=== PATIENT | female | born 1965 | race Caucasian/White ===

== ENCOUNTER 2019-08-05 12:59 | Outpatient (CLI) | payer MEDICAID, SELFPAY ==
--- NOTE | 2019-08-05 13:09 | USCV_ITS ---
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 Biphasic Triphasic 62.7 SFA Prox 73.6 Triphasic Triphasic 72.9 SFA Mid 106.0 Triphasic Triphasic 80.0 SFA Dist 54.8 Biphasic Biphasic 54.2 POP 52.7 Biphasic Biphasic 58.5 RN POOL 43.7 Biphasic Biphasic 19.6 DPA 27.5 Biphasic 1.1 APRIL 1.0 FINDINGS TBI'S RT .68 LT .71 Normal resting ABIs bilaterally Minimally diminished resting TBI on the right side Normal resting TBI on the left side CONCLUSIONS Features of mild peripheral arterial disease on the right side Possibly no significant arterial obstruction on the left side Consider exercise APRIL, if clinically indicated Dr Meño Neff MD [facility] (Electronically Signed) Final Date: 05 August 2019 15:29 S
== END 2019-08-05 13:00 | disposition home or self-care (01) ==
LOC: RAD 13:02
PROVIDERS: Family Provider Family Medicine; PCP Family Medicine; Visit Provider Family Medicine
DX: I73.9 Peripheral vascular disease, unspecified (principal); R25.2 Cramp and spasm; F17.200 Nicotine dependence, unspecified, uncomplicated
CPT/HCPCS: 93925

== ENCOUNTER 2019-08-15 17:44 | Emergency (ER) | payer MEDICAID, SELFPAY ==
[2019-08-15 17:57] VITALS: BP 131/73; PULSE 85; RESP 16; TEMP 36.6; O2SAT 98; BMI 16.1
--- NOTE | 2019-08-15 21:21 | W.ED.EXTPRO ---
HPI - Extremity Problem General: Chief complaint: Extremity Problem,Nontraumatic Stated complaint: BILAT LOWER EXT PAIN Time Seen by Provider: 08/15/19 21:16 History of Present Illness: HPI Narrative: Patient desiring pain medicine for her lower extremity pain patient has had diagnosis of PAD has had 3 separate test ran she is going for a treadmill here in and on the has no other complaints of pain MD Complaint: extremity pain Onset (ago): year(s) Location: left and right Severity scale (1-10): 5 Quality: burning Relieving factors: nothing Associated symptoms: Deny chest pain, fever(s) or rash Review of Systems Const: Denies: fever, chills or body aches Eyes: Denies: change in vision or blurry vision ENMT: Denies: throat pain or nasal congestion Card: Denies: chest pain or shortness of breath on exertion Resp: Denies: shortness of breath, productive cough or non-productive cough GI: Denies: abdominal pain, nausea or vomiting Musc: Reports: extremity pain Skin/Breast: Denies: rash Neuro: Denies: headache Psych: Denies: anxiety or depression Gigi/Lymph: Denies: easy bruising PFSH ED PFSH: Statuses (acute, chronic, etc) shown below reflect problem list status as previously entered and may not be historically accurate Social History Smoking and tobacco status: former smoker Physical Exam Const: COMMON NORMALS: no apparent distress, average body habitus and oriented x3 HENMT: COMMON NORMALS: normocephalic HEAD & SCALP: normal to inspection and normocephalic FACE & SINUS: normal facial exam Eye: COMMON NORMALS: conjunctivae normal GENERAL EYE: normal appearance of both eyes CONJUNCTIVA: Yes conjunctivae normal Neck/C-Spine: COMMON NORMALS: no JVD Chest: COMMONS NORMALS: inspection of chest normal Resp: COMMON NORMALS: normal respiratory effort and clear to auscultation bilaterally AUSCULTATION: clear to auscultation bilaterally Cardio: COMMON NORMALS: no JVD, regular rate and regular rhythm RATE: regular rate RHYTHM: regular rhythm GI: COMMON NORMALS: normal to inspection, nondistended, normoactive bowel sounds Extremity: COMMON NORMALS: normal to inspection and full ROM OTHER: Both lower extremities have 1+ pulses no swelling they are warm to the touch Neuro: COMMON NORMALS: oriented x3 Course Vital Signs: Vital signs: Vital Signs Temperature 97.8 F 08/15/19 17:57 Pulse Rate 85 08/15/19 17:57 Respiratory Rate 16 08/15/19 17:57 Blood Pressure 131/73 08/15/19 17:57 Pulse Oximetry 98 08/15/19 17:57 Discharge Plan Discharge Condition: Stable Coding Level of Care Code 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
[2019-08-15] MEDS: HYDROcodone-acetaminophen 5-325 mg Tablet 1 TAB PO (21:36)
[2019-08-15 21:47] VITALS: BP 112/69; PULSE 82; RESP 18; O2SAT 96
== END 2019-08-15 21:48 | disposition home or self-care (01) ==
PROVIDERS: Emergency Provider Nurse Practitioner Family; Family Provider Family Medicine; PCP Family Medicine
DX: M79.604 Pain in right leg (principal); M79.605 Pain in left leg; Z87.891 Personal history of nicotine dependence
CPT/HCPCS: 99281

== ENCOUNTER 2019-08-23 07:36 | Outpatient (CLI) | payer MEDICAID, SELFPAY ==
--- NOTE | 2019-08-23 07:42 | USCV_ITS ---
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 There is some increase in the post exercise APRIL Normal resting TBIs bilaterally CONCLUSIONS No significant arterial obstruction based on the above findings Consider nonischemic causes for the exertional leg pain Dr Meño Neff MD [facility] (Electronically Signed) Final Date: 24 August 2019 08:40 S
== END 2019-08-23 07:37 | disposition home or self-care (01) ==
LOC: RAD 07:39
PROVIDERS: Family Provider Family Medicine; PCP Family Medicine; Visit Provider Family Medicine
DX: I73.9 Peripheral vascular disease, unspecified (principal); R25.2 Cramp and spasm
CPT/HCPCS: 93922

== ENCOUNTER 2019-09-06 09:29 | Outpatient (CLI) | payer MEDICAID, SELFPAY ==
--- NOTE | 2019-09-06 09:35 | XR_ITS ---
WS: [id number] LUMBAR SPINE: 3 VIEWS TECHNIQUE: AP, lateral and L5-S1 spot. HISTORY: CHRONIC BILATERAL LEG PAIN COMPARISON: 01/24/2019 Very slight LEFT convex curvature of the lumbar spine. Posterior alignment is normal. No fractures. D iffuse osteopenia and facet arthropathy. Extensive postsurgical clips and sutures are noted over the abdomen. Prior tubal ligation. SI joints are symmetric bilaterally. No soft tissue abnormalities. Mild constipation. Calcification in the RIGHT upper abdomen similar to the prior study. XR/XR lumbar spine 2-3V* [id number] IMPRESSION: 1. Very slight LEFT convex curvature of the lumbar spine. 2. Osteopenia with no fractures.
== END 2019-09-06 09:30 | disposition home or self-care (01) ==
LOC: RADWPI 09:32
PROVIDERS: Family Provider Family Medicine; PCP Family Medicine; Visit Provider Family Medicine
DX: M43.8X6 Other specified deforming dorsopathies, lumbar region (principal); M85.88 Other specified disorders of bone density and structure, other site
CPT/HCPCS: 72100

== ENCOUNTER 2019-09-13 15:32 | Outpatient (CLI) | payer MEDICAID, SELFPAY ==
--- NOTE | 2019-09-13 15:44 | XR_ITS ---
WS: [id number] DEXA (DUAL ENERGY X-RAY ABSORPTIOMETRY) Bone mineral density was performed using a [employer] machine. HISTORY: ASYMPTOMATIC POSTMENOPAUSAL STATUS, OSTEOPENIA COMPARISON: None available. Lumbar spine BMD (L1-L4): 0.779 g/cm2 T score: -3.3 Z score: -1.9 Total hip BMD: Left: 0.553 g/cm2. T score: -3.6 Z score: -2.5 Right: 0.576 g/cm2. T score: -3.4 Z score: -2.3 10 year probability of a major osteoporotic fracture is 11%. XR/XR DEXA axial skeleton* [id number] IMPRESSION: OSTEOPOROSIS based upon the WHO classification for females.
== END 2019-09-13 15:33 | disposition home or self-care (01) ==
LOC: RADWPI 15:43
PROVIDERS: Family Provider Family Medicine; PCP Family Medicine; Visit Provider Family Medicine
DX: Z78.0 Asymptomatic menopausal state (principal); M81.0 Age-related osteoporosis without current pathological fracture
CPT/HCPCS: 77080

== ENCOUNTER → 2019-10-12 10:05 | Day surgery (SDC) | payer MEDICAID, SELFPAY ==
[2019-10-12 10:09] VITALS: BMI 17.5
[2019-10-12 10:37] VITALS: BP 94/59; PULSE 86; RESP 20; TEMP 36.8; O2SAT 97
== END ==
PROVIDERS: Family Provider Family Medicine; PCP Family Medicine; Visit Provider Family Medicine
DX: M85.80 Other specified disorders of bone density and structure, unspecified site (principal)
CPT/HCPCS: 96365; J3489

== ENCOUNTER → 2020-01-12 10:52 | Outpatient (BNVA) | payer MEDICAID, SELFPAY | PROVIDERS: Family Provider Family Medicine; PCP Family Medicine; Visit Provider Specialist | DX: G25.81 Restless legs syndrome (principal) | CPT/HCPCS: 95909 ==

== ENCOUNTER 2020-01-20 20:14 | Emergency (ER) | payer MEDICAID, SELFPAY ==
[2020-01-20] VITALS (8 sets, daily range): BP systolic 116–136; BP diastolic 65–87; PULSE 85–100; RESP 17–22; TEMP 36.4; O2SAT 93–99; BMI 18.8
--- NOTE | 2020-01-20 20:30 | ED_ITS ---
HPI - Fall General: Chief Complaint: Fall Stated Complaint: weakness/ fall Time Seen by Provider: 01/20/20 20:28 History of Present Illness: HPI Narrative: Patient is a 54-year-old female comes to the ED via EMS after having a fall at home. Fall occurred just prior to arrival. Patient says she felt a little dizzy and fell onto her carpet. She denies any loss of consciousness, head injury, or any neurological symptoms. Patient denies being on a blood thinner. Patient currently reports right hip pain and left knee pain. Patient says she has been sick with nasal congestion/drainage, ear pain, dry cough, nausea and a little bit of diarrhea for the past 3 days. She also describes that she has been eating and drinking much over the past couple days as well. Associated symptoms-after fall: Denies abdominal pain, chest pain, headache(s), hematuria or neck pain Review of Systems Const: Denies: fever(s), chills or fatigue Eyes: Denies: change in vision or eye discomfort ENMT: Reports: throat pain and ear or mastoid pain; Denies: odynophagia, nasal discharge or nasal congestion Card: Denies: chest pain, palpitations, edema, swelling of feet/ankles, dyspnea on exertion or orthopnea Resp: Reports: non-productive cough; Denies: dyspnea or productive cough GI: Denies: abdominal pain, nausea, vomiting, diarrhea, constipation or hematochezia : Denies: flank pain, dysuria or hematuria Musc: Reports: extremity pain (right hip and left knee); Denies: neck pain, back pain or extremity swelling Skin/Breast: Denies: rash or new lesions Neuro: Denies: headache(s), numbness in extremities or weakness in extremities PFS ED PFSH: Social History Smoking and tobacco status: former smoker Physical Exam Const: COMMON NORMALS: patient oriented x3 and alert GENERAL APPEARANCE: cooperative and comfortable HENMT: COMMON NORMALS: normocephalic HEAD & SCALP: normocephalic TYMPANIC MEMBRANE: TM abnormal TM laterality: bilateral bulging, erythematous and with fluid behind the TM MOUTH: moist mucous membranes abnormal (mild) THROAT: uvula midline and posterior oropharynx abnormal cobblestoning Eye: COMMON NORMALS: Equal, round and reactive pupils present PUPIL: Yes Equal, round and reactive pupils present Neck/C-Spine: COMMON NORMALS: supple GENERAL: Yes normal visual inspection Resp: COMMON NORMALS: normal respiratory effort, No retractions, No use of accessory muscles and clear to auscultation bilaterally AUSCULTATION: clear to auscultation bilaterally Cardio: COMMON NORMALS: regular rate, regular rhythm, S1 normal heart sound present, S2 normal heart sound present, No gallops present (Cardio), No clicks present (Cardio), No murmurs present (Cardio) and Peripheral pulses 2+ throughout RATE: regular rate RHYTHM: regular rhythm HEART SOUNDS: S1 normal heart sound present and S2 normal heart sound present PERIPHERAL PULSES: Peripheral pulses 2+ throughout GI: COMMON NORMALS: Normal to inspection, nondistended, normoactive bowel sounds present, Soft to palpation, non-tender and no masses PALPATION: Yes Soft to palpation : COMMON NORMALS: Yes no CVA tenderness BLADDER/KIDNEY EXAM: Yes no CVA tenderness Back/Pelvis: COMMON NORMALS: no CVA tenderness Extremity: COMMON NORMALS: no pedal edema RIGHT LOWER EXTREMITY: Yes hip joint Right hip: Yes inspection (No erythema, ecchymosis or swelling. No visible deformity), Yes palpation (Mild tenderness upon palpation ), Yes ROM (intact) and Yes neurovascular exam (intact) LEFT LOWER EXTREMITY: Yes knee joint Left knee: Yes inspection (Mild swelling and a little ecchymosis seen.), Yes palpation (Mild tenderness on the medial side of the knee.), Yes ROM (full) and Yes neurovascular exam (intact) Neuro: COMMON NORMALS: patient oriented x3 and moves all extremities SENSORIUM/ORIENTATION: Yes alert Skin: COMMON NORMALS: no rashes or lesions noted GENERAL SKIN EXAM: no rashes or lesions noted and dry skin Course Vital Signs: Vital signs: Vital Signs Temperature 97.6 F 01/20/20 20:16 Pulse Rate 17 L 01/21/20 00:52 Respiratory Rate 94 H 01/21/20 00:52 Blood Pressure 116/78 01/21/20 00:52 Pulse Oximetry 98 01/21/20 00:52 MDM - Fall MDM Narrative: Medical decision making narrative: Patient is a 54-year-old female comes to the ED after having a near syncope fall with left knee pain and right hip pain. Patient was also having nasal congestion, ear pain sore throat and dry cough. Physical exam was remarkable for bilateral TM erythema and fluid behind the ear. CBC, CMP were unremarkable. Troponins were negative and EKG showed normal sinus rhythm. Chest x-ray showed no acute findings. X-ray of right hip and left knee showed no acute fractures. Patient was diagnosed with otitis media, right hip pain and contusion to the left knee. Patient was given a prescription of azithromycin to treat otitis media. She was told to take Tylenol or ibuprofen to help with pain and fevers. Rest and ice hip and knee. Follow-up with PCP in 7 to 10 days for reevaluation. Patient understood and agreed with plan. Lab Data: Attestation: I reviewed the patient's lab results. Labs: Lab Results 01/20/20 01/20/20 01/20/20 Range/Units 19:22 19:22 19:22 WBC 4.6 (4.0-10.0) 10^3/ uL RBC 4.72 (4.1-5.3) 10^6/u L Hgb 14.3 (11.5-15.3) g/dL Hct 42.4 (37.0-47.0) % MCV 89.8 (81-99) fL MCH 30.3 (28.0-34.0) pg MCHC 33.7 (30.0-36.0) g/dL RDW 11.7 L (12.1-15.1) % Plt Count 196 (130-400) 10^3/c mm MPV 10.5 H (7.4-10.4) fL Neut % (Auto) 41.9 % Lymph % (Auto) 40.9 % [place] % (Auto) 12.0 % Eos % (Auto) 5.0 % Baso % (Auto) 0.2 % Neut # (Auto) 1.9 (1.8-7.7) 10^3/u L Lymph # (Auto) 1.9 (0.8-4.8) 10^3/u L [place] # (Auto) 0.6 (0.2-0.9) 10^3/u L Eos # (Auto) 0.2 (0.0-0.8) 10^3/u L Baso # (Auto) 0.0 (0.0-0.1) 10^3/u L Nucleated RBC % (a uto) 0 % Nucleated RBCs # 0.0 /100WBC Sodium 136 (136-145) mmol/L Potassium 3.9 (3.5-5.1) mmol/L Chloride 99 (98-107) mmol/L Carbon Dioxide 24 (22-29) mmol/L Anion Gap 16.9 (5-19) BUN 16 (6-20) mg/dL Creatinine 0.5 (0.5-0.9) mg/dL GFR Calculation 128.6 (90-130) mL/min Glucose 107 (65-115) mg/dL Calculated Osmolal ity 279 L (285-295) mOsm/k g Calcium 9.3 (8.5-10.5) mg/dL Total Bilirubin 0.3 (0.15-1.2) mg/dL AST 22 (0-32) U/L ALT 11 (0-33) U/L Alkaline Phosphata se 92 (35-105) IU/L Troponin T Baselin e 6 (0-10) ng/L Troponin T 120 Min [place] (0-10) ng/L Delta Troponin T (0-10) ABS# Total Protein 7.1 (6.6-8.7) g/dL Albumin 4.7 (3.5-5.2) g/dL Globulin 2.4 (1.3-4.6) g/dL Influenza Type A A g (Negative) Influenza Type B A g (Negative) 01/20/20 01/20/20 Range/Units 21:30 22:05 WBC (4.0-10.0) 10^3/ uL RBC (4.1-5.3) 10^6/u L Hgb (11.5-15.3) g/dL Hct (37.0-47.0) % MCV (81-99) fL MCH (28.0-34.0) pg MCHC (30.0-36.0) g/dL RDW (12.1-15.1) % Plt Count (130-400) 10^3/c mm MPV (7.4-10.4) fL Neut % (Auto) % Lymph % (Auto) % [place] % (Auto) % Eos % (Auto) % Baso % (Auto) % Neut # (Auto) (1.8-7.7) 10^3/u L Lymph # (Auto) (0.8-4.8) 10^3/u L [place] # (Auto) (0.2-0.9) 10^3/u L Eos # (Auto) (0.0-0.8) 10^3/u L Baso # (Auto) (0.0-0.1) 10^3/u L Nucleated RBC % (a uto) % Nucleated RBCs # /100WBC Sodium (136-145) mmol/L Potassium (3.5-5.1) mmol/L Chloride (98-107) mmol/L Carbon Dioxide (22-29) mmol/L Anion Gap (5-19) BUN (6-20) mg/dL Creatinine (0.5-0.9) mg/dL GFR Calculation (90-130) mL/min Glucose (65-115) mg/dL Calculated Osmolal ity (285-295) mOsm/k g Calcium (8.5-10.5) mg/dL Total Bilirubin (0.15-1.2) mg/dL AST (0-32) U/L ALT (0-33) U/L Alkaline Phosphata se (35-105) IU/L Troponin T Baselin e (0-10) ng/L Troponin T 120 Min [place] 6.03 (0-10) ng/L Delta Troponin T 0.03 (0-10) ABS# Total Protein (6.6-8.7) g/dL Albumin (3.5-5.2) g/dL Globulin (1.3-4.6) g/dL Influenza Type A A g Negative (Negative) Influenza Type B A g Negative (Negative) Imaging Data^: Xray Ortho: Attestation: I personally reviewed and interpreted this imaging study as follows: Radiologist's impression: [address] [address] XRay Report Signed Patient: Radha Maguire Unit #: [id number] : 1965 Age/Sex: 54 / F ADM Date: 01/20/20 Loc: ER Room/Bed: Attending Dr: Ordering Provider/Ordering MD: Chon Bedoya Date of Service: 01/20/20 Procedure(s): XR knee LT 3V* [id number] Accession Number(s): [id number] Report Number: [id number] PROCEDURE INFORMATION: Exam: XR Left Knee Exam date and time: 01/20/2020 8:53 PM Age: 54 years old Clinical indication: Injury or trauma; Fall; Initial encounter; Blunt trauma; Knee; Left; Additional info: Fall with knee pain TECHNIQUE: Imaging protocol: XR Left knee. Views: 3 views. COMPARISON: No relevant prior studies available. FINDINGS: Bones/joints: There is no knee joint effusion. The joint spaces are maintained. No acute fracture or dislocation. No chondrocalcinosis. Soft tissues: There is no foreign body. Other findings: There is no intra-articular body. XR/XR knee LT 3V* [id number] IMPRESSION: No acute bony abnormality. Dictated By: Christal Acuña Signed By: Christal Acuña Signed Date/Time: 01/20/202122 DD/ [address] [address] XRay Report Signed Patient: Radha Maguire Unit #: [id number] : 1965 Age/Sex: 54 / F ADM Date: 01/20/20 Loc: ER Room/Bed: Attending Dr: Ordering Provider/Ordering MD: Chon Bedoya Date of Service: 01/20/20 Procedure(s): XR hip RT 2-3V wo/w pel* [id number] Accession Number(s): [id number] Report Number: [id number] PROCEDURE INFORMATION: Exam: XR Right Hip with Pelvis when Performed Exam date and time: 01/20/2020 8:51 PM Age: 54 years old Clinical indication: Injury or trauma; Fall; Initial encounter; Blunt trauma (contusions or hematomas); Right; Hip; Additional info: Right hip pain after fall TECHNIQUE: Imaging protocol: XR Right hip with pelvis when performed. Views: 1 view. COMPARISON: No relevant prior studies available. FINDINGS: Bones/joints: The bone density is appropriate. No acute fracture or dislocation. No bony destructive changes. Joint spaces are maintained. No sacroiliitis. Soft tissues: No foreign body. No gas in the soft tissues. Intraperitoneal space: There are tubal ligation clips in the pelvis. Other findings: No periosteal reaction. No osteomyelitis. XR/XR hip RT 2-3V wo/w pel* [id number] IMPRESSION: No acute bony abnormality. Dictated By: Christal Acuña Signed By: Christal Acuña Signed Date/Time: 01/20/202123 DD/ 21 CXR: Attestation: I personally reviewed and interpreted this imaging study as follows: Radiologist's impression: [address] [address] XRay Report Signed Patient: Radha Maguire #: [id number] : 1965Acct#:[id number] Age/Sex: 54 / FADM Date: 01/20/20 Loc: ERRoom/Bed: Attending Dr: Ordering Provider/Ordering MD: Chon Bedoya Date of Service: 01/20/20 Procedure(s): XR chest 1V portable [id number] Accession Number(s): [id number] Report Number: [id number] PROCEDURE INFORMATION: Exam: XR Chest, 1 View Exam date and time: 01/20/2020 9:39 PM Age: 54 years old Clinical indication: Cough; Additional info: Cough, near syncope TECHNIQUE: Imaging protocol: XR of the chest Views: 1 view. COMPARISON: No relevant prior studies available. FINDINGS: Lungs: Unremarkable. No consolidation. The lungs are hyperinflated but clear. Pleural space: Unremarkable. No pleural effusion. No pneumothorax. Heart/Mediastinum: Unremarkable. No cardiomegaly. Bones/joints: No acute abnormality. XR/XR chest 1V portable [id number] IMPRESSION: No acute findings. Dictated By:Christal Acuña Signed By:Mehul Acuña Date/Time:01/20/202146 DD/ 44 EKG Data^: EKG 1: Attestation: I personally reviewed and interpreted this EKG as follows: EKG interpretation date: 01/20/20 Interpretation: Normal sinus rhythm, 89 bpm, no ST segment elevation or depression seen. P waves present. Discharge Plan Discharge Patient Disposition: Home, Self-Care Clinical Impression: Hip pain, right Otitis media of both ears Qualifiers: Otitis media type: suppurative Chronicity: acute Recurrence: non-recurrent Spontaneous tympanic membrane rupture: without spontaneous rupture Qualified Code(s): H66.003 - Acute suppurative otitis media without spontaneous rupture of ear drum, bilateral Contusion Qualifiers: Encounter type: initial encounter Contusion area: knee Laterality: left Qualified Code(s): S80.02XA - Contusion of left knee, initial encounter Condition: Stable Prescriptions: New azithromycin 250 mg tablet 250 mg PO DAILY 4 Days Qty: 4 RF: 0 No Action tizanidine 2 mg tablet 2 mg PO TID PRN (Reason: Spasms) RF: 0 Excedrin Extra Strength 250-250-65 mg Tablet 1 tab PO Q6H PRN (Reason: Pain) RF: 0 Discharge Orders: Discharge Order (Routine); Ordered 01/21/20 Ordered By: Chon Bedoya Discharge Diet: Regular Discharge Activity: Increase activity as tolerated Patient Instructions: Otitis Media - Adult, Contusion in Adults (ED) Activity Restrictions/Additional Instructions: Contact your primary care physician and set up an appointment for reevaluation next 7 to 10 days. Take full course of antibiotic as prescribed. Drink plenty of fluids and stay hydrated. Apply ice or cold pack on knee and hip to help with symptoms. Rest and elevate left leg to help with swelling. Take ibuprofen or Tylenol for pain or fevers. 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
--- NOTE | 2020-01-20 21:07 | XRR_ITS ---
PROCEDURE INFORMATION: Exam: XR Chest, 1 View Exam date and time: 01/20/2020 9:39 PM Age: 54 years old Clinical indication: Cough; Additional info: Cough, near syncope TECHNIQUE: Imaging protocol: XR of the chest Views: 1 view. COMPARISON: No relevant prior studies available. FINDINGS: Lungs: Unremarkable. No consolidation. The lungs are hyperinflated but clear. Pleural space: Unremarkable. No pleural effusion. No pneumothorax. Heart/Mediastinum: Unremarkable. No cardiomegaly. Bones/joints: No acute abnormality. XR/XR chest 1V portable [id number] IMPRESSION: No acute findings.
--- NOTE | 2020-01-20 21:08 | ECG_ITS ---
[facility] ED Test Date: 2020-01-20 Pat Name: Radha Maguire Department: Room: Gender: Female Last Scourer: : 1965 Requested By: Chon Bedoya Order Number: [id number] Diaz MD: Shahnaz Stone M.D. Measurements Intervals [place] Rate: 89 P: 59 UT: 104 QRS: 59 QRSD: 93 T: 72 QT: 338 QTc: 413 Interpretive Statements SINUS RHYTHM WITH SHORT UT INTERVAL INCOMPLETE RIGHT BUNDLE BRANCH BLOCK Compared to ECG 12/23/2018 01:18:09 Short UT interval now present Incomplete right bundle-branch block now present Electronically Signed On 01-21-2020 22:49:58 CDT by Shahnaz Stone M.D. [email or web address]
[2020-01-20] MEDS: morphine 4 mg/mL SDV 1 mL 2 MG IVP ×2 (21:36→22:48)
[2020-01-20] MEDS: ondansetron 2 mg/ML SDV 2 mL 4 MG IVP (21:36)
[2020-01-20] MEDS: sodium chloride 0.9% 1,000 ML 999 ML IV (21:37)
[2020-01-20 21:38] LABS: Basophils % 0.2 %; Eosinophils # 0.2 10^3/uL (0.0-0.8); Hematocrit 42.4 % (37.0-47.0); Hemoglobin 14.3 g/dL (11.5-15.3); Lymphocytes # 1.9 10^3/uL (0.8-4.8); Lymphocytes % 40.9 %; Mean Corpuscular HGB Conc 33.7 g/dL (30.0-36.0); Mean Corpuscular Hemoglobin 30.3 pg (28.0-34.0); Mean Corpuscular Volume 89.8 fL (81-99); Mean Platelet Volume 10.5 fL (7.4-10.4); Monocytes # 0.6 10^3/uL (0.2-0.9); Neutrophils # 1.9 10^3/uL (1.8-7.7); Neutrophils % 41.9 %; Nucleated Red Blood Cells % 0 %; Platelet Count 196 10^3/cmm (130-400); Red Blood Count 4.72 10^6/uL (4.1-5.3); Red Cell Distribution Width 11.7 % (12.1-15.1); White Blood Count 4.6 10^3/uL (4.0-10.0)
[2020-01-20 21:48] LABS: Alanine Aminotransferase 11 U/L (0-33); Albumin Level 4.7 g/dL (3.5-5.2); Alkaline Phosphatase 92 IU/L (35-105); Anion Gap 16.9 (5-19); Blood Urea Nitrogen 16 mg/dL (6-20); Calcium 9.3 mg/dL (8.5-10.5); Carbon Dioxide 24 mmol/L (22-29); Chloride 99 mmol/L (98-107); Globulin 2.4 g/dL (1.3-4.6); Glomerular Filtration Rate 128.6 mL/min (90-130); Glucose 107 mg/dL (65-115); Osmolality Calculated 279 mOsm/kg (285-295); Potassium 3.9 mmol/L (3.5-5.1); Sodium 136 mmol/L (136-145); Total Bilirubin 0.3 mg/dL (0.15-1.2); Total Protein 7.1 g/dL (6.6-8.7); Troponin(5th) Baseline 6 ng/L (0-10)
[2020-01-20 22:20] LABS: Aspartate Amino Transferase 22 U/L (0-32)
[2020-01-20 22:36] LABS: Troponin 5 2HR 6.03 ng/L (0-10); Troponin 5 2HR Delta 0.03 ABS# (0-10)
[2020-01-20 22:47] LABS: Influenza A by IFA Negative (Negative); Influenza B by IFA Negative (Negative)
[2020-01-21 00:30] VITALS: BP 111/57; PULSE 93; RESP 17; O2SAT 97
[2020-01-21] MEDS: azithromycin 250 mg Tablet 500 MG PO (00:32)
[2020-01-21 00:52] VITALS: BP 116/78; PULSE 17; RESP 94; O2SAT 98
== END 2020-01-21 00:53 | disposition home or self-care (01) ==
PROVIDERS: Emergency Provider Physician Assistant
DX: H66.003 Acute suppurative otitis media without spontaneous rupture of ear drum, bilateral (principal); S80.02XA Contusion of left knee, initial encounter; M25.551 Pain in right hip; Z87.891 Personal history of nicotine dependence; W19.XXXA Unspecified fall, initial encounter
CPT/HCPCS: 12345; 71045; 73502; 73562; 80053; 84484; 85025; 87040; 87804; 93005; 96361; 96374; 96375; 96376; 99283; 99284; J2270; J2405; J7030; Q0144

== ENCOUNTER → 2020-04-02 08:16 | Outpatient (BNVA) | payer MEDICAID, SELFPAY | PROVIDERS: Referring Provider Family Medicine; Visit Provider Specialist | DX: G62.9 Polyneuropathy, unspecified (principal); R63.4 Abnormal weight loss; Z90.49 Acquired absence of other specified parts of digestive tract; Z87.891 Personal history of nicotine dependence; Z87.19 Personal history of other diseases of the digestive system | CPT/HCPCS: 99205 ==

== ENCOUNTER 2020-04-02 09:42 | Outpatient (CLI) | payer MEDICAID, SELFPAY ==
[2020-04-02 11:11] LABS: Basophils % 0.2 %; Eosinophils # 0.2 10^3/uL (0.0-0.8); Eosinophils % 4.4 %; Hematocrit 42.5 % (37.0-47.0); Lymphocytes # 1.4 10^3/uL (0.8-4.8); Mean Corpuscular HGB Conc 32.9 g/dL (30.0-36.0); Mean Corpuscular Hemoglobin 30.3 pg (28.0-34.0); Mean Platelet Volume 10.6 fL (7.4-10.4); Monocytes # 0.4 10^3/uL (0.2-0.9); Monocytes % 6.6 %; Neutrophils # 3.38 10^3/uL (1.8-7.7); Neutrophils % 62.4 %; Nucleated Red Blood Cells % 0 %; Platelet Count 190 10^3/cmm (130-400); Red Blood Count 4.62 10^6/uL (4.1-5.3); Red Cell Distribution Width 12.5 % (12.1-15.1); White Blood Count 5.4 10^3/uL (4.0-10.0)
[2020-04-02 12:00] LABS: Alanine Aminotransferase 14 U/L (0-33); Albumin Level 4.8 g/dL (3.5-5.2); Alkaline Phosphatase 110 IU/L (35-105); Anion Gap 14.1 (5-19); Aspartate Amino Transferase 20 U/L (0-32); Blood Urea Nitrogen 16 mg/dL (6-20); Calcium 9.6 mg/dL (8.5-10.5); Carbon Dioxide 28 mmol/L (22-29); Chloride 103 mmol/L (98-107); Free T4 Free Thyroxine 1.16 ng/dL (0.82-1.77); Globulin 2.8 g/dL (1.3-4.6); Glomerular Filtration Rate 86.9 mL/min (90-130); Glucose 99 mg/dL (65-115); Osmolality Calculated 288 mOsm/kg (285-295); Potassium 4.1 mmol/L (3.5-5.1); Sodium 141 mmol/L (136-145); Thyroid Stimulating Hormone 3.23 uIU/mL (0.27-4.20); Total Bilirubin 0.2 mg/dL (0.15-1.2); Total Protein 7.6 g/dL (6.6-8.7)
[2020-04-02 12:07] LABS: Estmated Average Glucose 94; Hemoglobin A1C 4.9 % (4.0-6.0)
[2020-04-02 12:12] LABS: Erythrocyte Sedimentation Rate 11 mm/hr (0-15)
[2020-04-02 14:53] LABS: Folate Level 15.2 ng/mL (4.8-37.3); Vitamin B12 359 pg/mL (232-1245)
[2020-04-04 12:12] LABS: CENTROMERE B ANTIBODY <1.0 NEG AI (<1.0 NEG); JO-1 ANTIBODY <1.0 NEG AI (<1.0 NEG); RNP ANTIBODY <1.0 NEG AI (<1.0 NEG); SCL-70 ANTIBODY <1.0 NEG AI (<1.0 NEG); SJOGREN'S ANTIBODY (SS-A) <1.0 NEG AI (<1.0 NEG); SM ANTIBODY <1.0 NEG AI (<1.0 NEG)
[2020-04-04 13:12] LABS: COMPLEMENT COMPONENT C3C 131 mg/dL (83-193); COMPLEMENT COMPONENT C4C 15 mg/dL (15-57)
[2020-04-04 15:38] LABS: COMPLEMENT, TOTAL (CH50) >60 U/mL (31-60)
[2020-04-04 16:02] LABS: THYROID PEROXIDASE ANTIBODIES 5 IU/mL (<9)
[2020-04-05 14:47] LABS: ANA SCREEN, IFA NEGATIVE (NEGATIVE)
[2020-04-05 22:57] LABS: Vitamin B1(Thiamin) Plas/Ser 10 nmol/L (8-30)
[2020-04-06 00:52] LABS: DNA AB (DS) CRITHIDIA,IFA NEGATIVE (NEGATIVE)
[2020-04-06 01:27] LABS: Methylmalonic Acid 460 nmol/L (87-318)
== END 2020-04-02 09:43 | disposition home or self-care (01) ==
LOC: LAB 09:44
PROVIDERS: PCP Nurse Practitioner Family; Visit Provider Specialist
DX: R20.0 Anesthesia of skin (principal); R20.2 Paresthesia of skin; R73.9 Hyperglycemia, unspecified
CPT/HCPCS: 36415; 80053; 82607; 82746; 83036; 83921; 84425; 84439; 84443; 85025; 85651

== ENCOUNTER → 2020-05-02 09:39 | Outpatient (BNVA) | payer MEDICAID, SELFPAY | PROVIDERS: PCP Nurse Practitioner Family; Visit Provider Specialist | DX: G43.711 Chronic migraine without aura, intractable, with status migrainosus (principal); R63.4 Abnormal weight loss; G62.9 Polyneuropathy, unspecified; Z87.891 Personal history of nicotine dependence; Z90.49 Acquired absence of other specified parts of digestive tract | CPT/HCPCS: 99214 ==

== ENCOUNTER 2020-05-31 08:44 | Outpatient (CLI) | payer MEDICAID, SELFPAY ==
--- NOTE | 2020-05-31 09:15 | CT_ITS ---
WS: [id number] Exam: CT chest con [id number] Date/Time of Exam: 05/31/2020 9:00 AM Reason For Exam: Smoker, losing weight DLP: 452.[address] scans at [facility] use at least one of these dose optimization techniques: automat ed exposure control; mA and/or kV adjustment per patient size (includes targeted exams where dose is matched to clinical indication); or iterative reconstruction. Comparison 12/11/2017. The lungs are clear and fully expanded. Mild emphysematous changes and hyperinflation. The airway is patent. The thoracic aorta is normal in caliber. No mediastinal or hilar lymphadenopathy. No pleural or pericardial effusion. No axillary lymphadenopathy. No destructive bone lesions. Mild pectus excava tricia. Thoracic scoliosis. No significant change since previous study. CT/CT chest con [id number] IMPRESSION: 1. Mild emphysematous changes and hyperinflation. 2. No sign of pulmonary nodule or mass. No lymphadenopathy in the chest.
== END 2020-05-31 08:45 | disposition home or self-care (01) ==
LOC: RADWPI 08:47
PROVIDERS: PCP Nurse Practitioner Family; Visit Provider Specialist
DX: R63.4 Abnormal weight loss (principal); F17.200 Nicotine dependence, unspecified, uncomplicated
CPT/HCPCS: 71250

== ENCOUNTER 2020-07-04 11:00 | Outpatient (CLI) | payer MEDICAID, SELFPAY ==
--- NOTE | 2020-07-04 11:45 | MR_ITS ---
WS: [id number] MRI HEAD WITHOUT CONTRAST TECHNIQUE: Sagittal T1, T2 axial, T2 axial FLAIR, axial and coronal T1 images, axial susceptibility w eighted imaging, axial diffusion weighted images, and coronal T2 images were obtained. CLINICAL INFORMATION: G43.909 Migraine, unspecified, not intractable, without s... COMPARISON: MRI 2 17,010 FINDINGS: No evidence of restricted diffusion to suggest acute ischemia. Ventricular system and basal cisterns are patent. Moderate patchy supratentorial white matter changes progressed since 2009. Moderate paren chymal volume loss. White matter changes nonspecific in a patient this age but can be seen with hyper tension, diabetes, small vessel disease, and migraine headaches. Normal posterior fossa. Normal vascular flow voids at the skull base. No extra-axial fluid collection s. No evidence of mass or mass effect. Paranasal sinuses well aerated. Mild mucosal thickening in the mastoid air cells. No hemosiderin on susceptibly weighted images. Normal optic chiasm and pituitary infundibulum. Mild symmetric atrophy involving the temporal lobes and hippocampal formations. MR/MR head wo con* [id number] IMPRESSION: 1. No evidence of restricted diffusion to suggest acute ischemia. 2. Moderate patchy supratentorial white matter changes progressed since 2009. This is nonspecific in a patient this age but can be seen with hypertension, di abetes, small vessel disease, and migraine headaches. 3. Moderate parenchymal volume loss progressed since 2009. 4. Mild mucosal thickening in the right greater than left mastoid air cells. P aranasal sinuses well aerated. 5. Mild symmetric atrophy involving the temporal lobes and hippocampal formati ons.
== END 2020-07-04 11:01 | disposition home or self-care (01) ==
PROVIDERS: PCP Nurse Practitioner Family; Visit Provider Specialist
DX: G43.909 Migraine, unspecified, not intractable, without status migrainosus (principal); G31.9 Degenerative disease of nervous system, unspecified
CPT/HCPCS: 70551

== ENCOUNTER 2020-07-04 11:59 | Emergency (ER) | payer MEDICAID, SELFPAY ==
[2020-07-04 12:09] VITALS: BP 134/87; PULSE 104; RESP 18; TEMP 36.3; O2SAT 96; BMI 17.6
--- NOTE | 2020-07-04 12:24 | XR_ITS ---
WS: [id number] Portable AP upright chest, 07/04/2020 Clinical Data: cough Comparison: Portable chest, 01/20/2020. Findings: No nodules, masses or effusions are seen. The heart is normal. The pulmonary vascularity is not increased. No pneumonia or pneumothorax is seen. There are left upper quadrant surgical clips. XR/XR chest 1V portable [id number] Impression: Negative chest.
[2020-07-04 16:55] VITALS: O2SAT 97
--- NOTE | 2020-07-04 17:08 | W.ED.COVID ---
HPI - COVID General: Chief Complaint: COVID symptoms Stated Complaint: SEVERE HEADACHE X 1 WK, SORE THROAT, NAUSEA Time Seen by Provider: 07/04/20 15:52 Triage information: Has fever, cough or shortness of breath. No known COVID + exposure last 14 days History of Present Illness: HPI Narrative: 55-year-old female patient presents to the emergency department with 7-day history of migraine headache. She reports headache has been on and off, reports nausea with body aches and nonproductive cough. She had MRI brain completed today and states cannot take her headache any longer. MRI results reviewed without concerning findings that are emergent at this time. She denies fever chills, reports nausea with headache,reports headache is typical migraine. She also reports rash to the left chest, outbreak 2 days ago. She reports 2 days prior to appearance of the rash, skin tenderness/pain with itching. She denies history of shingles. COVID 19 common symptoms: positive cough, fatigue (Reports chronic), body aches, nausea and vomiting (X2, none today); negative fever(s), chills, non-productive cough, productive cough, dyspnea, headache(s), loss of sense of smell and/or taste, throat pain, nasal congestion or diarrhea COVID 19 other sytmptoms: negative chest pain, requiring oxygen or respiratory distress Onset (ago): week(s) (7) Pertinent comorbid conditions: other (Migraine headache) Treatment prior to arrival: acetaminophen and ibuprofen COVID Results: No Data to Display Review of Systems General: Reports: 10 or more systems reviewed and unremarkable except in HPI and below Const: Reports: body aches and fatigue (Reports chronic); Denies: fever(s), chills or diaphoresis Eyes: Denies: blurry vision or eye redness ENMT: Denies: throat pain, dental pain, disequilibrium or nasal congestion Card: Denies: chest pain, palpitations, irregular heart rhythm, swelling of feet/ankles, lightheadedness or dyspnea on exertion Resp: Denies: dyspnea, productive cough, non-productive cough, wheezing or chest congestion GI: Reports: nausea and vomiting (X2, none today); Denies: abdominal pain, diarrhea or GI cramping : Denies: difficulty voiding or dysuria Musc: Denies: neck pain, back pain, joint pain or joint stiffness Skin/Breast: Reports: rash (Left chest), skin tenderness (Left chest) and changes in skin color (Left chest); Denies: pruritus Neuro: Denies: headache(s), weakness in extremities or behavioral changes Psych: Denies: anxiety, depression or change in appetite Gigi/Lymph: Denies: easy bruising PFSH ED PFSH: Social History Smoking and tobacco status: former smoker Alcohol intake: former Physical Exam Const: COMMON NORMALS: no acute distress, patient oriented x3, healthy appearing and alert GENERAL APPEARANCE: cooperative, comfortable, well kempt, frail appearing and well hydrated; not combative and not ill appearing NUTRITIONAL APPEARANCE: thin ORIENTATION/CONSCIOUSNESS: Yes awake, Yes oriented to person, Yes oriented to place and Yes oriented to time HENMT: COMMON NORMALS: normocephalic, atraumatic, EAC's normal, Normal external nose present and moist oral mucous membranes HEAD & SCALP: normocephalic, atraumatic and scalp tenderness; no scalp lesion FACE & SINUS: normal facial exam, sinuses nontender and face symmetric NOSE: Normal external nose present EXTERNAL AUDITORY CANAL: EAC's normal MOUTH: Normal oral and palatal mucosa present THROAT: posterior oropharynx normal Eye: COMMON NORMALS: Equal, round and reactive pupils present and EOMs intact bilaterally GENERAL EYE: appearance normal, both eyes and all related structures PUPIL: Yes Equal, round and reactive pupils present Neck/C-Spine: COMMON NORMALS: full ROM and no lymphadenopathy GENERAL: Yes normal visual inspection and Yes trachea midline CERVICAL SPINE: Yes cervical ROM normal Lymph: LYMPHATIC: no lymphadenopathy noted Chest: COMMONS NORMALS: normal inspection of the chest and normal palpation of entire chest wall CHEST: No localized rib tenderness with anteroposterior compression Resp: COMMON NORMALS: normal respiratory effort, No retractions, No use of accessory muscles and clear to auscultation bilaterally EFFORT & INSPECTION: Yes able to speak in complete sentences and No paradoxical thoraco-abdominal movements AUSCULTATION: clear to auscultation bilaterally Cardio: COMMON NORMALS: regular rhythm, S1 normal heart sound present, S2 normal heart sound present and Peripheral pulses 2+ throughout PALPATION: normal PMI RHYTHM: regular rhythm HEART SOUNDS: S1 normal heart sound present and S2 normal heart sound present PERIPHERAL PULSES: Peripheral pulses 2+ throughout GI: COMMON NORMALS: Normal to inspection, nondistended, normoactive bowel sounds present, Soft to palpation, non-tender and No hepatosplenomegaly present INSPECTION: Yes normal to inspection, No Abdominal wall edema and No abdominal distension AUSCULTATION: Yes normoactive bowel sounds PALPATION: Yes Soft to palpation, No Firmness to palpation present (GI) and Yes No hepatosplenomegaly present : COMMON NORMALS: Yes no CVA tenderness BLADDER/KIDNEY EXAM: Yes no CVA tenderness Back/Pelvis: COMMON NORMALS: no CVA tenderness, thoracic and lumbar spine normal to inspection, no thoracic nor lumbar tenderness, thoraco-lumbar ROM normal and straight leg raise negative bilaterally Extremity: COMMON NORMALS: normal to inspection and capillary refill normal Neuro: COMMON NORMALS: patient oriented x3 and no focal motor deficits SENSORIUM/ORIENTATION: Yes alert, Yes oriented to person, Yes oriented to place and Yes oriented to time Psych: COMMON NORMALS: mental status grossly normal, Normal thought process present, cooperative and speech normal APPEARANCE: Yes well kempt ATTITUDE: Yes calm ACTIVITY/MOTOR BEHAVIOR: Yes appropriate eye contact SPEECH: Yes normal speech THOUGHT PROCESS: Normal thought process present Skin: COMMON NORMALS: turgor normal GENERAL SKIN EXAM: turgor normal and Excoriation (left chest x 2, 1 cm x 1.5 cm flat with scab formation) Course ED course: 55-year-old female patient presents to the emergency department with migraine headache. MRI brain results were reviewed, no emergent findings present. Nursing staff attempted several times to attempt IV access for serology and IV fluids/medication. Unsuccessful, patient states would rather have a shot and try to go home with oral medication. I discussed with her my concern with shingles, new outbreak, and need to control migraine. She reports would like oral medication and agrees to come back to the emergency department in the event symptoms worsen or she fails to improve. Vital Signs: Vital signs: Vital Signs Temperature 97.3 F L 07/04/20 12:09 Pulse Rate 104 H 07/04/20 12:09 Respiratory Rate 18 07/04/20 17:14 Blood Pressure 134/87 07/04/20 12:09 Pulse Oximetry 97 07/04/20 17:14 MDM - COVID COVID Results: No Data to Display Discharge Plan Discharge Patient Disposition: Home Clinical Impression: Migraine headache Qualifiers: Migraine type: unspecified Status migrainosus presence: with status migrainosus Intractability: intractable Qualified Code(s): G43.911 - Migraine, unspecified, intractable, with status migrainosus Shingles Qualifiers: Herpes zoster complications: without complications Qualified Code(s): B02.9 - Zoster without complications Condition: Stable Prescriptions: New Valtrex 1 gram tablet 1,000 mg PO Q8H 7 Days Qty: 21 RF: 0 Zofran 4 mg tablet 4 mg PO Q4H PRN (Reason: Nausea And Vomiting) 7 Days Qty: 10 RF: 0 No Action thiamine HCl (vitamin B1) 100 mg tablet 100 mg PO DAILY 1 Days Qty: 1 RF: 0 amitriptyline 25 mg tablet 25 mg PO DAILY Qty: 30 RF: 4 cyanocobalamin (vitamin B-12) 1,000 mcg/mL solution 1,000 mcg SUBCUT .MONTHLY 30 Days Qty: 1 RF: 6 tizanidine 2 mg tablet 2 mg PO TID PRN (Reason: Spasms) RF: 0 Excedrin Extra Strength 250-250-65 mg Tablet 1 tab PO Q6H PRN (Reason: Pain) RF: 0 Discharge Orders: Discharge ED (Routine); Ordered 07/04/20 Ordered By: Sharla Wells Referrals: Braden Owen NP [Primary Care Provider] - Discharge Diet: Advance as tolerated and Clear Liquid Discharge Activity: Limit activity as instructed Patient Instructions: Herpes Zoster (ED), Migraine Headache (ED), Acute Nausea and Vomiting (ED) Activity Restrictions/Additional Instructions: Push fluids, drink lots of water/fluids to help with hydration. Use Zofran every 4 hours as needed for nausea. Rest at home today and tomorrow, follow-up with Dr. Mack for migraine headache Avoid exertional activity today and tomorrow Return to the emergency department if you develop the worst headache of your life, headache that does not follow character of your usual migraine, or other concerning symptoms such as weakness or continued vomiting despite use of Zofran. 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
[2020-07-04 17:14] VITALS: RESP 18; O2SAT 97
[2020-07-04] MEDS: ondansetron 2 mg/ML SDV 2 mL 4 MG IM (17:14)
[2020-07-04] MEDS: morphine 4 mg/mL SDV 1 mL IM (17:14)
== END 2020-07-04 17:43 | disposition home or self-care (01) ==
PROVIDERS: Emergency Provider Nurse Practitioner Family; PCP Nurse Practitioner Family
DX: G43.911 Migraine, unspecified, intractable, with status migrainosus (principal); B02.9 Zoster without complications; Z87.891 Personal history of nicotine dependence
CPT/HCPCS: 12345; 71045; 96372; 96375; 99281; 99283; J2270; J2405

== ENCOUNTER 2020-08-24 15:53 | Emergency (ER) | payer MEDICAID, SELFPAY ==
[2020-08-24 15:56] VITALS: BP 148/99; PULSE 92; RESP 16; TEMP 36.7; O2SAT 99; BMI 20.3
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
--- NOTE | 2020-08-24 16:19 | XR_ITS ---
WS: [id number] LUMBAR SPINE: 3 VIEWS TECHNIQUE: AP, lateral and L5-S1 spot. HISTORY: pain COMPARISON: 09/06/2019 Very slight LEFT curvature the lumbar spine. Diffuse osteopenia. No fractures. No loss of disc space or vertebral body height. SI joints are symmetric bilaterally. No soft tissue abnormalities. Numerous surgical clips at the GE junction, RIGHT upper quadrant and surgical sutures in the LEFT abd omen. Bilateral tubal ligation clips. XR/XR lumbar spine 2-3V* [id number] IMPRESSION: No acute fracture. Minimal LEFT curvature lumbar spine. Osteopenia.
[2020-08-24] MEDS: ondansetron 2 mg/ML SDV 2 mL 4 MG IM (16:34)
[2020-08-24 16:35] VITALS: RESP 20
[2020-08-24] MEDS: morphine 4 mg/mL SDV 1 mL IM (16:35)
[2020-08-24] MEDS: dexamethasone 10 mg/mL INJ 6 MG IM (16:37)
[2020-08-24 17:02] VITALS: BP 153/86; PULSE 92; RESP 17; O2SAT 99
== END 2020-08-24 17:07 | disposition home or self-care (01) ==
PROVIDERS: Emergency Provider Physician Assistant
DX: G89.29 Other chronic pain (principal); M54.5 Low back pain; Z87.891 Personal history of nicotine dependence
CPT/HCPCS: 12345; 72100; 96372; 99281; 99283; J1100; J2270; J2405

== ENCOUNTER 2020-09-21 16:23 | Emergency (ER) | payer MEDICAID, SELFPAY ==
[2020-09-21 16:32] VITALS: BP 122/63; PULSE 94; RESP 18; TEMP 36.7; O2SAT 94; BMI 20.7
--- NOTE | 2020-09-21 17:04 | XRR_ITS ---
PROCEDURE INFORMATION: Exam: XR Soft Tissue Neck Exam date and time: 09/21/2020 5:07 PM Age: 55 years old Clinical indication: Throat pain; Additional info: Pain, swelling TECHNIQUE: Imaging protocol: XR of the soft tissues of the neck. COMPARISON: No relevant prior studies available. FINDINGS: Airway: Normal. No abnormal narrowing. Soft tissues: Normal. Normal epiglottis. Bones/joints: Unremarkable. XR/XR soft tissue neck [id number] IMPRESSION: No acute findings.
--- NOTE | 2020-09-21 17:06 | W.ED.GENADLT ---
HPI - General Adult General: Chief complaint: General Medical Stated complaint: SORE THROAT Time Seen by Provider: 09/21/20 16:32 History of Present Illness: HPI narrative: Patient presents via ambulance with difficulty swallowing. Saw Dr. Wang on the eighth of this month is scheduled for an EGD possible dilatation. Patient relates that for the last 3 weeks difficult to swallow at times and hard time with liquids and solids. Denies reflux denies shortness of breath says it does hurt in her throat at times she said it feels like it swollen on the inside. complaint: Dysphagia Onset (ago): week(s) Location: neck Associated symptoms: Reports no associated symptoms; Deny chest pain, dyspnea, headache(s), nausea, rash or vomiting Review of Systems Const: Denies: fever(s), chills or body aches Eyes: Denies: change in vision or blurry vision ENMT: Denies: throat pain, uvular edema or nasal congestion Card: Denies: chest pain or dyspnea on exertion Resp: Denies: dyspnea, productive cough or non-productive cough GI: Reports: dysphagia and other; Denies: abdominal pain, nausea or vomiting Musc: Denies: extremity pain Skin/Breast: Denies: rash Neuro: Denies: headache(s) Psych: Denies: anxiety or depression Gigi/Lymph: Denies: easy bruising PFSH ED PFSH: Medical History (Updated 09/21/20 @ 18:22 by LIVAN Aleman) Chronic migraine without aura, intractable, with status migrainosus Emphysema of lung Surgical History (Updated 09/10/20 @ 13:51 by Santi Wang MD) H/O colonoscopy History of appendectomy History of cholecystectomy History of colon resection History of hysterectomy History of surgery ULCERS AND PART OF STOMACH REMOVED Social History Smoking and tobacco status: former smoker Alcohol intake: former Physical Exam Const: COMMON NORMALS: no acute distress, average body habitus and patient oriented x3 HENMT: COMMON NORMALS: normocephalic HEAD & SCALP: normal to inspection and normocephalic FACE & SINUS: normal facial exam THROAT: posterior oropharynx normal and tonsils normal; no peritonsillar mass, posterior oropharynx not abnormal, no postnasal drainage, uvula not laterally displaced and no uvular edema Eye: COMMON NORMALS: conjunctivae normal GENERAL EYE: appearance normal, both eyes and all related structures CONJUNCTIVA: Yes conjunctivae normal Neck/C-Spine: COMMON NORMALS: full ROM, no lymphadenopathy, no JVD and Thyroid normal GENERAL: Yes normal visual inspection THYROID: Thyroid normal CERVICAL SPINE: Yes cervical ROM normal Chest: COMMONS NORMALS: normal inspection of the chest Resp: COMMON NORMALS: normal respiratory effort and clear to auscultation bilaterally AUSCULTATION: clear to auscultation bilaterally Cardio: COMMON NORMALS: no JVD, regular rate and regular rhythm RATE: regular rate RHYTHM: regular rhythm GI: COMMON NORMALS: Normal to inspection, nondistended, normoactive bowel sounds present Extremity: COMMON NORMALS: normal to inspection and full ROM Neuro: COMMON NORMALS: patient oriented x3 Course Vital Signs: Vital signs: Vital Signs Temperature 98.0 F 09/21/20 16:32 Pulse Rate 88 09/21/20 18:45 Respiratory Rate 18 09/21/20 18:45 Blood Pressure 103/65 09/21/20 18:45 Pulse Oximetry 96 09/21/20 18:45 MDM - General Adult MDM Narrative: Medical decision making narrative: Patient complains of difficulty swallowing and talking due to throat swelling patient did talk to me low hushed tones but the nurse reported that she converse fully with her with no lessening of the speech. Presentation inconsistent. She did not take much a GI cocktail 1 more pain medicine and nervous and for her legs. Patient does have follow-up with Dr. Wang which I recommend she does stay away from foods that irritate her diet and to take the Prilosec. Differential Diagnosis: Differential Diagnosis: Pharyngitis, erosive esophagitis. Discharge Plan Discharge Patient Disposition: Home Clinical Impression: Dysphagia Qualifiers: Dysphagia type: other dysphagia Qualified Code(s): R13.19 - Other dysphagia Condition: Stable Prescriptions: New Prilosec OTC 20 mg tablet,delayed release (DR/EC) 20 mg PO DAILY Qty: 14 RF: 0 No Action multivitamin Tablet 1 tab PO DAILY RF: 0 sumatriptan succinate 100 mg tablet See Rx Instructions .ROUTE .COMPLEX RF: 0 levothyroxine 25 mcg tablet 25 mcg PO QAM RF: 0 meloxicam 7.5 mg tablet 7.5 mg PO DAILY RF: 0 fluticasone propionate 50 mcg/actuation spray,suspension 2 spray INTRANASAL DAILY RF: 0 ibandronate 150 mg tablet 150 mg PO Q30D RF: 0 amitriptyline 25 mg tablet 25 mg PO BEDTIME RF: 0 cyanocobalamin (vitamin B-12) 1,000 mcg/mL solution 1,000 mcg SUBCUT Q30D RF: 0 tizanidine 2 mg tablet 2 mg PO Q6H PRN (Reason: Spasms) RF: 0 Excedrin Extra Strength 250-250-65 mg Tablet 1 tab PO Q6H PRN (Reason: Pain) RF: 0 Discharge Orders: Discharge ED (Routine); Ordered 09/21/20 Ordered By: Jesse Herrera Referrals: Braden Owen NP [Primary Care Provider] - Discharge Diet: As Directed Discharge Activity: Resume usual activity Patient Instructions: Gastroesophageal Reflux Disease (ED), Opioid Safety Activity Restrictions/Additional Instructions: Follow-up with medical provider as directed. Take medications as prescribed. Return to the ER or your medical provider if condition worsens. Please read and understand discharge instructions. If any questions ask please. Contacted Dr. 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
[2020-09-21] MEDS: lidocaine 2% viscous 15 ML, aluminum-mag hydrox-simethicon 30 ML, sucralfate oral liq 1 GM PO (17:28)
--- NOTE | 2020-09-21 17:34 | CTR_ITS ---
PROCEDURE INFORMATION: Exam: CT Neck Without Contrast Exam date and time: 09/21/2020 5:57 PM Age: 55 years old Clinical indication: Dysphagia / difficulty swallowing; Patient HX: C/O sore throat- difficulty swallowing x 2 weeks. TECHNIQUE: Imaging protocol: Computed tomography images of the neck without contrast. Radiation optimization: All CT scans at this facility use at least one of these dose optimization techniques: automated exposure control; mA and/or kV adjustment per patient size (includes targeted exams where dose is matched to clinical indication); or iterative reconstruction. COMPARISON: CR XR soft tissue neck [id number] 09/21/2020 5:07 PM RADIATION DOSE METRICS: Total DLP (mGy-cm): 490.64 FINDINGS: Brain: Moderately atrophic brain parenchyma. Nasopharynx: Unremarkable. Dental: Patient is edentulous. Oropharynx: Unremarkable. No significant tonsillar enlargement. Hypopharynx: Unremarkable. Larynx: Unremarkable. Normal epiglottis. Retropharyngeal space: Unremarkable. Submandibular/Parotid glands: Normal. Glands are normal in size. Thyroid: Normal. No enlarged or calcified nodules. Lymph nodes: Unremarkable. No lymphadenopathy. Trachea: Visualized trachea is unremarkable. Lungs: Unremarkable as visualized. Bones/joints: No lytic bone lesion. No fractures. Smooth mild severity rightward convex scoliosis of midthoracic spine, incompletely assessed. Soft tissues: Unremarkable. No significant soft tissue swelling. CT/CT neck wo con [id number] IMPRESSION: 1. No soft tissue mass in the neck identified. 2. No soft tissue inflammatory change in the neck identified. Radiation Dose CTDIVOL = (mGy): DLP = 490.64 (mGy-cm)
[2020-09-21 18:45] VITALS: BP 103/65; PULSE 88; RESP 18; O2SAT 96
== END 2020-09-21 18:40 | disposition home or self-care (01) ==
PROVIDERS: Emergency Provider Nurse Practitioner Family; PCP Nurse Practitioner Family
DX: R13.19 Other dysphagia (principal); J43.9 Emphysema, unspecified; Z87.891 Personal history of nicotine dependence
CPT/HCPCS: 70360; 70490; 99283

== ENCOUNTER 2020-11-14 15:45 | Emergency (ER) | payer MEDICAID, SELFPAY ==
[2020-11-14 15:50] VITALS: BP 115/83; PULSE 100; RESP 18; TEMP 36.6; O2SAT 98; BMI 19.1
--- NOTE | 2020-11-14 16:12 | ED_ITS ---
HPI - General Adult General: Chief complaint: General Medical Stated complaint: HEADACHE, R RIB PAIN Time Seen by Provider: 11/14/20 16:09 History of Present Illness: HPI narrative: Patient complains of a rib pain after having a coughing fit this morning. Says it hurts on her right middle rib area from front to back. She says her cough is dry. Not had fever chills. Also has a headache which she said is same as the time she is been here before. Is not taking medication for either one of them. Denies any other injury. MD complaint: Rib pain and headache Onset (ago): hour(s) Location: chest Radiation: non-radiation Severity: mild Severity scale (1-10): 4 Quality: aching Pain Consistency: constant Relieving factors: immobilization Exacerbating factors: other (Cough) Associated symptoms: Reports no associated symptoms and headache(s); Deny chest pain, dyspnea, nausea, rash or vomiting Treatments prior to arrival: none Review of Systems Narrative: Rib pain after coughing Const: Denies: fever(s), chills or body aches Eyes: Denies: change in vision or blurry vision ENMT: Denies: throat pain or nasal congestion Card: Denies: chest pain or dyspnea on exertion Resp: Reports: non-productive cough; Denies: dyspnea or productive cough GI: Denies: abdominal pain, nausea or vomiting Musc: Denies: extremity pain Skin/Breast: Denies: rash Neuro: Reports: headache(s) Psych: Denies: anxiety or depression Gigi/Lymph: Denies: easy bruising PFSH ED PFSH: Medical History (Updated 11/14/20 @ 16:17 by LIVAN Aleman) Chronic migraine without aura, intractable, with status migrainosus Emphysema of lung Surgical History (Updated 09/10/20 @ 13:51 by Santi Wang MD) H/O colonoscopy History of appendectomy History of cholecystectomy History of colon resection History of hysterectomy History of surgery ULCERS AND PART OF STOMACH REMOVED Social History Smoking and tobacco status: former smoker Alcohol intake: former Physical Exam Const: COMMON NORMALS: no acute distress, average body habitus and patient oriented x3 HENMT: COMMON NORMALS: normocephalic HEAD & SCALP: normal to inspection and normocephalic FACE & SINUS: normal facial exam Eye: COMMON NORMALS: conjunctivae normal GENERAL EYE: appearance normal, both eyes and all related structures CONJUNCTIVA: Yes conjunctivae normal Neck/C-Spine: COMMON NORMALS: no JVD Chest: CHEST: Yes localized rib tenderness with anteroposterior compression Location: 6th rib and 7th rib Breast/axilla inspection: Yes no chest defor mity, asymmetry, normal contours, no nodules, masses, tenderness Resp: COMMON NORMALS: normal respiratory effort and clear to auscultation bilaterally AUSCULTATION: clear to auscultation bilaterally Cardio: COMMON NORMALS: no JVD, regular rate and regular rhythm RATE: regular rate RHYTHM: regular rhythm GI: COMMON NORMALS: Normal to inspection, nondistended, normoactive bowel sounds present Extremity: COMMON NORMALS: normal to inspection and full ROM Neuro: COMMON NORMALS: patient oriented x3 and CN's II-XII intact bilaterally Course Vital Signs: Vital signs: Vital Signs Temperature 97.9 F 11/14/20 15:50 Pulse Rate 93 11/14/20 16:43 Respiratory Rate 16 11/14/20 16:43 Blood Pressure 104/74 11/14/20 16:43 Pulse Oximetry 98 11/14/20 16:43 MDM - General Adult MDM Narrative: Medical decision making narrative: Patient requesting morphine for her discomfort.I do not feel morphine would be appropriate considering her level of pain. Ribs were not overly tender. Patient's headache started after her coughing started this morning. She denies any fever chills no productive cough no cough while here in the ER. Breathing normally move around the bed without any obvious discomfort. Will be discharged home with the continue present medication and if cough worsens follow-up with primary care provider. Discharge Plan Discharge Patient Disposition: Home Clinical Impression: Rib pain on right side Headache Qualifiers: Headache type: primary cough headache Qualified Code(s): G44.83 - Primary cough headache Condition: Stable Prescriptions: New Tessalon Perles 100 mg capsule 100 mg PO TID PRN (Reason: cough) Qty: 14 RF: 0 No Action multivitamin Tablet 1 tab PO DAILY RF: 0 sumatriptan succinate 100 mg tablet See Rx Instructions .ROUTE .COMPLEX RF: 0 levothyroxine 25 mcg tablet 25 mcg PO QAM RF: 0 meloxicam 7.5 mg tablet 7.5 mg PO DAILY RF: 0 fluticasone propionate 50 mcg/actuation spray,suspension 2 spray INTRANASAL DAILY RF: 0 ibandronate 150 mg tablet 150 mg PO Q30D RF: 0 amitriptyline 25 mg tablet 25 mg PO BEDTIME RF: 0 cyanocobalamin (vitamin B-12) 1,000 mcg/mL solution 1,000 mcg SUBCUT Q30D RF: 0 Prilosec OTC 20 mg tablet,delayed release (DR/EC) 20 mg PO DAILY Qty: 14 RF: 0 tizanidine 2 mg tablet 2 mg PO Q6H PRN (Reason: Spasms) RF: 0 Excedrin Extra Strength 250-250-65 mg Tablet 1 tab PO Q6H PRN (Reason: Pain) RF: 0 Discharge Orders: Discharge ED (Routine); Ordered 11/14/20 Ordered By: Jesse Herrera Referrals: Braden Owen NP [Primary Care Provider] - Discharge Diet: Usual diet Discharge Activity: Increase activity as tolerated Activity Restrictions/Additional Instructions: Follow-up with medical provider as directed. Take medications as prescribed. Return to the ER or your medical provider if condition worsens. Please read and understand discharge instructions. If any questions ask please. Coding Level of Care Code ED Paper Rewinder Operator for Storm Fwd Exam Comprehensive
--- NOTE | 2020-11-14 16:18 | XR_ITS ---
WS: [id number] Portable AP upright chest, 11/14/2020 Clinical Data: cough Comparison: Portable chest, 07/04/2020. Findings: No nodules, masses or effusions are seen. The heart is normal. The pulmonary vascularity is not increased. No pneumonia or pneumothorax is seen. Bilateral upper abdominal surgical clips are pr esent. XR/XR chest 1V portable [id number] Impression: Negative chest.
[2020-11-14 16:43] VITALS: BP 104/74; PULSE 93; RESP 16; O2SAT 98
[2020-11-14] MEDS: SUMAtriptan 6 mg/0.5 mL SDV SUBCUT (16:48)
[2020-11-14] MEDS: dexamethasone 10 mg/mL INJ IM (16:50)
[2020-11-14] MEDS: benzonatate 100 mg Capsule PO (16:52)
--- NOTE | 2020-11-14 17:32 | PC.NURSE ---
Read and agree with assessment.
== END 2020-11-14 17:20 | disposition home or self-care (01) ==
PROVIDERS: Emergency Provider Nurse Practitioner Family; PCP Nurse Practitioner Family
DX: R07.81 Pleurodynia (principal); G44.83 Primary cough headache; J43.9 Emphysema, unspecified; Z87.891 Personal history of nicotine dependence
CPT/HCPCS: 71045; 96372; 99283; J1100; J3030

== ENCOUNTER 2021-01-29 16:51 | Emergency (ER) | payer MEDICAID, SELFPAY ==
[2021-01-29 18:16] VITALS: BP 155/76; PULSE 97; RESP 19; TEMP 36.9; O2SAT 96; BMI 20.7
--- NOTE | 2021-01-29 19:48 | ED_ITS ---
HPI - Animal Bite General: Chief Complaint: Animal Bite Stated Complaint: cheek pain Time Seen by Provider: 01/29/21 19:48 History of Present Illness: HPI narrative: Patient is a 55-year-old female comes to the ED with left face pain and swelling. Patient says she went camping approximately 2 weeks ago and noticed that she started developing some pain and swelling of left cheek of face. She says it has continued to swell and get more painful and it has not improved. She denies any fever, trouble breathing or any airway obstruction. She has been taking Excedrin to help with pain. She rates her pain an 8 out of 10. Associated symptoms: Deny chills, fever(s) or headache(s) Review of Systems Const: Denies: fever(s), chills or fatigue Eyes: Denies: change in vision or eye discomfort ENMT: Reports: sinus pain (Left buccal pain and swelling.); Denies: throat pain, odynophagia, nasal discharge or nasal congestion Card: Denies: chest pain, palpitations, edema, swelling of feet/ankles, dyspnea on exertion or orthopnea Resp: Denies: dyspnea, productive cough or non-productive cough GI: Denies: abdominal pain, nausea, vomiting, diarrhea, constipation or hematochezia : Denies: flank pain, dysuria or hematuria Musc: Denies: neck pain, back pain or extremity swelling Skin/Breast: Denies: rash or new lesions Neuro: Denies: headache(s), numbness in extremities or weakness in extremities PFS ED PFSH: Medical History Chronic migraine without aura, intractable, with status migrainosus Emphysema of lung Surgical History H/O colonoscopy History of appendectomy History of cholecystectomy History of colon resection History of hysterectomy History of surgery ULCERS AND PART OF STOMACH REMOVED Social History Smoking and tobacco status: former smoker Alcohol intake: former Physical Exam Const: COMMON NORMALS: no acute distress, patient oriented x3 and alert GENERAL APPEARANCE: cooperative and comfortable HENMT: COMMON NORMALS: normocephalic HEAD & SCALP: normocephalic FACE & SINUS: edema on the left maxilla (Buccal), Facial tenderness on exam of face and sinuses on the left maxilla (buccal) and other (Warmth to left buccal region.) MOUTH: Normal oral and palatal mucosa present TEETH & GINGIVA: Yes other (Patient has all teeth pulled.) THROAT: posterior oropharynx normal and uvula midline OTHER: Patient has some tenderness, warmth and swelling to left buccal region. No erythema noted. Inside of cheek showed no acute exam findings. Exam findings suggestive of some developing cellulitis. Neck/C-Spine: COMMON NORMALS: supple GENERAL: Yes normal visual inspection Resp: COMMON NORMALS: normal respiratory effort, No retractions, No use of accessory muscles and clear to auscultation bilaterally AUSCULTATION: clear to auscultation bilaterally Cardio: COMMON NORMALS: regular rate, regular rhythm, S1 normal heart sound present, S2 normal heart sound present, No gallops present (Cardio), No clicks present (Cardio), No murmurs present (Cardio) and Peripheral pulses 2+ throughout RATE: regular rate RHYTHM: regular rhythm HEART SOUNDS: S1 normal heart sound present and S2 normal heart sound present PERIPHERAL PULSES: Peripheral pulses 2+ throughout GI: COMMON NORMALS: Normal to inspection, nondistended, normoactive bowel sounds present, Soft to palpation, non-tender and no masses PALPATION: Yes Soft to palpation : COMMON NORMALS: Yes no CVA tenderness BLADDER/KIDNEY EXAM: Yes no CVA tenderness Back/Pelvis: COMMON NORMALS: no CVA tenderness Extremity: COMMON NORMALS: normal to inspection Neuro: COMMON NORMALS: patient oriented x3 and moves all extremities SENSORIUM/ORIENTATION: Yes alert Skin: GENERAL SKIN EXAM: dry skin Course Vital Signs: Vital signs: Vital Signs Temperature 98.4 F 01/29/21 18:16 Pulse Rate 87 01/29/21 20:15 Respiratory Rate 16 01/29/21 20:15 Blood Pressure 151/60 01/29/21 20:15 Pulse Oximetry 97 01/29/21 20:15 MDM - Animal Bite MDM Narrative: Medical decision making narrative: Patient is a 55-year-old female comes to the ED with left facial pain and swelling. Exam findings are remarkable for left buccal region tenderness swelling and warmth. Findings suggestive of some cellulitis developing. Patient was discharged home with a prescription for Medrol Dosepak and clindamycin. Return to ED precautions gi jennifer. Follow-up with PCP in 7 to 10 days for reevaluation. Patient understood agree with plan. Discharge Plan Discharge Patient Disposition: Home Clinical Impression: Cellulitis of left internal cheek Condition: Stable Prescriptions: New clindamycin HCl 150 mg capsule 300 mg PO QID 7 Days Qty: 56 RF: 0 Medrol (Gera) 4 mg tablets,dose pack See Rx Instructions .ROUTE .COMPLEX Qty: 21 RF: 0 No Action cyanocobalamin (vitamin B-12) 1,000 mcg/mL solution 1,000 mcg SUBCUT Q30D Qty: 1 RF: 3 amitriptyline 25 mg tablet See Rx Instructions .ROUTE .COMPLEX Qty: 30 RF: 0 multivitamin Tablet 1 tab PO DAILY RF: 0 sumatriptan succinate 100 mg tablet See Rx Instructions .ROUTE .COMPLEX RF: 0 levothyroxine 25 mcg tablet 25 mcg PO QAM RF: 0 meloxicam 7.5 mg tablet 7.5 mg PO DAILY RF: 0 fluticasone propionate 50 mcg/actuation spray,suspension 2 spray INTRANASAL DAILY RF: 0 ibandronate 150 mg tablet 150 mg PO Q30D RF: 0 Prilosec OTC 20 mg tablet,delayed release (DR/EC) 20 mg PO DAILY Qty: 14 RF: 0 Tessalon Perles 100 mg capsule 100 mg PO TID PRN (Reason: cough) Qty: 14 RF: 0 tizanidine 2 mg tablet 2 mg PO Q6H PRN (Reason: Spasms) RF: 0 Excedrin Extra Strength 250-250-65 mg Tablet 1 tab PO Q6H PRN (Reason: Pain) RF: 0 Discharge Orders: Discharge ED (Routine); Ordered 01/29/21 Ordered By: Chon Bedoya Referrals: Braden Owen NP [Primary Care Provider] - Discharge Diet: Regular Discharge Activity: Resume usual activity Patient Instructions: Cellulitis (ED) Activity Restrictions/Additional Instructions: Follow-up with medical provider as directed in 7 days for reevaluation. Take medications as prescribed. Take [id number] Tylenol or Excedrin to help with pain. Return to the ER or your medical provider if condition worsens. Please read and understand discharge instructions. Thank you for choosing [facility] for your healthcare needs today. Please realize this is an emergency room and that we are providing you with a medical screening exam and this may not be complete and all inclusive of all the testing and or work up that you may need to determine your ailment or severity of your illness. It is very important that you follow up as instructed or that you return to the Emergency Department should you have concerns or if your condition changes or worsens in any way. Coding Level of Care Code ED Quality Head for Storm Fwd Exam Comprehensive
[2021-01-29] MEDS: clindamycin 150 mg Capsule 300 MG PO (20:14)
[2021-01-29] MEDS: HYDROcodone-acetaminophen 5-325 mg Tablet 1 TAB PO (20:14)
[2021-01-29] MEDS: dexamethasone 10 mg/mL INJ IM (20:14)
[2021-01-29 20:15] VITALS: BP 151/60; PULSE 87; RESP 16; O2SAT 97
== END 2021-01-29 20:16 | disposition home or self-care (01) ==
PROVIDERS: Emergency Provider Physician Assistant; PCP Nurse Practitioner Family
DX: K12.2 Cellulitis and abscess of mouth (principal); J43.9 Emphysema, unspecified; Z87.891 Personal history of nicotine dependence
CPT/HCPCS: 96372; 99283; J1100

== ENCOUNTER 2021-05-03 17:18 | Emergency (ER) | payer MEDICAID, SELFPAY ==
[2021-05-03 18:12] VITALS: BP 143/87; PULSE 100; RESP 18; TEMP 36.8; O2SAT 96; BMI 18.3
--- NOTE | 2021-05-03 18:25 | CTR_ITS ---
PROCEDURE INFORMATION: Exam: CT Head Without Contrast Exam date and time: 05/03/2021 6:25 PM Age: 56 years old Clinical indication: Pain; Headache not specified; Additional info: Weakness/headache/burst 2 days ago, nih 4 TECHNIQUE: Imaging protocol: Computed tomography of the head without contrast. Radiation optimization: All CT scans at this facility use at least one of these dose optimization techniques: automated exposure control; mA and/or kV adjustment per patient size (includes targeted exams where dose is matched to clinical indication); or iterative reconstruction. COMPARISON: MR head wo con* [id number] 07/04/2020 11:26 AM RADIATION DOSE METRICS: Total DLP (mGy-cm): 969.04 FINDINGS: Brain: No hemorrhage. No cerebral edema. Mild diffuse cerebral atrophy and sequela of chronic small vessel ischemic disease. No mass effect. Cerebral ventricles: No ventriculomegaly. Paranasal sinuses: Visualized sinuses are unremarkable. No fluid levels. Mastoid air cells: Visualized mastoid air cells are well aerated. Bones/joints: Unremarkable. No acute fracture. Soft tissues: Unremarkable. CT/CT head wo con* [id number] IMPRESSION: No acute intracranial abnormality. Radiation Dose CTDIVOL = (mGy): DLP = 969.04 (mGy-cm)
[2021-05-03 22:37] VITALS: BP 131/77; PULSE 110; RESP 18; O2SAT 92
[2021-05-03 23:08] VITALS: BP 153/105; PULSE 104; RESP 16; O2SAT 99
--- NOTE | 2021-05-03 23:56 | CTR_ITS ---
PROCEDURE INFORMATION: Exam: CT Angiography Head With Contrast, Arteriography Exam date and time: 05/03/2021 11:56 PM Age: 56 years old Clinical indication: Dizziness and giddiness and visual disturbance; Additional info: Headache, left sided vision change, dizzy TECHNIQUE: Imaging protocol: Computed tomography angiography of the head with contrast. Exam focused on the arteries. 3D rendering (Not supervised by radiologist): MIP and/or 3D reconstructed images were created by the technologist. Radiation optimization: All CT scans at this facility use at least one of these dose optimization techniques: automated exposure control; mA and/or kV adjustment per patient size (includes targeted exams where dose is matched to clinical indication); or iterative reconstruction. Contrast material: OMNI 350; Contrast volume: 75 ml; Contrast route: INTRAVENOUS (IV); COMPARISON: CT head wo con* [id number] 05/03/2021 7:16 PM RADIATION DOSE METRICS: Total DLP (mGy-cm): 1239.22 FINDINGS: ANTERIOR CIRCULATION: Right internal carotid artery: Unremarkable. Intracranial segment is patent with no significant stenosis. No aneurysm. Right middle cerebral artery: Unremarkable. No occlusion or significant stenosis. No aneurysm. Right anterior cerebral artery: Dominant left A1 segment with hypoplastic right A1 segment. Anterior communicating artery: Patent anterior communicating artery. Left internal carotid artery: Unremarkable. Intracranial segment is patent with no significant stenosis. No aneurysm. Left middle cerebral artery: Unremarkable. No occlusion or significant stenosis. No aneurysm. Left anterior cerebral artery: Unremarkable. No occlusion or significant stenosis. No aneurysm. POSTERIOR CIRCULATION: Right vertebral artery: Unremarkable. No occlusion or significant stenosis. No aneurysm. Left vertebral artery: Unremarkable. No occlusion or significant stenosis. No aneurysm. Basilar artery: Unremarkable. No occlusion or significant stenosis. No aneurysm. Right posterior cerebral artery: Unremarkable. No occlusion or significant stenosis. No aneurysm. Left posterior cerebral artery: Unremarkable. No occlusion or significant stenosis. No aneurysm. Other arteries: Small bilateral posterior communicating arteries. Brain: No definite mass, mass effect, or midline shift. Cerebral ventricles: No ventriculomegaly. Bones/joints: Unremarkable. No acute fracture. Soft tissues: Unremarkable. Other findings: No large vessel occlusion. IMPRESSION: No large vessel occlusion. PROCEDURE INFORMATION: Exam: CT Angiography Neck With Contrast Exam date and time: 05/03/2021 11:56 PM Age: 56 years old Clinical indication: Dizziness and giddiness and visual disturbance; Additional info: Headache, left sided vision change, dizzy TECHNIQUE: Imaging protocol: Computed tomography angiography of the neck with contrast. 3D rendering (Not supervised by radiologist): MIP and/or 3D reconstructed images were created by the technologist. Radiation optimization: All CT scans at this facility use at least one of these dose optimization techniques: automated exposure control; mA and/or kV adjustment per patient size (includes targeted exams where dose is matched to clinical indication); or iterative reconstruction. Contrast material: OMNI 350; Contrast volume: 75 ml; Contrast route: INTRAVENOUS (IV); COMPARISON: CT head wo con* [id number] 05/03/2021 7:16 PM RADIATION DOSE METRICS: Total DLP (mGy-cm): 1239.22 FINDINGS: Right common carotid artery: No stenosis. No dissection or occlusion. Right internal carotid artery: S-shaped tortuosity of the right cervical ICA without stenosis. No ICA stenosis by NASCET/SRU criteria. Right external carotid artery: No occlusion or stenosis of the origin. Left common carotid artery: No stenosis. No dissection or occlusion. Left internal carotid artery: No stenosis of the extracranial segment. No dissection or occlusion. Left external carotid artery: No occlusion or stenosis of the origin. Left callosomarginal artery: Mild to moderate multilevel spine degenerative changes including degenerative disc disease, spondylosis and facet degenerative changes. Right vertebral artery: No stenosis. No dissection or occlusion. Left vertebral artery: No stenosis. No dissection or occlusion. Other arteries: Codominant vertebral arteries. Soft tissues: Normal. No significant soft tissue swelling. Bones/joints: No acute fracture. CT/CT angio headneck* [id number] IMPRESSION: 1. Codominant vertebral arteries. 2. No ICA stenosis by NASCET/SRU criteria. REFERENCES: NASCET CRITERIA. The degree of internal carotid artery stenosis is based on NASCET criteria. Normal is no stenosis. Mild is less than 50% stenosis. Moderate is 50-69% stenosis. Severe is 70% to 99% stenosis. Total occlusion is no detectable patent lumen. Radiation Dose CTDIVOL = (mGy): DLP = 1239.22~1239.22 (mGy-cm)
--- NOTE | 2021-05-03 23:57 | ECG_ITS ---
[facility] Test Date: 2021-05-04 Pat Name: Radha Maguire Department: Room: Gender: Female Cinder Pitman: : 1965 Requested By: Stefan Givens Order Number: [id number] Emily MD: DILCIA DE LEON Measurements Intervals [place] Rate: 103 P: 71 [place]: 134 QRS: 76 QRSD: 93 T: 79 QT: 326 QTc: 429 Interpretive Statements SINUS TACHYCARDIA POSSIBLE LEFT ATRIAL ENLARGEMENT [-0.1mV P-WAVE IN V1/V2] INCOMPLETE RIGHT BUNDLE BRANCH BLOCK [90+ ms QRS DURATION, TERMINAL R IN V1/V2, 40+ ms S IN I/aVL/V4/V5/V6] ABNORMAL RHYTHM ECG Compared to ECG 01/20/2020 21:22:52 Sinus rhythm no longer present Short [place] interval no longer present Electronically Signed On 05-04-2021 18:23:39 CDT by DILCIA DE LEON [email or web address]
[2021-05-04 00:20] VITALS: RESP 16; O2SAT 97
[2021-05-04] MEDS: morphine 4 mg/mL SDV 1 mL IVP ×2 (00:20→01:26)
[2021-05-04] MEDS: ondansetron 2 mg/ML SDV 2 mL 4 MG IVP (00:21)
[2021-05-04] MEDS: sodium chloride 0.9% 1,000 ML 999 ML IV (00:26)
[2021-05-04 00:35] VITALS: BP 134/81; PULSE 96; RESP 18; O2SAT 97
[2021-05-04] MEDS: valproic acid inj 500 MG in sodium chloride 0.9% 50 ML 55 MG IV (00:40)
[2021-05-04 00:45] LABS: Basophils % 0.2 %; Eosinophils # 0.2 10^3/uL (0.0-0.8); Eosinophils % 3.4 %; Hematocrit 39.5 % (37.0-47.0); Lymphocytes # 1.8 10^3/uL (0.8-4.8); Lymphocytes % 29.5 %; Mean Corpuscular HGB Conc 32.9 g/dL (30.0-36.0); Mean Corpuscular Hemoglobin 29.5 pg (28.0-34.0); Mean Corpuscular Volume 89.6 fl (81-99); Mean Platelet Volume 10.2 fL (7.4-10.4); Monocytes # 0.6 10^3/uL (0.2-0.9); Monocytes % 9.7 %; Nucleated Red Blood Cells % 0 %; Platelet Count 180 10^3/cmm (130-400); Red Blood Count 4.41 10^6/uL (4.1-5.3); Red Cell Distribution Width 12.5 % (12.1-15.1)
[2021-05-04 01:03] LABS: Lactate (Lactic Acid level) 0.6 mmol/L (0.5-2.2)
[2021-05-04 01:04] LABS: Alanine Aminotransferase 8 U/L (0-33); Albumin Level 4.2 g/dL (3.5-5.2); Alkaline Phosphatase 86 IU/L (35-105); Anion Gap 15.2 (5-19); Aspartate Amino Transferase 13 U/L (0-32); Blood Urea Nitrogen 15 mg/dL (6-20); C Reactive Protein 0.3 mg/L (0.0-4.9); Carbon Dioxide 25 mmol/L (22-29); Chloride 102 mmol/L (98-107); Globulin 2.4 g/dL (1.3-4.6); Glomerular Filtration Rate 127.6 mL/min (90-130); Glucose 87 mg/dL (65-115); Osmolality Calculated 286 mOsm/kg (285-295); Potassium 4.2 mmol/L (3.5-5.1); Sodium 138 mmol/L (136-145); Total Bilirubin 0.3 mg/dL (0.15-1.2); Total Protein 6.6 g/dL (6.6-8.7)
[2021-05-04 01:09] VITALS: BP 123/99; PULSE 107; O2SAT 98
[2021-05-04 01:10] LABS: Procalcitonin 0.05 ng/mL (0-0.5)
[2021-05-04 01:26] VITALS: RESP 16; O2SAT 96
[2021-05-04 01:43] LABS: Add Urine Microscopic? YES; Bilirubin Urine Neg (Negative); Blood Urine 2+ (Negative); Glucose Urine UA Norm (Normal); Ketones Urine Negative (Negative); Leukocyte Esterase Urine Negative (Negative); Nitrate Urine Negative (Negative); Protein Urine Neg (Negative); Specific Gravity, Urine 1.005 (1.005-1.030); Urine Appearance Clear (CLEAR); Urine Color Yellow (Yellow); Urobilinogen Urine Norm (Negative); pH Urine 7 (5-7)
[2021-05-04 01:46] LABS: Add Urine Culture? No; Bacteria Urine TRACE /hpf; Squamous Epithelial Cell Urine 0-4 /hpf (0-5); WBC Urine 0-4 /hpf (0-5)
--- NOTE | 2021-05-04 02:07 | ED_ITS ---
HPI - Headache General: Chief Complaint: Headache Stated Complaint: HEADACHE Time Seen by Provider: 05/03/21 23:24 History of Present Illness: HPI Narrative: 56-year-old female who complains of 2 to 3 days of a headache, mainly to the left upper neck and left side of her head. She notes that she felt a sudden crack with pain to that area. She has a history of migraines, but notes that this is different than her normal migraine. She denies any fever. She does state that she has had some vision changes to her left eye, and she says some language problems. No significant weakness MD elicited complaint: headache Pertinent past history: migraines Onset (ago): day(s) Onset description: suddenly Location: left, frontal, temporal and occipital Severity: severe Quality & Timing: throbbing, sharp, progressively worsening and different than previous headaches Exacerbating factors: movement of head/neck Relieving factors: rest Context: occurred at rest Associated symptoms: Reports neck stiffness; Deny chest pain, confusion, cough, diaphoresis, eye pain, eye redness, fever(s), photophobia, seizures, short of breath, syncope, vomiting or weakness Treatments prior to arrival: migraine medication Review of Systems Const: Denies: fever(s) or diaphoresis Eyes: Reports: change in vision Card: Denies: chest pain, palpitations or syncope Resp: Denies: dyspnea, productive cough or non-productive cough GI: Denies: vomiting Neuro: Denies: confusion PFSH ED PFSH: Medical History Chronic migraine without aura, intractable, with status migrainosus Emphysema of lung Surgical History H/O colonoscopy History of appendectomy History of cholecystectomy History of colon resection History of hysterectomy History of surgery ULCERS AND PART OF STOMACH REMOVED Social History Smoking and tobacco status: former smoker Alcohol intake: former Physical Exam 2 Const: COMMON NORMALS: no acute distress, patient oriented x3 and alert HENMT: COMMON NORMALS: normocephalic HEAD & SCALP: normocephalic Eye: COMMON NORMALS: Equal, round and reactive pupils present and EOMs intact bilaterally PUPIL: Yes Equal, round and reactive pupils present DIRECT OPHTHALMOSCOPY: No photophobia Chest: COMMONS NORMALS: normal inspection of the chest Resp: COMMON NORMALS: normal respiratory effort, No use of accessory muscles and clear to auscultation bilaterally AUSCULTATION: clear to auscultation bilaterally Cardio: COMMON NORMALS: regular rate and regular rhythm RATE: regular rate RHYTHM: regular rhythm GI: COMMON NORMALS: Normal to inspection, nondistended, normoactive bowel sounds present and Soft to palpation PALPATION: Yes Soft to palpation Neuro: COMMON NORMALS: patient oriented x3 SENSORIUM/ORIENTATION: Yes alert Course Vital Signs: Vital signs: Vital Signs Temperature 98.2 F 05/03/21 18:12 Pulse Rate 100 05/04/21 02:26 Respiratory Rate 16 05/04/21 02:26 Blood Pressure 135/81 05/04/21 02:26 Pulse Oximetry 96 05/04/21 02:26 MDM - Headache MDM Narrative: Medical decision making narrative: Labs including inflammatory markers are normal. Head CT is negative. CT of the head is negative as well. No vertebral artery dissection. Headache is improved. She has no meningeal signs. She will be allowed home Lab Data: Labs: Lab Results 05/04/21 05/04/21 05/04/21 00:20 00:20 00:20 WBC 6.0 10^3/uL 10^3/ uL (4.0-10.0) RBC 4.41 10^6/uL 10^6 /uL (4.1-5.3) Hgb 13.0 g/dL g/dL (11.5-15.3) Hct 39.5 % % (37.0-47.0) MCV 89.6 fl fl (81-99) MCH 29.5 pg pg (28.0-34.0) MCHC 32.9 g/dL g/dL (30.0-36.0) RDW 12.5 % % (12.1-15.1) Plt Count 180 10^3/cmm 10^3 /cmm (130-400) MPV 10.2 fL fL (7.4-10.4) Neut % (Auto) 57.0 % % Lymph % (Auto) 29.5 % % Thurston % (Auto) 9.7 % % Eos % (Auto) 3.4 % % Baso % (Auto) 0.2 % % Neut # (Auto) 3.40 10^3/uL 10^3 /uL (1.8-7.7) Lymph # (Auto) 1.8 10^3/uL 10^3/ uL (0.8-4.8) Thurston # (Auto) 0.6 10^3/uL 10^3/ uL (0.2-0.9) Eos # (Auto) 0.2 10^3/uL 10^3/ uL (0.0-0.8) Baso # (Auto) 0.0 10^3/uL 10^3/ uL (0.0-0.1) Nucleated RBC % (a uto) 0 % % Nucleated RBCs # 0.0 /100WBC /100W BC Sodium 138 mmol/L mmol/L (136-145) Potassium 4.2 mmol/L mmol/L (3.5-5.1) Chloride 102 mmol/L mmol/L (98-107) Carbon Dioxide 25 mmol/L mmol/L (22-29) Anion Gap 15.2 (5-19) BUN 15 mg/dL mg/dL (6-20) Creatinine 0.5 mg/dL mg/dL (0.5-0.9) GFR Calculation 127.6 mL/min mL/m in (90-130) Glucose 87 mg/dL mg/dL (65-115) Calculated Osmolal ity 286 mOsm/kg mOsm/ kg (285-295) Lactate 0.6 mmol/L mmol/L (0.5-2.2) Calcium 9.0 mg/dL mg/dL (8.5-10.5) Total Bilirubin 0.3 mg/dL mg/dL (0.15-1.2) AST 13 U/L U/L (0-32) ALT 8 U/L U/L (0-33) Alkaline Phosphata se 86 IU/L IU/L (35-105) C-Reactive Protein 0.3 mg/L mg/L (0.0-4.9) Total Protein 6.6 g/dL g/dL (6.6-8.7) Albumin 4.2 g/dL g/dL (3.5-5.2) Globulin 2.4 g/dL g/dL (1.3-4.6) Procalcitonin 0.05 ng/mL ng/mL (0-0.5) Urine Color Urine Appearance Urine pH Ur Specific Gravit y Urine Protein Urine Glucose (UA) Urine Ketones Urine Blood Urine Nitrate Urine Bilirubin Urine Urobilinogen Ur Leukocyte Carmen ase Urine RBC Urine WBC Ur Squamous Epith Cells Amorphous Sediment Urine Bacteria 3 05/04/21 01:11 WBC RBC Hgb Hct MCV MCH MCHC RDW Plt Count MPV Neut % (Auto) Lymph % (Auto) Thurston % (Auto) Eos % (Auto) Baso % (Auto) Neut # (Auto) Lymph # (Auto) Thurston # (Auto) Eos # (Auto) Baso # (Auto) Nucleated RBC % (a uto) Nucleated RBCs # Sodium Potassium Chloride Carbon Dioxide Anion Gap BUN Creatinine GFR Calculation Glucose Calculated Osmolal ity Lactate Calcium Total Bilirubin AST ALT Alkaline Phosphata se C-Reactive Protein Total Protein Albumin Globulin Procalcitonin Urine Color Yellow (Yellow) Urine Appearance Clear (CLEAR) Urine pH 7 (5-7) Ur Specific Gravit y 1.005 (1.005-1.030) Urine Protein Neg (Negative) Urine Glucose (UA) Norm (Normal) Urine Ketones Negative (Negative) Urine Blood 2+ H (Negative) Urine Nitrate Negative (Negative) Urine Bilirubin Neg (Negative) Urine Urobilinogen Norm mg/dL mg/dL (Negative) Ur Leukocyte Carmen ase Negative (Negative) Urine RBC 5-10 /hpf H /hpf (0-2) Urine WBC 0-4 /hpf H /hpf (0-5) Ur Squamous Epith Cells 0-4 /hpf H /hpf (0-5) Amorphous Sediment Not Reportable Urine Bacteria Trace /hpf /hpf (NONE) Discharge Plan Discharge Patient Disposition: Home Clinical Impression: Headache Qualifiers: Headache type: unspecified Headache chronicity pattern: acute headache Intra ctability: intractable Qualified Code(s): R51.9 - Headache, unspecified Condition: Stable Prescriptions: No Action amitriptyline 25 mg tablet See Rx Instructions .ROUTE .COMPLEX Qty: 30 RF: 0 cyanocobalamin (vitamin B-12) 1,000 mcg/mL solution 1,000 mcg SUBCUT Q30D Qty: 1 RF: 0 multivitamin Tablet 1 tab PO DAILY RF: 0 sumatriptan succinate 100 mg tablet See Rx Instructions .ROUTE .COMPLEX RF: 0 levothyroxine 25 mcg tablet 25 mcg PO QAM RF: 0 meloxicam 7.5 mg tablet 7.5 mg PO DAILY RF: 0 fluticasone propionate 50 mcg/actuation spray,suspension 2 spray INTRANASAL DAILY RF: 0 ibandronate 150 mg tablet 150 mg PO Q30D RF: 0 Prilosec OTC 20 mg tablet,delayed release (DR/EC) 20 mg PO DAILY Qty: 14 RF: 0 Tessalon Perles 100 mg capsule 100 mg PO TID PRN (Reason: cough) Qty: 14 RF: 0 Medrol (Gera) 4 mg tablets,dose pack See Rx Instructions .ROUTE .COMPLEX Qty: 21 RF: 0 tizanidine 2 mg tablet 2 mg PO Q6H PRN (Reason: Spasms) RF: 0 Excedrin Extra Strength 250-250-65 mg Tablet 1 tab PO Q6H PRN (Reason: Pain) RF: 0 Discharge Orders: Discharge ED (Routine); Ordered 05/04/21 Ordered By: Stefan Bond Referrals: Braden Owen NP [Primary Care Provider] - 1-3 days Discharge Diet: Advance as tolerated Discharge Activity: Increase activity as tolerated Patient Instructions: General Headache (ED) Activity Restrictions/Additional Instructions: Return for fever greater than 100, worsening mental status changes, weakness to 1 side of the body, other concerning symptoms. Coding Level of Care Code ED [employer] for Maddyg Fwd Exam Detailed
[2021-05-04 02:25] VITALS: BP 135/81; PULSE 100; O2SAT 96
[2021-05-04 02:26] VITALS: BP 135/81; PULSE 100; RESP 16; O2SAT 96
== END 2021-05-04 02:28 | disposition home or self-care (01) ==
PROVIDERS: Emergency Provider Emergency Medicine; PCP Nurse Practitioner Family
DX: R51.9 Headache, unspecified (principal); J43.9 Emphysema, unspecified; Z87.891 Personal history of nicotine dependence
CPT/HCPCS: 70450; 70496; 70498; 80053; 81001; 83605; 84145; 85025; 86140; 93005; 96365; 96366; 96376; 99284; J2270; J2405; J7030; Q9967

== ENCOUNTER 2021-09-07 15:40 | Emergency (ER) | payer MEDICAID, SELFPAY ==
[2021-09-07 16:39] VITALS: BP 138/92; PULSE 113; RESP 18; TEMP 36.8; O2SAT 98
--- NOTE | 2021-09-07 18:02 | ED_ITS ---
Documented by User: LIVAN Saeed 09/07/21 20:16 HPI - COVID General: Chief Complaint: COVID symptoms Stated Complaint: N/V/D Time Seen by Provider: 09/07/21 18:02 Triage information: Has fever, cough or shortness of breath . No known COVID + exposure last 14 days History of Present Illness: 56-year-old female comes in today with complaints of illness since Thursday. Patient reports cough, nausea vomiting, and loose stools. Patient reports no known COVID-19 exposure. Patient is not vaccinated for Covid. Patient does have a history of COPD. Patient denies any routine medications. Patient had a history of surgery for ulcers, cholecystectomy, appendectomy, hysterectomy. Patient appears mildly unwell but not toxic. Patient is alert and appears in mild pain. Patient reports headache. COVID 19 common symptoms: positive body aches, headache(s), nausea and vomiting COVID Results: SARS-CoV-2 RNA (RT-PCR) Pending 09/07/21 21:59 09/07/21 Review of Systems Const: Reports: body aches and malaise GI: Reports: nausea and vomiting Neuro: Reports: headache(s) PFSH ED PFSH: Medical History Chronic migraine without aura, intractable, with status migrainosus Emphysema of lung Surgical History H/O colonoscopy History of appendectomy History of cholecystectomy History of colon resection History of hysterectomy History of surgery ULCERS AND PART OF STOMACH REMOVED Social History Smoking and tobacco status: former smoker Alcohol intake: former Physical Exam HENMT: COMMON NORMALS: normocephalic and TM's normal bilaterally HEAD & SCALP: normocephalic NOSE: No nasal discharge present TYMPANIC MEMBRANE: T M's normal bilaterally MOUTH: Normal oral and palatal mucosa present Neck/C-Spine: COMMON NORMALS: full ROM and no meningeal signs GENERAL: No lymphadenopathy Resp: COMMON NORMALS: normal respiratory effort AUSCULTATION: wheezes Cardio: COMMON NORMALS: regular rate and regular rhythm RATE: regular rate RHYTHM: regular rhythm GI: COMMON NORMALS: Soft to palpation and non-tender PALPATION: Yes Soft to palpation Extremity: COMMON NORMALS: normal to inspection and no pedal edema Neuro: MENINGEAL SIGNS: Yes no meningeal signs Psych: COMMON NORMALS: cooperative Skin: COMMON NORMALS: no rashes or lesions noted GENERAL SKIN EXAM: no rashes or lesions noted Course Vital Signs: Vital signs: Vital Signs Temperature 98.3 F 09/07/21 16:39 Pulse Rate 97 09/07/21 22:01 Respiratory Rate 16 09/07/21 22:01 Blood Pressure 115/74 09/07/21 22:01 Pulse Oximetry 99 09/07/21 22:01 [facility] - COVID Medical Decision Making 56-year-old female comes in today with complaints of nausea, headache, loose stools, body aches for 5 days. Patient states starting to get ill on Thursday. Exam notes lungs with some wheezes in the right base. Heart rates regular. Skin is warm and dry. No edema. Vital signs are normal. Differential diagnosis includes viral syndrome, COVID-19 infection, pneumonia. Laboratory values noted a mild leukopenia at 2.8, sodium is 138, potassium is 4.6, chest x- ray shows some haziness in the right lower lobe which might suggest a early pneumonitis or atelectasis. Recommend patient drink plenty of fluids, we will put her on some albuterol to make sure that she is aerating well. Patient was given a liter of IV fluids, Zofran and morphine for her headache, dexamethasone to prevent rebound headache. COVID-19 test was sent off to [facility] labs. Reviewed with patient my suspicion for COVID-19 with recommendations to isolate and follow-up as needed for worsening symptoms. Patient reported understanding and agreed to plan. Reviewed patient with Dr. Bond who agreed with plan. Lab Data : 09/07/21 18:53 09/07/21 18:53 Radiology Impressions Chest X-Ray 09/07/21 18:04 IMPRESSION: Negative chest. No acute pulmonary disease. Laboratory Results WBC 2.8 10^3/uL (4.0-10.0) L 09/07/21 18:53 RBC 5.07 10^6/uL (4.1-5.3) 09/07/21 18:53 Hgb 14.3 g/dL (11.5-15.3) 09/07/21 18:53 Hct 43.8 % (37.0-47.0) 09/07/21 18:53 MCV 86.4 fl (81-99) 09/07/21 18:53 MCH 28.2 pg (28.0-34.0) 09/07/21 18:53 MCHC 32.6 g/dL (30.0-36.0) 09/07/21 18:53 RDW 13.7 % (12.1-15.1) 09/07/21 18:53 Plt Count 149 10^3/cmm (130-400) 09/07/21 18:53 MPV 10.1 fL (7.4-10.4) 09/07/21 18:53 Neut % (Auto) 52.5 % 09/07/21 18:53 Lymph % (Auto) 33.2 % 09/07/21 18:53 Island % (Auto) 11.8 % 09/07/21 18:53 Eos % (Auto) 2.1 % 09/07/21 18:53 Baso % (Auto) 0.0 % 09/07/21 18:53 Neut # (Auto) 1.47 10^3/uL (1.8-7.7) L 09/07/21 18:53 Lymph # (Auto) 0.9 10^3/uL (0.8-4.8) 09/07/21 18:53 Island # (Auto) 0.3 10^3/uL (0.2-0.9) 09/07/21 18:53 Eos # (Auto) 0.1 10^3/uL (0.0-0.8) 09/07/21 18:53 Baso # (Auto) 0.0 10^3/uL (0.0-0.1) 09/07/21 18:53 Nucleated RBC % (auto) 0 % 09/07/21 18:53 Nucleated RBCs # 0.0 /100WBC 09/07/21 18:53 Sodium 138 mmol/L (136-145) 09/07/21 18:53 Potassium 4.6 mmol/L (3.5-5.1) 09/07/21 18:53 Chloride 103 mmol/L (98-107) 09/07/21 18:53 Carbon Dioxide 20 mmol/L (22-29) L 09/07/21 18:53 Anion Gap 19.6 (5-19) H 09/07/21 18:53 BUN 13 mg/dL (6-20) 09/07/21 18:53 Creatinine 0.6 mg/dL (0.5-0.9) 09/07/21 18:53 GFR Calculation 103.4 mL/min (90-130) 09/07/21 18:53 Glucose 93 mg/dL (65-115) 09/07/21 18:53 Calculated Osmolality 286 mOsm/kg (285-295) 09/07/21 18:53 Calcium 9.5 mg/dL (8.5-10.5) 09/07/21 18:53 Total Bilirubin 0.2 mg/dL (0.15-1.2) 09/07/21 18:53 AST 35 U/L (0-32) H 09/07/21 18:53 ALT 32 U/L (0-33) 09/07/21 18:53 Alkaline Phosphatase 116 IU/L (35-105) H 09/07/21 18:53 Total Protein 7.0 g/dL (6.6-8.7) 09/07/21 18:53 Albumin 4.5 g/dL (3.5-5.2) 09/07/21 18:53 Globulin 2.5 g/dL (1.3-4.6) 09/07/21 18:53 Lipase 20 U/L (13-60) 09/07/21 18:53 Lipase Cancelled 09/07/21 18:53 SARS-CoV-2 RNA (RT-PCR) Pending 09/07/21 21:59 09/07/21 Discharge Plan Discharge Patient Disposition: Home Clinical Impression: Viral syndrome, Suspected severe acute respiratory syndrome coronavirus 2 (SARS-CoV-2) infection Headache Qualifiers: Headache type: unspecified Headache chronicity pattern: acute headache Intractability: not intractable Qualified Code(s): R51.9 - Headache, unspecified Condition: Stable Prescriptions: New ondansetron 4 mg tablet,disintegrating 4 mg PO Q8H PRN (Reason: nausea and vomiting) Qty: 10 0RF albuterol sulfate 90 mcg/actuation HFA aerosol inhaler 2 inh inhalation Q4H PRN (Reason: shortness of breath or wheezing) Qty: 8.5 0RF No Action amitriptyline 25 mg tablet See Rx Instructions .ROUTE .COMPLEX Qty: 30 0RF Dose Instruction: TAKE 1 TABLET BY MOUTH EVERY DAY Rx Instructions: TAKE 1 TABLET BY MOUTH EVERY DAY cyanocobalamin (vitamin B-12) 1,000 mcg/mL solution 1,000 mcg SUBCUT Q30D Qty: 1 0RF multivitamin Tablet 1 tab PO DAILY 0RF sumatriptan succinate 100 mg tablet See Rx Instructions .ROUTE .COMPLEX 0RF Rx Instructions: DIRECTED PRN levothyroxine 25 mcg tablet 25 mcg PO QAM 0RF meloxicam 7.5 mg tablet 7.5 mg PO DAILY 0RF fluticasone propionate 50 mcg/actuation spray,suspension 2 spray INTRANASAL DAILY 0RF ibandronate 150 mg tablet 150 mg PO Q30D 0RF Prilosec OTC 20 mg tablet,delayed release (DR/EC) 20 mg PO DAILY Qty: 14 0RF Tessalon Perles 100 mg capsule 100 mg PO TID PRN (Reason: cough) Qty: 14 0RF Medrol (Gera) 4 mg tablets,dose pack See Rx Instructions .ROUTE .COMPLEX Qty: 21 0RF Rx Instructions: orally per package directions tizanidine 2 mg tablet 2 mg PO Q6H PRN (Reason: Spasms) 0RF Excedrin Extra Strength 250-250-65 mg Tablet 1 tab PO Q6H PRN (Reason: Pain) 0RF Discharge Orders: Discharge ED (Routine); Ordered 09/07/21 Ordered By: Miguel Hobbs Referrals: Braden Owen NP [Primary Care Provider] - Discharge Diet: Usual diet Discharge Activity: Increase activity as tolerated Patient Instructions: Viral Syndrome (ED), Opioid Safety Activity Restrictions/Additional Instructions: Home and rest. Drink plenty of fluids. Use medications as directed. Use ondansetron 3 times a day for nausea. Use acetaminophen or ibuprofen for pain and fever. It is important to stay well-hydrated and drink plenty of water. Use albuterol inhaler as needed for cough, congestion, or shortness of breath. Return to the ER for worsening shortness of breath, chest pain, or new concerns. Wear your mask and isolate from others to protect your neighbors and public. Coding Level of Care Code ED Divine Healer for g Fwd Exam Comprehensive Medical Decision Making Moderate Complexity Time Spent (min) 45 Documented by User: Stefan Bond, 09/08/21 01:53 HPI - COVID General: Chief Complaint: COVID symptoms Stated Complaint: N/V/D Time Seen by Provider: 09/07/21 18:02 COVID Results: SARS-CoV-2 RNA (RT-PCR) Pending 09/07/21 21:59 09/07/21 [facility] ED PFSH: Medical History Chronic migraine without aura, intractable, with status migrainosus Emphysema of lung Surgical History H/O colonoscopy History of appendectomy History of cholecystectomy History of colon resection History of hysterectomy History of surgery ULCERS AND PART OF STOMACH REMOVED Social History Smoking and tobacco status: former smoker Alcohol intake: former Course Vital Signs: Vital signs: Vital Signs Temperature 98.3 F 09/07/21 16:39 Pulse Rate 97 09/07/21 22:01 Respiratory Rate 16 09/07/21 22:01 Blood Pressure 115/74 09/07/21 22:01 Pulse Oximetry 99 09/07/21 22:01 MDM - COVID Medical Decision Making 56-year-old female comes in today with complaints of nausea, headache, loose stools, body aches for 5 days. Patient states starting to get ill on Thursday. Exam notes lungs with some wheezes in the right base. Heart rates regular. Skin is warm and dry. No edema. Vital signs are normal. Differential diagnosis includes viral syndrome, COVID-19 infection, pneumonia. Laboratory values noted a mild leukopenia at 2.8, sodium is 138, potassium is 4.6, chest x- ray shows some haziness in the right lower lobe which might suggest a early pneumonitis or atelectasis. Recommend patient drink plenty of fluids, we will put her on some albuterol to make sure that she is aerating well. Patient was given a liter of IV fluids, Zofran and morphine for her headache, dexamethasone to prevent rebound headache. COVID-19 test was sent off to [facility] labs. Reviewed with patient my suspicion for COVID-19 with recommendations to isolate and follow-up as needed for worsening symptoms. Patient reported understanding and agreed to plan. Reviewed patient with Dr. Bond who agreed with plan. This patient was originally seen by LIVAN Damico.? I agree with his history, evaluation, and treatment. Lab Data : 09/07/21 18:53 09/07/21 18:53 Radiology Impressions Chest X-Ray 09/07/21 18:04 IMPRESSION: Negative chest. No acute pulmonary disease. Laboratory Results WBC 2.8 10^3/uL (4.0-10.0) L 09/07/21 18:53 RBC 5.07 10^6/uL (4.1-5.3) 09/07/21 18:53 Hgb 14.3 g/dL (11.5-15.3) 09/07/21 18:53 Hct 43.8 % (37.0-47.0) 09/07/21 18:53 MCV 86.4 fl (81-99) 09/07/21 18:53 MCH 28.2 pg (28.0-34.0) 09/07/21 18:53 MCHC 32.6 g/dL (30.0-36.0) 09/07/21 18:53 RDW 13.7 % (12.1-15.1) 09/07/21 18:53 Plt Count 149 10^3/cmm (130-400) 09/07/21 18:53 MPV 10.1 fL (7.4-10.4) 09/07/21 18:53 Neut % (Auto) 52.5 % 09/07/21 18:53 Lymph % (Auto) 33.2 % 09/07/21 18:53 Island % (Auto) 11.8 % 09/07/21 18:53 Eos % (Auto) 2.1 % 09/07/21 18:53 Baso % (Auto) 0.0 % 09/07/21 18:53 Neut # (Auto) 1.47 10^3/uL (1.8-7.7) L 09/07/21 18:53 Lymph # (Auto) 0.9 10^3/uL (0.8-4.8) 09/07/21 18:53 Island # (Auto) 0.3 10^3/uL (0.2-0.9) 09/07/21 18:53 Eos # (Auto) 0.1 10^3/uL (0.0-0.8) 09/07/21 18:53 Baso # (Auto) 0.0 10^3/uL (0.0-0.1) 09/07/21 18:53 Nucleated RBC % (auto) 0 % 09/07/21 18:53 Nucleated RBCs # 0.0 /100WBC 09/07/21 18:53 Sodium 138 mmol/L (136-145) 09/07/21 18:53 Potassium 4.6 mmol/L (3.5-5.1) 09/07/21 18:53 Chloride 103 mmol/L (98-107) 09/07/21 18:53 Carbon Dioxide 20 mmol/L (22-29) L 09/07/21 18:53 Anion Gap 19.6 (5-19) H 09/07/21 18:53 BUN 13 mg/dL (6-20) 09/07/21 18:53 Creatinine 0.6 mg/dL (0.5-0.9) 09/07/21 18:53 GFR Calculation 103.4 mL/min (90-130) 09/07/21 18:53 Glucose 93 mg/dL (65-115) 09/07/21 18:53 Calculated Osmolality 286 mOsm/kg (285-295) 09/07/21 18:53 Calcium 9.5 mg/dL (8.5-10.5) 09/07/21 18:53 Total Bilirubin 0.2 mg/dL (0.15-1.2) 09/07/21 18:53 AST 35 U/L (0-32) H 09/07/21 18:53 ALT 32 U/L (0-33) 09/07/21 18:53 Alkaline Phosphatase 116 IU/L (35-105) H 09/07/21 18:53 Total Protein 7.0 g/dL (6.6-8.7) 09/07/21 18:53 Albumin 4.5 g/dL (3.5-5.2) 09/07/21 18:53 Globulin 2.5 g/dL (1.3-4.6) 09/07/21 18:53 Lipase 20 U/L (13-60) 09/07/21 18:53 Lipase Cancelled 09/07/21 18:53 SARS-CoV-2 RNA (RT-PCR) Pending 09/07/21 21:59 09/07/21 Discharge Plan Discharge Patient Disposition: Home Clinical Impression: Viral syndrome, Suspected severe acute respiratory syndrome coronavirus 2 (SARS-CoV-2) infection Headache Qualifiers: Headache type: unspecified Headache chronicity pattern: acute headache Intractability: not intractable Qualified Code(s): R51.9 - Headache, unspecified Condition: Stable Prescriptions: New ondansetron 4 mg tablet,disintegrating 4 mg PO Q8H PRN (Reason: nausea and vomiting) Qty: 10 0RF albuterol sulfate 90 mcg/actuation HFA aerosol inhaler 2 inh inhalation Q4H PRN (Reason: shortness of breath or wheezing) Qty: 8.5 0RF No Action amitriptyline 25 mg tablet See Rx Instructions .ROUTE .COMPLEX Qty: 30 0RF Dose Instruction: TAKE 1 TABLET BY MOUTH EVERY DAY Rx Instructions: TAKE 1 TABLET BY MOUTH EVERY DAY cyanocobalamin (vitamin B-12) 1,000 mcg/mL solution 1,000 mcg SUBCUT Q30D Qty: 1 0RF multivitamin Tablet 1 tab PO DAILY 0RF sumatriptan succinate 100 mg tablet See Rx Instructions .ROUTE .COMPLEX 0RF Rx Instructions: DIRECTED PRN levothyroxine 25 mcg tablet 25 mcg PO QAM 0RF meloxicam 7.5 mg tablet 7.5 mg PO DAILY 0RF fluticasone propionate 50 mcg/actuation spray,suspension 2 spray INTRANASAL DAILY 0RF ibandronate 150 mg tablet 150 mg PO Q30D 0RF Prilosec OTC 20 mg tablet,delayed release (DR/EC) 20 mg PO DAILY Qty: 14 0RF Tessalon Perles 100 mg capsule 100 mg PO TID PRN (Reason: cough) Qty: 14 0RF Medrol (Gera) 4 mg tablets,dose pack See Rx Instructions .ROUTE .COMPLEX Qty: 21 0RF Rx Instructions: orally per package directions tizanidine 2 mg tablet 2 mg PO Q6H PRN (Reason: Spasms) 0RF Excedrin Extra Strength 250-250-65 mg Tablet 1 tab PO Q6H PRN (Reason: Pain) 0RF Discharge Orders: Discharge ED (Routine); Ordered 09/07/21 Ordered By: Miguel Hobbs Referrals: Braden Owen NP [Primary Care Provider] - Discharge Diet: Usual diet Discharge Activity: Increase activity as tolerated Patient Instructions: Viral Syndrome (ED), Opioid Safety Activity Restrictions/Additional Instructions: Home and rest. Drink plenty of fluids. Use medications as directed. Use ondansetron 3 times a day for nausea. Use acetaminophen or ibuprofen for pain and fever. It is important to stay well-hydrated and drink plenty of water. Use albuterol inhaler as needed for cough, congestion, or shortness of breath. Return to the ER for worsening shortness of breath, chest pain, or new concerns. Wear your mask and isolate from others to protect your neighbors and public. Coding Level of Care Code ED Divine Healer for Maddyg Fwd Exam Comprehensive Medical Decision Making Moderate Complexity Time Spent (min) 45
--- NOTE | 2021-09-07 18:04 | XRR_ITS ---
PROCEDURE INFORMATION: Exam: XR Chest Exam date and time: 09/07/2021 6:04 PM Age: 56 years old Clinical indication: Cough and fever; Additional info: Cough, fever TECHNIQUE: Imaging protocol: XR of the chest. Views: 1 view. COMPARISON: CR XR chest 1V portable [id number] 11/14/2020 4:25 PM FINDINGS: Lungs: Emphysematous changes. Negative for consolidation. Pleural spaces: Unremarkable. No pleural effusion. No pneumothorax. Heart/Mediastinum: Unremarkable. No cardiomegaly. Bones/joints: Unremarkable. XR/XR chest 1V portable [id number] IMPRESSION: Negative chest. No acute pulmonary disease.
[2021-09-07 18:49] VITALS: BP 129/93; PULSE 104; RESP 16; O2SAT 99
[2021-09-07] MEDS: sodium chloride 0.9% 1,000 ML 999 ML IV (18:51)
[2021-09-07] MEDS: ondansetron 2 mg/ML SDV 2 mL 4 MG IVP (18:51)
[2021-09-07 19:06] LABS: Eosinophils # 0.1 10^3/uL (0.0-0.8); Eosinophils % 2.1 %; Hematocrit 43.8 % (37.0-47.0); Hemoglobin 14.3 g/dL (11.5-15.3); Lymphocytes # 0.9 10^3/uL (0.8-4.8); Lymphocytes % 33.2 %; Mean Corpuscular HGB Conc 32.6 g/dL (30.0-36.0); Mean Corpuscular Hemoglobin 28.2 pg (28.0-34.0); Mean Corpuscular Volume 86.4 fl (81-99); Mean Platelet Volume 10.1 fL (7.4-10.4); Monocytes # 0.3 10^3/uL (0.2-0.9); Monocytes % 11.8 %; Neutrophils # 1.47 10^3/uL (1.8-7.7); Neutrophils % 52.5 %; Nucleated Red Blood Cells % 0 %; Platelet Count 149 10^3/cmm (130-400); Red Blood Count 5.07 10^6/uL (4.1-5.3); Red Cell Distribution Width 13.7 % (12.1-15.1); White Blood Count 2.8 10^3/uL (4.0-10.0)
[2021-09-07 19:24] LABS: Alanine Aminotransferase 32 U/L (0-33); Albumin Level 4.5 g/dL (3.5-5.2); Alkaline Phosphatase 116 IU/L (35-105); Aspartate Amino Transferase 35 U/L (0-32); Blood Urea Nitrogen 13 mg/dL (6-20); Calcium 9.5 mg/dL (8.5-10.5); Carbon Dioxide 20 mmol/L (22-29); Chloride 103 mmol/L (98-107); Globulin 2.5 g/dL (1.3-4.6); Glomerular Filtration Rate 103.4 mL/min (90-130); Glucose 93 mg/dL (65-115); Lipase 20 U/L (13-60); Osmolality Calculated 286 mOsm/kg (285-295); Sodium 138 mmol/L (136-145); Total Bilirubin 0.2 mg/dL (0.15-1.2)
[2021-09-07 19:42] LABS: Anion Gap 19.6 (5-19); Potassium 4.6 mmol/L (3.5-5.1)
[2021-09-07 22:01] VITALS: BP 115/74; PULSE 97; RESP 16; O2SAT 99
[2021-09-09 17:03] LABS: Quest SARS-CoV-2 RNA NOT DETECTED (NOT DETECTED)
--- NOTE | 2021-09-11 15:49 | PC.NURSE ---
Notified of Negative COVID test
== END 2021-09-07 22:02 | disposition home or self-care (01) ==
PROVIDERS: Emergency Medicine; Emergency Provider Nurse Practitioner Family; PCP Nurse Practitioner Family
DX: B34.9 Viral infection, unspecified (principal); Z20.822 Contact with and (suspected) exposure to COVID-19; R51.9 Headache, unspecified; J43.9 Emphysema, unspecified; Z87.891 Personal history of nicotine dependence
CPT/HCPCS: 71045; 80053; 83690; 85025; 87635; 96361; 96374; 99284; J2405; J7030

== ENCOUNTER 2021-12-04 15:14 | Emergency (ER) | payer MEDICAID, SELFPAY ==
[2021-12-04 15:19] VITALS: BP 139/94; PULSE 92; RESP 25; O2SAT 100; BMI 18.3
[2021-12-04 15:27] VITALS: O2SAT 96
--- NOTE | 2021-12-04 15:41 | XRR_ITS ---
PROCEDURE INFORMATION: Exam: XR Chest Exam date and time: 12/04/2021 4:14 PM Age: 56 years old Clinical indication: Pain; Angina pectoris; Additional info: Chest pain TECHNIQUE: Imaging protocol: XR of the chest. Views: 1 view. COMPARISON: CR XR chest 1V portable [id number] 09/07/2021 6:56 PM FINDINGS: Lungs: Hyperinflated lungs, likely emphysema. The lungs are clear. No consolidation. Pleural spaces: Unremarkable. No pleural effusion. No pneumothorax. Heart/Mediastinum: Unremarkable. No cardiomegaly. Bones/joints: Unremarkable. Intraperitoneal space: Surgical clips in the upper abdomen. XR/XR chest 1V portable [id number] IMPRESSION: No acute findings.
--- NOTE | 2021-12-04 15:41 | ECG_ITS ---
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 Measurements Intervals [place] Rate: 98 P: 121 NH: 117 QRS: 157 QRSD: 84 T: 151 QT: 327 QTc: 419 Interpretive Statements ECTOPIC ATRIAL RHYTHM WITH SHORT NH INTERVAL POSSIBLE LEFT ATRIAL ENLARGEMENT [-0.1mV P-WAVE IN V1/V2] POSSIBLE RIGHT VENTRICULAR HYPERTROPHY [SOME/ALL OF: PROMINENT R IN V1, LATE TRANSITION, RAD, VANESSA, SSS] Compared to ECG 05/04/2021 01:01:38 Ectopic atrial rhythm now present Short NH interval now present Sinus tachycardia no longer present Incomplete right bundle-branch block no longer present Electronically Signed On 12-04-2021 19:47:55 CDT by Shahnaz Stone M.D. [id number]
--- NOTE | 2021-12-04 16:13 | ED_ITS ---
Documented by User: Narendra Graham DO 12/05/21 07:59 HPI - Chest Pain General: Chief Complaint: Chest Pain Stated Complaint: CHEST PAIN Time Seen by Provider: 12/04/21 15:41 Source: patient Mode of arrival: ambulatory Limitations: no limitations History of Present Illness: 56-year-old female presents emergency room complaining of chest pain. She had nausea vomiting for the last week chest pain worse with movement worse with palpation and deep inspiration center left side of sternum midportion. She has not had any pain rating to her neck or arms or back. She has no known history of coronary artery disease. No dysuria urgency frequency cough shortness of breath no abdominal pain. Patient is not diabetic she was previously had significant liver disease but evidently this has mostly resolved she is a former heavy drinker she has stopped drinking as well. MD complaint: chest discomfort Onset (ago): week(s) (1) Timing of current episode: episodic Prior episodes: Yes Onset: during rest Pain location: left chest Pain radiation: none Severity: moderate Quality: aching and heaviness Relieving factors: nothing Exacerbating factors: nothing Associated symptoms: Reports sense of impending doom; Deny abdominal pain, diaphoresis, dyspnea, fever(s), leg edema, nausea, palpitations, syncope or vomiting Treatment prior to arrival: none Review of Systems Const: Denies: fever(s), chills, body aches, change in appetite, fatigue, malaise or diaphoresis ENMT: Denies: throat pain, ear or mastoid pain, nasal discharge or nasal congestion Card: Denies: chest pain, palpitations, edema, syncope, dyspnea on exertion or orthopnea Resp: Denies: dyspnea, productive cough or non-productive cough GI: Denies: abdominal pain, nausea, vomiting, hematemesis, coffee ground emesis, diarrhea, constipation, bloating, hematochezia or melena : Denies: flank pain, difficulty voiding, dysuria, urinary frequency or urinary urgency Skin/Breast: Denies: rash or pruritus PFSH ED PFSH: Medical History Chronic migraine without aura, intractable, with status migrainosus Emphysema of lung Surgical History H/O colonoscopy History of appendectomy History of cholecystectomy History of colon resection History of hysterectomy History of surgery ULCERS AND PART OF STOMACH REMOVED Social History Smoking and tobacco status: former smoker Alcohol intake: former Physical Exam Const: COMMON NORMALS: no acute distress GENERAL APPEARANCE: cooperative and comfortable ORIENTATION/CONSCIOUSNESS: Yes awake, Yes oriented to person, Yes oriented to place and Yes oriented to time HENMT: COMMON NORMALS: normocephalic, atraumatic and hearing grossly normal bilaterally HEAD & SCALP: normocephalic and atraumatic Neck/C-Spine: COMMON NORMALS: no JVD Resp: COMMON NORMALS: normal respiratory effort, No retractions, No use of accessory muscles and clear to auscultation bilaterally AUSCULTATION: clear to auscultation bilaterally Cardio: COMMON NORMALS: no JVD, regular rate, regular rhythm and No murmurs present (Cardio) RATE: regular rate RHYTHM: regular rhythm GI: COMMON NORMALS: Soft to palpation and No hepatosplenomegaly present AUSCULTATION: Yes normoactive bowel sounds PALPATION: Yes Soft to palpation, No Tenderness to palpation present (GI), No Guarding due to palpation present (GI) and Yes No hepatosplenomegaly present Extremity: COMMON NORMALS: normal to inspection, capillary refill normal, no clubbing, cyanosis or edema, no calf tenderness and no pedal edema Neuro: SENSORIUM/ORIENTATION: Yes oriented to person, Yes oriented to place and Yes oriented to time Skin: COMMON NORMALS: no rashes or lesions noted GENERAL SKIN EXAM: no rashes or lesions noted Course Vital Signs: Vital signs: Vital Signs Pulse Rate 91 12/04/21 19:40 Respiratory Rate 25 H 12/04/21 15:19 Blood Pressure 119/92 12/04/21 19:40 Pulse Oximetry 98 12/04/21 19:40 MDM - Chest Pain Medical Decision Making Care signed out to Dr. Triplett at change of shift. See final notes for diagnosis and disposition. Patient presents here with chest pains atypical in nature initial repeat troponins are negative patient is well-appearing here and is stable for discharge she is to follow-up with PCP and return if worsening she understands agrees to plan. Lab Data : 12/04/21 16:04 12/04/21 16:04 Radiology Impressions Chest X-Ray 12/04/21 15:41 IMPRESSION: No acute findings. Laboratory Results WBC 4.6 10^3/uL (4.0-10.0) 12/04/21 16:04 RBC 5.18 10^6/uL (4.1-5.3) 12/04/21 16:04 Hgb 14.8 g/dL (11.5-15.3) 12/04/21 16:04 Hct 44.6 % (37.0-47.0) 12/04/21 16:04 MCV 86.1 fl (81-99) 12/04/21 16:04 MCH 28.6 pg (28.0-34.0) 12/04/21 16:04 MCHC 33.2 g/dL (30.0-36.0) 12/04/21 16:04 RDW 13.2 % (12.1-15.1) 12/04/21 16:04 Plt Count 206 10^3/cmm (130-400) 12/04/21 16:04 MPV 10.4 fL (7.4-10.4) 12/04/21 16:04 Neut % (Auto) 61.2 % 12/04/21 16:04 Lymph % (Auto) 28.6 % 12/04/21 16:04 Cavalier % (Auto) 6.5 % 12/04/21 16:04 Eos % (Auto) 3.3 % 12/04/21 16:04 Baso % (Auto) 0.2 % 12/04/21 16:04 Neut # (Auto) 2.82 10^3/uL (1.8-7.7) 12/04/21 16:04 Lymph # (Auto) 1.3 10^3/uL (0.8-4.8) 12/04/21 16:04 Cavalier # (Auto) 0.3 10^3/uL (0.2-0.9) 12/04/21 16:04 Eos # (Auto) 0.2 10^3/uL (0.0-0.8) 12/04/21 16:04 Baso # (Auto) 0.0 10^3/uL (0.0-0.1) 12/04/21 16:04 Nucleated RBC % (auto) 0 % 12/04/21 16:04 Nucleated RBCs # 0.0 /100WBC 12/04/21 16:04 Sodium 139 mmol/L (136-145) 12/04/21 16:04 Potassium 4.3 mmol/L (3.5-5.1) 12/04/21 16:04 Chloride 102 mmol/L (98-107) 12/04/21 16:04 Carbon Dioxide 25 mmol/L (22-29) 12/04/21 16:04 Anion Gap 16.3 (5-19) 12/04/21 16:04 BUN 15 mg/dL (6-20) 12/04/21 16:04 Creatinine 0.6 mg/dL (0.5-0.9) 12/04/21 16:04 GFR Calculation 103.4 mL/min (90-130) 12/04/21 16:04 Glucose 93 mg/dL (65-115) 12/04/21 16:04 Calculated Osmolality 289 mOsm/kg (285-295) 12/04/21 16:04 Calcium 10.1 mg/dL (8.5-10.5) 12/04/21 16:04 Total Bilirubin 0.3 mg/dL (0.15-1.2) 12/04/21 16:04 AST 27 U/L (0-32) 12/04/21 16:04 ALT 21 U/L (0-33) 12/04/21 16:04 Alkaline Phosphatase 109 IU/L (35-105) H 12/04/21 16:04 Troponin T Baseline 7 ng/L (0-10) 12/04/21 16:04 Troponin T 120 Minute 6.00 ng/L (0-10) 12/04/21 18:20 Delta Troponin T -1.0 ABS# (0-10) L 12/04/21 18:20 Total Protein 8.1 g/dL (6.6-8.7) 12/04/21 16:04 Albumin 5.5 g/dL (3.5-5.2) H 12/04/21 16:04 Globulin 2.6 g/dL (1.3-4.6) 12/04/21 16:04 Discharge Plan Discharge Patient Disposition: Home Clinical Impression: Chest pain Qualifiers: Chest pain type: unspecified Qualified Code(s): R07.9 - Chest pain, unspecified Condition: Stable Prescriptions: No Action amitriptyline 25 mg tablet See Rx Instructions .ROUTE .COMPLEX Qty: 30 0RF Dose Instruction: TAKE 1 TABLET BY MOUTH EVERY DAY Rx Instructions: TAKE 1 TABLET BY MOUTH EVERY DAY cyanocobalamin (vitamin B-12) 1,000 mcg/mL solution 1,000 mcg SUBCUT Q30D Qty: 1 0RF multivitamin Tablet 1 tab PO DAILY 0RF sumatriptan succinate 100 mg tablet See Rx Instructions .ROUTE .COMPLEX 0RF Rx Instructions: DIRECTED PRN levothyroxine 25 mcg tablet 25 mcg PO QAM 0RF meloxicam 7.5 mg tablet 7.5 mg PO DAILY 0RF fluticasone propionate 50 mcg/actuation spray,suspension 2 spray INTRANASAL DAILY 0RF ibandronate 150 mg tablet 150 mg PO Q30D 0RF Prilosec OTC 20 mg tablet,delayed release (DR/EC) 20 mg PO DAILY Qty: 14 0RF Tessalon Perles 100 mg capsule 100 mg PO TID PRN (Reason: cough) Qty: 14 0RF Medrol (Gera) 4 mg tablets,dose pack See Rx Instructions .ROUTE .COMPLEX Qty: 21 0RF Rx Instructions: orally per package directions ondansetron 4 mg tablet,disintegrating 4 mg PO Q8H PRN (Reason: nausea and vomiting) Qty: 10 0RF albuterol sulfate 90 mcg/actuation HFA aerosol inhaler 2 inh inhalation Q4H PRN (Reason: shortness of breath or wheezing) Qty: 8.5 0RF tizanidine 2 mg tablet 2 mg PO Q6H PRN (Reason: Spasms) 0RF Excedrin Extra Strength 250-250-65 mg Tablet 1 tab PO Q6H PRN (Reason: Pain) 0RF Discharge Orders: Discharge ED (Routine); Ordered 12/04/21 Ordered By: Loc Triplett Referrals: Braden Owen NP [Primary Care Provider] - 1-3 days Discharge Diet: Advance as tolerated Discharge Activity: Resume usual activity Patient Instructions: Chest Pain (ED) Coding Level of Care Code ED Decorative Engraver Apprentice for Chg Fwd Documented by User: Loc Triplett MD 12/04/21 19:45 HPI - Chest Pain General: Chief Complaint: Chest Pain Stated Complaint: CHEST PAIN Time Seen by Provider: 12/04/21 15:41 PFSH ED PFSH: Medical History Chronic migraine without aura, intractable, with status migrainosus Emphysema of lung Surgical History H/O colonoscopy History of appendectomy History of cholecystectomy History of colon resection History of hysterectomy History of surgery ULCERS AND PART OF STOMACH REMOVED Social History Smoking and tobacco status: former smoker Alcohol intake: former Course Vital Signs: Vital signs: Vital Signs Pulse Rate 91 12/04/21 19:40 Respiratory Rate 25 H 12/04/21 15:19 Blood Pressure 119/92 12/04/21 19:40 Pulse Oximetry 98 12/04/21 19:40 MDM - Chest Pain Medical Decision Making Patient presents here with chest pains atypical in nature initial repeat troponins are negative patient is well-appearing here and is stable for discharge she is to follow-up with PCP and return if worsening she understands agrees to plan. Lab Data : 12/04/21 16:04 12/04/21 16:04 Radiology Impressions Chest X-Ray 12/04/21 15:41 IMPRESSION: No acute findings. Laboratory Results WBC 4.6 10^3/uL (4.0-10.0) 12/04/21 16:04 RBC 5.18 10^6/uL (4.1-5.3) 12/04/21 16:04 Hgb 14.8 g/dL (11.5-15.3) 12/04/21 16:04 Hct 44.6 % (37.0-47.0) 12/04/21 16:04 MCV 86.1 fl (81-99) 12/04/21 16:04 MCH 28.6 pg (28.0-34.0) 12/04/21 16:04 MCHC 33.2 g/dL (30.0-36.0) 12/04/21 16:04 RDW 13.2 % (12.1-15.1) 12/04/21 16:04 Plt Count 206 10^3/cmm (130-400) 12/04/21 16:04 MPV 10.4 fL (7.4-10.4) 12/04/21 16:04 Neut % (Auto) 61.2 % 12/04/21 16:04 Lymph % (Auto) 28.6 % 12/04/21 16:04 Cavalier % (Auto) 6.5 % 12/04/21 16:04 Eos % (Auto) 3.3 % 12/04/21 16:04 Baso % (Auto) 0.2 % 12/04/21 16:04 Neut # (Auto) 2.82 10^3/uL (1.8-7.7) 12/04/21 16:04 Lymph # (Auto) 1.3 10^3/uL (0.8-4.8) 12/04/21 16:04 [place]alier # (Auto) 0.3 10^3/uL (0.2-0.9) 12/04/21 16:04 Eos # (Auto) 0.2 10^3/uL (0.0-0.8) 12/04/21 16:04 Baso # (Auto) 0.0 10^3/uL (0.0-0.1) 12/04/21 16:04 Nucleated RBC % (auto) 0 % 12/04/21 16:04 Nucleated RBCs # 0.0 /100WBC 12/04/21 16:04 Sodium 139 mmol/L (136-145) 12/04/21 16:04 Potassium 4.3 mmol/L (3.5-5.1) 12/04/21 16:04 Chloride 102 mmol/L (98-107) 12/04/21 16:04 Carbon Dioxide 25 mmol/L (22-29) 12/04/21 16:04 Anion Gap 16.3 (5-19) 12/04/21 16:04 BUN 15 mg/dL (6-20) 12/04/21 16:04 Creatinine 0.6 mg/dL (0.5-0.9) 12/04/21 16:04 GFR Calculation 103.4 mL/min (90-130) 12/04/21 16:04 Glucose 93 mg/dL (65-115) 12/04/21 16:04 Calculated Osmolality 289 mOsm/kg (285-295) 12/04/21 16:04 Calcium 10.1 mg/dL (8.5-10.5) 12/04/21 16:04 Total Bilirubin 0.3 mg/dL (0.15-1.2) 12/04/21 16:04 AST 27 U/L (0-32) 12/04/21 16:04 ALT 21 U/L (0-33) 12/04/21 16:04 Alkaline Phosphatase 109 IU/L (35-105) H 12/04/21 16:04 Troponin T Baseline 7 ng/L (0-10) 12/04/21 16:04 Troponin T 120 Minute 6.00 ng/L (0-10) 12/04/21 18:20 Delta Troponin T -1.0 ABS# (0-10) L 12/04/21 18:20 Total Protein 8.1 g/dL (6.6-8.7) 12/04/21 16:04 Albumin 5.5 g/dL (3.5-5.2) H 12/04/21 16:04 Globulin 2.6 g/dL (1.3-4.6) 12/04/21 16:04 Discharge Plan Discharge Patient Disposition: Home Clinical Impression: Chest pain Qualifiers: Chest pain type: unspecified Qualified Code(s): R07.9 - Chest pain, unspecified Condition: Stable Prescriptions: No Action amitriptyline 25 mg tablet See Rx Instructions .ROUTE .COMPLEX Qty: 30 0RF Dose Instruction: TAKE 1 TABLET BY MOUTH EVERY DAY Rx Instructions: TAKE 1 TABLET BY MOUTH EVERY DAY cyanocobalamin (vitamin B-12) 1,000 mcg/mL solution 1,000 mcg SUBCUT Q30D Qty: 1 0RF multivitamin Tablet 1 tab PO DAILY 0RF sumatriptan succinate 100 mg tablet See Rx Instructions .ROUTE .COMPLEX 0RF Rx Instructions: DIRECTED PRN levothyroxine 25 mcg tablet 25 mcg PO QAM 0RF meloxicam 7.5 mg tablet 7.5 mg PO DAILY 0RF fluticasone propionate 50 mcg/actuation spray,suspension 2 spray INTRANASAL DAILY 0RF ibandronate 150 mg tablet 150 mg PO Q30D 0RF Prilosec OTC 20 mg tablet,delayed release (DR/EC) 20 mg PO DAILY Qty: 14 0RF Tessalon Perles 100 mg capsule 100 mg PO TID PRN (Reason: cough) Qty: 14 0RF Medrol (Gera) 4 mg tablets,dose pack See Rx Instructions .ROUTE .COMPLEX Qty: 21 0RF Rx Instructions: orally per package directions ondansetron 4 mg tablet,disintegrating 4 mg PO Q8H PRN (Reason: nausea and vomiting) Qty: 10 0RF albuterol sulfate 90 mcg/actuation HFA aerosol inhaler 2 inh inhalation Q4H PRN (Reason: shortness of breath or wheezing) Qty: 8.5 0RF tizanidine 2 mg tablet 2 mg PO Q6H PRN (Reason: Spasms) 0RF Excedrin Extra Strength 250-250-65 mg Tablet 1 tab PO Q6H PRN (Reason: Pain) 0RF Discharge Orders: Discharge ED (Routine); Ordered 12/04/21 Ordered By: Loc Triplett Referrals: Braden Owen NP [Primary Care Provider] - 1-3 days Discharge Diet: Advance as tolerated Discharge Activity: Resume usual activity Patient Instructions: Chest Pain (ED) Coding Level of Care Code ED Decorative Engraver Apprentice for Storm Wolfe
[2021-12-04 16:42] LABS: Basophils % 0.2 %; Eosinophils # 0.2 10^3/uL (0.0-0.8); Eosinophils % 3.3 %; Hematocrit 44.6 % (37.0-47.0); Hemoglobin 14.8 g/dL (11.5-15.3); Lymphocytes # 1.3 10^3/uL (0.8-4.8); Lymphocytes % 28.6 %; Mean Corpuscular HGB Conc 33.2 g/dL (30.0-36.0); Mean Corpuscular Hemoglobin 28.6 pg (28.0-34.0); Mean Corpuscular Volume 86.1 fl (81-99); Mean Platelet Volume 10.4 fL (7.4-10.4); Monocytes # 0.3 10^3/uL (0.2-0.9); Monocytes % 6.5 %; Neutrophils # 2.82 10^3/uL (1.8-7.7); Neutrophils % 61.2 %; Nucleated Red Blood Cells % 0 %; Platelet Count 206 10^3/cmm (130-400); Red Blood Count 5.18 10^6/uL (4.1-5.3); Red Cell Distribution Width 13.2 % (12.1-15.1); White Blood Count 4.6 10^3/uL (4.0-10.0)
[2021-12-04 17:00] LABS: Troponin(5th) Baseline 7 ng/L (0-10)
[2021-12-04 17:05] LABS: Alanine Aminotransferase 21 U/L (0-33); Albumin Level 5.5 g/dL (3.5-5.2); Alkaline Phosphatase 109 IU/L (35-105); Anion Gap 16.3 (5-19); Aspartate Amino Transferase 27 U/L (0-32); Blood Urea Nitrogen 15 mg/dL (6-20); Calcium 10.1 mg/dL (8.5-10.5); Carbon Dioxide 25 mmol/L (22-29); Chloride 102 mmol/L (98-107); Globulin 2.6 g/dL (1.3-4.6); Glomerular Filtration Rate 103.4 mL/min (90-130); Glucose 93 mg/dL (65-115); Osmolality Calculated 289 mOsm/kg (285-295); Potassium 4.3 mmol/L (3.5-5.1); Sodium 139 mmol/L (136-145); Total Bilirubin 0.3 mg/dL (0.15-1.2); Total Protein 8.1 g/dL (6.6-8.7)
--- NOTE | 2021-12-04 17:41 | ECG_ITS ---
[facility] Test Date: 2021-12-04 Pat Name: Radha Maguire Department: Room: Gender: Female Director Of Nurses Registry: : 1965 Requested By: Narendra Ramírez Order Number: [id number] Emily MD: Shahnaz Stone M.D. Measurements Intervals [place] Rate: 95 P: 67 MT: 121 QRS: 57 QRSD: 81 T: 60 QT: 339 QTc: 427 Interpretive Statements SINUS RHYTHM POSSIBLE LEFT ATRIAL ENLARGEMENT [-0.1mV P-WAVE IN V1/V2] POSSIBLE RIGHT VENTRICULAR CONDUCTION DELAY [RSR (QR) IN V1/V2] Compared to ECG 12/04/2021 16:00:18 Ectopic atrial rhythm no longer present Short MT interval no longer present Electronically Signed On 12-04-2021 20:05:07 CDT by Shahnaz Stone M.D. [id number]
[2021-12-04 18:57] VITALS: BP 113/73; O2SAT 97
[2021-12-04] MEDS: HYDROcodone-acetaminophen 7.5-325 mg Tablet 1 TAB PO (19:31)
[2021-12-04 19:40] VITALS: BP 119/92; PULSE 91; O2SAT 98
== END 2021-12-04 19:43 | disposition home or self-care (01) ==
PROVIDERS: Family Medicine; Emergency Provider Emergency Medicine; PCP Nurse Practitioner Family
DX: R07.9 Chest pain, unspecified (principal)
CPT/HCPCS: 36415; 71045; 80053; 84484; 85025; 93005; 99284

== ENCOUNTER 2021-12-05 13:34 | Emergency (ER) | payer MEDICAID, SELFPAY ==
--- NOTE | 2021-12-05 13:58 | XRR_ITS ---
PROCEDURE INFORMATION: Exam: XR Chest Exam date and time: 12/05/2021 2:12 PM Age: 56 years old Clinical indication: Cough and dyspnea; Additional info: Dyspnea/cough TECHNIQUE: Imaging protocol: XR of the chest. Views: 1 view. COMPARISON: CR XR chest 1V portable [id number] 12/04/2021 4:14 PM FINDINGS: Lungs: Bilateral hyperinflation and probable mild emphysematous changes similar to prior exam. No obvious acute consolidation. Pleural spaces: Unremarkable. No pleural effusion. No pneumothorax. Heart/Mediastinum: No cardiomegaly or vascular congestion. Bones/joints: Osteopenia. Mild focal leftward scoliosis of the upper thoracic spine. Intraperitoneal space: Mild bowl surgical clips are noted in the upper abdomen. XR/XR chest 1V portable [id number] IMPRESSION: Pulmonary hyperinflation/probable emphysema. No obvious acute consolidation.
--- NOTE | 2021-12-05 13:58 | ECG_ITS ---
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 Measurements Intervals [place] Rate: 92 P: 70 CA: 125 QRS: 74 QRSD: 82 T: 73 QT: 333 QTc: 413 Interpretive Statements SINUS RHYTHM POSSIBLE LEFT ATRIAL ENLARGEMENT [-0.1mV P-WAVE IN V1/V2] POSSIBLE RIGHT VENTRICULAR CONDUCTION DELAY [RSR (QR) IN V1/V2] Compared to ECG 12/04/2021 17:42:30 No significant changes Electronically Signed On 12-06-2021 20:11:21 CDT by Meño Neff M.D. [id number]
[2021-12-05 14:06] VITALS: BP 124/87; PULSE 112; RESP 45; TEMP 36.8; O2SAT 97; BMI 17.6
--- NOTE | 2021-12-05 14:10 | W.ED.CHESTPA ---
Documented by User: Narendra Graham DO 12/06/21 06:09 HPI - Chest Pain General: Chief Complaint: Headache Stated Complaint: CHEST PAIN Time Seen by Provider: 12/05/21 13:43 Source: patient Mode of arrival: EMS Limitations: no limitations History of Present Illness: 56-year-old female was in the emergency room yesterday with complaint of chest pain serial cardiac enzymes were negative her chest pain did not sound cardiac in nature and she was discharged home she returns again today continued complaint of chest pain on arrival here she is tachypneic there is no wheezing and she is not demonstrates no hypoxia. Chest pain is worse with deep inspiration. No radiation of the pain no fever sweats chills. Patient has mild cough that is nonproductive. MD complaint: chest pain Pertinent past history: other (COPD) Onset (ago): day(s) Timing of current episode: episodic PFSH ED PFSH: Medical History Chronic migraine without aura, intractable, with status migrainosus Emphysema of lung Surgical History H/O colonoscopy History of appendectomy History of cholecystectomy History of colon resection History of hysterectomy History of surgery ULCERS AND PART OF STOMACH REMOVED Social History Smoking and tobacco status: former smoker Alcohol intake: former Course Vital Signs: Vital signs: Vital Signs Temperature 98.3 F 12/05/21 14:06 Pulse Rate 85 12/05/21 18:48 Respiratory Rate 20 H 12/05/21 18:48 Blood Pressure 100/73 12/05/21 18:48 Pulse Oximetry 95 12/05/21 18:48 MDM - Chest Pain Medical Decision Making Care signed out to Dr. Triplett at change of shift. See final notes for diagnosis and disposition. Patient presents with chest pain patient's troponin blood work here is all normal we will get her follow-up with cardiology she has no signs of acute symptoms. Return if worsening. Medical Records I reviewed the patient's medical records. Lab Data I reviewed the patient's lab results. : 12/05/21 16:52 12/05/21 15:47 Radiology Impressions Chest X-Ray 12/05/21 13:58 IMPRESSION: Pulmonary hyperinflation/probable emphysema. No obvious acute consolidation. Laboratory Results WBC 5.2 10^3/uL (4.0-10.0) 12/05/21 16:52 Corrected WBC Cancelled 12/05/21 15:47 RBC 4.95 10^6/uL (4.1-5.3) 12/05/21 16:52 Hgb 14.3 g/dL (11.5-15.3) 12/05/21 16:52 Hct 42.6 % (37.0-47.0) 12/05/21 16:52 MCV 86.1 fl (81-99) 12/05/21 16:52 MCH 28.9 pg (28.0-34.0) 12/05/21 16:52 MCHC 33.6 g/dL (30.0-36.0) 12/05/21 16:52 RDW 13.3 % (12.1-15.1) 12/05/21 16:52 Plt Count 230 10^3/cmm (130-400) 12/05/21 16:52 MPV 10.4 fL (7.4-10.4) 12/05/21 16:52 Gran % Cancelled 12/05/21 15:47 Neut % (Auto) 64.4 % 12/05/21 16:52 Lymph % (Auto) 26.9 % 12/05/21 16:52 [place] % (Auto) 6.2 % 12/05/21 16:52 Eos % (Auto) 2.1 % 12/05/21 16:52 Baso % (Auto) 0.2 % 12/05/21 16:52 Neut # (Auto) 3.32 10^3/uL (1.8-7.7) 12/05/21 16:52 Lymph # (Auto) 1.4 10^3/uL (0.8-4.8) 12/05/21 16:52 [place] # (Auto) 0.3 10^3/uL (0.2-0.9) 12/05/21 16:52 Eos # (Auto) 0.1 10^3/uL (0.0-0.8) 12/05/21 16:52 Baso # (Auto) 0.0 10^3/uL (0.0-0.1) 12/05/21 16:52 Absolute Gran (auto) Cancelled 12/05/21 15:47 Nucleated RBC % (auto) 0 % 12/05/21 16:52 Nucleated RBCs # 0.0 /100WBC 12/05/21 16:52 Specimen Type Arterial 12/05/21 14:00 Sample Site Brachial, right 12/05/21 14:00 ABG pH 7.44 (7.35-7.45) 12/05/21 14:00 ABG pCO2 36.1 mmHg (35-45) 12/05/21 14:00 ABG pO2 84.7 mmHg (80.0-100.0) 12/05/21 14:00 ABG HCO3 24.6 mmol/L (22-26) 12/05/21 14:00 ABG O2 Saturation 96.9 12/05/21 14:00 ABG Base Excess 0.8 mmol/L (-2.0-2.0) 12/05/21 14:00 Lauro Test N/a 12/05/21 14:00 A-a O2 Gradient 2.4 mmHg (5-10) L 12/05/21 14:00 Hematocrit 40.8 % (37-47) 12/05/21 14:00 Hgb O2 Saturation 95.5 % (95-100) 12/05/21 14:00 Carboxyhemoglobin 0.5 %THgb (0.4-20.1) 12/05/21 14:00 Methemoglobin 1.0 % (0.4-1.5) 12/05/21 14:00 Total Hemoglobin 13.3 g/dL (12-16) 12/05/21 14:00 Sodium 140.0 mmol/L (131-143) 12/05/21 14:00 Potassium 3.9 mmol/L (3.5-5.0) 12/05/21 14:00 Glucose 108.0 mg/dL (70-115) 12/05/21 14:00 Ionized Calcium 1.2 mmol/L (1.1-1.4) 12/05/21 14:00 O2 Delivery Device Room air 12/05/21 14:00 Dynamite Packing Machine Feeder ID [id number] 12/05/21 14:00 Sodium 137 mmol/L (136-145) 12/05/21 15:47 Potassium 4.3 mmol/L (3.5-5.1) 12/05/21 15:47 Chloride 102 mmol/L (98-107) 12/05/21 15:47 Carbon Dioxide 24 mmol/L (22-29) 12/05/21 15:47 Anion Gap 15.3 (5-19) 12/05/21 15:47 BUN 17 mg/dL (6-20) 12/05/21 15:47 Creatinine 0.5 mg/dL (0.5-0.9) 12/05/21 15:47 GFR Calculation 127.6 mL/min (90-130) 12/05/21 15:47 Glucose 100 mg/dL (65-115) 12/05/21 15:47 Calculated Osmolality 286 mOsm/kg (285-295) 12/05/21 15:47 Calcium 9.3 mg/dL (8.5-10.5) 12/05/21 15:47 Total Bilirubin 0.3 mg/dL (0.15-1.2) 12/05/21 15:47 AST 22 U/L (0-32) 12/05/21 15:47 ALT 19 U/L (0-33) 12/05/21 15:47 Alkaline Phosphatase 95 IU/L (35-105) 12/05/21 15:47 Creatine Kinase 25 U/L (26-192) L 12/05/21 15:47 Troponin T Gen 5 ng/L 6 ng/L (0-10) 12/05/21 15:47 Total Protein 6.8 g/dL (6.6-8.7) 12/05/21 15:47 Albumin 4.5 g/dL (3.5-5.2) 12/05/21 15:47 Globulin 2.3 g/dL (1.3-4.6) 12/05/21 15:47 Discharge Plan Discharge Patient Disposition: Home Clinical Impression: Headache, Chest pain Condition: Stable Prescriptions: No Action amitriptyline 25 mg tablet See Rx Instructions .ROUTE .COMPLEX Qty: 30 0RF Dose Instruction: TAKE 1 TABLET BY MOUTH EVERY DAY Rx Instructions: TAKE 1 TABLET BY MOUTH EVERY DAY cyanocobalamin (vitamin B-12) 1,000 mcg/mL solution 1,000 mcg SUBCUT Q30D Qty: 1 0RF multivitamin Tablet 1 tab PO DAILY 0RF sumatriptan succinate 100 mg tablet See Rx Instructions .ROUTE .COMPLEX 0RF Rx Instructions: DIRECTED PRN levothyroxine 25 mcg tablet 25 mcg PO QAM 0RF meloxicam 7.5 mg tablet 7.5 mg PO DAILY 0RF fluticasone propionate 50 mcg/actuation spray,suspension 2 spray INTRANASAL DAILY 0RF ibandronate 150 mg tablet 150 mg PO Q30D 0RF Prilosec OTC 20 mg tablet,delayed release (DR/EC) 20 mg PO DAILY Qty: 14 0RF Tessalon Perles 100 mg capsule 100 mg PO TID PRN (Reason: cough) Qty: 14 0RF Medrol (Gera) 4 mg tablets,dose pack See Rx Instructions .ROUTE .COMPLEX Qty: 21 0RF Rx Instructions: orally per package directions ondansetron 4 mg tablet,disintegrating 4 mg PO Q8H PRN (Reason: nausea and vomiting) Qty: 10 0RF albuterol sulfate 90 mcg/actuation HFA aerosol inhaler 2 inh inhalation Q4H PRN (Reason: shortness of breath or wheezing) Qty: 8.5 0RF tizanidine 2 mg tablet 2 mg PO Q6H PRN (Reason: Spasms) 0RF Excedrin Extra Strength 250-250-65 mg Tablet 1 tab PO Q6H PRN (Reason: Pain) 0RF Discharge Orders: Discharge ED (Routine); Ordered 12/05/21 Ordered By: Loc Triplett Referrals: Braden Owen NP [Referring] - Discharge Diet: Advance as tolerated Discharge Activity: Resume usual activity Patient Instructions: Chest Pain (ED), Acute Headache (ED) Coding Level of Care Code ED Director Of Undergraduate Admissions for Chg Fwd Documented by User: Loc Triplett MD 12/05/21 18:06 HPI - Chest Pain General: Chief Complaint: Headache Stated Complaint: CHEST PAIN Time Seen by Provider: 12/05/21 13:43 PFS ED PFSH: Medical History Chronic migraine without aura, intractable, with status migrainosus Emphysema of lung Surgical History H/O colonoscopy History of appendectomy History of cholecystectomy History of colon resection History of hysterectomy History of surgery ULCERS AND PART OF STOMACH REMOVED Social History Smoking and tobacco status: former smoker Alcohol intake: former Course Vital Signs: Vital signs: Vital Signs Temperature 98.3 F 12/05/21 14:06 Pulse Rate 85 12/05/21 18:48 Respiratory Rate 20 H 12/05/21 18:48 Blood Pressure 100/73 12/05/21 18:48 Pulse Oximetry 95 12/05/21 18:48 MDM - Chest Pain Medical Decision Making Care signed out to Dr. Triplett at change of shift. See final notes for diagnosis and disposition. Patient presents with chest pain patient's troponin blood work here is all normal we will get her follow-up with cardiology she has no signs of acute symptoms. Return if worsening. Lab Data : 12/05/21 16:52 12/05/21 15:47 Radiology Impressions Chest X-Ray 12/05/21 13:58 IMPRESSION: Pulmonary hyperinflation/probable emphysema. No obvious acute consolidation. Laboratory Results WBC 5.2 10^3/uL (4.0-10.0) 12/05/21 16:52 Corrected WBC Cancelled 12/05/21 15:47 RBC 4.95 10^6/uL (4.1-5.3) 12/05/21 16:52 Hgb 14.3 g/dL (11.5-15.3) 12/05/21 16:52 Hct 42.6 % (37.0-47.0) 12/05/21 16:52 MCV 86.1 fl (81-99) 12/05/21 16:52 MCH 28.9 pg (28.0-34.0) 12/05/21 16:52 MCHC 33.6 g/dL (30.0-36.0) 12/05/21 16:52 RDW 13.3 % (12.1-15.1) 12/05/21 16:52 Plt Count 230 10^3/cmm (130-400) 12/05/21 16:52 MPV 10.4 fL (7.4-10.4) 12/05/21 16:52 Gran % Cancelled 12/05/21 15:47 Neut % (Auto) 64.4 % 12/05/21 16:52 Lymph % (Auto) 26.9 % 12/05/21 16:52 [place] % (Auto) 6.2 % 12/05/21 16:52 Eos % (Auto) 2.1 % 12/05/21 16:52 Baso % (Auto) 0.2 % 12/05/21 16:52 Neut # (Auto) 3.32 10^3/uL (1.8-7.7) 12/05/21 16:52 Lymph # (Auto) 1.4 10^3/uL (0.8-4.8) 12/05/21 16:52 [place] # (Auto) 0.3 10^3/uL (0.2-0.9) 12/05/21 16:52 Eos # (Auto) 0.1 10^3/uL (0.0-0.8) 12/05/21 16:52 Baso # (Auto) 0.0 10^3/uL (0.0-0.1) 12/05/21 16:52 Absolute Gran (auto) Cancelled 12/05/21 15:47 Nucleated RBC % (auto) 0 % 12/05/21 16:52 Nucleated RBCs # 0.0 /100WBC 12/05/21 16:52 Specimen Type Arterial 12/05/21 14:00 Sample Site Brachial, right 12/05/21 14:00 ABG pH 7.44 (7.35-7.45) 12/05/21 14:00 ABG pCO2 36.1 mmHg (35-45) 12/05/21 14:00 ABG pO2 84.7 mmHg (80.0-100.0) 12/05/21 14:00 ABG HCO3 24.6 mmol/L (22-26) 12/05/21 14:00 ABG O2 Saturation 96.9 12/05/21 14:00 ABG Base Excess 0.8 mmol/L (-2.0-2.0) 12/05/21 14:00 Lauro Test N/a 12/05/21 14:00 A-a O2 Gradient 2.4 mmHg (5-10) L 12/05/21 14:00 Hematocrit 40.8 % (37-47) 12/05/21 14:00 Hgb O2 Saturation 95.5 % (95-100) 12/05/21 14:00 Carboxyhemoglobin 0.5 %THgb (0.4-20.1) 12/05/21 14:00 Methemoglobin 1.0 % (0.4-1.5) 12/05/21 14:00 Total Hemoglobin 13.3 g/dL (12-16) 12/05/21 14:00 Sodium 140.0 mmol/L (131-143) 12/05/21 14:00 Potassium 3.9 mmol/L (3.5-5.0) 12/05/21 14:00 Glucose 108.0 mg/dL (70-115) 12/05/21 14:00 Ionized Calcium 1.2 mmol/L (1.1-1.4) 12/05/21 14:00 O2 Delivery Device Room air 12/05/21 14:00 Dynamite Packing Machine Feeder ID [id number] 12/05/21 14:00 Sodium 137 mmol/L (136-145) 12/05/21 15:47 Potassium 4.3 mmol/L (3.5-5.1) 12/05/21 15:47 Chloride 102 mmol/L (98-107) 12/05/21 15:47 Carbon Dioxide 24 mmol/L (22-29) 12/05/21 15:47 Anion Gap 15.3 (5-19) 12/05/21 15:47 BUN 17 mg/dL (6-20) 12/05/21 15:47 Creatinine 0.5 mg/dL (0.5-0.9) 12/05/21 15:47 GFR Calculation 127.6 mL/min (90-130) 12/05/21 15:47 Glucose 100 mg/dL (65-115) 12/05/21 15:47 Calculated Osmolality 286 mOsm/kg (285-295) 12/05/21 15:47 Calcium 9.3 mg/dL (8.5-10.5) 12/05/21 15:47 Total Bilirubin 0.3 mg/dL (0.15-1.2) 12/05/21 15:47 AST 22 U/L (0-32) 12/05/21 15:47 ALT 19 U/L (0-33) 12/05/21 15:47 Alkaline Phosphatase 95 IU/L (35-105) 12/05/21 15:47 Creatine Kinase 25 U/L (26-192) L 12/05/21 15:47 Troponin T Gen 5 ng/L 6 ng/L (0-10) 12/05/21 15:47 Total Protein 6.8 g/dL (6.6-8.7) 12/05/21 15:47 Albumin 4.5 g/dL (3.5-5.2) 12/05/21 15:47 Globulin 2.3 g/dL (1.3-4.6) 12/05/21 15:47 Discharge Plan Discharge Patient Disposition: Home Clinical Impression: Headache, Chest pain Condition: Stable Prescriptions: No Action amitriptyline 25 mg tablet See Rx Instructions .ROUTE .COMPLEX Qty: 30 0RF Dose Instruction: TAKE 1 TABLET BY MOUTH EVERY DAY Rx Instructions: TAKE 1 TABLET BY MOUTH EVERY DAY cyanocobalamin (vitamin B-12) 1,000 mcg/mL solution 1,000 mcg SUBCUT Q30D Qty: 1 0RF multivitamin Tablet 1 tab PO DAILY 0RF sumatriptan succinate 100 mg tablet See Rx Instructions .ROUTE .COMPLEX 0RF Rx Instructions: DIRECTED PRN levothyroxine 25 mcg tablet 25 mcg PO QAM 0RF meloxicam 7.5 mg tablet 7.5 mg PO DAILY 0RF fluticasone propionate 50 mcg/actuation spray,suspension 2 spray INTRANASAL DAILY 0RF ibandronate 150 mg tablet 150 mg PO Q30D 0RF Prilosec OTC 20 mg tablet,delayed release (DR/EC) 20 mg PO DAILY Qty: 14 0RF Tessalon Perles 100 mg capsule 100 mg PO TID PRN (Reason: cough) Qty: 14 0RF Medrol (Gera) 4 mg tablets,dose pack See Rx Instructions .ROUTE .COMPLEX Qty: 21 0RF Rx Instructions: orally per package directions ondansetron 4 mg tablet,disintegrating 4 mg PO Q8H PRN (Reason: nausea and vomiting) Qty: 10 0RF albuterol sulfate 90 mcg/actuation HFA aerosol inhaler 2 inh inhalation Q4H PRN (Reason: shortness of breath or wheezing) Qty: 8.5 0RF tizanidine 2 mg tablet 2 mg PO Q6H PRN (Reason: Spasms) 0RF Excedrin Extra Strength 250-250-65 mg Tablet 1 tab PO Q6H PRN (Reason: Pain) 0RF Discharge Orders: Discharge ED (Routine); Ordered 12/05/21 Ordered By: Loc Triplett Referrals: Braden Owen NP [Referring] - Discharge Diet: Advance as tolerated Discharge Activity: Resume usual activity Patient Instructions: Chest Pain (ED), Acute Headache (ED) Coding Level of Care Code ED Director Of Undergraduate Admissions for Storm Wolfe
[2021-12-05 14:16] LABS: ABG PCO2 36.1 mmHg (35-45); ABG PH Result 7.44 (7.35-7.45); Alveolar-Arterial Oxygen Gradi 2.4 mmHg (5-10); Arterial Blood Gas Hematocrit 40.8 % (37-47); Base Excess ABG 0.8 mmol/L (-2.0-2.0); Blood Gas Operator Identificat GD; Blood Gas Sample Site Brachial, right; Blood Gas Sample Type Arterial; Carboxyhemoglobin 0.5 %THgb (0.4-20.1); HCO3 ABG 24.6 mmol/L (22-26); HGB O2 Sat 95.5 % (95-100); Ionized Calcium Level - ABG 1.2 mmol/L (1.1-1.4); Oxygen Device ROOM AIR; Oxygen Saturation ABG 96.9; PO2 ABG 84.7 mmHg (80.0-100.0); Potassium Level - ABG 3.9 mmol/L (3.5-5.0); Total Hemoglobin 13.3 g/dL (12-16)
[2021-12-05 16:14] LABS: Troponin T (5th) Once 6 ng/L (0-10)
[2021-12-05 16:16] LABS: Alanine Aminotransferase 19 U/L (0-33); Albumin Level 4.5 g/dL (3.5-5.2); Alkaline Phosphatase 95 IU/L (35-105); Anion Gap 15.3 (5-19); Aspartate Amino Transferase 22 U/L (0-32); Blood Urea Nitrogen 17 mg/dL (6-20); Calcium 9.3 mg/dL (8.5-10.5); Carbon Dioxide 24 mmol/L (22-29); Chloride 102 mmol/L (98-107); Creatine Phosphokinase 25 U/L (26-192); Globulin 2.3 g/dL (1.3-4.6); Glomerular Filtration Rate 127.6 mL/min (90-130); Glucose 100 mg/dL (65-115); Osmolality Calculated 286 mOsm/kg (285-295); Potassium 4.3 mmol/L (3.5-5.1); Sodium 137 mmol/L (136-145); Total Bilirubin 0.3 mg/dL (0.15-1.2); Total Protein 6.8 g/dL (6.6-8.7)
[2021-12-05 16:59] LABS: Basophils % 0.2 %; Eosinophils # 0.1 10^3/uL (0.0-0.8); Eosinophils % 2.1 %; Hematocrit 42.6 % (37.0-47.0); Hemoglobin 14.3 g/dL (11.5-15.3); Lymphocytes # 1.4 10^3/uL (0.8-4.8); Lymphocytes % 26.9 %; Mean Corpuscular HGB Conc 33.6 g/dL (30.0-36.0); Mean Corpuscular Hemoglobin 28.9 pg (28.0-34.0); Mean Corpuscular Volume 86.1 fl (81-99); Mean Platelet Volume 10.4 fL (7.4-10.4); Monocytes # 0.3 10^3/uL (0.2-0.9); Monocytes % 6.2 %; Neutrophils # 3.32 10^3/uL (1.8-7.7); Neutrophils % 64.4 %; Nucleated Red Blood Cells % 0 %; Platelet Count 230 10^3/cmm (130-400); Red Blood Count 4.95 10^6/uL (4.1-5.3); Red Cell Distribution Width 13.3 % (12.1-15.1); White Blood Count 5.2 10^3/uL (4.0-10.0)
[2021-12-05] MEDS: ketorolac 30 mg/mL INJ IVP (17:05)
[2021-12-05 17:07] VITALS: BP 129/85; PULSE 94; RESP 24; O2SAT 95
[2021-12-05 18:48] VITALS: BP 100/73; PULSE 85; RESP 20; O2SAT 95
--- NOTE | 2021-12-09 09:57 | DCPLANNER ---
Addendum entered by Maye Hendrickson 12/20/21 08:37: Patient had a follow up appointment scheduled with [facility] - patient did attend appointment. Addendum entered by Maye Hendrickson 12/11/21 21:34: Patient has a follow up appointment scheduled for Thursday, December 18, 2021 at 2:45 with Bonita Julio at [facility]. Clinic will call patient with appointment information. Original Note: sponsorship manager had message to schedule a follow up appointment for patient with [facility]. sponsorship manager sent patients information to the front office staff at [facility]. Patients information will be printed and reviewed. Clinic will call patient with appointment information.
== END 2021-12-05 18:43 | disposition home or self-care (01) ==
PROVIDERS: Family Medicine; Emergency Provider Emergency Medicine
DX: R07.9 Chest pain, unspecified (principal); R51.9 Headache, unspecified; J43.9 Emphysema, unspecified; Z87.891 Personal history of nicotine dependence; Z79.899 Other long term (current) drug therapy
CPT/HCPCS: 36600; 71045; 80051; 80053; 82330; 82550; 82805; 84484; 85025; 93005; 96374; 99284; J1885

== ENCOUNTER 2021-12-12 15:47 | Emergency (ER) | payer MEDICAID, SELFPAY ==
--- NOTE | 2021-12-12 16:15 | XRR_ITS ---
PROCEDURE INFORMATION: Exam: XR Right Foot Exam date and time: 12/12/2021 4:57 PM Age: 56 years old Clinical indication: Pain; Foot; Right; Additional info: Injury/pain TECHNIQUE: Imaging protocol: XR Right foot. Views: 3 or more views. COMPARISON: No relevant prior studies available. FINDINGS: Bones/joints: There is oblique fracture through the distal shaft of the right 4th metatarsal with minimal lateral angulation. There is comminuted nondisplaced fracture of the midshaft of the right 5th metatarsal. Soft tissues: Soft tissue swelling XR/XR foot RT min 3V* [id number] IMPRESSION: Fractures of the right 4th and 5th metatarsals
[2021-12-12 17:06] VITALS: BP 122/70; PULSE 89; RESP 20; TEMP 36.6; O2SAT 98; BMI 17.6
--- NOTE | 2021-12-12 17:19 | ED_ITS ---
HPI - Extremity Problem General: Chief complaint: Extremity Injury, Lower Stated complaint: POSSIBLE BROKE R FOOT Time Seen by Provider: 12/12/21 17:19 History of Present Illness: 56-year-old female comes in today for injury to the right foot. Patient reported that she was turning around and her foot was caught causing her to become twisted and injured. Patient reports pain to the lateral foot with swelling. Patient denies any other injury. Patient reports no head injury. Patient appears well. Patient responds appropriate to questions. Patient has a history of chronic migraines and peripheral neuropathy. Associated symptoms: Deny chest pain or rash Review of Systems General: Reports: 10 or more systems reviewed and unremarkable except in HPI and below Card: Denies: chest pain Resp: Denies: dyspnea Musc: Reports: extremity pain Skin/Breast: Denies: rash PFSH ED PFSH: Medical History Chronic migraine without aura, intractable, with status migrainosus Emphysema of lung Surgical History H/O colonoscopy History of appendectomy History of cholecystectomy History of colon resection History of hysterectomy History of surgery ULCERS AND PART OF STOMACH REMOVED Social History Smoking and tobacco status: former smoker Alcohol intake: former Physical Exam Const: COMMON NORMALS: no acute distress HENMT: COMMON NORMALS: atraumatic HEAD & SCALP: atraumatic Neck/C-Spine: COMMON NORMALS: full ROM Resp: COMMON NORMALS: normal respiratory effort Cardio: COMMON NORMALS: regular rate RATE: regular rate Back/Pelvis: COMMON NORMALS: thoracic and lumbar spine normal to inspection Extremity: RIGHT LOWER EXTREMITY: Yes foot & digits (Swelling and tenderness to the lateral foot) Right foot and digits: Yes inspection, Yes palpation, Yes ROM and Yes neurovascular exam Skin: COMMON NORMALS: no wounds Course Vital Signs: Vital signs: Vital Signs Temperature 97.9 F 12/12/21 17:06 Pulse Rate 89 12/12/21 17:06 Respiratory Rate 20 H 12/12/21 17:06 Blood Pressure 122/70 12/12/21 17:06 Pulse Oximetry 98 12/12/21 17:06 MDM - Extremity (Nontraumatic) Medical Decision Making 56-year-old female comes in today for injury to the right foot. On exam we note a hematoma to the dorsal foot with some tenderness, distal pulses and sensation are intact. Differential diagnosis includes but not limited to fracture, sprain, contusion. X-ray noted a fracture of the fourth and fifth metatarsal. Patient was put in a splint with recommendations for nonweightbearing and follow -up with orthopedic surgeon for further treatment. Case management will assist patient with follow-up with podiatry or orthopedist. Patient reported understanding and agreed to plan. Lab Data Radiology Impressions Foot X-Ray 12/12/21 16:15 IMPRESSION: Fractures of the right 4th and 5th metatarsals Discharge Plan Discharge Patient Disposition: Home Clinical Impression: Metatarsal bone fracture Qualifiers: Encounter type: initial encounter Metatarsal bone: unspecified metatarsal Fracture type: closed Fracture alignment: nondisplaced Laterality: right Qualified Code(s): S92.301A - Fracture of unspecified metatarsal bone(s), right foot, initial encounter for closed fracture Condition: Stable Prescriptions: New hydrocodone-acetaminophen 5-325 mg tablet 1 tab PO Q6H PRN (Reason: pain) Qty: 10 0RF No Action amitriptyline 25 mg tablet See Rx Instructions .ROUTE .COMPLEX Qty: 30 0RF Dose Instruction: TAKE 1 TABLET BY MOUTH EVERY DAY Rx Instructions: TAKE 1 TABLET BY MOUTH EVERY DAY cyanocobalamin (vitamin B-12) 1,000 mcg/mL solution 1,000 mcg SUBCUT Q30D Qty: 1 0RF multivitamin Tablet 1 tab PO DAILY 0RF sumatriptan succinate 100 mg tablet See Rx Instructions .ROUTE .COMPLEX 0RF Rx Instructions: DIRECTED PRN levothyroxine 25 mcg tablet 25 mcg PO QAM 0RF meloxicam 7.5 mg tablet 7.5 mg PO DAILY 0RF fluticasone propionate 50 mcg/actuation spray,suspension 2 spray INTRANASAL DAILY 0RF ibandronate 150 mg tablet 150 mg PO Q30D 0RF Prilosec OTC 20 mg tablet,delayed release (DR/EC) 20 mg PO DAILY Qty: 14 0RF Tessalon Perles 100 mg capsule 100 mg PO TID PRN (Reason: cough) Qty: 14 0RF Medrol (Gera) 4 mg tablets,dose pack See Rx Instructions .ROUTE .COMPLEX Qty: 21 0RF Rx Instructions: orally per package directions ondansetron 4 mg tablet,disintegrating 4 mg PO Q8H PRN (Reason: nausea and vomiting) Qty: 10 0RF albuterol sulfate 90 mcg/actuation HFA aerosol inhaler 2 inh inhalation Q4H PRN (Reason: shortness of breath or wheezing) Qty: 8.5 0RF tizanidine 2 mg tablet 2 mg PO Q6H PRN (Reason: Spasms) 0RF Excedrin Extra Strength 250-250-65 mg Tablet 1 tab PO Q6H PRN (Reason: Pain) 0RF Discharge Orders: Discharge ED (Routine); Ordered 12/12/21 Ordered By: Miguel Hobbs Discharge Diet: Usual diet Discharge Activity: Increase activity as tolerated Patient Instructions: Splint Care (ED), Opioid Safety Activity Restrictions/Additional Instructions: Keep wound clean and dry. Keep splint clean and dry. Use crutches for ambulation. Follow-up with primary care as needed. Case management will co ntact you regarding follow-up appointment with orthopedist/foot and ankle surgeon for further treatment. Return to ER for new concerns. Coding Level of Care Code ED [employer]ician for Storm Wolfe
[2021-12-12] MEDS: HYDROcodone-acetaminophen 5-325 mg Tablet 1 TAB PO (17:46)
--- NOTE | 2021-12-13 10:01 | DCPLANNER ---
Addendum entered by Maye Hendrickson 12/19/21 14:04: Patient had a follow up appointment scheduled for 12.17.21 with ortho - patient did not attend appointment. Original Note: provider network manager had message to schedule a follow up appointment for patient with ortho. provider network manager sent patients information to the front office staff at ortho. Patients information will be printed and reviewed. Clinic will call patient with appointment information.
== END 2021-12-12 18:01 | disposition home or self-care (01) ==
PROVIDERS: Emergency Provider Nurse Practitioner Family
DX: S92.344A Nondisplaced fracture of fourth metatarsal bone, right foot, initial encounter for closed fracture (principal); S92.354A Nondisplaced fracture of fifth metatarsal bone, right foot, initial encounter for closed fracture; S90.31XA Contusion of right foot, initial encounter; X50.1XXA Overexertion from prolonged static or awkward postures, initial encounter
CPT/HCPCS: 29515; 73630; 99283; E0114

== ENCOUNTER → 2021-12-18 14:44 | Outpatient (BNVA) | payer MEDICAID, SELFPAY | PROVIDERS: Visit Provider Nurse Practitioner Family | DX: R07.9 Chest pain, unspecified (principal); R94.31 Abnormal electrocardiogram [ECG] [EKG]; R00.2 Palpitations; R06.02 Shortness of breath | CPT/HCPCS: 99204 ==

== ENCOUNTER 2021-12-20 18:39 | Emergency (ER) | payer MEDICAID, SELFPAY ==
[2021-12-20 19:42] VITALS: BP 120/85; PULSE 91; RESP 16; TEMP 36.4; O2SAT 98
[2021-12-20 19:47] VITALS: BP 127/80; PULSE 91; RESP 20; O2SAT 99
--- NOTE | 2021-12-20 20:09 | XRR_ITS ---
PROCEDURE INFORMATION: Exam: XR Right Foot Exam date and time: 12/20/2021 8:35 PM Age: 56 years old Clinical indication: Pain; Foot; Right; Additional info: Injury TECHNIQUE: Imaging protocol: XR Right foot. Views: 3 or more views. COMPARISON: CR (LOW EXM, ) 12/12/2021 4:57 PM FINDINGS: Bones/joints: 4th metatarsal distal metaphyseal mildly comminuted mildly displaced fracture with minimal angulation, similar to prior exam. Fifth metatarsal mid diaphyseal comminuted mildly displaced fracture, similar to prior exam. Soft tissues: Normal. XR/XR foot RT min 3V* [id number] IMPRESSION: 1. 4th metatarsal distal metaphyseal mildly comminuted mildly displaced fracture with minimal angulation, similar to prior exam. 2. Fifth metatarsal mid diaphyseal comminuted mildly displaced fracture, similar to prior exam.
--- NOTE | 2021-12-20 20:15 | ED_ITS ---
HPI - Extremity Problem General: Chief complaint: Extremity Injury, Lower Stated complaint: FOOT FRACTURE Time Seen by Provider: 12/20/21 19:56 Source: patient and EMS Mode of arrival: EMS Limitations: no limitations History of Present Illness: 56-year-old female had a fall on the 12th with a right foot fracture she is post to follow-up with podiatry but never followed up. She states that her splint had fallen off at home as well as just been Antonio wrap and she has had pain and bruising she rates a 5 out of 10 denies any new injuries states pain is worse with movement improved with rest. Associated symptoms: Deny chest pain, fever(s) or rash Review of Systems Const: Denies: fever(s), chills, body aches or change in appetite Eyes: Denies: blurry vision or eye discomfort ENMT: Denies: throat pain or dental pain Card: Denies: chest pain Resp: Denies: dyspnea GI: Denies: abdominal pain, nausea, vomiting or diarrhea : Denies: dysuria Musc: Reports: extremity pain Skin/Breast: Denies: rash Neuro: Denies: headache(s) Psych: Denies: depression Gigi/Lymph: Denies: easy bruising All/Imm: Denies: urticaria PFSH ED PFSH: Medical History Chronic migraine without aura, intractable, with status migrainosus Emphysema of lung Surgical History H/O colonoscopy History of appendectomy History of cholecystectomy History of colon resection History of hysterectomy History of surgery ULCERS AND PART OF STOMACH REMOVED Social History Smoking and tobacco status: former smoker Alcohol intake: former Physical Exam Const: COMMON NORMALS: no acute distress, patient oriented x3 and healthy appearing HENMT: COMMON NORMALS: normocephalic and atraumatic HEAD & SCALP: normocephalic and atraumatic Eye: COMMON NORMALS: Equal, round and reactive pupils present and EOMs intact bilaterally PUPIL: Yes Equal, round and reactive pupils present Neck/C-Spine: COMMON NORMALS: full ROM and supple Chest: COMMONS NORMALS: normal inspection of the chest and normal palpation of entire chest wall Resp: COMMON NORMALS: normal respiratory effort, No retractions, No use of accessory muscles and clear to auscultation bilaterally AUSCULTATION: clear to auscultation bilaterally Cardio: COMMON NORMALS: regular rate, regular rhythm and No murmurs present (Cardio) RATE: regular rate RHYTHM: regular rhythm GI: COMMON NORMALS: Normal to inspection, nondistended, normoactive bowel sounds present, Soft to palpation, non-tender and no masses PALPATION: Yes Soft to palpation Extremity: NARRATIVE EXTREMITY EXAM: Bruising and tenderness to right foot Neuro: COMMON NORMALS: patient oriented x3, moves all extremities and no focal motor deficits Psych: COMMON NORMALS: mental status grossly normal, Normal thought process present and cooperative THOUGHT PROCESS: Normal thought process present Skin: COMMON NORMALS: no rashes or lesions noted and no wounds GENERAL SKIN EXAM: no rashes or lesions noted Course Vital Signs: Vital signs: Vital Signs Temperature 97.5 F L 12/20/21 19:42 Pulse Rate 91 12/20/21 19:47 Respiratory Rate 20 H 12/20/21 19:47 Blood Pressure 127/80 12/20/21 19:47 Pulse Oximetry 99 12/20/21 19:47 MDM - Extremity (Nontraumatic) Medical Decision Making Patient presents with a foot fracture she had missed her appointment with podiatry we will replace her splint and she is to follow-up with podiatry she is stable for discharge x-ray shows no changes. Discharge Plan Discharge Patient Disposition: Home Clinical Impression: Foot fracture, right Qualifiers: Encounter type: subsequent encounter Fracture type: closed Condition: Stable Prescriptions: No Action nitroglycerin 0.4 mg tablet, sublingual 0.4 mg sublingual Q5M PRN (Reason: chest pain) 30 Days Qty: 30 3RF Rx Instructions: until response; do not exceed 3 doses per episode amitriptyline 25 mg tablet See Rx Instructions .ROUTE .COMPLEX Qty: 30 0RF Dose Instruction: TAKE 1 TABLET BY MOUTH EVERY DAY Rx Instructions: TAKE 1 TABLET BY MOUTH EVERY DAY cyanocobalamin (vitamin B-12) 1,000 mcg/mL solution 1,000 mcg SUBCUT Q30D Qty: 1 0RF multivitamin Tablet 1 tab PO DAILY 0RF levothyroxine 25 mcg tablet 25 mcg PO QAM 0RF meloxicam 7.5 mg tablet 7.5 mg PO DAILY 0RF fluticasone propionate 50 mcg/actuation spray,suspension 2 spray INTRANASAL DAILY 0RF ibandronate 150 mg tablet 150 mg PO Q30D 0RF Prilosec OTC 20 mg tablet,delayed release (DR/EC) 20 mg PO DAILY Qty: 14 0RF Tessalon Perles 100 mg capsule 100 mg PO TID PRN (Reason: cough) Qty: 14 0RF albuterol sulfate 90 mcg/actuation HFA aerosol inhaler 2 inh inhalation Q4H PRN (Reason: shortness of breath or wheezing) Qty: 8.5 0RF tizanidine 2 mg tablet 2 mg PO Q6H PRN (Reason: Spasms) 0RF Excedrin Extra Strength 250-250-65 mg Tablet 1 tab PO Q6H PRN (Reason: Pain) 0RF hydrocodone-acetaminophen 5-325 mg tablet 1 tab PO Q6H PRN (Reason: pain) Qty: 10 0RF Discharge Orders: Discharge ED (Routine); Ordered 12/20/21 Ordered By: Loc Triplett Referrals: Jonel Yeh DPM [Physician] - 1-3 days Discharge Diet: Advance as tolerated Discharge Activity: Resume usual activity Patient Instructions: Foot Fracture in Adults (ED) Coding Level of Care Code ED Collar Setter Overlock for Storm Fwd Exam Comprehensive
[2021-12-20] MEDS: HYDROcodone-acetaminophen 5-325 mg Tablet 1 TAB PO (20:28)
--- NOTE | 2021-12-20 20:57 | PC.NURSE ---
Patient prefers to stay in wheelchair.
[2021-12-20 21:29] VITALS: BP 130/70; PULSE 81; RESP 18; O2SAT 97
== END 2021-12-20 21:20 | disposition home or self-care (01) ==
PROVIDERS: Emergency Provider Emergency Medicine
DX: S92.341D Displaced fracture of fourth metatarsal bone, right foot, subsequent encounter for fracture with routine healing (principal); S92.351D Displaced fracture of fifth metatarsal bone, right foot, subsequent encounter for fracture with routine healing; X58.XXXD Exposure to other specified factors, subsequent encounter
CPT/HCPCS: 29515; 73630; 99283

== ENCOUNTER → 2021-12-25 12:33 | Outpatient (BNVA) | payer MEDICAID, SELFPAY | PROVIDERS: PCP Nurse Practitioner Family; Referring Provider Emergency Medicine; Visit Provider Podiatrist Foot & Ankle Surgery | DX: S92.341A Displaced fracture of fourth metatarsal bone, right foot, initial encounter for closed fracture (principal); S92.354A Nondisplaced fracture of fifth metatarsal bone, right foot, initial encounter for closed fracture; W18.09XA Striking against other object with subsequent fall, initial encounter | CPT/HCPCS: 28475; 73620; 99204 ==

== ENCOUNTER 2021-12-25 15:35 | Outpatient (CLI) | payer MEDICAID, SELFPAY | END 2021-12-25 15:36 | disposition home or self-care (01) | LOC: SPT 15:36 | PROVIDERS: PCP Nurse Practitioner Family; Visit Provider Podiatrist Foot & Ankle Surgery | DX: Z46.89 Encounter for fitting and adjustment of other specified devices (principal); S92.342D Displaced fracture of fourth metatarsal bone, left foot, subsequent encounter for fracture with routine healing; X58.XXXD Exposure to other specified factors, subsequent encounter | CPT/HCPCS: 97760; 99204; L4361 ==

== ENCOUNTER 2022-01-14 12:41 | Outpatient (CLI) | payer MEDICAID, SELFPAY ==
--- NOTE | 2022-01-14 12:45 | USCV_ITS ---
Radha Maguire Age: 56 Gender: F : 1965 Exam Date: 01/14/2022 12:59 Ordering Phys: Meño Neff MD ([email or web address]) Technologist: RAMON Exam [place] [facility] [place] Indication: Chest pain, shortness of breath, abnormal ekg BP: 112 / 64 HR: 73 Rhythm: Sinus Technical Quality: Suboptimal MEASUREMENTS (Male / Female) Normal Values 2D ECHO LV Diastolic Diameter PLAX 3.2 cm 4.2 - 5.9 / 3.9 - 5.3 cm LV Systolic Diameter PLAX 2.3 cm IVS Diastolic Thickness 0.6 cm 0.6 - 1.0 / 0.6 - 0.9 cm IVS Systolic Thickness 0.9 cm LVPW Diastolic Thickness 0.9 cm 0.6 - 1.0 / 0.6 - 0.9 cm LVPW Systolic Thickness 1.0 cm LVOT Diameter 2.0 cm LV Ejection Fraction 2D Teich 55.8 % LV Ejection Fraction MOD 2C 46.0 % LV Ejection Fraction 2C AL 45.4 % LA Diameter 2.1 cm IVC Diameter 0.9 cm M-MODE Aortic Annulus Diameter 2.5 cm LA Ao Ratio MM 0.7 DOPPLER AV Peak Velocity 91.0 cm/s LVOT Peak Velocity 71.0 cm/s AV Area Cont Eq vti 2.5 cm squared AV Area Cont Eq pk 2.5 cm squared MV Area PHT 5.0 cm squared Mitral E to A Ratio 1.2 MV E' Velocity 40.5 cm/s Mitral E to MV E' Ratio 7.1 Mitral E to LV E' Lateral Ratio 6.8 Mitral E to LV E' Septal Ratio 7.4 Right Atrial Pressure 3.0 mmHg PV Peak Velocity 98.0 cm/s RV Acceleration Time 0.1 s RV Ejection Time 0.3 s RV AcT/ET 0.5 FINDINGS Left Ventricle Normal left ventricular size and systolic function, EF 55 %. No regional wall motion abnormalities. Segmental wall motion analysis is difficult because of the poor ultrasonic window Right Ventricle Normal right ventricular size and systolic function. Right Atrium Possibly of normal size Left Atrium Possibly of normal size Mitral Valve Minimally thickened mitral valve. trace to mild mitral valve regurgitation. Aortic Valve Valve morphology could not be delineated well Tricuspid Valve No gross abnormalities noted Pulmonic Valve Pulmonic valve not well visualized. Pericardium Normal pericardium without effusion. Aorta Normal ascending aorta dimension. IVC Appears to be of normal size. Not well-visualized. CONCLUSIONS Normal left ventricular size and systolic function, EF 55 %. No regional wall motion abnormalities. Segmental wall motion analysis is difficult because of the poor ultrasonic window. Minimally thickened mitral valve. trace to mild mitral valve regurgitation. Normal cardiac chamber sizes. there is no pericardial effusion. There are no intracardiac masses. No similar previous studies are available for comparison Dr Meño Neff MD FACC (Electronically Signed) Final Date: 15 January 2022 08:12 S
== END 2022-01-14 12:42 | disposition home or self-care (01) ==
PROVIDERS: PCP Nurse Practitioner Family; Visit Provider Internal Medicine Cardiovascular Disease
DX: R06.00 Dyspnea, unspecified (principal); R94.31 Abnormal electrocardiogram [ECG] [EKG]
CPT/HCPCS: 93306

== ENCOUNTER → 2022-01-15 08:24 | Outpatient (BNVA) | payer MEDICAID, SELFPAY | PROVIDERS: PCP Nurse Practitioner Family; Visit Provider Podiatrist Foot & Ankle Surgery | DX: S92.354D Nondisplaced fracture of fifth metatarsal bone, right foot, subsequent encounter for fracture with routine healing (principal); S92.344D Nondisplaced fracture of fourth metatarsal bone, right foot, subsequent encounter for fracture with routine healing; W01.0XXD Fall on same level from slipping, tripping and stumbling without subsequent striking against object, subsequent encounter | CPT/HCPCS: 73630; 99213; 99214 ==

== ENCOUNTER → 2022-01-29 13:39 | Outpatient (BNVA) | payer MEDICAID, SELFPAY | PROVIDERS: PCP Nurse Practitioner Family; Visit Provider Podiatrist Foot & Ankle Surgery | DX: S92.354D Nondisplaced fracture of fifth metatarsal bone, right foot, subsequent encounter for fracture with routine healing (principal); S92.344D Nondisplaced fracture of fourth metatarsal bone, right foot, subsequent encounter for fracture with routine healing; W18.09XA Striking against other object with subsequent fall, initial encounter | CPT/HCPCS: 73630; 99214 ==

== ENCOUNTER 2022-02-18 07:56 | Outpatient (CLI) | payer MEDICAID, SELFPAY ==
[2022-02-18 08:32] VITALS: BMI 20.7
--- NOTE | 2022-02-18 08:36 | ECG_ITS ---
[facility] Test Date: 2022-02-18 Pat Name: Radha Maguire Department: Room: Gender: Female Graduate Advisor: Barbra Marcoashely : 1965 Requested By: Meño Neff Order Number: [id number] Emily MD: Meño Neff M.D. Interpretive Statements NAME OF STUDY: LEXISCAN SESTAMIBI STRESS TEST INDICATION: Chest Pain, PROCEDURE: At the baseline, the EKG revealed normal sinus rhythm with a normal ST Ts.. The baseline blood pressure was mm Hg with a heart rate of beats/min. Lexiscan was infused over a period of 20 seconds. A total of 0.4 milligrams of Lexiscan was infused. The stress phase was continued for a total of 5 minutes. Heart rate at the end of the stress phase was 95 with a blood pressure 112/70. The EKG at the peak infusion revealed no significant changes. Sestamibi was injected 20 seconds after the Lexiscan infusion. Blood pressure at the end of the recovery phase was 114/70 with a heart rate of 93 per minute. CONCLUSION: 1. No significant EKG changes with the LexiScan infusion 2. No LexiScan induced chest pain or cardiac arrhythmia 3. Normal blood pressure and heart rate response 4. Sestamibi/sestamibi perfusion scan pending; see separate report. Electronically Signed On 02-21-2022 11:26:16 CDT by Meño Neff M.D. [id number]
--- NOTE | 2022-02-18 08:37 | NMCV_ITS ---
NM jewels perf SPECT r/s* [id number] Radha Maguire Age: 56 Gender: F : 1965 Exam Date: 02/18/2022 08:37 Ordering Phys: Meño Neff MD ([email or web address]) Technologist: CALEB Kumar Exam Location: [facility] Indications: CHEST PAIN STRESS TEST Please see separate stress test report in [facility] for full findings IMAGE PROTOCOL Rest/Stress 1 Lexiscan Day Radiopharmaceutical Dose (mCi) Administration Site Administered by Rest: Tc-99m 10.6 IV CAELB Washburn Sestamibi Stress:Tc-99m 32.1 IV CALEB Washburn Sestamibi Rest: 18-Feb-2022 60 Discovery 630 Stress: 18-Feb-2022 30 Discovery 630 0.4mg Lexiscan. Images obtained in supine and prone position. SPECT RESULTS Technical Quality: Good Raw Data Analysis: Subdiaphragmatic activity Image Corrections: No attenuation or motion correction applied Summed Stress Score: 0 Summed Rest Score: 0 Summed Difference Score: 0 PERFUSION FINDINGS Fairly uniform myocardial tracer uptake with no significant perfusion abnormalities. FUNCTIONAL RESULTS (calculated via Gated SPECT) Stress Image LV EF (%): 78 Stress EDV (mL):41 TID: 1.32 Stress ESV (mL):9 FUNCTIONAL FINDINGS: Segmental wall motion analysis revealing no gross wall motion abnormalities. Elevated transient ischemic dilatation ratio IMPRESSIONS 1. Myocardial perfusion imaging revealing uniform myocardial tracer uptake with no significant perfusion normalities. 2. Normal LV ejection fraction 70%. 3. Segmental wall motion analysis revealing no gross wall motion abnormalities. 4. Normal LV volume. 5. Elevated transient ischemic dilatation ratio (1.32 )may suggest endocardial ischemia. The positive predictive value of this finding is limited. Clinical correlation is recommended. Dr Meño Neff MD FACC (Electronically Signed) Final Date: 18 February 2022 13:03 S
[2022-02-18] MEDS: aminophylline 25 mg/mL SDV 10 mL IVP (09:48)
[2022-02-18 09:59] VITALS: BP 114/70; PULSE 99
== END 2022-02-18 07:57 | disposition home or self-care (01) ==
LOC: CDL 07:57
PROVIDERS: PCP Nurse Practitioner Family; Visit Provider Internal Medicine Cardiovascular Disease
DX: R07.9 Chest pain, unspecified (principal)
CPT/HCPCS: 78452; 93017; A9500; J0280

== ENCOUNTER → 2022-03-19 15:45 | Outpatient (BNVA) | payer MEDICAID, SELFPAY | PROVIDERS: PCP Nurse Practitioner Family; Visit Provider Internal Medicine Cardiovascular Disease | DX: R07.9 Chest pain, unspecified (principal); I10 Essential (primary) hypertension; R94.39 Abnormal result of other cardiovascular function study; Z87.891 Personal history of nicotine dependence | CPT/HCPCS: 80048; 85025; 85610; 86850; 86900; 99214 ==

== ENCOUNTER 2022-03-20 15:45 | Inpatient (IN) | payer MEDICAID, SELFPAY ==
[2022-03-20] VITALS (13 sets, daily range): BP systolic 133–166; BP diastolic 82–112; PULSE 88–108; RESP 16–24; TEMP 37.1; O2SAT 94–100; BMI 19.3
--- NOTE | 2022-03-20 16:38 | XRR_ITS ---
PROCEDURE INFORMATION: Exam: XR Chest Exam date and time: 03/20/2022 4:47 PM Age: 57 years old Clinical indication: Pain; Angina pectoris; Additional info: Chest pain TECHNIQUE: Imaging protocol: Radiologic exam of the chest. Views: 1 view. COMPARISON: CR XR chest 1V portable [id number] 12/05/2021 2:12 PM FINDINGS: Lungs: Unremarkable. No consolidation. Pleural spaces: Unremarkable. No pleural effusion. No pneumothorax. Heart/Mediastinum: Unremarkable. No cardiomegaly. Bones/joints: Unremarkable. XR/XR chest 1V portable [id number] IMPRESSION: No acute findings.
--- NOTE | 2022-03-20 16:46 | W.ED.GENADLT ---
HPI - General Adult General: Chief complaint: Chest Pain Stated complaint: SOB/CP Time Seen by Provider: 03/20/22 16:38 History of Present Illness: Patient is a 57-year-old female history of COPD, hyperlipidemia who presents emergency room for concerns of chest pressure. Patient tells me for the last month she has had worsening chest pressure. Patient had a recent stress test that was normal. Patient follows with Dr. Neff. Patient was told to come to the emergency room if her chest pain gets worse as she is due for a cath on 03/22/2022. Patient reports sudden onset of chest pressure since 11:00 this morning. Patient also reports exertional dyspnea since this morning. Patient denies any diaphoresis but reports vomiting and retching. Patient reports taking 1 dose of nitro with mild improvement in symptoms headache and nausea afterwards. Patient denies any diarrhea melena hematochezia. Patient denies runny nose, sore throat fever or chills. Onset: 11am Duration:ongoing Location:home Severity:moderate Associated symptoms: Reports chest pain; Deny dyspnea, nausea, rash, palpitations or vomiting Review of Systems Const: Denies: fever(s) or chills Eyes: Denies: change in vision ENMT: Denies: mouth pain Card: Reports: chest pain and dyspnea on exertion; Denies: palpitations Resp: Denies: dyspnea or non-productive cough GI: Denies: abdominal pain, nausea, vomiting or diarrhea : Denies: dysuria Musc: Denies: extremity pain Skin/Breast: Denies: rash or new lesions Neuro: Denies: weakness in extremities Psych: Reports: other (Normal mood) Gigi/Lymph: Denies: easy bruising [facility] ED PFSH: Medical History Atherosclerotic heart disease of [place] coronary artery with other forms of angina pectoris AV block, 2nd degree Chest pain Chronic migraine without aura, intractable, with status migrainosus Dyslipidemia Elevated blood pressure reading Emphysema of lung Quit in 2019 HTN (hypertension) Nausea and vomiting Recurrent vomiting Unstable angina Surgical History H/O colonoscopy History of appendectomy History of cholecystectomy History of colon resection History of hysterectomy History of surgery ULCERS AND PART OF STOMACH REMOVED Family History Mother CAD (coronary artery disease), Onset Age: 50 Cancer Lung disease Stroke Denies family history of Diabetes Clotting disorder Dementia Chronic kidney disease (CKD) Suicide Anesthesia complication Bleeding disorder Social History Smoking and tobacco status: former smoker (3-4years ago) Alcohol intake: former Physical Exam Const: COMMON NORMALS: alert HENMT: COMMON NORMALS: atraumatic HEAD & SCALP: atraumatic MOUTH: moist mucous membranes not abnormal Eye: COMMON NORMALS: EOMs intact bilaterally and conjunctivae normal CONJUNCTIVA: Yes conjunctivae normal Neck/C-Spine: COMMON NORMALS: full ROM and supple Resp: COMMON NORMALS: normal respiratory effort and clear to auscultation bilaterally AUSCULTATION: clear to auscultation bilaterally Cardio: COMMON NORMALS: regular rate RATE: regular rate GI: COMMON NORMALS: Soft to palpation and non-tender PALPATION: Yes Soft to palpation OTHER: No focal TTP. NO guarding rebound, guarding, rigidity. No CVA tenderness to percussion. Neg Alonzo/Neg McBurney's point tenderness, no suprabupic tenderness to palpation. Extremity: COMMON NORMALS: full ROM Neuro: SENSORIUM/ORIENTATION: Yes alert MOTOR EXAM: No Abnormal motor strength present and Other motor observations present (no focal motor deficits) Psych: COMMON NORMALS: speech normal SPEECH: Yes normal speech MOOD & AFFECT: Yes euthymic mood Course Vital Signs: Vital signs: Vital Signs Temperature 98.2 F 03/24/22 13:40 Pulse Rate 107 H 03/24/22 13:40 Respiratory Rate 18 03/24/22 13:40 Blood Pressure 106/66 03/24/22 12:00 Pulse Oximetry 98 03/24/22 13:40 Oxygen Delivery Me thod 03/24/22 08:00 MDM - General Adult Medical Decision Making 57-year-old female with a history of COPD and hypertension presenting to the emergency room with concerns of chest pressure and exertional dyspnea worsening since 11 AM. Patient took nitro without relief of symptoms. Will be admitted for chest pain work-up per request of Dr. Neff. Disposition: admission Lab Data : 03/23/22 03:40 03/23/22 03:40 Radiology Impressions Chest CTA 03/20/22 17:49 IMPRESSION: No evidence of pulmonary embolism. No acute infiltrate. KUB X-Ray 03/21/22 09:40 Impression: 1. Postsurgical changes in upper abdomen. 2. Large amount of fecal material in the colon. Chest X-Ray 03/21/22 11:54 IMPRESSION: No acute findings. Laboratory Results WBC 5.7 10^3/uL (4.0-10.0) 03/20/22 17:51 RBC 4.45 10^6/uL (4.1-5.3) 03/20/22 17:51 Hgb 12.4 g/dL (11.5-15.3) 03/20/22 17:51 Hct 37.1 % (37.0-47.0) 03/20/22 17:51 MCV 83.4 fl (81-99) 03/20/22 17:51 MCH 27.9 pg (28.0-34.0) L 03/20/22 17:51 MCHC 33.4 g/dL (30.0-36.0) 03/20/22 17:51 RDW 13.4 % (12.1-15.1) 03/20/22 17:51 Plt Count 220 10^3/cmm (130-400) 03/20/22 17:51 MPV 10.3 fL (7.4-10.4) 03/20/22 17:51 Neut % (Auto) 50.2 % 03/20/22 17:51 Lymph % (Auto) 33.6 % 03/20/22 17:51 Cla[place]orne % (Auto) 11.4 % 03/20/22 17:51 Eos % (Auto) 4.4 % 03/20/22 17:51 Baso % (Auto) 0.2 % 03/20/22 17:51 Neut # (Auto) 2.86 10^3/uL (1.8-7.7) 03/20/22 17:51 Lymph # (Auto) 1.9 10^3/uL (0.8-4.8) 03/20/22 17:51 Cla[place]orne # (Auto) 0.7 10^3/uL (0.2-0.9) 03/20/22 17:51 Eos # (Auto) 0.3 10^3/uL (0.0-0.8) 03/20/22 17:51 Baso # (Auto) 0.0 10^3/uL (0.0-0.1) 03/20/22 17:51 Nucleated RBC % (auto) 0 % 03/20/22 17:51 Nucleated RBCs # 0.0 /100WBC 03/20/22 17:51 D-Dimer 2.52 ug/mIFEU (0-0.59) H 03/20/22 17:03 Sodium 139 mmol/L (136-145) 03/20/22 17:51 Potassium 4.0 mmol/L (3.5-5.1) 03/20/22 17:51 Chloride 101 mmol/L (98-107) 03/20/22 17:51 Carbon Dioxide 26 mmol/L (22-29) 03/20/22 17:51 Anion Gap 16.0 (5-19) 03/20/22 17:51 BUN 16 mg/dL (6-20) 03/20/22 17:51 Creatinine 0.6 mg/dL (0.5-0.9) 03/20/22 17:51 GFR Calculation 103.0 mL/min (90-130) 03/20/22 17:51 Glucose 111 mg/dL (65-115) 03/20/22 17:51 Calculated Osmolality 290 mOsm/kg (285-295) 03/20/22 17:51 Calcium 9.6 mg/dL (8.5-10.5) 03/20/22 17:51 Troponin T Baseline 6 ng/L (0-10) 03/20/22 17:51 Troponin T Hi Sens 6Hr 6.26 ng/L (0-10) 03/20/22 02:10 Troponin T Hi Sens 6Hr Delta 0.26 ng/L (0-12) 03/20/22 02:10 Discharge Plan Discharge Patient Disposition: Admitted As Inpatient Admit Provider: David Sotelo Clinical Impression: Chest pain Condition: Stable Discharge Diet: Cardiac Discharge Activity: Increase activity as tolerated Coding Level of Care Code ED Central Communications Specialist for Chg Fwd Exam Comprehensive
--- NOTE | 2022-03-20 16:47 | ECG_ITS ---
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 Measurements Intervals [place] Rate: 98 P: 70 MT: 124 QRS: 73 QRSD: 83 T: 71 QT: 315 QTc: 403 Interpretive Statements SINUS RHYTHM POSSIBLE LEFT ATRIAL ENLARGEMENT [-0.1mV P WAVE IN V1/V2] POSSIBLE RIGHT VENTRICULAR CONDUCTION DELAY [RSR (QR) IN V1/V2] Compared to ECG 12/05/2021 14:02:43 No significant changes Electronically Signed On 03-20-2022 22:56:56 CDT by Meño Neff M.D. [id number]
[2022-03-20 17:45] LABS: D Dimer 2.52 ug/mIFEU (0-0.59)
--- NOTE | 2022-03-20 17:49 | CTR_ITS ---
PROCEDURE INFORMATION: Exam: CTA Chest With Contrast Exam date and time: 03/20/2022 7:44 PM Age: 57 years old Clinical indication: Pain and abnormal findings; Abnormal diagnostic tests; Elevated d-dimer; Chest wall pain; Prior surgery; Surgery date: 6+ months; Surgery type: Gb, gastric, partial colon; Additional info: Elevated dimer TECHNIQUE: Imaging protocol: Computed tomographic angiography of the chest with contrast. 3D rendering (Not supervised by radiologist): MIP and/or 3D reconstructed images were created by the technologist. Radiation optimization: All CT scans at this facility use at least one of these dose optimization techniques: automated exposure control; mA and/or kV adjustment per patient size (includes targeted exams where dose is matched to clinical indication); or iterative reconstruction. Contrast material: OMNIPAQUE 350; Contrast volume: 95 ml; Contrast route: INTRAVENOUS (IV); COMPARISON: CT chest [facility] [id number] 05/31/2020 9:06 AM RADIATION DOSE METRICS: Total DLP (mGy-cm): 128.16 FINDINGS: Pulmonary arteries: There is no evidence of filling defects within the pulmonary arterial circulation to suggest pulmonary embolism. Aorta: There is no thoracic aortic aneurysm or dissection. Lungs: Lungs are clear. Pleural spaces: Unremarkable. No pneumothorax. No pleural effusion. Heart: Unremarkable. No cardiomegaly. No pericardial effusion. Lymph nodes: There is no evidence of lymphadenopathy. Bones/joints: There is mild S shaped scoliosis of the thoracic spine. Soft tissues: Unremarkable. CT/CT angio chest PE protcl [id number] IMPRESSION: No evidence of pulmonary embolism. No acute infiltrate.
--- NOTE | 2022-03-20 17:50 | PC.PHAR ---
pt states she has [facility] they are closed cant get med list-pt states she knows the names of her medications-medications entered are meds the pt states she takes-pt states she takes headache relief ([id number]) 2 tabs bid-on 03/19/22 wrote for 81mg aspirin daily-pt states the Dr told her it was okay just to take the headache relief [address] of the 81mg aspirin-pt states she has not started taking the metoprolol tartrate 25mg bid or the lipitor 40mg daily written on 03/19/22-pt states she is taking a cyanocobalamin (vit b-12) injection 1ml everyday rx last filled 03/04/2021 for a 1ml bottle for 1ml [id number] are made in the pharmacy comments
[2022-03-20] MEDS: morphine 4 mg/mL SDV 1 mL IVP ×2 (17:54→21:17)
[2022-03-20 17:58] LABS: Basophils % 0.2 %; Eosinophils # 0.3 10^3/uL (0.0-0.8); Eosinophils % 4.4 %; Hematocrit 37.1 % (37.0-47.0); Hemoglobin 12.4 g/dL (11.5-15.3); Lymphocytes # 1.9 10^3/uL (0.8-4.8); Lymphocytes % 33.6 %; Mean Corpuscular HGB Conc 33.4 g/dL (30.0-36.0); Mean Corpuscular Hemoglobin 27.9 pg (28.0-34.0); Mean Corpuscular Volume 83.4 fl (81-99); Mean Platelet Volume 10.3 fL (7.4-10.4); Monocytes # 0.7 10^3/uL (0.2-0.9); Monocytes % 11.4 %; Neutrophils # 2.86 10^3/uL (1.8-7.7); Neutrophils % 50.2 %; Nucleated Red Blood Cells % 0 %; Platelet Count 220 10^3/cmm (130-400); Red Blood Count 4.45 10^6/uL (4.1-5.3); Red Cell Distribution Width 13.4 % (12.1-15.1); White Blood Count 5.7 10^3/uL (4.0-10.0)
--- NOTE | 2022-03-20 18:11 | P.HP_ITS ---
Providers/Chief Complaint Admitting Physician: David Sotelo MD Primary Care Provider: Braden Owen NP Chief Complaint: SOB/CP History of Present Illness Radha Maguire is a 57 year old female who was sent by Dr. Neff for her persistent chest pain. There is plan for angiogram tomorrow hospital service has been requested to admit the patient. Her D-dimer is 2.5, patient is hy pertensive at the time of my evaluation stating that morphine has helped to ease her pain. Patient is stating that she has been having chest pain for last 1 month it started spontaneously which she describing as pressure-like sensation substernally radiating towards her back and would last for at least 30 minutes to 1 hour. It is associate with nausea and shortness of breath. She is endorsing family history of AR, her mother suffered from a heart attack around this age. This is making her very anxious she is hypertensive in the ER complaining of dull substernal chest pain. Recent echo showed EF 55% without regional wall motion abnormality, current EKG showing sinus rhythm at the time of my evaluation troponins are pending Review of Systems Const: Denies: chills Eyes: Denies: change in vision ENMT: Denies: throat pain Card: Reports: chest pain Resp: Reports: dyspnea GI: Reports: nausea : Denies: flank pain Musc: Denies: neck pain Skin/Breast: Denies: rash Neuro: Denies: headache(s) Psych: Reports: anxiety Endo: Denies: polyuria Gigi/Lymph: Denies: easy bruising All/Imm: Denies: urticaria Medications/Allergies Home Medications Medication Instructions Recorded Confirmed Last Taken Type tizanidine 2 mg tablet 2 mg PO Q6H PRN Spasms 10/12/19 03/20/22 Unknown History fluticasone propionate 50 2 spray intranasal DAILY 09/21/20 03/20/22 03/19/22 History mcg/actuation nasal spray,suspension (Flonase Allergy Relief) ibandronate 150 mg tablet 150 mg PO Q30D 09/21/20 03/20/22 Unknown History levothyroxine 25 mcg tablet 25 mcg PO QAM 09/21/20 03/20/22 03/20/22 History meloxicam 7.5 mg tablet 7.5 mg PO DAILY 09/21/20 03/20/22 03/20/22 History multivitamin 1 tab PO QAM 09/21/20 03/20/22 03/20/22 History nitroglycerin 0.4 mg sublingual 0.4 mg sublingual Q5M PRN chest 12/18/21 03/20/22 03/20/22 13:30 Rx tablet pain 30 days #30 tabs Cam Boot to the left #1 ea 12/25/21 03/20/22 Unknown Rx atorvastatin 40 mg tablet (Lipitor) 40 mg PO DAILY #30 tabs 03/19/22 03/20/22 Unknown Rx metoprolol tartrate 25 mg tablet 25 mg PO BID 30 days #60 tabs 03/19/22 03/20/22 Unknown Rx albuterol sulfate 90 mcg/actuation 2 puff inhalation Q4H PRN 03/20/22 03/20/22 Unknown History aerosol inhaler shortness of breath or wheezing djllnlw-isosdskqnbhwz-kxvvmtmw 250 2 tab PO BID 03/20/22 03/20/22 03/20/22 08:30 History mg-250 mg-65 mg tablet (Headache Relief (OIR-rgadvzgzxzrg-bbymwezi)) cyanocobalamin (vitamin B-12) 1,000 mcg SUBCUT DAILY 03/20/22 03/20/22 03/19/22 History 1,000 mcg/mL injection solution see pharmacy comment omeprazole magnesium 20 mg 20 mg PO QAM 03/20/22 03/20/22 03/20/22 History tablet,delayed release (Prilosec OTC) rizatriptan 10 mg tablet 10 mg PO Q2H PRN Migraine Headache 03/20/22 03/20/22 Unknown History Allergies Allergy/AdvReac Type Severity Reaction Status Date / Time diphenhydramine Allergy Unknown Verified 03/20/22 17:33 [From Benadryl] ibuprofen [From Motrin] Allergy ALGY-Anaphy Verified 03/20/22 17:33 laxis Penicillins Allergy ALGY-Anaphy Verified 03/20/22 17:33 laxis tramadol Allergy Unknown Verified 03/20/22 17:33 PFSH Acute PFSH: Medical History Chronic migraine without aura, intractable, with status migrainosus Emphysema of lung Quit in 2019 Surgical History H/O colonoscopy History of appendectomy History of cholecystectomy History of colon resection History of hysterectomy History of surgery ULCERS AND PART OF STOMACH REMOVED Family History Mother CAD (coronary artery disease), Onset Age: 50 Cancer Lung disease Stroke Denies family history of Diabetes Clotting disorder Dementia Chronic kidney disease (CKD) Suicide Anesthesia complication Bleeding disorder Social History Smoking and tobacco status: former smoker Alcohol intake: former Vitals/I&O/Wt Last Vital Signs Temp 98.7 F 03/20/22 16:22 Pulse 102 H 03/20/22 16:22 Resp 20 H 03/20/22 17:54 BP 133/82 03/20/22 16:22 Pulse Ox 95 03/20/22 17:54 O2 Del Method 03/20/22 16:22 Weight last 48 hrs Weight 49.442 kg Physical Exam Narrative: Very pleasant cooperative female Hypertensive In pain as IV access was being obtained Patient is sitting her chest pain has eased up Does not look fluid overloaded Thin and lean very pleasant female No audible stridor or wheeze Abdomen is soft Nonfocal neuro exam Currently saturating well on room air Data : 03/21/22 02:10 03/21/22 02:10 A&P Assessment and plan (1) Unstable angina: Status: Acute Plan Unstable angina Substernal chest pain, radiating towards her back more than 30 minutes, associated with nausea and shortness of breath Plan for angiogram tomorrow N.p.o. after midnight Dr. Neff will be consulted Please note at the time of my admission troponins are pending Patient is stating that she is DNR/DNI but okay for intubation for sacral procedure She is very anxious and in pain I will put Nitropaste on I have counseled her regarding headache Continue aspirin, statins, therapeutic Lovenox, lisinopril and metoprolol succinate I would continue her levothyroxine Hold her NSAIDs DNR/DNI N.p.o. after midnight She can eat before midnight In case of any worsening of chest pain kindly let cardiology know She also has history of migraines I would avoid sumatriptan for now Attestations 2 Medical Necessity Statement*: Anticipating more than 2 midnights for management of unstable angina Time Spent in Patient Care: 40 Coding Level of Care Code Acute Marketing Communications Associate for Storm Wolfe Diagnoses Unstable angina I20.0
[2022-03-20 18:55] LABS: Troponin(5th) Baseline 6 ng/L (0-10)
[2022-03-20 18:56] LABS: Blood Urea Nitrogen 16 mg/dL (6-20); Calcium 9.6 mg/dL (8.5-10.5); Carbon Dioxide 26 mmol/L (22-29); Chloride 101 mmol/L (98-107); Glucose 111 mg/dL (65-115); Osmolality Calculated 290 mOsm/kg (285-295); Sodium 139 mmol/L (136-145)
[2022-03-20] MEDS: HYDROmorphone 1 mg/mL INJ 1 mL 0.5 MG IVP (19:30)
--- NOTE | 2022-03-20 19:42 | P.CONIM_ITS ---
Providers/Reason For Consult Consulting Physician/Specialty*: My name/cardiology Reason for Consult*: Patient with unstable angina Attending Physician: David Sotelo MD Primary Care Provider: Braden Owen NP History of Present Illness History of Present Illness Radha Maguire is a 57 year old female, is admitted to hospital through the emergency room where she presented with the complaints of chest pain since this morning. This patient has been complaining of chest pain off and on for the last couple of months. She had an echocardiogram and Myocardial perfusion imaging recently. The Myocardial perfusion imaging revealed an elevated transient ischemic dilatation ratio of 1.32. She apparently is scheduled for a cardiac catheterization next week for the worsening of her symptoms. This morning around 830, patient woke up with pain in the chest. The pain was in the mid substernal area, radiated to the back between the shoulder blades. She had associated shortness of breath, nausea and sweating. Intensity of the pain was 8-9 over 10. The pain was waxing and waning throughout the morning. She took 1 sublingual nitro around 1:00 this afternoon. She got some relief of the symptoms. However because of the persistence of the symptoms, she was brought to the emergency room by her friend. She had some headache and dizziness after the nitroglycerin. Currently at the time of my examination, patient is pain-free. However she is found to be very nervous and jittery. She has no fever, chills or cough. Denies any other specific complaints. Patient has a history of smoking abuse, used to smoke a pack a day for 30 years or so which she quit at the age of 50.? She has no history of coronary alcohol abuse or any substance abuse.? Her mother had a myocardial infarction in her 50s.? She had open heart surgery.? Father had a?? Broken heart syndrome and CVA.? He of CVA?.? Details are not available. Patient has occasional elevated blood pressure but noted being treated for hypertension.? The cholesterol status is not known.? Recently she was started on omega-3. Review of Systems Narrative: CONSTITUTIONAL: No fever or chills. EYES: No blurring of vision or other visual disturbances lately. ENT: No hoarseness of voice, auditory disturbances or sore throat. CARDIOVASCULAR: As mentioned above. RESPIRATORY: History of COPD GASTROINTESTINAL: No hematemesis or melena. GENITOURINARY: No dysuria or hematuria. INTEGUMENTARY: No skin rashes or history of skin cancer. NEURO: No transient ischemic attacks or amaurosis. PSYCHIATRIC: No history of psychosis or major depression. HEMATOLOGIC: No bleeding disorders or significant anemia. ENDOCRINE: No history of polyuria or polydipsia. MUSCULOSKELETAL: History of recent fracture of the metatarsal bone ALLERGY/IMMUNOLOGY: As mentioned above. Medications/Allergies Home Medications Medication Instructions Recorded Confirmed Last Taken Type tizanidine 2 mg tablet 2 mg PO Q6H PRN Spasms 10/12/19 03/20/22 Unknown History fluticasone propionate 50 2 spray intranasal DAILY 09/21/20 03/20/22 03/19/22 History mcg/actuation nasal spray,suspension (Flonase Allergy Relief) ibandronate 150 mg tablet 150 mg PO Q30D 09/21/20 03/20/22 Unknown History levothyroxine 25 mcg tablet 25 mcg PO QAM 09/21/20 03/20/22 03/20/22 History meloxicam 7.5 mg tablet 7.5 mg PO DAILY 09/21/20 03/20/22 03/20/22 History multivitamin 1 tab PO QAM 09/21/20 03/20/22 03/20/22 History nitroglycerin 0.4 mg sublingual 0.4 mg sublingual Q5M PRN chest 12/18/21 03/20/22 03/20/22 13:30 Rx tablet pain 30 days #30 tabs Cam [place] to the left #1 ea 12/25/21 03/20/22 Unknown Rx atorvastatin 40 mg tablet (Lipitor) 40 mg PO DAILY #30 tabs 03/19/22 03/20/22 Unknown Rx metoprolol tartrate 25 mg tablet 25 mg PO BID 30 days #60 tabs 03/19/22 03/20/22 Unknown Rx albuterol sulfate 90 mcg/actuation 2 puff inhalation Q4H PRN 03/20/22 03/20/22 Unknown History aerosol inhaler shortness of breath or wheezing jujjipf-hwniblmwrrsbt-wlorlfju 250 2 tab PO BID 03/20/22 03/20/22 03/20/22 08:30 History mg-250 mg-65 mg tablet (Headache Relief (NOR-aubltdvhjkhe-jqdxkjos)) cyanocobalamin (vitamin B-12) 1,000 mcg SUBCUT DAILY 03/20/22 03/20/22 03/19/22 History 1,000 mcg/mL injection solution see pharmacy comment omeprazole magnesium 20 mg 20 mg PO QAM 03/20/22 03/20/22 03/20/22 History tablet,delayed release (Prilosec OTC) rizatriptan 10 mg tablet 10 mg PO Q2H PRN Migraine Headache 03/20/22 03/20/22 Unknown History Allergies Allergy/AdvReac Type Severity Reaction Status Date / Time diphenhydramine Allergy Unknown Verified 03/20/22 17:33 [From Benadryl] ibuprofen [From Motrin] Allergy ALGY-Anaphy Verified 03/20/22 17:33 laxis Penicillins Allergy ALGY-Anaphy Verified 03/20/22 17:33 laxis tramadol Allergy Unknown Verified 03/20/22 17:33 PFSH Acute PFSH: Medical History Chronic migraine without aura, intractable, with status migrainosus Emphysema of lung Quit in 2019 Surgical History H/O colonoscopy History of appendectomy History of cholecystectomy History of colon resection History of hysterectomy History of surgery ULCERS AND PART OF STOMACH REMOVED Family History Mother CAD (coronary artery disease), Onset Age: 50 Cancer Lung disease Stroke Denies family history of Diabetes Clotting disorder Dementia Chronic kidney disease (CKD) Suicide Anesthesia complication Bleeding disorder Social History Smoking and tobacco status: former smoker Alcohol intake: former Vitals/I&O/Wt Last Vital Signs Temp 98.7 F 03/20/22 16:22 Pulse 96 03/20/22 19:24 Resp 24 H 03/20/22 19:30 BP 157/94 03/20/22 19:24 Pulse Ox 97 03/20/22 19:24 O2 Del Method 03/20/22 18:26 Weight last 48 hrs Weight 109 lb Physical Exam Narrative: GENERAL: The patient is alert and oriented times three. Not in any acute distress. HEENT: No significant pallor, icterus or lymphadenopathy.Oral cavity: There are no mucous membrane lesions. NECK: Trachea appears to be central. No masses noted. No JVD or thyromegaly appreciated. RESPIRATORY: Chest is symmetrical. No intercostals muscle retraction or any accessory muscle activation. There is no chest wall tenderness. Breath sounds are heard bilaterally. No rales or rhonchi heard. No evidence of any consolidation. BREASTS: Deferred. HEART: The heart sounds are normal. No S3 or S4. No significant murmurs. No pericardial rub ABDOMEN: No vessel pulsations or distention. No tenderness. No organomegaly appreciated. Bowel sounds are normally heard. : Deferred. RECTAL: Deferred. LYMPHATIC: No lymphadenopathy noted in the neck. EXTREMITIES: No edema or cyanosis. No clubbing. MUSCULOSKELETAL: No acute joint deformities or swelling SKIN: There are no significant rashes or ecchymosis NEUROPSYCHIATRIC: The patient is alert and oriented x3. Appears to be in a good mood. No tremors or rigidity noted. Data : 03/20/22 17:51 03/20/22 17:51 Other Labs: Laboratory Last Values WBC 5.7 10^3/uL (4.0-10.0) 03/20/22 17:51 RBC 4.45 10^6/uL (4.1-5.3) 03/20/22 17:51 Hgb 12.4 g/dL (11.5-15.3) 03/20/22 17:51 Hct 37.1 % (37.0-47.0) 03/20/22 17:51 MCV 83.4 fl (81-99) 03/20/22 17:51 MCH 27.9 pg (28.0-34.0) L 03/20/22 17:51 MCHC 33.4 g/dL (30.0-36.0) 03/20/22 17:51 RDW 13.4 % (12.1-15.1) 03/20/22 17:51 Plt Count 220 10^3/cmm (130-400) 03/20/22 17:51 MPV 10.3 fL (7.4-10.4) 03/20/22 17:51 Neut % (Auto) 50.2 % 03/20/22 17:51 Lymph % (Auto) 33.6 % 03/20/22 17:51 [place] % (Auto) 11.4 % 03/20/22 17:51 Eos % (Auto) 4.4 % 03/20/22 17:51 Baso % (Auto) 0.2 % 03/20/22 17:51 Neut # (Auto) 2.86 10^3/uL (1.8-7.7) 03/20/22 17:51 Lymph # (Auto) 1.9 10^3/uL (0.8-4.8) 03/20/22 17:51 [place] # (Auto) 0.7 10^3/uL (0.2-0.9) 03/20/22 17:51 Eos # (Auto) 0.3 10^3/uL (0.0-0.8) 03/20/22 17:51 Baso # (Auto) 0.0 10^3/uL (0.0-0.1) 03/20/22 17:51 Nucleated RBC % (auto) 0 % 03/20/22 17:51 Nucleated RBCs # 0.0 /100WBC 03/20/22 17:51 D-Dimer 2.52 ug/mIFEU (0-0.59) H 03/20/22 17:03 Sodium 139 mmol/L (136-145) 03/20/22 17:51 Potassium 4.0 mmol/L (3.5-5.1) 03/20/22 17:51 Chloride 101 mmol/L (98-107) 03/20/22 17:51 Carbon Dioxide 26 mmol/L (22-29) 03/20/22 17:51 Anion Gap 16.0 (5-19) 03/20/22 17:51 BUN 16 mg/dL (6-20) 03/20/22 17:51 Creatinine 0.6 mg/dL (0.5-0.9) 03/20/22 17:51 GFR Calculation 103.0 mL/min (90-130) 03/20/22 17:51 Glucose 111 mg/dL (65-115) 03/20/22 17:51 Calculated Osmolality 290 mOsm/kg (285-295) 03/20/22 17:51 Calcium 9.6 mg/dL (8.5-10.5) 03/20/22 17:51 Troponin T Baseline 6 ng/L (0-10) 03/20/22 17:51 Echo: My impression: Echocardiogram on 01/14/2022 ?Normal left ventricular size and systolic function, EF 55 %. No ?regional wall motion abnormalities. ? Segmental wall motion analysis is difficult because of the poor ?ultrasonic window. ?Minimally thickened mitral valve. trace to mild mitral valve ?regurgitation. ?Normal cardiac chamber sizes. ?there is no pericardial effusion. ?There are no intracardiac masses. ?No similar previous studies are available for comparison Myocardial perfusion imaging: My impression: Done on 02/18/2022 1. No significant EKG changes with the LexiScan infusion 2. No LexiScan induced chest pain or cardiac arrhythmia 3. Normal blood pressure and heart rate response 4. Sestamibi/sestamibi perfusion scan pending; see separate report. MPI--- 1.? Myocardial perfusion imaging revealing uniform myocardial tracer uptake ?with no significant perfusion normalities. ?2.? Normal LV ejection fraction 70%. ?3.? Segmental wall motion analysis revealing no gross wall motion ?abnormalities. ?4.? Normal LV volume. ?5.? Elevated transient ischemic dilatation ratio (1.32 )may suggest endocardial ?ischemia.? The positive predictive value of this finding is limited.? Clinical ?correlation is recommended. EKG 1: My Interpretation: The EKG revealed sinus rhythm with a heart rate of 98 bpm. I do ventricular conduction delay. Possible left atrial enlargement. EKG computer-generated impression: Chest X-Ray 03/20/22 16:38 IMPRESSION: No acute findings. A&P Assessment and plan (1) Unstable angina: I will start the patient on subcu Lovenox and aspirin. Also we will start her on a low-dose of beta-frank namely metoprolol 12.5 mg p.o. twice daily. Serial cardiac enzymes and EKGs to rule out myocardial infarction. Status: Acute (2) Elevated blood pressure reading: Metoprolol 12.5 mg p.o. twice daily. We will be closely monitoring. Status: Acute (3) Emphysema of lung: Continue on the current measures. Status: Acute (4) Dyslipidemia: ProfileStarted on Lipitor 40 mg p.o. now and daily. The blood in the lab. Status: Acute Plan In view of the patient's ongoing worsening of the symptoms, she requires a cardiac catheterization, to further evaluate her coronary status and decide on further management. This was discussed with the patient in detail. The risk of bleeding, hematoma, vascular injury, myocardial infarction, CVA, renal failure and other concomitant complications were explained in detail. Patient understood this well and consented to proceed. We will keep her n.p.o. after midnight. Plan to do the cardiac catheterization sometime tomorrow. Coding Level of Care Code Acute Suture Winder Hand for Maddyg Fwd History Expanded Problem Focused Exam Detailed Medical Decision Making Moderate Complexity Diagnoses Unstable angina I20.0 Elevated blood pressure reading R03.0 Emphysema of lung J43.9 Dyslipidemia E78.5
[2022-03-20] MEDS: enoxaparin 60 mg/0.6 mL Syringe 50 MG SUBCUT (20:20)
[2022-03-20] MEDS: nitroglycerin 1 gm/inch oint Pkt 0.5 INCH TOPICAL (20:21)
[2022-03-20] MEDS: sodium chloride 0.9% 1,000 ML 75 ML IV (20:21)
[2022-03-20] MEDS: ondansetron 2 mg/ML SDV 2 mL 4 MG IVP (21:18)
[2022-03-20 21:25] LABS: Chol HDL Ratio 2.88 mg/dL (0.0-4.40); Cholesterol 239 mg/dL (0-200); HDL Cholesterol 83 mg/dL (60-100); LDL Cholesterol Calculated 142 mg/dL (50-129); LDL HDL Ratio 1.71 RATIO (0.00-3.22); Triglycerides 71 mg/dL (0-150)
--- NOTE | 2022-03-20 22:00 | ECG_ITS ---
[facility] Test Date: 2022-03-20 Pat Name: Radha Maguire Department: Room: 276 Gender: Female Records Management Technician: : 1965 Requested By: Massimo Langford Order Number: [id number] Emily MD: Meño Neff M.D. Measurements Intervals [place] Rate: 100 P: 67 ID: [id number] QRS: 62 QRSD: 82 T: 65 QT: 338 QTc: 437 Interpretive Statements SINUS TACHYCARDIA POSSIBLE LEFT ATRIAL ENLARGEMENT [-0.1mV P-WAVE IN V1/V2] POSSIBLE RIGHT VENTRICULAR CONDUCTION DELAY [RSR (QR) IN V1/V2] ABNORMAL RHYTHM ECG Compared to ECG 03/20/2022 16:47:15 Sinus rhythm no longer present Electronically Signed On 03-20-2022 22:58:18 CDT by Meño Neff M.D. [email or web address]
[2022-03-21] VITALS (59 sets, daily range): BP systolic 110–127; BP diastolic 61–76; PULSE 78–119; RESP 17–29; TEMP 37.3–37.5; O2SAT 94–98
[2022-03-21 00:46] LABS: Troponin 5 2HR Delta 0 ABS# (0-10)
[2022-03-21] MEDS: morphine 4 mg/mL SDV 1 mL IVP ×2 (01:01→05:24)
[2022-03-21] MEDS: ALPRAZolam 0.5 mg Tablet PO (01:03)
[2022-03-21] MEDS: nitroglycerin 1 gm/inch oint Pkt 0.5 INCH TOPICAL ×2 (01:03→08:47)
[2022-03-21 02:38] LABS: Basophils % 0.1 %; Eosinophils % 0.3 %; Hematocrit 34.8 % (37.0-47.0); Lymphocytes % 13.3 %; Mean Corpuscular HGB Conc 31.6 g/dL (30.0-36.0); Mean Corpuscular Volume 85.5 fl (81-99); Mean Platelet Volume 10.8 fL (7.4-10.4); Monocytes # 0.5 10^3/uL (0.2-0.9); Monocytes % 6.1 %; Neutrophils # 5.86 10^3/uL (1.8-7.7); Neutrophils % 80.1 %; Nucleated Red Blood Cells % 0 %; Platelet Count 201 10^3/cmm (130-400); Red Blood Count 4.07 10^6/uL (4.1-5.3); Red Cell Distribution Width 13.5 % (12.1-15.1); White Blood Count 7.3 10^3/uL (4.0-10.0)
[2022-03-21 03:02] LABS: Troponin 5 6HR 6.26 ng/L (0-10)
[2022-03-21 03:10] LABS: Anion Gap 14.3 (5-19); Blood Urea Nitrogen 15 mg/dL (6-20); Calcium 9.2 mg/dL (8.5-10.5); Carbon Dioxide 25 mmol/L (22-29); Chloride 104 mmol/L (98-107); Glomerular Filtration Rate 86.2 mL/min (90-130); Glucose 125 mg/dL (65-115); Magnesium 1.8 mg/dL (1.7-2.3); Osmolality Calculated 290 mOsm/kg (285-295); Potassium 4.3 mmol/L (3.5-5.1); Sodium 139 mmol/L (136-145)
[2022-03-21 03:20] LABS: Troponin 5 6HR Delta 0.26 ng/L (0-12)
[2022-03-21] MEDS: ondansetron 2 mg/ML SDV 2 mL 4 MG IVP (05:23)
[2022-03-21] MEDS: pantoprazole DR 40 mg Tablet PO (05:23)
--- NOTE | 2022-03-21 06:10 | PM.PN ---
Subjective Subjective: Patient is scheduled to go for an angiogram Rep response was called when patient had vasovagal syncope while taking her pills this morning Sinus pause was detected on telemetry Her heart rate and blood pressure improved as soon as she was repositioned She did not lose pulse, no CPR was initiated Patient was back to her baseline She has been having emesis since last night She is still complaining of dull chest pain After rep response I did remove her Nitropaste from her chest I gave her extra dose of Zofran 8 mg, Dr. Neff also evaluated her at the bedside, KUB did not show any signs obstruction, excessive stool burden, she had 1 bowel movement yesterday Patient did agree with proceeding with angiogram today Added scopolamine patch Vitals/I&O/Wt Last Vital Signs Temp 98.7 F 03/20/22 16:22 Pulse 94 03/20/22 22:17 Resp 18 03/21/22 05:24 BP 157/94 03/20/22 19:24 Pulse Ox 95 03/21/22 01:01 O2 Del Method 03/20/22 22:17 03/20/22 03/20/22 03/21/22 14:59 22:59 06:59 Intake Total 100 / 100 0 / 100 Output Total 300 / 300 Balance 100 / 100 -300 / -200 Weight last 48 hrs Weight 49.442 kg Physical Exam Narrative: Very pleasant cooperative female Thin, lean person in distress because of active emesis Complaining of dull chest pain 7-8 intensity Euvolemic S1, S2 Saturating well on room air Nonfocal neuro exam Abdomen soft Awake and alert lethargic Data : 03/21/22 02:10 03/21/22 02:10 A&P Assessment and plan (1) Dyslipidemia: Status: Acute (2) Elevated blood pressure reading: Status: Acute (3) Unstable angina: Status: Acute (4) Emphysema of lung: Status: Acute Plan Unstable angina Angiogram today Abnormal cardiac stress test Echo showed preserved ejection fraction D-dimer was high CTA ruled out PE N.p.o. Hypertensive urgency : Added metoprolol succinate and lisinopril, will add chlorthalidone as well Dyslipidemia Currently on atorvastatin high-dose DNR/DNI DVT prophylaxis covered with therapeutic Lovenox After rapid response I have added scopolamine patch, gave her 8 mg of Zofran For recurrent nausea vomiting requested KUB which did not show classic stool burden, avoid enema for now she could only take half of mag citrate Dr. Neff evaluated at the bedside, N.p.o. for now Attestations Medical Necessity Statement*: Continue medical management Time Spent in Patient Care: 30 Coding Level of Care Code Acute Premium Note Interest Calculator Clerk for Chg Fwd Diagnoses Dyslipidemia E78.5 Elevated blood pressure reading R03.0 Unstable angina I20.0 Emphysema of lung J43.9
--- NOTE | 2022-03-21 09:40 | XR_ITS ---
WS: [id number] KUB, AP view, 03/21/2022 Clinical Data: recurrent vomiting Comparison: KUB, 01/16/2018. Findings: No abnormal intraabdominal masses are seen. There is a 1.0 cm calcification in the right upper quadra nt unchanged. There is no dilatated small bowel or evidence of obstruction. There are surgical clips in the upper abdomen and tubal ligation clips in the pelvis. There is contra st material in the bladder. There is a large amount of fecal material throughout the colon. XR/XR KUB [id number] Impression: 1. Postsurgical changes in upper abdomen. 2. Large amount of fecal material in the colon.
--- NOTE | 2022-03-21 10:04 | XACV_ITS ---
Exam Room: [facility] Ht: 160 cm Wt: 49 kg BSA: 1.48 m2 Gender: Female : 1965 Any Known Allergies: Other Exam Priority: Routine Procedure(s): Procedure Description: Diagnostic procedure Procedure Description: Left Heart Catheterization Procedure Description: Coronary Angiography Tawanda ESCAMILLA; Diagnostic Cath Status: Elective Diagnostic Findings * The left main is a medium caliber vessel with no significant stenotic lesions. * The left anterior descending artery is a medium caliber vessel which appears to wrap around the LV apex minimally. The mid LAD was found to have around 30 to 40% diffuse irregular narrowing. The distal artery also was found to have some intimal narrowing. No significant stenotic lesions were noted. The first 2 diagonal branches found to have around 40 to 50% tubular narrowing, involving the ostium.. * The left circumflex artery is a medium caliber vessel which appears to have around 20 to 30% narrowing proximally. Then the artery appears to bifurcate. No other significant lesions were noted. * The right coronary artery is a medium caliber dominant vessel which was found to have 20 to 30% irregular narrowing in the proximal segment. Intimal irregularities are noted in the PDA and the PLV branches. No significant stenotic lesions were noted. Conclusions 1. 57-year-old white female with multiple factors for coronary artery disease, presenting with increasing episodes of chest pains. She had a Myocardial perfusion imaging which revealed elevated transient ischemic dilatation ratio. In view of the worsening of her symptoms, a cardiac catheterization was recommended. She underwent left heart catheterization with left and right coronary angiogram today. The findings are as follows. 2. Mild diffuse coronary artery disease. LVEDP of 17 mmHg. Diagnostic RX Recommendation: medical therapy and/or counseling LV EDP: 17 mmHg Left Ventriculography Findings: * LV gram was not performed because of the limitations on the dye usage. The LVEDP was 17 mmHg. Pressures Phase:Rest AO : 122 / 70 ( 91 ) @ 3:34:00 PM 122 / 70 ( 92 ) @ 3:34:00 PM LV : 140 / 9 / 17 @ 3:34:00 PM 140 / 9 / 16 @ 3:34:00 PM Valves Phase:DefaultPhase AV : 18.0 @ 2:42:16 PM AV Mean Gradient: 13.0 @ 2:42:16 PM Clinical Evaluation EBL: 5mL-10mL Procedural Details Admit Source: In Patient. Pre-Procedure Time Out. Identified patient by full name and date of as verbalized by the patient/guarantor. Does the consent match the physician's order: Yes. Accurate & Complete Informed Consent: Yes. Inpatient/Outpatient History & Physical on Chart: Yes. If H&P is completed, is and addenduem needed: No; If yes, is the addendum complete: N/A. Visualize and Verify Site with Patient/Guarantor: N/A. Relevant Radiology Images available: N/A. Pre-op teaching completed and patient verbalized understanding. The risks, benefits, and alternatives of sedation and/or procedure were discussed by physician. The patient agrees to continue. Procedure started. IV Site on Arrival: 20 gauge in the right anticubital. IV Site on Arrival: 20 gauge in the left EJ. IV Fluids: 0.9% NaCl at KVO. 500 mL infused prior to supervisor dental laboratory. Pre Procedural Pulses: bilateral radial was 3+. Oxygen started at 2liters/min via nasal canula. right radial was prepped with chloroprep then draped in the usual sterile fashion. right groin was prepped with chloroprep then draped in the usual sterile fashion. Physician notified. Baseline sample Acquired. HR: 112 BPM. Physician arrived. [facility] Clinical Fraility Score: 3: Managing Well. 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 Chest Pain Symptom Assessment: Atypical Angina. Current diagnosis: Chest Pain, Abnormal stress test. Physician scrubbed in. Immediate Pre-Procedure Time Out. Correct Patient: Yes; Correct Procedure: Yes; Correct Site: Yes; Correct Patient Position: Yes; Correct Supplies: Yes; Dried Flammable Prep: Yes; Blood Products Available: No;. Lidocaine 1% infiltrated to the right radial. Arterial access obtained. A 5 yi Juan catheter in over wire. Wire out. Ron Masters RN, LEADER WRITER was relieved by Susy Cordova RN as monitoring person. Multiple views taken of left coronary artery. Catheter redirected to the RCA. Catheter removed over the standard wire. A 5 yi JR4 catheter in over wire. Wire out. Multiple views taken of right coronary artery. EDP Sample taken: LV 140/9,17; HR: 109 BPM; SpO2: 98%. Pullback taken: LV 140/9,16; AO 122/70(91); Mean: 13mmHg, Peak to Peak: 18mmHg, SEP: 28sec/min; HR: 111 BPM; SpO2: 98%. Catheter out. Total IV fluids: 200 mL. Medication's Wasted: Nitro = 49.6 mg. Medication's Wasted: Heparin = 2000 unit. Post-op diagnosis: Moderate CAD. Complications: None. Estimated blood loss: 5mL-10mL. Responsiveness - Normal response to verbal stimuli; alert and oriented, PERRLA. Airway - Unaffected, no intervention required; spontaneous ventilation. Circulation: W/N/L, pulses unchanged. Nausea/Vomiting: N/A. Procedure completed. PERRLA. Strong, equal hand chemists bilaterally. No VTE prophylaxis required. Post Procedure: Pulses reassessed and unchanged. A TR Band was successful obtaining hemostatsis at the Radial artery insertion site. Patient transferred by bed [facility]. Vital chart was stopped. Access Site Site: Radial artery Sheath Size: 6 Fr Hemostasis Method: TR Band Hemostasis Success: Successful Procedure Medications Start: 2:17 PM Stop: 2:17 PM Medication: Versed Amount: 1 mg Route: I.V. Start: 2:20 PM Stop: 2:20 PM Medication: 0.9% Saline Amount: 200 ml Route: I.V. bolus Start: 2:22 PM Stop: 2:22 PM Medication: Nitrogylcerin Amount: 200 mcg Route: I.A. Start: 2:24 PM Stop: 2:24 PM Medication: Heparin Amount: 4000 units Route: I.V. Start: 2:25 PM Stop: 2:25 PM Medication: Versed Amount: 1 mg Route: I.V. Start: 2:29 PM Stop: 2:29 PM Medication: Nitrogylcerin Amount: 200 mcg Route: I.A. I, the attending physician, have reviewed and verified all procedure medications. Yes, all medications given per verbal order History/Risk Factors Hypertension: Yes Dyslipidemia: Yes Peripheral Arterial Disease (PAD): No Myocardial Infarction (MS): No Obesity: No Renal Disease: No Tobacco Use: Former Prior Interventions PCI: No CABG: No Valve Surgery: No Report Signatures Finalized by Dr Meño Neff MD [facility] on 03/21/2022 04:10 PM
[2022-03-21] MEDS: metoclopramide 5 mg/mL SDV 2 mL 10 MG IVP (10:27)
[2022-03-21] MEDS: sodium chloride 0.9% 1,000 ML 75 ML IV (10:27)
[2022-03-21 10:58] LABS: Estmated Average Glucose 100; Hemoglobin A1C 5.1 % (4.0-6.0)
[2022-03-21] MEDS: sennosides-docusate Tablet 1 TAB PO (11:23)
[2022-03-21] MEDS: magnesium hydroxide 30 mL UDC 15 ML PO (11:23)
[2022-03-21] MEDS: enoxaparin 60 mg/0.6 mL Syringe 50 MG SUBCUT ×2 (11:40→23:31)
--- NOTE | 2022-03-21 11:49 | PC.NURSE ---
Alerted Rapid response Team Pt started to get nauseous and vomit. Noted pt HR is in the 30s and has 8 sec pause. Pt stated she is dizzy and does not feel good. Pt is repositioned to her side. MEAT AND SEAFOOD CLERK called. Airway mgt provided, EKG taken, BG-156, Zofran 8 mg given. nitro paste removed. BP-137/77, Pt is alert, awake, HR increased to 110s to 120s, rr-27. CXR ordered. Will keep monitoring.
--- NOTE | 2022-03-21 11:54 | XRR_ITS ---
PROCEDURE INFORMATION: Exam: XR Chest Exam date and time: 03/21/2022 12:07 PM Age: 57 years old Clinical indication: Other: Rapid response TECHNIQUE: Imaging protocol: Radiologic exam of the chest. Views: 1 view. COMPARISON: CR XR chest 1V portable [id number] 03/20/2022 4:47 PM FINDINGS: Lungs: Unremarkable. No consolidation. Pleural spaces: Unremarkable. No pleural effusion. No pneumothorax. Heart/Mediastinum: Unremarkable. No cardiomegaly. Bones/joints: Unremarkable. XR/XR chest 1V portable [id number] IMPRESSION: No acute findings.
[2022-03-21 11:55] LABS: Glucose Point of Care 156 mg/dL (70-110)
--- NOTE | 2022-03-21 12:00 | PC.NURSE ---
Hold Enema Administration Verbal order from Dr Sotelo to hold the Enema due to vasovagal response and possible cardiac cath this afternoon.
[2022-03-21] MEDS: ondansetron 2 mg/ML SDV 2 mL 8 MG IVP (12:38)
--- NOTE | 2022-03-21 12:41 | PC.NURSE ---
pt had another episode nausea and vomiting then sinus pause/sinus bradycardia HR-28, Sinus pause ranges from 5 sec to 9 sec. for a short while then HR burr picker to 120s. Pt is alert, oriented but look weak and tired. Dr katz and dr reaves are both notified again. will keep monitoring.
--- NOTE | 2022-03-21 13:05 | PM.PN ---
Subjective Subjective: The patient has been having nausea and vomiting through the night. She also was having chest pain intermittently, 6-7 over 10 intensity. The EKG did not reveal any new changes. Cardiac enzymes are negative. Vitals/I&O/Wt Last Vital Signs Temp 98.7 F 03/20/22 16:22 Pulse 96 03/21/22 09:43 Resp 22 H 03/21/22 09:43 BP 123/69 03/21/22 08:48 Pulse Ox 94 03/21/22 09:43 O2 Del Method 03/21/22 09:43 03/20/22 03/21/22 03/21/22 22:59 06:59 14:59 Intake Total 100 / 100 0 / 100 1000 / 1000 Output Total 300 / 300 Balance 100 / 100 -300 / -200 1000 / 1000 Weight last 48 hrs Weight 109 lb Physical Exam Narrative: GENERAL: The patient is alert and oriented times three. Not in any acute distress. HEENT: No significant pallor, icterus or lymphadenopathy.Oral cavity: There are no mucous membrane lesions. NECK: Trachea appears to be central. No masses noted. No JVD or thyromegaly appreciated. RESPIRATORY: Chest is symmetrical. No intercostals muscle retraction or any accessory muscle activation. There is no chest wall tenderness. Breath sounds are heard bilaterally. No rales or rhonchi heard. No evidence of any consolidation. BREASTS: Deferred. HEART: The heart sounds are normal. No S3 or S4. No significant murmurs. No pericardial rub ABDOMEN: No vessel pulsations or distention. No tenderness. No organomegaly appreciated. Bowel sounds are normally heard. : Deferred. RECTAL: Deferred. LYMPHATIC: No lymphadenopathy noted in the neck. EXTREMITIES: No edema or cyanosis. No clubbing. MUSCULOSKELETAL: No acute joint deformities or swelling SKIN: There are no significant rashes or ecchymosis NEUROPSYCHIATRIC: The patient is alert and oriented x3. Appears to be in a good mood. No tremors or rigidity noted. Data : 03/21/22 02:10 03/21/22 02:10 Other Labs: Laboratory Last Values WBC 7.3 10^3/uL (4.0-10.0) 03/21/22 02:10 RBC 4.07 10^6/uL (4.1-5.3) L 03/21/22 02:10 Hgb 11.0 g/dL (11.5-15.3) L 03/21/22 02:10 Hct 34.8 % (37.0-47.0) L 03/21/22 02:10 MCV 85.5 fl (81-99) 03/21/22 02:10 MCH 27.0 pg (28.0-34.0) L 03/21/22 02:10 MCHC 31.6 g/dL (30.0-36.0) D 03/21/22 02:10 RDW 13.5 % (12.1-15.1) 03/21/22 02:10 Plt Count 201 10^3/cmm (130-400) 03/21/22 02:10 MPV 10.8 fL (7.4-10.4) H 03/21/22 02:10 Neut % (Auto) 80.1 % 03/21/22 02:10 Lymph % (Auto) 13.3 % 03/21/22 02:10 [place] % (Auto) 6.1 % 03/21/22 02:10 Eos % (Auto) 0.3 % 03/21/22 02:10 Baso % (Auto) 0.1 % 03/21/22 02:10 Neut # (Auto) 5.86 10^3/uL (1.8-7.7) 03/21/22 02:10 Lymph # (Auto) 1.0 10^3/uL (0.8-4.8) 03/21/22 02:10 [place] # (Auto) 0.5 10^3/uL (0.2-0.9) 03/21/22 02:10 Eos # (Auto) 0.0 10^3/uL (0.0-0.8) 03/21/22 02:10 Baso # (Auto) 0.0 10^3/uL (0.0-0.1) 03/21/22 02:10 Nucleated RBC % (auto) 0 % 03/21/22 02:10 Nucleated RBCs # 0.0 /100WBC 03/21/22 02:10 D-Dimer 2.52 ug/mIFEU (0-0.59) H 03/20/22 17:03 Sodium 139 mmol/L (136-145) 03/21/22 02:10 Potassium 4.3 mmol/L (3.5-5.1) 03/21/22 02:10 Chloride 104 mmol/L (98-107) 03/21/22 02:10 Carbon Dioxide 25 mmol/L (22-29) 03/21/22 02:10 Anion Gap 14.3 (5-19) 03/21/22 02:10 BUN 15 mg/dL (6-20) 03/21/22 02:10 Creatinine 0.7 mg/dL (0.5-0.9) 03/21/22 02:10 GFR Calculation 86.2 mL/min (90-130) L 03/21/22 02:10 Glucose 125 mg/dL (65-115) H 03/21/22 02:10 POC Glucose 156 mg/dL (70-110) H 03/21/22 11:51 Estimat Average Glucose 100 03/21/22 02:10 Hemoglobin A1c 5.1 % (4.0-6.0) 03/21/22 02:10 Calculated Osmolality 290 mOsm/kg (285-295) 03/21/22 02:10 Calcium 9.2 mg/dL (8.5-10.5) 03/21/22 02:10 Magnesium 1.8 mg/dL (1.7-2.3) 03/21/22 02:10 Troponin T Baseline 6 ng/L (0-10) 03/20/22 17:51 Troponin T 120 Minute 6.00 ng/L (0-10) 03/20/22 20:47 Delta Troponin T 0 ABS# (0-10) 03/20/22 20:47 Troponin T Hi Sens 6Hr 6.26 ng/L (0-10) 03/20/22 02:10 Troponin T Hi Sens 6Hr Delta 0.26 ng/L (0-12) 03/20/22 02:10 Triglycerides 71 mg/dL (0-150) 03/20/22 20:47 Cholesterol 239 mg/dL (0-200) H 03/20/22 20:47 LDL Cholesterol, Calc 142 mg/dL (50-129) H 03/20/22 20:47 HDL Cholesterol 83 mg/dL (60-100) 03/20/22 20:47 LDL/HDL Ratio 1.71 RATIO (0.00-3.22) 03/20/22 20:47 Cholesterol/HDL Ratio 2.88 mg/dL (0.0-4.40) 03/20/22 20:47 A&P Assessment and plan (1) Nausea and vomiting: Patient has associated chest pain. She also was found to have features of stool impaction/constipation. In view of the ongoing chest pain, she requires a cardiac arrest vision is still as possible. Event nausea improved with medications, we may consider doing the cardiac catheterization today. Patient is wanting to go ahead with the angiogram because of the ongoing chest pains. Status: Acute (2) Unstable angina: May continue on the current medications. Status: Acute (3) Elevated blood pressure reading: Blood pressure seems to be in the normal range. We will continue on the current medications. Status: Acute (4) Emphysema of lung: Continue on the current measures. Status: Acute (5) Dyslipidemia: May continue on the Lipitor. Status: Acute Plan Possible cardiac catheterization today. Based on the results, further recommendations will be made. Attestations Medical Necessity Statement*: Patient requires continued hospital stay for close monitoring and further management Coding Level of Care Code Acute Certified Welding Inspector for Chg Fwd History Expanded Problem Focused Exam Detailed Medical Decision Making Moderate Complexity Diagnoses Nausea and vomiting R11.2 Unstable angina I20.0 Elevated blood pressure reading R03.0 Emphysema of lung J43.9 Dyslipidemia E78.5
--- NOTE | 2022-03-21 13:19 | ECG_ITS ---
[facility] Test Date: 2022-03-21 Pat Name: Radha Maguire Department: Room: 276 Gender: Female Director Building: : 1965 Requested By: David Sotelo Order Number: [id number] Emily MD: Shar Lou M.D. Measurements Intervals [place] Rate: 110 P: 65 RI: 147 QRS: 58 QRSD: 89 T: 44 QT: 310 QTc: 420 Interpretive Statements SINUS TACHYCARDIA POSSIBLE LEFT ATRIAL ENLARGEMENT [-0.1mV P-WAVE IN V1/V2] POSSIBLE RIGHT VENTRICULAR CONDUCTION DELAY [RSR (QR) IN V1/V2] ABNORMAL RHYTHM ECG Compared to ECG 03/20/2022 22:00:58 No significant changes Electronically Signed On 03-21-2022 17:50:08 CDT by Shar Lou M.D. [email or web address]
[2022-03-21] MEDS: scopolamine 1.5 Patch 1 PATCH TRANSDERMA (13:41)
[2022-03-21] MEDS: sodium chloride 0.9% 250 ML IV (13:43)
--- NOTE | 2022-03-21 13:43 | USCV_ITS ---
Radha Maguire Age: 57 Gender: F : 1965 Exam Date: 03/21/2022 15:30 Ordering Phys: David Sotelo MD Technologist: RAVINDRA Exam Location: [facility] [place] Indication: CHEST PAIN, LEG CRAMPS HISTORY: Lower extremity pain. PROCEDURES: Venous duplex imaging was performed in bilateral lower extremities. The following venous structures were evaluated: common femoral vein, profunda vein, proximal portion of the greater saphenous vein, superficial femoral vein, and the popliteal vein. In addition, the posterior tibial and peroneal trunk were evaluated. Serial compression, augmentation maneuvers, and spectral Doppler flow evaluation were performed. FINDINGS: No evidence of DVT seen in any vessel visualized at this time. CONCLUSIONS No evidence of right lower extremity DVT. No evidence of left lower extremity DVT. Kennedy Christy MD (Electronically Signed) Final Date: 21 March 2022 16:57 S
--- NOTE | 2022-03-21 14:00 | PC.NURSE ---
Received orders from Dr Neff verbally to give pt 250 bolus of NS and increase fluids to 100 ml/hr.
--- NOTE | 2022-03-21 14:10 | W.PM.OPSUD ---
Surgery/Procedure H&P Update DATE OF PROCEDURE: March 21, 2022 DATE H&P PERFORMED: 03/20/22 H&P UPDATE INFORMATION: I have reviewed H&P completed within last 30 days, I have examined patient prior to procedure and No changes to prior documentation PREOP DIAGNOSIS: possible ASHD/ unstable angina PRIMARY INDICATION FOR PROCEDURE: Chest pain/ abnormal MPI PLANNED PROCEDURE: Operation Date: 03/21/22 12:00 Proposed Procedures p Cardiac Catheterization(Left) - Meño Neff MD PATIENT REASSESSED PRIOR TO SEDATION, WITH NO CHANGE NOTED: Yes PHYSICAL EXAM: alert, oriented x 3, clear to auscultation bilaterally and regular rate & rhythm AIRWAY EVAL/ANESTHESIA PLAN: normal airway, see other exam findings, ASA II, Monitored Anesthesia, Local Anesthesia, Risks, benefits & alternatives of sedation and/or procedure discussed and Patient agrees to continue as planned
--- NOTE | 2022-03-21 17:35 | PC.NURSE ---
Pt had another episode of Sinus pause and Sinus bradycardia Pt started to get nauseate again while giving reglan. Sinus pause around 10 sec then HR goes back up to 130s then ranges from 90s to 110s, Sinus Tach. Dr Neff and Dr Sotelo are both notified via phone again and Dr Sotelo order to transfer pt to ICU to closely monitor pt. Pt and DPOA notified and they both verbalizes understanding.
[2022-03-21] MEDS: metoclopramide 5 mg/mL SDV 2 mL IVP (18:38)
--- NOTE | 2022-03-21 21:02 | PC.NURSE ---
Patient transferred to ICU. Report given to REMINGTON Amor. TR band to right wrist remains in place at this time. No s/s of bleeding or hematoma formation observed. Patient denies pain to site.
--- NOTE | 2022-03-21 23:29 | PC.NURSE ---
TR band removed. No hematoma noted, pressure dressing applied, pt tolerated well.
[2022-03-22] VITALS (152 sets, daily range): BP systolic 113–158; BP diastolic 64–108; PULSE 63–110; RESP 13–30; O2SAT 93–100
[2022-03-22 04:14] LABS: Basophils % 0.2 %; Eosinophils % 0.2 %; Hematocrit 34.4 % (37.0-47.0); Hemoglobin 10.8 g/dL (11.5-15.3); Lymphocytes # 1.1 10^3/uL (0.8-4.8); Lymphocytes % 17.3 %; Mean Corpuscular HGB Conc 31.4 g/dL (30.0-36.0); Mean Corpuscular Hemoglobin 27.7 pg (28.0-34.0); Mean Corpuscular Volume 88.2 fl (81-99); Mean Platelet Volume 10.9 fL (7.4-10.4); Monocytes # 0.6 10^3/uL (0.2-0.9); Neutrophils # 4.64 10^3/uL (1.8-7.7); Nucleated Red Blood Cells % 0 %; Platelet Count 173 10^3/cmm (130-400); Red Cell Distribution Width 13.8 % (12.1-15.1); White Blood Count 6.4 10^3/uL (4.0-10.0)
[2022-03-22 04:38] LABS: Anion Gap 12.9 (5-19); Blood Urea Nitrogen 6 mg/dL (6-20); Calcium 8.6 mg/dL (8.5-10.5); Carbon Dioxide 25 mmol/L (22-29); Chloride 107 mmol/L (98-107); Glomerular Filtration Rate 127.2 mL/min (90-130); Glucose 110 mg/dL (65-115); Magnesium 2.1 mg/dL (1.7-2.3); Osmolality Calculated 290 mOsm/kg (285-295); Potassium 3.9 mmol/L (3.5-5.1); Sodium 141 mmol/L (136-145)
[2022-03-22] MEDS: levothyroxine 25 mcg Tablet PO (05:53)
[2022-03-22] MEDS: pantoprazole DR 40 mg Tablet PO (05:53)
[2022-03-22] MEDS: nitroglycerin 1 gm/inch oint Pkt 0.5 INCH TOPICAL ×2 (09:10→15:12)
--- NOTE | 2022-03-22 12:00 | PM.PN ---
Subjective Subjective: Patient underwent LHC yesterday and was found to have mild diffuse CAD. She was transfererd to ICU episodes of bradycardia and pauses noted in setting of nausea and retching last night. Patient otherwise in in sinus rhythm/ST Medications: Reviewed: Yes Vitals/I&O/Wt Last Vital Signs Temp 99.1 F 03/21/22 20:55 Pulse 80 03/22/22 08:00 Resp 16 03/22/22 08:00 BP 119/73 03/22/22 04:10 Pulse Ox 98 03/22/22 08:00 O2 Del Method 03/22/22 08:00 03/21/22 03/22/22 03/22/22 22:59 06:59 14:59 Intake Total 876.25 / 2280.00 Output Total 400 / 400 200 / 600 225 / 225 Balance -400 / 1003.75 676.25 / 1680.00 -225 / -225 Weight last 48 hrs Weight 109 lb Physical Exam Narrative: Gen: ABAN, laying in bed NAD Neck: No JVD RS: CTAB/L, No wheezes or rales CVS: S1, S2, regular. No murnur, rub or gallop Ext: No edema, cyanosis, Right wrist with 2+ radial. No bruising or hematoma LINEN WORKER: AAOx3, No FND Data : 03/22/22 03:52 03/22/22 03:52 A&P Assessment and plan (1) Chest pain: Mild diffuse CAD on LHC -resolved Status: Acute (2) Nausea and vomiting: Management as per primary team Status: Acute (3) HTN (hypertension): Status: Acute (4) Emphysema of lung: Continue on the current measures. Status: Acute (5) Dyslipidemia: May continue on the Lipitor. Status: Acute Plan High grade AV block in setting of N/V: continue to monitor closely on telemetry GERD Hypothyroidism Attestations Medical Necessity Statement*: As per primary team Coding Level of Care Code Acute Fender Mechanic Apprentice for Chg Fwd Diagnoses Chest pain R07.9 Nausea and vomiting R11.2 HTN (hypertension) I10 Emphysema of lung J43.9 Dyslipidemia E78.5
[2022-03-22] MEDS: enoxaparin 60 mg/0.6 mL Syringe 50 MG SUBCUT (12:53)
--- NOTE | 2022-03-22 14:00 | PM.PN ---
Subjective Subjective: Patient might need a pacemaker, high degree AV block, multiple significant pauses noted overnight on telemetry However she has been clinically hemodynamically stable This morning she was not experiencing emesis Vitals/I&O/Wt Last Vital Signs Temp 99.1 F 03/21/22 20:55 Pulse 80 03/22/22 08:00 Resp 16 03/22/22 08:00 BP 119/73 03/22/22 04:10 Pulse Ox 98 03/22/22 08:00 O2 Del Method 03/22/22 08:00 03/21/22 03/22/22 03/22/22 22:59 06:59 14:59 Intake Total 876.25 / 2280.00 Output Total 400 / 400 200 / 600 225 / 225 Balance -400 / 1003.75 676.25 / 1680.00 -225 / -225 Weight last 48 hrs Weight 49.442 kg Physical Exam Narrative: Awake and alert Dehydrated S1, S2 Currently on room air Abdomen soft No signs of edema Awake and alert Nonfocal neuro exam Hemodynamically stable Data : 03/22/22 03:52 03/22/22 03:52 A&P Assessment and plan (1) HTN (hypertension): Status: Acute (2) Nausea and vomiting: Status: Acute (3) Dyslipidemia: Status: Acute (4) Elevated blood pressure reading: Status: Acute (5) Unstable angina: Status: Acute (6) Recurrent vomiting: Status: Acute (7) AV block, 2nd degree: Status: Acute Plan High degree AV block Might need a pacemaker Hemodynamically stable for now Not on beta-frank anymore Mild coronary disease No stents were placed No active chest pain or shortness of breath Retching slightly improved today however not completely gone Monitor QTC intervals I will keep her n.p.o. after midnight tomorrow in case she would require any pacemaker intervention Monitor in ICU for now Magnesium 2.1, potassium 3.9 Appreciate cardiology recommendations Patient is DNR/DNI Attestations Medical Necessity Statement*: Continue ICU management Time Spent in Patient Care: 30 Coding Level of Care Code Acute Heating And Cooling Systems Engineer for Chg Fwd Diagnoses HTN (hypertension) I10 Nausea and vomiting R11.2 Dyslipidemia E78.5 Elevated blood pressure reading R03.0 Unstable angina I20.0 Recurrent vomiting R11.10 AV block, 2nd degree I44.1
--- NOTE | 2022-03-22 15:04 | ECG_ITS ---
[facility] Test Date: 2022-03-22 Pat Name: Radha Maguire Department: Room: ICU12 Gender: Female Rn Allergy: : 1965 Requested By: David Sotelo Order Number: [id number] Emily MD: Shahnaz Stone M.D. Measurements Intervals [place] Rate: 90 P: 64 NH: 123 QRS: 76 QRSD: 94 T: 71 QT: 347 QTc: 427 Interpretive Statements SINUS RHYTHM INCOMPLETE RIGHT BUNDLE BRANCH BLOCK SEPTAL MYOCARDIAL INFARCTION , OF INDETERMINATE AGE Compared to ECG 03/21/2022 11:49:54 Incomplete right bundle-branch block now present Myocardial infarct finding now present Sinus tachycardia no longer present Electronically Signed On 03-24-2022 8:12:07 CDT by Shahanz Stone M.D. [id number]
[2022-03-22] MEDS: ondansetron 2 mg/ML SDV 2 mL 4 MG IVP (15:12)
[2022-03-22] MEDS: dextrose 5%-sod chloride 0.45% 1,000 ML 30 ML IV (15:12)
[2022-03-23] VITALS (151 sets, daily range): BP systolic 105–152; BP diastolic 65–86; PULSE 61–107; RESP 12–34; O2SAT 90–100
[2022-03-23 04:03] LABS: Basophils % 0.4 %; Eosinophils % 0.7 %; Hemoglobin 11.4 g/dL (11.5-15.3); Lymphocytes # 1.5 10^3/uL (0.8-4.8); Lymphocytes % 26.7 %; Mean Corpuscular HGB Conc 31.7 g/dL (30.0-36.0); Mean Corpuscular Hemoglobin 27.4 pg (28.0-34.0); Mean Corpuscular Volume 86.5 fl (81-99); Monocytes # 0.7 10^3/uL (0.2-0.9); Monocytes % 12.4 %; Neutrophils # 3.32 10^3/uL (1.8-7.7); Neutrophils % 59.4 %; Nucleated Red Blood Cells % 0 %; Platelet Count 178 10^3/cmm (130-400); Red Blood Count 4.16 10^6/uL (4.1-5.3); Red Cell Distribution Width 13.4 % (12.1-15.1); White Blood Count 5.6 10^3/uL (4.0-10.0)
[2022-03-23 04:27] LABS: Blood Urea Nitrogen 7 mg/dL (6-20); Calcium 8.8 mg/dL (8.5-10.5); Carbon Dioxide 27 mmol/L (22-29); Chloride 100 mmol/L (98-107); Glomerular Filtration Rate 127.2 mL/min (90-130); Glucose 115 mg/dL (65-115); Osmolality Calculated 285 mOsm/kg (285-295); Sodium 138 mmol/L (136-145)
[2022-03-23 04:46] LABS: Anion Gap 14.8 (5-19); Potassium 3.8 mmol/L (3.5-5.1)
[2022-03-23] MEDS: pantoprazole DR 40 mg Tablet PO (07:30)
[2022-03-23 09:54] LABS: Thyroid Stimulating Hormone 2.51 uIU/mL (0.27-4.20)
--- NOTE | 2022-03-23 11:39 | PM.PN ---
Subjective Subjective: Patient underwent LHC yesterday and was found to have mild diffuse CAD. She was transfererd to ICU day before yesterday for episodes of bradycardia and pauses noted in setting of nausea and retching last night. Patient otherwise in in sinus rhythm/ST One episode of bradycardia yesterday evening when patient was nauseous and one run of NSVT this morning Patient feels better this morning and has started eating Medications: Reviewed: Yes Vitals/I&O/Wt Last Vital Signs Temp 99.1 F 03/21/22 20:55 Pulse 70 03/23/22 08:00 Resp 16 03/23/22 08:00 BP 131/76 03/23/22 03:55 Pulse Ox 98 03/23/22 08:00 O2 Del Method 03/23/22 08:00 03/22/22 03/23/22 03/23/22 22:59 06:59 14:59 Intake Total 801 / 801 Output Total 450 / 875 100 / 975 Balance -450 / -875 -100 / -975 801 / 801 Physical Exam Narrative: Gen: ABAN, laying in bed NAD Neck: No JVD RS: CTAB/L, No wheezes or rales CVS: S1, S2, regular. No murnur, rub or gallop Ext: No edema, cyanosis, Right wrist with 2+ radial. No bruising or hematoma TRAILER TECHNICIAN: AAOx3, No FND Data : 03/23/22 03:40 03/23/22 03:40 A&P Assessment and plan (1) Chest pain: Mild diffuse CAD on LHC -resolved Status: Acute (2) Nausea and vomiting: Management as per primary team Status: Acute (3) HTN (hypertension): Status: Acute (4) Emphysema of lung: Continue on the current measures. Status: Acute (5) Dyslipidemia: May continue on the Lipitor. Status: Acute Plan High grade AV block in setting of N/V: continue to monitor closely on telemetry; no recurrence NSVT : check on magnesium level, will replace if needed; continue to monitor GERD Hypothyroidism Attestations Medical Necessity Statement*: As per primary team Coding Level of Care Code Acute Sustainable Communities Designer for [facility] Fwd Diagnoses Chest pain R07.9 Nausea and vomiting R11.2 HTN (hypertension) I10 Emphysema of lung J43.9 Dyslipidemia E78.5
[2022-03-23 12:18] LABS: Magnesium 2.2 mg/dL (1.7-2.3)
[2022-03-23] MEDS: morphine 4 mg/mL SDV 1 mL IVP ×3 (14:24→23:20)
--- NOTE | 2022-03-23 15:35 | PM.PN ---
Subjective Subjective: Patient is endorsing feeling better No pauses significant pauses noted on telemetry overnight Patient endorsing that she is much better and willing to go home however her sister wont be able to accompany her today Will touch base with cardiology if there is any plan for intervention She might be able to go home by tomorrow Emesis improved She still has scopolamine patch on Vitals/I&O/Wt Last Vital Signs Temp 99.1 F 03/21/22 20:55 Pulse 72 03/23/22 15:01 Resp 20 H 03/23/22 14:24 BP 131/76 03/23/22 03:55 Pulse Ox 99 03/23/22 14:24 O2 Del Method 03/23/22 08:00 03/23/22 03/23/22 03/23/22 06:59 14:59 22:59 Intake Total 1023 / 1023 Output Total 100 / 975 Balance -100 / -975 1023 / 1023 Physical Exam Narrative: Patient is endorsing feeling better Much more awake and alert, good energy today Hemodynamically stable Telemetry did not show significant pauses Patient is clinically and hemodynamically stable Awake and alert Pleasant with her progress Abdomen soft No active emesis Currently on room air Nonfocal neuro exam Data : 03/23/22 03:40 03/23/22 03:40 A&P Assessment and plan (1) AV block, 2nd degree: Status: Acute (2) Recurrent vomiting: Status: Acute (3) HTN (hypertension): Status: Acute (4) Nausea and vomiting: Status: Acute (5) Unstable angina: Status: Acute Plan high Degree AV block:-Intermittent Patient not on AV zenobia blocking agent anymore Normal TSH Hemodynamically stable No active chest pain Mild coronary disease We will discharge her tomorrow with event monitor Currently patient is not experience any emesis Tolerating her diet DNR/DNI Outpatient follow-up with Dr. Tawanda Haile Medical Necessity Statement*: Discharge tomorrow Time Spent in Patient Care: 30 Coding Level of Care Code Acute Canvas Baster Jumpbasting for Chg Fwd Diagnoses AV block, 2nd degree I44.1 Recurrent vomiting R11.10 HTN (hypertension) I10 Nausea and vomiting R11.2 Unstable angina I20.0
[2022-03-23] MEDS: potassium chloride ER 20 mEq Tablet PO (16:09)
[2022-03-23] MEDS: enoxaparin 40 mg/0.4 mL Syringe SUBCUT (16:10)
[2022-03-24] VITALS (58 sets, daily range): BP systolic 103–129; BP diastolic 62–76; PULSE 63–107; RESP 3–29; TEMP 36.6–36.9; O2SAT 92–98
[2022-03-24] MEDS: morphine 4 mg/mL SDV 1 mL IVP ×3 (03:21→11:39)
[2022-03-24] MEDS: atorvastatin 40 mg Tablet PO (08:53)
[2022-03-24] MEDS: pantoprazole DR 40 mg Tablet PO (08:57)
--- NOTE | 2022-03-24 10:10 | PM.PN ---
Subjective Subjective: The events of the weekend are noted. Patient apparently had episodes of nausea, vomiting and bradycardia. Once the nausea and vomiting resolved, she has not had any recurrence of bradycardia or heart blocks. Currently she seems to be doing okay with no specific symptoms. Medications: Medication Review Details: Current Medications Acetaminophen (Acetaminophen 500 Mg Tablet) 500 mg PO Q4H PRN PRN Reason: fever Al Hydrox/Mg Hydrox/Simethicone (Abwt-Xio-Asviobnzj-Heidi 30 Ml Udc) 30 ml PO Q15M PRN PRN Reason: INDIGESTION Albuterol/Ipratropium (Ipratropium-Albuterol 3 Ml Neb) 3 ml INHALATION Q6H PRN PRN Reason: SHORTNESS OF BREATH Alprazolam (Alprazolam 0.5 Mg Tablet) 0.5 mg PO BEDTIME PRN PRN Reason: AGITATION Last Admin: 03/21/22 01:03 Dose: 0.5 mg Aspirin (Aspirin 81 Mg Ec Tablet) 81 mg PO DAILY [facility] Last Admin: 03/24/22 08:52 Dose: Not Given Atorvastatin Calcium (Atorvastatin 40 Mg Tablet) 40 mg PO DAILY [facility] Last Admin: 03/24/22 08:53 Dose: 40 mg Atropine Sulfate (Atropine 1 Mg/Ml Sdv 1 Ml) 0.5 mg IVP PRN PRN PRN Reason: Symptomatic bradycardia Enoxaparin Sodium (Enoxaparin 40 Mg/0.4 Ml Syringe) 40 mg SUBCUT Q24H [facility] Last Admin: 03/23/22 16:10 Dose: 40 mg Dextrose/Sodium Chloride (Dextrose 5%-Sod Chloride 0.45%) 1,000 mls @ 30 mls/hr IV .Q24H [facility] Last Infusion: 03/24/22 07:51 Dose: Infused Levothyroxine Sodium (Levothyroxine 25 Mcg Tablet) 25 mcg PO QAM [facility] Last Admin: 03/24/22 08:52 Dose: Not Given Lisinopril (Lisinopril 5 Mg Tablet) 5 mg PO DAILY [facility] Last Admin: 03/24/22 08:53 Dose: Not Given Magnesium Hydroxide (Magnesium Hydroxide 30 Ml Udc) 30 ml PO DAILY PRN PRN Reason: CONSTIPATION Metoclopramide HCl (Metoclopramide 5 Mg/Ml Sdv 2 Ml) 5 mg IVP Q6H PRN PRN Reason: NAUSEA AND VOMITING Last Admin: 03/21/22 18:38 Dose: 5 mg Morphine Sulfate (Morphine 4 Mg/Ml Sdv 1 Ml) 4 mg IVP Q4H PRN PRN Reason: SEVERE PAIN Last Admin: 03/24/22 07:41 Dose: 4 mg Naloxone HCl (Naloxone 0.4 Mg/Ml Sdv) 0.1 mg IVP Q2M PRN PRN Reason: RESPIRATORY RATE < 8/MIN Nitroglycerin (Nitroglycerin 1 Gm/Inch Oint Pkt) 0.5 inch TOPICAL Q6H [facility] Last Admin: 03/23/22 18:26 Dose: Not Given Nitroglycerin (Nitroglycerin 0.4 Mg Sublingual Tablet) 0.4 mg SUBLINGUAL Q5M PRN PRN Reason: CHEST PAIN Ondansetron HCl (Ondansetron 2 Mg/Ml Sdv 2 Ml) 4 mg IVP Q6H PRN PRN Reason: NAUSEA AND VOMITING Last Admin: 03/22/22 15:12 Dose: 4 mg Pantoprazole Sodium (Pantoprazole Dr 40 Mg Tablet) 40 mg PO QAM [facility] Last Admin: 03/24/22 08:57 Dose: 40 mg Senna/Docusate Sodium (Sennosides-Docusate Tablet) 1 tab PO DAILY [facility] Last Admin: 03/23/22 10:12 Dose: Not Given Vitals/I&O/Wt Last Vital Signs Temp 98 F 03/24/22 04:05 Pulse 80 03/24/22 08:00 Resp 16 03/24/22 08:00 BP 108/62 03/24/22 04:05 Pulse Ox 97 03/24/22 08:00 O2 Del Method 03/24/22 08:00 03/23/22 03/24/22 03/24/22 22:59 06:59 14:59 Intake Total 222 / 1245 1000 / 1000 Output Total 550 / 550 400 / 950 200 / 200 Balance -328 / 695 -400 / 295 800 / 800 Physical Exam Narrative: GENERAL: The patient is alert and oriented times three. Not in any acute distress. HEENT: No significant pallor, icterus or lymphadenopathy.Oral cavity: There are no mucous membrane lesions. NECK: Trachea appears to be central. No masses noted. No JVD or thyromegaly appreciated. RESPIRATORY: Chest is symmetrical. No intercostals muscle retraction or any accessory muscle activation. There is no chest wall tenderness. Breath sounds are heard bilaterally. No rales or rhonchi heard. No evidence of any consolidation. BREASTS: Deferred. HEART: The heart sounds are normal. No S3 or S4. No significant murmurs. No pericardial rub ABDOMEN: No vessel pulsations or distention. No tenderness. No organomegaly appreciated. Bowel sounds are normally heard. : Deferred. RECTAL: Deferred. LYMPHATIC: No lymphadenopathy noted in the neck. EXTREMITIES: No edema or cyanosis. No clubbing. MUSCULOSKELETAL: No acute joint deformities or swelling SKIN: There are no significant rashes or ecchymosis NEUROPSYCHIATRIC: The patient is alert and oriented x3. Appears to be in a good mood. No tremors or rigidity noted. Data : 03/23/22 03:40 03/23/22 03:40 Other data: cath on 03/21/2022 ? * The left main is a medium caliber vessel with no significant stenotic lesions. ? * The left anterior descending artery is a medium caliber vessel which appears to wrap around the LV apex minimally.? The mid LAD was found to have around 30 to 40% diffuse irregular narrowing.? The distal artery also was found to have some intimal narrowing.? No significant stenotic lesions were noted. The first 2 diagonal branches found to have around 40 to 50% tubular narrowing, involving the ostium.. ? * The left circumflex artery is a medium caliber vessel which appears to have around 20 to 30% narrowing proximally.? Then the artery appears to bifurcate.? No other significant lesions were noted. ? * The right coronary artery is a medium caliber dominant vessel which was found to have 20 to 30% irregular narrowing in the proximal segment.? Intimal irregularities are noted in the PDA and the PLV branches.? No significant stenotic lesions were noted. A&P Assessment and plan (1) Nausea and vomiting: Currently resolved Status: Acute (2) Atherosclerotic heart disease of [place] coronary artery with other forms of angina pectoris: Status: Acute (3) AV block, 2nd degree: Intermittent, currently resolved never required any intervention at this point. Status: Acute (4) Elevated blood pressure reading: Blood pressure seems to be in the normal range. We will continue on the current medications. Status: Acute (5) Emphysema of lung: Continue on the current measures. Status: Acute (6) Dyslipidemia: May continue on the Lipitor. Status: Acute Plan Is a is overall cardiovascular status seems to be stable, may be discharged home from a cardiac standpoint. An event monitor as an outpatient would be appropriate to evaluate for any spontaneous no similar previous studies are available for comparison/heart blocks. Need to be seen at the [facility] 1 week, to see the nurse practitioner Appointment with me in the office as scheduled Attestations Medical Necessity Statement*: Possible discharge home today Coding Level of Care Code Acute Kiln Firer Helper for Maddyg Fwd History Expanded Problem Focused Exam Expanded Problem Focused Medical Decision Making Moderate Complexity Diagnoses Nausea and vomiting R11.2 Atherosclerotic heart disease of [place] coronary artery with other forms of angina pectoris I25.118 AV block, 2nd degree I44.1 Elevated blood pressure reading R03.0 Emphysema of lung J43.9 Dyslipidemia E78.5
--- NOTE | 2022-03-24 12:08 | P.DS_ITS ---
Discharge Providers Date of Admission: 03/20/22 19:53 Date of Discharge: March 24, 2022 Attending Provider at Admission: David Sotelo MD Attending Provider at Discharge: David Sotelo MD Primary Care Provider: Braden Owen NP Diagnoses at Discharge Discharge Diagnosis (1) Nausea and vomiting: Status: Acute (2) Atherosclerotic heart disease of [place] coronary artery with other forms of angina pectoris: Status: Acute (3) AV block, 2nd degree: Status: Acute (4) Elevated blood pressure reading: Status: Acute (5) Emphysema of lung: Status: Acute Permanent problem details: Quit in 2019 (6) Dyslipidemia: Status: Acute Reason for Visit Reason for Visit: SOB/CP Hospital Course Hospital Course 57-year female who was admitted to the hospital for management of unstable angina on request of Dr. Neff. There was plan for angiogram next day she started experiencing emesis. Patient stated that after getting Dilaudid she had cyclical vomiting last time as well. Rapid response was called when she had 1 vasovagal response after vomiting. She quickly perked up, he remained hemodynamically stable, became hypotensive. She was transferred to ICU because of her frequent bradycardic episodes, she was diagnosed with high degree AV block please note as soon as her emesis improved her bradycardic episodes improved. On telemetry there were intermittent sinus pauses, longest was 6 seconds with her vomiting. Her vomiting subsided with use of scopolamine patch. Opiates were discontinued. No need of EGD, there is no odynophagia or dysphagia. Hemoglobin A1c is 5.1. Patient will be discharged home on event monitor, she has remained hemodynamically stable. She went for coronary angiogram 03/21 found to have mild diffuse coronary disease, no intervention was done. Patient is currently in sinus rhythm with normal hemodynamics. Low-dose lisinopril added for as needed use her systolic blood pressures remain below 130. I have discontinued AV zenobia blocking agent During hospitalization she was started on ACS protocol however troponins were not remarkably high. Her beta-frank was discontinued 24 hours after her admission when she experienced vasovagal bradycardic episode. Physical Exam Narrative: Patient is endorsing feeling better In good spirits Hemodynamically stable Telemetry did not show significant pauses Patient is clinically and hemodynamically stable Awake and alert Abdomen soft No active emesis Currently on room air Nonfocal neuro exam Discharge Data Studies Completed and Pending Completed Studies During Hospitalization Category Date Time Status CTA chest [CT angio chest PE protcl [id number]] Routine Cat Scan 03/20/22 17:49 Completed [employer] request for service Routine Exams 03/21/22 10:04 Completed XR KUB [id number] Stat Exams 03/21/22 09:40 Completed XR chest 1V portable [id number] Stat Exams 03/20/22 16:38 Completed XR chest 1V portable [id number] Stat Exams 03/21/22 11:54 Completed US venous duplex lower extremity bilat [CV venous Ultrasound 03/21/22 13:43 [place] [id number]] Routine Radiology Impressions Chest CTA 03/20/22 17:49 IMPRESSION: No evidence of pulmonary embolism. No acute infiltrate. KUB X-Ray 03/21/22 09:40 Impression: 1. Postsurgical changes in upper abdomen. 2. Large amount of fecal material in the colon. Chest X-Ray 03/21/22 11:54 IMPRESSION: No acute findings. Laboratory Results WBC 5.6 10^3/uL (4.0-10.0) 03/23/22 03:40 RBC 4.16 10^6/uL (4.1-5.3) 03/23/22 03:40 Hgb 11.4 g/dL (11.5-15.3) L 03/23/22 03:40 Hct 36.0 % (37.0-47.0) L 03/23/22 03:40 MCV 86.5 fl (81-99) 03/23/22 03:40 MCH 27.4 pg (28.0-34.0) L 03/23/22 03:40 MCHC 31.7 g/dL (30.0-36.0) 03/23/22 03:40 RDW 13.4 % (12.1-15.1) 03/23/22 03:40 Plt Count 178 10^3/cmm (130-400) 03/23/22 03:40 MPV 11.0 fL (7.4-10.4) H 03/23/22 03:40 Neut % (Auto) 59.4 % 03/23/22 03:40 Lymph % (Auto) 26.7 % 03/23/22 03:40 [place] % (Auto) 12.4 % 03/23/22 03:40 Eos % (Auto) 0.7 % 03/23/22 03:40 Baso % (Auto) 0.4 % 03/23/22 03:40 Neut # (Auto) 3.32 10^3/uL (1.8-7.7) 03/23/22 03:40 Lymph # (Auto) 1.5 10^3/uL (0.8-4.8) 03/23/22 03:40 [place] # (Auto) 0.7 10^3/uL (0.2-0.9) 03/23/22 03:40 Eos # (Auto) 0.0 10^3/uL (0.0-0.8) 03/23/22 03:40 Baso # (Auto) 0.0 10^3/uL (0.0-0.1) 03/23/22 03:40 Nucleated RBC % (auto) 0 % 03/23/22 03:40 Nucleated RBCs # 0.0 /100WBC 03/23/22 03:40 APTT 88.0 SECONDS (23.9-36.7) H 03/21/22 17:00 D-Dimer 2.52 ug/mIFEU (0-0.59) H 03/20/22 17:03 Sodium 138 mmol/L (136-145) 03/23/22 03:40 Potassium 3.8 mmol/L (3.5-5.1) 03/23/22 03:40 Chloride 100 mmol/L (98-107) 03/23/22 03:40 Carbon Dioxide 27 mmol/L (22-29) 03/23/22 03:40 Anion Gap 14.8 (5-19) 03/23/22 03:40 BUN 7 mg/dL (6-20) 03/23/22 03:40 Creatinine 0.5 mg/dL (0.5-0.9) 03/23/22 03:40 GFR Calculation 127.2 mL/min (90-130) 03/23/22 03:40 Glucose 115 mg/dL (65-115) 03/23/22 03:40 POC Glucose 156 mg/dL (70-110) H 03/21/22 11:51 Estimat Average Glucose 100 03/21/22 02:10 Hemoglobin A1c 5.1 % (4.0-6.0) 03/21/22 02:10 Calculated Osmolality 285 mOsm/kg (285-295) 03/23/22 03:40 Calcium 8.8 mg/dL (8.5-10.5) 03/23/22 03:40 Magnesium 2.2 mg/dL (1.7-2.3) 03/23/22 03:40 Troponin T Baseline 6 ng/L (0-10) 03/20/22 17:51 Troponin T 120 Minute 6.00 ng/L (0-10) 03/20/22 20:47 Delta Troponin T 0 ABS# (0-10) 03/20/22 20:47 Troponin T Hi Sens 6Hr 6.26 ng/L (0-10) 03/20/22 02:10 Troponin T Hi Sens 6Hr Delta 0.26 ng/L (0-12) 03/20/22 02:10 Triglycerides 71 mg/dL (0-150) 03/20/22 20:47 Cholesterol 239 mg/dL (0-200) H 03/20/22 20:47 LDL Cholesterol, Calc 142 mg/dL (50-129) H 03/20/22 20:47 HDL Cholesterol 83 mg/dL (60-100) 03/20/22 20:47 LDL/HDL Ratio 1.71 RATIO (0.00-3.22) 03/20/22 20:47 Cholesterol/HDL Ratio 2.88 mg/dL (0.0-4.40) 03/20/22 20:47 TSH 2.51 uIU/mL (0.27-4.20) 03/23/22 03:40 Vitals Last Vital Signs Temp 98 F 03/24/22 04:05 Pulse 80 03/24/22 08:00 Resp 29 H 03/24/22 11:39 BP 108/62 03/24/22 04:05 Pulse Ox 97 03/24/22 11:39 O2 Del Method 03/24/22 08:00 Discharge Plan Discharge Patient Disposition: Home Condition: Stable Prescriptions: New lisinopril 5 mg Tablet 5 mg PO DAILY PRN (Reason: Systolic blood pressure above 140 diastolic above 90) Qty: 20 0RF Continued nitroglycerin 0.4 mg tablet, sublingual 0.4 mg sublingual Q5M PRN (Reason: chest pain) 30 Days Qty: 30 3RF Rx Instructions: until response; do not exceed 3 doses per episode atorvastatin [Lipitor] 40 mg tablet 40 mg PO DAILY Qty: 30 5RF (DME) Cam Boot to the left See Rx Instructions .Route .MEDSUPPLY Qty: 1 0RF Rx Instructions: As directed multivitamin Tablet 1 tab PO QAM levothyroxine 25 mcg tablet 25 mcg PO QAM fluticasone propionate [Flonase Allergy Relief] 50 mcg/actuation spray,suspension 2 spray INTRANASAL DAILY ibandronate 150 mg tablet 150 mg PO Q30D tizanidine 2 mg tablet 2 mg PO Q6H PRN (Reason: Spasms) albuterol sulfate 90 mcg/actuation HFA aerosol inhaler 2 puff inhalation Q4H PRN (Reason: shortness of breath or wheezing) rizatriptan 10 mg Tablet 10 mg PO Q2H MDD 2 tabs PRN (Reason: Migraine Headache) Headache Relief (JDU-kipy-icu) 250-250-65 mg Tablet 2 tab PO BID Prilosec OTC 20 mg tablet,delayed release (DR/EC) 20 mg PO QAM cyanocobalamin (vitamin B-12) 1,000 mcg/mL solution 1,000 mcg SUBCUT DAILY Discontinued metoprolol tartrate 25 mg tablet 25 mg PO BID 30 Days Qty: 60 5RF meloxicam 7.5 mg tablet 7.5 mg PO DAILY Discharge Orders: Discharge Order (Routine); Ordered 03/24/22 Ordered By: David Sotelo Other Ambulatory Orders: MCT/Event Monitor 21 Days (Routine) Timeframe: 3 Weeks Facility: [facility] - Location: Radiology Ordered By: David Sotelo Referrals: Meño Neff MD [Physician] - 1 month Braden Owen NP [Primary Care Provider] - Bonita Juilo FNP [Nurse Practitioner] - 4-7 days Discharge Diet: Cardiac Discharge Activity: Increase activity as tolerated Patient Instructions: Opioid Safety Discharge Attestations Time Spent in Discharge Care*: less than 30 min Quality Metrics Clinical Quality Measures [ No reported AMI, CVA or VTE this stay] Coding Level of Care Code Acute Chg FW DC note Diagnoses Nausea and vomiting R11.2 Atherosclerotic heart disease of [place] coronary artery with other forms of angina pectoris I25.118 AV block, 2nd degree I44.1 Elevated blood pressure reading R03.0 Emphysema of lung J43.9 Dyslipidemia E78.5
== END 2022-03-24 13:45 | disposition home or self-care (01) | DRG 287 ==
LOC: ER 16:57 → MEDSURG 18:41 → ICU 03-21 20:52
PROVIDERS: Internal Medicine Cardiovascular Disease; Admitting Provider Internal Medicine; Emergency Provider Emergency Medicine; PCP Nurse Practitioner Family; Visit Provider Internal Medicine
PROC: 4A023N7 Measurement of Cardiac Sampling and Pressure, Left Heart, Percutaneous Approach (ICD-10-PCS; principal; 2022-03-21 12:00)
DX: I25.110 Atherosclerotic heart disease of native coronary artery with unstable angina pectoris (principal); I10 Essential (primary) hypertension; Z82.49 Family history of ischemic heart disease and other diseases of the circulatory system; G43.711 Chronic migraine without aura, intractable, with status migrainosus; J43.9 Emphysema, unspecified; Z87.891 Personal history of nicotine dependence; E78.5 Hyperlipidemia, unspecified; R55 Syncope and collapse; R25.2 Cramp and spasm; I44.1 Atrioventricular block, second degree; Z79.51 Long term (current) use of inhaled steroids; I95.9 Hypotension, unspecified; R11.2 Nausea with vomiting, unspecified; T40.2X5A Adverse effect of other opioids, initial encounter; Z66 Do not resuscitate; E03.9 Hypothyroidism, unspecified; K21.9 Gastro-esophageal reflux disease without esophagitis
CPT/HCPCS: 36415; 36416; 71045; 71275; 74018; 80048; 80061; 82962; 83036; 83735; 84443; 84484; 85025; 85378; 85730; 93005; 93452; 93458; 93970; 96360; 96372; 99152; 99153; C1769; C1887; C1894; J1170; J1644; J1650; J2250; J2270; J2405; J2765; J3010; J3490; J7030; J7050; J7799; Q9967

== ENCOUNTER → 2022-04-01 10:14 | Outpatient (BNVA) | payer MEDICAID, SELFPAY | PROVIDERS: PCP Nurse Practitioner Family; Visit Provider Nurse Practitioner Family | DX: R07.9 Chest pain, unspecified (principal); I44.1 Atrioventricular block, second degree | CPT/HCPCS: 93270; 99214 ==

== ENCOUNTER 2022-04-21 19:45 | Emergency (ER) | payer MEDICAID, SELFPAY ==
--- NOTE | 2022-04-21 20:13 | ECG_ITS ---
[facility] Test Date: 2022-04-21 Pat Name: Radha Maguire Department: Room: Gender: Female Social Service Liaison: : 1965 Requested By: Diego Hinds Order Number: [id number] Emily MD: Meño Neff M.D. Measurements Intervals [place] Rate: 91 P: 60 HI: 124 QRS: 62 QRSD: 84 T: 74 QT: 327 QTc: 404 Interpretive Statements SINUS RHYTHM POSSIBLE LEFT ATRIAL ENLARGEMENT [-0.1mV P-WAVE IN V1/V2] POSSIBLE RIGHT VENTRICULAR CONDUCTION DELAY [RSR (QR) IN V1/V2] Compared to ECG 03/22/2022 15:04:15 Incomplete right bundle-branch block no longer present Myocardial infarct finding no longer present Electronically Signed On 04-22-2022 20:38:43 CDT by Meño Neff M.D. [email or web address]
[2022-04-21 20:20] VITALS: BP 114/79; PULSE 93; RESP 16; TEMP 36.8; O2SAT 99; BMI 21.0
--- NOTE | 2022-04-21 20:26 | XRR_ITS ---
PROCEDURE INFORMATION: Exam: XR Chest Exam date and time: 04/21/2022 9:10 PM Age: 57 years old Clinical indication: Sternal or substernal pain; Additional info: Cp TECHNIQUE: Imaging protocol: Radiologic exam of the chest. Views: 1 view. COMPARISON: CR XR chest 1V portable [id number] 03/21/2022 12:07 PM FINDINGS: Lungs: Unremarkable. No consolidation. Pleural spaces: Unremarkable. No pleural effusion. No pneumothorax. Heart/Mediastinum: Unremarkable. No cardiomegaly. Bones/joints: Unremarkable. XR/XR chest 1V portable [id number] IMPRESSION: No acute findings.
[2022-04-21 20:40] LABS: Basophils % 0.2 %; Eosinophils # 0.2 10^3/uL (0.0-0.8); Eosinophils % 3.4 %; Hematocrit 39.6 % (37.0-47.0); Hemoglobin 12.9 g/dL (11.5-15.3); Lymphocytes # 1.7 10^3/uL (0.8-4.8); Mean Corpuscular HGB Conc 32.6 g/dL (30.0-36.0); Mean Corpuscular Hemoglobin 27.8 pg (28.0-34.0); Mean Corpuscular Volume 85.3 fl (81-99); Mean Platelet Volume 11.4 fL (7.4-10.4); Monocytes # 0.5 10^3/uL (0.2-0.9); Monocytes % 9.1 %; Neutrophils # 3.45 10^3/uL (1.8-7.7); Neutrophils % 58.1 %; Nucleated Red Blood Cells % 0 %; Platelet Count 200 10^3/cmm (130-400); Red Blood Count 4.64 10^6/uL (4.1-5.3); Red Cell Distribution Width 14.5 % (12.1-15.1); White Blood Count 5.9 10^3/uL (4.0-10.0)
[2022-04-21 21:06] LABS: Troponin(5th) Baseline 6 ng/L (0-10)
[2022-04-21 21:11] LABS: Alanine Aminotransferase 9 U/L (0-33); Albumin Level 4.4 g/dL (3.5-5.2); Alkaline Phosphatase 96 U/L (35-105); Aspartate Amino Transferase 19 U/L (0-32); Blood Urea Nitrogen 20 mg/dL (6-20); Calcium 9.3 mg/dL (8.5-10.5); Carbon Dioxide 24 mmol/L (22-29); Chloride 101 mmol/L (98-107); Globulin 2.9 g/dL (1.3-4.6); Glomerular Filtration Rate 86.2 mL/min (90-130); Glucose 97 mg/dL (65-115); NT Pro B Type Natriuretic Pept 59 pg/mL (0-125); Osmolality Calculated 289 mOsm/kg (285-295); Sodium 138 mmol/L (136-145); Total Bilirubin 0.2 mg/dL (0.15-1.2); Total Protein 7.3 g/dL (6.6-8.7)
--- NOTE | 2022-04-21 21:21 | ED_ITS ---
HPI - Chest Pain General: Chief Complaint: Chest Pain Stated Complaint: CP Time Seen by Provider: 04/21/22 20:18 History of Present Illness: 57-year-old female presents with chest pain. Patient reports that it started after she got some bad news regarding her son. Patient reports that she is also got a headache associated with it. Patient has a Holter monitor on because she is being evaluated because she has had some slow beats her heart stopping and her determine if she needs a pacemaker. Patient denies any shortness of breath. Fever, chills, nausea, vomiting. Patient is very stressed but does not want of elaborate on what is causing her stress. Associated symptoms: Deny abdominal pain, dyspnea, fever(s), nausea, palpitations or vomiting Review of Systems Const: Denies: fever(s), chills or body aches Eyes: Denies: change in vision or blurry vision Card: Reports: chest pain and irregular heart rhythm; Denies: palpitations or lightheadedness Resp: Denies: dyspnea, productive cough or wheezing GI: Denies: abdominal pain, nausea or vomiting Musc: Denies: neck pain or back pain Skin/Breast: Denies: rash or pruritus Neuro: Reports: headache(s); Denies: dizziness Psych: Reports: other (Please see HPI) PFSH ED PFSH: Medical History Atherosclerotic heart disease of [place] coronary artery with other forms of angina pectoris AV block, 2nd degree Chest pain Chronic migraine without aura, intractable, with status migrainosus Dyslipidemia Elevated blood pressure reading Emphysema of lung Quit in 2019 HTN (hypertension) Nausea and vomiting Recurrent vomiting Unstable angina Surgical History H/O colonoscopy History of appendectomy History of cholecystectomy History of colon resection History of hysterectomy History of surgery ULCERS AND PART OF STOMACH REMOVED Family History Mother CAD (coronary artery disease), Onset Age: 50 Cancer Lung disease Stroke Denies family history of Diabetes Clotting disorder Dementia Chronic kidney disease (CKD) Suicide Anesthesia complication Bleeding disorder Social History Smoking and tobacco status: former smoker (3-4years ago) Alcohol intake: former Physical Exam Const: COMMON NORMALS: no acute distress, patient oriented x3 and alert NUTRITIONAL APPEARANCE: overweight HENMT: COMMON NORMALS: normocephalic and hearing grossly normal bilaterally HEAD & SCALP: normocephalic Resp: COMMON NORMALS: normal respiratory effort, No use of accessory muscles and clear to auscultation bilaterally AUSCULTATION: clear to auscultation bilaterally Cardio: COMMON NORMALS: regular rate and regular rhythm RATE: regular rate RHYTHM: regular rhythm GI: COMMON NORMALS: Soft to palpation and non-tender PALPATION: Yes Soft to palpation Extremity: COMMON NORMALS: full ROM and capillary refill normal Neuro: COMMON NORMALS: patient oriented x3, no focal motor deficits and no sensory deficits noted SENSORIUM/ORIENTATION: Yes alert Psych: COMMON NORMALS: cooperative MOOD & AFFECT: Yes depressed mood Skin: COMMON NORMALS: no rashes or lesions noted GENERAL SKIN EXAM: no rashes or lesions noted Course Vital Signs: Vital signs: Vital Signs Temperature 98.2 F 04/21/22 20:20 Pulse Rate 82 04/21/22 21:37 Respiratory Rate 18 04/21/22 21:37 Blood Pressure 107/72 04/21/22 21:37 Pulse Oximetry 97 04/21/22 21:37 Oxygen Delivery Me thod 04/21/22 21:37 MDM - Chest Pain Medical Decision Making Patient is requesting to be discharged home. Patient symptoms likely related to acute stress reaction. Patient has a Holter monitor that has not gotten any calls from any abnormalities that she need to be seen or come in. Patient with negative troponin negative EKG negative x-ray in the ER. Patient was stable upon discharge Lab Data : 04/21/22 19:58 04/21/22 19:58 Laboratory Results WBC 5.9 10^3/uL (4.0-10.0) 04/21/22 19:58 RBC 4.64 10^6/uL (4.1-5.3) 04/21/22 19:58 Hgb 12.9 g/dL (11.5-15.3) 04/21/22 19:58 Hct 39.6 % (37.0-47.0) 04/21/22 19:58 MCV 85.3 fl (81-99) 04/21/22 19:58 MCH 27.8 pg (28.0-34.0) L 04/21/22 19:58 MCHC 32.6 g/dL (30.0-36.0) 04/21/22 19:58 RDW 14.5 % (12.1-15.1) 04/21/22 19:58 Plt Count 200 10^3/cmm (130-400) 04/21/22 19:58 MPV 11.4 fL (7.4-10.4) H 04/21/22 19:58 Neut % (Auto) 58.1 % 04/21/22 19:58 Lymph % (Auto) 29.0 % 04/21/22 19:58 [place] % (Auto) 9.1 % 04/21/22 19:58 Eos % (Auto) 3.4 % 04/21/22 19:58 Baso % (Auto) 0.2 % 04/21/22 19:58 Neut # (Auto) 3.45 10^3/uL (1.8-7.7) 04/21/22 19:58 Lymph # (Auto) 1.7 10^3/uL (0.8-4.8) 04/21/22 19:58 [place] # (Auto) 0.5 10^3/uL (0.2-0.9) 04/21/22 19:58 Eos # (Auto) 0.2 10^3/uL (0.0-0.8) 04/21/22 19:58 Baso # (Auto) 0.0 10^3/uL (0.0-0.1) 04/21/22 19:58 Nucleated RBC % (auto) 0 % 04/21/22 19:58 Nucleated RBCs # 0.0 /100WBC 04/21/22 19:58 Sodium 138 mmol/L (136-145) 04/21/22 19:58 Potassium 4.3 mmol/L (3.5-5.1) 04/21/22 19:58 Chloride 101 mmol/L (98-107) 04/21/22 19:58 Carbon Dioxide 24 mmol/L (22-29) 04/21/22 19:58 Anion Gap 17.3 (5-19) 04/21/22 19:58 BUN 20 mg/dL (6-20) 04/21/22 19:58 Creatinine 0.7 mg/dL (0.5-0.9) 04/21/22 19:58 GFR Calculation 86.2 mL/min (90-130) L 04/21/22 19:58 Glucose 97 mg/dL (65-115) 04/21/22 19:58 Calculated Osmolality 289 mOsm/kg (285-295) 04/21/22 19:58 Calcium 9.3 mg/dL (8.5-10.5) 04/21/22 19:58 Total Bilirubin 0.2 mg/dL (0.15-1.2) 04/21/22 19:58 AST 19 U/L (0-32) 04/21/22 19:58 ALT 9 U/L (0-33) 04/21/22 19:58 Alkaline Phosphatase 96 U/L (35-105) 04/21/22 19:58 Troponin T Baseline 6 ng/L (0-10) 04/21/22 19:58 NT-Pro-B Natriuret Pep 59 pg/mL (0-125) 04/21/22 19:58 Total Protein 7.3 g/dL (6.6-8.7) 04/21/22 19:58 Albumin 4.4 g/dL (3.5-5.2) 04/21/22 19:58 Globulin 2.9 g/dL (1.3-4.6) 04/21/22 19:58 EKG Data EKG 1: I personally reviewed and interpreted this EKG as follows: EKG interpretation date: 04/21/22 EKG interpretation time: 20:13 Interpretation: Heart rate 91 PA interval 124 QRS 84 QT 376, sinus rhythm, no acute changes Discharge Plan Discharge Patient Disposition: Home Clinical Impression: Acute reaction to situational stress Chest pain Qualifiers: Chest pain type: other chest pain Qualified Code(s): R07.89 - Other chest pain Condition: Stable Prescriptions: No Action atorvastatin [Lipitor] 40 mg tablet 40 mg PO DAILY Qty: 30 5RF (DME) [place] to the left See Rx Instructions .Route .MEDSUPPLY Qty: 1 0RF Rx Instructions: As directed nitroglycerin 0.4 mg tablet, sublingual 0.4 mg sublingual Q5M PRN (Reason: chest pain) 30 Days Qty: 25 6RF Rx Instructions: until response; do not exceed 3 doses per episode multivitamin Tablet 1 tab PO QAM levothyroxine 25 mcg tablet 25 mcg PO QAM ibandronate 150 mg tablet 150 mg PO Q30D tizanidine 2 mg tablet 2 mg PO Q6H PRN (Reason: Spasms) albuterol sulfate 90 mcg/actuation HFA aerosol inhaler 2 puff inhalation Q4H PRN (Reason: shortness of breath or wheezing) omeprazole magnesium [Prilosec OTC] 20 mg tablet,delayed release (DR/EC) 20 mg PO QAM lisinopril 5 mg Tablet 5 mg PO DAILY PRN (Reason: Systolic blood pressure above 140 diastolic above 90) Qty: 20 0RF aspirin 81 mg tablet,delayed release (DR/EC) 81 mg PO DAILY meloxicam 7.5 mg Tablet 7.5 mg PO DAILY Excedrin Migraine 250-250-65 mg Tablet 1 tab PO Q6H PRN (Reason: Pain) Discharge Orders: Discharge ED (Routine); Ordered 04/21/22 Ordered By: Diego Hinds Referrals: Braden Owen NP [Primary Care Provider] - Discharge Diet: Advance as tolerated Discharge Activity: Resume usual activity Patient Instructions: Chest Pain (DC), Opioid Safety, Pain Management, Stress Activity Restrictions/Additional Instructions: These call Dr. Neff in the morning to see if he wants to do follow-up for further evaluation Coding Level of Care Code ED [employer] Fire Control Man for Storm Fwd Exam Comprehensive
[2022-04-21 21:26] LABS: Anion Gap 17.3 (5-19); Potassium 4.3 mmol/L (3.5-5.1)
--- NOTE | 2022-04-21 21:30 | PC.NURSE ---
Pt states she is feeling better and is ready to go home. MD notified.
[2022-04-21] MEDS: acetaminophen 500 mg Tablet 1000 MG PO (21:31)
[2022-04-21] MEDS: metoclopramide 5 mg/mL SDV 2 mL IVP (21:31)
[2022-04-21 21:37] VITALS: BP 107/72; PULSE 82; RESP 18; O2SAT 97
== END 2022-04-21 22:16 | disposition home or self-care (01) ==
PROVIDERS: Emergency Provider Student in an Organized Health Care Education/Training Program; PCP Nurse Practitioner Family
DX: R07.89 Other chest pain (principal); F43.0 Acute stress reaction; Z79.82 Long term (current) use of aspirin; Z87.891 Personal history of nicotine dependence; E78.5 Hyperlipidemia, unspecified; J43.9 Emphysema, unspecified; I10 Essential (primary) hypertension
CPT/HCPCS: 71045; 80053; 83880; 84484; 85025; 93005; 96374; 99285; J2765

== ENCOUNTER → 2022-06-12 12:34 | Outpatient (BNVA) | payer MEDICAID, SELFPAY | PROVIDERS: PCP Nurse Practitioner Family; Visit Provider Internal Medicine Cardiovascular Disease | DX: R07.89 Other chest pain (principal); R06.02 Shortness of breath; E78.5 Hyperlipidemia, unspecified; R03.0 Elevated blood-pressure reading, without diagnosis of hypertension; I44.1 Atrioventricular block, second degree | CPT/HCPCS: 99213 ==

== ENCOUNTER 2022-11-27 10:23 | Outpatient (CLI) | payer MEDICAID, SELFPAY ==
--- NOTE | 2022-11-27 10:52 | MM_ITS ---
WS: [id number] VIEWS: MLO and CC views both breasts. 3D digital tomosynthesis is also included in this exam. Comparison made with prior exam of 06/10/2010, 10/27/2011, 09/25/2015, 01/07/2018.. Findings: There was no sign of mass, architectural distortion or suspicious calcification in either breast. Sc attered fibroglandular densities MM/[place] [id number] Impression: BI-RADS: 2-Benign FOLLOW-UP: 1 Year Follow-up This mammogram was also analyzed by the Computer Aided Detection System R2 Imag e Orthodontic Assistant.
--- NOTE | 2022-11-27 10:52 | XR_ITS ---
WS: [email or web address] SCREENING DEXA SCAN [employer]! CLINICAL INFORMATION: OSTEOPOROSIS SCREENING COMPARISON: September 13, 2019 FINDINGS: The L1-L4 bone mineral density measures 0.794 g/cm2. This corresponds to a T score score of -3.2 and Z score of -1.7. Left femoral neck bone mineral density measures 0.543 g/cm2. This corresponds to a T score of -3.7 an d Z score of -2.5. Right femoral neck bone mineral density measures 0.580 g/cm2. This corresponds to a T score -3.4of an d Z score of -2.2. Mean femoral neck bone mineral density measures 0.561 g/cm2. This corresponds to a T score of -3.5 an d Z score of -2.4. XR/XR DEXA axial skeleton* [id number] IMPRESSION: Osteoporosis lumbar spine. Osteoporosis femoral necks. Patient's FRAX calculated 10 year probability for major osteoporotic fracture i s 24.1 % and osteoporotic hip fracture is 9.6%. Bone mineral density lumbar spine has increased 1.9% since 2019. Bone mineral density femoral necks decreased -0.5% since 2020.
--- NOTE | 2022-11-27 11:08 | CT_ITS ---
WS: [email or web address] LDCT LUNG CANCER SCREENING TECHNIQUE: Noncontrast CT of the chest with coronal and sagittal reformatted images. CLINICAL INFORMATION: FORMER SMOKER COMPARISON: CT 2021 DLP: 40.40 mGy.cm DIvol: Mean CTDIvol: 0.50 (mGy) All CT scans at [facility] use at least one of these dose optimization techniques: automat ed exposure control; mA and/or kV adjustment per patient size (includes targeted exams where dose is matched to clinical indication); or iterative reconstruction. FINDINGS: Normal caliber thoracic aorta. Mild aortic calcification. No axillary lymphadenopathy. No mediastinal or hilar lymphadenopathy. Mild chronic emphysematous changes. A few small nodules along the RIGHT fi ssures measuring 3 to 4 mm. LEFT adrenal adenoma. Normal RIGHT adrenal gland. Cholecystectomy clips. Postoperative changes [employer] north ction. CT/CT lung screening [id number] IMPRESSION: LUNG-RADS: 2-Benign Appearance or Behavior FOLLOW UP: 12 Month: Continue annual screening with LDCT
[2022-11-27 11:58] LABS: Hepatitis C Virus Antibody Non-Reactive (Nonreactive)
[2022-11-27 12:01] LABS: HIV 1 & 2 Antibody Non-Reactive (Non-Reactiv); HIV 1 & 2 Antigen Non-Reactive (Non-Reactiv)
== END 2022-11-27 10:24 | disposition home or self-care (01) ==
PROVIDERS: PCP Nurse Practitioner Family; Visit Provider Family Medicine
DX: Z12.2 Encounter for screening for malignant neoplasm of respiratory organs (principal); Z87.891 Personal history of nicotine dependence; Z13.820 Encounter for screening for osteoporosis; M81.0 Age-related osteoporosis without current pathological fracture
CPT/HCPCS: 36415; 71271; 77063; 77067; 77080; 86803; 87806

== ENCOUNTER 2022-12-12 15:56 | Emergency (ER) | payer MEDICAID, SELFPAY ==
--- NOTE | 2022-12-12 16:03 | W.ED.ABDPA2 ---
HPI - Abdominal Pain General: Chief Complaint: Urogenital-Female Stated Complaint: LIVER /aBD PAIN URINE SMELLS LIKE EGGS Time Seen by Provider: 12/12/22 16:00 History of Present Illness: 57-year-old female comes in today with complaints of right upper quadrant pain and abnormal urine. Patient reports symptoms started about 3 days ago. Patient reports some nausea without vomiting. Patient denies any fever. Patient reports no changes in stools. Patient has had her gallbladder and appendix removed. Patient takes albuterol for chronic lung disease, atorvastatin for cholesterol, metoprolol for tachycardia, omeprazole for gastritis, meloxicam for his arthritis, and medication for osteoporosis. Associated Symptoms: Reports nausea Review of Systems General: Reports: 10 or more systems reviewed and unremarkable except in HPI and below Card: Denies: chest pain Resp: Denies: dyspnea GI: Reports: abdominal pain and nausea : Reports: other (Odorous urine) [facility] ED PFSH: Medical History Atherosclerotic heart disease of [place] coronary artery with other forms of angina pectoris AV block, 2nd degree Chest pain Chronic migraine without aura, intractable, with status migrainosus Dyslipidemia Elevated blood pressure reading Emphysema of lung Quit in 2020 HTN (hypertension) Nausea and vomiting Recurrent vomiting Unstable angina Surgical History H/O colonoscopy History of appendectomy History of cholecystectomy History of colon resection History of hysterectomy History of surgery ULCERS AND PART OF STOMACH REMOVED Family History Mother CAD (coronary artery disease), Onset Age: 50 Cancer Lung disease Stroke Denies family history of Diabetes Clotting disorder Dementia Chronic kidney disease (CKD) Suicide Anesthesia complication Bleeding disorder Social History Smoking and tobacco status: former smoker (3-4years ago) Alcohol intake: former Substance/Drug Use: never Physical Exam Const: COMMON NORMALS: alert HENMT: COMMON NORMALS: normocephalic HEAD & SCALP: normocephalic Neck/C-Spine: COMMON NORMALS: full ROM Resp: COMMON NORMALS: normal respiratory effort and clear to auscultation bilaterally AUSCULTATION: clear to auscultation bilaterally Cardio: COMMON NORMALS: regular rate RATE: regular rate GI: COMMON NORMALS: Soft to palpation AUSCULTATION: Yes normoactive bowel sounds PALPATION: Yes Soft to palpation and Yes Tenderness to palpation present (GI) Details: RUQ : COMMON NORMALS: Yes no CVA tenderness BLADDER/KIDNEY EXAM: Yes no CVA tenderness Back/Pelvis: COMMON NORMALS: no CVA tenderness Extremity: COMMON NORMALS: normal to inspection Neuro: SENSORIUM/ORIENTATION: Yes alert Skin: COMMON NORMALS: turgor normal GENERAL SKIN EXAM: turgor normal Course Vital Signs: Vital signs: Vital Signs Temperature 98.5 F 12/12/22 16:07 Pulse Rate 100 12/12/22 16:51 Respiratory Rate 16 12/12/22 19:07 Blood Pressure 128/92 12/12/22 16:51 Pulse Oximetry 97 12/12/22 16:51 Oxygen Delivery Me thod Room Air 12/12/22 16:51 MDM - Abdominal Pain Medical Decision Making 57-year-old female comes in today with right upper quadrant abdominal pain radiating to the back and abnormal urine. On exam abdomen soft with some tenderness in the right upper quadrant. Bowel sounds are active. Skin is warm and dry. Vital signs are normal. Differential diagnosis includes but not limited to renal colic, UTI, constipation. CBC and CMP was unremarkable. Urinalysis had blood in the urine. CT was performed to rule out renal stone. No sign of stone was noted in the CT scan however constipation was noted. Patient was started on some cephalexin 500 mg twice a day to cover for urinary tract infection and to help peristalsis of the bowel. Patient was encouraged to drink plenty of fluids use Zofran as needed for nausea. Recommend follow-up with primary care in 1 week for recheck. Return to ED for new concerns. Patient reported understanding. Lab Data 12/12/22 16:18 12/12/22 16:18 Labs/Radiology: Radiology Impressions Abdomen/Pelvis CT 12/12/22 17:57 IMPRESSION: 1. No acute abnormality. No hydronephrosis or nephrolithiasis. 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 2. There is a large amount of stool in the right colon. No evidence of colitis or bowel obstruction. Laboratory Results WBC 5.3 10^3/uL (4.0-10.0) 12/12/22 16:18 RBC 4.42 10^6/uL (4.1-5.3) 12/12/22 16:18 Hgb 11.7 g/dL (11.5-15.3) 12/12/22 16:18 Hct 37.5 % (37.0-47.0) 12/12/22 16:18 MCV 84.8 fl (81-99) 12/12/22 16:18 MCH 26.5 pg (28.0-34.0) L 12/12/22 16:18 MCHC 31.2 g/dL (30.0-36.0) 12/12/22 16:18 RDW 14.5 % (12.1-15.1) 12/12/22 16:18 Plt Count 210 10^3/cmm (130-400) 12/12/22 16:18 MPV 9.9 fL (7.4-10.4) 12/12/22 16:18 Neut % (Auto) 61.4 % 12/12/22 16:18 Lymph % (Auto) 25.8 % 12/12/22 16:18 [place] % (Auto) 8.5 % 12/12/22 16:18 Eos % (Auto) 3.9 % 12/12/22 16:18 Baso % (Auto) 0.2 % 12/12/22 16:18 Neut # (Auto) 3.27 10^3/uL (1.8-7.7) 12/12/22 16:18 Lymph # (Auto) 1.4 10^3/uL (0.8-4.8) 12/12/22 16:18 [place] # (Auto) 0.5 10^3/uL (0.2-0.9) 12/12/22 16:18 Eos # (Auto) 0.2 10^3/uL (0.0-0.8) 12/12/22 16:18 Baso # (Auto) 0.0 10^3/uL (0.0-0.1) 12/12/22 16:18 Nucleated RBC % (auto) 0 % 12/12/22 16:18 Nucleated RBCs # 0.0 /100WBC 12/12/22 16:18 Sodium 140 mmol/L (136-145) 12/12/22 16:18 Potassium 4.6 mmol/L (3.5-5.1) 12/12/22 16:18 Chloride 104 mmol/L (98-107) 12/12/22 16:18 Carbon Dioxide 24 mmol/L (22-29) 12/12/22 16:18 Anion Gap 16.6 (5-19) 12/12/22 16:18 BUN 15 mg/dL (6-20) 12/12/22 16:18 Creatinine 0.7 mg/dL (0.5-0.9) 12/12/22 16:18 GFR Calculation 86.2 mL/min (90-130) L 12/12/22 16:18 Glucose 98 mg/dL (65-115) 12/12/22 16:18 Calculated Osmolality 291 mOsm/kg (285-295) 12/12/22 16:18 Calcium 8.8 mg/dL (8.5-10.5) 12/12/22 16:18 Total Bilirubin 0.3 mg/dL (0.15-1.2) 12/12/22 16:18 AST 19 U/L (0-32) 12/12/22 16:18 ALT 16 U/L (0-33) 12/12/22 16:18 Alkaline Phosphatase 97 U/L (35-105) 12/12/22 16:18 C-Reactive Protein 3.0 mg/L (0.0-4.9) 12/12/22 16:18 Total Protein 7.0 g/dL (6.6-8.7) 12/12/22 16:18 Albumin 4.4 g/dL (3.5-5.2) 12/12/22 16:18 Globulin 2.6 g/dL (1.3-4.6) 12/12/22 16:18 Lipase 17 U/L (13-60) 12/12/22 16:18 Urine Color Yellow (Yellow) 12/12/22 17:20 Urine Appearance Clear (CLEAR) 12/12/22 17:20 Urine pH 5 (5-7) 12/12/22 17:20 Ur Specific [place] 1.015 (1.005-1.030) 12/12/22 17:20 Urine Protein Neg (Negative) 12/12/22 17:20 Urine Glucose (UA) Norm (Normal) 12/12/22 17:20 Urine Ketones Negative (Negative) 12/12/22 17:20 Urine Blood 2+ (Negative) H 12/12/22 17:20 Urine Nitrate Negative (Negative) 12/12/22 17:20 Urine Bilirubin Neg (Negative) 12/12/22 17:20 Urine Urobilinogen Norm mg/dL (Negative) 12/12/22 17:20 Ur Leukocyte Esterase Negative (Negative) 12/12/22 17:20 Urine RBC 5-10 /hpf (0-2) H 12/12/22 17:20 Urine WBC 0-4 /hpf (0-5) H 12/12/22 17:20 Ur Squamous Epith Cells 0-4 /hpf (0-5) H 12/12/22 17:20 Amorphous Sediment Not Reportable 12/12/22 17:20 Urine Bacteria Not Reportable 12/12/22 17:20 Hyaline Casts Rare /lpf 12/12/22 17:20 Urine Mucus 4+ /hpf 12/12/22 17:20 Discharge Plan Discharge Patient Disposition: Home Clinical Impression: UTI (urinary tract infection) due to Enterococcus Constipation Qualifiers: Constipation type: unspecified constipation type Qualified Code(s): K59.00 - Constipation, unspecified Condition: Stable Prescriptions: New cephalexin 500 mg capsule 500 mg PO BID 7 Days Qty: 14 0RF No Action atorvastatin [Lipitor] 40 mg tablet 40 mg PO DAILY Qty: 30 5RF (DME) [place] to the left See Rx Instructions .Route .MEDSUPPLY Qty: 1 0RF Rx Instructions: As directed metoprolol tartrate 25 mg tablet 25 mg PO DAILY nitroglycerin 0.4 mg tablet, sublingual 0.4 mg sublingual Q5M PRN (Reason: chest pain) 30 Days Qty: 25 6RF Rx Instructions: until response; do not exceed 3 doses per episode multivitamin Tablet 1 tab PO QAM levothyroxine 25 mcg tablet 25 mcg PO QAM ibandronate 150 mg tablet 150 mg PO Q30D tizanidine 2 mg tablet 2 mg PO Q6H PRN (Reason: Spasms) albuterol sulfate 90 mcg/actuation HFA aerosol inhaler 2 puff inhalation Q4H PRN (Reason: shortness of breath or wheezing) omeprazole magnesium [Prilosec OTC] 20 mg tablet,delayed release (DR/EC) 20 mg PO QAM lisinopril 5 mg Tablet 5 mg PO DAILY PRN (Reason: Systolic blood pressure above 140 diastolic above 90) Qty: 20 0RF aspirin 81 mg tablet,delayed release (DR/EC) 81 mg PO DAILY meloxicam 7.5 mg Tablet 7.5 mg PO DAILY Excedrin Migraine 250-250-65 mg Tablet 1 tab PO Q6H PRN (Reason: Pain) Discharge Orders: Discharge ED (Routine); Ordered 12/12/22 Ordered By: Miguel Hobbs Referrals: Braden Owen NP [Primary Care Provider] - Discharge Diet: Usual diet Discharge Activity: Increase activity as tolerated Patient Instructions: Constipation (ED), Urinary Tract Infection in Women (ED) Activity Restrictions/Additional Instructions: Drink plenty of water and fluids. Healthy diet and exercise. Follow-up with primary care in 1 week for recheck. Take antibiotic cephalexin 500 mg twice a day for the next 7 days. Use [id number] stool softener to help with constipation. Return to ED for new concerns or worsening symptoms. Coding Level of Care Code ED Barrel Painter for Storm Wolfe
[2022-12-12 16:07] VITALS: BP 95/76; PULSE 100; RESP 16; TEMP 36.9; O2SAT 96; BMI 19.1
[2022-12-12 16:28] LABS: Basophils % 0.2 %; Eosinophils # 0.2 10^3/uL (0.0-0.8); Eosinophils % 3.9 %; Hematocrit 37.5 % (37.0-47.0); Hemoglobin 11.7 g/dL (11.5-15.3); Lymphocytes # 1.4 10^3/uL (0.8-4.8); Lymphocytes % 25.8 %; Mean Corpuscular HGB Conc 31.2 g/dL (30.0-36.0); Mean Corpuscular Hemoglobin 26.5 pg (28.0-34.0); Mean Corpuscular Volume 84.8 fl (81-99); Mean Platelet Volume 9.9 fL (7.4-10.4); Monocytes # 0.5 10^3/uL (0.2-0.9); Monocytes % 8.5 %; Neutrophils # 3.27 10^3/uL (1.8-7.7); Neutrophils % 61.4 %; Nucleated Red Blood Cells % 0 %; Platelet Count 210 10^3/cmm (130-400); Red Blood Count 4.42 10^6/uL (4.1-5.3); Red Cell Distribution Width 14.5 % (12.1-15.1); White Blood Count 5.3 10^3/uL (4.0-10.0)
[2022-12-12 16:35] VITALS: BP 128/92; PULSE 91; RESP 16; O2SAT 97
[2022-12-12] MEDS: ondansetron 2 mg/ML SDV 2 mL 4 MG IVP (16:47)
[2022-12-12] MEDS: morphine 4 mg/mL SDV 1 mL 2 MG IVP (16:47)
[2022-12-12] MEDS: sodium chloride 0.9% 250 ML IV (16:49)
[2022-12-12 16:51] VITALS: BP 128/92; PULSE 100; RESP 16; O2SAT 97
[2022-12-12 16:56] LABS: Alanine Aminotransferase 16 U/L (0-33); Albumin Level 4.4 g/dL (3.5-5.2); Alkaline Phosphatase 97 U/L (35-105); Anion Gap 16.6 (5-19); Aspartate Amino Transferase 19 U/L (0-32); Blood Urea Nitrogen 15 mg/dL (6-20); Calcium 8.8 mg/dL (8.5-10.5); Carbon Dioxide 24 mmol/L (22-29); Chloride 104 mmol/L (98-107); Globulin 2.6 g/dL (1.3-4.6); Glomerular Filtration Rate 86.2 mL/min (90-130); Glucose 98 mg/dL (65-115); Lipase 17 U/L (13-60); Osmolality Calculated 291 mOsm/kg (285-295); Potassium 4.6 mmol/L (3.5-5.1); Sodium 140 mmol/L (136-145); Total Bilirubin 0.3 mg/dL (0.15-1.2)
[2022-12-12 17:48] LABS: Glucose Urine UA Norm (Normal); Ketones Urine Negative (Negative); Protein Urine Neg (Negative); Specific Gravity, Urine 1.015 (1.005-1.030); Urine Appearance Clear (CLEAR); Urine Color Yellow (Yellow); pH Urine 5 (5-7)
[2022-12-12 17:49] LABS: Add Urine Culture? No; Add Urine Microscopic? YES; Bilirubin Urine Neg (Negative); Blood Urine 2+ (Negative); Hyaline Casts Urine RARE /lpf; Leukocyte Esterase Urine Negative (Negative); Mucus Urine 4+ /hpf; Nitrate Urine Negative (Negative); Squamous Epithelial Cell Urine 0-4 /hpf (0-5); Urobilinogen Urine Norm (Negative); WBC Urine 0-4 /hpf (0-5)
--- NOTE | 2022-12-12 17:57 | CTR_ITS ---
PROCEDURE INFORMATION: Exam: CT Abdomen And Pelvis Without Contrast Exam date and time: 12/12/2022 6:32 PM Age: 57 years old Clinical indication: Pain; Other: Flank; Prior surgery; Surgery date: 6+ months; Surgery type: Gb, appy, hysterectomy, gastrectomy; Additional info: Right flank pain TECHNIQUE: Imaging protocol: Computed tomography of the abdomen and pelvis without contrast. Radiation optimization: All CT scans at this facility use at least one of these dose optimization techniques: automated exposure control; mA and/or kV adjustment per patient size (includes targeted exams where dose is matched to clinical indication); or iterative reconstruction. REPORTING DATA: Count of CT and Cardiac NM exams in prior 12 months: This patient has received 3 known CTs and 0 known cardiac nuclear medicine studies in the 12 months prior to the current study. COMPARISON: CT abdomen pelvis w con* [id number] 03/16/2019 2:07 PM RADIATION DOSE METRICS: Total DLP (mGy-cm): 287.05 FINDINGS: Liver: Unremarkable.No mass. Gallbladder and bile ducts: There has been a cholecystectomy. There is no common bile duct dilation. Pancreas: Normal. No ductal dilation. Spleen: The spleen is normal. Adrenal glands: Unremarkable right adrenal gland. Unchanged 1.9 cm hypodense left adrenal nodule/adenoma. Kidneys and ureters: There is no evidence of hydronephrosis. There is no evidence of renal calcifications. Unchanged congenital malrotation of both kidneys. Stomach and bowel: Postoperative changes of partial gastrectomy. There is no evidence of intestinal perforation or obstruction. There is no evidence of colitis/diverticulitis. There is moderately excessive colonic stool content. There is abundant stool specially in the cecum and ascending colon. Appendix: There has been an appendectomy. Intraperitoneal space: Unremarkable. No free air. No significant fluid collection. Vasculature: The aorta is normal. Lymph nodes: Unremarkable.No enlarged lymph nodes. Urinary bladder: The bladder is normal. Reproductive: There has been a hysterectomy. There has been a tubal ligation. Bones/joints: Unremarkable. No acute fracture. Soft tissues: Unremarkable. CT/CT kidney stone [id number] IMPRESSION: 1. No acute abnormality. No hydronephrosis or nephrolithiasis. 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 2. There is a large amount of stool in the right colon. No evidence of colitis or bowel obstruction.
[2022-12-12 19:07] VITALS: RESP 16
[2022-12-12] MEDS: morphine 4 mg/mL SDV 1 mL IVP (19:07)
[2022-12-12] MEDS: ketorolac 30 mg/mL INJ 15 MG IVP (19:07)
== END 2022-12-12 19:20 | disposition home or self-care (01) ==
PROVIDERS: Emergency Provider Nurse Practitioner Family; PCP Nurse Practitioner Family
DX: N39.0 Urinary tract infection, site not specified (principal); B95.2 Enterococcus as the cause of diseases classified elsewhere; K59.00 Constipation, unspecified; Z79.82 Long term (current) use of aspirin; Z87.891 Personal history of nicotine dependence; I25.10 Atherosclerotic heart disease of native coronary artery without angina pectoris; E78.5 Hyperlipidemia, unspecified; J43.9 Emphysema, unspecified; I10 Essential (primary) hypertension
CPT/HCPCS: 36415; 74176; 80053; 81001; 83690; 85025; 86140; 96361; 96374; 96375; 96376; 99285; J1885; J2270; J2405; J7050

== ENCOUNTER 2022-12-28 19:01 | Emergency (ER) | payer MEDICAID, SELFPAY ==
[2022-12-28 19:02] VITALS: BMI 19.1
--- NOTE | 2022-12-28 19:02 | ED_ITS ---
HPI - Abdominal Pain General: Chief Complaint: Urogenital-Female Stated Complaint: right sided flank pain, previous UTI Time Seen by Provider: 12/28/22 19:01 History of Present Illness: Ms. Maguire is a 57-year-old lady presented to the emergency department for evaluation of worsening abdominal pain. She reports noticing urinary symptoms shortly before the 15th of the month. She was seen in the emergency department and diagnosed with urinary tract infection. She completed a course of antibiotics however is continued to worsen. She notes severe right flank pain with radiation to the groin. Worse with palpation and movement. Nausea and vomiting as well as urinary frequency and generalized malaise with subjective fevers chills. No other specific changes in health, exacerbating, or alleviating factors identified. Onset (ago): week(s) Pain Consistency: constant Location: R flank Severity: severe Quality: stabbing and aching Radiation: suprapubic Exacerbating factors: movement Associated Symptoms: Reports dysuria, fever(s), hematuria and nausea Review of Systems General: Reports: 10 or more systems reviewed and unremarkable except in HPI and below Const: Reports: fever(s) GI: Reports: nausea : Reports: dysuria and hematuria PFS ED PFSH: Medical History Atherosclerotic heart disease of [place] coronary artery with other forms of angina pectoris AV block, 2nd degree Chest pain Chronic migraine without aura, intractable, with status migrainosus Dyslipidemia Elevated blood pressure reading Emphysema of lung Quit in 2019 HTN (hypertension) Nausea and vomiting Recurrent vomiting Unstable angina Surgical History H/O colonoscopy History of appendectomy History of cholecystectomy History of colon resection History of hysterectomy History of surgery ULCERS AND PART OF STOMACH REMOVED Family History Mother CAD (coronary artery disease), Onset Age: 50 Cancer Lung disease Stroke Denies family history of Diabetes Clotting disorder Dementia Chronic kidney disease (CKD) Suicide Anesthesia complication Bleeding disorder Social History Smoking and tobacco status: former smoker (3-4years ago) Alcohol intake: former Substance/Drug Use: never Physical Exam Const: COMMON NORMALS: alert GENERAL APPEARANCE: cooperative and well developed HENMT: COMMON NORMALS: normocephalic and atraumatic HEAD & SCALP: normocephalic and atraumatic Eye: COMMON NORMALS: conjunctivae normal CONJUNCTIVA: Yes conjunctivae normal SCLERA: sclerae normal Neck/C-Spine: COMMON NORMALS: supple GENERAL: Yes trachea midline Resp: COMMON NORMALS: clear to auscultation bilaterally EFFORT & INSPECTION: Yes able to speak in complete sentences AUSCULTATION: clear to auscultation bilaterally Cardio: COMMON NORMALS: regular rate and regular rhythm RATE: regular rate RHYTHM: regular rhythm GI: COMMON NORMALS: Soft to palpation PALPATION: Yes Soft to palpation, Yes Tenderness to palpation present (GI), No Guarding due to palpation present (GI) and No Rigid due to palpation Extremity: GENERAL: Yes normal exam except as noted and No edema Neuro: COMMON NORMALS: moves all extremities SENSORIUM/ORIENTATION: Yes alert and No Orientation impaired Psych: COMMON NORMALS: mental status grossly normal and Normal thought process present THOUGHT PROCESS: Normal thought process present Course Vital Signs: Vital signs: Vital Signs Temperature 98.9 F 12/28/22 19:04 Pulse Rate 83 12/28/22 23:30 Respiratory Rate 18 12/28/22 19:04 Blood Pressure 109/73 12/28/22 23:30 Pulse Oximetry 96 12/28/22 23:30 Oxygen Delivery Me thod Room Air 12/28/22 23:30 MDM - Abdominal Pain Medical Decision Making 57-year-old lady presenting to the ER for flank and abdominal pain with recent diagnosis of urinary tract infection. Exam as above, patient is mildly tachycardic and mildly ill-appearing. Abdominal tenderness without evidence of acute surgical abdomen. Labs with no leukocytosis, normal hemoglobin and platelet count. Metabolic panel without significant derangement, renal function is preserved. Urinalysis with hematuria without other evidence of infection. Given urinalysis findings, physical exam findings, and clinical history provided CT imaging is appropriate. No evidence of pyelonephritis or nephrolithiasis on CT imaging. Overall no clear etiology of patient's symptoms identified. Patient does have constipation. Patient improved on reassessment after analgesia. She had small bowel movement with treatment of constipation in the emergency department. Most likely etiology of patient's symptoms is unclear that may be related to constipation. Appropriate for outpatient management and will be prescribed laxatives. She does require further outpatient evaluation of hematuria which can be arranged by primary care provider. The results of ED evaluation were discussed with the patient including prescriptions and/or symptomatic cares (if applicable) including appropriate and responsible use, followup plan, and return precautions. The patient verbalized understanding and felt safe for discharge. Medical Records I reviewed the patient's medical records. Lab Data I reviewed the patient's lab results. 12/28/22 20:20 12/28/22 20:20 Labs/Radiology: Radiology Impressions Abdomen/Pelvis CT 12/28/22 21:01 IMPRESSION: 1. Negative for acute inflammatory process in the abdomen or pelvis 2. Cholecystectomy. 3. Left adrenal 21 mm low-density nodule likely reflecting a benign adenoma. 4. Cholecystectomy. 5. Constipation. COMMENTS: Consistent with the [employer]'s Incidental Findings Committee white paper (J Am Rossana Radiol 2017): For any incidental adrenal lesion greater than or equal to 1 cm but less than or equal to 4 cm classified in this report as benign, likely benign, or containing fat (including classification as an adenoma or myelolipoma), no follow-up imaging is recommended per consensus recommendations based on imaging criteria. Further lab evaluation could be pursued if warranted based on clinical findings. Laboratory Results WBC 7.1 10^3/uL (4.0-10.0) 12/28/22 20:20 RBC 4.96 10^6/uL (4.1-5.3) 12/28/22 20:20 Hgb 13.2 g/dL (11.5-15.3) 12/28/22 20:20 Hct 42.0 % (37.0-47.0) 12/28/22 20:20 MCV 84.7 fl (81-99) 12/28/22 20:20 MCH 26.6 pg (28.0-34.0) L 12/28/22 20:20 MCHC 31.4 g/dL (30.0-36.0) 12/28/22 20:20 RDW 14.6 % (12.1-15.1) 12/28/22 20:20 Plt Count 250 10^3/cmm (130-400) 12/28/22 20:20 MPV 10.6 fL (7.4-10.4) H 12/28/22 20:20 Neut % (Auto) 65.7 % 12/28/22 20:20 Lymph % (Auto) 22.3 % 12/28/22 20:20 [place] % (Auto) 7.1 % 12/28/22 20:20 Eos % (Auto) 4.7 % 12/28/22 20:20 Baso % (Auto) 0.1 % 12/28/22 20:20 Neut # (Auto) 4.63 10^3/uL (1.8-7.7) 12/28/22 20:20 Lymph # (Auto) 1.6 10^3/uL (0.8-4.8) 12/28/22 20:20 [place] # (Auto) 0.5 10^3/uL (0.2-0.9) 12/28/22 20:20 Eos # (Auto) 0.3 10^3/uL (0.0-0.8) 12/28/22 20:20 Baso # (Auto) 0.0 10^3/uL (0.0-0.1) 12/28/22 20:20 Nucleated RBC % (auto) 0 % 12/28/22 20:20 Nucleated RBCs # 0.0 /100WBC 12/28/22 20:20 Sodium 138 mmol/L (136-145) 12/28/22 20:20 Potassium 4.6 mmol/L (3.5-5.1) 12/28/22 20:20 Chloride 103 mmol/L (98-107) 12/28/22 20:20 Carbon Dioxide 24 mmol/L (22-29) 12/28/22 20:20 Anion Gap 15.6 (5-19) 12/28/22 20:20 BUN 22 mg/dL (6-20) H 12/28/22 20:20 Creatinine 0.7 mg/dL (0.5-0.9) 12/28/22 20:20 GFR Calculation 86.2 mL/min (90-130) L 12/28/22 20:20 Glucose 101 mg/dL (65-115) 12/28/22 20:20 Calculated Osmolality 289 mOsm/kg (285-295) 12/28/22 20:20 Lactic Acid 1.4 mmol/L (0.5-2.2) 12/28/22 20:20 Calcium 9.1 mg/dL (8.5-10.5) 12/28/22 20:20 Total Bilirubin 0.2 mg/dL (0.15-1.2) 12/28/22 20:20 AST 18 U/L (0-32) 12/28/22 20:20 ALT 14 U/L (0-33) 12/28/22 20:20 Alkaline Phosphatase 119 U/L (35-105) H 12/28/22 20:20 Total Protein 7.8 g/dL (6.6-8.7) 12/28/22 20:20 Albumin 4.9 g/dL (3.5-5.2) 12/28/22 20:20 Globulin 2.9 g/dL (1.3-4.6) 12/28/22 20:20 Lipase 39 U/L (13-60) 12/28/22 20:20 Urine Color Colorless (Yellow) 12/28/22 20:35 Urine Appearance Clear (CLEAR) 12/28/22 20:35 Urine pH 5 (5-7) 12/28/22 20:35 Ur Specific [place] 1.015 (1.005-1.030) 12/28/22 20:35 Urine Protein Neg (Negative) 12/28/22 20:35 Urine Glucose (UA) Norm (Normal) 12/28/22 20:35 Urine Ketones Negative (Negative) 12/28/22 20:35 Urine Blood 2+ (Negative) H 12/28/22 20:35 Urine Nitrate Negative (Negative) 12/28/22 20:35 Urine Bilirubin Neg (Negative) 12/28/22 20:35 Urine Urobilinogen Norm mg/dL (Negative) 12/28/22 20:35 Ur Leukocyte Esterase Negative (Negative) 12/28/22 20:35 Urine RBC None /hpf (0-2) 12/28/22 20:35 Urine WBC None /hpf (0-5) 12/28/22 20:35 Ur Squamous Epith Cells 0-4 /hpf (0-5) H 12/28/22 20:35 Amorphous Sediment Not Reportable 12/28/22 20:35 Urine Bacteria Trace /hpf (NONE) 12/28/22 20:35 Discharge Plan Discharge Patient Disposition: Home Clinical Impression: Acute flank pain, Hematuria, Constipation Condition: Stable Prescriptions: New ondansetron 4 mg tablet,disintegrating 4 mg PO Q8H PRN (Reason: nausea and vomiting) Qty: 15 0RF Miralax 17 gram powder in packet 17 g PO TID PRN (Reason: constipation) Qty: 30 0RF No Action atorvastatin [Lipitor] 40 mg tablet 40 mg PO DAILY Qty: 30 5RF (DME) [place] to the left See Rx Instructions .Route .MEDSUPPLY Qty: 1 0RF Rx Instructions: As directed metoprolol tartrate 25 mg tablet 25 mg PO DAILY nitroglycerin 0.4 mg tablet, sublingual 0.4 mg sublingual Q5M PRN (Reason: chest pain) 30 Days Qty: 25 6RF Rx Instructions: until response; do not exceed 3 doses per episode multivitamin Tablet 1 tab PO QAM levothyroxine 25 mcg tablet 25 mcg PO QAM ibandronate 150 mg tablet 150 mg PO Q30D tizanidine 2 mg tablet 2 mg PO Q6H PRN (Reason: Spasms) albuterol sulfate 90 mcg/actuation HFA aerosol inhaler 2 puff inhalation Q4H PRN (Reason: shortness of breath or wheezing) omeprazole magnesium [Prilosec OTC] 20 mg tablet,delayed release (DR/EC) 20 mg PO QAM lisinopril 5 mg Tablet 5 mg PO DAILY PRN (Reason: Systolic blood pressure above 140 diastolic above 90) Qty: 20 0RF aspirin 81 mg tablet,delayed release (DR/EC) 81 mg PO DAILY meloxicam 7.5 mg Tablet 7.5 mg PO DAILY Excedrin Migraine 250-250-65 mg Tablet 1 tab PO Q6H PRN (Reason: Pain) Discharge Orders: Discharge ED (Routine); Ordered 12/28/22 Ordered By: Ryan Ram Referrals: Braden Owen NP [Primary Care Provider] - Discharge Diet: Clear Liquid Discharge Activity: Increase activity as tolerated Patient Instructions: Constipation (ED), Hematuria (ED), Abdominal Pain (ED), Flank Pain (ED), Opioid Safety Activity Restrictions/Additional Instructions: Thank you for visiting the emergency department. You were seen and evaluated for abdominal and flank pain. The exact cause of your symptoms is unclear though does not appear to need hospitalization at this time. As discussed you do have blood in your urine, this may be still residual from your urinary tract infection however I recommend follow-up with your primary care provider. CT demonstrates constipation which may explain your symptoms. Incidental findings include left adrenal low-density nodule likely reflecting a benign adenoma. Please start with a clear liquid diet. I recommend MiraLAX 3 times daily for th e next 3 days and then adjust between 1 and 3 times daily for multiple applesauce consistency stools per day. Return for worsening or uncontrolled symptoms or anything else that you are concerned about and feel needs emergency room evaluation. Coding Level of Care Code ED Beam Saw Operator for Storm Wolfe
[2022-12-28 19:04] VITALS: BP 143/95; PULSE 122; PULSE 123; RESP 16; RESP 18; TEMP 37.2; O2SAT 98
[2022-12-28 19:30] VITALS: BP 125/83; PULSE 103; O2SAT 96
[2022-12-28] MEDS: lactated ringers 1,000 ML 999 ML IV (20:23)
[2022-12-28] MEDS: ondansetron 2 mg/ML SDV 2 mL 4 MG IVP (20:24)
[2022-12-28] MEDS: morphine 4 mg/mL SDV 1 mL IVP (20:26)
[2022-12-28 20:34] LABS: Basophils % 0.1 %; Eosinophils # 0.3 10^3/uL (0.0-0.8); Eosinophils % 4.7 %; Hemoglobin 13.2 g/dL (11.5-15.3); Lymphocytes # 1.6 10^3/uL (0.8-4.8); Lymphocytes % 22.3 %; Mean Corpuscular HGB Conc 31.4 g/dL (30.0-36.0); Mean Corpuscular Hemoglobin 26.6 pg (28.0-34.0); Mean Corpuscular Volume 84.7 fl (81-99); Mean Platelet Volume 10.6 fL (7.4-10.4); Monocytes # 0.5 10^3/uL (0.2-0.9); Monocytes % 7.1 %; Neutrophils # 4.63 10^3/uL (1.8-7.7); Neutrophils % 65.7 %; Nucleated Red Blood Cells % 0 %; Platelet Count 250 10^3/cmm (130-400); Red Blood Count 4.96 10^6/uL (4.1-5.3); Red Cell Distribution Width 14.6 % (12.1-15.1); White Blood Count 7.1 10^3/uL (4.0-10.0)
[2022-12-28 20:45] VITALS: BP 126/74; PULSE 94; O2SAT 92
[2022-12-28 20:54] LABS: Specific Gravity, Urine 1.015 (1.005-1.030); Urine Appearance Clear (CLEAR); Urine Color Colorless (Yellow); pH Urine 5 (5-7)
[2022-12-28 20:55] LABS: Add Urine Microscopic? YES; Bilirubin Urine Neg (Negative); Blood Urine 2+ (Negative); Glucose Urine UA Norm (Normal); Ketones Urine Negative (Negative); Leukocyte Esterase Urine Negative (Negative); Nitrate Urine Negative (Negative); Protein Urine Neg (Negative); Urobilinogen Urine Norm (Negative)
[2022-12-28 20:56] LABS: Bacteria Urine TRACE /hpf; Squamous Epithelial Cell Urine 0-4 /hpf (0-5)
[2022-12-28 21:01] LABS: Alanine Aminotransferase 14 U/L (0-33); Albumin Level 4.9 g/dL (3.5-5.2); Alkaline Phosphatase 119 U/L (35-105); Anion Gap 15.6 (5-19); Aspartate Amino Transferase 18 U/L (0-32); Blood Urea Nitrogen 22 mg/dL (6-20); Calcium 9.1 mg/dL (8.5-10.5); Carbon Dioxide 24 mmol/L (22-29); Chloride 103 mmol/L (98-107); Globulin 2.9 g/dL (1.3-4.6); Glomerular Filtration Rate 86.2 mL/min (90-130); Glucose 101 mg/dL (65-115); Lipase 39 U/L (13-60); Osmolality Calculated 289 mOsm/kg (285-295); Potassium 4.6 mmol/L (3.5-5.1); Sodium 138 mmol/L (136-145); Total Bilirubin 0.2 mg/dL (0.15-1.2); Total Protein 7.8 g/dL (6.6-8.7)
--- NOTE | 2022-12-28 21:01 | CTR_ITS ---
PROCEDURE INFORMATION: Exam: CT Abdomen And Pelvis Without Contrast Exam date and time: 12/28/2022 9:24 PM Age: 57 years old Clinical indication: Abdominal pain; Flank; Right; Prior surgery; Surgery date: 6+ months; Surgery type: Hysterectomy, julian, partial colectomy, partial gastrectomy per PT; Additional info: R flank pain, hematuria TECHNIQUE: Imaging protocol: Computed tomography of the abdomen and pelvis without contrast. Radiation optimization: All CT scans at this facility use at least one of these dose optimization techniques: automated exposure control; mA and/or kV adjustment per patient size (includes targeted exams where dose is matched to clinical indication); or iterative reconstruction. REPORTING DATA: Count of CT and Cardiac NM exams in prior 12 months: This patient has received 4 known CTs and 0 known cardiac nuclear medicine studies in the 12 months prior to the current study. COMPARISON: CT kidney stone [id number] 12/12/2022 6:32 PM RADIATION DOSE METRICS: Total DLP (mGy-cm): 302.63 FINDINGS: Liver: Normal. No mass. Gallbladder and bile ducts: Cholecystectomy. Cholecystectomy. Pancreas: Normal. No ductal dilation. Spleen: Normal. No splenomegaly. Adrenal glands: Left adrenal 21 mm low-density nodule likely reflecting a benign adenoma. Kidneys and ureters: Normal. No hydronephrosis. Stomach and bowel: Constipation. Appendix: No evidence of appendicitis. Intraperitoneal space: Unremarkable. No free air. No significant fluid collection. Vasculature: Unremarkable. No abdominal aortic aneurysm. Lymph nodes: Unremarkable. No enlarged lymph nodes. Urinary bladder: Unremarkable as visualized. Reproductive: Unremarkable as visualized. Bones/joints: Unremarkable. No acute fracture. Soft tissues: Unremarkable. CT/CT kidney stone [id number] IMPRESSION: 1. Negative for acute inflammatory process in the abdomen or pelvis 2. Cholecystectomy. 3. Left adrenal 21 mm low-density nodule likely reflecting a benign adenoma. 4. Cholecystectomy. 5. Constipation. COMMENTS: Consistent with the [place] [employer]'s Incidental Findings Committee white paper (J Am Rossana Radiol 2017): For any incidental adrenal lesion greater than or equal to 1 cm but less than or equal to 4 cm classified in this report as benign, likely benign, or containing fat (including classification as an adenoma or myelolipoma), no follow-up imaging is recommended per consensus recommendations based on imaging criteria. Further lab evaluation could be pursued if warranted based on clinical findings.
[2022-12-28 21:03] LABS: Lactic Sepsis W/Reflex 1.4 mmol/L (0.5-2.2)
[2022-12-28] MEDS: dicyclomine 10 mg Capsule PO (22:26)
[2022-12-28] MEDS: lactulose oral liq 20 gm/30 mL UDC 30 GM PO (22:27)
[2022-12-28] MEDS: Fleet Enema 133 mL Enema PR (22:29)
[2022-12-28 23:30] VITALS: BP 109/73; PULSE 83; O2SAT 96
== END 2022-12-28 23:53 | disposition home or self-care (01) ==
PROVIDERS: Emergency Provider Emergency Medicine; PCP Nurse Practitioner Family
DX: R10.9 Unspecified abdominal pain (principal); R31.9 Hematuria, unspecified; K59.00 Constipation, unspecified
CPT/HCPCS: 74176; 80053; 81001; 83605; 83690; 85025; 87040; 96361; 96374; 96375; 99285; J2270; J2405; J7120

== ENCOUNTER 2023-02-01 03:44 | Emergency (ER) | payer MEDICAID, SELFPAY ==
[2023-02-01 03:47] VITALS: BP 134/94; PULSE 98; RESP 16; TEMP 36.8; O2SAT 98; BMI 17.6
[2023-02-01 03:52] VITALS: BP 134/94; PULSE 98; RESP 16; O2SAT 99
[2023-02-01 04:04] LABS: Basophils % 0.2 %; Eosinophils # 0.1 10^3/uL (0.0-0.8); Eosinophils % 0.9 %; Hematocrit 38.5 % (37.0-47.0); Hemoglobin 12.1 g/dL (11.5-15.3); Lymphocytes # 1.1 10^3/uL (0.8-4.8); Lymphocytes % 10.4 %; Mean Corpuscular HGB Conc 31.4 g/dL (30.0-36.0); Mean Corpuscular Hemoglobin 26.4 pg (28.0-34.0); Mean Corpuscular Volume 83.9 fl (81-99); Mean Platelet Volume 10.1 fL (7.4-10.4); Monocytes # 0.6 10^3/uL (0.2-0.9); Monocytes % 5.2 %; Neutrophils # 8.86 10^3/uL (1.8-7.7); Neutrophils % 82.9 %; Nucleated Red Blood Cells % 0 %; Platelet Count 242 10^3/cmm (130-400); Red Blood Count 4.59 10^6/uL (4.1-5.3); Red Cell Distribution Width 14.3 % (12.1-15.1); White Blood Count 10.7 10^3/uL (4.0-10.0)
[2023-02-01 04:13] LABS: Add Urine Microscopic? YES; Bilirubin Urine 1+ (Negative); Blood Urine 3+ (Negative); Glucose Urine UA Norm (Normal); Ketones Urine 2+ (Negative); Leukocyte Esterase Urine Negative (Negative); Nitrate Urine Negative (Negative); Protein Urine Neg (Negative); Specific Gravity, Urine 1.025 (1.005-1.030); Urine Appearance Clear (CLEAR); Urine Color Yellow (Yellow); Urobilinogen Urine Norm (Negative); pH Urine 5 (5-7)
[2023-02-01 04:19] LABS: Bacteria Urine TRACE /hpf; Mucus Urine 1+ /hpf; RBC Urine 0-4 /hpf (0-2); Squamous Epithelial Cell Urine 0-4 /hpf (0-5)
[2023-02-01 04:22] LABS: Alanine Aminotransferase 11 U/L (0-33); Albumin Level 4.5 g/dL (3.5-5.2); Alkaline Phosphatase 98 U/L (35-105); Aspartate Amino Transferase 21 U/L (0-32); Blood Urea Nitrogen 17 mg/dL (6-20); Calcium 9.6 mg/dL (8.5-10.5); Carbon Dioxide 24 mmol/L (22-29); Chloride 100 mmol/L (98-107); Globulin 2.7 g/dL (1.3-4.6); Glomerular Filtration Rate 86.2 mL/min (90-130); Glucose 131 mg/dL (65-115); Lipase 14 U/L (13-60); Osmolality Calculated 289 mOsm/kg (285-295); Sodium 138 mmol/L (136-145); Total Bilirubin 0.2 mg/dL (0.15-1.2); Total Protein 7.2 g/dL (6.6-8.7)
[2023-02-01 04:23] LABS: Lactic Sepsis W/Reflex 1.1 mmol/L (0.5-2.2)
[2023-02-01 04:29] LABS: Anion Gap 18.4 (5-19); Potassium 4.4 mmol/L (3.5-5.1)
--- NOTE | 2023-02-01 04:30 | W.ED.ABDPA2 ---
HPI - Abdominal Pain General: Chief Complaint: Abdominal Pain Stated Complaint: abd pain Time Seen by Provider: 02/01/23 03:50 Source: patient History of Present Illness: 57-year-old female presenting with generalized abdominal and right flank pain. She says this started around 11 PM last night. She has been nauseated but has not vomited. No fever. Last bowel movement was yesterday. No blood in the stool. She has a history of multiple belly surgeries including cholecystectomy, colectomy, and gastrectomy for bleeding ulcers . She is tearful on my interview and examination This is her third visit in the last 5 weeks or so for similar complaints. She has had 2 CT scans during that time. MD elicited complaint: abdominal pain and flank pain Pertinent past history: constipation Location: Diffuse and R flank Quality: cramping and stabbing Radiation: none Migration to: no migration Exacerbating factors: movement Relieving factors: nothing Associated Symptoms: Reports constipation; Denies belching, chills, coffee ground emesis, diarrhea, fever(s), hematochezia and vomiting Review of Systems Const: Denies: fever(s) or chills ENMT: Denies: throat pain Card: Denies: chest pain Resp: Denies: dyspnea GI: Reports: constipation; Denies: vomiting, coffee ground emesis, diarrhea, belching or hematochezia Skin/Breast: Denies: rash Psych: Reports: anxiety PFSH ED PFSH: Medical History Atherosclerotic heart disease of [place] coronary artery with other forms of angina pectoris AV block, 2nd degree Chest pain Chronic migraine without aura, intractable, with status migrainosus Dyslipidemia Elevated blood pressure reading Emphysema of lung Quit in 2020 HTN (hypertension) Nausea and vomiting Recurrent vomiting Unstable angina Surgical History H/O colonoscopy History of appendectomy History of cholecystectomy History of colon resection History of hysterectomy History of surgery ULCERS AND PART OF STOMACH REMOVED Family History Mother CAD (coronary artery disease), Onset Age: 50 Cancer Lung disease Stroke Denies family history of Diabetes Clotting disorder Dementia Chronic kidney disease (CKD) Suicide Anesthesia complication Bleeding disorder Social History Smoking and tobacco status: former smoker (3-4years ago) Alcohol intake: former Substance/Drug Use: never Physical Exam Const: GENERAL APPEARANCE: cooperative, anxious and frail appearing (Mildly); not ill appearing HENMT: COMMON NORMALS: normocephalic, atraumatic and Normal external nose present HEAD & SCALP: normocephalic and atraumatic FACE & SINUS: normal facial exam and face symmetric NOSE: Normal external nose present Eye: COMMON NORMALS: Equal, round and reactive pupils present and EOMs intact bilaterally PUPIL: Yes Equal, round and reactive pupils present Neck/C-Spine: GENERAL: Yes trachea midline Chest: CHEST: Yes Symmetrical chest wall rise Resp: COMMON NORMALS: normal respiratory effort, No retractions, No use of accessory muscles and clear to auscultation bilaterally AUSCULTATION: clear to auscultation bilaterally Cardio: COMMON NORMALS: regular rate and regular rhythm RATE: regular rate RHYTHM: regular rhythm GI: COMMON NORMALS: Normal to inspection, nondistended, normoactive bowel sounds present and Soft to palpation PALPATION: Yes Soft to palpation and Yes Tenderness to palpation present (GI) (Diffuse, mid right greater than left) : BLADDER/KIDNEY EXAM: Yes CVA tenderness on the right Back/Pelvis: GENERAL BACK: Yes CVA tenderness Extremity: COMMON NORMALS: no pedal edema Neuro: [place] COMA SCALE: document GCS findings [place] coma scale eye opening: Spontaneous [place] coma scale verbal response: Orientated [place] coma scale motor response: Obey commands [place] coma scale total score: 15 SENSORY EXAM: Yes extremities (intact) Psych: COMMON NORMALS: speech normal SPEECH: Yes normal speech Skin: COMMON NORMALS: no rashes or lesions noted GENERAL SKIN EXAM: no rashes or lesions noted Course Vital Signs: Vital signs: Vital Signs Temperature 98.3 F 02/01/23 03:47 Pulse Rate 112 H 02/01/23 04:36 Respiratory Rate 16 02/01/23 04:36 Blood Pressure 143/88 02/01/23 04:36 Pulse Oximetry 97 02/01/23 04:36 MDM - Abdominal Pain Medical Decision Making 57-year-old female with generalized belly and right flank pain. White blood cell count is 10. 83% neutrophils. BMP is not remarkable. Lactic acid is 1.1. Creatinine is 0.7. CRP is only 3. Liver enzymes are normal. Urinalysis shows 0-4 reds. This patient has had 2 CT scans for the same complaint in the last 5 weeks. She received IV morphine and Zofran, and is feeling much better. With no significant change in her laboratory, she will be allowed home. Lab Data 02/01/23 04:00 02/01/23 04:00 Labs/Radiology: Laboratory Results WBC 10.7 10^3/uL (4.0-10.0) H 02/01/23 04:00 RBC 4.59 10^6/uL (4.1-5.3) 02/01/23 04:00 Hgb 12.1 g/dL (11.5-15.3) 02/01/23 04:00 Hct 38.5 % (37.0-47.0) 02/01/23 04:00 MCV 83.9 fl (81-99) 02/01/23 04:00 MCH 26.4 pg (28.0-34.0) L 02/01/23 04:00 MCHC 31.4 g/dL (30.0-36.0) 02/01/23 04:00 RDW 14.3 % (12.1-15.1) 02/01/23 04:00 Plt Count 242 10^3/cmm (130-400) 02/01/23 04:00 MPV 10.1 fL (7.4-10.4) 02/01/23 04:00 Neut % (Auto) 82.9 % 02/01/23 04:00 Lymph % (Auto) 10.4 % 02/01/23 04:00 [place] % (Auto) 5.2 % 02/01/23 04:00 Eos % (Auto) 0.9 % 02/01/23 04:00 Baso % (Auto) 0.2 % 02/01/23 04:00 Neut # (Auto) 8.86 10^3/uL (1.8-7.7) H 02/01/23 04:00 Lymph # (Auto) 1.1 10^3/uL (0.8-4.8) 02/01/23 04:00 [place] # (Auto) 0.6 10^3/uL (0.2-0.9) 02/01/23 04:00 Eos # (Auto) 0.1 10^3/uL (0.0-0.8) 02/01/23 04:00 Baso # (Auto) 0.0 10^3/uL (0.0-0.1) 02/01/23 04:00 Nucleated RBC % (auto) 0 % 02/01/23 04:00 Nucleated RBCs # 0.0 /100WBC 02/01/23 04:00 Sodium 138 mmol/L (136-145) 02/01/23 04:00 Potassium 4.4 mmol/L (3.5-5.1) 02/01/23 04:00 Chloride 100 mmol/L (98-107) 02/01/23 04:00 Carbon Dioxide 24 mmol/L (22-29) 02/01/23 04:00 Anion Gap 18.4 (5-19) 02/01/23 04:00 BUN 17 mg/dL (6-20) 02/01/23 04:00 Creatinine 0.7 mg/dL (0.5-0.9) 02/01/23 04:00 GFR Calculation 86.2 mL/min (90-130) L 02/01/23 04:00 Glucose 131 mg/dL (65-115) H 02/01/23 04:00 Calculated Osmolality 289 mOsm/kg (285-295) 02/01/23 04:00 Lactic Acid 1.1 mmol/L (0.5-2.2) 02/01/23 04:00 Calcium 9.6 mg/dL (8.5-10.5) 02/01/23 04:00 Total Bilirubin 0.2 mg/dL (0.15-1.2) 02/01/23 04:00 AST 21 U/L (0-32) 02/01/23 04:00 ALT 11 U/L (0-33) 02/01/23 04:00 Alkaline Phosphatase 98 U/L (35-105) 02/01/23 04:00 C-Reactive Protein 3.0 mg/L (0.0-4.9) 02/01/23 04:00 Total Protein 7.2 g/dL (6.6-8.7) 02/01/23 04:00 Albumin 4.5 g/dL (3.5-5.2) 02/01/23 04:00 Globulin 2.7 g/dL (1.3-4.6) 02/01/23 04:00 Lipase 14 U/L (13-60) 02/01/23 04:00 Urine Color Yellow (Yellow) 02/01/23 04:03 Urine Appearance Clear (CLEAR) 02/01/23 04:03 Urine pH 5 (5-7) 02/01/23 04:03 Ur Specific [place] 1.025 (1.005-1.030) 02/01/23 04:03 Urine Protein Neg (Negative) 02/01/23 04:03 Urine Glucose (UA) Norm (Normal) 02/01/23 04:03 Urine Ketones 2+ (Negative) H 02/01/23 04:03 Urine Blood 3+ (Negative) H 02/01/23 04:03 Urine Nitrate Negative (Negative) 02/01/23 04:03 Urine Bilirubin 1+ (Negative) H 02/01/23 04:03 Urine Urobilinogen Norm mg/dL (Negative) 02/01/23 04:03 Ur Leukocyte Esterase Negative (Negative) 02/01/23 04:03 Urine RBC 0-4 /hpf (0-2) H 02/01/23 04:03 Urine WBC None /hpf (0-5) 02/01/23 04:03 Ur Squamous Epith Cells 0-4 /hpf (0-5) H 02/01/23 04:03 Amorphous Sediment Not Reportable 02/01/23 04:03 Urine Bacteria Trace /hpf (NONE) 02/01/23 04:03 Urine Mucus 1+ /hpf 02/01/23 04:03 Discharge Plan Discharge Patient Disposition: Home Clinical Impression: Constipation, Abdominal pain Condition: Stable Prescriptions: No Action atorvastatin [Lipitor] 40 mg tablet 40 mg PO DAILY Qty: 30 5RF (DME) [place] to the left See Rx Instructions .Route .MEDSUPPLY Qty: 1 0RF Rx Instructions: As directed metoprolol tartrate 25 mg tablet 25 mg PO DAILY nitroglycerin 0.4 mg tablet, sublingual 0.4 mg sublingual Q5M PRN (Reason: chest pain) 30 Days Qty: 25 6RF Rx Instructions: until response; do not exceed 3 doses per episode multivitamin Tablet 1 tab PO QAM levothyroxine 25 mcg tablet 25 mcg PO QAM ibandronate 150 mg tablet 150 mg PO Q30D tizanidine 2 mg tablet 2 mg PO Q6H PRN (Reason: Spasms) albuterol sulfate 90 mcg/actuation HFA aerosol inhaler 2 puff inhalation Q4H PRN (Reason: shortness of breath or wheezing) omeprazole magnesium [Prilosec OTC] 20 mg tablet,delayed release (DR/EC) 20 mg PO QAM lisinopril 5 mg Tablet 5 mg PO DAILY PRN (Reason: Systolic blood pressure above 140 diastolic above 90) Qty: 20 0RF aspirin 81 mg tablet,delayed release (DR/EC) 81 mg PO DAILY meloxicam 7.5 mg Tablet 7.5 mg PO DAILY Excedrin Migraine 250-250-65 mg Tablet 1 tab PO Q6H PRN (Reason: Pain) ondansetron 4 mg tablet,disintegrating 4 mg PO Q8H PRN (Reason: nausea and vomiting) Qty: 15 0RF Miralax 17 gram powder in packet 17 g PO TID PRN (Reason: constipation) Qty: 30 0RF Discharge Orders: Discharge ED (Routine); Ordered 02/01/23 Ordered By: Stefan Bond Referrals: Braden Owen WIRE PHOTO OPERATOR [Primary Care Provider] - 1-3 days Patient Instructions: Abdominal Pain (ED), Opioid Safety, Pain Management Activity Restrictions/Additional Instructions: Return for fever greater than 100, worsening pain despite treatment, vomiting liquids or medications, other concerning symptoms. See your doctor this coming week. Take the medications you were dispensed from the ER when you get home, and stay close to the toilet, as they will cause you to have bowel movements. Coding Level of Care Code ED Mixer Diamond Powder for Storm Wolfe
[2023-02-01 04:31] VITALS: RESP 16; O2SAT 98
[2023-02-01] MEDS: morphine 4 mg/mL SDV 1 mL IVP (04:31)
[2023-02-01] MEDS: ondansetron 2 mg/ML SDV 2 mL 4 MG IVP (04:31)
[2023-02-01 04:36] VITALS: BP 143/88; PULSE 112; RESP 16; O2SAT 97
[2023-02-01] MEDS: lactulose oral liq 20 gm/30 mL UDC 30 GM PO (05:31)
[2023-02-01] MEDS: magnesium hydroxide 30 mL UDC PO (05:32)
[2023-02-01] MEDS: mineral oil 30 mL UDC PO (05:32)
[2023-02-01 05:41] VITALS: BP 143/88; PULSE 112; RESP 16; TEMP 36.8; O2SAT 97
== END 2023-02-01 05:42 | disposition home or self-care (01) ==
PROVIDERS: Emergency Provider Emergency Medicine; PCP Nurse Practitioner Family
DX: K59.00 Constipation, unspecified (principal); Z79.82 Long term (current) use of aspirin; Z87.891 Personal history of nicotine dependence; I25.10 Atherosclerotic heart disease of native coronary artery without angina pectoris; E78.5 Hyperlipidemia, unspecified; J43.9 Emphysema, unspecified; I10 Essential (primary) hypertension
CPT/HCPCS: 80053; 81001; 83605; 83690; 85025; 86140; 96374; 96375; 99284; J2270; J2405

== ENCOUNTER 2023-03-01 15:13 | Emergency (ER) | payer MEDICAID, SELFPAY ==
[2023-03-01 15:17] VITALS: BP 137/88; PULSE 104; RESP 18; O2SAT 98
--- NOTE | 2023-03-01 15:30 | XRR_ITS ---
PROCEDURE INFORMATION: Exam: XR Lumbosacral Spine Exam date and time: 03/01/2023 3:47 PM Age: 58 years old Clinical indication: Injury or trauma; Fall; Blunt trauma (contusions or hematomas); Additional info: Fall with back pain TECHNIQUE: Imaging protocol: Radiologic exam of the lumbosacral spine. Views: 2 or 3 views. COMPARISON: CT kidney stone [id number] 12/28/2022 9:24 PM FINDINGS: Bones/joints: Normal. No acute fracture. Normal alignment. Soft tissues: Metallic surgical clips are present in the right upper quadrant and epigastric region. Surgical sutures are present in the left upper quadrant Metallic surgical clips also present in the pelvis these findings are stable since prior examination XR/XR lumbar spine 2-3V* [id number] IMPRESSION: 1. No acute findings. 2. Metallic surgical clips and sutures in the upper abdomen and pelvis
--- NOTE | 2023-03-01 15:41 | ED_ITS ---
Documented by User: Maite Lucas PA-C 03/01/23 16:25 HPI - Fall General: Chief Complaint: Fall Stated Complaint: fall Time Seen by Provider: 03/01/23 15:30 Source: patient Mode of arrival: EMS Limitations: no limitations History of Present Illness: 58-year-old female presents to the ER today for worsening low back pain. Patient reports this began on Thursday after she fell while rollerskating. Patient reports she fell flat onto her bottom/tailbone. Patient reports the pain was severe so she has been at home taking it easy the last couple of days. Patient reports today she was trying to walk when a sharp pain radiated from her low back into her right foot. Patient reports this was a severe sharp pain that took her to the ground and she fell again, landing on her back/tailbone. Patient denies any loss of bowel or bladder control. Patient reports she is not getting any relief of with tizanidine at home. She was given morphine on the way here which took the edge off but pain is still present. Patient reports a history of bulging disks but denies any history of herniations. Review of Systems General: Reports: 10 or more systems reviewed and unremarkable except in HPI and below PFSH ED PFSH: Medical History Atherosclerotic heart disease of [place] coronary artery with other forms of angina pectoris AV block, 2nd degree Chest pain Chronic migraine without aura, intractable, with status migrainosus Dyslipidemia Elevated blood pressure reading Emphysema of lung Quit in 2019 HTN (hypertension) Nausea and vomiting Recurrent vomiting Unstable angina Surgical History H/O colonoscopy History of appendectomy History of cholecystectomy History of colon resection History of hysterectomy History of surgery ULCERS AND PART OF STOMACH REMOVED Family History Mother CAD (coronary artery disease), Onset Age: 50 Cancer Lung disease Stroke Denies family history of Diabetes Clotting disorder Dementia Chronic kidney disease (CKD) Suicide Anesthesia complication Bleeding disorder Social History Smoking and tobacco status: former smoker (3-4years ago) Alcohol intake: former Substance/Drug Use: never Physical Exam Const: COMMON NORMALS: average body habitus, patient oriented x3, no limitations, alert and well nourished; apparent distress (Appears uncomfortable) Neck/C-Spine: CERVICAL SPINE: Yes cervical ROM normal Resp: COMMON NORMALS: normal respiratory effort, No retractions and clear to auscultation bilaterally AUSCULTATION: clear to auscultation bilaterally Cardio: COMMON NORMALS: regular rate and regular rhythm RATE: regular rate RHYTHM: regular rhythm Back/Pelvis: OTHER: Patient has tenderness over the vertebral processes of the L-spine into the [place]/coccyx. No bruising noted. No swelling. Tenderness over the right SI joint is also noted with paraspinal muscle spasms. Extremity: COMMON NORMALS: normal to inspection, full ROM and no pedal edema Neuro: COMMON NORMALS: patient oriented x3 SENSORIUM/ORIENTATION: Yes alert Psych: COMMON NORMALS: mental status grossly normal, Normal thought process present and cooperative THOUGHT PROCESS: Normal thought process present Skin: COMMON NORMALS: no rashes or lesions noted and no wounds GENERAL SKIN EXAM: no rashes or lesions noted Course ED course: Patient presents the ER today for worsening low back pain since Thursday. Patient fell and landed flat on her bottom while skating Thursday night. Patient has a history of bulging disks. Patient reports the pain is not improving with tizanidine which is what she had at home. Patient had such a severe pain today into her right foot that she again fell, landing on her bottom. Patient denies any loss of bowel or bladder control. Denies any numbness or tingling. Patient is noted to have discomfort when sitting and with movement. Strength is normal bilaterally. We will get an x-ray of the L-spine at this time. Patient given morphine in route and that did take the edge off. Patient reports she is allergic to a lot of medications and morphine is usually all that works. Vital Signs: Vital signs: Vital Signs Pulse Rate 86 03/01/23 16:43 Respiratory Rate 18 03/01/23 15:17 Blood Pressure 137/88 03/01/23 15:17 Pulse Oximetry 99 03/01/23 16:43 Oxygen Delivery Me thod Room Air 03/01/23 15:17 MDM - Fall Medical Decision Making Imaging does not indicate any acute findings. Patient does have history of bulging disks and may have worsened to that. We will go ahead and treat with a Medrol Dosepak and try Robaxin instead of the tizanidine. Patient requesting morphine however I think that is more than patient needs at home. She is okay to continue any home pain medication she has been taking. Patient was given the morphine in route to the ER. Recommend warm, moist heat. Topical muscle rub recommended. If pain persist beyond 5 to 7 days, follow-up with PCP. Return precautions discussed. Patient verbalized understanding and was in agreement with the treatment plan. Lab Data Radiology Impressions Lumbar Spine X-Ray 03/01/23 15:30 IMPRESSION: 1. No acute findings. 2. Metallic surgical clips and sutures in the upper abdomen and pelvis Critical Care Time Critical Care Time: Critical Care Time: No Discharge Plan Discharge Patient Disposition: Home Clinical Impression: Acute low back pain Qualifiers: Back pain laterality: right Sciatica presence: with sciatica Sciatica laterality: sciatica of right side Qualified Code(s): M54.41 - Lumbago with sciatica, right side Condition: Stable Prescriptions: New methocarbamol 750 mg tablet 750 mg PO Q8H Qty: 21 0RF Medrol (Gera) 4 mg tablets,dose pack See Rx Instructions .ROUTE .COMPLEX Qty: 21 0RF Rx Instructions: orally per package directions No Action atorvastatin [Lipitor] 40 mg tablet 40 mg PO DAILY Qty: 30 5RF (DME) Cam Boot to the left See Rx Instructions .Route .MEDSUPPLY Qty: 1 0RF Rx Instructions: As directed metoprolol tartrate 25 mg tablet 25 mg PO DAILY multivitamin Tablet 1 tab PO QAM levothyroxine 25 mcg tablet 25 mcg PO QAM ibandronate 150 mg tablet 150 mg PO Q30D tizanidine 2 mg tablet 2 mg PO Q6H PRN (Reason: Spasms) albuterol sulfate 90 mcg/actuation HFA aerosol inhaler 2 puff inhalation Q4H PRN (Reason: shortness of breath or wheezing) omeprazole magnesium [Prilosec OTC] 20 mg tablet,delayed release (DR/EC) 20 mg PO QAM lisinopril 5 mg Tablet 5 mg PO DAILY PRN (Reason: Systolic blood pressure above 140 diastolic above 90) Qty: 20 0RF Excedrin Migraine 250-250-65 mg Tablet 1 tab PO Q6H PRN (Reason: Pain) ondansetron 4 mg tablet,disintegrating 4 mg PO Q8H PRN (Reason: nausea and vomiting) Qty: 15 0RF Discharge Orders: Discharge ED (Routine); Ordered 03/01/23 Ordered By: Maite Lucas Referrals: Braden Owen AUTO SEAT COVER INSTALLER [Primary Care Provider] - Discharge Diet: Usual diet Discharge Activity: Increase activity as tolerated Patient Instructions: Opioid Safety, Pain Management Activity Restrictions/Additional Instructions: Take Medrol Dosepak and Robaxin as prescribed. Hold the tizanidine while taking the Robaxin. Warm, moist heat recommended. Topical muscle rub such as Bengay or IcyHot also recommended. Also try Voltaren gel which is a topical NSAID. Follow-up with PCP in 1 week if no improvement. Return to the ER with new or worsening symptoms. Coding Level of Care Code ED Commercial Floor Covering Installer for Chg Fwd Documented by User: Narendra Graham DO 03/02/23 06:45 HPI - Fall General: Chief Complaint: Fall Stated Complaint: fall Time Seen by Provider: 03/01/23 15:30 PFSH ED PFSH: Medical History Atherosclerotic heart disease of [place] coronary artery with other forms of angina pectoris AV block, 2nd degree Chest pain Chronic migraine without aura, intractable, with status migrainosus Dyslipidemia Elevated blood pressure reading Emphysema of lung Quit in 2019 HTN (hypertension) Nausea and vomiting Recurrent vomiting Unstable angina Surgical History H/O colonoscopy History of appendectomy History of cholecystectomy History of colon resection History of hysterectomy History of surgery ULCERS AND PART OF STOMACH REMOVED Family History Mother CAD (coronary artery disease), Onset Age: 50 Cancer Lung disease Stroke Denies family history of Diabetes Clotting disorder Dementia Chronic kidney disease (CKD) Suicide Anesthesia complication Bleeding disorder Social History Smoking and tobacco status: former smoker (3-4years ago) Alcohol intake: former Substance/Drug Use: never Course Vital Signs: Vital signs: Vital Signs Pulse Rate 86 03/01/23 16:43 Respiratory Rate 18 03/01/23 15:17 Blood Pressure 137/88 03/01/23 15:17 Pulse Oximetry 99 03/01/23 16:43 Oxygen Delivery Me thod Room Air 03/01/23 15:17 MDM - Fall Medical Decision Making Imaging does not indicate any acute findings. Patient does have history of bulging disks and may have worsened to that. We will go ahead and treat with a Medrol Dosepak and try Robaxin instead of the tizanidine. Patient requesting morphine however I think that is more than patient needs at home. She is okay to continue any home pain medication she has been taking. Patient was given the morphine in route to the ER. Recommend warm, moist heat. Topical muscle rub recommended. If pain persist beyond 5 to 7 days, follow-up with PCP. Return precautions discussed. Patient verbalized understanding and was in agreement with the treatment plan. Chart reviewed and patient discussed with midlevel. Agree with assessment and plan. Lab Data Radiology Impressions Lumbar Spine X-Ray 03/01/23 15:30 IMPRESSION: 1. No acute findings. 2. Metallic surgical clips and sutures in the upper abdomen and pelvis Discharge Plan Discharge Patient Disposition: Home Clinical Impression: Acute low back pain Qualifiers: Back pain laterality: right Sciatica presence: with sciatica Sciatica laterality: sciatica of right side Qualified Code(s): M54.41 - Lumbago with sciatica, right side Condition: Stable Prescriptions: New methocarbamol 750 mg tablet 750 mg PO Q8H Qty: 21 0RF Medrol (Gera) 4 mg tablets,dose pack See Rx Instructions .ROUTE .COMPLEX Qty: 21 0RF Rx Instructions: orally per package directions No Action atorvastatin [Lipitor] 40 mg tablet 40 mg PO DAILY Qty: 30 5RF (DME) [place] to the left See Rx Instructions .Route .MEDSUPPLY Qty: 1 0RF Rx Instructions: As directed metoprolol tartrate 25 mg tablet 25 mg PO DAILY multivitamin Tablet 1 tab PO QAM levothyroxine 25 mcg tablet 25 mcg PO QAM ibandronate 150 mg tablet 150 mg PO Q30D tizanidine 2 mg tablet 2 mg PO Q6H PRN (Reason: Spasms) albuterol sulfate 90 mcg/actuation HFA aerosol inhaler 2 puff inhalation Q4H PRN (Reason: shortness of breath or wheezing) omeprazole magnesium [Prilosec OTC] 20 mg tablet,delayed release (DR/EC) 20 mg PO QAM lisinopril 5 mg Tablet 5 mg PO DAILY PRN (Reason: Systolic blood pressure above 140 diastolic above 90) Qty: 20 0RF Excedrin Migraine 250-250-65 mg Tablet 1 tab PO Q6H PRN (Reason: Pain) ondansetron 4 mg tablet,disintegrating 4 mg PO Q8H PRN (Reason: nausea and vomiting) Qty: 15 0RF Discharge Orders: Discharge ED (Routine); Ordered 03/01/23 Ordered By: Maite Lucas Referrals: Braden Owen, AUTO SEAT COVER INSTALLER [Primary Care Provider] - Discharge Diet: Usual diet Discharge Activity: Increase activity as tolerated Patient Instructions: Opioid Safety, Pain Management Activity Restrictions/Additional Instructions: Take Medrol Dosepak and Robaxin as prescribed. Hold the tizanidine while taking the Robaxin. Warm, moist heat recommended. Topical muscle rub such as Bengay or IcyHot also recommended. Also try Voltaren gel which is a topical NSAID. Follow-up with PCP in 1 week if no improvement. Return to the ER with new or worsening symptoms. Coding Level of Care Code ED Commercial Floor Covering Installer for Storm Wolfe
[2023-03-01 16:43] VITALS: PULSE 86; O2SAT 99
== END 2023-03-01 16:44 | disposition home or self-care (01) ==
PROVIDERS: Emergency Provider Physician Assistant; PCP Nurse Practitioner Family
DX: M54.41 Lumbago with sciatica, right side (principal); Z87.891 Personal history of nicotine dependence; E78.5 Hyperlipidemia, unspecified; J43.9 Emphysema, unspecified; I10 Essential (primary) hypertension
CPT/HCPCS: 72100; 99283

== ENCOUNTER 2023-05-16 16:08 | Observation (INO) | payer MEDICAID, SELFPAY ==
--- NOTE | 2023-05-16 16:13 | XRR_ITS ---
PROCEDURE INFORMATION: Exam: XR Chest Exam date and time: 05/16/2023 4:22 PM Age: 58 years old Clinical indication: Pain; Chest pressure TECHNIQUE: Imaging protocol: Radiologic exam of the chest. Views: 1 view. COMPARISON: 1. CT lung screening [id number] 11/27/2022 11:31 AM 2. CR XR chest 1V portable [id number] 04/21/2022 9:10 PM FINDINGS: Lungs: Unremarkable. No consolidation. Pleural spaces: Unremarkable. No pleural effusion. No pneumothorax. Heart/Mediastinum: Unremarkable. No cardiomegaly. Bones/joints: Unremarkable. XR/XR chest 1V portable [id number] IMPRESSION: No acute findings.
[2023-05-16 16:15] VITALS: BP 149/90; PULSE 98; RESP 18; TEMP 36.7; O2SAT 98; BMI 17.6
--- NOTE | 2023-05-16 16:15 | W.ED.CHESTPA ---
HPI - Chest Pain General: Chief Complaint: Chest Pain Stated Complaint: CP Time Seen by Provider: 05/16/23 16:13 Source: patient Mode of arrival: ambulatory History of Present Illness: 50-year-old female who presents emergency room with complaints of chest pain. Stated began around 1530 this afternoon, 3 hours before arrival. She had nitro and aspirin in route. She was at rest when it began radiates into her back and shoulders. She still having some chest discomfort now. Symptoms accompanied by shortness of breath and impending sense of doom MD complaint: chest pain Pertinent past history: coronary artery disease Onset (ago): hour(s) Timing of current episode: episodic Prior episodes: Yes Onset: during rest Pain location: substernal Pain radiation: neck, left shoulder and right shoulder Severity: moderate Quality: aching and heaviness Relieving factors: nothing Exacerbating factors: nothing Associated symptoms: Reports dyspnea, nausea, palpitations and sense of impending doom; Deny abdominal pain, diaphoresis, fever(s), leg edema, syncope or vomiting Treatment prior to arrival: aspirin and nitroglycerin Review of Systems Const: Denies: fever(s), chills or diaphoresis Card: Reports: palpitations; Denies: chest pain or syncope Resp: Reports: dyspnea GI: Reports: nausea; Denies: abdominal pain or vomiting : Denies: dysuria, urinary frequency or urinary urgency Musc: Denies: neck pain or back pain Skin/Breast: Denies: rash PFSH ED PFSH: Medical History Atherosclerotic heart disease of [place] coronary artery with other forms of angina pectoris AV block, 2nd degree Chest pain Chronic migraine without aura, intractable, with status migrainosus Dyslipidemia Elevated blood pressure reading Emphysema of lung Quit in 2019 HTN (hypertension) Nausea and vomiting Recurrent vomiting Unstable angina Surgical History H/O colonoscopy History of appendectomy History of cholecystectomy History of colon resection History of hysterectomy History of surgery ULCERS AND PART OF STOMACH REMOVED Family History Mother CAD (coronary artery disease), Onset Age: 50 Cancer Lung disease Stroke Denies family history of Diabetes Clotting disorder Dementia Chronic kidney disease (CKD) Suicide Anesthesia complication Bleeding disorder Social History Smoking and tobacco/nicotine status: former use of tobacco/nicotine (3-4years ago) Alcohol intake: former Substance/Drug Use: never Physical Exam Const: COMMON NORMALS: no acute distress GENERAL APPEARANCE: cooperative and comfortable ORIENTATION/CONSCIOUSNESS: Yes awake, Yes oriented to person, Yes oriented to place and Yes oriented to time HENMT: COMMON NORMALS: normocephalic, atraumatic and hearing grossly normal bilaterally HEAD & SCALP: normocephalic and atraumatic Resp: COMMON NORMALS: normal respiratory effort, No retractions, No use of accessory muscles and clear to auscultation bilaterally AUSCULTATION: clear to auscultation bilaterally Cardio: COMMON NORMALS: regular rate, regular rhythm and No murmurs present (Cardio) RATE: regular rate RHYTHM: regular rhythm GI: COMMON NORMALS: Soft to palpation and No hepatosplenomegaly present AUSCULTATION: Yes normoactive bowel sounds PALPATION: Yes Soft to palpation, No Tenderness to palpation present (GI), No Guarding due to palpation present (GI) and Yes No hepatosplenomegaly present Extremity: COMMON NORMALS: normal to inspection, capillary refill normal, no clubbing, cyanosis or edema, no calf tenderness and no pedal edema Neuro: SENSORIUM/ORIENTATION: Yes oriented to person, Yes oriented to place and Yes oriented to time Skin: COMMON NORMALS: no rashes or lesions noted GENERAL SKIN EXAM: no rashes or lesions noted Course Vital Signs: Vital signs: Vital Signs Temperature 98.2 F 05/18/23 11:43 Pulse Rate 96 05/18/23 15:08 Respiratory Rate 20 H 05/18/23 15:08 Blood Pressure 147/84 05/18/23 15:08 Pulse Oximetry 99 05/18/23 15:08 Oxygen Delivery Me thod Room Air 05/18/23 11:43 MDM - Chest Pain Medical Decision Making Troponins normal however patient has clear ST depression laterally that resolves with nitroglycerin. Symptoms resolved with nitro patient did have a stress test in February 2000 20 to 1 months later had a Fuel System Maintenance Supervisor procedure. Mild diffuse coronary artery disease at that time no intervention was taken recommend medical management. Given EKG changes will admit to do serial enzymes and consult cardiology. I have discussed Dr. Sotelo and have also discussed Dr. Neff orders written. Medical Records I reviewed the patient's medical records. Lab Data I reviewed the patient's lab results. 05/17/23 05:15 05/17/23 05:15 Radiology Impressions Chest X-Ray 05/16/23 16:13 IMPRESSION: No acute findings. Laboratory Results WBC 4.76 10^3/uL (3.29-11.43) 05/16/23 16:31 RBC 4.42 10^6/uL (3.85-5.65) 05/16/23 16:31 Hgb 11.30 g/dL (11.27-16.99) 05/16/23 16: Hct 36.6 % (36-47) 05/16/23 16: MCV 82.8 fl (85-98) L 05/16/23 16: MCH 25.6 pg (27-33) L 05/16/23 16: MCHC 30.9 g/dL (30-55) 05/16/23 16:31 RDW 14.3 % (12.1-15.1) 05/16/23 16:31 Plt Count 213 10^3/cmm (157-399) 05/16/23 16: MPV 10.4 fL (7.4-10.4) 05/16/23 16:31 Neut % (Auto) 55.3 % 05/16/23 16:31 Lymph % (Auto) 31.3 % 05/16/23 16:31 [place] % (Auto) 8.0 % 05/16/23 16: Eos % (Auto) 5.0 % 05/16/23 16:31 Baso % (Auto) 0.2 % 05/16/23 16: Neut # (Auto) 2.63 10^3/uL (1.8-7.7) 05/16/23 16: Lymph # (Auto) 1.5 10^3/uL (0.8-4.8) 05/16/23 16:31 [place] # (Auto) 0.4 10^3/uL (0.2-0.9) 05/16/23 16:31 Eos # (Auto) 0.2 10^3/uL (0.0-0.8) 05/16/23 16:31 Baso # (Auto) 0.0 10^3/uL (0.0-0.1) 05/16/23 16:31 Nucleated RBC % (auto) 0 % 05/16/23 16:31 Nucleated RBCs # 0.0 /100WBC 05/16/23 16:31 D-Dimer 0.81 ug/mLFEU (0-0.59) H 05/16/23 16:31 Sodium 138 mmol/L (136-145) 05/16/23 16:31 Potassium 4.2 mmol/L (3.5-5.1) 05/16/23 16:31 Chloride 104 mmol/L (98-107) 05/16/23 16:31 Carbon Dioxide 22 mmol/L (22-29) 05/16/23 16:31 Anion Gap 16.2 (5-19) 05/16/23 16:31 BUN 19 mg/dL (6-20) 05/16/23 16:31 Creatinine 0.7 mg/dL (0.5-0.9) 05/16/23 16:31 GFR Calculation 85.9 mL/min (90-130) L 05/16/23 16:31 Glucose 100 mg/dL (65-115) 05/16/23 16:31 Calculated Osmolality 288 mOsm/kg (285-295) 05/16/23 16:31 Calcium 9.3 mg/dL (8.5-10.5) 05/16/23 16:31 Total Bilirubin 0.2 mg/dL (0.15-1.2) 05/16/23 16:31 AST 17 U/L (0-32) 05/16/23 16:31 ALT 8 U/L (0-33) 05/16/23 16:31 Alkaline Phosphatase 87 U/L (35-105) 05/16/23 16:31 Troponin T Baseline < 6 ng/L (0-10) 05/16/23 16:31 Total Protein 6.8 g/dL (6.6-8.7) 05/16/23 16:31 Albumin 4.2 g/dL (3.5-5.2) 05/16/23 16:31 Globulin 2.6 g/dL (1.3-4.6) 05/16/23 16:31 All radiology interpretation(s) finalized by discharge Discharge Plan Discharge Patient Disposition: Admitted As Inpatient Admit Provider: David Sotelo Clinical Impression: Chest pain, Abnormal EKG Condition: Stable Coding Level of Care Code ED Quantitative Analyst Developer for Chg Aiden
[2023-05-16 16:42] LABS: Basophils % 0.2 %; Eosinophils # 0.2 10^3/uL (0.0-0.8); Hematocrit 36.6 % (36-47); Lymphocytes # 1.5 10^3/uL (0.8-4.8); Lymphocytes % 31.3 %; Mean Corpuscular HGB Conc 30.9 g/dL (30-55); Mean Corpuscular Hemoglobin 25.6 pg (27-33); Mean Corpuscular Volume 82.8 fl (85-98); Mean Platelet Volume 10.4 fL (7.4-10.4); Monocytes # 0.4 10^3/uL (0.2-0.9); Neutrophils # 2.63 10^3/uL (1.8-7.7); Neutrophils % 55.3 %; Nucleated Red Blood Cells % 0 %; Platelet Count 213 10^3/cmm (157-399); Red Blood Count 4.42 10^6/uL (3.85-5.65); Red Cell Distribution Width 14.3 % (12.1-15.1); White Blood Count 4.76 10^3/uL (3.29-11.43)
--- NOTE | 2023-05-16 16:45 | ECG_ITS ---
[facility] Test Date: 2023-05-16 Pat Name: Radha Maguire Department: Room: Gender: Female Fishing Captain: : 1965 Requested By: Narendra Ramírez Order Number: [id number] Emily MD: Meño Neff M.D. Measurements Intervals [place] Rate: 96 P: 76 [place]: 118 QRS: 62 QRSD: 80 T: 59 QT: 325 QTc: 411 Interpretive Statements SINUS RHYTHM WITH SHORT [place] INTERVAL POSSIBLE RIGHT VENTRICULAR CONDUCTION DELAY [RSR (QR) IN V1/V2] Compared to ECG 04/21/2022 20:13:23 Short [place] interval now present Electronically Signed On 05-16-2023 21:27:37 CDT by Meño Neff M.D. [email or web address]
[2023-05-16] MEDS: clopidogrel 300 mg Tablet PO (17:14)
[2023-05-16 17:16] LABS: Troponin(5th) Baseline < 6 ng/L (0-10)
[2023-05-16 17:22] LABS: Alanine Aminotransferase 8 U/L (0-33); Albumin Level 4.2 g/dL (3.5-5.2); Alkaline Phosphatase 87 U/L (35-105); Aspartate Amino Transferase 17 U/L (0-32); Blood Urea Nitrogen 19 mg/dL (6-20); Calcium 9.3 mg/dL (8.5-10.5); Carbon Dioxide 22 mmol/L (22-29); Chloride 104 mmol/L (98-107); Globulin 2.6 g/dL (1.3-4.6); Glomerular Filtration Rate 85.9 mL/min (90-130); Glucose 100 mg/dL (65-115); Osmolality Calculated 288 mOsm/kg (285-295); Sodium 138 mmol/L (136-145); Total Bilirubin 0.2 mg/dL (0.15-1.2); Total Protein 6.8 g/dL (6.6-8.7)
[2023-05-16 17:23] LABS: Anion Gap 16.2 (5-19); Potassium 4.2 mmol/L (3.5-5.1)
[2023-05-16] MEDS: nitroglycerin drip 50 MG/250 ML PREMIX IV (17:26)
[2023-05-16] MEDS: ondansetron 2 mg/ML SDV 2 mL 4 MG IVP (17:32)
[2023-05-16] MEDS: morphine 4 mg/mL SDV 1 mL IVP (17:32)
--- NOTE | 2023-05-16 17:32 | P.HP_ITS ---
Providers/Chief Complaint Primary Care Provider: Braden Owen NP Chief Complaint: CP History of Present Illness Radha Maguire is a 58 year old female with history of cyclical vomiting, mild diffuse coronary artery disease previous coronary angiogram was in 2021 presenting today with chief complaint of chest pain. Please note on last admission in March last year patient had some high degree AV block changes on EKG which improved after emesis improved. In the ER she was started on nitroglycerin drip however her troponins are not high there is ST depression noted on the EKG, cardiology consulted, Dr. Neff is well aware of her who did coronary angiogram last year Patient is stating that for last couple of days she has been experiencing loose stools, she has not used any recent antibiotics, no one else is sick at home, she has not noticed any fever or blood in stool, she started experiencing palpitations and then it got worse and she started experiencing chest pain which she describing as pressure-like sensation radiating towards her neck Review of Systems Const: Denies: fever(s) Eyes: Denies: change in vision ENMT: Denies: throat pain Card: Reports: chest pain Resp: Reports: dyspnea GI: Denies: abdominal pain : Denies: flank pain Musc: Denies: neck pain Skin/Breast: Denies: skin tenderness Neuro: Reports: headache(s) Psych: Reports: anxiety Medications/Allergies Home Medications Medication Instructions Recorded Confirmed Last Taken Type tizanidine 2 mg tablet 2 mg PO Q6H PRN Spasms 10/12/19 05/17/23 Unknown History ibandronate 150 mg tablet 150 mg PO Q30D 09/21/20 05/17/23 05/16/23 History levothyroxine 25 mcg tablet 25 mcg PO QAM 09/21/20 05/17/23 03/01/23 History multivitamin 1 tab PO QAM 09/21/20 05/17/23 04/21/22 History Cam Boot to the left #1 ea 12/25/21 05/17/23 Unknown Rx albuterol sulfate 90 mcg/actuation 2 puff inhalation Q4H PRN 03/20/22 05/17/23 Unknown History aerosol inhaler shortness of breath or wheezing omeprazole magnesium 20 mg 20 mg PO QAM 03/20/22 05/17/23 03/01/23 History tablet,delayed release (Prilosec OTC) [id number]-[id number] 250 1 tab PO Q6H PRN Pain 04/21/22 05/17/23 Unknown History mg-250 mg-65 mg tablet (Excedrin Migraine) ondansetron 4 mg disintegrating 4 mg PO Q8H PRN nausea and 12/28/22 05/17/23 Unknown Rx tablet vomiting #15 tabs methocarbamol 750 mg tablet 750 mg PO Q8H #21 tabs 03/01/23 05/17/23 Unknown Rx meloxicam 7.5 mg tablet 7.5 mg PO DAILY 05/17/23 05/17/23 Unknown History Allergies Allergy/AdvReac Type Severity Reaction Status Date / Time diphenhydramine Allergy Unknown Verified 05/16/23 16:20 [From Benadryl] hydromorphone [From Dilaudid] Allergy ADR-Vomitin Verified 05/16/23 16:20 g ibuprofen [From Motrin] Allergy ALGY-Anaphy Verified 05/16/23 16:20 laxis Penicillins Allergy ALGY-Anaphy Verified 05/16/23 16:20 laxis tramadol Allergy Unknown Verified 05/16/23 16:20 PFSH Acute PFSH: Medical History Atherosclerotic heart disease of [place] coronary artery with other forms of angina pectoris AV block, 2nd degree Chest pain Chronic migraine without aura, intractable, with status migrainosus Dyslipidemia Elevated blood pressure reading Emphysema of lung Quit in 2019 HTN (hypertension) Nausea and vomiting Recurrent vomiting Unstable angina Surgical History H/O colonoscopy History of appendectomy History of cholecystectomy History of colon resection History of hysterectomy History of surgery ULCERS AND PART OF STOMACH REMOVED Family History Mother CAD (coronary artery disease), Onset Age: 50 Cancer Lung disease Stroke Denies family history of Diabetes Clotting disorder Dementia Chronic kidney disease (CKD) Suicide Anesthesia complication Bleeding disorder Social History Smoking and tobacco/nicotine status: former use of tobacco/nicotine (3-4years ago) Alcohol intake: former Substance/Drug Use: never Vitals/I&O/Wt Last Vital Signs Temp 98.1 F 05/16/23 16:15 Pulse 98 05/16/23 16:15 Resp 18 05/16/23 16:15 BP 149/90 05/16/23 16:15 Pulse Ox 98 05/16/23 16:15 O2 Del Method Room Air 05/16/23 16:15 Weight last 48 hrs Weight 45.359 kg Physical Exam Narrative: Pleasant and cooperative Currently chest pain-free GCS 15 Hemodynamically stable Currently on room air No acute distress In good spirits S1, S2 Data 05/17/23 05:15 05/17/23 05:15 A&P Assessment and plan (1) Palpitations: (2) Chest pain: Qualifiers: Chest pain type: other chest pain Qualified Code(s): R07.89 - Other chest pain Plan Unstable angina I will keep her on therapeutic Lovenox We will discontinue nitroglycerin drip I do believe there is GI component as well Rule out C. difficile Her symptoms started after her diarrhea Clinically she looks dehydrated Continue IV fluids overnight Patient is complaining of headache due to nitroglycerin drip He consulted cardiology Cardiac diet Patient is stating that she is DNR/DNI Attestations Medical Necessity Statement*: anticipating discharge within 48 hours anticipating discharge within 48 hours Diagnoses Palpitations R00.2 Chest pain R07.89 Chest pain type: other chest pain
[2023-05-16 17:51] LABS: D Dimer 0.81 ug/mLFEU (0-0.59)
[2023-05-16 18:00] VITALS: BP 114/62; PULSE 75; RESP 16; O2SAT 98
--- NOTE | 2023-05-16 18:13 | ECG_ITS ---
[facility] Test Date: 2023-05-16 Pat Name: Radha Maguire Department: Room: Gender: Female [employer] Maker: : 1965 Requested By: Narendra Ramírez Order Number: [id number] Emily MD: Meño Neff M.D. Measurements Intervals [place] Rate: 99 P: 68 MO: 122 QRS: 59 QRSD: 84 T: 64 QT: 315 QTc: 406 Interpretive Statements SINUS RHYTHM POSSIBLE RIGHT VENTRICULAR CONDUCTION DELAY [RSR (QR) IN V1/V2] Compared to ECG 04/21/2022 20:13:23 No significant changes Electronically Signed On 05-16-2023 21:29:35 CDT by Meño Neff M.D. [id number]
[2023-05-16 19:10] VITALS: BP 96/62; PULSE 96; RESP 18; O2SAT 96
[2023-05-16 19:10] LABS: Troponin 5 2HR Delta 0.00001 ABS# (0-10)
[2023-05-16 19:16] VITALS: BP 108/58; PULSE 88; O2SAT 97
--- NOTE | 2023-05-16 19:30 | P.CONIM_ITS ---
Providers/Reason For Consult Consulting Physician/Specialty*: LUDMILA Neff MD/cardiology Reason for Consult*: Patient with history of atherosclerotic heart disease/presenting with chest pain Requesting Physician: Dr. Sotelo Attending Physician: David Sotelo MD Primary Care Provider: Braden Owen NP History of Present Illness History of Present Illness Radha Maguire is a 58 year old female with a history of high blood pressure, dyslipidemia, coronary artery disease, presented to the emergency room today with complaints of palpitations and chest pain. She had some nonspecific EKG changes. She is admitted to the hospital for further evaluation management. This patient apparently has been in her baseline state of health up until Thursday when she started having diarrhea. She had very frequent diarrhea for 2 days. She also had some palpitations. She started having more palpitations yesterday and today. She also started having more chest pain which is more or less constant with some waxing and waning. The pain was pressure-like in nature and does not radiate to the back. It went up to 7/10 in intensity. She had some associated dizziness no syncopal episodes. Denies any fever or chills. No cough. Because of the worsening symptoms, she was brought to the hospital. She had the cardiac realizations in March of last year. She was found to have mild diffuse coronary artery disease. According the patient, her chest symptoms are similar to what she had prior to the angiogram. Patient had some prolonged pauses during her last hospital admission. At that time she also had nausea and vomiting. Apparently these bradycardic episodes subsided with the resolution of nausea and vomiting. Subsequent event monitor as an outpatient did not reveal any significant bradycardia arrhythmia or pauses atient has a history of smoking abuse, used to smoke a pack a day for 30 years or so which she quit at the age of 50.? She has no history of coronary alcohol abuse or any substance abuse.? Her mother had a myocardial infarction in her 50s.? She had open heart surgery.? Father had a?? Broken heart syndrome and CVA.? He of CVA?.? Details are not available. Patient has occasional elevated blood pressure but noted being treated for hypertension.? The cholesterol status is not known.? Recently she was started on omega-3. Review of Systems 2 Narrative: CONSTITUTIONAL: No fever or chills. EYES: No blurring of vision or other visual disturbances lately. ENT: No hoarseness of voice, auditory disturbances or sore throat. CARDIOVASCULAR: As mentioned above. RESPIRATORY: No significant cough. GASTROINTESTINAL: No hematemesis or melena. GENITOURINARY: No dysuria or hematuria. INTEGUMENTARY: No skin rashes or history of skin cancer. NEURO: No transient ischemic attacks or amaurosis. PSYCHIATRIC: No history of psychosis or major depression. HEMATOLOGIC: No bleeding disorders or significant anemia. ENDOCRINE: No history of polyuria or polydipsia. MUSCULOSKELETAL: No recent joint pain or swelling. ALLERGY/IMMUNOLOGY: As mentioned above. Medications/Allergies Home Medications Medication Instructions Recorded Confirmed Last Taken Type tizanidine 2 mg tablet 2 mg PO Q6H PRN Spasms 10/12/19 05/17/23 Unknown History ibandronate 150 mg tablet 150 mg PO Q30D 09/21/20 05/17/23 05/16/23 History levothyroxine 25 mcg tablet 25 mcg PO QAM 09/21/20 05/17/23 03/01/23 History multivitamin 1 tab PO QAM 09/21/20 05/17/23 04/21/22 History Cam Boot to the left #1 ea 12/25/21 05/17/23 Unknown Rx albuterol sulfate 90 mcg/actuation 2 puff inhalation Q4H PRN 03/20/22 05/17/23 Unknown History aerosol inhaler shortness of breath or wheezing omeprazole magnesium 20 mg 20 mg PO QAM 03/20/22 05/17/23 03/01/23 History tablet,delayed release (Prilosec OTC) [id number]-iyonprwbvpjrg-pajzyclv 250 1 tab PO Q6H PRN Pain 04/21/22 05/17/23 Unknown History mg-250 mg-65 mg tablet (Excedrin Migraine) ondansetron 4 mg disintegrating 4 mg PO Q8H PRN nausea and 12/28/22 05/17/23 Unknown Rx tablet vomiting #15 tabs methocarbamol 750 mg tablet 750 mg PO Q8H #21 tabs 03/01/23 05/17/23 Unknown Rx meloxicam 7.5 mg tablet 7.5 mg PO DAILY 05/17/23 05/17/23 Unknown History Allergies Allergy/AdvReac Type Severity Reaction Status Date / Time diphenhydramine Allergy Unknown Verified 05/16/23 16:20 [From Benadryl] hydromorphone [From Dilaudid] Allergy ADR-Vomitin Verified 05/16/23 16:20 g ibuprofen [From Motrin] Allergy ALGY-Anaphy Verified 05/16/23 16:20 laxis Penicillins Allergy ALGY-Anaphy Verified 05/16/23 16:20 laxis tramadol Allergy Unknown Verified 05/16/23 16:20 Current Medications Generic Name Dose Route Start Last Admin Trade Name Freq PRN Reason Stop Dose Admin Nitroglycerin/Dextrose 50 mg in 250 mls @ 0 mls/hr 05/16/23 16:30 05/16/23 18:59 Nitroglycerin Drip IV 0 mcg/min .Q0M ELISABETH 0 mls/hr Titration Protocol Per Protocol PFSH Acute PFSH: Medical History Atherosclerotic heart disease of [place] coronary artery with other forms of angina pectoris AV block, 2nd degree Chest pain Chronic migraine without aura, intractable, with status migrainosus Dyslipidemia Elevated blood pressure reading Emphysema of lung Quit in 2019 HTN (hypertension) Nausea and vomiting Recurrent vomiting Unstable angina Surgical History H/O colonoscopy History of appendectomy History of cholecystectomy History of colon resection History of hysterectomy History of surgery ULCERS AND PART OF STOMACH REMOVED Family History Mother CAD (coronary artery disease), Onset Age: 50 Cancer Lung disease Stroke Denies family history of Diabetes Clotting disorder Dementia Chronic kidney disease (CKD) Suicide Anesthesia complication Bleeding disorder Social History Smoking and tobacco/nicotine status: former use of tobacco/nicotine (3-4years ago) Alcohol intake: former Substance/Drug Use: never Vitals/I&O/Wt Last Vital Signs Temp 98.1 F 05/16/23 16:15 Pulse 88 05/16/23 19:16 Resp 18 05/16/23 19:10 BP 108/58 05/16/23 19:16 Pulse Ox 97 05/16/23 19:16 O2 Del Method Room Air 05/16/23 19:16 05/16/23 05/16/23 05/16/23 06:59 14:59 22:59 Intake Total 4.65 / 4.65 Balance 4.65 / 4.65 Weight last 48 hrs Weight 100 lb Physical Exam Narrative: GENERAL: The patient is alert and oriented times three. Not in any acute distress. Appears to be somewhat nervous HEENT: No significant pallor, icterus or lymphadenopathy.Oral cavity: There are no mucous membrane lesions. NECK: Trachea appears to be central. No masses noted. No JVD or thyromegaly appreciated. RESPIRATORY: Chest is symmetrical. No intercostals muscle retraction or any accessory muscle activation. There is no chest wall tenderness. Breath sounds are heard bilaterally. No rales or rhonchi heard. No evidence of any consolidation. BREASTS: Deferred. HEART: The heart sounds are normal. No S3 or S4. No significant murmurs. No pericardial rub ABDOMEN: No vessel pulsations or distention. No tenderness. No organomegaly appreciated. Bowel sounds are normally heard. : Deferred. RECTAL: Deferred. LYMPHATIC: No lymphadenopathy noted in the neck. EXTREMITIES: No edema or cyanosis. No clubbing. MUSCULOSKELETAL: No acute joint deformities or swelling SKIN: There are no significant rashes or ecchymosis NEUROPSYCHIATRIC: The patient is alert and oriented x3. Appears to be in a good mood. No tremors or rigidity noted. Data 05/17/23 05:15 05/17/23 05:15 Other Labs: Laboratory Last Values WBC 4.76 10^3/uL (3.29-11.43) 05/16/23 16:31 RBC 4.42 10^6/uL (3.85-5.65) 05/16/23 16:31 Hgb 11.30 g/dL (11.27-16.99) 05/16/23 16:31 Hct 36.6 % (36-47) 05/16/23 16:31 MCV 82.8 fl (85-98) L 05/16/23 16:31 MCH 25.6 pg (27-33) L 05/16/23 16:31 MCHC 30.9 g/dL (30-55) 05/16/23 16:31 RDW 14.3 % (12.1-15.1) 05/16/23 16:31 Plt Count 213 10^3/cmm (157-399) 05/16/23 16:31 MPV 10.4 fL (7.4-10.4) 05/16/23 16:31 Neut % (Auto) 55.3 % 05/16/23 16:31 Lymph % (Auto) 31.3 % 05/16/23 16:31 [place] % (Auto) 8.0 % 05/16/23 16: Eos % (Auto) 5.0 % 05/16/23 16:31 Baso % (Auto) 0.2 % 05/16/23 16: Neut # (Auto) 2.63 10^3/uL (1.8-7.7) 05/16/23 16: Lymph # (Auto) 1.5 10^3/uL (0.8-4.8) 05/16/23 16:31 [place] # (Auto) 0.4 10^3/uL (0.2-0.9) 05/16/23 16: Eos # (Auto) 0.2 10^3/uL (0.0-0.8) 05/16/23 16:31 Baso # (Auto) 0.0 10^3/uL (0.0-0.1) 05/16/23 16: Nucleated RBC % (auto) 0 % 05/16/23 16: Nucleated RBCs # 0.0 /100WBC 05/16/23 16:31 D-Dimer 0.81 ug/mLFEU (0-0.59) H 05/16/23 16:31 Sodium 138 mmol/L (136-145) 05/16/23 16:31 Potassium 4.2 mmol/L (3.5-5.1) 05/16/23 16:31 Chloride 104 mmol/L (98-107) 05/16/23 16:31 Carbon Dioxide 22 mmol/L (22-29) 05/16/23 16:31 Anion Gap 16.2 (5-19) 05/16/23 16:31 BUN 19 mg/dL (6-20) 05/16/23 16:31 Creatinine 0.7 mg/dL (0.5-0.9) 05/16/23 16:31 GFR Calculation 85.9 mL/min (90-130) L 05/16/23 16:31 Glucose 100 mg/dL (65-115) 05/16/23 16:31 Calculated Osmolality 288 mOsm/kg (285-295) 05/16/23 16:31 Calcium 9.3 mg/dL (8.5-10.5) 05/16/23 16:31 Total Bilirubin 0.2 mg/dL (0.15-1.2) 05/16/23 16:31 AST 17 U/L (0-32) 05/16/23 16:31 ALT 8 U/L (0-33) 05/16/23 16:31 Alkaline Phosphatase 87 U/L (35-105) 05/16/23 16:31 Troponin T Baseline < 6 ng/L (0-10) 05/16/23 16:31 Troponin T 120 Minute 6.0 ng/L (0-10) 05/16/23 18:35 Delta Troponin T 0.27117 ABS# (0-10) 05/16/23 18:35 Total Protein 6.8 g/dL (6.6-8.7) 05/16/23 16:31 Albumin 4.2 g/dL (3.5-5.2) 05/16/23 16:31 Globulin 2.6 g/dL (1.3-4.6) 05/16/23 16:31 Other data: Event monitor report from 05/03/2020 1.? The baseline rhythm was found to be normal sinus with an overall average heart rate of 91 bpm.? Rare ventricular and supraventricular ectopics. 2.? No significant tachy or marvin arrhythmias.? No significant pauses.? No symptoms are mentioned with any of the recordings 3.? No similar previous similar studies are available for comparison Cardiac catheterization on 03/21/2022 Diagnostic Findings ? * The left main is a medium caliber vessel with no significant stenotic lesions. ? * The left anterior descending artery is a medium caliber vessel which appears to wrap around the LV apex minimally.? The mid LAD was found to have around 30 to 40% diffuse irregular narrowing.? The distal artery also was found to have some intimal narrowing.? No significant stenotic lesions were noted. The first 2 diagonal branches found to have around 40 to 50% tubular narrowing, involving the ostium.. ? * The left circumflex artery is a medium caliber vessel which appears to have around 20 to 30% narrowing proximally.? Then the artery appears to bifurcate.? No other significant lesions were noted. ? * The right coronary artery is a medium caliber dominant vessel which was found to have 20 to 30% irregular narrowing in the proximal segment.? Intimal irregularities are noted in the PDA and the PLV branches.? No significant stenotic lesions were noted. Echocardiogram on 01/14/2022 ?Normal left ventricular size and systolic function, EF 55 %. No ?regional wall motion abnormalities. ? Segmental wall motion analysis is difficult because of the poor ?ultrasonic window. ?Minimally thickened mitral valve. trace to mild mitral valve ?regurgitation. ?Normal cardiac chamber sizes. ?there is no pericardial effusion. ?There are no intracardiac masses. ?No similar previous studies are available for comparison A&P Assessment and plan (1) Atherosclerotic heart disease of [place] coronary artery with other forms of angina pectoris: Patient apparently had only mild coronary artery disease by angiogram in March of last year. Possibility of the coronary lesions getting worse cannot be completely excluded but my clinical suspicion may be low. Her EKG changes are nonspecific. No evidence of any myocardial injury so far. Possibility of some form of cardiac arrhythmia causing the symptom is a consideration. She need to be closely monitored on the telemetry. (2) Dyslipidemia: May continue on the current medications. (3) Bradycardia: Patient has not had any recurrence of bradycardia since her last hospital admission. Most likely it was vasovagal in nature. She need to be closely monitored on telemetry. (4) Benign essential hypertension with target blood pressure below 140/90: Currently normotensive. May continue on the current medications. Plan Depending on the patient clinical progress, further recommendations will be made. She may be kept on the current medications for the time being. Thank you for the opportunity to evaluate this patient and make these recommendations Coding Level of Care Code 35745 Diagnoses Atherosclerotic heart disease of [place] coronary artery with other forms of angina pectoris I25.118 Dyslipidemia E78.5 Bradycardia R00.1 Benign essential hypertension with target blood pressure below 140/90 I10
[2023-05-16] MEDS: enoxaparin 40 mg/0.4 mL Syringe SUBCUT (20:36)
[2023-05-16] MEDS: lidocaine 2% viscous 15 ML, aluminum-mag hydrox-simethicon 30 ML, sucralfate oral liq 1 GM PO (20:37)
[2023-05-16] MEDS: pantoprazole 40 mg SDV IVP (20:37)
[2023-05-16] MEDS: sodium chloride 0.9% 1,000 ML 75 ML IV (20:51)
[2023-05-16] MEDS: morphine 4 mg/mL SDV 1 mL 2 MG IVP (21:11)
[2023-05-16 21:53] VITALS: BP 115/78; PULSE 108; RESP 24; TEMP 36.7; O2SAT 93
[2023-05-16 22:00] VITALS: PULSE 101
[2023-05-16 23:00] LABS: Troponin 5 6HR Delta 0.00001 ng/L (0-12)
[2023-05-17] VITALS (72 sets, daily range): BP systolic 96–150; BP diastolic 57–89; PULSE 62–104; RESP 15–30; TEMP 36.6–37.2; O2SAT 91–98
[2023-05-17] MEDS: acetaminophen 500 mg Tablet PO ×2 (00:44→04:55)
[2023-05-17] MEDS: morphine 4 mg/mL SDV 1 mL 2 MG IVP ×4 (01:13→14:52)
[2023-05-17 01:17] LABS: Estmated Average Glucose 100; Hemoglobin A1C 5.1 % (4.0-6.0)
[2023-05-17 02:34] LABS: Vitamin B12 228 pg/mL (232-1245)
[2023-05-17] MEDS: levothyroxine 25 mcg Tablet PO (05:41)
[2023-05-17] MEDS: pantoprazole DR 40 mg Tablet PO (05:41)
[2023-05-17 05:42] LABS: Basophils % 0.2 %; Eosinophils # 0.3 10^3/uL (0.0-0.8); Eosinophils % 6.2 %; Hematocrit 33.7 % (36-47); Lymphocytes % 43.5 %; Mean Corpuscular HGB Conc 30.6 g/dL (30-55); Mean Corpuscular Hemoglobin 25.1 pg (27-33); Mean Corpuscular Volume 82.2 fl (85-98); Mean Platelet Volume 10.2 fL (7.4-10.4); Monocytes # 0.4 10^3/uL (0.2-0.9); Monocytes % 9.5 %; Neutrophils # 1.82 10^3/uL (1.8-7.7); Neutrophils % 40.4 %; Nucleated Red Blood Cells % 0 %; Platelet Count 230 10^3/cmm (157-399); Red Cell Distribution Width 14.4 % (12.1-15.1); White Blood Count 4.51 10^3/uL (3.29-11.43)
--- NOTE | 2023-05-17 06:00 | USCV_ITS ---
Radha Maguire Age: 58 Gender: F : 1965 Exam Date: 05/17/2023 06:56 Ordering Phys: David Sotelo MD Technologist: Henrik Chang [place] [facility] [place] Indication: UA BP: 101 / 57 HR: 79 Rhythm: Sinus Technical Quality: Adequate MEASUREMENTS (Male / Female) Normal Values 2D ECHO LVOT Diameter 2.0 cm LV Ejection Fraction MOD 2C 58.8 % LV Ejection Fraction 2C AL 58.3 % LA Diameter 3.0 cm LA Width 2.6 cm LA Height 3.1 cm RA Width 2.2 cm RA Height 3.6 cm Aorta at Sinotubular Diameter 2.2 cm IVC Diameter 1.2 cm M-MODE Aortic Annulus Diameter 2.0 cm LA Ao Ratio MM 1.5 MV E Point Septal Separation 0.4 cm DOPPLER AV Peak Velocity 122.0 cm/s LVOT Peak Velocity 115.0 cm/s AV Area Cont Eq vti 3.3 cm squared AV Area Cont Eq pk 3.0 cm squared MV Peak Velocity 123.0 cm/s MV Area PHT 13.8 cm squared Mitral E to A Ratio 1.2 MV E' Velocity 44.0 cm/s Mitral E to MV E' Ratio 6.2 Mitral E to LV E' Lateral Ratio 5.9 Mitral E to LV E' Septal Ratio 6.5 TR Peak Velocity 251.4 cm/s TR Peak Gradient 25.3 mmHg TR Mean Velocity 184.5 cm/s TR Mean Gradient 14.9 mmHg TR Velocity Time Integral 66.9 cm Right Atrial Pressure 3.0 mmHg Pulmonary Artery Systolic Pressu 28.3 mmHg PV Peak Velocity 82.0 cm/s RV Acceleration Time 0.1 s RV Ejection Time 0.3 s RV AcT/ET 0.6 FINDINGS Left Ventricle Normal left ventricular size and systolic function, EF 62 %. No regional wall motion abnormalities. Right Ventricle The right ventricle is normal in size and function. Right Atrium The right atrium is normal in size. Left Atrium The left atrium is normal in size. Mitral Valve No gross abnormalities noted Aortic Valve No gross abnormalities noted Tricuspid Valve Mild tricuspid valve regurgitation. Estimated pulmonary artery peak systolic pressure 28 mm of Hg. Pulmonic Valve Pulmonic valve not well visualized. Pericardium Normal pericardium without effusion. Aorta Normal ascending aorta dimension. IVC Inferior vena cava not visualized. CONCLUSIONS Normal left ventricular size and systolic function, EF 62 %. No regional wall motion abnormalities. Mild tricuspid valve regurgitation. Estimated pulmonary artery peak systolic pressure 28 mm of Hg. Normal cardiac chamber sizes There is no significant pericardial effusion. Compared to the study from 01/14/2022, there may not be a significant change Dr Meño Neff MD FAC (Electronically Signed) Final Date: 17 May 2023 18:45 S
[2023-05-17 06:01] LABS: Anion Gap 9.8 (5-19); Blood Urea Nitrogen 11 mg/dL (6-20); Calcium 8.4 mg/dL (8.5-10.5); Carbon Dioxide 26 mmol/L (22-29); Chloride 101 mmol/L (98-107); Glomerular Filtration Rate 102.7 mL/min (90-130); Glucose 96 mg/dL (65-115); Magnesium 2.2 mg/dL (1.7-2.3); Osmolality Calculated 275 mOsm/kg (285-295); Potassium 3.8 mmol/L (3.5-5.1); Sodium 133 mmol/L (136-145)
[2023-05-17] MEDS: cyanocobalamin 1,000 mcg/mL SDV 1000 MCG IM (08:02)
[2023-05-17] MEDS: enoxaparin 40 mg/0.4 mL Syringe SUBCUT ×2 (08:02→20:29)
[2023-05-17] MEDS: ondansetron 2 mg/ML SDV 2 mL 4 MG IVP ×2 (08:02→14:59)
[2023-05-17] MEDS: metoprolol tartrate 25 mg Tablet PO (08:54)
[2023-05-17] MEDS: pantoprazole 40 mg SDV IVP (08:54)
[2023-05-17] MEDS: atorvastatin 40 mg Tablet PO (08:54)
--- NOTE | 2023-05-17 14:49 | P.PN_ITS ---
Subjective Subjective: Patient is complaining of migraine headache. She still may have some vague chest pains. The overall status seems to be improving. No unusual shortness of breath. No orthopnea PND Medications: Medication Review Details: Current Medications Acetaminophen (Acetaminophen 500 Mg Tablet) 500 mg PO Q4H PRN PRN Reason: fever Last Admin: 05/17/23 04:55 Dose: 500 mg Albuterol/Ipratropium (Ipratropium-Albuterol 3 Ml Neb) 3 ml INHALATION Q6H PRN PRN Reason: SHORTNESS OF BREATH Atorvastatin Calcium (Atorvastatin 40 Mg Tablet) 40 mg PO DAILY [facility] Last Admin: 05/17/23 08:54 Dose: 40 mg Enoxaparin Sodium (Enoxaparin 40 Mg/0.4 Ml Syringe) 40 mg SUBCUT Q12H [facility] Last Admin: 05/17/23 08:02 Dose: 40 mg Nitroglycerin/Dextrose (Nitroglycerin Drip) 50 mg in 250 mls @ 0 mls/hr IV .Q0M [facility]; Protocol Last Titration: 05/16/23 18:59 Dose: 0 mcg/min, 0 mls/hr Sodium Chloride (Sodium Chloride 0.9%) 1,000 mls @ 75 mls/hr IV .[id number] [facility] Last Admin: 05/16/23 20:51 Dose: 75 mls/hr Levothyroxine Sodium (Levothyroxine 25 Mcg Tablet) 25 mcg PO QAM [facility] Last Admin: 05/17/23 05:41 Dose: 25 mcg Lisinopril (Lisinopril 5 Mg Tablet) 5 mg PO DAILY PRN PRN Reason: Systolic blood pressure above 140 diastolic above 90 Metoprolol Tartrate (Metoprolol Tartrate 25 Mg Tablet) 25 mg PO DAILY [facility] Last Admin: 05/17/23 08:54 Dose: 25 mg Morphine Sulfate (Morphine 4 Mg/Ml Sdv 1 Ml) 2 mg IVP Q4H PRN PRN Reason: SEVERE PAIN Last Admin: 05/17/23 10:10 Dose: 2 mg Morphine Sulfate (Morphine Ir 15 Mg Tablet) 15 mg PO Q6H PRN PRN Reason: MODERATE PAIN Ondansetron HCl (Ondansetron 2 Mg/Ml Sdv 2 Ml) 4 mg IVP Q6H PRN PRN Reason: NAUSEA AND VOMITING Last Admin: 05/17/23 08:02 Dose: 4 mg Ondansetron HCl (Ondansetron 2 Mg/Ml Sdv 2 Ml) 4 mg IVP Q6H PRN PRN Reason: NAUSEA AND VOMITING Pantoprazole Sodium (Pantoprazole Dr 40 Mg Tablet) 40 mg PO QAM [facility] Last Admin: 05/17/23 05:41 Dose: 40 mg Pantoprazole Sodium (Pantoprazole 40 Mg Sdv) 40 mg IVP BID [facility] Last Admin: 05/17/23 08:54 Dose: 40 mg Vitals/I&O/Wt Last Vital Signs Temp 98.9 F 05/17/23 13:20 Pulse 64 05/17/23 13:20 Resp 19 H 05/17/23 13:20 BP 96/61 05/17/23 13:20 Pulse Ox 94 05/17/23 13:20 O2 Del Method Room Air 05/17/23 04:00 05/16/23 05/17/23 05/17/23 22:59 06:59 14:59 Intake Total 4.65 / 4.65 222 / 226.65 Balance 4.65 / 4.65 222 / 226.65 Weight last 48 hrs Weight 100 lb Physical Exam Narrative: GENERAL: The patient is alert and oriented times three. Not in any acute distress. Appears to be somewhat nervous HEENT: No significant pallor, icterus or lymphadenopathy.Oral cavity: There are no mucous membrane lesions. NECK: Trachea appears to be central. No masses noted. No JVD or thyromegaly appreciated. RESPIRATORY: Chest is symmetrical. No intercostals muscle retraction or any acc essory muscle activation. There is no chest wall tenderness. Breath sounds are heard bilaterally. No rales or rhonchi heard. No evidence of any consolidation. BREASTS: Deferred. HEART: The heart sounds are normal. No S3 or S4. No significant murmurs. No pericardial rub ABDOMEN: No vessel pulsations or distention. No tenderness. No organomegaly appreciated. Bowel sounds are normally heard. : Deferred. RECTAL: Deferred. LYMPHATIC: No lymphadenopathy noted in the neck. EXTREMITIES: No edema or cyanosis. No clubbing. MUSCULOSKELETAL: No acute joint deformities or swelling SKIN: There are no significant rashes or ecchymosis NEUROPSYCHIATRIC: The patient is alert and oriented x3. Appears to be in a good mood. No tremors or rigidity noted. Data 05/17/23 05:15 05/17/23 05:15 Other Labs: Laboratory Last Values WBC 4.51 10^3/uL (3.29-11.43) 05/17/23 05:15 RBC 4.10 10^6/uL (3.85-5.65) 05/17/23 05:15 Hgb 10.30 g/dL (11.27-16.99) L 05/17/23 05:15 Hct 33.7 % (36-47) L 05/17/23 05:15 MCV 82.2 fl (85-98) L 05/17/23 05:15 MCH 25.1 pg (27-33) L 05/17/23 05:15 MCHC 30.6 g/dL (30-55) 05/17/23 05:15 RDW 14.4 % (12.1-15.1) 05/17/23 05:15 Plt Count 230 10^3/cmm (157-399) 05/17/23 05:15 MPV 10.2 fL (7.4-10.4) 05/17/23 05:15 Neut % (Auto) 40.4 % 05/17/23 05:15 Lymph % (Auto) 43.5 % 05/17/23 05:15 [place] % (Auto) 9.5 % 05/17/23 05:15 Eos % (Auto) 6.2 % 05/17/23 05:15 Baso % (Auto) 0.2 % 05/17/23 05:15 Neut # (Auto) 1.82 10^3/uL (1.8-7.7) 05/17/23 05:15 Lymph # (Auto) 2.0 10^3/uL (0.8-4.8) 05/17/23 05:15 [place] # (Auto) 0.4 10^3/uL (0.2-0.9) 05/17/23 05:15 Eos # (Auto) 0.3 10^3/uL (0.0-0.8) 05/17/23 05:15 Baso # (Auto) 0.0 10^3/uL (0.0-0.1) 05/17/23 05:15 Nucleated RBC % (auto) 0 % 05/17/23 05:15 Nucleated RBCs # 0.0 /100WBC 05/17/23 05:15 D-Dimer 0.81 ug/mLFEU (0-0.59) H 05/16/23 16:31 Sodium 133 mmol/L (136-145) L 05/17/23 05:15 Potassium 3.8 mmol/L (3.5-5.1) 05/17/23 05:15 Chloride 101 mmol/L (98-107) 05/17/23 05:15 Carbon Dioxide 26 mmol/L (22-29) 05/17/23 05:15 Anion Gap 9.8 (5-19) 05/17/23 05:15 BUN 11 mg/dL (6-20) 05/17/23 05:15 Creatinine 0.6 mg/dL (0.5-0.9) 05/17/23 05:15 GFR Calculation 102.7 mL/min (90-130) 05/17/23 05:15 Glucose 96 mg/dL (65-115) 05/17/23 05:15 Estimat Average Glucose 100 05/17/23 00:55 Hemoglobin A1c 5.1 % (4.0-6.0) 05/17/23 00:55 Calculated Osmolality 275 mOsm/kg (285-295) L 05/17/23 05:15 Calcium 8.4 mg/dL (8.5-10.5) L 05/17/23 05:15 Phosphorus 3.0 mg/dL (2.5-4.5) 05/17/23 05:15 Magnesium 2.2 mg/dL (1.7-2.3) 05/17/23 05:15 Total Bilirubin 0.2 mg/dL (0.15-1.2) 05/16/23 16:31 AST 17 U/L (0-32) 05/16/23 16:31 ALT 8 U/L (0-33) 05/16/23 16:31 Alkaline Phosphatase 87 U/L (35-105) 05/16/23 16:31 Troponin T Baseline < 6 ng/L (0-10) 05/16/23 16:31 Troponin T 120 Minute 6.0 ng/L (0-10) 05/16/23 18:35 Delta Troponin T 0.58996 ABS# (0-10) 05/16/23 18:35 Troponin T Hi Sens 6Hr 6.0 ng/L (0-10) 05/16/23 22:31 Troponin T Hi Sens 6Hr Delta 0.69046 ng/L (0-12) 05/16/23 22:31 Total Protein 6.8 g/dL (6.6-8.7) 05/16/23 16:31 Albumin 4.2 g/dL (3.5-5.2) 05/16/23 16:31 Globulin 2.6 g/dL (1.3-4.6) 05/16/23 16:31 Vitamin B12 228 pg/mL (232-1245) L 05/17/23 00:55 A&P Assessment and plan (1) Atherosclerotic heart disease of [place] coronary artery with other forms of angina pectoris: Patient apparently had only mild coronary artery disease by angiogram in March of last year. Possibility of the coronary lesions getting worse cannot be completely excluded but my clinical suspicion may be low. Her EKG changes are nonspecific. No evidence of any myocardial injury so far. Possibility of some form of cardiac arrhythmia causing the symptom is a consideration. She need to be closely monitored on the telemetry. So far no significant arrhythmias are noted on the monitor. For further evaluation I may go ahead and do a Myocardial perfusion imaging tomorrow and decide on further management. (2) Dyslipidemia: May continue on the current medications. (3) Bradycardia: Patient has not had any recurrence of bradycardia since her last hospital admission. Most likely it was vasovagal in nature. She need to be closely monitored on telemetry. (4) Benign essential hypertension with target blood pressure below 140/90: Currently normotensive. May continue on the current medications. Plan Based on the results of the above tests and the patient's clinical progress, further recommendations will be made. Thank you for the opportunity to evaluate this patient and make these recommendations Attestations Medical Necessity Statement*: Patient requires continued hospital stay for close monitoring and further management Coding Level of Care Code 14332 Diagnoses Atherosclerotic heart disease of [place] coronary artery with other forms of angina pectoris I25.118 Dyslipidemia E78.5 Bradycardia R00.1 Benign essential hypertension with target blood pressure below 140/90 I10
[2023-05-17] MEDS: sodium chloride 0.9% 1,000 ML 75 ML IV (15:22)
--- NOTE | 2023-05-17 15:24 | PC.NURSE ---
Patient had pantoprazole IVP and PO, both active on her OCT. Provider notified and he discontinued the IVP.
--- NOTE | 2023-05-17 16:37 | PC.NURSE ---
Provider is notified that patient has had a migraine headache for the last few hours. She has been getting morphine for the pain, which is what she said has been working, but she also gets nauseated with them. She has vomited x 2 and the nurse has given her zofran x 2. Patient is requesting a scopolamine patch. Provider okay this order.
[2023-05-17] MEDS: scopolamine 1.5 Patch 1 PATCH TRANSDERMA (16:51)
--- NOTE | 2023-05-17 18:08 | PM.PN ---
Subjective Subjective: Patient complaining of chest pain which is reproducible and gets worse with deep breathing Complaining of nausea and headache Vitals/I&O/Wt Last Vital Signs Temp 98.1 F 05/16/23 16:15 Pulse 75 05/16/23 18:00 Resp 16 05/16/23 18:00 BP 114/62 05/16/23 18:00 Pulse Ox 98 05/16/23 18:00 O2 Del Method Room Air 05/16/23 16:15 Weight last 48 hrs Weight 45.359 kg Physical Exam Narrative: Pleasant and cooperative S1, S2 GCS 15 Hemodynamically stable Nonfocal neuro exam No respiratory distress Doing well on room air Data 05/17/23 05:15 05/17/23 05:15 A&P Assessment and plan (1) Palpitations: (2) Chest pain: Qualifiers: Chest pain type: other chest pain Qualified Code(s): R07.89 - Other chest pain Plan Unstable angina Patient is on therapeutic Lovenox Continue metoprolol and aspirin Hemodynamic stable ST depression noted on EKG Previous angiogram was done last year Appreciate cardiology recommendations Optimize medical therapy antianginal Continue GI cocktail Protonix Continue levothyroxineLevothyroxine For hypertension continue lisinopril Cardiac diet Full code DVT prophylaxis covered Attestations Medical Necessity Statement*: Continue medical therapy Coding Level of Care Code 93727 Diagnoses Palpitations R00.2 Chest pain R07.89 Chest pain type: other chest pain
[2023-05-18] VITALS (8 sets, daily range): BP systolic 101–147; BP diastolic 59–84; PULSE 69–96; RESP 18–24; TEMP 36.8–37.4; O2SAT 95–99
[2023-05-18] MEDS: ondansetron 2 mg/ML SDV 2 mL 4 MG IVP (04:44)
--- NOTE | 2023-05-18 08:25 | PC.NURSE ---
Dr. Neff notified via phone. Pt having intractable N/V, patient reports vomiting all night . Observed yellow bile. While patient on monitor, HR would vagal down to 30's. Pt reports she can not do this right now . Medications reviewed on OCT and had Zofran given at 0444. Received orders to postpone stress test at this time.
--- NOTE | 2023-05-18 09:49 | P.PN_ITS ---
Subjective Subjective: Patient was having nausea and vomiting this morning. Her heart rate also was very low with nausea due to heightened vagal response. For this reason, the stress test was canceled. She denies any chest pain or shortness of breath. No fever or chills. Medications: Medication Review Details: Current Medications Acetaminophen (Acetaminophen 500 Mg Tablet) 500 mg PO Q4H PRN PRN Reason: fever Last Admin: 05/17/23 04:55 Dose: 500 mg Albuterol/Ipratropium (Ipratropium-Albuterol 3 Ml Neb) 3 ml INHALATION Q6H PRN PRN Reason: SHORTNESS OF BREATH Aminophylline (Aminophylline 25 Mg/Ml Sdv 10 Ml) 25 mg IVP Q2M PRN PRN Reason: see dose instructions Stop: 05/19/23 06:22 Atorvastatin Calcium (Atorvastatin 40 Mg Tablet) 40 mg PO DAILY [facility] Last Admin: 05/17/23 08:54 Dose: 40 mg Enoxaparin Sodium (Enoxaparin 40 Mg/0.4 Ml Syringe) 40 mg SUBCUT Q12H [facility] Last Admin: 05/17/23 20:29 Dose: 40 mg Nitroglycerin/Dextrose (Nitroglycerin Drip) 50 mg in 250 mls @ 0 mls/hr IV .Q0M [facility]; Protocol Last Titration: 05/16/23 18:59 Dose: 0 mcg/min, 0 mls/hr Sodium Chloride (Sodium Chloride 0.9%) 1,000 mls @ 75 mls/hr IV .[id number] [facility] Last Infusion: 05/18/23 04:46 Dose: Infused Levothyroxine Sodium (Levothyroxine 25 Mcg Tablet) 25 mcg PO QAM [facility] Last Admin: 05/17/23 05:41 Dose: 25 mcg Lisinopril (Lisinopril 5 Mg Tablet) 5 mg PO DAILY PRN PRN Reason: Systolic blood pressure above 140 diastolic above 90 Metoprolol Tartrate (Metoprolol Tartrate 25 Mg Tablet) 25 mg PO DAILY [facility] Last Admin: 05/17/23 08:54 Dose: 25 mg Morphine Sulfate (Morphine 4 Mg/Ml Sdv 1 Ml) 2 mg IVP Q4H PRN PRN Reason: SEVERE PAIN Last Admin: 05/17/23 14:52 Dose: 2 mg Morphine Sulfate (Morphine Ir 15 Mg Tablet) 15 mg PO Q6H PRN PRN Reason: MODERATE PAIN Nitroglycerin (Nitroglycerin 0.4 Mg Sublingual Tablet) 0.4 mg SUBLINGUAL Q5M PRN PRN Reason: CHEST PAIN Stop: 05/19/23 06:22 Ondansetron HCl (Ondansetron 2 Mg/Ml Sdv 2 Ml) 4 mg IVP Q6H PRN PRN Reason: NAUSEA AND VOMITING Last Admin: 05/18/23 04:44 Dose: 4 mg Ondansetron HCl (Ondansetron 2 Mg/Ml Sdv 2 Ml) 4 mg IVP Q6H PRN PRN Reason: NAUSEA AND VOMITING Ondansetron HCl (Ondansetron 2 Mg/Ml Sdv 2 Ml) 4 mg IVP Q2M PRN PRN Reason: NAUSEA Pantoprazole Sodium (Pantoprazole Dr 40 Mg Tablet) 40 mg PO QAM [facility] Last Admin: 05/17/23 05:41 Dose: 40 mg Regadenoson (Regadenoson 0.4 Mg/5 Ml Syringe) 0.4 mg IVP ONCE PRN PRN Reason: Lexiscan Stress Test Vitals/I&O/Wt Last Vital Signs Temp 98.9 F 05/18/23 04:53 Pulse 77 05/18/23 09:38 Resp 18 05/18/23 09:38 BP 115/65 05/18/23 08:00 Pulse Ox 96 05/18/23 09:38 O2 Del Method Room Air 05/18/23 09:38 05/17/23 05/18/23 05/18/23 22:59 06:59 14:59 Intake Total 0 / 1000 1000 / 1999 Balance 0 / 1000 1000 / 1999 Weight last 48 hrs Weight 100 lb Physical Exam Narrative: GENERAL: The patient is alert and oriented times three. Not in any acute distress. Appears to be somewhat nervous HEENT: No significant pallor, icterus or lymphadenopathy.Oral cavity: There are no mucous membrane lesions. NECK: Trachea appears to be central. No masses noted. No JVD or thyromegaly appreciated. RESPIRATORY: Chest is symmetrical. No intercostals muscle retraction or any accessory muscle activation. There is no chest wall tenderness. Breath sounds are heard bilaterally. No rales or rhonchi heard. No evidence of any consolidation. BREASTS: Deferred. HEART: The heart sounds are normal. No S3 or S4. No significant murmurs. No pericardial rub ABDOMEN: No vessel pulsations or distention. No tenderness. No organomegaly appreciated. Bowel sounds are normally heard. : Deferred. RECTAL: Deferred. LYMPHATIC: No lymphadenopathy noted in the neck. EXTREMITIES: No edema or cyanosis. No clubbing. MUSCULOSKELETAL: No acute joint deformities or swelling SKIN: There are no significant rashes or ecchymosis NEUROPSYCHIATRIC: The patient is alert and oriented x3. Appears to be in a good mood. No tremors or rigidity noted. Data 05/17/23 05:15 05/17/23 05:15 Other Labs: Laboratory Last Values WBC 4.51 10^3/uL (3.29-11.43) 05/17/23 05:15 RBC 4.10 10^6/uL (3.85-5.65) 05/17/23 05:15 Hgb 10.30 g/dL (11.27-16.99) L 05/17/23 05:15 Hct 33.7 % (36-47) L 05/17/23 05:15 MCV 82.2 fl (85-98) L 05/17/23 05:15 MCH 25.1 pg (27-33) L 05/17/23 05:15 MCHC 30.6 g/dL (30-55) 05/17/23 05:15 RDW 14.4 % (12.1-15.1) 05/17/23 05:15 Plt Count 230 10^3/cmm (157-399) 05/17/23 05:15 MPV 10.2 fL (7.4-10.4) 05/17/23 05:15 Neut % (Auto) 40.4 % 05/17/23 05:15 Lymph % (Auto) 43.5 % 05/17/23 05:15 [place] % (Auto) 9.5 % 05/17/23 05:15 Eos % (Auto) 6.2 % 05/17/23 05:15 Baso % (Auto) 0.2 % 05/17/23 05:15 Neut # (Auto) 1.82 10^3/uL (1.8-7.7) 05/17/23 05:15 Lymph # (Auto) 2.0 10^3/uL (0.8-4.8) 05/17/23 05:15 [place] # (Auto) 0.4 10^3/uL (0.2-0.9) 05/17/23 05:15 Eos # (Auto) 0.3 10^3/uL (0.0-0.8) 05/17/23 05:15 Baso # (Auto) 0.0 10^3/uL (0.0-0.1) 05/17/23 05:15 Nucleated RBC % (auto) 0 % 05/17/23 05:15 Nucleated RBCs # 0.0 /100WBC 05/17/23 05:15 D-Dimer 0.81 ug/mLFEU (0-0.59) H 05/16/23 16:31 Sodium 133 mmol/L (136-145) L 05/17/23 05:15 Potassium 3.8 mmol/L (3.5-5.1) 05/17/23 05:15 Chloride 101 mmol/L (98-107) 05/17/23 05:15 Carbon Dioxide 26 mmol/L (22-29) 05/17/23 05:15 Anion Gap 9.8 (5-19) 05/17/23 05:15 BUN 11 mg/dL (6-20) 05/17/23 05:15 Creatinine 0.6 mg/dL (0.5-0.9) 05/17/23 05:15 GFR Calculation 102.7 mL/min (90-130) 05/17/23 05:15 Glucose 96 mg/dL (65-115) 05/17/23 05:15 Estimat Average Glucose 100 05/17/23 00:55 Hemoglobin A1c 5.1 % (4.0-6.0) 05/17/23 00:55 Calculated Osmolality 275 mOsm/kg (285-295) L 05/17/23 05:15 Calcium 8.4 mg/dL (8.5-10.5) L 05/17/23 05:15 Phosphorus 3.0 mg/dL (2.5-4.5) 05/17/23 05:15 Magnesium 2.2 mg/dL (1.7-2.3) 05/17/23 05:15 Total Bilirubin 0.2 mg/dL (0.15-1.2) 05/16/23 16:31 AST 17 U/L (0-32) 05/16/23 16:31 ALT 8 U/L (0-33) 05/16/23 16:31 Alkaline Phosphatase 87 U/L (35-105) 05/16/23 16:31 Troponin T Baseline < 6 ng/L (0-10) 05/16/23 16:31 Troponin T 120 Minute 6.0 ng/L (0-10) 05/16/23 18:35 Delta Troponin T 0.64595 ABS# (0-10) 05/16/23 18:35 Troponin T Hi Sens 6Hr 6.0 ng/L (0-10) 05/16/23 22:31 Troponin T Hi Sens 6Hr Delta 0.07604 ng/L (0-12) 05/16/23 22:31 Total Protein 6.8 g/dL (6.6-8.7) 05/16/23 16:31 Albumin 4.2 g/dL (3.5-5.2) 05/16/23 16:31 Globulin 2.6 g/dL (1.3-4.6) 05/16/23 16:31 Vitamin B12 228 pg/mL (232-1245) L 05/17/23 00:55 Other data: Echocardiogram from yesterday 05/07/2020 Normal left ventricular size and systolic function, EF 62 %. No ?regional wall motion abnormalities. ?Mild tricuspid valve regurgitation.? ?Estimated pulmonary artery peak systolic pressure 28 mm of Hg. ?Normal cardiac chamber sizes ?There is no significant pericardial effusion. A&P Assessment and plan (1) Atherosclerotic heart disease of [place] coronary artery with other forms of angina pectoris: We may consider doing a stress test once the GI symptoms are resolved. (2) Dyslipidemia: May continue on the current medications. (3) Bradycardia: She has episodes of bradycardia with the vagal stimulation. May not require any specific intervention at this point. Should be focusing more on the primary symptoms. (4) Benign essential hypertension with target blood pressure below 140/90: Currently normotensive. May continue on the current medications. Plan The echocardiogram findings were reviewed. At this point, there is no urgency in doing the stress test. We may even consider this as an outpatient Attestations Medical Necessity Statement*: Deferred to the primary Coding Level of Care Code Acute Code for [facility] Diagnoses Atherosclerotic heart disease of [place] coronary artery with other forms of angina pectoris I25.118 Dyslipidemia E78.5 Bradycardia R00.1 Benign essential hypertension with target blood pressure below 140/90 I10
--- NOTE | 2023-05-18 09:56 | P.DS_ITS ---
Discharge Providers Date of Admission: 05/16/23 17:32 Date of Discharge: May 18, 2023 Attending Provider at Admission: David Sotelo MD Attending Provider at Discharge: David Sotelo MD Primary Care Provider: Braden Owen NP Diagnoses at Discharge Discharge Diagnosis (1) Atherosclerotic heart disease of [place] coronary artery with other forms of angina pectoris: Status: Inactive (2) Dyslipidemia: Status: Inactive (3) Bradycardia: Status: Inactive (4) Benign essential hypertension with target blood pressure below 140/90: Status: Inactive Reason for Visit Reason for Visit: CP Hospital Course Hospital Course 58-year female who was admitted for management evaluation of atypical chest pain, echo did not show any wall motion abnormality, Dr. Neff was consulted who did not recommend any intervention other than outpatient stress test, patient does get GI related symptoms with recurrent nausea vomiting vasovagal response. D-dimer unremarkable. Her symptoms improved with use of scopolamine patch. CODE STATUS is DNR/DNI. Patient lives with her family. She will be discharged home with stable hemodynamics. She does have low vitamin B12, she was given intramuscular injection of vitamin B12 during hospitalization we will give her p.o. regimen at the time of discharge Please note patient does get bradycardia with her excessive vomiting due to vasovagal response. She does not have an indication for pacemaker placement. She is not on any AV zenobia blocking agent. Her heart rate improved as soon as her vomiting improved. She seems to have complex migraine. Metoprolol and lisinopril were discontinued on her previous admission Physical Exam Narrative: Awake and alert GCS 15 Pleasant cooperative Currently on room air Discharge Data Studies Completed and Pending Completed Studies During Hospitalization Category Date Time Status XR chest 1V portable [id number] Stat Exams 05/16/23 16:13 Completed CV. echo complete* [id number] Routine Ultrasound 05/17/23 06:00 Completed Pending at discharge Category Date Time Status Sestamibi Stress Test Request Routine Exams 05/17/23 18:10 Ordered CDIFF [Clostridium Diffi Toxin Reflex] Routine Lab 05/16/23 19:39 Ordered Clostridium Diffi Toxin Reflex Routine Lab 05/16/23 19:39 Ordered Immunochemical Fecal OCB Routine Lab 05/16/23 19:39 Ordered Lactoferrin Routine Lab 05/16/23 19:39 Ordered OVA and Parasites, Conc and PE Routine Lab 05/16/23 19:39 Ordered Salmonella / Shigella / Campy Routine Lab 05/16/23 19:39 Ordered NM jewels perf SPECT r/s* [id number] Routine Nuc Med 05/18/23 09:00 Ordered Radiology Impressions Chest X-Ray 05/16/23 16:13 IMPRESSION: No acute findings. Laboratory Results WBC 4.51 10^3/uL (3.29-11.43) 05/17/23 05:15 RBC 4.10 10^6/uL (3.85-5.65) 05/17/23 05:15 Hgb 10.30 g/dL (11.27-16.99) L 05/17/23 05:15 Hct 33.7 % (36-47) L 05/17/23 05:15 MCV 82.2 fl (85-98) L 05/17/23 05:15 MCH 25.1 pg (27-33) L 05/17/23 05:15 MCHC 30.6 g/dL (30-55) 05/17/23 05:15 RDW 14.4 % (12.1-15.1) 05/17/23 05:15 Plt Count 230 10^3/cmm (157-399) 05/17/23 05:15 MPV 10.2 fL (7.4-10.4) 05/17/23 05:15 Neut % (Auto) 40.4 % 05/17/23 05:15 Lymph % (Auto) 43.5 % 05/17/23 05:15 [place] % (Auto) 9.5 % 05/17/23 05:15 Eos % (Auto) 6.2 % 05/17/23 05:15 Baso % (Auto) 0.2 % 05/17/23 05:15 Neut # (Auto) 1.82 10^3/uL (1.8-7.7) 05/17/23 05:15 Lymph # (Auto) 2.0 10^3/uL (0.8-4.8) 05/17/23 05:15 [place] # (Auto) 0.4 10^3/uL (0.2-0.9) 05/17/23 05:15 Eos # (Auto) 0.3 10^3/uL (0.0-0.8) 05/17/23 05:15 Baso # (Auto) 0.0 10^3/uL (0.0-0.1) 05/17/23 05:15 Nucleated RBC % (auto) 0 % 05/17/23 05:15 Nucleated RBCs # 0.0 /100WBC 05/17/23 05:15 D-Dimer 0.81 ug/mLFEU (0-0.59) H 05/16/23 16:31 Sodium 133 mmol/L (136-145) L 05/17/23 05:15 Potassium 3.8 mmol/L (3.5-5.1) 05/17/23 05:15 Chloride 101 mmol/L (98-107) 05/17/23 05:15 Carbon Dioxide 26 mmol/L (22-29) 05/17/23 05:15 Anion Gap 9.8 (5-19) 05/17/23 05:15 BUN 11 mg/dL (6-20) 05/17/23 05:15 Creatinine 0.6 mg/dL (0.5-0.9) 05/17/23 05:15 GFR Calculation 102.7 mL/min (90-130) 05/17/23 05:15 Glucose 96 mg/dL (65-115) 05/17/23 05:15 Estimat Average Glucose 100 05/17/23 00:55 Hemoglobin A1c 5.1 % (4.0-6.0) 05/17/23 00:55 Calculated Osmolality 275 mOsm/kg (285-295) L 05/17/23 05:15 Calcium 8.4 mg/dL (8.5-10.5) L 05/17/23 05:15 Phosphorus 3.0 mg/dL (2.5-4.5) 05/17/23 05:15 Magnesium 2.2 mg/dL (1.7-2.3) 05/17/23 05:15 Total Bilirubin 0.2 mg/dL (0.15-1.2) 05/16/23 16:31 AST 17 U/L (0-32) 05/16/23 16:31 ALT 8 U/L (0-33) 05/16/23 16:31 Alkaline Phosphatase 87 U/L (35-105) 05/16/23 16:31 Troponin T Baseline < 6 ng/L (0-10) 05/16/23 16:31 Troponin T 120 Minute 6.0 ng/L (0-10) 05/16/23 18:35 Delta Troponin T 0.07208 ABS# (0-10) 05/16/23 18:35 Troponin T Hi Sens 6Hr 6.0 ng/L (0-10) 05/16/23 22:31 Troponin T Hi Sens 6Hr Delta 0.95087 ng/L (0-12) 05/16/23 22:31 Total Protein 6.8 g/dL (6.6-8.7) 05/16/23 16:31 Albumin 4.2 g/dL (3.5-5.2) 05/16/23 16:31 Globulin 2.6 g/dL (1.3-4.6) 05/16/23 16:31 Vitamin B12 228 pg/mL (232-1245) L 05/17/23 00:55 Vitals Last Vital Signs Temp 98.9 F 05/18/23 04:53 Pulse 77 05/18/23 09:38 Resp 18 05/18/23 09:38 BP 115/65 05/18/23 08:00 Pulse Ox 96 05/18/23 09:38 O2 Del Method Room Air 05/18/23 09:38 Discharge Plan Discharge Patient Disposition: Home Condition: Stable Prescriptions: New Imodium A-D 2 mg capsule 2 mg PO Q6H PRN (Reason: loose stool) Qty: 7 0RF Continued (DME) Cam [place] to the left See Rx Instructions .Route .MEDSUPPLY Qty: 1 0RF Rx Instructions: As directed multivitamin Tablet 1 tab PO QAM levothyroxine 25 mcg tablet 25 mcg PO QAM ibandronate 150 mg tablet 150 mg PO Q30D tizanidine 2 mg tablet 2 mg PO Q6H PRN (Reason: Spasms) albuterol sulfate 90 mcg/actuation HFA aerosol inhaler 2 puff inhalation Q4H PRN (Reason: shortness of breath or wheezing) omeprazole magnesium [Prilosec OTC] 20 mg tablet,delayed release (DR/EC) 20 mg PO QAM Excedrin Migraine 250-250-65 mg Tablet 1 tab PO Q6H PRN (Reason: Pain) ondansetron 4 mg tablet,disintegrating 4 mg PO Q8H PRN (Reason: nausea and vomiting) Qty: 15 0RF methocarbamol 750 mg tablet 750 mg PO Q8H Qty: 21 0RF meloxicam 7.5 mg tablet 7.5 mg PO DAILY Discharge Orders: Discharge Order (Routine); Ordered 05/18/23 Ordered By: David Sotelo Referrals: Braden Owen NP [Primary Care Provider] - 05/25/23 1:30 pm Patient Instructions: Loperamide (By mouth) (Imodium A-D, Imotil, Anti- Diarrheal, Diamode), Chest Pain (DC), Low Fat Diet (DC), Hypertension (DC), Chest Pain Stoplight, Opioid Safety Discharge Attestations Time Spent in Discharge Care*: greater than 30 min Quality Metrics Clinical Quality Measures [ No reported AMI, CVA or VTE this stay] Coding Level of Care Code Acute Code for Chg Fwd Diagnoses Atherosclerotic heart disease of [place] coronary artery with other forms of angina pectoris I25.118 Dyslipidemia E78.5 Bradycardia R00.1 Benign essential hypertension with target blood pressure below 140/90 I10
--- NOTE | 2023-05-18 09:59 | CT_ITS ---
WS: [id number] CT ABDOMEN PELVIS TECHNIQUE: Noncontrast CT of the abdomen and pelvis with coronal and sagittal reformatted images. CLINICAL INFORMATION: vomit COMPARISON: CT 12/28/2022 DLP: 293.[address] scans at [facility] use at least one of these dose optimization techniques: automated e xposure control; mA and/or kV adjustment per patient size (includes targeted exams where dose is matc hed to clinical indication); or iterative reconstruction. FINDINGS: Lung bases are well aerated. Noncontrast pancreas with fatty atrophy. RIGHT adrenal gland i s normal. Normal noncontrast abdominal aorta. Urine distended bladder. Tubal ligation clips. Hysterec pat. Mild fecal retention in the transverse colon. No high-grade small or large bowel obstruction. N o hydronephrosis in either kidney. Cholecystectomy. Prior hysterectomy. LEFT adrenal adenoma measuring 1.6 cm unchanged. Postoperative c hanges at the GE junction. Postoperative changes distal stomach. IMPRESSION: 1. Prior cholecystectomy. 2. Appendectomy with hysterectomy. 3. No hydronephrosis in either kidney. Postoperative changes GE junction and distal stomach. 4. Stable LEFT adrenal adenoma. 5. No acute findings.
[2023-05-18] MEDS: enoxaparin 40 mg/0.4 mL Syringe SUBCUT (10:00)
== END 2023-05-18 15:42 | disposition home or self-care (01) ==
LOC: ER 16:50 → CSU 18:56
PROVIDERS: Admitting Provider Internal Medicine; Emergency Provider Family Medicine; PCP Nurse Practitioner Family; Visit Provider Internal Medicine
DX: I25.118 Atherosclerotic heart disease of native coronary artery with other forms of angina pectoris (principal); E78.5 Hyperlipidemia, unspecified; R00.1 Bradycardia, unspecified; I10 Essential (primary) hypertension; Z66 Do not resuscitate; I07.1 Rheumatic tricuspid insufficiency; Z87.891 Personal history of nicotine dependence
CPT/HCPCS: 36415; 71045; 74176; 80048; 80053; 82607; 83036; 83735; 84100; 84484; 85025; 85378; 93005; 93306; 96361; 96365; 96372; 96375; 96376; 99285; C9113; G0378; J1650; J2270; J2405; J3420; J3490; J7030

== ENCOUNTER 2023-07-16 04:21 | Inpatient (IN) | payer MEDICAID, SELFPAY ==
[2023-07-16] VITALS (14 sets, daily range): BP systolic 114–130; BP diastolic 69–91; PULSE 88–119; RESP 15–18; TEMP 36.5–36.8; O2SAT 93–99; BMI 19.5
--- NOTE | 2023-07-16 04:27 | XRR_ITS ---
PROCEDURE INFORMATION: Exam: XR Abdomen Exam date and time: 07/16/2023 4:42 AM Age: 58 years old Clinical indication: Abdominal pain; Generalized; Prior surgery; Surgery date: 6+ months; Surgery type: Gb, tubal, partial stomach and colon removal, ulcers; Additional info: Abd pain/constipation TECHNIQUE: Imaging protocol: Radiologic exam of the abdomen. Views: Frontal supine view of the abdomen. 1 View. COMPARISON: CT abdomen pelvis con [id number] 05/18/2023 11:45 AM FINDINGS: Gastrointestinal tract: Multiple gas dilated loops of abdominal small bowel indicate small bowel obstruction. Evidence of prior abdominal surgery. There is a large amount of food within the stomach. Bones/joints: Unremarkable. Soft tissues: Prior tubal ligation. XR/XR abdomen 1V* [id number] IMPRESSION: Small bowel obstruction.
--- NOTE | 2023-07-16 04:36 | ED_ITS ---
Documented by User: Pipo Canada MD 08/12/23 06:36 HPI - Abdominal Pain 2 General: Chief Complaint: Abdominal Pain Stated Complaint: abd pain Time Seen by Provider: 07/16/23 04:27 History of Present Illness: 58-year-old female presents to the emerg ency department with complaints of abdominal pain. She states that she has not had a bowel movement the previous 3 days. She states she has nausea with a single episode of vomiting. She states that she has intermittent abdominal cramping that is sharp and stabbing in nature and when it does occur it is a 9 out of 10. Associated Symptoms: Reports constipation, GI cramping, nausea and vomiting Review of Systems 2 General: Reports: 10 or more systems reviewed and unremarkable except in HPI and below GI: Reports: abdominal pain, nausea, vomiting, constipation and GI cramping PFSH ED 2 PFSH: Medical History Atherosclerotic heart disease of [place] coronary artery with other forms of angina pectoris GERD (gastroesophageal reflux disease) Benign essential hypertension with target blood pressure below 140/90 Bradycardia AV block, 2nd degree Recurrent vomiting HTN (hypertension) Nausea and vomiting Dyslipidemia Elevated blood pressure reading Unstable angina Chest pain Palpitations Chest pain Emphysema of lung Quit in 2020 Chronic migraine without aura, intractable, with status migrainosus Surgical History H/O colonoscopy History of surgery ULCERS AND PART OF STOMACH REMOVED History of colon resection History of hysterectomy History of appendectomy History of cholecystectomy Family History Mother CAD (coronary artery disease), Onset Age: 50 Cancer Lung disease Stroke Denies family history of Diabetes Clotting disorder Dementia Chronic kidney disease (CKD) Suicide Anesthesia complication Bleeding disorder Social History Smoking and tobacco/nicotine status: former use of tobacco/nicotine (3-4years ago) Alcohol intake: former Substance/Drug Use: never Physical Exam 2 Narrative: EXAM NARRATIVE: Constitutional: the patient appears well nourished and with normal development. Vital signs reviewed as documented. HENMT: Normocephalic, atraumatic. Extermal ears with normal appearance without drainage. Nose without drainage, normal appearance. Mucus membranes moist. Neck is supple, No jugular venous distension, trachea is midline, no appreciable carotid bruits. No lymphadenopathy. No meningeal signs. Flexion, extension and lateral rotation is without pain. Eyes: Pupils are equal, round, reactive to light and accommodation. No scleral icterus. Extra-ocular movement are intact. Thorax is symmetrical and with equal rise and fall with respirations. Resp: Lungs are clear to auscultation. No wheezes, rales, crackles or ronchi at present. Cardio: Regular rate and rhythm. Positive S1, S2. No appreciable murmurs, rubs or gallops. GI: Abdominal exam reveals normal bowel sounds to all quadrants. No organomegaly. No obvious palpable masses noted. No hepatomegally appreciated. Soft, nontender to palpation. Extremity: Extremities are non-edematous and both femoral and pedal pulses are 2+ and equal bilaterally. Moves all extremities well, sensation in all extremities. Neuro: Alert and oriented x4, person, place, time and situation. Cranial nerves II through XII are grossly intact, there is no focal neurological deficits that I can appreciate at present. Motor strength in the upper and lower extremities are equal and bilateral 5/5. Psych: Cooperative, calm, normal thought process, appropriate judgment. Skin: No lesions, rashes. No gross abnormalities noted. Back: Symmetrical, no obvious deformity, No CVA tenderness Course 2 Vital Signs: Vital signs: Vital Signs Temperature 98.6 F 07/19/23 16:01 Pulse Rate 90 07/19/23 16:01 Respiratory Rate 16 07/19/23 16:01 Blood Pressure 142/75 07/19/23 16:01 Pulse Oximetry 95 07/19/23 16:01 Oxygen Delivery Me thod Room Air 07/19/23 11:30 MDM - Abdominal Pain Medical Decision Making Physical exam completed and documented, I will obtain laboratory evaluation to include a CBC, CMP, lipase, urinalysis, and a CT scan of the patient's abdomen pelvis to evaluate for possible differential diagnosis of bowel obstruction, incarcerated hernia, abdominal wall strain, abdominal wall hematoma, constipation. I will provide the patient IV access and IV fluid as well as a CT scan abdomen pelvis with contrast for evaluation for possible colitis, acute appendicitis, diverticulitis. Medical Records I reviewed the patient's medical records. Lab Data 07/19/23 06:05 07/19/23 06:05 Labs/Radiology: Radiology Impressions Abdomen/Pelvis CT 07/16/23 04:53 IMPRESSION: Small bowel obstruction. ADDENDUM: 07/16/23 0649 THIS REPORT CONTAINS FINDINGS THAT MAY BE CRITICAL TO PATIENT CARE. The findings were verbally communicated via telephone conference with Dr. Graham at 6:48 AM WINE STEWARD/STEWARDESS on 07/16/2023. The findings were acknowledged and understood. Chest X-Ray 07/18/23 06:09 IMPRESSION: No acute cardiopulmonary disease. Abdomen X-Ray 07/18/23 11:09 IMPRESSION: Contrast throughout the colon indicates patency of small bowel. No visibly dilated small bowel. Laboratory Results WBC 15.85 10^3/uL (3.29-11.43) H 07/16/23 05:05 Corrected WBC Cancelled 07/16/23 04:06 RBC 4.62 10^6/uL (3.85-5.65) 07/16/23 05:05 Hgb 11.40 g/dL (11.27-16.99) 07/16/23 05:05 Hct 36.5 % (36-47) 07/16/23 05:05 MCV 79.0 fl (85-98) L 07/16/23 05:05 MCH 24.7 pg (27-33) L 07/16/23 05:05 MCHC 31.2 g/dL (30-55) 07/16/23 05:05 RDW 14.6 % (12.1-15.1) 07/16/23 05:05 Plt Count 317 10^3/cmm (157-399) 07/16/23 05:05 MPV 9.8 fL (7.4-10.4) 07/16/23 05:05 Gran % Cancelled 07/16/23 04:06 Neut % (Auto) 86.2 % 07/16/23 05:05 Lymph % (Auto) 8.2 % 07/16/23 05:05 [place] % (Auto) 4.4 % 07/16/23 05:05 Eos % (Auto) 0.7 % 07/16/23 05:05 Baso % (Auto) 0.1 % 07/16/23 05:05 Neut # (Auto) 13.66 10^3/uL (1.8-7.7) H 07/16/23 05:05 Lymph # (Auto) 1.3 10^3/uL (0.8-4.8) 07/16/23 05:05 [place] # (Auto) 0.7 10^3/uL (0.2-0.9) 07/16/23 05:05 Eos # (Auto) 0.1 10^3/uL (0.0-0.8) 07/16/23 05:05 Baso # (Auto) 0.0 10^3/uL (0.0-0.1) 07/16/23 05:05 Absolute Gran (auto) Cancelled 07/16/23 04:06 Nucleated RBC % (auto) 0 % 07/16/23 05:05 Nucleated RBCs # 0.0 /100WBC 07/16/23 05:05 Sodium 137 mmol/L (136-145) 07/16/23 05:05 Potassium 3.8 mmol/L (3.5-5.1) 07/16/23 05:05 Chloride 100 mmol/L (98-107) 07/16/23 05:05 Carbon Dioxide 23 mmol/L (22-29) 07/16/23 05:05 Anion Gap 17.8 (5-19) 07/16/23 05:05 BUN 19 mg/dL (6-20) 07/16/23 05:05 Creatinine 0.7 mg/dL (0.5-0.9) 07/16/23 05:05 GFR Calculation 85.9 mL/min (90-130) L 07/16/23 05:05 Glucose 165 mg/dL (65-115) H 07/16/23 05:05 Calculated Osmolality 290 mOsm/kg (285-295) 07/16/23 05:05 Lactic Acid 1.3 mmol/L (0.5-2.2) 07/16/23 07:06 Calcium 9.8 mg/dL (8.5-10.5) 07/16/23 05:05 Magnesium 1.9 mg/dL (1.7-2.3) 07/16/23 05:05 Total Bilirubin 0.2 mg/dL (0.15-1.2) 07/16/23 05:05 AST 18 U/L (0-32) 07/16/23 05:05 ALT 12 U/L (0-33) 07/16/23 05:05 Alkaline Phosphatase 95 U/L (35-105) 07/16/23 05:05 Total Protein 7.3 g/dL (6.6-8.7) 07/16/23 05:05 Albumin 4.5 g/dL (3.5-5.2) 07/16/23 05:05 Globulin 2.8 g/dL (1.3-4.6) 07/16/23 05:05 Lipase 14 U/L (13-60) 07/16/23 05:05 TSH 4.60 uIU/mL (0.27-4.20) H 07/16/23 05:05 Urine Color Yellow (Yellow) 07/16/23 06:50 Urine Appearance Clear (CLEAR) 07/16/23 06:50 Urine pH 5 (5-7) 07/16/23 06:50 Ur Specific [place] 1.015 (1.005-1.030) 07/16/23 06:50 Urine Protein Neg (Negative) 07/16/23 06:50 Urine Glucose (UA) Norm (Normal) 07/16/23 06:50 Urine Ketones Negative (Negative) 07/16/23 06:50 Urine Blood Neg (Negative) 07/16/23 06:50 Urine Nitrate Negative (Negative) 07/16/23 06:50 Urine Bilirubin 1+ (Negative) H 07/16/23 06:50 Urine Urobilinogen Neg mg/dL (Negative) 07/16/23 06:50 Ur Leukocyte Esterase Negative (Negative) 07/16/23 06:50 Discharge Plan Discharge Patient Disposition: Admitted As Inpatient Admit Provider: Calvin Caceres Clinical Impression: Small bowel obstruction, AV block, 2nd degree, COPD (chronic obstructive pulmonary disease) Condition: Stable Discharge Diet: Advance as tolerated Discharge Activity: Resume usual activity Sign Out Sign Out Data: Patient Sign Out occurred on 07/16/23 at 05:55. Patient's care was discussed, and care was transferred from Pipo Canada MD to Narendra Graham DO. Coding Level of Care Code ED Mold Tooler for Chg Fwd Documented by User: Narendra Graham DO 07/16/23 08:00 HPI - Abdominal Pain 2 General: Chief Complaint: Abdominal Pain Stated Complaint: abd pain Time Seen by Provider: 07/16/23 04:27 [facility] ED 2 PFSH: Medical History Atherosclerotic heart disease of [place] coronary artery with other forms of angina pectoris GERD (gastroesophageal reflux disease) Benign essential hypertension with target blood pressure below 140/90 Bradycardia AV block, 2nd degree Recurrent vomiting HTN (hypertension) Nausea and vomiting Dyslipidemia Elevated blood pressure reading Unstable angina Chest pain Palpitations Chest pain Emphysema of lung Quit in 2019 Chronic migraine without aura, intractable, with status migrainosus Surgical History H/O colonoscopy History of surgery ULCERS AND PART OF STOMACH REMOVED History of colon resection History of hysterectomy History of appendectomy History of cholecystectomy Family History Mother CAD (coronary artery disease), Onset Age: 50 Cancer Lung disease Stroke Denies family history of Diabetes Clotting disorder Dementia Chronic kidney disease (CKD) Suicide Anesthesia complication Bleeding disorder Social History Smoking and tobacco/nicotine status: former use of tobacco/nicotine (3-4years ago) Alcohol intake: former Substance/Drug Use: never Course 2 Vital Signs: Vital signs: Vital Signs Temperature 98.6 F 07/19/23 16:01 Pulse Rate 90 07/19/23 16:01 Respiratory Rate 16 07/19/23 16:01 Blood Pressure 142/75 07/19/23 16:01 Pulse Oximetry 95 07/19/23 16:01 Oxygen Delivery Me thod Room Air 07/19/23 11:30 MDM - Abdominal Pain Medical Decision Making Physical exam completed and documented, I will obtain laboratory evaluation to include a CBC, CMP, lipase, urinalysis, and a CT scan of the patient's abdomen pelvis to evaluate for possible differential diagnosis of bowel obstruction, incarcerated hernia, abdominal wall strain, abdominal wall hematoma, constipation. I will provide the patient IV access and IV fluid as well as a CT scan abdomen pelvis with contrast for evaluation for possible colitis, acute appendicitis, diverticulitis. Care assumed at change of shift patient has small bowel obstruction will place NG tube. Keep n.p.o. pain medications and fluids admit to Dr. Caceres for small bowel obstruction and management. Patient has several comorbid conditions consult hospitalist for medical management Differential Diagnosis Likely abdominal pain, diverticulitis and small bowel obstruction Lab Data 07/19/23 06:05 07/19/23 06:05 Labs/Radiology: Radiology Impressions Abdomen/Pelvis CT 07/16/23 04:53 IMPRESSION: Small bowel obstruction. ADDENDUM: 07/16/23 0649 THIS REPORT CONTAINS FINDINGS THAT MAY BE CRITICAL TO PATIENT CARE. The findings were verbally communicated via telephone conference with Dr. Graham at 6:48 AM WINE STEWARD/STEWARDESS on 07/16/2023. The findings were acknowledged and understood. Chest X-Ray 07/18/23 06:09 IMPRESSION: No acute cardiopulmonary disease. Abdomen X-Ray 07/18/23 11:09 IMPRESSION: Contrast throughout the colon indicates patency of small bowel. No visibly dilated small bowel. Laboratory Results WBC 15.85 10^3/uL (3.29-11.43) H 07/16/23 05:05 Corrected WBC Cancelled 07/16/23 04:06 RBC 4.62 10^6/uL (3.85-5.65) 07/16/23 05:05 Hgb 11.40 g/dL (11.27-16.99) 07/16/23 05:05 Hct 36.5 % (36-47) 07/16/23 05:05 MCV 79.0 fl (85-98) L 07/16/23 05:05 MCH 24.7 pg (27-33) L 07/16/23 05:05 MCHC 31.2 g/dL (30-55) 07/16/23 05:05 RDW 14.6 % (12.1-15.1) 07/16/23 05:05 Plt Count 317 10^3/cmm (157-399) 07/16/23 05:05 MPV 9.8 fL (7.4-10.4) 07/16/23 05:05 Gran % Cancelled 07/16/23 04:06 Neut % (Auto) 86.2 % 07/16/23 05:05 Lymph % (Auto) 8.2 % 07/16/23 05:05 [place] % (Auto) 4.4 % 07/16/23 05:05 Eos % (Auto) 0.7 % 07/16/23 05:05 Baso % (Auto) 0.1 % 07/16/23 05:05 Neut # (Auto) 13.66 10^3/uL (1.8-7.7) H 07/16/23 05:05 Lymph # (Auto) 1.3 10^3/uL (0.8-4.8) 07/16/23 05:05 [place] # (Auto) 0.7 10^3/uL (0.2-0.9) 07/16/23 05:05 Eos # (Auto) 0.1 10^3/uL (0.0-0.8) 07/16/23 05:05 Baso # (Auto) 0.0 10^3/uL (0.0-0.1) 07/16/23 05:05 Absolute Gran (auto) Cancelled 07/16/23 04:06 Nucleated RBC % (auto) 0 % 07/16/23 05:05 Nucleated RBCs # 0.0 /100WBC 07/16/23 05:05 Sodium 137 mmol/L (136-145) 07/16/23 05:05 Potassium 3.8 mmol/L (3.5-5.1) 07/16/23 05:05 Chloride 100 mmol/L (98-107) 07/16/23 05:05 Carbon Dioxide 23 mmol/L (22-29) 07/16/23 05:05 Anion Gap 17.8 (5-19) 07/16/23 05:05 BUN 19 mg/dL (6-20) 07/16/23 05:05 Creatinine 0.7 mg/dL (0.5-0.9) 07/16/23 05:05 GFR Calculation 85.9 mL/min (90-130) L 07/16/23 05:05 Glucose 165 mg/dL (65-115) H 07/16/23 05:05 Calculated Osmolality 290 mOsm/kg (285-295) 07/16/23 05:05 Lactic Acid 1.3 mmol/L (0.5-2.2) 07/16/23 07:06 Calcium 9.8 mg/dL (8.5-10.5) 07/16/23 05:05 Magnesium 1.9 mg/dL (1.7-2.3) 07/16/23 05:05 Total Bilirubin 0.2 mg/dL (0.15-1.2) 07/16/23 05:05 AST 18 U/L (0-32) 07/16/23 05:05 ALT 12 U/L (0-33) 07/16/23 05:05 Alkaline Phosphatase 95 U/L (35-105) 07/16/23 05:05 Total Protein 7.3 g/dL (6.6-8.7) 07/16/23 05:05 Albumin 4.5 g/dL (3.5-5.2) 07/16/23 05:05 Globulin 2.8 g/dL (1.3-4.6) 07/16/23 05:05 Lipase 14 U/L (13-60) 07/16/23 05:05 TSH 4.60 uIU/mL (0.27-4.20) H 07/16/23 05:05 Urine Color Yellow (Yellow) 07/16/23 06:50 Urine Appearance Clear (CLEAR) 07/16/23 06:50 Urine pH 5 (5-7) 07/16/23 06:50 Ur Specific [place] 1.015 (1.005-1.030) 07/16/23 06:50 Urine Protein Neg (Negative) 07/16/23 06:50 Urine Glucose (UA) Norm (Normal) 07/16/23 06:50 Urine Ketones Negative (Negative) 07/16/23 06:50 Urine Blood Neg (Negative) 07/16/23 06:50 Urine Nitrate Negative (Negative) 07/16/23 06:50 Urine Bilirubin 1+ (Negative) H 07/16/23 06:50 Urine Urobilinogen Neg mg/dL (Negative) 07/16/23 06:50 Ur Leukocyte Esterase Negative (Negative) 07/16/23 06:50 All radiology interpretation(s) finalized by discharge Discharge Plan Discharge Patient Disposition: Admitted As Inpatient Admit Provider: Calvin Caceres Clinical Impression: Small bowel obstruction, AV block, 2nd degree, COPD (chronic obstructive pulmonary disease) Condition: Stable Discharge Diet: Advance as tolerated Discharge Activity: Resume usual activity Sign Out Sign Out Data: Patient Sign Out occurred on 07/16/23 at 05:55. Patient's care was discussed, and care was transferred from Pipo Canada MD to Narendra Graham DO. Coding Level of Care Code ED Mold Tooler for Storm Wolfe
--- NOTE | 2023-07-16 04:53 | CTR_ITS ---
PROCEDURE INFORMATION: Exam: CT Abdomen And Pelvis With Contrast Exam date and time: 07/16/2023 6:05 AM Age: 58 years old Clinical indication: Abdominal pain; Generalized; Prior surgery; Surgery date: 6+ months; Surgery type: Bowel resection, gb, hysy, appy; Additional info: Abd pain TECHNIQUE: Imaging protocol: Computed tomography of the abdomen and pelvis with contrast. Radiation optimization: All CT scans at this facility use at least one of these dose optimization techniques: automated exposure control; mA and/or kV adjustment per patient size (includes targeted exams where dose is matched to clinical indication); or iterative reconstruction. Contrast material: OMNI 350; Contrast volume: 80 ml; Contrast route: INTRAVENOUS (IV); REPORTING DATA: Count of CT and Cardiac NM exams in prior 12 months: This patient has received 4 known CTs and 0 known cardiac nuclear medicine studies in the 12 months prior to the current study. COMPARISON: CT abdomen pelvis wo con [id number] 05/18/2023 11:45 AM RADIATION DOSE METRICS: Total DLP (mGy-cm): 381.67 FINDINGS: Liver: Normal. No mass. Gallbladder and bile ducts: Cholecystectomy. Pancreas: Normal. No ductal dilation. Spleen: Normal. No splenomegaly. Adrenal glands: 2 cm left adrenal nodule, probably a nonfunctioning adenoma. Kidneys and ureters: Malrotated kidneys. Stomach and bowel: Small bowel obstruction with multiple loops of dilated bowel. There is fecalization of small bowel contents suggesting this is a longstanding process. The transition zone is in the right mid to lower abdomen. There is a large amount of food plus a radiopaque tablet within the stomach. Prior gastric surgery. Appendix: No evidence of appendicitis. Intraperitoneal space: Unremarkable. No free air. No significant fluid collection. Vasculature: Unremarkable. No abdominal aortic aneurysm. Lymph nodes: Unremarkable. No enlarged lymph nodes. Urinary bladder: Unremarkable as visualized. Reproductive: Hysterectomy. Bones/joints: Unremarkable. No acute fracture. Soft tissues: Unremarkable. Other findings: The transition zone is in the right lower quadrant. CT/CT abdomen pelvis w con* [id number] IMPRESSION: Small bowel obstruction.
[2023-07-16 05:17] LABS: Basophils % 0.1 %; Eosinophils # 0.1 10^3/uL (0.0-0.8); Eosinophils % 0.7 %; Hematocrit 36.5 % (36-47); Lymphocytes # 1.3 10^3/uL (0.8-4.8); Lymphocytes % 8.2 %; Mean Corpuscular HGB Conc 31.2 g/dL (30-55); Mean Corpuscular Hemoglobin 24.7 pg (27-33); Mean Platelet Volume 9.8 fL (7.4-10.4); Monocytes # 0.7 10^3/uL (0.2-0.9); Monocytes % 4.4 %; Neutrophils # 13.66 10^3/uL (1.8-7.7); Neutrophils % 86.2 %; Nucleated Red Blood Cells % 0 %; Platelet Count 317 10^3/cmm (157-399); Red Blood Count 4.62 10^6/uL (3.85-5.65); Red Cell Distribution Width 14.6 % (12.1-15.1); White Blood Count 15.85 10^3/uL (3.29-11.43)
[2023-07-16] MEDS: sodium chloride 0.9% 1,000 ML 999 ML IV (05:17)
[2023-07-16] MEDS: ondansetron 2 mg/ML SDV 2 mL 4 MG IVP (05:22)
[2023-07-16] MEDS: dicyclomine 20 mg Tablet PO (05:23)
[2023-07-16 05:36] LABS: Alanine Aminotransferase 12 U/L (0-33); Albumin Level 4.5 g/dL (3.5-5.2); Alkaline Phosphatase 95 U/L (35-105); Anion Gap 17.8 (5-19); Aspartate Amino Transferase 18 U/L (0-32); Blood Urea Nitrogen 19 mg/dL (6-20); Calcium 9.8 mg/dL (8.5-10.5); Carbon Dioxide 23 mmol/L (22-29); Chloride 100 mmol/L (98-107); Creatinine Clr Calc Pharmacy 71.0802; Globulin 2.8 g/dL (1.3-4.6); Glomerular Filtration Rate 85.9 mL/min (90-130); Glucose 165 mg/dL (65-115); Osmolality Calculated 290 mOsm/kg (285-295); Potassium 3.8 mmol/L (3.5-5.1); Sodium 137 mmol/L (136-145); Total Bilirubin 0.2 mg/dL (0.15-1.2); Total Protein 7.3 g/dL (6.6-8.7)
--- NOTE | 2023-07-16 06:03 | PC.NURSE ---
pt meds this nurse given order by physician to hold non admined meds.
[2023-07-16] MEDS: iohexol 350 mg/mL 500 mL Btl (per mL) IV (06:07)
[2023-07-16 07:04] LABS: Add Urine Microscopic? NO; Charge for UA Resulting for Rev
[2023-07-16 07:10] LABS: Lipase 14 U/L (13-60)
[2023-07-16 07:11] LABS: Urine Appearance Clear (CLEAR); Urine Color Yellow (Yellow); pH Urine 5 (5-7)
[2023-07-16 07:12] LABS: Bilirubin Urine 1+ (Negative); Blood Urine Neg (Negative); Glucose Urine UA Norm (Normal); Ketones Urine Negative (Negative); Leukocyte Esterase Urine Negative (Negative); Nitrate Urine Negative (Negative); Protein Urine Neg (Negative); Specific Gravity, Urine 1.015 (1.005-1.030); Urobilinogen Urine Neg (Negative)
[2023-07-16] MEDS: famotidine 20 mg/2 mL INJ 40 MG IVP (07:21)
[2023-07-16] MEDS: promethazine 25 mg/mL SDV 1 mL IM (07:21)
--- NOTE | 2023-07-16 07:32 | PC.PHAR ---
pt states she no longer has home health pt states she takes care of her own medications-pt states only takes the medications entered pt states the dced all her other meds ibandronate 150mg q30d (ext shows last filled 02/23/23),levothyroxine 25mcg daily (ext shows last filled 02/24/23 30d/s),mobic 7.5mg daily (ext shows last filled 02/25/23 30d/s),lisinopril 5mg daily prn sbp above 140 and dbp above 90 (ext shows last filled 02/23/23 30d/s) lipitor 40mg daily (ext shows last filled 08/11/22 30d/s) and metoprolol tartrate 25mg bid (ext shows last filled 08/11/22 30d/s)
[2023-07-16 07:43] LABS: Lactic Sepsis W/Reflex 1.3 mmol/L (0.5-2.2)
--- NOTE | 2023-07-16 08:02 | XR_ITS ---
WS: [id number] Exam: XR chest 1V portable [id number] Date/Time of Exam: 07/16/2023 8:06 AM Reason For Exam: NG tube placement Comparison 05/16/2023. The lungs are clear and fully inflated. Normal cardiomediastinal silhouette. An NG tube has been plac ed and ends in the body of the stomach. Bony structures are intact. Thoracic scoliosis noted. Numerou s surgical clips in the upper abdomen. There may be residual contrast in both kidneys. IMPRESSION: 1. NG tube ending in the body the stomach. 2. No acute cardiopulmonary process noted.
[2023-07-16] MEDS: cetacaine Spray 5 gm Can 2 SPRAY TOPICAL (08:39)
--- NOTE | 2023-07-16 09:22 | ECG_ITS ---
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 Measurements Intervals Rogers Rate: 89 P: 73 OR: 119 QRS: 66 QRSD: 91 T: 74 QT: 357 QTc: 434 Interpretive Statements SINUS RHYTHM WITH SHORT OR INTERVAL INCOMPLETE RIGHT BUNDLE BRANCH BLOCK [90+ ms QRS DURATION, TERMINAL R IN V1/V2, 40+ ms S IN I/aVL/V4/V5/V6] Compared to ECG 05/16/2023 16:45:55 Incomplete right bundle-branch block now present Electronically Signed On 07-16-2023 12:17:53 ARCADE ATTENDANT by Shahnaz Stone M.D. [id number]
--- NOTE | 2023-07-16 09:22 | P.CONIM_ITS ---
Providers/Reason For Consult 2 Consulting Physician/Specialty*: Modesto Sifuentes MD Reason for Consult*: Medical management Requesting Physician: Dr. Caceres Attending Physician: Calvin Caceres DO Primary Care Provider: Braden Owen NP History of Present Illness History of Present Illness Radha Maguire is a 58 year old female prior history of small bowel obstruction years ago who presents to the emergency department with complaints of abdominal pain, vomiting for 1 day. She reports the pain is very severe, and widespread. She reports no blood in her emesis, and has noticed no blood in her stool. She has not had a bowel movement in 2 days, and reports no flatus in 24 hours. She has had no fever, but some sweating. She denies any chest discomfort. She is in pain, and has trouble relating her history. Review of Systems 2 General: Reports: 10 or more systems reviewed and unremarkable except in HPI and below Card: Denies: chest pain Resp: Denies: dyspnea GI: Reports: abdominal pain, nausea and vomiting; Denies: hematemesis Medications/Allergies Home Medications Medication Instructions Recorded Confirmed Last Taken Type tizanidine 2 mg tablet 2 mg PO Q6H PRN Spasms 10/12/19 07/16/23 Unknown History Cam Boot to the left #1 ea 12/25/21 07/16/23 Unknown Rx albuterol sulfate 90 mcg/actuation 2 puff inhalation Q4H PRN 03/20/22 07/16/23 Unknown History aerosol inhaler shortness of breath or wheezing wwdoxwd-efvdejwtckxgi-syxofgoy 250 2 tab PO Q4H PRN Pain 07/16/23 07/16/23 Unknown History mg-250 mg-65 mg tablet (Excedrin Extra Strength) ferrous sulfate 325 mg (65 mg 325 mg PO QAM 07/16/23 07/16/23 Unknown History iron) tablet nitroglycerin 0.4 mg sublingual 0.4 mg sublingual Q5M PRN Chest 07/16/23 07/16/23 Unknown History tablet (Nitrostat) Pain omeprazole 40 mg capsule,delayed 40 mg PO DAILY PRN Heartburn 07/16/23 07/16/23 Unknown History release tiotropium bromide 2.5 2 inh inhalation DAILY 07/16/23 07/16/23 Unknown History mcg/actuation mist for inhalation (Spiriva Respimat) Allergies Allergy/AdvReac Type Severity Reaction Status Date / Time diphenhydramine Allergy Unknown Verified 07/16/23 07:28 [From Benadryl] hydromorphone [From Dilaudid] Allergy ADR-Vomitin Verified 07/16/23 07:28 g ibuprofen [From Motrin] Allergy ALGY-Anaphy Verified 07/16/23 07:28 laxis Penicillins Allergy ALGY-Anaphy Verified 07/16/23 07:28 laxis tramadol Allergy Unknown Verified 07/16/23 07:28 PFSH Acute 2 PFSH: Medical History (Updated 07/16/23 @ 12:58 by Modesto Sifuentes MD) Atherosclerotic heart disease of [place] coronary artery with other forms of angina pectoris GERD (gastroesophageal reflux disease) Benign essential hypertension with target blood pressure below 140/90 Bradycardia AV block, 2nd degree Recurrent vomiting HTN (hypertension) Nausea and vomiting Dyslipidemia Elevated blood pressure reading Unstable angina Chest pain Palpitations Chest pain Emphysema of lung Quit in 2019 Chronic migraine without aura, intractable, with status migrainosus Surgical History H/O colonoscopy History of surgery ULCERS AND PART OF STOMACH REMOVED History of colon resection History of hysterectomy History of appendectomy History of cholecystectomy Family History Mother CAD (coronary artery disease), Onset Age: 50 Cancer Lung disease Stroke Denies family history of Diabetes Clotting disorder Dementia Chronic kidney disease (CKD) Suicide Anesthesia complication Bleeding disorder Social History Smoking and tobacco/nicotine status: former use of tobacco/nicotine (3-4years ago) Alcohol intake: former Substance/Drug Use: never Vitals/I&O/Wt Last Vital Signs Temp 97.7 F 07/16/23 04:22 Pulse 92 07/16/23 05:57 Resp 17 07/16/23 05:57 BP 130/74 07/16/23 05:57 Pulse Ox 98 07/16/23 06:34 O2 Del Method Room Air 07/16/23 06:34 Weight last 48 hrs Weight 49.895 kg Physical Exam 2 Narrative: General exam demonstrates a white female, who is appears uncomfortable, with NG in place to suction at wall HEENT: Atraumatic normocephalic. NG tube is noted Neck is supple no lymphadenopathy thyromegaly Cardiovascular regular rate and rhythm, no murmur Lungs clear Abdomen tender, hypoactive bowel sounds. Tenderness seems widespread. Midline scar is noted. exam is deferred Extremities no cyanosis clubbing or edema Data 07/16/23 05:05 07/16/23 05:05 Other Labs: LFTs are normal. Lactic acid, calcium, albumin normal. Urinalysis negative. Chest x-ray by my read demonstrates no infiltrate. NG below the diaphragm. Abdominal pelvis CT which I did review demonstrates evidence of small bowel obstruction. There is a large amount of fecal material. Abdominal x-ray which I reviewed demonstrates evidence of small bowel dilation. EKG by my read demonstrates a sinus rhythm, normal axis, rate around 90, with an incomplete right bundle. No acute changes. Micro: Microbiology 07/16/23 07:18 Blood Culture - Preliminary Blood SPECIMEN COLLECTED 07/16/23 07:06 Blood Culture - Preliminary Blood SPECIMEN COLLECTED A&P Assessment and plan (1) Small bowel obstruction: Patient presents with small bowel obstruction Surgery managing Morphine as needed for pain Zofran for nausea IV fluids for hydration CBC, CMP daily NG to low intermittent suction (2) Leukocytosis: Patient with some leukocytosis Blood cultures were drawn Go ahead and initiate Cipro and Flagyl, follow closely. (3) Atherosclerotic heart disease of [place] coronary artery with other forms of angina pectoris: Patient with history of nonobstructive coronary disease, demonstrated by angiogram March 2022. Echocardiogram was done in May 2023 demonstrating preserved EF. When able, reinitiate aspirin daily. Note that she is not on statin currently. She is also not on beta-frank. These could be considered in the future. (4) COPD (chronic obstructive pulmonary disease): Initiate budesonide twice daily. Initiate DuoNeb every 6 hours Plan Other medical problems as listed in past medical history Thank you for this consult Lovenox for DVT prophylaxis Consult Attestations 2 Medical Necessity Statement: As per primary Diagnoses Small bowel obstruction K56.609 Leukocytosis D72.829 Atherosclerotic heart disease of [place] coronary artery with other forms of angina pectoris I25.118 COPD (chronic obstructive pulmonary disease) J44.9 Time Spent (min) 47
[2023-07-16] MEDS: sodium chloride 0.9% 1,000 ML 150 ML IV ×3 (10:35→23:59)
[2023-07-16] MEDS: ipratropium-albuterol 3 mL Neb INHALATION (13:18)
--- NOTE | 2023-07-16 13:22 | P.HP_ITS ---
Providers/Chief Complaint 2 Admitting Physician: Calvin Caceres DO Primary Care Provider: Braden Owen NP Chief Complaint: abd pain History of Present Illness Radha Maguire is a 58 year old female who presented to the hospital with a 3- day history of abdominal pain. She reports that she has not had a bowel movement in 3 days and has not passed flatus in 24 hours. She has an extensive history of abdominal surgeries, including partial gastrectomy, colectomy, cholecystectomy, appendectomy and hysterectomy. She reports that she has had a small bowel obstruction in the past that was relieved with conservative management. She denies any nausea or vomiting. Denies any hematochezia and/or melena. A CT of the abdomen pelvis shows small bowel obstruction Review of Systems 2 General: Reports: 10 or more systems reviewed and unremarkable except in HPI and below Medications/Allergies Home Medications Medication Instructions Recorded Confirmed Last Taken Type tizanidine 2 mg tablet 2 mg PO Q6H PRN Spasms 10/12/19 07/16/23 Unknown History Cam Boot to the left #1 ea 12/25/21 07/16/23 Unknown Rx albuterol sulfate 90 mcg/actuation 2 puff inhalation Q4H PRN 03/20/22 07/16/23 Unknown History aerosol inhaler shortness of breath or wheezing xegbkbn-xgzifljmtemet-aapeizys 250 2 tab PO Q4H PRN Pain 07/16/23 07/16/23 Unknown History mg-250 mg-65 mg tablet (Excedrin Extra Strength) ferrous sulfate 325 mg (65 mg 325 mg PO QAM 07/16/23 07/16/23 Unknown History iron) tablet nitroglycerin 0.4 mg sublingual 0.4 mg sublingual Q5M PRN Chest 07/16/23 07/16/23 Unknown History tablet (Nitrostat) Pain omeprazole 40 mg capsule,delayed 40 mg PO DAILY PRN Heartburn 07/16/23 07/16/23 Unknown History release tiotropium bromide 2.5 2 inh inhalation DAILY 07/16/23 07/16/23 Unknown History mcg/actuation mist for inhalation (Spiriva Respimat) Allergies Allergy/AdvReac Type Severity Reaction Status Date / Time diphenhydramine Allergy Unknown Verified 07/16/23 07:28 [From Benadryl] hydromorphone [From Dilaudid] Allergy ADR-Vomitin Verified 07/16/23 07:28 g ibuprofen [From Motrin] Allergy ALGY-Anaphy Verified 07/16/23 07:28 laxis Penicillins Allergy ALGY-Anaphy Verified 07/16/23 07:28 laxis tramadol Allergy Unknown Verified 07/16/23 07:28 PFSH Acute 2 PFSH: Medical History Atherosclerotic heart disease of [place] coronary artery with other forms of angina pectoris GERD (gastroesophageal reflux disease) Benign essential hypertension with target blood pressure below 140/90 Bradycardia AV block, 2nd degree Recurrent vomiting HTN (hypertension) Nausea and vomiting Dyslipidemia Elevated blood pressure reading Unstable angina Chest pain Palpitations Chest pain Emphysema of lung Quit in 2019 Chronic migraine without aura, intractable, with status migrainosus Surgical History H/O colonoscopy History of surgery ULCERS AND PART OF STOMACH REMOVED History of colon resection History of hysterectomy History of appendectomy History of cholecystectomy Family History Mother CAD (coronary artery disease), Onset Age: 50 Cancer Lung disease Stroke Denies family history of Diabetes Clotting disorder Dementia Chronic kidney disease (CKD) Suicide Anesthesia complication Bleeding disorder Social History Smoking and tobacco/nicotine status: former use of tobacco/nicotine (3-4years ago) Alcohol intake: former Substance/Drug Use: never Vitals/I&O/Wt Last Vital Signs Temp 98.3 F 07/16/23 11:42 Pulse 97 07/16/23 11:42 Resp 18 07/16/23 11:42 BP 114/73 07/16/23 11:42 Pulse Ox 94 07/16/23 11:42 O2 Del Method Room Air 07/16/23 11:42 07/15/23 07/16/23 07/16/23 22:59 06:59 14:59 Intake Total 1000 / 1000 Balance 1000 / 1000 Weight last 48 hrs Weight 110 lb Weight 110 lb Physical Exam 2 Narrative: General : Patient is well developed , no acute distress, oriented x3 Head : Normal cephalic, a-traumatic. Ears : Pinnae and external canal are normal. Hearing is normal. Eyes : PERRLA, Sclera and injection are normal. No conjunctival discharge. Nose : Mucous membranes are without erythema. Throat : buccal mucosa is normal, gums are without significant recession or hypertrophy. Lungs : Equal chest rise bilaterally, no use of accessory muscles, trachea is midline. Cor : Rate and rhythm are normal. Abdomen : Soft, distended, diffusely tender no g/r/m Extremities : No edema, no cyanosis or clubbing, dorsalis pedis pulses are present bilaterally, non-tender to palpation of calves. Upper extremities are normal bilaterally. Back : non-tender to palpation, no CVA tenderness. Neuro : CN II - XII intact, Upper and lower extremities have equal and full strength Data 07/16/23 05:05 07/16/23 05:05 Micro: Microbiology 07/16/23 07:18 Blood Culture - Preliminary Blood SPECIMEN COLLECTED 07/16/23 07:06 Blood Culture - Preliminary Blood SPECIMEN COLLECTED A&P Assessment and plan (1) Small bowel obstruction: Plan IV fluids NPO/NGT to low intermittent wall suction Await return of bowel function Aggressive electrolyte replacement Conservative management for now. If she does not open up in the next few days we will have to consider diagnostic laparoscopy versus exploratory laparotomy. Appreciate hospitalist input Attestations 2 Medical Necessity Statement*: Patient requires at least 1 night in the hospital for diet management and nasogastric suctioning for small bowel obstruction Coding Level of Care Code 19087 Diagnoses Small bowel obstruction K56.609
[2023-07-16 13:29] LABS: Magnesium 1.9 mg/dL (1.7-2.3)
[2023-07-16] MEDS: enoxaparin 40 mg/0.4 mL Syringe SUBCUT (14:24)
[2023-07-16] MEDS: pantoprazole 40 mg SDV IVP (14:24)
[2023-07-16] MEDS: ciprofloxacin 400 MG/200 ML PREMIX 200 MG IV (14:25)
[2023-07-16] MEDS: morphine 4 mg/mL SDV 1 mL 2 MG IVP ×2 (15:58→20:42)
[2023-07-16] MEDS: metroNIDAZOLE IV 500 MG/100 ML PREMIX 100 MG IV ×2 (16:43→23:58)
--- NOTE | 2023-07-16 22:16 | PC.RESP ---
Kevin tx not given due to RT busy in the emergency room.
[2023-07-17] VITALS (17 sets, daily range): BP systolic 101–114; BP diastolic 66–77; PULSE 82–109; RESP 15–24; TEMP 36.6–37.4; O2SAT 94–97
[2023-07-17] MEDS: ciprofloxacin 400 MG/200 ML PREMIX 200 MG IV ×2 (01:27→13:00)
[2023-07-17] MEDS: pantoprazole 40 mg SDV IVP ×2 (01:31→12:52)
[2023-07-17] MEDS: morphine 4 mg/mL SDV 1 mL 2 MG IVP ×4 (01:50→17:39)
[2023-07-17] MEDS: ipratropium-albuterol 3 mL Neb INHALATION ×3 (01:56→13:47)
[2023-07-17] MEDS: metroNIDAZOLE IV 500 MG/100 ML PREMIX 100 MG IV ×3 (06:21→23:58)
[2023-07-17] MEDS: budesonide 0.5 mg/2 mL Neb INHALATION (07:29)
[2023-07-17] MEDS: sodium chloride 0.9% 1,000 ML 150 ML IV ×2 (08:49→18:46)
--- NOTE | 2023-07-17 08:53 | P.PN_ITS ---
Subjective 2 Subjective: Radha reports she feels better than yesterday. Abdomen is less distended. She has passed some air. No bowel movement yet. No vomiting with the NG. Medications: Reviewed: Yes Vitals/I&O/Wt Last Vital Signs Temp 98.3 F 07/17/23 08:06 Pulse 95 07/17/23 08:06 Resp 16 07/17/23 08:06 BP 101/66 07/17/23 08:06 Pulse Ox 94 07/17/23 08:06 O2 Del Method Room Air 07/17/23 08:06 07/16/23 07/17/23 07/17/23 22:59 06:59 14:59 Intake Total 1225 / 2225 2072.5 / 4297.5 100 / 100 Output Total 325 / 325 Balance 1225 / 2225 1747.5 / 3972.5 100 / 100 Weight last 48 hrs Weight 51.165 kg Weight 49.895 kg Weight 49.895 kg Physical Exam 2 Narrative: General exam demonstrates a white female, much more comfortable than yesterday Neck is supple no lymphadenopathy thyromegaly Cardiovascular regular rate and rhythm, no murmur Lungs clear Abdomen slight tenderness. Few bowel sounds are noted. Extremities no cyanosis clubbing or edema Data 07/16/23 05:05 07/16/23 05:05 Micro: Microbiology 07/16/23 07:18 Blood Culture - Preliminary Blood NEGATIVE TO DATE 07/16/23 07:06 Blood Culture - Preliminary Blood NEGATIVE TO DATE A&P Assessment and plan (1) Small bowel obstruction: Patient presents with small bowel obstruction Surgery managing Symptomatically improved Morphine as needed for pain Zofran for nausea Continue IV fluids for hydration CBC, CMP daily. Awaiting labs today NG to low intermittent suction (2) Leukocytosis: Patient with some leukocytosis on admission Awaiting labs today Blood cultures were drawn Continue Cipro and Flagyl, follow closely. (3) Atherosclerotic heart disease of [place] coronary artery with other forms of angina pectoris: Patient with history of nonobstructive coronary disease, demonstrated by angiogram March 2022. Echocardiogram was done in May 2023 demonstrating preserved EF. When able, reinitiate aspirin daily. Note that she is not on statin currently. She is also not on beta-frank. These could be considered in the future. (4) COPD (chronic obstructive pulmonary disease): Continue budesonide twice daily. Continue DuoNeb every 6 hours Plan Other medical problems as listed in past medical history Thank you for this consult Lovenox for DVT prophylaxis Attestations 2 Medical Necessity Statement*: Needs continued hospitalization, for small bowel obstruction not yet resolved Coding Level of Care Code Acute Code for Chg Fwd Diagnoses Small bowel obstruction K56.609 Leukocytosis D72.829 Atherosclerotic heart disease of [place] coronary artery with other forms of angina pectoris I25.118 COPD (chronic obstructive pulmonary disease) J44.9
--- NOTE | 2023-07-17 09:05 | PC.CHAP ---
Pastoral Care Encounter/Spiritual Assessment Type of Contact [] Declined eeo officer visit [] Patient/Family/Request visit [] Outpatient visit [] Follow-up visit [] Physician referral [] Code/Alert [x] Routine visit [] Staff referral [] Actively dying [] Patient sleeping [] Family support [] [] Out of room [] Palliative care [] [] Receiving care in room [] Pre-surgical visit [] Trauma [] Long length of stay [] ICU visit [] Other: Relational/Emotional Strength [x] Patient feels connected with others/family/visitors/staff [] Distress [] Loneliness/isolation [] Abandonment Spirituality of Patient [x] Person of Esther [] Attends Zoroastrianism of their Esther [x] Believes in Prayer [] Reads Bible or Lutheran materials [] There are Spiritual issues to be addressed Casting Director Interventions [x] Prayer [x] Active listening [] Non-anxious presence [x] Spiritual/emotional support [] Crisis/trauma care [] Spiritual counseling [] Bereavement support [] Provided bereavement packet [] Provided Bible/devotional materials [] Provided toy/stuffed animal, coloring book to patient or family member [] Provided Communion [] Anointing/[place] [] Salvation [x] Completed spiritual assessment [] Other: Impact on Illness or Injury [] Angry [] Fearful [] Anxious [] Often cries [] Exhaustion [] Unable to work [] Unable to attend adventist [] Unable to walk/stand [] Unable to read [] Unable to drive [] Unable to eat/drink [] Unable to sleep [] Unable to be with family [] Patient intubated [] Other: Summary Time spent with patient 5 min
[2023-07-17 10:47] LABS: Basophils % 0.2 %; Eosinophils # 0.1 10^3/uL (0.0-0.8); Eosinophils % 1.1 %; Lymphocytes # 0.9 10^3/uL (0.8-4.8); Lymphocytes % 20.9 %; Mean Corpuscular Hemoglobin 24.5 pg (27-33); Mean Corpuscular Volume 81.7 fl (85-98); Mean Platelet Volume 9.4 fL (7.4-10.4); Monocytes # 0.5 10^3/uL (0.2-0.9); Monocytes % 11.5 %; Neutrophils # 2.93 10^3/uL (1.8-7.7); Neutrophils % 66.1 %; Nucleated Red Blood Cells % 0 %; Platelet Count 197 10^3/cmm (157-399); Red Blood Count 3.55 10^6/uL (3.85-5.65); Red Cell Distribution Width 14.6 % (12.1-15.1); White Blood Count 4.44 10^3/uL (3.29-11.43)
[2023-07-17 11:12] LABS: Alanine Aminotransferase 9 U/L (0-33); Albumin Level 3.4 g/dL (3.5-5.2); Alkaline Phosphatase 62 U/L (35-105); Anion Gap 11.2 (5-19); Aspartate Amino Transferase 17 U/L (0-32); Blood Urea Nitrogen 5 mg/dL (6-20); Calcium 7.5 mg/dL (8.5-10.5); Carbon Dioxide 23 mmol/L (22-29); Chloride 108 mmol/L (98-107); Globulin 1.9 g/dL (1.3-4.6); Glomerular Filtration Rate 102.7 mL/min (90-130); Glucose 108 mg/dL (65-115); Magnesium 1.9 mg/dL (1.7-2.3); Osmolality Calculated 286 mOsm/kg (285-295); Potassium 3.2 mmol/L (3.5-5.1); Sodium 139 mmol/L (136-145); Total Bilirubin 0.2 mg/dL (0.15-1.2); Total Protein 5.3 g/dL (6.6-8.7)
--- NOTE | 2023-07-17 12:06 | P.PN_ITS ---
Subjective 2 Subjective: 58-year-old female with multiple abdomin al surgeries who presented with a small bowel obstruction. I have been requested to evaluate this patient by my colleague Dr. Caceres as he will be out of town for the next week. In the last 24 hours patient has been doing better, abdominal distention has improved, patient has passed significant amount of gas, no bowel movement yet. Vitals/I&O/Wt Last Vital Signs Temp 98.3 F 07/17/23 08:06 Pulse 95 07/17/23 08:06 Resp 18 07/17/23 10:50 BP 101/66 07/17/23 08:06 Pulse Ox 94 07/17/23 08:06 O2 Del Method Room Air 07/17/23 08:06 07/16/23 07/17/23 07/17/23 22:59 06:59 14:59 Intake Total 1225 / 2225 2072.5 / 4297.5 100 / 100 Output Total 325 / 325 Balance 1225 / 2225 1747.5 / 3972.5 100 / 100 Weight last 48 hrs Weight 112 lb 12.8 oz Weight 110 lb Weight 110 lb Physical Exam 2 GI: OTHER: Abdominal exam is benign, there is minimal distention, minimal tenderness to palpation, no concerning signs. Data 07/17/23 10:27 07/17/23 10:27 Micro: Microbiology 07/16/23 07:18 Blood Culture - Preliminary Blood NEGATIVE TO DATE 07/16/23 07:06 Blood Culture - Preliminary Blood NEGATIVE TO DATE A&P Assessment and plan (1) Status post colon resection: (2) Small bowel obstruction: Plan After complete history physical examination and review of all available clinical data the following is my assessment. Is a patient with significant surgical history who presented with SBO. SBO appears to be chronic in nature after review of imaging that shows fecalization in the small bowel. I think nonoperative management appears to be working fine for her. Will decompress the stomach for another 24 hours and in the morning I will try a Gastrografin challenge. After the patient has a bowel movement we can start her liquid diet I will be inclined to discharge patient in either liquids or pur?ed diet to allow for proper recovery of bowel function. Medicine team recommendations are appreciated. Of note laboratory workup today shows normalization of white blood cell count. Attestations 2 Medical Necessity Statement*: Patient will require 24 to 48 hours more of hospital stay for small bowel obstruction. Coding Level of Care Code Acute Code for Chg Fwd Diagnoses Status post colon resection Z90.49 Small bowel obstruction K56.609
[2023-07-17] MEDS: lidocaine 1% 5 ML in potassium chloride premix 100 ML 26.25 ML IV (12:35)
[2023-07-17] MEDS: enoxaparin 40 mg/0.4 mL Syringe SUBCUT (12:43)
[2023-07-17] MEDS: ondansetron 2 mg/ML SDV 2 mL 4 MG IVP (17:38)
[2023-07-18] VITALS (20 sets, daily range): BP systolic 107–139; BP diastolic 59–73; PULSE 54–107; RESP 15–20; TEMP 36.5–37.3; O2SAT 92–100
[2023-07-18] MEDS: ondansetron 2 mg/ML SDV 2 mL 4 MG IVP ×4 (00:20→20:47)
[2023-07-18] MEDS: morphine 4 mg/mL SDV 1 mL 2 MG IVP ×5 (00:26→20:47)
[2023-07-18] MEDS: pantoprazole 40 mg SDV IVP ×2 (00:47→12:45)
[2023-07-18] MEDS: phenol oral Spray 177 mL 3 SPRAY MUCOUS MEM (02:17)
[2023-07-18] MEDS: ciprofloxacin 400 MG/200 ML PREMIX 200 MG IV ×2 (02:17→13:01)
[2023-07-18] MEDS: metroNIDAZOLE IV 500 MG/100 ML PREMIX 100 MG IV ×3 (06:00→22:43)
--- NOTE | 2023-07-18 06:09 | XRR_ITS ---
PROCEDURE INFORMATION: Exam: XR Chest Exam date and time: 07/18/2023 7:49 AM Age: 58 years old Clinical indication: Device placement; Ng tube; Additional info: Ngt placement verification d/t patient nausea/vomiting TECHNIQUE: Imaging protocol: Radiologic exam of the chest. Views: 1 view. COMPARISON: CR XR chest 1V portable [id number] 07/16/2023 8:16 AM FINDINGS: Tubes, catheters and devices: NG tube enters from above. It terminates in the stomach with the side hole just below the EG junction. Lungs: Unremarkable. No consolidation. Pleural spaces: Unremarkable. No pleural effusion. No pneumothorax. Heart/Mediastinum: Unremarkable. No cardiomegaly. Bones/joints: Unremarkable. Soft tissues: Upper abdominal surgical clips noted. XR/XR chest 1V portable [id number] IMPRESSION: No acute cardiopulmonary disease.
[2023-07-18 06:42] LABS: Basophils % 0.2 %; Eosinophils # 0.1 10^3/uL (0.0-0.8); Lymphocytes # 0.9 10^3/uL (0.8-4.8); Lymphocytes % 17.4 %; Mean Corpuscular HGB Conc 30.6 g/dL (30-55); Mean Corpuscular Volume 81.6 fl (85-98); Mean Platelet Volume 9.6 fL (7.4-10.4); Monocytes # 0.4 10^3/uL (0.2-0.9); Monocytes % 7.5 %; Neutrophils # 3.81 10^3/uL (1.8-7.7); Neutrophils % 73.5 %; Nucleated Red Blood Cells % 0 %; Platelet Count 203 10^3/cmm (157-399); Red Blood Count 3.92 10^6/uL (3.85-5.65); Red Cell Distribution Width 14.6 % (12.1-15.1); White Blood Count 5.18 10^3/uL (3.29-11.43)
[2023-07-18 07:05] LABS: Alanine Aminotransferase 8 U/L (0-33); Albumin Level 3.8 g/dL (3.5-5.2); Alkaline Phosphatase 70 U/L (35-105); Anion Gap 16.9 (5-19); Aspartate Amino Transferase 17 U/L (0-32); Blood Urea Nitrogen 3 mg/dL (6-20); Calcium 8.2 mg/dL (8.5-10.5); Carbon Dioxide 22 mmol/L (22-29); Chloride 105 mmol/L (98-107); Globulin 2.3 g/dL (1.3-4.6); Glomerular Filtration Rate 126.7 mL/min (90-130); Glucose 118 mg/dL (65-115); Osmolality Calculated 288 mOsm/kg (285-295); Potassium 3.9 mmol/L (3.5-5.1); Sodium 140 mmol/L (136-145); Total Bilirubin 0.3 mg/dL (0.15-1.2); Total Protein 6.1 g/dL (6.6-8.7)
[2023-07-18] MEDS: sodium chloride 0.9% 1,000 ML 150 ML IV ×2 (08:52→17:10)
--- NOTE | 2023-07-18 09:35 | P.PN_ITS ---
Subjective 2 Subjective: Excellent progress of a small bowel obstruction. Patient states that her pain has improved significantly and she has been passing significant amount of gas. No bowel movement yet. Vitals/I&O/Wt Last Vital Signs Temp 98.2 F 07/18/23 08:19 Pulse 84 07/18/23 08:19 Resp 18 07/18/23 08:19 BP 107/62 07/18/23 08:19 Pulse Ox 92 07/18/23 08:19 O2 Del Method Room Air 07/18/23 08:19 07/17/23 07/18/23 07/18/23 22:59 06:59 14:59 Intake Total 1100 / 1400 1284.5 / 2684.5 220.5 / 220.5 Output Total 775 / 925 300 / 1225 Balance 325 / 475 984.5 / 1459.5 220.5 / 220.5 Weight last 48 hrs Weight 118 lb 4 oz Weight 112 lb 12.8 oz Weight 110 lb Physical Exam 2 HENMT: OTHER: NG tube in place, bilious output. GI: OTHER: Abdominal exam is benign, abdomen is soft, minimally tender to palpation, nondistended. Data 07/18/23 06:15 07/18/23 06:15 Micro: Microbiology 07/16/23 07:18 Blood Culture - Preliminary Blood NEGATIVE TO DATE 07/16/23 07:06 Blood Culture - Preliminary Blood NEGATIVE TO DATE A&P Assessment and plan (1) Small bowel obstruction: Plan Patient with very good progress of a small bowel obstruction, we will proceed with a Gastrografin trial today if I see progression of the contrast in the small bowel we will proceed to remove NG tube and advance the patient to clear liquid diet. Attestations 2 Medical Necessity Statement*: Patient will require 24 to 48 hours more of hospital stay for management of SBO Coding Level of Care Code Acute Code for Chg Fwd Diagnoses Small bowel obstruction K56.609
--- NOTE | 2023-07-18 11:09 | XRR_ITS ---
PROCEDURE INFORMATION: Exam: XR Abdomen Exam date and time: 07/18/2023 12:33 PM Age: 58 years old Clinical indication: Screening exam; Patient HX: Sbo; Gastrograffin study through ng; 3hr film TECHNIQUE: Imaging protocol: Radiologic exam of the abdomen. Views: Frontal supine view of the abdomen. 1 View. COMPARISON: CT abdomen pelvis w con* [id number] 07/16/2023 6:05 AM FINDINGS: Tubes, catheters and devices: Tubal ligation clips are seen in the pelvis. Gastrointestinal tract: There is contrast throughout the colon. Minimal contrast remains in small bowel. No visibly dilated small bowel. Intraperitoneal space: No gross free air. Surgical clips are seen in the upper abdomen. Bones/joints: Bones are unremarkable. XR/XR abdomen 1V* [id number] IMPRESSION: Contrast throughout the colon indicates patency of small bowel. No visibly dilated small bowel.
[2023-07-18] MEDS: enoxaparin 40 mg/0.4 mL Syringe SUBCUT (13:01)
--- NOTE | 2023-07-18 13:24 | PC.NURSE ---
pt's NG tube pulled at 1:11pm, pt tolerated well.
--- NOTE | 2023-07-18 13:26 | PM.MISC ---
Miscellaneous Note Purpose of Documentation: Update of patient care Note: After the ministration of Gastrografin this morning, the patient had 2 very large lower bowel movements. An x-ray done 4 hours after administration show evidence of contrast material in the colon and resolution of the small bowel obstruction. NG tube was removed and patient was advanced to full liquids. She may be discharged tomorrow.
[2023-07-18] MEDS: ipratropium-albuterol 3 mL Neb INHALATION ×2 (13:37→19:33)
[2023-07-18] MEDS: budesonide 0.5 mg/2 mL Neb INHALATION (19:32)
--- NOTE | 2023-07-18 22:44 | P.PN_ITS ---
Subjective 2 Subjective: The patient had at least 3 large bowel movements with resolution of bowel obstruction, so NGT was removed. She endorses abdominal soreness, but she denies abdominal pain that she had when she presented. She endorses some abdominal sorteness. She denies n/v, F/c, dizzy, abdominal pain She is on a liquid diet. She hopes to go in the AM. Vitals/I&O/Wt Last Vital Signs Temp 98.3 F 07/18/23 19:43 Pulse 87 07/18/23 19:44 Resp 16 07/18/23 20:47 BP 133/72 07/18/23 19:43 Pulse Ox 100 07/18/23 19:43 O2 Del Method Room Air 07/18/23 19:43 07/18/23 07/18/23 07/18/23 06:59 14:59 22:59 Intake Total 1284.5 / 2684.5 1055.500 / 1055.500 465.0 / 1520.500 Output Total 300 / 1225 Balance 984.5 / 1459.5 1055.500 / 1055.500 465.0 / 1520.500 Weight last 48 hrs Weight 53.637 kg Weight 51.165 kg Physical Exam 2 Const: GENERAL APPEARANCE: cooperative and comfortable O RIENTATION/CONSCIOUSNESS: Yes awake, Yes oriented to person, Yes oriented to place and Yes oriented to time HENMT: COMMON NORMALS: normocephalic, atraumatic and external ears normal H EAD & SCALP: normocephalic and atraumatic EXTERNAL EAR: Yes external ears normal MOUTH: Normal oral and palatal mucosa present THROAT: posterior oropharynx normal Eye: COMMON NORMALS: Equal, round and reactive pupils present and conjunctivae normal CONJUNCTIVA: Yes conjunctivae normal PUPIL: Yes Equal, round and reactive pupils present EOM: No EOM abnormal Neck/C-Spine: COMMON NORMALS: Thyroid normal GENERAL: Yes normal visual inspection and Yes trachea midline THYROID: Thyroid normal CAROTIDS: No bruit Lymph: LYMPHATIC: No lymphadenopathy Resp: COMMON NORMALS: clear to auscultation bilaterally AUSCULTATION: clear to auscultation bilaterally, no crackles, no rales and no wheezes Cardio: COMMON NORMALS: regular rate, regular rhythm, S1 normal heart sound present and S2 normal heart sound present RATE: regular rate RHYTHM: r egular rhythm HEART SOUNDS: S1 normal heart sound present and S2 normal heart sound present BRUITS: no carotid bruits PERIPHERAL PULSES: radial pulses present and popliteal pulses present GI: OTHER: Bowel sounds positive, nontender, nondistended, no guarding, no rigidity, no rebound tenderness. Extremity: GENERAL: No clubbing, No cyanosis and No edema Neuro: SENSORIUM/ORIENTATION: Yes oriented to person, Yes oriented to place and Yes oriented to time CRANIAL NERVES: Yes CN normal except as noted S PEECH: speech normal MOTOR EXAM: 5/5 motor strength present throughout and Normal motor muscle tone present throughout Psych: COMMON NORMALS: Normal thought process present and speech normal A PPEARANCE: Yes grossly normal ATTITUDE: Yes calm and Yes engaged SPEECH: Y es normal speech MOOD & AFFECT: Yes euthymic mood THOUGHT PROCESS: Normal thought process present THOUGHT CONTENT: Yes Normal thought content present ATTENTION/CONCENTRATION: Yes attention grossly intact Skin: COMMON NORMALS: no rashes or lesions noted GENERAL SKIN EXAM: no rashes or lesions noted Data 07/19/23 06:05 07/19/23 06:05 A&P Assessment and plan (1) Small bowel obstruction: Resolved. (2) Leukocytosis: resolving. Ok to d/c' Cipro & Flagyl at the time of discharge. (3) Atherosclerotic heart disease of [place] coronary artery with other forms of angina pectoris: Patient with history of nonobstructive coronary disease, demonstrated by angiogram March 2022. Echocardiogram was done in May 2023 demonstrating preserved EF. When able, reinitiate aspirin daily. Note that she is not on statin currently. She is also not on beta-frank. These could be considered in the future. (4) COPD (chronic obstructive pulmonary disease): Continue budesonide twice daily. Continue DuoNeb every 6 hours Plan Other medical problems as listed in past medical history Thank you for this consult Lovenox for DVT prophylaxis Attestations 2 Medical Necessity Statement*: Patient remains hospitalized for small bowel obstruction Coding Level of Care Code Acute Code for g Fwd Diagnoses Small bowel obstruction K56.609 Leukocytosis D72.829 Atherosclerotic heart disease of [place] coronary artery with other forms of angina pectoris I25.118 COPD (chronic obstructive pulmonary disease) J44.9
[2023-07-19] VITALS (7 sets, daily range): BP systolic 115–142; BP diastolic 70–75; PULSE 85–112; RESP 14–17; TEMP 36.8–37; O2SAT 95–97
[2023-07-19] MEDS: ciprofloxacin 400 MG/200 ML PREMIX 100 MG IV (00:46)
[2023-07-19] MEDS: pantoprazole 40 mg SDV IVP (00:46)
[2023-07-19] MEDS: sodium chloride 0.9% 1,000 ML 150 ML IV ×2 (00:48→09:17)
[2023-07-19] MEDS: morphine 4 mg/mL SDV 1 mL 2 MG IVP ×2 (02:58→09:22)
[2023-07-19] MEDS: ondansetron 2 mg/ML SDV 2 mL 4 MG IVP ×2 (02:58→09:21)
[2023-07-19] MEDS: metroNIDAZOLE IV 500 MG/100 ML PREMIX 100 MG IV (06:11)
[2023-07-19 06:18] LABS: Basophils % 0.2 %; Eosinophils # 0.2 10^3/uL (0.0-0.8); Eosinophils % 5.2 %; Hematocrit 28.6 % (36-47); Lymphocytes # 1.3 10^3/uL (0.8-4.8); Lymphocytes % 30.2 %; Mean Corpuscular HGB Conc 30.8 g/dL (30-55); Mean Corpuscular Hemoglobin 24.7 pg (27-33); Mean Corpuscular Volume 80.3 fl (85-98); Mean Platelet Volume 9.7 fL (7.4-10.4); Monocytes # 0.4 10^3/uL (0.2-0.9); Monocytes % 10.5 %; Neutrophils # 2.25 10^3/uL (1.8-7.7); Neutrophils % 53.7 %; Nucleated Red Blood Cells % 0 %; Platelet Count 173 10^3/cmm (157-399); Red Blood Count 3.56 10^6/uL (3.85-5.65); Red Cell Distribution Width 14.5 % (12.1-15.1)
[2023-07-19 06:59] LABS: Alanine Aminotransferase 8 U/L (0-33); Albumin Level 3.4 g/dL (3.5-5.2); Alkaline Phosphatase 60 U/L (35-105); Anion Gap 15.1 (5-19); Aspartate Amino Transferase 16 U/L (0-32); Blood Urea Nitrogen 2 mg/dL (6-20); Calcium 8.1 mg/dL (8.5-10.5); Carbon Dioxide 22 mmol/L (22-29); Chloride 103 mmol/L (98-107); Globulin 2.1 g/dL (1.3-4.6); Glomerular Filtration Rate 126.7 mL/min (90-130); Glucose 92 mg/dL (65-115); Magnesium 1.6 mg/dL (1.7-2.3); Osmolality Calculated 280 mOsm/kg (285-295); Phosphorus 2.3 mg/dL (2.5-4.5); Potassium 3.1 mmol/L (3.5-5.1); Sodium 137 mmol/L (136-145); Total Bilirubin 0.2 mg/dL (0.15-1.2); Total Protein 5.5 g/dL (6.6-8.7)
[2023-07-19] MEDS: polyethylene glycol 3350 Pkt 17 gm PO (09:17)
--- NOTE | 2023-07-19 10:09 | PM.DCS ---
Discharge Providers Date of Admission: 07/16/23 07:29 Date of Discharge: July 19, 2023 Attending Provider at Admission: Calvin Caceres DO Attending Provider at Discharge: Yovani Pruitt MD Primary Care Provider: Braden Owen NP Diagnoses at Discharge Discharge Diagnosis (1) Small bowel obstruction: Details from hospital stay: 58-year-old female with multiple abdominal operations who presented to the hospital with symptoms concerning for chronic small bowel obstruction, she was admitted by my colleague Dr. Caceres and treated conservatively, I was asked to follow-up the patient after my colleague without of town. In the last 24 hours small bowel obstruction, is completely resolved, Gastrografin trial showed contrast in the colon and patient had had several large bowel movements. Patient is tolerating diet, abdominal exam is pretty benign. Status: Acute Reason for Visit Reason for Visit: abd pain Physical Exam Narrative: General : Patient is well developed , no acute distress, oriented x3 Head : Normal cephalic, a-traumatic. Nose : Mucous membranes are without erythema. Lungs : Equal chest rise bilaterally, no use of accessory muscles, trachea is midline. CV : Rate and rhythm are normal. Abdomen : Soft, ND, minimal tenderness to palpation Extremities : No edema. Upper extremities are normal bilaterally. Back : non-tender to palpation, no CVA tenderness. Discharge Data Studies Completed and Pending Completed Studies During Hospitalization Category Date Time Status CT abdomen pelvis w con* [id number] Stat Cat Scan 07/16/23 04:53 Completed CXRP [XR chest 1V portable [id number]] Stat Exams 07/18/23 06:09 Completed XR abdomen 1V* [id number] Stat Exams 07/16/23 04:27 Completed XR abdomen 1V* [id number] Stat Exams 07/18/23 11:09 Completed XR chest 1V portable [id number] Routine Exams 07/16/23 08:02 Completed Pending at discharge Category Date Time Status Blood Culture Stat Lab 07/16/23 07:18 Results Radiology Impressions Abdomen/Pelvis CT 07/16/23 04:53 IMPRESSION: Small bowel obstruction. ADDENDUM: 07/16/23 0649 THIS REPORT CONTAINS FINDINGS THAT MAY BE CRITICAL TO PATIENT CARE. The findings were verbally communicated via telephone conference with Dr. 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 The findings were acknowledged and understood. Chest X-Ray 07/18/23 06:09 IMPRESSION: No acute cardiopulmonary disease. Abdomen X-Ray 07/18/23 11:09 IMPRESSION: Contrast throughout the colon indicates patency of small bowel. No visibly dilated small bowel. Laboratory Results WBC 4.20 10^3/uL (3.29-11.43) 07/19/23 06:05 Corrected WBC Cancelled 07/16/23 04:06 RBC 3.56 10^6/uL (3.85-5.65) L 07/19/23 06:05 Hgb 8.80 g/dL (11.27-16.99) L 07/19/23 06:05 Hct 28.6 % (36-47) L 07/19/23 06:05 MCV 80.3 fl (85-98) L 07/19/23 06:05 MCH 24.7 pg (27-33) L 07/19/23 06:05 MCHC 30.8 g/dL (30-55) 07/19/23 06:05 RDW 14.5 % (12.1-15.1) 07/19/23 06:05 Plt Count 173 10^3/cmm (157-399) 07/19/23 06:05 MPV 9.7 fL (7.4-10.4) 07/19/23 06:05 Gran % Cancelled 07/16/23 04:06 Neut % (Auto) 53.7 % 07/19/23 06:05 Lymph % (Auto) 30.2 % 07/19/23 06:05 [place] % (Auto) 10.5 % 07/19/23 06:05 Eos % (Auto) 5.2 % 07/19/23 06:05 Baso % (Auto) 0.2 % 07/19/23 06:05 Neut # (Auto) 2.25 10^3/uL (1.8-7.7) 07/19/23 06:05 Lymph # (Auto) 1.3 10^3/uL (0.8-4.8) 07/19/23 06:05 [place] # (Auto) 0.4 10^3/uL (0.2-0.9) 07/19/23 06:05 Eos # (Auto) 0.2 10^3/uL (0.0-0.8) 07/19/23 06:05 Baso # (Auto) 0.0 10^3/uL (0.0-0.1) 07/19/23 06:05 Absolute Gran (auto) Cancelled 07/16/23 04:06 Nucleated RBC % (auto) 0 % 07/19/23 06:05 Nucleated RBCs # 0.0 /100WBC 07/19/23 06:05 Sodium 137 mmol/L (136-145) 07/19/23 06:05 Potassium 3.1 mmol/L (3.5-5.1) L 07/19/23 06:05 Chloride 103 mmol/L (98-107) 07/19/23 06:05 Carbon Dioxide 22 mmol/L (22-29) 07/19/23 06:05 Anion Gap 15.1 (5-19) 07/19/23 06:05 BUN 2 mg/dL (6-20) L 07/19/23 06:05 Creatinine 0.5 mg/dL (0.5-0.9) 07/19/23 06:05 GFR Calculation 126.7 mL/min (90-130) 07/19/23 06:05 Glucose 92 mg/dL (65-115) 07/19/23 06:05 Calculated Osmolality 280 mOsm/kg (285-295) L 07/19/23 06:05 Lactic Acid 1.3 mmol/L (0.5-2.2) 07/16/23 07:06 Calcium 8.1 mg/dL (8.5-10.5) L 07/19/23 06:05 Phosphorus 2.3 mg/dL (2.5-4.5) L 07/19/23 06:05 Magnesium 1.6 mg/dL (1.7-2.3) L 07/19/23 06:05 Total Bilirubin 0.2 mg/dL (0.15-1.2) 07/19/23 06:05 AST 16 U/L (0-32) 07/19/23 06:05 ALT 8 U/L (0-33) 07/19/23 06:05 Alkaline Phosphatase 60 U/L (35-105) 07/19/23 06:05 Total Protein 5.5 g/dL (6.6-8.7) L 07/19/23 06:05 Albumin 3.4 g/dL (3.5-5.2) L 07/19/23 06:05 Globulin 2.1 g/dL (1.3-4.6) 07/19/23 06:05 Lipase 14 U/L (13-60) 07/16/23 05:05 TSH 4.60 uIU/mL (0.27-4.20) H 07/16/23 05:05 Urine Color Yellow (Yellow) 07/16/23 06:50 Urine Appearance Clear (CLEAR) 07/16/23 06:50 Urine pH 5 (5-7) 07/16/23 06:50 Ur Specific [place] 1.015 (1.005-1.030) 07/16/23 06:50 Urine Protein Neg (Negative) 07/16/23 06:50 Urine Glucose (UA) Norm (Normal) 07/16/23 06:50 Urine Ketones Negative (Negative) 07/16/23 06:50 Urine Blood Neg (Negative) 07/16/23 06:50 Urine Nitrate Negative (Negative) 07/16/23 06:50 Urine Bilirubin 1+ (Negative) H 07/16/23 06:50 Urine Urobilinogen Neg mg/dL (Negative) 07/16/23 06:50 Ur Leukocyte Esterase Negative (Negative) 07/16/23 06:50 Vitals Last Vital Signs Temp 98.2 F 07/19/23 08:00 Pulse 112 H 07/19/23 08:43 Resp 16 07/19/23 08:43 BP 115/73 07/19/23 08:00 Pulse Ox 97 07/19/23 08:43 O2 Del Method Room Air 07/19/23 08:43 Discharge Plan Discharge Patient Disposition: Home Condition: Stable Prescriptions: New docusate sodium 100 mg capsule 100 mg PO BID Qty: 60 0RF polyethylene glycol 3350 [Miralax] 17 gram powder in packet 17 g PO DAILY 30 Days Qty: 30 0RF Continued (DME) [place] to the left See Rx Instructions .Route .MEDSUPPLY Qty: 1 0RF Rx Instructions: As directed tizanidine 2 mg tablet 2 mg PO Q6H PRN (Reason: Spasms) albuterol sulfate 90 mcg/actuation HFA aerosol inhaler 2 puff inhalation Q4H PRN (Reason: shortness of breath or wheezing) omeprazole 40 mg capsule,delayed release(DR/EC) 40 mg PO DAILY PRN (Reason: Heartburn) ferrous sulfate 325 mg (65 mg iron) tablet 325 mg PO QAM Nitrostat 0.4 mg Tablet, Sublingual 0.4 mg SUBLINGUAL Q5M PRN (Reason: Chest Pain) Rx Instructions: do not exceed 3 doses per episode Excedrin Extra Strength 250-250-65 mg Tablet 2 tab PO Q4H PRN (Reason: Pain) Spiriva Respimat 2.5 mcg/actuation mist 2 inh INHALATION DAILY Discharge Orders: Discharge Order (Routine); Ordered 07/19/23 Ordered By: Yovani Pruitt Referrals: Braden Owen NP [Primary Care Provider] - Yovani Pruitt MD [Physician] - (2 weeks) Discharge Diet: Advance as tolerated Discharge Activity: Resume usual activity Patient Instructions: Opioid Safety Activity Restrictions/Additional Instructions: Please walk as much as possible to improve your recovery, continue soft diet and stool softeners, you can advance your diet as tolerated. Discharge Attestations Time Spent in Discharge Care*: less than 30 min Quality Metrics Clinical Quality Measures [ No reported AMI, CVA or VTE this stay] Coding Level of Care Code Acute Code for Chg Fwd Diagnoses Small bowel obstruction K56.609
--- NOTE | 2023-07-19 13:13 | PC.NURSE ---
This nurse is working to set up a medicaid ride for patient. MTM is being called, current time is 1314. Trip has been set up and the number is [phone].
[2023-07-19] MEDS: enoxaparin 40 mg/0.4 mL Syringe SUBCUT (14:19)
[2023-07-19] MEDS: potassium chloride ER 20 mEq Tablet 40 MEQ PO (14:19)
== END 2023-07-19 15:00 | disposition home or self-care (01) | DRG 390 ==
LOC: ER 05:55 → MEDSURG 07:29
PROVIDERS: Internal Medicine; Admitting Provider Surgery; Emergency Provider Family Medicine; PCP Nurse Practitioner Family; Visit Provider Surgery
DX: K56.609 Unspecified intestinal obstruction, unspecified as to partial versus complete obstruction (principal); I25.118 Atherosclerotic heart disease of native coronary artery with other forms of angina pectoris; E78.5 Hyperlipidemia, unspecified; J43.9 Emphysema, unspecified; K21.9 Gastro-esophageal reflux disease without esophagitis; D72.829 Elevated white blood cell count, unspecified; G43.709 Chronic migraine without aura, not intractable, without status migrainosus; I44.1 Atrioventricular block, second degree
CPT/HCPCS: 36415; 71045; 74018; 74177; 80053; 81003; 83605; 83690; 83735; 84100; 84443; 85025; 87040; 93005; 94640; 96372; 96374; 96375; 99285; C9113; J0744; J1650; J2060; J2270; J2405; J2550; J3480; J3490; J7030; J7626; Q9967

== ENCOUNTER → 2024-02-09 10:52 | Outpatient (BNVA) | payer MEDICAID, SELFPAY | PROVIDERS: PCP Nurse Practitioner Family; Visit Provider Internal Medicine Cardiovascular Disease | DX: R07.9 Chest pain, unspecified (principal); Z79.01 Long term (current) use of anticoagulants; R06.02 Shortness of breath; R00.0 Tachycardia, unspecified; R03.0 Elevated blood-pressure reading, without diagnosis of hypertension; I44.1 Atrioventricular block, second degree | CPT/HCPCS: 36415; 80048; 83880; 85025; 93005; 99214 ==

== ENCOUNTER 2024-03-04 19:20 | Observation (INO) | payer MEDICAID, SELFPAY ==
[2024-03-04] VITALS (9 sets, daily range): BP systolic 111–152; BP diastolic 68–97; PULSE 88–115; RESP 16–28; TEMP 36.6; O2SAT 98–100; BMI 17.7
--- NOTE | 2024-03-04 19:35 | ECG_ITS ---
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 Measurements Intervals Gravity Rate: 112 P: 70 KS: 119 QRS: 75 QRSD: 86 T: 66 QT: 322 QTc: 441 Interpretive Statements SINUS TACHYCARDIA WITH SHORT [place] INTERVAL INDETERMINATE AXIS POSSIBLE RIGHT VENTRICULAR CONDUCTION DELAY [RSR (QR) IN V1/V2] MODERATE ST DEPRESSION [0.05+ mV ST DEPRESSION] Compared to ECG 02/09/2024 10:55:12 Short KS interval now present Indeterminate axis now present ST (T wave) deviation now present Sinus rhythm no longer present Electronically Signed On 03-05-2024 6:59:49 CDT by Shar Lou M.D. [email or web address]
--- NOTE | 2024-03-04 19:37 | XRR_ITS ---
PROCEDURE INFORMATION: Exam: XR Chest Exam date and time: 03/04/2024 7:41 PM Age: 59 years old Clinical indication: Chest pressure; Patient HX: Mediastinal chest pain TECHNIQUE: Imaging protocol: Radiologic exam of the chest. Views: 1 view. COMPARISON: CR XR chest 1V portable [id number] 07/18/2023 7:49 AM FINDINGS: Lungs: Unremarkable. No consolidation. Pleural spaces: Unremarkable. No pleural effusion. No pneumothorax. Heart/Mediastinum: Unremarkable. No cardiomegaly. Bones/joints: Unremarkable. XR/XR chest 1V portable [id number] IMPRESSION: No acute findings.
--- NOTE | 2024-03-04 19:46 | ED_ITS ---
HPI - Chest Pain 2 General: Chief Complaint: Chest Pain Stated Complaint: Chest Pain Time Seen by Provider: 03/04/24 19:24 Source: patient and EMS History of Present Illness: Patient is a 59-year-old female who presents to the ER with complaints of substernal pressure-like chest pain that started abruptly at her home just about an hour before arrival. She states she was sitting on the couch whenever she developed chest pain and shortness of breath that she states feels like a boulder sitting on her chest. She denies any fevers or chills. Her pain does radiate occasionally into her back. No vomiting or diaphoresis. She was given nitroglycerin by EMS and states it did help somewhat. She has had a history of chest pain in the past as well as some tachycardia. She had a heart cath in 2021 which showed some mild diffuse coronary artery disease. She did not require any stenting and does not have any coronary stents. No history of PE or DVT. No exacerbating or alleviating factors. MD complaint: chest pain Associated symptoms: Reports dyspnea; Deny abdominal pain, diaphoresis, fever(s), nausea or vomiting Review of Systems 2 Const: Denies: fever(s), chills or diaphoresis Card: Reports: chest pain and dyspnea on exertion Resp: Reports: dyspnea GI: Denies: abdominal pain, nausea or vomiting Skin/Breast: Denies: rash Neuro: Denies: headache(s) PFSH ED 2 PFSH: Medical History Chest pain Abnormal EKG Atherosclerotic heart disease of [place] coronary artery with other forms of angina pectoris GERD (gastroesophageal reflux disease) Benign essential hypertension with target blood pressure below 140/90 Bradycardia AV block, 2nd degree Recurrent vomiting HTN (hypertension) Nausea and vomiting Dyslipidemia Elevated blood pressure reading Unstable angina Chest pain Palpitations Chest pain Emphysema of lung Quit in 2019 Chronic migraine without aura, intractable, with status migrainosus Surgical History H/O colonoscopy History of surgery ULCERS AND PART OF STOMACH REMOVED History of colon resection History of hysterectomy History of appendectomy History of cholecystectomy Family History Mother CAD (coronary artery disease), Onset Age: 50 Cancer Lung disease Stroke Denies family history of Diabetes Clotting disorder Dementia Chronic kidney disease (CKD) Suicide Anesthesia complication Bleeding disorder Social History Smoking and tobacco/nicotine status: unknown if used tobacco/nicotine Alcohol intake: former Substance/Drug Use: never Physical Exam 2 Const: COMMON NORMALS: no acute distress, average body habitus, alert and well nourished GENERAL APPEARANCE: cooperative and anxious O RIENTATION/CONSCIOUSNESS: Yes awake HENMT: COMMON NORMALS: normocephalic and atraumatic HEAD & SCALP: n ormocephalic and atraumatic Eye: COMMON NORMALS: conjunctivae normal CONJUNCTIVA: Yes conjunctivae normal Neck/C-Spine: GENERAL: Yes normal visual inspection Resp: COMMON NORMALS: No retractions and No use of accessory muscles OTHER: Tachypneic Cardio: COMMON NORMALS: Peripheral pulses 2+ throughout RATE: tachycardic PERIPHERAL PULSES: Peripheral pulses 2+ throughout GI: COMMON NORMALS: Soft to palpation and non-tender PALPATION: Yes Soft to palpation Extremity: COMMON NORMALS: full ROM and no pedal edema Neuro: COMMON NORMALS: no focal motor deficits SENSORIUM/ORIENTATION: Yes alert Skin: COMMON NORMALS: no rashes or lesions noted GENERAL SKIN EXAM: no rashes or lesions noted Course 2 Vital Signs: Vital signs: Vital Signs Temperature 97.8 F 03/04/24 19:32 Pulse Rate 88 03/04/24 22:32 Respiratory Rate 16 03/04/24 22:32 Blood Pressure 111/68 03/04/24 22:32 Pulse Oximetry 99 03/04/24 22:32 Oxygen Delivery Me thod Room Air 03/04/24 22:32 MDM - Chest Pain Medical Decision Making Patient is a 59-year-old female who presents to the ER with primary complaint of substernal chest pain. She does appear to be fairly anxious and is tachycardic here. She was also complaining of some shortness of breath. Chest x-ray without any obvious pneumonia or infiltrate. EKG does have ST depressions noted in the lateral precordial leads. D-dimer is normal. Patient's pain was minimally improved with nitroglycerin x 2. She did receive aspirin prior to arrival. She was given morphine which ultimately did relieve her pain. Troponin and delta troponin are normal. Basic labs are unremarkable per my interpretation otherwise. She does have a known history of mild coronary artery disease but no stents. Her last heart cath was 2 years ago per my review of her previous records. Patient desired observation admission due to her pain and states she does not feel like this is anxiety. I think dissection is very unlikely given her description of pain and normal chest x-ray without any widening of the mediastinum. Spoke with the hospitalist who requested I speak with Dr. Leong with cardiology. Dr. Leong states that he would consult in the morning. Dr. Lama with hospitalist service will admit for observation. Medical Records I reviewed the patient's medical records. Lab Data I reviewed the patient's lab results. 03/04/24 19:58 03/04/24 19:58 Radiology Impressions Chest X-Ray 03/04/24 19:37 IMPRESSION: No acute findings. Laboratory Results WBC 4.83 10^3/uL (3.29-11.43) 03/04/24 19:58 RBC 4.31 10^6/uL (3.85-5.65) 03/04/24 19:58 Hgb 9.20 g/dL (11.27-16.99) L 03/04/24 19:58 Hct 32.0 % (36-47) L 03/04/24 19:58 MCV 74.2 fl (85-98) L 03/04/24 19:58 MCH 21.3 pg (27-33) L 03/04/24 19:58 MCHC 28.8 g/dL (30-55) L 03/04/24 19:58 RDW 16.7 % (12.1-15.1) H 03/04/24 19:58 Plt Count 259 10^3/cmm (157-399) 03/04/24 19:58 MPV 10.1 fL (7.4-10.4) 03/04/24 19:58 Neut % (Auto) 56.6 % 03/04/24 19:58 Lymph % (Auto) 27.3 % 03/04/24 19:58 [place] % (Auto) 9.7 % 03/04/24 19:58 Eos % (Auto) 6.0 % 03/04/24 19:58 Baso % (Auto) 0.2 % 03/04/24 19:58 Neut # (Auto) 2.73 10^3/uL (1.8-7.7) 03/04/24 19:58 Lymph # (Auto) 1.3 10^3/uL (0.8-4.8) 03/04/24 19:58 [place] # (Auto) 0.5 10^3/uL (0.2-0.9) 03/04/24 19:58 Eos # (Auto) 0.3 10^3/uL (0.0-0.8) 03/04/24 19:58 Baso # (Auto) 0.0 10^3/uL (0.0-0.1) 03/04/24 19:58 Nucleated RBC % (auto) 0 % 03/04/24 19:58 Nucleated RBCs # 0.0 /100WBC 03/04/24 19:58 PT 12.60 SECONDS (12.1-14.9) 03/04/24 19:58 INR 0.92 (0.8-1.2) 03/04/24 19:58 D-Dimer 0.35 ug/mLFEU (0-0.59) 03/04/24 19:58 Sodium 140 mmol/L (136-145) 03/04/24 19:58 Potassium 3.7 mmol/L (3.5-5.1) 03/04/24 19:58 Chloride 106 mmol/L (98-107) 03/04/24 19:58 Carbon Dioxide 21 mmol/L (22-29) L 03/04/24 19:58 Anion Gap 16.7 (5-19) 03/04/24 19:58 BUN 16 mg/dL (6-20) 03/04/24 19:58 Creatinine 0.5 mg/dL (0.5-0.9) 03/04/24 19:58 GFR Calculation 126.3 mL/min (90-130) 03/04/24 19:58 Glucose 104 mg/dL (65-115) 03/04/24 19:58 Calculated Osmolality 291 mOsm/kg (285-295) 03/04/24 19:58 Calcium 9.1 mg/dL (8.5-10.5) 03/04/24 19:58 Total Bilirubin 0.2 mg/dL (0.15-1.2) 03/04/24 19:58 AST 18 U/L (0-32) 03/04/24 19:58 ALT 10 U/L (0-33) 03/04/24 19:58 Alkaline Phosphatase 90 U/L (35-105) 03/04/24 19:58 Troponin T Baseline < 6 ng/L (0-10) 03/04/24 19:58 Troponin T 120 Minute 6.00 ng/L (0-10) 03/04/24 21:12 Delta Troponin T 0.57007 ABS# (0-10) 03/04/24 21:12 NT-Pro-B Natriuret Pep 209 pg/mL (0-125) H 03/04/24 19:58 Total Protein 6.5 g/dL (6.6-8.7) L 03/04/24 19:58 Albumin 4.5 g/dL (3.5-5.2) 03/04/24 19:58 Globulin 2.0 g/dL (1.3-4.6) 03/04/24 19:58 All radiology interpretation(s) finalized by discharge EKG Data EKG 2: I personally reviewed and interpreted this EKG as follows: EKG interpretation date: 03/04/24 EKG interpretation time: 20:25 Prior EKG tracings: available for review Interpretation: Sinus rhythm with a rate of [address] depression is still noted in the lateral precordial leads though less significant than previous EKG. No ST elevations noted. EKG 1: I personally reviewed and interpreted this EKG as follows: EKG interpretation date: 03/04/24 EKG interpretation time: 19:38 Interpretation: Sinus tachycardia with ST depressions in the lateral precordial leads and inferior leads. No ischemic ST elevation. Rate of 112 bpm. Discharge Plan Discharge Patient Disposition: Admitted As Inpatient Clinical Impression: SOB (shortness of breath), Tachycardia, Chest pain Condition: Stable Prescriptions: No Action (DME) Cam Boot to the left See Rx Instructions .Route .MEDSUPPLY Qty: 1 0RF Rx Instructions: As directed tizanidine 2 mg tablet 2 mg PO Q6H PRN (Reason: Spasms) albuterol sulfate 90 mcg/actuation HFA aerosol inhaler 2 puff inhalation Q4H PRN (Reason: shortness of breath or wheezing) omeprazole 40 mg capsule,delayed release(DR/EC) 40 mg PO DAILY PRN (Reason: Heartburn) ferrous sulfate 325 mg (65 mg iron) tablet 325 mg PO QAM Nitrostat 0.4 mg Tablet, Sublingual 0.4 mg SUBLINGUAL Q5M PRN (Reason: Chest Pain) Rx Instructions: do not exceed 3 doses per episode Excedrin Extra Strength 250-250-65 mg Tablet 2 tab PO Q4H PRN (Reason: Pain) Spiriva Respimat 2.5 mcg/actuation mist 2 inh INHALATION DAILY docusate sodium 100 mg capsule 100 mg PO BID Qty: 60 0RF Referrals: Braden Owen NP [Primary Care Provider] - Coding Level of Care Code ED Farm Service Consultant for Storm Wolfe
[2024-03-04 20:04] LABS: Basophils % 0.2 %; Eosinophils # 0.3 10^3/uL (0.0-0.8); Lymphocytes # 1.3 10^3/uL (0.8-4.8); Lymphocytes % 27.3 %; Mean Corpuscular HGB Conc 28.8 g/dL (30-55); Mean Corpuscular Hemoglobin 21.3 pg (27-33); Mean Corpuscular Volume 74.2 fl (85-98); Mean Platelet Volume 10.1 fL (7.4-10.4); Monocytes # 0.5 10^3/uL (0.2-0.9); Monocytes % 9.7 %; Neutrophils # 2.73 10^3/uL (1.8-7.7); Neutrophils % 56.6 %; Nucleated Red Blood Cells % 0 %; Platelet Count 259 10^3/cmm (157-399); Red Blood Count 4.31 10^6/uL (3.85-5.65); Red Cell Distribution Width 16.7 % (12.1-15.1); White Blood Count 4.83 10^3/uL (3.29-11.43)
[2024-03-04 20:22] LABS: INR 0.92 (0.8-1.2)
--- NOTE | 2024-03-04 20:22 | ECG_ITS ---
[facility] Test Date: 2024-03-04 Pat Name: Radha Maguire Department: Room: Gender: Female Tool Room Attendant: : 1965 Requested By: Jonathan Treviño Order Number: [id number] Diaz MD: Shar Lou M.D. Measurements Intervals [place] Rate: 93 P: 68 IN: 124 QRS: 37 QRSD: 86 T: 51 QT: 348 QTc: 433 Interpretive Statements SINUS RHYTHM POSSIBLE LEFT ATRIAL ENLARGEMENT [-0.1mV P-WAVE IN V1/V2] POSSIBLE RIGHT VENTRICULAR CONDUCTION DELAY [RSR (QR) IN V1/V2] MODERATE ST DEPRESSION [0.05+ mV ST DEPRESSION] Compared to ECG 02/09/2024 10:55:12 ST (T wave) deviation now present Electronically Signed On 03-05-2024 6:59:17 CDT by Shar Lou M.D. [id number]
[2024-03-04 20:24] LABS: Troponin(5th) Baseline < 6 ng/L (0-10)
[2024-03-04 20:25] LABS: D Dimer 0.35 ug/mLFEU (0-0.59)
[2024-03-04 20:34] LABS: Alanine Aminotransferase 10 U/L (0-33); Albumin Level 4.5 g/dL (3.5-5.2); Alkaline Phosphatase 90 U/L (35-105); Aspartate Amino Transferase 18 U/L (0-32); Blood Urea Nitrogen 16 mg/dL (6-20); Calcium 9.1 mg/dL (8.5-10.5); Carbon Dioxide 21 mmol/L (22-29); Chloride 106 mmol/L (98-107); Creatinine Clr Calc Pharmacy 106.2164; Glomerular Filtration Rate 126.3 mL/min (90-130); Glucose 104 mg/dL (65-115); NT Pro B Type Natriuretic Pept 209 pg/mL (0-125); Osmolality Calculated 291 mOsm/kg (285-295); Sodium 140 mmol/L (136-145); Total Bilirubin 0.2 mg/dL (0.15-1.2); Total Protein 6.5 g/dL (6.6-8.7)
[2024-03-04 20:46] LABS: Anion Gap 16.7 (5-19); Potassium 3.7 mmol/L (3.5-5.1)
[2024-03-04] MEDS: nitroglycerin 0.4 mg sublingual Tablet SUBLINGUAL (21:00)
--- NOTE | 2024-03-04 21:13 | PC.NURSE ---
I was able to obtain I.V. access on patient using the ultrasound machine after other nurses had several failed attempts.
--- NOTE | 2024-03-04 21:37 | ECG_ITS ---
[facility] Test Date: 2024-03-04 Pat Name: Radha Maguire Department: Room: Gender: Female Customer Order Clerk: : 1965 Requested By: Jonathan Treviño Order Number: [id number] Diaz MD: Shar Lou M.D. Measurements Intervals [place] Rate: 105 P: 66 [place]: 118 QRS: 48 QRSD: 86 T: 56 QT: 334 QTc: 442 Interpretive Statements SINUS TACHYCARDIA WITH SHORT [place] INTERVAL POSSIBLE LEFT ATRIAL ENLARGEMENT [-0.1mV P-WAVE IN V1/V2] POSSIBLE RIGHT VENTRICULAR CONDUCTION DELAY [RSR (QR) IN V1/V2] MODERATE ST DEPRESSION [0.05+ mV ST DEPRESSION] Compared to ECG 03/04/2024 20:22:29 Short [place] interval now present Sinus rhythm no longer present ST (T wave) deviation still present Electronically Signed On 03-05-2024 7:00:26 CDT by Shar Lou M.D. [id number]
[2024-03-04] MEDS: morphine 4 mg/mL SDV 1 mL IVP (21:58)
[2024-03-04 22:08] LABS: Troponin 5 2HR Delta 0.00001 ABS# (0-10)
--- NOTE | 2024-03-04 22:53 | P.HP_ITS ---
Providers/Chief Complaint 2 Primary Care Provider: Braden Owen NP Chief Complaint: Chest Pain History of Present Illness Radha Maguire is a 59 year old female with a past medical history significant for nonobstructive coronary artery disease, hypertension, second-degree AV block, dyslipidemia, and COPD/emphysema who presents emergency department with chest pain. She reports onset about 2:30 PM on Thursday afternoon. She describes the location is substernal. Denies significant radiation. She rates 10 out of 10. She states exertion worsens. She states the morphine helps. Denies other alleviating or aggravating factors. Patient has history of chest pains. She was admitted in March 2022 for cardiac catheterization showed nonobstructive coronary artery disease. Since that time, she states she has had on and off chest pains. She states that her chest pains occur more with exertion. She also complains of palpitations and labile heart rate. She follows with Dr. Neff in cardiology clinic. In the emergency department, troponins were negative. EKG with T-wave depressions. Cardiology consulted by ED provider. Review of Systems 2 Narrative: A complete review of systems was obtained and is negative except as stated in HPI. Medications/Allergies Home Medications Medication Instructions Recorded Confirmed Last Taken Type tizanidine 2 mg tablet 2 mg PO Q6H PRN Spasms 10/12/19 07/16/23 Unknown History Cam Boot to the left #1 ea 12/25/21 07/16/23 Unknown Rx albuterol sulfate 90 mcg/actuation 2 puff inhalation Q4H PRN 03/20/22 07/16/23 Unknown History aerosol inhaler shortness of breath or wheezing [id number] 250 2 tab PO Q4H PRN Pain 07/16/23 07/16/23 Unknown History mg-250 mg-65 mg tablet (Excedrin Extra Strength) ferrous sulfate 325 mg (65 mg 325 mg PO QAM 07/16/23 07/16/23 Unknown History iron) tablet nitroglycerin 0.4 mg sublingual 0.4 mg sublingual Q5M PRN Chest 07/16/23 07/16/23 Unknown History tablet (Nitrostat) Pain omeprazole 40 mg capsule,delayed 40 mg PO DAILY PRN Heartburn 07/16/23 07/16/23 Unknown History release tiotropium bromide 2.5 2 inh inhalation DAILY 07/16/23 07/16/23 Unknown History mcg/actuation mist for inhalation (Spiriva Respimat) docusate sodium 100 mg capsule 100 mg PO BID #60 caps 07/19/23 Unknown Rx Allergies Allergy/AdvReac Type Severity Reaction Status Date / Time diphenhydramine Allergy Unknown Verified 02/09/24 10:10 [From Benadryl] hydromorphone [From Dilaudid] Allergy ADR-Vomitin Verified 02/09/24 10:10 g ibuprofen [From Motrin] Allergy ALGY-Anaphy Verified 02/09/24 10:10 laxis Penicillins Allergy ALGY-Anaphy Verified 02/09/24 10:10 laxis tramadol Allergy Unknown Verified 02/09/24 10:10 PFSH Acute 2 PFSH: Medical History (Updated 03/05/24 @ 00:15 by Chon Lama MD) Microcytic anemia Leukocytosis Small bowel obstruction Dyslipidemia Nondisplaced fracture of fifth right metatarsal bone Fracture of fourth metatarsal bone of right foot SOB (shortness of breath) Hx of COPD, 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,quit in 2000 Metatarsal bone fracture Dysphagia Weight loss Peripheral neuropathy Chest pain Abnormal EKG Atherosclerotic heart disease of [place] coronary artery with other forms of angina pectoris GERD (gastroesophageal reflux disease) Benign essential hypertension with target blood pressure below 140/90 Bradycardia AV block, 2nd degree Recurrent vomiting HTN (hypertension) Nausea and vomiting Elevated blood pressure reading Unstable angina Chest pain Palpitations Chest pain Emphysema of lung Quit in 2019 Chronic migraine without aura, intractable, with status migrainosus Surgical History (Updated 03/05/24 @ 00:15 by Chon Lama MD) Status post colon resection H/O colonoscopy History of surgery ULCERS AND PART OF STOMACH REMOVED History of colon resection History of hysterectomy History of appendectomy History of cholecystectomy Family History Mother CAD (coronary artery disease), Onset Age: 50 Cancer Lung disease Stroke Denies family history of Diabetes Clotting disorder Dementia Chronic kidney disease (CKD) Suicide Anesthesia complication Bleeding disorder Social History Smoking and tobacco/nicotine status: unknown if used tobacco/nicotine Alcohol intake: former Substance/Drug Use: never Vitals/I&O/Wt Last Vital Signs Temp 97.8 F 03/04/24 19:32 Pulse 88 03/04/24 22:32 Resp 16 03/04/24 22:32 BP 111/68 03/04/24 22:32 Pulse Ox 99 03/04/24 22:32 O2 Del Method Room Air 03/04/24 22:32 Weight last 48 hrs Weight 49.895 kg Physical Exam 2 Narrative: General: Patient is awake and alert. Head: Normocephalic. Atraumatic. EOM intact. Neck: No JVD. Cardiovascular: RRR. No gallops. No murmurs. No peripheral edema. Lungs: Clear to auscultation, no use of accessory muscles, no crackles or wheezes. Skin: No jaundice. No rashes. Abdomen: Normal bowel sounds, abdomen soft and nontender. Genito Urinary: Genital exam not performed since complaints not related. Rectal: Rectal exam not performed since no symptoms indicated blood loss. Extremities: No cyanosis or clubbing. Musculoskeletal: No swollen or erythematous joints. Neurological: Moves all 4 extremities. No myoclonus. Data 03/04/24 19:58 03/04/24 19:58 A&P Assessment and plan (1) Chest pain: In the setting of known nonobstructive coronary disease Prior cardiac cath from March 2022 reviewed Cardiology clinic notes reviewed Solvent Process Extractor Operator, Dr. Leong consulted by ED, will see in a.m. N.p.o. after midnight for cardiology evaluation Echocardiogram Repeat troponin in a.m. Repeat EKG in a.m. Nitro as needed Morphine as needed for breakthrough Therapeutic Lovenox (2) AV block, 2nd degree: Continuous telemetry monitoring (3) COPD (chronic obstructive pulmonary disease): History of tobacco use disorder in remission Hold inhalers DuoNebs as needed Qualifiers: COPD type: unspecified COPD Qualified Code(s): J44.9 - Chronic obstructive pulmonary disease, unspecified (4) Microcytic anemia: Hemoglobin at baseline (5) Dyslipidemia: Not on pharmacological treatment (6) GERD (gastroesophageal reflux disease): Formulary PPI Plan DVT prophylaxis: Lovenox Attestations 2 Medical Necessity Statement*: Patient presents with chest pain with expected hospitalization not to cross 2 midnights for serial troponins, echo, cardiac monitoring, and cardiology evaluation. Coding Level of Care Code Acute Code for [facility] Diagnoses Chest pain R07.9 AV block, 2nd degree I44.1 COPD (chronic obstructive pulmonary disease) J44.9 COPD type: unspecified COPD Microcytic anemia D50.9 Dyslipidemia E78.5 GERD (gastroesophageal reflux disease) K21.9
[2024-03-05] VITALS (10 sets, daily range): BP systolic 99–135; BP diastolic 59–79; PULSE 65–103; RESP 17–38; TEMP 36.6–37.1; O2SAT 96–99
[2024-03-05 01:37] LABS: Troponin 5 6HR Delta 0.00001 ng/L (0-12)
--- NOTE | 2024-03-05 01:37 | ECG_ITS ---
[facility] Test Date: 2024-03-05 Pat Name: Radha Maguire Department: Room: 107 Gender: Female Interior Designer: : 1965 Requested By: Jonathan Treviño Order Number: [id number] Diaz MD: Shar Lou M.D. Measurements Intervals [place] Rate: 93 P: 71 [place]: 128 QRS: 71 QRSD: 93 T: 72 QT: 353 QTc: 439 Interpretive Statements SINUS RHYTHM INCOMPLETE RIGHT BUNDLE BRANCH BLOCK [90+ ms QRS DURATION, TERMINAL R IN V1/V2, 40+ ms S IN I/aVL/V4/V5/V6] Compared to ECG 03/04/2024 21:38:21 Incomplete right bundle-branch block now present Sinus tachycardia no longer present Short [place] interval no longer present ST (T wave) deviation no longer present Electronically Signed On 03-05-2024 7:00:21 CDT by Shar Lou M.D. [id number]
[2024-03-05] MEDS: morphine 4 mg/mL SDV 1 mL 2 MG IVP ×3 (01:39→09:42)
[2024-03-05] MEDS: nitroglycerin 0.4 mg sublingual Tablet SUBLINGUAL (05:44)
--- NOTE | 2024-03-05 06:00 | ECG_ITS ---
[facility] Test Date: 2024-03-05 Pat Name: Radha Maguire Department: Room: 107 Gender: Female Benzol Operator: : 1965 Requested By: Chon Ferrera Order Number: [id number] Diaz MD: Shar Lou M.D. Measurements Intervals [place] Rate: 101 P: 72 ID: 122 QRS: 73 QRSD: 83 T: 72 QT: 339 QTc: 440 Interpretive Statements SINUS TACHYCARDIA POSSIBLE RIGHT VENTRICULAR CONDUCTION DELAY [RSR (QR) IN V1/V2] MODERATE ST DEPRESSION [0.05+ mV ST DEPRESSION] Compared to ECG 03/05/2024 01:59:52 ST (T wave) deviation now present Sinus rhythm no longer present Incomplete right bundle-branch block no longer present Electronically Signed On 03-05-2024 7:00:17 CDT by Shar Lou M.D. [id number]
[2024-03-05] MEDS: ondansetron 2 mg/ML SDV 2 mL 4 MG IVP (06:42)
--- NOTE | 2024-03-05 08:28 | P.CONIM_ITS ---
Providers/Reason For Consult 2 Consulting Physician/Specialty*: Cardiovascular medicine Reason for Consult*: Chest pain Requesting Physician: Emergency room/hospitalist Attending Physician: Pina Cox MD Primary Care Provider: Braden Owen NP History of Present Illness History of Present Illness Radha Maguire is a 59 year old female with chronic intermittent chest pain. Workup over the last couple years has been negative. She is in and out of the hospital frequently with multiple complaints. She just saw Dr. Neff about 3 weeks ago. No further testing was ordered at that time. 2 years ago she had a myocardial perfusion scan which was unremarkable. This led to cardiac catheterization in March 2022 which showed minimal nonobstructive disease. The lesions were at most 20%. Patient came into the emergency room last night complaining of severe chest pain. She was tachycardic at a rate of 112. Her initial EKG at 1935 showed sinus tachycardia with minimal diffuse ST segment depression. Second EKG at 2021 hrs. showed sinus rhythm and the ST segments had come back to normal. Third EKG at 7 hrs. revealed sinus tachycardia again with similar minimal ST segment depression. She had a fourth EKG at 137 this morning showing sinus rhythm at [address] segments. Fifth EKG at 6:00 this morning showed sinus tachycardia at a rate of [address] segments depressed slightly. As I see her she states that she does not feel very good. She is moaning slightly and whimpering. She is not having any chest pain at this time. Her troponins are all negative as are the rest of her labs. She has a number of chronic underlying medical problems including headaches, anemia, dyslipidemia, hypertension, bradycardia, stress and anxiety, prior tobacco abuse, chronic weak weakness and fatigue and an undocumented history of second-degree AV block. Review of Systems 2 Narrative: Review of systems is positive in nearly every distribution Medications/Allergies Home Medications Medication Instructions Recorded Confirmed Last Taken Type tizanidine 2 mg tablet 2 mg PO Q6H PRN Spasms 10/12/19 03/05/24 Unknown History albuterol sulfate 90 mcg/actuation 2 puff inhalation Q4H PRN 03/20/22 03/05/24 Unknown History aerosol inhaler shortness of breath or wheezing jlhebxu-tjzhpbtrsyqrw-bieiubxw 250 2 tab PO Q4H PRN Pain 07/16/23 03/05/24 Unknown History mg-250 mg-65 mg tablet (Excedrin Extra Strength) nitroglycerin 0.4 mg sublingual 0.4 mg sublingual Q5M PRN Chest 07/16/23 03/05/24 Unknown History tablet (Nitrostat) Pain Allergies Allergy/AdvReac Type Severity Reaction Status Date / Time diphenhydramine Allergy Unknown Verified 02/09/24 10:10 [From Benadryl] hydromorphone [From Dilaudid] Allergy ADR-Vomitin Verified 02/09/24 10:10 g ibuprofen [From Motrin] Allergy ALGY-Anaphy Verified 02/09/24 10:10 laxis Penicillins Allergy ALGY-Anaphy Verified 02/09/24 10:10 laxis tramadol Allergy Unknown Verified 02/09/24 10:10 Current Medications Generic Name Dose Route Start Last Admin Trade Name Freq PRN Reason Stop Dose Admin Morphine Sulfate 2 mg 03/05/24 00:46 03/05/24 05:39 Morphine 4 Mg/Ml Sdv 1 Ml IVP 2 mg Q4H PRN Administration Severe pain Nitroglycerin 0.4 mg 03/04/24 19:39 03/05/24 05:44 Nitroglycerin 0.4 Mg Sublingual Tablet SUBLINGUAL 0.4 mg Q5M PRN Administration CHEST PAIN Ondansetron HCl 4 mg 03/04/24 22:55 03/05/24 06:42 Ondansetron 2 Mg/Ml Sdv 2 Ml IVP 4 mg Q8H PRN Administration vomiting, or N/V if npo PFSH Acute 2 PFSH: Medical History (Updated 03/05/24 @ 00:15 by Chon Lama MD) Microcytic anemia Leukocytosis Small bowel obstruction Dyslipidemia Nondisplaced fracture of fifth right metatarsal bone Fracture of fourth metatarsal bone of right foot SOB (shortness of breath) Hx of COPD, 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,quit in 2000 Metatarsal bone fracture Dysphagia Weight loss Peripheral neuropathy Chest pain Abnormal EKG Atherosclerotic heart disease of [place] coronary artery with other forms of angina pectoris GERD (gastroesophageal reflux disease) Benign essential hypertension with target blood pressure below 140/90 Bradycardia AV block, 2nd degree Recurrent vomiting HTN (hypertension) Nausea and vomiting Elevated blood pressure reading Unstable angina Chest pain Palpitations Chest pain Emphysema of lung Quit in 2019 Chronic migraine without aura, intractable, with status migrainosus Surgical History (Updated 03/05/24 @ 00:15 by Chon Lama MD) Status post colon resection H/O colonoscopy History of surgery ULCERS AND PART OF STOMACH REMOVED History of colon resection History of hysterectomy History of appendectomy History of cholecystectomy Family History Mother CAD (coronary artery disease), Onset Age: 50 Cancer Lung disease Stroke Denies family history of Diabetes Clotting disorder Dementia Chronic kidney disease (CKD) Suicide Anesthesia complication Bleeding disorder Social History Smoking and tobacco/nicotine status: unknown if used tobacco/nicotine Alcohol intake: former Substance/Drug Use: never Vitals/I&O/Wt Last Vital Signs Temp 98.0 F 03/05/24 08:00 Pulse 95 03/05/24 08:00 Resp 23 H 03/05/24 08:00 BP 99/59 03/05/24 08:00 Pulse Ox 96 03/05/24 08:00 O2 Del Method Room Air 03/05/24 08:00 Weight last 48 hrs Weight 109 lb 14.4 oz Weight 109 lb 9.6 oz Weight 110 lb Physical Exam 2 Narrative: GENERAL: In general she looks comfortable. Her heart rate is 99 bpm HEENT: Exam within normal limits. NECK: Supple without jugular vein distention. The carotid upstroke is normal without bruits. BACK: Exam normal. LUNGS: Clear. HEART: Regular rate and rhythm. ABDOMEN: Benign without organomegaly or tenderness. EXTREMITIES: No edema. NEUROLOGIC: Exam normal. SKIN: Unremarkable. Data 03/04/24 19:58 03/04/24 19:58 A&P Assessment and plan (1) Dyslipidemia: (2) Tachycardia: (3) Chest pain: (4) Microcytic anemia: (5) Chronic migraine without aura, intractable, with status migrainosus: (6) COPD (chronic obstructive pulmonary disease): Qualifiers: COPD type: unspecified COPD Qualified Code(s): J44.9 - Chronic obstructive pulmonary disease, unspecified Consult Attestations 2 Medical Necessity Statement: Her EKGs are unremarkable. The ST segment depression is minimal and only occurs when she is tachycardic. It normalizes when her heart rate is under 100 bpm. Her troponins are negative. This is not unstable angina. I see no indication for any type of cardiac testing while in the hospital. I believe she can safely be discharged today. She does not need an echo. She just saw Dr. Neff less than a month ago. She can see him as scheduled. I would not recommend any cardiac testing as an outpatient at this time. and Moderate Time for a total of 35 minutes, includes reviewing past or interval history, examining/interviewing patient, counseling patient/family/other support, updating patient/family/other support, discussing plan of care with staff, communicating with other healthcare providers and documenting encounter Diagnoses Dyslipidemia E78.5 Tachycardia R00.0 Chest pain R07.9 Microcytic anemia D50.9 Chronic migraine without aura, intractable, with status migrainosus G43.711 COPD (chronic obstructive pulmonary disease) J44.9 COPD type: unspecified COPD
--- NOTE | 2024-03-05 08:43 | P.DS_ITS ---
Discharge Providers Date of Admission: 03/05/24 00:24 Date of Discharge: March 05, 2024 Attending Provider at Admission: Chon Lama MD Attending Provider at Discharge: Pina Cox MD Primary Care Provider: Braden Owen NP Diagnoses at Discharge Discharge Diagnosis (1) Dyslipidemia: Status: Acute (2) Tachycardia: Status: Resolved (3) Chest pain: Status: Resolved (4) Microcytic anemia: Status: Acute (5) Chronic migraine without aura, intractable, with status migrainosus: Status: Acute (6) COPD (chronic obstructive pulmonary disease): Status: Acute Qualifiers: COPD type: unspecified COPD Qualified Code(s): J44.9 - Chronic obstruct julissa pulmonary disease, unspecified Reason for Visit Reason for Visit: Chest Pain Hospital Course Hospital Course Patient presented to the hospital with chest pain which she described as substernal. She was seen by cardiology and her pain seemed to be noncardiac at the time. She states that she has spasms while swallowing and has had difficulty on and off with swallowing with solids and sometimes liquids. She says she has seen Dr. Neff in the past for this as well and has not been formally diagnosed with dysphagia or diffuse esophageal spasm or any other GI related issues. I did recommend a barium swallow to her versus an EGD however being at the weekend she may have to wait till Thursday for the barium study. Patient states that she would like to follow-up as an outpatient for any further workup needed. She would like to go home today. She was given outpatient prescription for barium swallow and referral to Dr. Juan AUGUST in [place] and asked to follow-up with her primary care doctor after discharge. Patient in agreement with above. She was also given Protonix at time of discharge. Physical Exam Narrative: GENERAL: In general she looks comfortable. Her heart rate is 99 bpm HEENT: Exam within normal limits. NECK: Supple without jugular vein distention. The carotid upstroke is normal without bruits. BACK: Exam normal. LUNGS: Clear. HEART: Regular rate and rhythm. ABDOMEN: Benign without organomegaly or tenderness. EXTREMITIES: No edema. NEUROLOGIC: Exam normal. SKIN: Unremarkable. Discharge Data Studies Completed and Pending Completed Studies During Hospitalization Category Date Time Status XR chest 1V portable [id number] Stat Exams 03/04/24 19:37 Completed Radiology Impressions Chest X-Ray 03/04/24 19:37 IMPRESSION: No acute findings. Laboratory Results WBC 4.83 10^3/uL (3.29-11.43) 03/04/24 19:58 RBC 4.31 10^6/uL (3.85-5.65) 03/04/24 19:58 Hgb 9.20 g/dL (11.27-16.99) L 03/04/24 19:58 Hct 32.0 % (36-47) L 03/04/24 19:58 MCV 74.2 fl (85-98) L 03/04/24 19:58 MCH 21.3 pg (27-33) L 03/04/24 19:58 MCHC 28.8 g/dL (30-55) L 03/04/24 19:58 RDW 16.7 % (12.1-15.1) H 03/04/24 19:58 Plt Count 259 10^3/cmm (157-399) 03/04/24 19:58 MPV 10.1 fL (7.4-10.4) 03/04/24 19:58 Neut % (Auto) 56.6 % 03/04/24 19:58 Lymph % (Auto) 27.3 % 03/04/24 19:58 [place] % (Auto) 9.7 % 03/04/24 19:58 Eos % (Auto) 6.0 % 03/04/24 19:58 Baso % (Auto) 0.2 % 03/04/24 19:58 Neut # (Auto) 2.73 10^3/uL (1.8-7.7) 03/04/24 19:58 Lymph # (Auto) 1.3 10^3/uL (0.8-4.8) 03/04/24 19:58 [place] # (Auto) 0.5 10^3/uL (0.2-0.9) 03/04/24 19:58 Eos # (Auto) 0.3 10^3/uL (0.0-0.8) 03/04/24 19:58 Baso # (Auto) 0.0 10^3/uL (0.0-0.1) 03/04/24 19:58 Nucleated RBC % (auto) 0 % 03/04/24 19:58 Nucleated RBCs # 0.0 /100WBC 03/04/24 19:58 PT 12.60 SECONDS (12.1-14.9) 03/04/24 19:58 INR 0.92 (0.8-1.2) 03/04/24 19:58 D-Dimer 0.35 ug/mLFEU (0-0.59) 03/04/24 19:58 Sodium 140 mmol/L (136-145) 03/04/24 19:58 Potassium 3.7 mmol/L (3.5-5.1) 03/04/24 19:58 Chloride 106 mmol/L (98-107) 03/04/24 19:58 Carbon Dioxide 21 mmol/L (22-29) L 03/04/24 19:58 Anion Gap 16.7 (5-19) 03/04/24 19:58 BUN 16 mg/dL (6-20) 03/04/24 19:58 Creatinine 0.5 mg/dL (0.5-0.9) 03/04/24 19:58 GFR Calculation 126.3 mL/min (90-130) 03/04/24 19:58 Glucose 104 mg/dL (65-115) 03/04/24 19:58 Calculated Osmolality 291 mOsm/kg (285-295) 03/04/24 19:58 Calcium 9.1 mg/dL (8.5-10.5) 03/04/24 19:58 Total Bilirubin 0.2 mg/dL (0.15-1.2) 03/04/24 19:58 AST 18 U/L (0-32) 03/04/24 19:58 ALT 10 U/L (0-33) 03/04/24 19:58 Alkaline Phosphatase 90 U/L (35-105) 03/04/24 19:58 Troponin T Baseline < 6 ng/L (0-10) 03/04/24 19:58 Troponin T 120 Minute 6.00 ng/L (0-10) 03/04/24 21:12 Delta Troponin T 0.91827 ABS# (0-10) 03/04/24 21:12 Troponin T Hi Sens 6Hr 6.00 ng/L (0-10) 03/05/24 01:05 Troponin T Hi Sens 6Hr Delta 0.92866 ng/L (0-12) 03/05/24 01:05 NT-Pro-B Natriuret Pep 209 pg/mL (0-125) H 03/04/24 19:58 Total Protein 6.5 g/dL (6.6-8.7) L 03/04/24 19:58 Albumin 4.5 g/dL (3.5-5.2) 03/04/24 19:58 Globulin 2.0 g/dL (1.3-4.6) 03/04/24 19:58 Vitals Last Vital Signs Temp 98.0 F 03/05/24 08:00 Pulse 95 03/05/24 08:00 Resp 23 H 03/05/24 08:00 BP 99/59 03/05/24 08:00 Pulse Ox 96 03/05/24 08:00 O2 Del Method Room Air 03/05/24 08:00 Discharge Plan Discharge Patient Disposition: Home Condition: Stable Prescriptions: New Protonix 40 mg tablet,delayed release (DR/EC) 40 mg PO DAILY 42 Days Qty: 46 0RF Continued tizanidine 2 mg tablet 2 mg PO Q6H PRN (Reason: Spasms) albuterol sulfate 90 mcg/actuation HFA aerosol inhaler 2 puff inhalation Q4H PRN (Reason: shortness of breath or wheezing) nitroglycerin [Nitrostat] 0.4 mg Tablet, Sublingual 0.4 mg SUBLINGUAL Q5M PRN (Reason: Chest Pain) Rx Instructions: do not exceed 3 doses per episode Discontinued Excedrin Extra Strength 250-250-65 mg Tablet 2 tab PO Q4H PRN (Reason: Pain) No Action prednisone 20 mg tablet 20 mg PO DAILY Qty: 5 0RF ciprofloxacin HCl 500 mg tablet 500 mg PO BID Qty: 10 0RF loperamide 2 mg capsule 2 mg PO Q4H PRN (Reason: loose stool) Qty: 20 0RF Rx Instructions: administer after each loose stool ondansetron HCl 4 mg tablet 4 mg PO Q8H PRN (Reason: nausea and vomiting) Qty: 7 0RF Discharge Orders: Discharge Order (Routine); Ordered 03/05/24 Ordered By: Pina Cox Other Ambulatory Orders: [place] barium swallow gastro [id number] (Routine) Timeframe: 1 Week Facility: [facility] - Location: [facility] Ordered By: Pina Cox Referrals: Jenny Martinez MD [Referring] - 7-10 days (Diffuse esophageal spasm. Please call Dr Martinez to make a follow up appointment on Thursday March 07, 2024 at [phone].) Braden Owen NP [Primary Care Provider] - 4-7 days (Please call LIVAN Mullen to make a follow up appointment on Thursday March 07, 2024 at [phone].) Discharge Diet: Soft Mechanical Discharge Activity: Resume usual activity Patient Instructions: Pantoprazole (By mouth) (Protonix), Esophageal Spasm (GEN), Opioid Safety Discharge Attestations Time Spent in Discharge Care*: greater than 30 min Quality Metrics Clinical Quality Measures [ No reported AMI, CVA or VTE this stay] Coding Level of Care Code Acute Code for Chg Fwd Diagnoses Dyslipidemia E78.5 Tachycardia R00.0 Chest pain R07.9 Microcytic anemia D50.9 Chronic migraine without aura, intractable, with status migrainosus G43.711 COPD (chronic obstructive pulmonary disease) J44.9 COPD type: unspecified COPD
[2024-03-05] MEDS: ondansetron 4 MG Tablet PO (09:51)
--- NOTE | 2024-03-05 10:30 | PC.NURSE ---
Patient discharged to home with family to private vehicle. Instruction provided regarding follow up appointments needed and new medication. Patient verbalized understanding. Son at side. Patient taken to vehicle via wheelchair.
== END 2024-03-05 10:30 | disposition home or self-care (01) ==
LOC: ER 23:09 → CSU 03-05 00:25
PROVIDERS: Admitting Provider Internal Medicine; Emergency Provider Student in an Organized Health Care Education/Training Program; PCP Nurse Practitioner Family; Visit Provider Internal Medicine
DX: R00.0 Tachycardia, unspecified (principal); R07.9 Chest pain, unspecified; E78.5 Hyperlipidemia, unspecified; D50.9 Iron deficiency anemia, unspecified; G43.711 Chronic migraine without aura, intractable, with status migrainosus; J44.9 Chronic obstructive pulmonary disease, unspecified; K21.9 Gastro-esophageal reflux disease without esophagitis; I10 Essential (primary) hypertension
CPT/HCPCS: 36415; 71045; 80053; 83880; 84484; 85025; 85378; 85610; 93005; 96374; 96375; 96376; 99285; G0378; J2270; J2405; Q0162

== ENCOUNTER 2024-03-17 16:42 | Emergency (ER) | payer MEDICAID, SELFPAY ==
[2024-03-17 16:59] LABS: Basophils % 0.4 %; Eosinophils # 0.5 10^3/uL (0.0-0.8); Hematocrit 31.3 % (36-47); Lymphocytes # 1.2 10^3/uL (0.8-4.8); Lymphocytes % 24.4 %; Mean Corpuscular HGB Conc 28.4 g/dL (30-55); Mean Corpuscular Hemoglobin 20.9 pg (27-33); Mean Corpuscular Volume 73.6 fl (85-98); Mean Platelet Volume 10.5 fL (7.4-10.4); Monocytes # 0.5 10^3/uL (0.2-0.9); Neutrophils # 2.86 10^3/uL (1.8-7.7); Nucleated Red Blood Cells % 0 %; Platelet Count 270 10^3/cmm (157-399); Red Blood Count 4.25 10^6/uL (3.85-5.65); White Blood Count 5.01 10^3/uL (3.29-11.43)
--- NOTE | 2024-03-17 17:05 | ED_ITS ---
HPI - Abdominal Pain 2 General: Chief Complaint: Abdominal Pain Stated Complaint: abd pain Time Seen by Provider: 03/17/24 17:05 History of Present Illness: 59-year-old female comes in today for co mplaints of diarrhea stools. Patient reports diarrhea since the third of this month. Patient was discharged at that time from the hospital for some chest pain. Patient was prescribed some Protonix for probable GERD. Patient appears nontoxic. Patient appears no acute distress. Associated Symptoms: Reports diarrhea and nausea; Denies vomiting Related Data Home Medications Medication Instructions Recorded Confirmed tizanidine 2 mg tablet 2 mg PO Q6H PRN Spasms 10/12/19 03/05/24 albuterol sulfate 90 mcg/actuation 2 puff inhalation Q4H PRN 03/20/22 03/05/24 aerosol inhaler shortness of breath or wheezing nitroglycerin 0.4 mg sublingual 0.4 mg sublingual Q5M PRN Chest 07/16/23 03/05/24 tablet (Nitrostat) Pain Previous Rx's Medication Instructions Recorded pantoprazole 40 mg tablet,delayed 40 mg PO DAILY 6 weeks #46 tabs 03/05/24 release (Protonix) ciprofloxacin HCl 500 mg tablet 500 mg PO BID #10 tabs 03/17/24 loperamide 2 mg capsule 2 mg PO Q4H PRN loose stool #20 03/17/24 caps ondansetron HCl 4 mg tablet 4 mg PO Q8H PRN nausea and 03/17/24 vomiting #7 tabs prednisone 20 mg tablet 20 mg PO DAILY #5 tabs 03/17/24 Allergies Allergy/AdvReac Type Severity Reaction Status Date / Time diphenhydramine Allergy Unknown Verified 03/17/24 17:13 [From Benadryl] hydromorphone [From Dilaudid] Allergy ADR-Vomitin Verified 03/17/24 17:13 g ibuprofen [From Motrin] Allergy ALGY-Anaphy Verified 03/17/24 17:13 laxis Penicillins Allergy ALGY-Anaphy Verified 03/17/24 17:13 laxis tramadol Allergy Unknown Verified 03/17/24 17:13 Review of Systems 2 General: Reports: 10 or more systems reviewed and unremarkable except in HPI and below GI: Reports: nausea and diarrhea; Denies: vomiting PFSH ED 2 PFSH: Medical History (Updated 03/17/24 @ 20:37 by LIVAN Saeed) Microcytic anemia Leukocytosis Small bowel obstruction Dyslipidemia Nondisplaced fracture of fifth right metatarsal bone Fracture of fourth metatarsal bone of right foot SOB (shortness of breath) Hx of COPD, 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,quit in 2000 Metatarsal bone fracture Dysphagia Weight loss Peripheral neuropathy Chest pain Abnormal EKG Atherosclerotic heart disease of [place] coronary artery with other forms of angina pectoris GERD (gastroesophageal reflux disease) Benign essential hypertension with target blood pressure below 140/90 Bradycardia AV block, 2nd degree Recurrent vomiting HTN (hypertension) Nausea and vomiting Elevated blood pressure reading Unstable angina Chest pain Palpitations Chest pain Emphysema of lung Quit in 2019 Chronic migraine without aura, intractable, with status migrainosus Surgical History (Updated 03/05/24 @ 00:15 by Chon Lama MD) Status post colon resection H/O colonoscopy History of surgery ULCERS AND PART OF STOMACH REMOVED History of colon resection History of hysterectomy History of appendectomy History of cholecystectomy Family History Mother CAD (coronary artery disease), Onset Age: 50 Cancer Lung disease Stroke Denies family history of Diabetes Clotting disorder Dementia Chronic kidney disease (CKD) Suicide Anesthesia complication Bleeding disorder Social History Smoking and tobacco/nicotine status: unknown if used tobacco/nicotine Alcohol intake: former Substance/Drug Use: never Physical Exam 2 Const: COMMON NORMALS: alert HENMT: COMMON NORMALS: normocephalic HEAD & SCALP: normocephalic Neck/C-Spine: COMMON NORMALS: full ROM Resp: COMMON NORMALS: normal respiratory effort Cardio: COMMON NORMALS: regular rate RATE: regular rate GI: COMMON NORMALS: Soft to palpation and non-tender PALPATION: Yes Soft to palpation Back/Pelvis: COMMON NORMALS: thoracic and lumbar spine normal to inspection Extremity: COMMON NORMALS: full ROM Neuro: SENSORIUM/ORIENTATION: Yes alert Skin: COMMON NORMALS: turgor normal GENERAL SKIN EXAM: turgor normal Course 2 Vital Signs: Vital signs: Vital Signs Temperature 98.3 F 03/17/24 17:07 Pulse Rate 98 03/17/24 20:00 Respiratory Rate 18 03/17/24 20:00 Blood Pressure 139/68 03/17/24 20:00 Pulse Oximetry 99 03/17/24 20:25 Oxygen Delivery Me thod Room Air 03/17/24 20:00 MDM - Abdominal Pain Medical Decision Making 59-year-old female comes in today for complaints of diarrhea. Patient states that the diarrhea has been severe at times. Patient appears nontoxic. Respirations are even lungs are clear to auscultation. Abdomen soft and flat. Bowel sounds are normal. Differential diagnosis includes but not limited to diverticulitis, colitis, malingering, dehydration. CBC noted some anemia which was stable. CMP was unremarkable. CT of the abdomen pelvis noted some colonic stranding suggestive of colitis. Patient be placed on Cipro and prednisone for colitis. Patient will be referred to case management for follow-up with surgeon for colonoscopy. Patient reports understanding of care plan need for follow-up or return to the ER. Lab Data 03/17/24 16:54 03/17/24 16:54 Labs/Radiology: Radiology Impressions Abdomen/Pelvis CT 03/17/24 17:10 IMPRESSION: 1. Mild pericolonic fat stranding concerning for colitis. 2. Stable 2 cm left adrenal lesion likely representing an adenoma. COMMENTS: Consistent with the [employer]'s Incidental Findings Committee white paper (J Am Rossana Radiol 2018): Any incidental renal lesion less than 1 cm or classified as too small to characterize, or any incidental cystic renal lesion characterized as simple-appearing, is likely benign. No follow-up imaging is recommended for these lesions per consensus recommendations based on imaging criteria. Laboratory Results WBC 5.01 10^3/uL (3.29-11.43) 03/17/24 16:54 RBC 4.25 10^6/uL (3.85-5.65) 03/17/24 16:54 Hgb 8.90 g/dL (11.27-16.99) L 03/17/24 16:54 Hct 31.3 % (36-47) L 03/17/24 16:54 MCV 73.6 fl (85-98) L 03/17/24 16:54 MCH 20.9 pg (27-33) L 03/17/24 16:54 MCHC 28.4 g/dL (30-55) L 03/17/24 16:54 RDW 17.0 % (12.1-15.1) H 03/17/24 16:54 Plt Count 270 10^3/cmm (157-399) 03/17/24 16:54 MPV 10.5 fL (7.4-10.4) H 03/17/24 16:54 Neut % (Auto) 57.0 % 03/17/24 16:54 Lymph % (Auto) 24.4 % 03/17/24 16:54 [place] % (Auto) 9.0 % 03/17/24 16:54 Eos % (Auto) 9.0 % 03/17/24 16:54 Baso % (Auto) 0.4 % 03/17/24 16:54 Neut # (Auto) 2.86 10^3/uL (1.8-7.7) 03/17/24 16:54 Lymph # (Auto) 1.2 10^3/uL (0.8-4.8) 03/17/24 16:54 [place] # (Auto) 0.5 10^3/uL (0.2-0.9) 03/17/24 16:54 Eos # (Auto) 0.5 10^3/uL (0.0-0.8) 03/17/24 16:54 Baso # (Auto) 0.0 10^3/uL (0.0-0.1) 03/17/24 16:54 Nucleated RBC % (auto) 0 % 03/17/24 16:54 Nucleated RBCs # 0.0 /100WBC 03/17/24 16:54 Sodium 144 mmol/L (136-145) 03/17/24 16:54 Potassium 3.7 mmol/L (3.5-5.1) 03/17/24 16:54 Chloride 108 mmol/L (98-107) H 03/17/24 16:54 Carbon Dioxide 24 mmol/L (22-29) 03/17/24 16:54 Anion Gap 15.7 (5-19) 03/17/24 16:54 BUN 12 mg/dL (6-20) 03/17/24 16:54 Creatinine 0.5 mg/dL (0.5-0.9) 03/17/24 16:54 GFR Calculation 126.3 mL/min (90-130) 03/17/24 16:54 Glucose 108 mg/dL (65-115) 03/17/24 16:54 Calculated Osmolality 298 mOsm/kg (285-295) H 03/17/24 16:54 Calcium 8.7 mg/dL (8.5-10.5) 03/17/24 16:54 Total Bilirubin 0.2 mg/dL (0.15-1.2) 03/17/24 16:54 AST 17 U/L (0-32) 03/17/24 16:54 ALT 8 U/L (0-33) 03/17/24 16:54 Alkaline Phosphatase 83 U/L (35-105) 03/17/24 16:54 Total Protein 6.3 g/dL (6.6-8.7) L 03/17/24 16:54 Albumin 4.1 g/dL (3.5-5.2) 03/17/24 16:54 Globulin 2.2 g/dL (1.3-4.6) 03/17/24 16:54 Lipase 14 U/L (13-60) 03/17/24 16:54 All radiology interpretation(s) finalized by discharge Discharge Plan Discharge Patient Disposition: Home Clinical Impression: Colitis Diarrhea Qualifiers: Diarrhea type: unspecified type Qualified Code(s): R19.7 - Diarrhea, unspecified Condition: Stable Prescriptions: New prednisone 20 mg tablet 20 mg PO DAILY Qty: 5 0RF ciprofloxacin HCl 500 mg tablet 500 mg PO BID Qty: 10 0RF loperamide 2 mg capsule 2 mg PO Q4H PRN (Reason: loose stool) Qty: 20 0RF Rx Instructions: administer after each loose stool ondansetron HCl 4 mg tablet 4 mg PO Q8H PRN (Reason: nausea and vomiting) Qty: 7 0RF No Action tizanidine 2 mg tablet 2 mg PO Q6H PRN (Reason: Spasms) albuterol sulfate 90 mcg/actuation HFA aerosol inhaler 2 puff inhalation Q4H PRN (Reason: shortness of breath or wheezing) Protonix 40 mg tablet,delayed release (DR/EC) 40 mg PO DAILY 42 Days Qty: 46 0RF nitroglycerin [Nitrostat] 0.4 mg Tablet, Sublingual 0.4 mg SUBLINGUAL Q5M PRN (Reason: Chest Pain) Rx Instructions: do not exceed 3 doses per episode Discharge Orders: Discharge ED (Routine); Ordered 03/17/24 Ordered By: Miguel Hobbs Referrals: Braden Owen NP [Primary Care Provider] - Discharge Diet: Usual diet Discharge Activity: Increase activity as tolerated Patient Instructions: Diarrhea - Adult Activity Restrictions/Additional Instructions: Take usual medication as directed. Follow-up with primary care in 1 week for recheck. Case management will contact you regarding follow-up appointment with surgeon for colonoscopy. Coding Level of Care Code ED Technical Support Director for Storm [facility]fe
[2024-03-17 17:07] VITALS: BP 113/67; PULSE 83; TEMP 36.8; O2SAT 100
--- NOTE | 2024-03-17 17:10 | CTR_ITS ---
PROCEDURE INFORMATION: Exam: CT Abdomen And Pelvis With Contrast Exam date and time: 03/17/2024 7:58 PM Age: 59 years old Clinical indication: Abdominal tenderness and other: Diarrhea; Additional info: Abd pain, diarrhea TECHNIQUE: Imaging protocol: Computed tomography of the abdomen and pelvis with contrast. Radiation optimization: All CT scans at this facility use at least one of these dose optimization techniques: automated exposure control; mA and/or kV adjustment per patient size (includes targeted exams where dose is matched to clinical indication); or iterative reconstruction. Contrast material: OMNI 350; Contrast volume: 75 ml; Contrast route: INTRAVENOUS (IV); COMPARISON: CT abdomen pelvis w con* [id number] 07/16/2023 6:05 AM RADIATION DOSE METRICS: Total DLP (mGy-cm): 305 FINDINGS: Liver: Normal. No mass. Gallbladder and biliary ducts: Cholecystectomy. Pancreas: Normal. No ductal dilation. Spleen: Normal. No splenomegaly. Adrenal glands: Unchanged 2 cm left adrenal nodule likely representing an adenoma. Kidneys and ureters: Duplicated renal collecting systems. No hydronephrosis.Small bilateral simple renal cysts, no follow-up needed. Stomach and bowel: Anastomotic sutures within the stomach without adjacent wall thickening or evidence of perforation. There is fecalization of stool suggesting slow transit. Mild pericolonic fat stranding concerning for colitis. No evidence of bowel obstruction. Appendix: No evidence of appendicitis. Intraperitoneal space: No free air. No significant fluid collection. Vasculature: Moderate atherosclerotic calcification. Lymph nodes: Unremarkable. No enlarged lymph nodes. Urinary bladder: Unremarkable as visualized. Reproductive: Hysterectomy. Bones/joints: Unremarkable. No acute fracture. Soft tissues: Unremarkable. CT/CT abdomen pelvis w con* [id number] IMPRESSION: 1. Mild pericolonic fat stranding concerning for colitis. 2. Stable 2 cm left adrenal lesion likely representing an adenoma. COMMENTS: Consistent with the [employer]'s Incidental Findings Committee white paper (J Am Rossana Radiol 2018): Any incidental renal lesion less than 1 cm or classified as too small to characterize, or any incidental cystic renal lesion characterized as simple-appearing, is likely benign. No follow-up imaging is recommended for these lesions per consensus recommendations based on imaging criteria.
[2024-03-17 17:19] LABS: Alanine Aminotransferase 8 U/L (0-33); Albumin Level 4.1 g/dL (3.5-5.2); Alkaline Phosphatase 83 U/L (35-105); Aspartate Amino Transferase 17 U/L (0-32); Blood Urea Nitrogen 12 mg/dL (6-20); Calcium 8.7 mg/dL (8.5-10.5); Carbon Dioxide 24 mmol/L (22-29); Chloride 108 mmol/L (98-107); Creatinine Clr Calc Pharmacy 105.8699; Globulin 2.2 g/dL (1.3-4.6); Glomerular Filtration Rate 126.3 mL/min (90-130); Glucose 108 mg/dL (65-115); Lipase 14 U/L (13-60); Osmolality Calculated 298 mOsm/kg (285-295); Sodium 144 mmol/L (136-145); Total Bilirubin 0.2 mg/dL (0.15-1.2); Total Protein 6.3 g/dL (6.6-8.7)
[2024-03-17 17:34] LABS: Anion Gap 15.7 (5-19); Potassium 3.7 mmol/L (3.5-5.1)
[2024-03-17 20:00] VITALS: BP 139/68; PULSE 98; RESP 18; O2SAT 99
[2024-03-17] MEDS: iohexol 350 mg/mL 500 mL Btl (per mL) IV (20:00)
[2024-03-17] MEDS: ondansetron 2 mg/ML SDV 2 mL 4 MG IVP (20:13)
[2024-03-17 20:25] VITALS: O2SAT 99
[2024-03-17] MEDS: morphine 4 mg/mL SDV 1 mL IVP (20:25)
[2024-03-17 21:00] VITALS: BP 136/72; PULSE 99; RESP 16; O2SAT 98
[2024-03-17 21:02] LABS: Charge for UA Resulting for Rev
[2024-03-17 21:07] LABS: Bilirubin Urine Negative (Negative); Blood Urine Negative (Negative); Glucose Urine UA Negative (Normal); Ketones Urine 2+ (Negative); Leukocyte Esterase Urine Negative (Negative); Nitrate Urine Negative (Negative); Protein Urine Trace (Negative); Urine Appearance Clear (CLEAR); Urine Color Yellow (Yellow)
[2024-03-17 21:13] LABS: Bacteria Urine None Seen /hpf; Hyaline Casts Urine 1.21 /lpf; RBC Urine 0-2 /hpf (0-2); Squamous Epithelial Cell Urine 0-5 /hpf (0-5); WBC Urine 0-5 /hpf (0-5)
[2024-03-17 21:26] VITALS: BP 136/72; PULSE 99; RESP 16; TEMP 36.8; O2SAT 98
--- NOTE | 2024-03-18 01:44 | DCPLANNER ---
Message sent to Gen surgery for follow up on - Chronic Diarrhea
== END 2024-03-17 21:24 | disposition home or self-care (01) ==
PROVIDERS: Emergency Medicine; Emergency Provider Nurse Practitioner Family; PCP Nurse Practitioner Family
DX: K52.9 Noninfective gastroenteritis and colitis, unspecified (principal); E78.5 Hyperlipidemia, unspecified; J44.9 Chronic obstructive pulmonary disease, unspecified; I25.10 Atherosclerotic heart disease of native coronary artery without angina pectoris; I10 Essential (primary) hypertension
CPT/HCPCS: 36415; 74177; 80053; 81003; 81015; 83690; 85025; 96374; 96375; 99285; 99291; J2270; J2405; Q9967

== ENCOUNTER 2024-04-01 08:57 | Outpatient (CLI) | payer MEDICAID, SELFPAY ==
--- NOTE | 2024-04-01 09:02 | MM_ITS ---
WS: [id number] SCREENING DIGITAL TOMOSYNTHESIS MAMMOGRAM WITH CAD HISTORY: SCREENING COMPARISON: 11/27/2022, 01/07/2018 Bilateral CC and MLO with tomosynthesis views submitted. Synthetic mammography reviewed. Computer aid ed detection analyzed. Breast composition: The breasts are heterogeneously dense, which may obscure small masses. No suspici ous masses, microcalcifications or architectural distortion. MM/[place] [id number] IMPRESSION: BI-RADS: 1-Negative FOLLOW UP: 1 Year Follow-up
--- NOTE | 2024-04-01 09:46 | CT_ITS ---
WS: [id number] LDCT LUNG CANCER SCREENING HISTORY: HX OF TOBACCO USE TECHNIQUE: Axial imaging performed from the apices to 1 cm below the costophrenic angles. Coronal and sagittal reformats are submitted with axial MIP series. All CT scans at [facility] use at least one of these dose optimization techniques: automated exposure control; mA and/or kV adjustment per patient size (includes targeted exams where dose is matched to clinical indication); or iterativ e reconstruction. DLP: 43.01 mGy.cm DIvol: Mean CTDIvol: 0.70 (mGy) COMPARISON: 11/27/2022 Diagnostic quality: Satisfactory Lungs: No suspicious pulmonary mass or nodule. No pneumonia. Bilateral perifissural nodules are stabl e and these are typically benign. Largest nodule is 4 mm along the RIGHT fissure. No endobronchial le sions. Heart: Normal size heart with no pericardial effusion.. Other findings: Unchanged LEFT adrenal adenoma. Surgical clips at the GE junction. Prior cholecystect arun. CT/CT lung screening [id number] IMPRESSION: LUNG-RADS: 2-Benign Appearance or Behavior FOLLOW UP: 12 Month: Continue annual screening with LDCT OTHER FINDINGS (S MODIFIER): None.
== END 2024-04-01 08:58 | disposition home or self-care (01) ==
LOC: RAD 08:58
PROVIDERS: PCP Nurse Practitioner Family; Visit Provider Family Medicine
DX: Z12.31 Encounter for screening mammogram for malignant neoplasm of breast (principal); Z12.2 Encounter for screening for malignant neoplasm of respiratory organs; R92.333 Mammographic heterogeneous density, bilateral breasts; R91.8 Other nonspecific abnormal finding of lung field; D35.02 Benign neoplasm of left adrenal gland; Z90.49 Acquired absence of other specified parts of digestive tract
CPT/HCPCS: 71271; 77063; 77067

== ENCOUNTER 2024-05-14 13:01 | Inpatient (IN) | payer MEDICAID, SELFPAY ==
[2024-05-14] VITALS (12 sets, daily range): BP systolic 108–119; BP diastolic 64–86; PULSE 100–125; RESP 16–20; TEMP 36.7–36.8; O2SAT 98–100; BMI 19.3; BMI 16.5
--- NOTE | 2024-05-14 13:16 | XRR_ITS ---
PROCEDURE INFORMATION: Exam: XR Abdomen Exam date and time: 05/14/2024 1:43 PM Age: 59 years old Clinical indication: Abdominal tenderness and bloating and constipation; Patient HX: Abdominal distention; N/v; HX sbo; Additional info: Abdominal pain; Distention; N/v; HX sbo TECHNIQUE: Imaging protocol: Radiologic exam of the abdomen. Views: 2 Views. Upright and supine views. COMPARISON: CT abdomen pelvis w con* [id number] 03/17/2024 7:58 PM FINDINGS: Gastrointestinal tract: There are multiple loops of severely distended small bowel in the right side of the abdomen and pelvis. A large amount of stool is noted throughout the entire colon. Intraperitoneal space: Normal. No free air. Bones/joints: Unremarkable for age. XR/XR acute abdomen series [id number] IMPRESSION: Prominent small bowel distension with severe constipation. This could represent small bowel obstruction.
[2024-05-14 13:55] LABS: Basophils % 0.2 %; Eosinophils % 0.1 %; Hematocrit 37.7 % (36-47); Lymphocytes # 0.8 10^3/uL (0.8-4.8); Lymphocytes % 4.4 %; Mean Corpuscular HGB Conc 28.1 g/dL (30-55); Mean Corpuscular Hemoglobin 20.3 pg (27-33); Mean Corpuscular Volume 72.1 fl (85-98); Mean Platelet Volume 10.2 fL (7.4-10.4); Monocytes # 0.6 10^3/uL (0.2-0.9); Monocytes % 3.3 %; Neutrophils # 17.36 10^3/uL (1.8-7.7); Neutrophils % 91.6 %; Nucleated Red Blood Cells % 0 %; Platelet Count 439 10^3/cmm (157-399); Red Blood Count 5.23 10^6/uL (3.85-5.65); White Blood Count 18.94 10^3/uL (3.29-11.43)
[2024-05-14] MEDS: morphine 4 mg/mL SDV 1 mL 2 MG IVP ×4 (13:55→22:00)
[2024-05-14] MEDS: ondansetron 2 mg/ML SDV 2 mL 4 MG IVP ×2 (13:55→20:28)
[2024-05-14 14:08] LABS: Alanine Aminotransferase 12 U/L (0-33); Albumin Level 4.7 g/dL (3.5-5.2); Alkaline Phosphatase 125 U/L (35-105); Anion Gap 18.3 (5-19); Aspartate Amino Transferase 19 U/L (0-32); Blood Urea Nitrogen 14 mg/dL (6-20); Calcium 9.2 mg/dL (8.5-10.5); Carbon Dioxide 22 mmol/L (22-29); Chloride 98 mmol/L (98-107); Creatinine Clr Calc Pharmacy 78.3475; Globulin 3.1 g/dL (1.3-4.6); Glomerular Filtration Rate 85.6 mL/min (90-130); Glucose 166 mg/dL (65-115); Lipase 13 U/L (13-60); Osmolality Calculated 284 mOsm/kg (285-295); Potassium 3.3 mmol/L (3.5-5.1); Sodium 135 mmol/L (136-145); Total Bilirubin 0.3 mg/dL (0.15-1.2); Total Protein 7.8 g/dL (6.6-8.7)
--- NOTE | 2024-05-14 14:23 | CTR_ITS ---
PROCEDURE INFORMATION: Exam: CT Abdomen And Pelvis Without Contrast Exam date and time: 05/14/2024 2:33 PM Age: 59 years old Clinical indication: Abdominal tenderness and bloating; Additional info: Sbo TECHNIQUE: Imaging protocol: Computed tomography of the abdomen and pelvis without contrast. Radiation optimization: All CT scans at this facility use at least one of these dose optimization techniques: automated exposure control; mA and/or kV adjustment per patient size (includes targeted exams where dose is matched to clinical indication); or iterative reconstruction. COMPARISON: CT abdomen pelvis w con* [id number] 03/17/2024 7:58 PM RADIATION DOSE METRICS: Total DLP (mGy-cm): 300.2 FINDINGS: Lungs: Lung bases are clear. No pleural effusion. Liver: Normal. No mass. Gallbladder and biliary ducts: The gallbladder has been resected. Pancreas: Normal. No ductal dilation. Spleen: Normal. No splenomegaly. Adrenal glands: Normal. No mass. Kidneys and ureters: Normal. No hydronephrosis. Stomach and bowel: There is evidence of previous gastric surgery. There is a large amount of solid stool throughout the entire colon. There are multiple segments of severely distended small bowel centered within the right lower quadrant. There is central mesenteric twisting here. The distal portion of the ileum is decompressed. Appendix: No evidence of appendicitis. Intraperitoneal space: See Stomach and bowel finding. Vasculature: Unremarkable. No abdominal aortic aneurysm. Lymph nodes: Unremarkable. No enlarged lymph nodes. Urinary bladder: Unremarkable as visualized. Reproductive: Unremarkable as visualized. Bones/joints: Unremarkable. No acute fracture. Soft tissues: Unremarkable. CT/CT abdomen pelvis wo con [id number] IMPRESSION: Mechanical small bowel obstruction of uncertain etiology. There is mesenteric twisting in the right lower quadrant suggesting the possibility of small bowel volvulus
--- NOTE | 2024-05-14 15:43 | XRR_ITS ---
PROCEDURE INFORMATION: Exam: XR Chest Exam date and time: 05/14/2024 3:47 PM Age: 59 years old Clinical indication: Device placement; Ng tube; Additional info: Ng placement TECHNIQUE: Imaging protocol: Radiologic exam of the chest. Views: 1 view. COMPARISON: CT lung screening [id number] 04/01/2024 10:34 AM FINDINGS: Tubes, catheters and devices: The feeding tube is in good position within the stomach. Lungs: Unremarkable. No consolidation or mass. Pleural spaces: Unremarkable. No pleural effusion. No pneumothorax. Heart/Mediastinum: Unremarkable. No cardiomegaly. Bones/joints: Unremarkable. XR/XR chest 1V portable [id number] IMPRESSION: Good enteric feeding tube positioning
[2024-05-14 15:46] LABS: Bilirubin Urine Negative (Negative); Blood Urine Negative (Negative); Glucose Urine UA Negative (Normal); Ketones Urine Trace (Negative); Leukocyte Esterase Urine Negative (Negative); Nitrate Urine Negative (Negative); Protein Urine 1+ (Negative); Urine Appearance Clear (CLEAR); Urine Color Dark Yellow (Yellow); pH Urine 5.5 (5-7)
[2024-05-14 15:48] LABS: Add Urine Microscopic? YES; Hyaline Casts Urine 15.28 /lpf; RBC Urine 0-2 /hpf (0-2); Squamous Epithelial Cell Urine 0-5 /hpf (0-5); WBC Urine 0-5 /hpf (0-5)
[2024-05-14 16:00] LABS: Bacteria Urine 1+ /hpf; Mucus Urine 3+ /hpf; UA Slide Review UA Slide Review Perf
--- NOTE | 2024-05-14 16:39 | ED_ITS ---
HPI - Abdominal Pain 2 General: Chief Complaint: Abdominal Pain Stated Complaint: abd pain Time Seen by Provider: 05/14/24 13:06 History of Present Illness: This patient is a 59-year-old white female who presents to the ER complaining of diffuse abdominal pain. She states this started at 9 AM this morning. She has had some nausea and vomiting. She does feel constipated. No diarrhea. No fever. Patient states she feels like she has another bowel obstruction. She does have some malodorous urine as well. Associated Symptoms: Reports constipation, nausea and vomiting Related Data Home Medications Medication Instructions Recorded Confirmed tizanidine 2 mg tablet 2 mg PO Q6H PRN Spasms 10/12/19 03/05/24 albuterol sulfate 90 mcg/actuation 2 puff inhalation Q4H PRN 03/20/22 03/05/24 aerosol inhaler shortness of breath or wheezing nitroglycerin 0.4 mg sublingual 0.4 mg sublingual Q5M PRN Chest 07/16/23 03/05/24 tablet (Nitrostat) Pain Previous Rx's Medication Instructions Recorded ciprofloxacin HCl 500 mg tablet 500 mg PO BID #10 tabs 03/17/24 loperamide 2 mg capsule 2 mg PO Q4H PRN loose stool #20 03/17/24 caps ondansetron HCl 4 mg tablet 4 mg PO Q8H PRN nausea and 03/17/24 vomiting #7 tabs prednisone 20 mg tablet 20 mg PO DAILY #5 tabs 03/17/24 Allergies Allergy/AdvReac Type Severity Reaction Status Date / Time diphenhydramine Allergy Unknown Verified 03/17/24 17:13 [From Benadryl] hydromorphone [From Dilaudid] Allergy ADR-Vomitin Verified 03/17/24 17:13 g ibuprofen [From Motrin] Allergy ALGY-Anaphy Verified 03/17/24 17:13 laxis Penicillins Allergy ALGY-Anaphy Verified 03/17/24 17:13 laxis tramadol Allergy Unknown Verified 03/17/24 17:13 Review of Systems 2 General: Reports: 10 or more systems reviewed and unremarkable except in HPI and below GI: Reports: abdominal pain, nausea, vomiting and constipation PFSH ED 2 PFSH: Medical History (Updated 03/25/24 @ 00:01 by CARMEN Echeverria) Microcytic anemia Leukocytosis Small bowel obstruction Dyslipidemia Nondisplaced fracture of fifth right metatarsal bone Fracture of fourth metatarsal bone of right foot SOB (shortness of breath) Hx of COPD, 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,quit in 2000 Metatarsal bone fracture Dysphagia Weight loss Peripheral neuropathy Chest pain Abnormal EKG Atherosclerotic heart disease of [place] coronary artery with other forms of angina pectoris GERD (gastroesophageal reflux disease) Benign essential hypertension with target blood pressure below 140/90 Bradycardia AV block, 2nd degree Recurrent vomiting HTN (hypertension) Nausea and vomiting Elevated blood pressure reading Unstable angina Chest pain Palpitations Chest pain Emphysema of lung Quit in 2019 Chronic migraine without aura, intractable, with status migrainosus Surgical History (Updated 03/05/24 @ 00:15 by Chon Lama MD) Status post colon resection H/O colonoscopy History of surgery ULCERS AND PART OF STOMACH REMOVED History of colon resection History of hysterectomy History of appendectomy History of cholecystectomy Family History Mother CAD (coronary artery disease), Onset Age: 50 Cancer Lung disease Stroke Denies family history of Diabetes Clotting disorder Dementia Chronic kidney disease (CKD) Suicide Anesthesia complication Bleeding disorder Social History Smoking and tobacco/nicotine status: unknown if used tobacco/nicotine Alcohol intake: former Substance/Drug Use: never Physical Exam 2 Const: COMMON NORMALS: patient oriented x3 and no limitations GENERAL APPEARANCE: cooperative OTHER: Moderate disress due to abdominal pain HENMT: COMMON NORMALS: normocephalic, atraumatic, Normal nasal mucous membranes and turbinates present, moist oral mucous membranes and oropharynx normal HEAD & SCALP: normal to inspection, normocephalic and atraumatic F NATHALIA & SINUS: normal facial exam NOSE: Normal nasal mucous membranes and turbinates present Eye: COMMON NORMALS: Equal, round and reactive pupils present, EOMs intact bilaterally and conjunctivae normal GENERAL EYE: appearance normal, both eyes and all related structures CONJUNCTIVA: Yes conjunctivae normal PUPIL: Yes Equal, round and reactive pupils present Neck/C-Spine: COMMON NORMALS: supple and no JVD Chest: COMMONS NORMALS: normal inspection of the chest Resp: COMMON NORMALS: normal respiratory effort and clear to auscultation bilaterally AUSCULTATION: clear to auscultation bilaterally Cardio: COMMON NORMALS: no JVD, regular rate, regular rhythm, No gallops present (Cardio), No murmurs present (Cardio) and No rub (Cardio) RATE: r egular rate RHYTHM: regular rhythm GI: INSPECTION: Yes abdominal distension AUSCULTATION: Yes normoactive bowel sounds PALPATION: Yes Tenderness to palpation present (GI) : COMMON NORMALS: Yes no CVA tenderness BLADDER/KIDNEY EXAM: Yes no CVA tenderness Back/Pelvis: COMMON NORMALS: no CVA tenderness and thoracic and lumbar spine normal to inspection Extremity: COMMON NORMALS: normal to inspection Neuro: COMMON NORMALS: patient oriented x3 and CN's II-XII intact bilaterally Psych: COMMON NORMALS: mental status grossly normal, Normal thought process present and cooperative THOUGHT PROCESS: Normal thought process present Skin: COMMON NORMALS: no rashes or lesions noted, turgor normal and no jaundice GENERAL SKIN EXAM: no rashes or lesions noted and turgor normal Course 2 Vital Signs: Vital signs: Vital Signs Temperature 98.0 F 05/14/24 13:02 Pulse Rate 112 H 05/14/24 15:37 Respiratory Rate 18 05/14/24 15:26 Blood Pressure 116/79 05/14/24 15:37 Pulse Oximetry 98 05/14/24 15:37 Oxygen Delivery Me thod Room Air 05/14/24 15:37 MDM - Abdominal Pain Medical Decision Making CBC reveals a white blood cell count of 19.0. Hemoglobin 10.6. CMP revealed a potassium of 3.3. Blood sugar 166. Lipase normal at 13. Urine analysis reveals some white blood cells and bacteria. Chest x-ray was normal. Abdominal flatplate and upright films revealed dilated loops of bowel with air-fluid levels consistent with small bowel obstruction. CT scan of the abdomen pelvis confirms small bowel obstruction appears to be originating in the right lower quadrant. We did place an NG tube. Patient received morphine for her pain. I discussed the case with general surgeon on-call Dr. Pruitt. He did accept the patient. Patient will be admitted to the [facility] floor. She is stable. Lab Data 05/14/24 13:43 05/14/24 13:43 Labs/Radiology: Radiology Impressions Chest/Abdomen X-ray 05/14/24 13:16 IMPRESSION: Prominent small bowel distension with severe constipation. This could represent small bowel obstruction. Abdomen/Pelvis CT 05/14/24 14:23 IMPRESSION: Mechanical small bowel obstruction of uncertain etiology. There is mesenteric twisting in the right lower quadrant suggesting the possibility of small bowel volvulus Chest X-Ray 05/14/24 15:43 IMPRESSION: Good enteric feeding tube positioning Laboratory Results WBC 18.94 10^3/uL (3.29-11.43) H 05/14/24 13:43 RBC 5.23 10^6/uL (3.85-5.65) 05/14/24 13:43 Hgb 10.60 g/dL (11.27-16.99) L 05/14/24 13:43 Hct 37.7 % (36-47) 05/14/24 13:43 MCV 72.1 fl (85-98) L 05/14/24 13:43 MCH 20.3 pg (27-33) L 05/14/24 13:43 MCHC 28.1 g/dL (30-55) L 05/14/24 13:43 RDW 17.0 % (12.1-15.1) H 05/14/24 13:43 Plt Count 439 10^3/cmm (157-399) H 05/14/24 13:43 MPV 10.2 fL (7.4-10.4) 05/14/24 13:43 Neut % (Auto) 91.6 % 05/14/24 13:43 Lymph % (Auto) 4.4 % 05/14/24 13:43 [place] % (Auto) 3.3 % 05/14/24 13:43 Eos % (Auto) 0.1 % 05/14/24 13:43 Baso % (Auto) 0.2 % 05/14/24 13:43 Neut # (Auto) 17.36 10^3/uL (1.8-7.7) H 05/14/24 13:43 Lymph # (Auto) 0.8 10^3/uL (0.8-4.8) 05/14/24 13:43 [place] # (Auto) 0.6 10^3/uL (0.2-0.9) 05/14/24 13:43 Eos # (Auto) 0.0 10^3/uL (0.0-0.8) 05/14/24 13:43 Baso # (Auto) 0.0 10^3/uL (0.0-0.1) 05/14/24 13:43 Nucleated RBC % (auto) 0 % 05/14/24 13:43 Nucleated RBCs # 0.0 /100WBC 05/14/24 13:43 Sodium 135 mmol/L (136-145) L 05/14/24 13:43 Potassium 3.3 mmol/L (3.5-5.1) L 05/14/24 13:43 Chloride 98 mmol/L (98-107) 05/14/24 13:43 Carbon Dioxide 22 mmol/L (22-29) 05/14/24 13:43 Anion Gap 18.3 (5-19) 05/14/24 13:43 BUN 14 mg/dL (6-20) 05/14/24 13:43 Creatinine 0.7 mg/dL (0.5-0.9) 05/14/24 13:43 GFR Calculation 85.6 mL/min (90-130) L 05/14/24 13:43 Glucose 166 mg/dL (65-115) H 05/14/24 13:43 Calculated Osmolality 284 mOsm/kg (285-295) L 05/14/24 13:43 Calcium 9.2 mg/dL (8.5-10.5) 05/14/24 13:43 Total Bilirubin 0.3 mg/dL (0.15-1.2) 05/14/24 13:43 AST 19 U/L (0-32) 05/14/24 13:43 ALT 12 U/L (0-33) 05/14/24 13:43 Alkaline Phosphatase 125 U/L (35-105) H 05/14/24 13:43 Total Protein 7.8 g/dL (6.6-8.7) 05/14/24 13:43 Albumin 4.7 g/dL (3.5-5.2) 05/14/24 13:43 Globulin 3.1 g/dL (1.3-4.6) 05/14/24 13:43 Lipase 13 U/L (13-60) 05/14/24 13:43 Urine Color Dark yellow (Yellow) A 05/14/24 15:37 Urine Appearance Clear (CLEAR) 05/14/24 15:37 Urine pH 5.5 (5-7) 05/14/24 15:37 Ur Specific [place] 1.030 (1.005-1.030) 05/14/24 15:37 Urine Protein 1+ (Negative) A 05/14/24 15:37 Urine Glucose (UA) Negative (Normal) 05/14/24 15:37 Urine Ketones Trace (Negative) 05/14/24 15:37 Urine Blood Negative (Negative) 05/14/24 15:37 Urine Nitrate Negative (Negative) 05/14/24 15:37 Urine Bilirubin Negative (Negative) 05/14/24 15:37 Urine Urobilinogen 1.0 mg/dL (Negative) 05/14/24 15:37 Ur Leukocyte Esterase Negative (Negative) 05/14/24 15:37 Urine RBC 0-2 /hpf (0-2) 05/14/24 15:37 Urine WBC 0-5 /hpf (0-5) 05/14/24 15:37 Ur Squamous Epith Cells 0-5 /hpf (0-5) 05/14/24 15:37 Amorphous Sediment Not Reportable 05/14/24 15:37 Urine Bacteria 1+ /hpf (NONE) H 05/14/24 15:37 Hyaline Casts 15.28 /lpf 05/14/24 15:37 Urine Mucus 3+ /hpf 05/14/24 15:37 All radiology interpretation(s) finalized by discharge Discharge Plan Discharge Condition: Stable Prescriptions: No Action tizanidine 2 mg tablet 2 mg PO Q6H PRN (Reason: Spasms) albuterol sulfate 90 mcg/actuation HFA aerosol inhaler 2 puff inhalation Q4H PRN (Reason: shortness of breath or wheezing) nitroglycerin [Nitrostat] 0.4 mg Tablet, Sublingual 0.4 mg SUBLINGUAL Q5M PRN (Reason: Chest Pain) Rx Instructions: do not exceed 3 doses per episode prednisone 20 mg tablet 20 mg PO DAILY Qty: 5 0RF ciprofloxacin HCl 500 mg tablet 500 mg PO BID Qty: 10 0RF loperamide 2 mg capsule 2 mg PO Q4H PRN (Reason: loose stool) Qty: 20 0RF Rx Instructions: administer after each loose stool ondansetron HCl 4 mg tablet 4 mg PO Q8H PRN (Reason: nausea and vomiting) Qty: 7 0RF Referrals: Brayden,Braden, [facility] [Primary Care Provider] - Coding Level of Care Code ED Swimming Pool Cleaner for Storm Wolfe
[2024-05-14 16:40] LABS: Lactic Sepsis W/Reflex 2.1 mmol/L (0.5-2.2)
--- NOTE | 2024-05-14 17:06 | P.HP_ITS ---
Providers/Chief Complaint 2 Primary Care Provider: Braden Owen NP Chief Complaint: abd pain History of Present Illness Radha Maguire is a 59 year old female who presents in the emergency department for abdominal pain nausea and vomiting over the last 24 hours. Patient has history of previous episode of a small bowel obstruction and has history of multiple intra-abdominal surgeries including 2 gastric resection for perforated ulcer, bowel and colon resection and hysterectomy. Last bowel movement was 2 days ago the last time she passed gas was around that time. Review of Systems 2 General: Reports: 10 or more systems reviewed and unremarkable except in HPI and below Medications/Allergies Home Medications Medication Instructions Recorded Confirmed Last Taken Type tizanidine 2 mg tablet 2 mg PO Q6H PRN Spasms 10/12/19 03/05/24 Unknown History albuterol sulfate 90 mcg/actuation 2 puff inhalation Q4H PRN 03/20/22 03/05/24 Unknown History aerosol inhaler shortness of breath or wheezing nitroglycerin 0.4 mg sublingual 0.4 mg sublingual Q5M PRN Chest 07/16/23 03/05/24 Unknown History tablet (Nitrostat) Pain ciprofloxacin HCl 500 mg tablet 500 mg PO BID #10 tabs 03/17/24 Unknown Rx loperamide 2 mg capsule 2 mg PO Q4H PRN loose stool #20 03/17/24 Unknown Rx caps ondansetron HCl 4 mg tablet 4 mg PO Q8H PRN nausea and 03/17/24 Unknown Rx vomiting #7 tabs prednisone 20 mg tablet 20 mg PO DAILY #5 tabs 03/17/24 Unknown Rx Allergies Allergy/AdvReac Type Severity Reaction Status Date / Time diphenhydramine Allergy Unknown Verified 03/17/24 17:13 [From Benadryl] hydromorphone [From Dilaudid] Allergy ADR-Vomitin Verified 03/17/24 17:13 g ibuprofen [From Motrin] Allergy ALGY-Anaphy Verified 03/17/24 17:13 laxis Penicillins Allergy ALGY-Anaphy Verified 03/17/24 17:13 laxis tramadol Allergy Unknown Verified 03/17/24 17:13 PFSH Acute 2 PFSH: Medical History (Updated 05/14/24 @ 17:12 by Yovani Pruitt MD) Small bowel obstruction Microcytic anemia Leukocytosis Dyslipidemia Nondisplaced fracture of fifth right metatarsal bone Fracture of fourth metatarsal bone of right foot SOB (shortness of breath) Hx of COPD, 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,quit in 2000 Metatarsal bone fracture Dysphagia Weight loss Peripheral neuropathy Chest pain Abnormal EKG Atherosclerotic heart disease of [place] coronary artery with other forms of angina pectoris GERD (gastroesophageal reflux disease) Benign essential hypertension with target blood pressure below 140/90 Bradycardia AV block, 2nd degree Recurrent vomiting HTN (hypertension) Nausea and vomiting Elevated blood pressure reading Unstable angina Chest pain Palpitations Chest pain Emphysema of lung Quit in 2019 Chronic migraine without aura, intractable, with status migrainosus Surgical History (Updated 03/05/24 @ 00:15 by Chon Lama MD) Status post colon resection H/O colonoscopy History of surgery ULCERS AND PART OF STOMACH REMOVED History of colon resection History of hysterectomy History of appendectomy History of cholecystectomy Family History Mother CAD (coronary artery disease), Onset Age: 50 Cancer Lung disease Stroke Denies family history of Diabetes Clotting disorder Dementia Chronic kidney disease (CKD) Suicide Anesthesia complication Bleeding disorder Social History Smoking and tobacco/nicotine status: unknown if used tobacco/nicotine Alcohol intake: former Substance/Drug Use: never Vitals/I&O/Wt Last Vital Signs Temp 98.0 F 05/14/24 13:02 Pulse 112 H 05/14/24 15:37 Resp 18 05/14/24 15:26 BP 116/79 05/14/24 15:37 Pulse Ox 98 05/14/24 15:37 O2 Del Method Room Air 05/14/24 15:37 Weight last 48 hrs Weight 120 lb Physical Exam 2 GI: OTHER: Abdomen is mildly distended, somehow tender in the lower abdomen with no evidence of peritonitis. Data 05/14/24 13:43 05/14/24 13:43 A&P Assessment and plan (1) Small bowel obstruction: Plan This is a 59-year-old female who presents to the hospital with a small bowel obstruction. Imaging showed evidence of a small bowel obstruction with a possible transition point in the right lower abdomen, radiologic interpretation also talks about the swirling of the mesentery concerning for the possibility of volvulus, this is less likely in my opinion as patient had similar findings in July 2023 when she presented with an episode of SBO which was able to manage with conservative therapy. Will admit patient to the hospital we will place an NG tube for decompression of the abdomen we will start her on antibiotics for prevention of bacterial translocation, I will evaluate her on a daily basis and we will follow-up the labs and vital signs, in the case of any clinical deterioration we will proceed to the OR. I have explained to the patient that surgical intervention in her case is extremely risky as she has history of many intra-abdominal surgeries which most likely have resulted in adhesions that have caused her prior episodes of SBO. Patient shows understanding. -NG tube to low intermittent suction -Pain control -IV fluids -Daily labs Attestations 2 Medical Necessity Statement*: Patient will require 2 to 4 days of hospital stay for a small bowel obstruction. Coding Level of Care Code Acute Code for [facility] Diagnoses Small bowel obstruction K56.609
--- NOTE | 2024-05-14 17:44 | PC.NURSE ---
PER VERBAL ORDER FROM DR. MACK, ORDER AND ADMIN MORPHINE 2MG IVP ONCE.
[2024-05-14 18:11] LABS: Reflex Lactate Order REFLEX LACTIC ORDERD
[2024-05-14] MEDS: cefTRIAXone 1,000 mg SDV 1000 MG IVP (18:19)
[2024-05-14] MEDS: lactated ringers 1,000 ML 100 ML IV (21:19)
[2024-05-14] MEDS: pantoprazole 40 mg SDV IVP (21:19)
[2024-05-14] MEDS: metroNIDAZOLE IV 500 MG/100 ML PREMIX 100 MG IV (21:19)
[2024-05-14] MEDS: ciprofloxacin 400 MG/200 ML PREMIX 200 MG IV (22:17)
[2024-05-15] VITALS (12 sets, daily range): BP systolic 102–152; BP diastolic 67–82; PULSE 83–98; RESP 16–20; TEMP 36.7–37.6; O2SAT 94–99
[2024-05-15] MEDS: morphine 4 mg/mL SDV 1 mL 2 MG IVP ×5 (02:06→20:39)
[2024-05-15 05:19] LABS: Basophils % 0.2 %; Eosinophils % 0.2 %; Hematocrit 31.6 % (36-47); Lymphocytes % 15.8 %; Mean Corpuscular HGB Conc 26.6 g/dL (30-55); Mean Corpuscular Hemoglobin 20.1 pg (27-33); Mean Corpuscular Volume 75.6 fl (85-98); Monocytes # 0.6 10^3/uL (0.2-0.9); Monocytes % 9.9 %; Neutrophils # 4.77 10^3/uL (1.8-7.7); Neutrophils % 73.7 %; Nucleated Red Blood Cells % 0 %; Platelet Count 288 10^3/cmm (157-399); Red Blood Count 4.18 10^6/uL (3.85-5.65); White Blood Count 6.46 10^3/uL (3.29-11.43)
[2024-05-15 05:37] LABS: Anion Gap 17.2 (5-19); Blood Urea Nitrogen 11 mg/dL (6-20); Carbon Dioxide 21 mmol/L (22-29); Chloride 103 mmol/L (98-107); Creatinine Clr Calc Pharmacy 105.9777; Glomerular Filtration Rate 126.3 mL/min (90-130); Glucose 127 mg/dL (65-115); Magnesium 2.1 mg/dL (1.7-2.3); Osmolality Calculated 285 mOsm/kg (285-295); Phosphorus 2.7 mg/dL (2.5-4.5); Potassium 4.2 mmol/L (3.5-5.1); Sodium 137 mmol/L (136-145)
[2024-05-15 05:38] LABS: Lactic Sepsis W/Reflex 1.3 mmol/L (0.5-2.2)
[2024-05-15] MEDS: metroNIDAZOLE IV 500 MG/100 ML PREMIX 100 MG IV ×3 (05:41→22:06)
[2024-05-15] MEDS: lactated ringers 1,000 ML 100 ML IV ×2 (06:23→16:59)
--- NOTE | 2024-05-15 08:10 | XRR_ITS ---
PROCEDURE INFORMATION: Exam: XR Chest Exam date and time: 05/15/2024 9:10 AM Age: 59 years old Clinical indication: Device placement; Ng tube; TECHNIQUE: Imaging protocol: Radiologic exam of the chest. Views: 1 view. COMPARISON: CR (CHEST, ) 05/14/2024 3:47 PM FINDINGS: Tubes, catheters and devices: Distal G-tube positioned in the left upper quadrant abdomen in the expected location of the stomach. Lungs: Unremarkable. No consolidation. Pleural spaces: Possible small right pneumothorax versus skin fold. Heart/Mediastinum: Unremarkable. No cardiomegaly. Bones/joints: Unremarkable. Intraperitoneal space: There are multiple surgical clips in the upper abdomen. XR/XR chest 1V portable [id number] IMPRESSION: 1. Possible small right pneumothorax versus skin fold. Decubitus views versus CT scan of the thorax recommended for further evaluation as clinically warranted. 2. Distal G-tube positioned in the left upper quadrant abdomen in the expected location of the stomach.
--- NOTE | 2024-05-15 08:11 | P.PN_ITS ---
Subjective 2 Subjective: All day 1 after admission for small bowel obstruction. Patient is doing okay, still having some mild abdominal pain in the mesogastrium, she has an NG tube that she did have some emesis, apparently of undigested food. Has not passed gas yet. Vitals/I&O/Wt Last Vital Signs Temp 98.9 F 05/15/24 04:00 Pulse 92 05/15/24 04:00 Resp 20 H 05/15/24 06:22 BP 126/75 05/15/24 04:00 Pulse Ox 94 05/15/24 06:22 O2 Del Method Room Air 05/15/24 04:00 05/14/24 05/15/24 05/15/24 22:59 06:59 14:59 Intake Total 100 / 100 1206.667 / 1306.667 Output Total 200 / 200 Balance -100 / -100 1206.667 / 1106.667 Weight last 48 hrs Weight 109 lb 5 oz Weight 102 lb 1.6 oz Weight 120 lb Physical Exam 2 GI: OTHER: Abdomen is soft, minimally tender to palpation, minimally distended. No peritoneal signs. Data 05/15/24 05:07 05/15/24 05:07 A&P Assessment and plan (1) Small bowel obstruction: Plan Patient has been stable after admission for small bowel obstruction. NG tube output has been minimal, she did have 1 episode of emesis of undigested food earlier today, this likely reflects that the contents of the stomach are more solid in nature and therefore not being able quitted by the NG tube. I flushed the NG tube with some air this morning. I Asked the patient to ambulate as much as possible to facilitate the GI motility. Her labs are good this morning her white count went back up to the way down to 6.45 lactate level is 1.3. She does not have worsening of abdominal pain or other concerning features. Her vitals have been stable, tachycardia has improved. I would like to attempt at least 24 hours of decompression before proceeding with a Gastrografin trial. I will plan to do the Gastrografin trial either this afternoon or tomorrow depending on patient clinical status. I will obtain repeat chest x-ray to verify position of the NG tube. Attestations 2 Medical Necessity Statement*: Patient will require 2 to 3 days of hospital stay for management of small bowel obstruction Coding Level of Care Code Acute Code for Chg Fwd Diagnoses Small bowel obstruction K56.609
[2024-05-15] MEDS: ciprofloxacin 400 MG/200 ML PREMIX 200 MG IV ×2 (09:16→20:39)
--- NOTE | 2024-05-15 10:48 | XRR_ITS ---
PROCEDURE INFORMATION: Exam: XR Chest Exam date and time: 05/15/2024 1:23 PM Age: 59 years old Clinical indication: Abnormal findings; Abnormal radiologic exam of lung or chest; Patient HX: Cough; Possible right pneumothorax; Please compare to XR done this am TECHNIQUE: Imaging protocol: Radiologic exam of the chest. Views: 3 views. COMPARISON: CR (CHEST, ) 05/15/2024 9:10 AM FINDINGS: Tubes, catheters and devices: The feeding tube is in good position within the stomach. Lungs: Unremarkable. No consolidation or mass. Pleural spaces: Unremarkable. No pleural effusion. No pneumothorax. Heart/Mediastinum: Unremarkable. No cardiomegaly. Bones/joints: Unremarkable. XR/XR chest RT decubitus [id number] IMPRESSION: No evidence of pneumothorax
--- NOTE | 2024-05-15 10:48 | XRR_ITS ---
PROCEDURE INFORMATION: Exam: XR Chest Exam date and time: 05/15/2024 1:34 PM Age: 59 years old Clinical indication: Abnormal findings; Abnormal radiologic exam of lung or chest; Patient HX: Cough; Possible right pneumothorax; Please compare to XR done this am TECHNIQUE: Imaging protocol: Radiologic exam of the chest. Views: 3 views. COMPARISON: CR XR chest RT decubitus [id number] 05/15/2024 1:23 PM FINDINGS: Tubes, catheters and devices: The feeding tube is in good position within the stomach. Lungs: Unremarkable. No consolidation or mass. Pleural spaces: Unremarkable. No pleural effusion. No pneumothorax. Heart/Mediastinum: Unremarkable. No cardiomegaly. Bones/joints: Unremarkable. XR/XR chest LT decubitus [id number] IMPRESSION: No pneumothorax noted
[2024-05-15] MEDS: pantoprazole 40 mg SDV IVP (20:40)
[2024-05-16] VITALS (7 sets, daily range): BP systolic 102–155; BP diastolic 62–71; PULSE 88–105; RESP 16–19; TEMP 36.8–37.2; O2SAT 96–100
[2024-05-16] MEDS: lactated ringers 1,000 ML 100 ML IV ×3 (01:45→23:11)
--- NOTE | 2024-05-16 02:07 | PC.NURSE ---
This nurse entered the patient's room and found her sitting on the bedside commode. The patient exclaimed Oh, oh, oh! and this nurse watched the NG tube fall to the floor. While preparing to insert new NG tube, patient passed gassed. She stated she feels much better without the NG tube in place, has no nausea, and would prefer to leave the tube out. On assessment the patient had active, almost hyperactive bowel sounds in all four quadrants. Messaged Dr. Martin via Piehole at [phone] to see if he would like NG tube replaced, or other orders at this time.
[2024-05-16] MEDS: metroNIDAZOLE IV 500 MG/100 ML PREMIX 100 MG IV ×3 (05:31→23:11)
[2024-05-16 07:49] LABS: Basophils % 0.2 %; Eosinophils # 0.1 10^3/uL (0.0-0.8); Eosinophils % 1.4 %; Hematocrit 26.5 % (36-47); Lymphocytes # 1.2 10^3/uL (0.8-4.8); Mean Corpuscular HGB Conc 26.8 g/dL (30-55); Mean Corpuscular Hemoglobin 20.1 pg (27-33); Mean Corpuscular Volume 75.1 fl (85-98); Mean Platelet Volume 9.9 fL (7.4-10.4); Monocytes # 0.7 10^3/uL (0.2-0.9); Monocytes % 11.7 %; Neutrophils # 3.71 10^3/uL (1.8-7.7); Neutrophils % 65.5 %; Nucleated Red Blood Cells % 0 %; Platelet Count 219 10^3/cmm (157-399); Red Blood Count 3.53 10^6/uL (3.85-5.65); Red Cell Distribution Width 16.9 % (12.1-15.1); White Blood Count 5.66 10^3/uL (3.29-11.43)
[2024-05-16 08:08] LABS: Anion Gap 12.2 (5-19); Blood Urea Nitrogen 5 mg/dL (6-20); Calcium 7.5 mg/dL (8.5-10.5); Carbon Dioxide 25 mmol/L (22-29); Chloride 106 mmol/L (98-107); Creatinine Clr Calc Pharmacy 108.7975; Glomerular Filtration Rate 126.3 mL/min (90-130); Glucose 97 mg/dL (65-115); Magnesium 1.9 mg/dL (1.7-2.3); Osmolality Calculated 285 mOsm/kg (285-295); Phosphorus 2.4 mg/dL (2.5-4.5); Potassium 4.2 mmol/L (3.5-5.1); Sodium 139 mmol/L (136-145)
[2024-05-16 08:11] LABS: Lactate (Lactic Acid level) 0.6 mmol/L (0.5-2.2)
--- NOTE | 2024-05-16 08:21 | P.PN_ITS ---
Subjective 2 Subjective: 59-year-old female admitted with SBO. O vernight NG tube got dislodged. Overall output before he got dislodged was about 90 cc. Patient is doing well this morning has been passing gas, explained that she has been feeling much better. Vitals/I&O/Wt Last Vital Signs Temp 98.9 F 05/16/24 07:44 Pulse 105 H 05/16/24 07:44 Resp 18 05/16/24 07:44 BP 155/70 05/16/24 07:44 Pulse Ox 96 05/16/24 07:44 O2 Del Method Room Air 05/16/24 07:44 05/15/24 05/16/24 05/16/24 22:59 06:59 14:59 Intake Total 1300 / 1500 1076.667 / 2576.667 Output Total 90 / 90 Balance 1210 / 1410 1076.667 / 2486.667 Weight last 48 hrs Weight 117 lb 7 oz Weight 109 lb 5 oz Weight 102 lb 1.6 oz Weight 120 lb Physical Exam 2 GI: OTHER: Abdomen is soft, minimally tender to palpation, nondistended. Data 05/16/24 06:52 05/16/24 06:52 A&P Assessment and plan (1) Small bowel obstruction: Plan Patient showing very good progression with conservative management of SBO, we will do a Gastrografin trial today. Vitals have been stable abdominal exam has been stable white count is normal and lactate 0.6. If Gastrografin trial is positive we will start her on a full liquid diet and aggressive bowel regimen and will advance as tolerated. Attestations 2 Medical Necessity Statement*: Patient will require another 24 hours of hospital stay for management of SBO. Coding Level of Care Code Acute Code for [facility] Fwd Diagnoses Small bowel obstruction K56.609
--- NOTE | 2024-05-16 09:23 | PC.CHAP ---
Pastoral Care Encounter/Spiritual Assessment Type of Contact [] Declined immunologist visit [] Patient/Family/Request visit [] Outpatient visit [] Follow-up visit [] Physician referral [] Code/Alert [x] Routine visit [] Staff referral [] Actively dying [] Patient sleeping [] Family support [] [] Out of room [] Palliative care [] [] Receiving care in room [] Pre-surgical visit [] Trauma [] Long length of stay [] ICU visit [] Other: Relational/Emotional Strength [] Patient feels connected with others/family/visitors/staff [] Distress [] Loneliness/isolation [] Abandonment Spirituality of Patient [x] Person of Esther [] Attends Cheondoism of their Esther [x] Believes in Prayer [] Reads Bible or Christian materials [] There are Spiritual issues to be addressed Director Home Health Interventions [x] Prayer [x] Active listening [] Non-anxious presence [] Spiritual/emotional support [] Crisis/trauma care [] Spiritual counseling [] Bereavement support [] Provided bereavement packet [x] Provided Bible/devotional materials [] Provided toy/stuffed animal, coloring book to patient or family member [] Provided Communion [] Anointing/[place] [] Salvation [x] Completed spiritual assessment [] Other: Impact on Illness or Injury [] Angry [] Fearful [] Anxious [] Often cries [] Exhaustion [] Unable to work [] Unable to attend caodaism [] Unable to walk/stand [] Unable to read [] Unable to drive [] Unable to eat/drink [] Unable to sleep [] Unable to be with family [] Patient intubated [] Other: Summary Time spent with patient 5 min
[2024-05-16] MEDS: ciprofloxacin 400 MG/200 ML PREMIX 200 MG IV ×2 (09:54→20:47)
--- NOTE | 2024-05-16 10:35 | PC.PHAR ---
mEDICATIONS LISTED WERE VERIFIED WITH [facility] .
--- NOTE | 2024-05-16 10:48 | P.MISC_ITS ---
Miscellaneous Note Purpose of Documentation: Update on patient care Note: Will plan to do a Gastrografin trial today, patient did not tolerate the taste of the Gastrografin producing regurgitation as soon as she tried to swallow it. She has been passing gas and after she attempted to take the Gastrografin she had a large bowel movement. Her abdominal examination has significantly improved abdomen is soft and absolutely no tenderness to palpation. I will st art the patient on liquid diet and give her twice a day MiraLAX. If she is tolerating diet she will be discharged tomorrow.
--- NOTE | 2024-05-16 10:48 | PM.PN ---
Vitals/I&O/Wt Last Vital Signs Temp 98.9 F 05/16/24 07:44 Pulse 105 H 05/16/24 07:44 Resp 18 05/16/24 07:44 BP 155/70 05/16/24 07:44 Pulse Ox 96 05/16/24 07:44 O2 Del Method Room Air 05/16/24 07:44 05/15/24 05/16/24 05/16/24 22:59 06:59 14:59 Intake Total 1300 / 1500 1076.667 / 2576.667 Output Total 90 / 90 Balance 1210 / 1410 1076.667 / 2486.667 Weight last 48 hrs Weight 117 lb 7 oz Weight 109 lb 5 oz Weight 102 lb 1.6 oz Weight 120 lb Data 05/16/24 06:52 05/16/24 06:52 Coding Level of Care Code Acute Code for Chg Fwd
[2024-05-16] MEDS: polyethylene glycol 3350 Pkt 17 gm PO (11:18)
[2024-05-16] MEDS: morphine 4 mg/mL SDV 1 mL 2 MG IVP ×2 (15:38→20:47)
[2024-05-16] MEDS: pantoprazole 40 mg SDV IVP (20:48)
[2024-05-17] VITALS (9 sets, daily range): BP systolic 98–109; BP diastolic 58–67; PULSE 81–114; RESP 16–20; TEMP 36.8–37.7; O2SAT 95–98
[2024-05-17] MEDS: morphine 4 mg/mL SDV 1 mL 2 MG IVP ×2 (01:56→23:10)
[2024-05-17] MEDS: metroNIDAZOLE IV 500 MG/100 ML PREMIX 100 MG IV ×2 (05:20→13:41)
[2024-05-17 06:10] LABS: Basophils % 0.4 %; Eosinophils # 0.2 10^3/uL (0.0-0.8); Eosinophils % 5.3 %; Hematocrit 26.6 % (36-47); Lymphocytes # 1.3 10^3/uL (0.8-4.8); Lymphocytes % 27.7 %; Mean Corpuscular HGB Conc 27.4 g/dL (30-55); Mean Corpuscular Hemoglobin 20.3 pg (27-33); Mean Corpuscular Volume 74.1 fl (85-98); Mean Platelet Volume 10.6 fL (7.4-10.4); Monocytes # 0.4 10^3/uL (0.2-0.9); Monocytes % 8.2 %; Neutrophils # 2.61 10^3/uL (1.8-7.7); Nucleated Red Blood Cells % 0 %; Platelet Count 213 10^3/cmm (157-399); Red Blood Count 3.59 10^6/uL (3.85-5.65); Red Cell Distribution Width 16.7 % (12.1-15.1); White Blood Count 4.51 10^3/uL (3.29-11.43)
[2024-05-17 06:27] LABS: Slide Review Slide Review Perform
[2024-05-17 06:30] LABS: Anion Gap 14.1 (5-19); Blood Urea Nitrogen 3 mg/dL (6-20); Calcium 7.5 mg/dL (8.5-10.5); Carbon Dioxide 26 mmol/L (22-29); Chloride 102 mmol/L (98-107); Creatinine Clr Calc Pharmacy 107.3961; Glomerular Filtration Rate 126.3 mL/min (90-130); Glucose 84 mg/dL (65-115); Magnesium 1.7 mg/dL (1.7-2.3); Osmolality Calculated 284 mOsm/kg (285-295); Phosphorus 2.4 mg/dL (2.5-4.5); Potassium 3.1 mmol/L (3.5-5.1); Sodium 139 mmol/L (136-145)
[2024-05-17 06:31] LABS: Lactate (Lactic Acid level) 0.6 mmol/L (0.5-2.2)
--- NOTE | 2024-05-17 08:32 | P.PN_ITS ---
Subjective 2 Subjective: This is a 59-year-old female who presents to the hospital with small bowel obstruction in the setting of multiple previous abdominal surgery and likely adhesions. Patient has been doing well over the last 24 hours, had 3 large bowel movements so far and is passing large amount of gas. She is tolerating clear liquid diet, this morning only complaint is some sensation of gas and pain in the right flank Vitals/I&O/Wt Last Vital Signs Temp 98.6 F 05/17/24 07:34 Pulse 83 05/17/24 07:34 Resp 17 05/17/24 07:34 BP 109/66 05/17/24 07:34 Pulse Ox 98 05/17/24 07:34 O2 Del Method Room Air 05/17/24 07:34 05/16/24 05/17/24 05/17/24 22:59 06:59 14:59 Intake Total 2019 200 / 3540 Balance 2019 200 / 3540 Weight last 48 hrs Weight 113 lb 6.4 oz Weight 117 lb 7 oz Physical Exam 2 GI: OTHER: Abdominal exam is benign abdomen is soft minimally tender to palpation minimally distended Data 05/17/24 05:20 05/17/24 05:20 A&P Assessment and plan (1) Small bowel obstruction: Plan Patient is showing very good progression after conservative management of a small bowel obstruction. Passing gas and having several bowel movements in the last 24 hours, and we will advance her diet to full liquid diet today and encourage ambulation if she continues to have bowel movements by dinner we will give her a GI soft diet and will plan for discharge tomorrow. Labs remain unremarkable lactate level 0.6 and vital signs Being normal Attestations 2 Medical Necessity Statement*: Possible discharge tomorrow Coding Level of Care Code Acute Code for Chg Fwd Diagnoses Small bowel obstruction K56.609
[2024-05-17] MEDS: ciprofloxacin 400 MG/200 ML PREMIX 200 MG IV ×2 (10:10→21:56)
[2024-05-17] MEDS: lidocaine 1% 5 ML in potassium chloride premix 100 ML 26.25 ML IV (12:20)
[2024-05-17] MEDS: pantoprazole 40 mg SDV IVP (21:56)
[2024-05-18] VITALS: BP 88/47; PULSE 70; RESP 17; TEMP 37.1; O2SAT 97
[2024-05-18] MEDS: metroNIDAZOLE IV 500 MG/100 ML PREMIX 100 MG IV (01:45)
[2024-05-18 04:00] VITALS: BP 81/48; PULSE 76; RESP 16; TEMP 37.1; O2SAT 98
[2024-05-18 07:24] VITALS: BP 100/59; PULSE 95; RESP 16; O2SAT 98
--- NOTE | 2024-05-18 07:37 | PM.DCS ---
Discharge Providers Date of Admission: 05/14/24 16:38 Date of Discharge: May 18, 2024 Attending Provider at Admission: Yovani Pruitt MD Attending Provider at Discharge: Yovani Pruitt MD Primary Care Provider: Braden Owen NP Diagnoses at Discharge Discharge Diagnosis (1) Small bowel obstruction: Status: Acute Reason for Visit Reason for Visit: abd pain Hospital Course Hospital Course This is a 59-year-old female with history of chronic abdominal pain and several small bowel obstructions after having multiple intra-abdominal surgeries including a partial gastrectomy. She presented to our institution over the weekend with abdominal pain nausea and vomiting and without having a bowel movement in the last [address] scan of the abdomen pelvis was done and show evidence of a small bowel obstruction, she was admitted for conservative management. Patient underwent NG tube decompression for almost 48 hours, by then she started to pass significant amount of gas, on hospital day 2 she had several bowel movements and was started on diet during hospital day 3 on hospital day 4 she has been having several bowel movements daily and has been passing large amount of gas abdominal pain has completely resolved, only complaint for the patient has been generalized spasm like pain, according to the patient she chronically takes a muscle relaxant at home, on the morning of discharge my examination at the bedside showed a soft abdomen that was not tender or distended, patient had recently had a large bowel movement in the bedside commode, her bowel sounds were active, after admission laboratory workup completely normalized last white count was normal and last lactate level was 0.6. Vitals have remained stable. At this point patient is cleared to transition home on GI soft diet, she will continue taking twice a day MiraLAX and will continue her muscle relaxant as needed. Physical Exam GI: OTHER: Abdomen is soft, nontender, nondistended, normoactive bowel sounds Discharge Data Studies Completed and Pending Completed Studies During Hospitalization Category Date Time Status CT abdomen pelvis wo con [id number] Stat Cat Scan 05/14/24 14:23 Completed XR acute abdomen series [id number] Stat Exams 05/14/24 13:16 Completed XR chest 1V portable [id number] Routine Exams 05/15/24 08:10 Completed XR chest 1V portable [id number] Stat Exams 05/14/24 15:43 Completed XR chest LT decubitus [id number] Routine Exams 05/15/24 10:48 Completed XR chest RT decubitus [id number] Routine Exams 05/15/24 10:48 Completed Radiology Impressions Chest/Abdomen X-ray 05/14/24 13:16 IMPRESSION: Prominent small bowel distension with severe constipation. This could represent small bowel obstruction. Abdomen/Pelvis CT 05/14/24 14:23 IMPRESSION: Mechanical small bowel obstruction of uncertain etiology. There is mesenteric twisting in the right lower quadrant suggesting the possibility of small bowel volvulus Chest X-Ray 05/15/24 10:48 IMPRESSION: No pneumothorax noted Laboratory Results WBC 4.51 10^3/uL (3.29-11.43) 05/17/24 05:20 RBC 3.59 10^6/uL (3.85-5.65) L 05/17/24 05:20 Hgb 7.30 g/dL (11.27-16.99) L 05/17/24 05:20 Hct 26.6 % (36-47) L 05/17/24 05:20 MCV 74.1 fl (85-98) L 05/17/24 05:20 MCH 20.3 pg (27-33) L 05/17/24 05:20 MCHC 27.4 g/dL (30-55) L 05/17/24 05:20 RDW 16.7 % (12.1-15.1) H 05/17/24 05:20 Plt Count 213 10^3/cmm (157-399) 05/17/24 05:20 MPV 10.6 fL (7.4-10.4) H 05/17/24 05:20 Neut % (Auto) 58.0 % 05/17/24 05:20 Lymph % (Auto) 27.7 % 05/17/24 05:20 [place] % (Auto) 8.2 % 05/17/24 05:20 Eos % (Auto) 5.3 % 05/17/24 05:20 Baso % (Auto) 0.4 % 05/17/24 05:20 Neut # (Auto) 2.61 10^3/uL (1.8-7.7) 05/17/24 05:20 Lymph # (Auto) 1.3 10^3/uL (0.8-4.8) 05/17/24 05:20 Kimble # (Auto) 0.4 10^3/uL (0.2-0.9) 05/17/24 05:20 Eos # (Auto) 0.2 10^3/uL (0.0-0.8) 05/17/24 05:20 Baso # (Auto) 0.0 10^3/uL (0.0-0.1) 05/17/24 05:20 Nucleated RBC % (auto) 0 % 05/17/24 05:20 Nucleated RBCs # 0.0 /100WBC 05/17/24 05:20 Sodium 139 mmol/L (136-145) 05/17/24 05:20 Potassium 3.1 mmol/L (3.5-5.1) L 05/17/24 05:20 Chloride 102 mmol/L (98-107) 05/17/24 05:20 Carbon Dioxide 26 mmol/L (22-29) 05/17/24 05:20 Anion Gap 14.1 (5-19) 05/17/24 05:20 BUN 3 mg/dL (6-20) L 05/17/24 05:20 Creatinine 0.5 mg/dL (0.5-0.9) 05/17/24 05:20 GFR Calculation 126.3 mL/min (90-130) 05/17/24 05:20 Glucose 84 mg/dL (65-115) 05/17/24 05:20 Calculated Osmolality 284 mOsm/kg (285-295) L 05/17/24 05:20 Lactic Acid 1.3 mmol/L (0.5-2.2) 05/15/24 05:07 Lactic Acid (Sepsis) 1.0 mmol/L (0.5-2.2) 05/14/24 20:12 Lactate 0.6 mmol/L (0.5-2.2) 05/17/24 05:20 Calcium 7.5 mg/dL (8.5-10.5) L 05/17/24 05:20 Phosphorus 2.4 mg/dL (2.5-4.5) L 05/17/24 05:20 Magnesium 1.7 mg/dL (1.7-2.3) 05/17/24 05:20 Total Bilirubin 0.3 mg/dL (0.15-1.2) 05/14/24 13:43 AST 19 U/L (0-32) 05/14/24 13:43 ALT 12 U/L (0-33) 05/14/24 13:43 Alkaline Phosphatase 125 U/L (35-105) H 05/14/24 13:43 Total Protein 7.8 g/dL (6.6-8.7) 05/14/24 13:43 Albumin 4.7 g/dL (3.5-5.2) 05/14/24 13:43 Globulin 3.1 g/dL (1.3-4.6) 05/14/24 13:43 Lipase 13 U/L (13-60) 05/14/24 13:43 Urine Color Dark yellow (Yellow) A 05/14/24 15:37 Urine Appearance Clear (CLEAR) 05/14/24 15:37 Urine pH 5.5 (5-7) 05/14/24 15:37 Ur Specific [place] 1.030 (1.005-1.030) 05/14/24 15:37 Urine Protein 1+ (Negative) A 05/14/24 15:37 Urine Glucose (UA) Negative (Normal) 05/14/24 15:37 Urine Ketones Trace (Negative) 05/14/24 15:37 Urine Blood Negative (Negative) 05/14/24 15:37 Urine Nitrate Negative (Negative) 05/14/24 15:37 Urine Bilirubin Negative (Negative) 05/14/24 15:37 Urine Urobilinogen 1.0 mg/dL (Negative) 05/14/24 15:37 Ur Leukocyte Esterase Negative (Negative) 05/14/24 15:37 Urine RBC 0-2 /hpf (0-2) 05/14/24 15:37 Urine WBC 0-5 /hpf (0-5) 05/14/24 15:37 Ur Squamous Epith Cells 0-5 /hpf (0-5) 05/14/24 15:37 Amorphous Sediment Not Reportable 05/14/24 15:37 Urine Bacteria 1+ /hpf (NONE) H 05/14/24 15:37 Hyaline Casts 15.28 /lpf 05/14/24 15:37 Urine Mucus 3+ /hpf 05/14/24 15:37 Vitals Last Vital Signs Temp 98.8 F 05/18/24 04:00 Pulse 95 05/18/24 07:24 Resp 16 05/18/24 07:24 BP 100/59 05/18/24 07:24 Pulse Ox 98 05/18/24 07:24 O2 Del Method Room Air 05/18/24 07:24 Discharge Plan Discharge Patient Disposition: Home Condition: Stable Prescriptions: New polyethylene glycol 3350 [Miralax] 17 gram powder in packet 17 g PO BID 30 Days Qty: 60 3RF ondansetron 4 mg tablet,disintegrating 4 mg PO Q8H PRN (Reason: nausea and vomiting) 5 Days Qty: 20 0RF Continued Anoro Ellipta 62.5-25 mcg/actuation blister with device 1 ea INHALATION DAILY Stiolto Respimat 2.5-2.5 mcg/actuation mist 2 puff INHALATION DAILY tizanidine 2 mg tablet 2 mg PO Q6H PRN (Reason: Spasms) 14 Days Qty: 30 1RF nitroglycerin [Nitrostat] 0.4 mg Tablet, Sublingual 0.4 mg SUBLINGUAL Q5M PRN (Reason: Chest Pain) Rx Instructions: do not exceed 3 doses per episode Discontinued ondansetron HCl 4 mg tablet 4 mg PO Q8H PRN (Reason: nausea and vomiting) Qty: 7 0RF Discharge Orders: Discharge Order (Routine); Ordered 05/18/24 Ordered By: Yovani Pruitt Referrals: Braden Owen NP [Primary Care Provider] - (1 week) Yovani Pruitt MD [Physician] - (2 weeks) Discharge Diet: GI Soft Discharge Activity: Increase activity as tolerated Patient Instructions: Opioid Safety, GI (Gastrointestinal) Soft Diet (DC) Activity Restrictions/Additional Instructions: Walk is much as possible, please do not forget to take your MiraLAX twice daily, the goal is for you to have at least 1 bowel movement per day.. Please follow the GI soft diet instructions. Please return to the hospital you have severe abdominal pain that is getting worse over time nausea and vomit. Discharge Attestations Time Spent in Discharge Care*: less than 30 min Quality Metrics Clinical Quality Measures [ No reported AMI, CVA or VTE this stay] Coding Level of Care Code Acute Code for Chg Fwd Diagnoses Small bowel obstruction K56.609
[2024-05-18 10:22] VITALS: PULSE 83; RESP 16; O2SAT 98
[2024-05-18 11:34] VITALS: BP 112/63; PULSE 80; RESP 17; TEMP 37.1; O2SAT 96
[2024-05-18 13:49] VITALS: BP 112/63; PULSE 80; RESP 17; TEMP 37.1; O2SAT 96
== END 2024-05-18 13:50 | disposition home or self-care (01) | DRG 390 ==
LOC: ER 16:43 → MEDSURG 18:16
PROVIDERS: Admitting Provider Surgery; Emergency Provider Emergency Medicine; PCP Nurse Practitioner Family; Visit Provider Surgery
DX: K56.50 Intestinal adhesions [bands], unspecified as to partial versus complete obstruction (principal); E78.5 Hyperlipidemia, unspecified; G62.9 Polyneuropathy, unspecified; I25.10 Atherosclerotic heart disease of native coronary artery without angina pectoris; K21.9 Gastro-esophageal reflux disease without esophagitis; I10 Essential (primary) hypertension; J43.9 Emphysema, unspecified; G43.711 Chronic migraine without aura, intractable, with status migrainosus; Z98.890 Other specified postprocedural states; Z90.49 Acquired absence of other specified parts of digestive tract; Z90.710 Acquired absence of both cervix and uterus; Z90.3 Acquired absence of stomach [part of]
CPT/HCPCS: 36415; 71045; 74022; 74176; 80048; 80053; 81001; 83605; 83690; 83735; 84100; 85025; 96374; 96375; 96376; 99285; J0696; J0744; J2270; J2405; J2470; J3480; J3490; J3535; J7120

== ENCOUNTER 2024-07-07 09:15 | Oncology outpatient (recurring) (ONCR) | payer MEDICAID, SELFPAY ==
[2024-07-04 13:32] LABS: Basophils % 0.2 %; Eosinophils # 0.2 10^3/uL (0.0-0.8); Eosinophils % 5.1 %; Hematocrit 28.2 % (36-47); Lymphocytes # 1.1 10^3/uL (0.8-4.8); Lymphocytes % 22.8 %; Mean Corpuscular HGB Conc 26.6 g/dL (30-55); Mean Corpuscular Hemoglobin 18.9 pg (27-33); Mean Platelet Volume 9.8 fL (7.4-10.4); Monocytes # 0.4 10^3/uL (0.2-0.9); Monocytes % 7.6 %; Neutrophils # 3.03 10^3/uL (1.8-7.7); Neutrophils % 63.9 %; Nucleated Red Blood Cells % 0 %; Platelet Count 242 10^3/cmm (157-399); Red Blood Count 3.97 10^6/uL (3.85-5.65); Red Cell Distribution Width 18.1 % (12.1-15.1); White Blood Count 4.74 10^3/uL (3.29-11.43)
[2024-07-04 13:43] LABS: Alanine Aminotransferase 9 U/L (0-33); Albumin Level 4.3 g/dL (3.5-5.2); Alkaline Phosphatase 100 U/L (35-105); Anion Gap 10.9 (5-19); Aspartate Amino Transferase 14 U/L (0-32); Blood Urea Nitrogen 16 mg/dL (6-20); Carbon Dioxide 26 mmol/L (22-29); Chloride 101 mmol/L (98-107); Creatinine Clr Calc Pharmacy 101.8422; Ferritin 8 ng/mL (15-150); Globulin 2.5 g/dL (1.3-4.6); Glomerular Filtration Rate 126.3 mL/min (90-130); Glucose 103 mg/dL (65-115); Iron 14 ug/dL (37-145); Osmolality Calculated 279 mOsm/kg (285-295); Potassium 3.9 mmol/L (3.5-5.1); Sodium 134 mmol/L (136-145); Total Bilirubin 0.2 mg/dL (0.15-1.2); Total Iron Binding Capacity 466 mcg/dl; Total Protein 6.8 g/dL (6.6-8.7); Unsaturated Iron Binding 452 ug/dL (112-347)
--- NOTE | 2024-07-07 17:42 | PC.NURSE ---
0930 PT arrived via ambulation for blood draw and possible blood transfusion. Pt lost consciousness. Pt was helped to the chair and a rapid response was called, PT had pulse and was breathing. O2 was placed via mask, vitla signs taken. IV placed and transported to ER via [facility] ER staff present.
== END 2024-08-02 23:59 | disposition home or self-care (01) ==
PROVIDERS: PCP Nurse Practitioner Family; Visit Provider Internal Medicine Medical Oncology
DX: Z53.9 Procedure and treatment not carried out, unspecified reason (principal)
CPT/HCPCS: 36415; 80053; 82728; 83540; 83550; 85025; 99205

== ENCOUNTER 2024-07-07 10:22 | Inpatient (IN) | payer MEDICAID, SELFPAY ==
[2024-07-07] VITALS (21 sets, daily range): BP systolic 100–133; BP diastolic 63–85; PULSE 79–107; RESP 16–29; TEMP 36.4–36.8; O2SAT 93–100; BMI 16.9
--- NOTE | 2024-07-07 10:38 | CT_ITS ---
WS: [id number] CT ABDOMEN PELVIS TECHNIQUE: Contrast-enhanced CT of the abdomen and pelvis with coronal and sagittal reformatted image s. CLINICAL INFORMATION: abd pain COMPARISON: CT 05/14/2024 DLP: 290.[address] scans at [facility] use at least one of these dose optimization techniques: automated e xposure control; mA and/or kV adjustment per patient size (includes targeted exams where dose is matc hed to clinical indication); or iterative reconstruction. FINDINGS: Evidence of prior gastric surgery. Prior partial colon resection. Prior cholecystectomy. Prior hyster ectomy. Evidence of prior appendectomy. Lung bases are well aerated. Pectus excavatum. Diffuse fatty infiltration of the liver. Normal portal vein and splenic vein. Normal spleen. Normal pancreatic parenchymal enhancement. LEFT adrenal nodule likely adenoma. Celiac and SMA are patent. Normal caliber abdominal aorta. Mild aortic calcification . Normal sigmoid colon. Malrotation both kidneys. Dense constipation in the transverse colon with fecal retention. Dense constipation in the RIGHT colo n and cecum. LEFT colon and sigmoid colon are decompressed. Suggestion of stricture with transition t o more normal caliber colon in the LEFT upper quadrant just distal to the splenic flexure. This could further evaluated with colonoscopy. Normal caliber small bowel. Fecalization of the terminal ileum. Distended stomach with food products and air-fluid level. CT/CT abdomen pelvis w con* [id number] IMPRESSION: 1. Dense constipation involving the cecum and RIGHT colon and transverse colon extending to the splenic flexure. Descending colon and sigmoid colon are decom pressed. Suggestion of a possible stricture or transition point just distal to the splenic flexure. Recommend further evaluation with colonoscopy to evaluate for stricture or obstructing lesion. 2. Fecalization of the terminal ileum. Small bowel is otherwise decompressed. 3. Prior postoperative changes described above. 4. No other acute findings.
--- NOTE | 2024-07-07 10:42 | ED_ITS ---
HPI - Syncope 2 General: Chief Complaint: Syncope Stated Complaint: SYNCOPE Time Seen by Provider: 07/07/24 10:34 Source: patient Mode of arrival: ambulatory Limitations: no limitations History of Present Illness: 59-year-old female who states she is bee n having blood in her stool for the last 2 to 3 weeks she states been dark black she has a history of anemia as well she is actually at the cancer center today to get a blood transfusion she had had a syncopal event over there and a rapid response was called she states she had stood up felt dizzy and passed out someone caught her states she feels very weak she has been having ongoing abdominal pain. She denies any fever or vomiting Associated symptoms: Reports abdominal pain; Deny chest pain, fever(s), headache(s) or nausea Related Data Home Medications Medication Instructions Recorded Confirmed nitroglycerin 0.4 mg sublingual 0.4 mg sublingual Q5M PRN Chest 07/16/23 07/07/24 tablet (Nitrostat) Pain tiotropium 2.5 mcg-olodaterol 2.5 2 puff inhalation DAILY 05/16/24 07/07/24 mcg/actuation mist for inhalation (Stiolto Respimat) umeclidinium 62.5 mcg-vilanterol 1 ea inhalation DAILY 05/16/24 07/07/24 25 mcg/actuation powdr for inhalation (Anoro Ellipta) umieuwi-ygiqabafgbqag-bflfnghc 250 2 tab PO Q6H PRN Pain 07/07/24 07/07/24 mg-250 mg-65 mg tablet (Excedrin Extra Strength) polyethylene glycol 3350 17 gram 17 g PO BID PRN constipation 07/07/24 07/07/24 oral powder packet (Miralax) Previous Rx's Medication Instructions Recorded tizanidine 2 mg tablet 2 mg PO Q6H PRN Spasms 14 days #30 05/18/24 tabs Allergies Allergy/AdvReac Type Severity Reaction Status Date / Time diphenhydramine Allergy Unknown Verified 07/04/24 13:01 [From Benadryl] hydromorphone [From Dilaudid] Allergy ADR-Vomitin Verified 07/04/24 13:01 g ibuprofen [From Motrin] Allergy ALGY-Anaphy Verified 07/04/24 13:01 laxis Penicillins Allergy ALGY-Anaphy Verified 07/04/24 13:01 laxis tramadol Allergy Unknown Verified 07/04/24 13:01 Review of Systems 2 Const: Denies: fever(s), chills, body aches or change in appetite ENMT: Denies: throat pain or dental pain Card: Reports: syncope; Denies: chest pain Resp: Denies: dyspnea GI: Reports: abdominal pain and diarrhea; Denies: nausea or vomiting Musc: Denies: neck pain or back pain Skin/Breast: Denies: rash Neuro: Denies: headache(s) PFSH ED 2 PFSH: Medical History Small bowel obstruction Microcytic anemia Leukocytosis Dyslipidemia Nondisplaced fracture of fifth right metatarsal bone Fracture of fourth metatarsal bone of right foot SOB (shortness of breath) Hx of COPD, 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,quit in 2000 Metatarsal bone fracture Dysphagia Weight loss Peripheral neuropathy Chest pain Abnormal EKG Atherosclerotic heart disease of [place] coronary artery with other forms of angina pectoris GERD (gastroesophageal reflux disease) Benign essential hypertension with target blood pressure below 140/90 Bradycardia AV block, 2nd degree Recurrent vomiting HTN (hypertension) Nausea and vomiting Elevated blood pressure reading Unstable angina Chest pain Palpitations Chest pain Emphysema of lung Quit in 2019 Chronic migraine without aura, intractable, with status migrainosus Surgical History Status post colon resection H/O colonoscopy History of surgery ULCERS AND PART OF STOMACH REMOVED History of colon resection History of hysterectomy History of appendectomy History of cholecystectomy Family History Mother CAD (coronary artery disease), Onset Age: 50 Cancer Lung disease Stroke Denies family history of Diabetes Clotting disorder Dementia Chronic kidney disease (CKD) Suicide Anesthesia complication Bleeding disorder Social History Smoking and tobacco/nicotine status: unknown if used tobacco/nicotine Alcohol intake: former Substance/Drug Use: never Physical Exam 2 Const: COMMON NORMALS: patient oriented x3 GENERAL APPEARANCE: ill appearing and frail appearing HENMT: COMMON NORMALS: normocephalic and atraumatic HEAD & SCALP: n ormocephalic and atraumatic Neck/C-Spine: COMMON NORMALS: full ROM and supple Chest: COMMONS NORMALS: normal inspection of the chest Resp: COMMON NORMALS: normal respiratory effort, No retractions, No use of accessory muscles and clear to auscultation bilaterally AUSCULTATION: clear to auscultation bilaterally Cardio: COMMON NORMALS: regular rate, regular rhythm and No murmurs present (Cardio) RATE: regular rate RHYTHM: regular rhythm GI: COMMON NORMALS: Normal to inspection, nondistended, normoactive bowel sounds present, Soft to palpation and no masses PALPATION: Yes Soft to palpation RECTAL EXAM: visual inspection normal and No heme positive stool OTHER: diffuse tenderness Extremity: COMMON NORMALS: normal to inspection and full ROM Neuro: COMMON NORMALS: patient oriented x3, moves all extremities and no focal motor deficits Psych: COMMON NORMALS: mental status grossly normal, Normal thought process present and cooperative THOUGHT PROCESS: Normal thought process present Skin: COMMON NORMALS: no rashes or lesions noted and no wounds GENERAL SKIN EXAM: no rashes or lesions noted Course 2 Vital Signs: Vital signs: Vital Signs Temperature 98.0 F 07/07/24 12:50 Pulse Rate 98 07/07/24 12:50 Respiratory Rate 18 07/07/24 12:50 Blood Pressure 119/78 07/07/24 12:50 Pulse Oximetry 100 07/07/24 12:50 Oxygen Delivery Me thod Room Air 07/07/24 10:48 MDM - Syncope Medical Decision Making Patient presents here with anemia she had a syncopal event at oncology. She does have some mild anemia here rectal exam here showed no blood in her stools we will transfuse will admit as well. Medical Records I reviewed the patient's medical records. Lab Data I reviewed the patient's lab results. 07/07/24 10:41 07/07/24 10:41 Radiology Impressions Abdomen/Pelvis CT 07/07/24 10:38 IMPRESSION: 1. Dense constipation involving the cecum and RIGHT colon and transverse colon extending to the splenic flexure. Descending colon and sigmoid colon are decompressed. Suggestion of a possible stricture or transition point just distal to the splenic flexure. Recommend further evaluation with colonoscopy to evaluate for stricture or obstructing lesion. 2. Fecalization of the terminal ileum. Small bowel is otherwise decompressed. 3. Prior postoperative changes described above. 4. No other acute findings. Laboratory Results WBC 7.86 10^3/uL (3.29-11.43) 07/07/24 10:41 RBC 4.01 10^6/uL (3.85-5.65) 07/07/24 10:41 Hgb 7.50 g/dL (11.27-16.99) L 07/07/24 10:41 Hct 28.4 % (36-47) L 07/07/24 10:41 MCV 70.8 fl (85-98) L 07/07/24 10:41 MCH 18.7 pg (27-33) L 07/07/24 10:41 MCHC 26.4 g/dL (30-55) L 07/07/24 10:41 RDW 18.3 % (12.1-15.1) H 07/07/24 10:41 Plt Count 289 10^3/cmm (157-399) 07/07/24 10:41 MPV 10.3 fL (7.4-10.4) 07/07/24 10:41 Neut % (Auto) 74.7 % 07/07/24 10:41 Lymph % (Auto) 15.9 % 07/07/24 10:41 [place] % (Auto) 7.0 % 07/07/24 10:41 Eos % (Auto) 2.0 % 07/07/24 10:41 Baso % (Auto) 0.1 % 07/07/24 10:41 Neut # (Auto) 5.87 10^3/uL (1.8-7.7) 07/07/24 10:41 Lymph # (Auto) 1.3 10^3/uL (0.8-4.8) 07/07/24 10:41 [place] # (Auto) 0.6 10^3/uL (0.2-0.9) 07/07/24 10:41 Eos # (Auto) 0.2 10^3/uL (0.0-0.8) 07/07/24 10:41 Baso # (Auto) 0.0 10^3/uL (0.0-0.1) 07/07/24 10:41 Nucleated RBC % (auto) 0 % 07/07/24 10:41 Nucleated RBCs # 0.0 /100WBC 07/07/24 10:41 PT 12.40 SECONDS (12.1-14.9) 07/07/24 10:41 INR 0.90 (0.8-1.2) 07/07/24 10:41 Sodium 138 mmol/L (136-145) 07/07/24 10:41 Potassium 4.5 mmol/L (3.5-5.1) 07/07/24 10:41 Chloride 106 mmol/L (98-107) 07/07/24 10:41 Carbon Dioxide 22 mmol/L (22-29) 07/07/24 10:41 Anion Gap 14.5 (5-19) 07/07/24 10:41 BUN 21 mg/dL (6-20) H 07/07/24 10:41 Creatinine 0.6 mg/dL (0.5-0.9) 07/07/24 10:41 GFR Calculation 102.3 mL/min (90-130) 07/07/24 10:41 Glucose 107 mg/dL (65-115) 07/07/24 10:41 Calculated Osmolality 289 mOsm/kg (285-295) 07/07/24 10:41 Calcium 9.0 mg/dL (8.5-10.5) 07/07/24 10:41 Total Bilirubin 0.2 mg/dL (0.15-1.2) 07/07/24 10:41 AST 19 U/L (0-32) 07/07/24 10:41 ALT 10 U/L (0-33) 07/07/24 10:41 Alkaline Phosphatase 102 U/L (35-105) 07/07/24 10:41 Total Protein 6.7 g/dL (6.6-8.7) 07/07/24 10:41 Albumin 4.3 g/dL (3.5-5.2) 07/07/24 10:41 Globulin 2.4 g/dL (1.3-4.6) 07/07/24 10:41 Lipase 19 U/L (13-60) 07/07/24 10:41 Blood Type A Positive 07/07/24 10:41 Rho(D) Type Rh positive 07/07/24 10:41 Antibody Screen Negative 07/07/24 10:41 Crossmatch See Detail 07/07/24 10:41 All radiology interpretation(s) finalized by discharge EKG Data EKG 1: I personally reviewed and interpreted this EKG as follows: EKG interpretation date: 07/07/24 EKG interpretation time: 10:43 Interpretation: nsr hr [address] elevation qrs 87 qtc 384 Discharge Plan Discharge Patient Disposition: Admitted As Inpatient Clinical Impression: Syncope, Anemia, Abdominal pain Condition: Stable Prescriptions: No Action Anoro Ellipta 62.5-25 mcg/actuation blister with device 1 ea INHALATION DAILY Stiolto Respimat 2.5-2.5 mcg/actuation mist 2 puff INHALATION DAILY tizanidine 2 mg tablet 2 mg PO Q6H PRN (Reason: Spasms) 14 Days Qty: 30 1RF nitroglycerin [Nitrostat] 0.4 mg Tablet, Sublingual 0.4 mg SUBLINGUAL Q5M PRN (Reason: Chest Pain) Rx Instructions: do not exceed 3 doses per episode Excedrin Extra Strength 250-250-65 mg Tablet 2 tab PO Q6H PRN (Reason: Pain) polyethylene glycol 3350 [Miralax] 17 gram powder in packet 17 g PO BID PRN (Reason: constipation ) Referrals: Braden Owen NP [Primary Care Provider] - Coding Level of Care Code ED 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
--- NOTE | 2024-07-07 10:43 | ECG_ITS ---
[facility] Test Date: 2024-07-07 Pat Name: Radha Maguire Department: Room: Gender: Female Manager Spa: : 1965 Requested By: Loc Triplett Order Number: [id number] Diaz MD: Shar Lou M.D. Measurements Intervals [place] Rate: 94 P: 70 CT: 117 QRS: 70 QRSD: 87 T: 65 QT: 333 QTc: 417 Interpretive Statements SINUS RHYTHM WITH SHORT CT INTERVAL MODERATE ST DEPRESSION [0.05+ mV ST DEPRESSION] Compared to ECG 03/05/2024 05:49:[address] interval now present Sinus tachycardia no longer present ST (T wave) deviation still present Electronically Signed On 07-07-2024 14:40:04 BLEND TECHNICIAN by Shar Lou M.D. [email or web address]
[2024-07-07 10:51] LABS: Basophils % 0.1 %; Eosinophils # 0.2 10^3/uL (0.0-0.8); Hematocrit 28.4 % (36-47); Lymphocytes # 1.3 10^3/uL (0.8-4.8); Lymphocytes % 15.9 %; Mean Corpuscular HGB Conc 26.4 g/dL (30-55); Mean Corpuscular Hemoglobin 18.7 pg (27-33); Mean Corpuscular Volume 70.8 fl (85-98); Mean Platelet Volume 10.3 fL (7.4-10.4); Monocytes # 0.6 10^3/uL (0.2-0.9); Neutrophils # 5.87 10^3/uL (1.8-7.7); Neutrophils % 74.7 %; Nucleated Red Blood Cells % 0 %; Platelet Count 289 10^3/cmm (157-399); Red Blood Count 4.01 10^6/uL (3.85-5.65); Red Cell Distribution Width 18.3 % (12.1-15.1); White Blood Count 7.86 10^3/uL (3.29-11.43)
--- NOTE | 2024-07-07 11:00 | PC.NURSE ---
informed consent for blood transfusion obtained @4912; see chart
[2024-07-07 11:13] LABS: Alanine Aminotransferase 10 U/L (0-33); Albumin Level 4.3 g/dL (3.5-5.2); Alkaline Phosphatase 102 U/L (35-105); Anion Gap 14.5 (5-19); Aspartate Amino Transferase 19 U/L (0-32); Blood Urea Nitrogen 21 mg/dL (6-20); Carbon Dioxide 22 mmol/L (22-29); Chloride 106 mmol/L (98-107); Creatinine Clr Calc Pharmacy 73.7364; Globulin 2.4 g/dL (1.3-4.6); Glomerular Filtration Rate 102.3 mL/min (90-130); Glucose 107 mg/dL (65-115); Lipase 19 U/L (13-60); Osmolality Calculated 289 mOsm/kg (285-295); Potassium 4.5 mmol/L (3.5-5.1); Sodium 138 mmol/L (136-145); Total Bilirubin 0.2 mg/dL (0.15-1.2); Total Protein 6.7 g/dL (6.6-8.7)
--- NOTE | 2024-07-07 11:40 | PC.PHAR ---
PAtient states she took all meds and her Inhalers this morning. I phoned [facility] and they stated that she still has the Anoro and Stiolo on hold not picked up .
[2024-07-07] MEDS: iohexol 350 mg/mL 500 mL Btl (per mL) IV (11:50)
[2024-07-07] MEDS: ondansetron 2 mg/ML SDV 2 mL 4 MG IVP ×2 (12:34→21:47)
[2024-07-07] MEDS: morphine 4 mg/mL SDV 1 mL IVP ×2 (12:41→14:15)
--- NOTE | 2024-07-07 13:41 | PM.HP ---
Providers/Chief Complaint Primary Care Provider: Braden Owen NP Chief Complaint: SYNCOPE History of Present Illness Radha Maguire is a 59 year old female with a past medical history of iron deficiency anemia, history of bowel obstruction, microcytic anemia COPD, who presents to [facility] due to lightheadedness, dizziness, fatigue, malaise, and syncopal episode. Currently patient is alert oriented x 3, following all commands, she tells me that she has a history of iron deficiency anemia, she has received transfusions in the past but has not received them in some period of time she is also received iron infusions in the past, reports anaphylactoid type reaction to iron transfusions in which she almost passed out felt lightheaded and dizzy so she has not received iron transfusions in some time. She reports that yesterday she had 1 episode of black tarry bowel movement but has not had any since then. Does report intermittent blood in her stools for the last few weeks. She does report she had an EGD about 2 months ago in [place] she does not remember the findings but she tells me that there was nothing acute. She has never had a colonoscopy she tells me. She does report fatigue, malaise, dizziness, her BMI is down to 17. She tells me that she was at cancer care this morning there is plans on her getting blood transfusion, when she got up she felt lightheaded and dizzy and syncopized, this happened in cancer care rapid response was called she is also complaining of abdominal pain. Currently she is alert oriented x 3, following all commands, denies any chest pain, no palpitations, no nausea, no vomiting, no headache, blurry vision, no seizure-like episodes no strokelike symptoms no focal weakness, Review of Systems Const: Reports: fatigue and malaise; Denies: fever(s) or chills Card: Denies: chest pain Resp: Denies: dyspnea GI: Reports: abdominal pain : Denies: flank pain Neuro: Denies: headache(s), numbness in extremities or weakness in extremities Endo: Denies: polyuria Medications/Allergies Home Medications Medication Instructions Recorded Confirmed Last Taken Type nitroglycerin 0.4 mg sublingual 0.4 mg sublingual Q5M PRN Chest 07/16/23 07/07/24 Unknown History tablet (Nitrostat) Pain tiotropium 2.5 mcg-olodaterol 2.5 2 puff inhalation DAILY 05/16/24 07/07/24 Unknown History mcg/actuation mist for inhalation (Stiolto Respimat) umeclidinium 62.5 mcg-vilanterol 1 ea inhalation DAILY 05/16/24 07/07/24 Unknown History 25 mcg/actuation powdr for inhalation (Anoro Ellipta) tizanidine 2 mg tablet 2 mg PO Q6H PRN Spasms 14 days #30 05/18/24 07/07/24 07/07/24 Rx tabs mpyfhrf-ekeeernlzontm-pwruyubq 250 2 tab PO Q6H PRN Pain 07/07/24 07/07/24 07/07/24 History mg-250 mg-65 mg tablet (Excedrin Extra Strength) polyethylene glycol 3350 17 gram 17 g PO BID PRN constipation 07/07/24 07/07/24 Unknown History oral powder packet (Miralax) Allergies Allergy/AdvReac Type Severity Reaction Status Date / Time diphenhydramine Allergy Unknown Verified 07/04/24 13:01 [From Benadryl] hydromorphone [From Dilaudid] Allergy ADR-Vomitin Verified 07/04/24 13:01 g ibuprofen [From Motrin] Allergy ALGY-Anaphy Verified 07/04/24 13:01 laxis Penicillins Allergy ALGY-Anaphy Verified 07/04/24 13:01 laxis tramadol Allergy Unknown Verified 07/04/24 13:01 PFSH Acute PFSH: Medical History Small bowel obstruction Microcytic anemia Leukocytosis Dyslipidemia Nondisplaced fracture of fifth right metatarsal bone Fracture of fourth metatarsal bone of right foot SOB (shortness of breath) Hx of COPD, 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,quit in 2000 Metatarsal bone fracture Dysphagia Weight loss Peripheral neuropathy Chest pain Abnormal EKG Atherosclerotic heart disease of [place] coronary artery with other forms of angina pectoris GERD (gastroesophageal reflux disease) Benign essential hypertension with target blood pressure below 140/90 Bradycardia AV block, 2nd degree Recurrent vomiting HTN (hypertension) Nausea and vomiting Elevated blood pressure reading Unstable angina Chest pain Palpitations Chest pain Emphysema of lung Quit in 2019 Chronic migraine without aura, intractable, with status migrainosus Surgical History Status post colon resection H/O colonoscopy History of surgery ULCERS AND PART OF STOMACH REMOVED History of colon resection History of hysterectomy History of appendectomy History of cholecystectomy Family History Mother CAD (coronary artery disease), Onset Age: 50 Cancer Lung disease Stroke Denies family history of Diabetes Clotting disorder Dementia Chronic kidney disease (CKD) Suicide Anesthesia complication Bleeding disorder Social History Smoking and tobacco/nicotine status: unknown if used tobacco/nicotine Alcohol intake: former Substance/Drug Use: never Vitals/I&O/Wt Last Vital Signs Temp 98.0 F 07/07/24 12:50 Pulse 98 07/07/24 12:50 Resp 18 07/07/24 12:50 BP 119/78 07/07/24 12:50 Pulse Ox 100 07/07/24 12:50 O2 Del Method Room Air 07/07/24 10:48 07/06/24 07/07/24 07/07/24 22:59 06:59 14:59 Intake Total 0 / 0 Balance 0 / 0 Weight last 48 hrs Weight 46.266 kg Physical Exam Const: COMMON NORMALS: no acute distress and patient oriented x3 OTHER: Appears pale, has conjunctival pallor Eye: COMMON NORMALS: Equal, round and reactive pupils present Resp: COMMON NORMALS: normal respiratory effort, No retractions, No use of accessory muscles and clear to auscultation bilaterally AUSCULTATION: clear to auscultation bilaterally Cardio: COMMON NORMALS: regular rate, regular rhythm, S1 normal heart sound present and S2 normal heart sound present RATE: regular rate RHYTHM: regular rhythm HEART SOUNDS: S1 normal heart sound present and S2 normal heart sound present GI: COMMON NORMALS: Normal to inspection, nondistended, normoactive bowel sounds present, Soft to palpation and non-tender Extremity: COMMON NORMALS: no pedal edema Neuro: COMMON NORMALS: patient oriented x3, CN's II-XII intact bilaterally and moves all extremities Psych: COMMON NORMALS: mental status grossly normal Data 07/07/24 10:41 07/07/24 10:41 A&P Assessment and plan (1) Dyslipidemia: (2) Anemia: (3) Iron deficiency anemia: (4) Microcytic anemia: (5) Syncope: Plan Syncopal episode -Likely orthostatic hypotension, with a combination of low hemoglobin -But could be cardiovascular etiology, cath in 2021 showed mild diffuse coronary artery disease -History of secondary AV block, telemetry monitoring -Orthostatic vitals -Cardiac echo -Carotid artery ultrasound -Monitor hemoglobin -Troponin series -UA -He is receiving blood we will avoid IV fluids due to risk of fluid overload Acute on chronic anemia with syncopal episode -Giving 2 units PRBC -Monitor hemoglobin closely -General Surgery consulted for EGD and colonoscopy -Protonix, Carafate -CT scan findings as below, general surgery consulted for colonoscopy CT/CT abdomen pelvis w con* [id number] IMPRESSION: 1. Dense constipation involving the cecum and RIGHT colon and transverse colon extending to the splenic flexure. Descending colon and sigmoid colon are decompressed. Suggestion of a possible stricture or transition point just distal to the splenic flexure. Recommend further evaluation with colonoscopy to evaluate for stricture or obstructing lesion. 2. Fecalization of the terminal ileum. Small bowel is otherwise decompressed. 3. Prior postoperative changes described above. 4. No other acute findings. -Patient reports a anaphylactoid type of reaction to IV iron we will hold off for now Low BMI 17 evidence of protein calorie malnutrition -Workup as above Patient is DNR/DNI, confirmed with patient multiple times she does not want to have aggressive intervention SCDs for DVT prophylaxis, Lovenox relatively contraindicated given acute anemia Attestations Medical Necessity Statement*: Patient requires hospitalization, inpatient, greater than 2 midnightsfor syncope, acute on chronic anemia Diagnoses Dyslipidemia E78.5 Anemia D64.9 Iron deficiency anemia D50.9 Microcytic anemia D50.9 Syncope R55
--- NOTE | 2024-07-07 13:46 | USCV_ITS ---
Radha Maguire Age: 59 Gender: F : 1965 Exam Date: 07/07/2024 14:08 Ordering Phys: Stefan Garg MD Technologist: MARKELL Exam Location: [facility] – [place] Indication: SYNCOPE Risk Factors: Previous Vascular Surgery: Right Brachial BP: / Left Brachial BP: / Right Left Velocity (cm/s) Spectral Plaque Velocity (cm/s) Spectral Plaque Syst/Diast Broadening Syst/Diast Broadening 111.30/32.30 Prox CCA 101.40/ 36.60 81.50/ 27.10 Mid CCA 101.50/ 38.70 78.90/ 21.90 Distal CCA 97.90 / 39.40 75.00/ 21.90 Prox ICA 80.40 / 37.00 130.50/49.90 Mid ICA 102.70/ 42.90 141.40/56.40 Distal ICA 110.50/ 48.10 72.40 ECA 87.50 1.80 ICA/CCA 1.10 Antegrade Vertebral Antegrade 74.10/ 26.40 cm/s 94.00/ 37.90 cm/s Tri Subclavian Tri 116.6 111.6 0 0 CONCLUSIONS Right proximal to mid ICA stenosis 50-69%. Moderate atheromatous plaque right carotid bulb/ICA. Left ICA stenosis <50%. Moderate atheromatous plaque left carotid bulb/ICA. Normal antegrade Doppler flow noted in the right vertebral artery. Normal antegrade Doppler flow noted in the left vertebral artery. Kennedy Christy MD (Electronically Signed) Final Date: 07 July 2024 16:58 S
--- NOTE | 2024-07-07 13:46 | USCV_ITS ---
Radha Maguire Age: 59 Gender: F : 1965 Exam Date: 07/07/2024 15:32 Ordering Phys: Stefan Garg MD Technologist: CT Exam Location: [facility] – [place] Indication: BP: 126 / 70 HR: 83 Rhythm: Sinus Technical Quality: Adequate MEASUREMENTS (Male / Female) Normal Values 2D ECHO LVOT Diameter 2.0 cm LV Ejection Fraction MOD 4C 60.9 % LV Ejection Fraction MOD 2C 68.3 % LV Ejection Fraction 2C AL 69.0 % LA Diameter 2.4 cm RA Systolic Volume 4C AL 47.6 ml RA Systolic Volume 4C MOD 46.5 ml LA Sys Volume AL 42.9 cm cubed LA Sys Volume Index AL 29.3 cm cubed/m squared Aorta at Sinotubular Diameter 2.3 cm M-MODE LA Ao Ratio MM 1.0 AV Cusp Separation MM 1.7 cm DOPPLER AV Peak Velocity 122.0 cm/s LVOT Peak Velocity 81.0 cm/s AV Area Cont Eq vti 2.2 cm squared AV Area Cont Eq pk 2.1 cm squared MV Peak Velocity 91.0 cm/s MV Area PHT 4.0 cm squared Mitral E to A Ratio 1.3 TR Peak Velocity 275.0 cm/s TR Peak Gradient 30.3 mmHg TR Mean Velocity 213.0 cm/s TR Mean Gradient 20.5 mmHg TR Velocity Time Integral 69.6 cm TV Peak E Velocity 72.0 cm/s PV Peak Velocity 86.5 cm/s FINDINGS Left Ventricle Normal left ventricular size and systolic function, EF 68%.no regional wall motion abnormalities. . Right Ventricle Normal RV size ejection fraction Right Atrium The right atrium is normal in size. Left Atrium The left atrium is normal in size. Mitral Valve no gross abnormalities noted Aortic Valve no gross abnormalities noted Tricuspid Valve No gross abnormalities noted trace tricuspid valve regurgitation. Pulmonic Valve Mild pulmonary valve regurgitation. Pericardium Normal pericardium without effusion. Aorta Normal aortic annulus size. IVC The inferior vena cava appears normal. CONCLUSIONS Normal left ventricular size and systolic function, EF 68%.no regional wall motion abnormalities. . Normal cardiac chamber sizes. No intracardiac masses. Estimated pulmonary artery peak systolic pressure within normal limits No pericardial effusion. No significant valvular lesions. Compared to the study from 05/17/2023, there may not be significant change Dr Meño Neff MD FACC (Electronically Signed) Final Date: 08 July 2024 00:16 S
--- NOTE | 2024-07-07 13:46 | CT_ITS ---
WS: [id number] CT HEAD TECHNIQUE: Noncontrast CT of the head obtained from the skullbase to the vertex. CLINICAL INFORMATION: syncope COMPARISON: 2020 DLP: 963.[address] scans at [facility] use at least one of these dose optimization techniques: automated e xposure control; mA and/or kV adjustment per patient size (includes targeted exams where dose is matc hed to clinical indication); or iterative reconstruction. FINDINGS: Residual contrast from CT earlier today No evidence of intracranial hemorrhage or mass effect. Ventricular system and basal cisterns are harvey nt. Mild small vessel changes with mild parenchymal volume loss. No extra-axial fluid collections. No evidence of mass or mass effect. Normal fenton-white differentiation. Mucosal thickening RIGHT mastoid tip. Paranasal sinuses are well aerated. Normal posterior nasopharyn x. CT/CT head wo con* [id number] IMPRESSION: 1. No evidence of intracranial hemorrhage or mass effect. 2. No acute intracranial findings.
[2024-07-07 14:25] LABS: Procalcitonin 0.04 ng/mL (0-0.5)
[2024-07-07 14:26] LABS: NT Pro B Type Natriuretic Pept 53 pg/mL (0-125)
--- NOTE | 2024-07-07 14:52 | PC.NURSE ---
no transfusion reactions noted during administration of blood. see TAR for vitals. transfusion was started at 50mL/hr during first 30 min and increased to 240mL/hr after 30 min. paper chart of vitals and times attached to pt chart and sent with patient to
--- NOTE | 2024-07-07 14:53 | PC.NURSE ---
report given to Lisa on Med-Surg, no further questions at end of report.
[2024-07-07] MEDS: pantoprazole 40 mg SDV IVP (15:49)
[2024-07-07] MEDS: sucralfate 1 gm/10 mL Oral Liq UDC PO ×2 (15:49→21:41)
--- NOTE | 2024-07-07 15:56 | ECG_ITS ---
[facility] Test Date: 2024-07-07 Pat Name: Radha Maguire Department: Room: 252 Gender: Female Cork Compounder: : 1965 Requested By: Stefan Garg Order Number: [id number] Emily MD: Shar Lou M.D. Measurements Intervals [place] Rate: 83 P: 68 IA: 123 QRS: 58 QRSD: 77 T: 63 QT: 351 QTc: 415 Interpretive Statements SINUS RHYTHM Compared to ECG 07/07/2024 10:43:53 Short IA interval no longer present ST (T wave) deviation no longer present Electronically Signed On 07-07-2024 17:57:56 TAXATION ECONOMIST by Shar Lou M.D. [id number]
[2024-07-07 16:03] LABS: Thyroid Stimulating Hormone 3.78 uIU/mL (0.27-4.20)
[2024-07-07] MEDS: morphine 4 mg/mL SDV 1 mL 2 MG IVP ×2 (17:20→21:42)
[2024-07-07 17:35] LABS: Bacteria Urine None Seen /hpf; Hyaline Casts Urine 0-4 /lpf; RBC Urine 0-2 /hpf (0-2); Squamous Epithelial Cell Urine 0-5 /hpf (0-5); WBC Urine 0-5 /hpf (0-5)
[2024-07-07] MEDS: magnesium citrate Btl 296 mL PO (17:54)
--- NOTE | 2024-07-07 18:15 | PM.CONSULT ---
Providers/Reason For Consult Consulting Physician/Specialty*: Dr. Calvin Caceres, DO/General Surgery Reason for Consult*: Iron deficiency anemia Attending Physician: Stefan Garg MD Primary Care Provider: Braden Owen NP History of Present Illness History of Present Illness Radha Maguire is a 59 year old female who presented to the hospital with weakness and known iron deficiency anemia. She reports that she has had intermittent dark and bright red blood per rectum for many months at least. She reports she is never been able to get a colonoscopy because she has never been able to tolerate a bowel prep without vomiting. She reports that she has had nausea and vomiting since before coming to the hospital. She denies any significant abdominal pain or fever CT abdomen pelvis shows dense constipation up to the splenic flexure with possible stricturing and decompressed distal colon Review of Systems General: Reports: 10 or more systems reviewed and unremarkable except in HPI and below Medications/Allergies Home Medications Medication Instructions Recorded Confirmed Last Taken Type nitroglycerin 0.4 mg sublingual 0.4 mg sublingual Q5M PRN Chest 07/16/23 07/07/24 Unknown History tablet (Nitrostat) Pain tiotropium 2.5 mcg-olodaterol 2.5 2 puff inhalation DAILY 05/16/24 07/07/24 Unknown History mcg/actuation mist for inhalation (Stiolto Respimat) umeclidinium 62.5 mcg-vilanterol 1 ea inhalation DAILY 05/16/24 07/07/24 Unknown History 25 mcg/actuation powdr for inhalation (Anoro Ellipta) tizanidine 2 mg tablet 2 mg PO Q6H PRN Spasms 14 days #30 05/18/24 07/07/24 07/07/24 Rx tabs njlbxlc-tbpbtojnbrxer-twenmmmy 250 2 tab PO Q6H PRN Pain 07/07/24 07/07/24 07/07/24 History mg-250 mg-65 mg tablet (Excedrin Extra Strength) polyethylene glycol 3350 17 gram 17 g PO BID PRN constipation 07/07/24 07/07/24 Unknown History oral powder packet (Miralax) Allergies Allergy/AdvReac Type Severity Reaction Status Date / Time diphenhydramine Allergy Unknown Verified 07/04/24 13:01 [From Benadryl] hydromorphone [From Dilaudid] Allergy ADR-Vomitin Verified 07/04/24 13:01 g ibuprofen [From Motrin] Allergy ALGY-Anaphy Verified 07/04/24 13:01 laxis Penicillins Allergy ALGY-Anaphy Verified 07/04/24 13:01 laxis tramadol Allergy Unknown Verified 07/04/24 13:01 Current Medications Generic Name Dose Route Start Last Admin Trade Name Freq PRN Reason Stop Dose Admin Morphine Sulfate 2 mg 07/07/24 15:10 07/08/24 02:01 Morphine 4 Mg/Ml Sdv 1 Ml IVP 2 mg Q4H PRN Administration SEVERE PAIN Pantoprazole Sodium 40 mg 07/07/24 15:30 07/08/24 04:10 Pantoprazole 40 Mg Sdv IVP 40 mg Q12H ELISABETH Administration Sucralfate 1 gm 07/07/24 15:10 07/08/24 08:51 Sucralfate 1 Gm/10 Ml Oral Liq Udc PO Not Given Q6H ELISABETH PFSH Acute PFSH: Medical History Small bowel obstruction Microcytic anemia Leukocytosis Dyslipidemia Nondisplaced fracture of fifth right metatarsal bone Fracture of fourth metatarsal bone of right foot SOB (shortness of breath) Hx of COPD, 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,quit in 2000 Metatarsal bone fracture Dysphagia Weight loss Peripheral neuropathy Chest pain Abnormal EKG Atherosclerotic heart disease of [place] coronary artery with other forms of angina pectoris GERD (gastroesophageal reflux disease) Benign essential hypertension with target blood pressure below 140/90 Bradycardia AV block, 2nd degree Recurrent vomiting HTN (hypertension) Nausea and vomiting Elevated blood pressure reading Unstable angina Chest pain Palpitations Chest pain Emphysema of lung Quit in 2019 Chronic migraine without aura, intractable, with status migrainosus Surgical History Status post colon resection H/O colonoscopy History of surgery ULCERS AND PART OF STOMACH REMOVED History of colon resection History of hysterectomy History of appendectomy History of cholecystectomy Family History Mother CAD (coronary artery disease), Onset Age: 50 Cancer Lung disease Stroke Denies family history of Diabetes Clotting disorder Dementia Chronic kidney disease (CKD) Suicide Anesthesia complication Bleeding disorder Social History Smoking and tobacco/nicotine status: unknown if used tobacco/nicotine Alcohol intake: former Substance/Drug Use: never Vitals/I&O/Wt Last Vital Signs Temp 97.8 F 07/08/24 12:00 Pulse 101 H 07/08/24 12:00 Resp 15 07/08/24 12:00 BP 117/75 07/08/24 12:00 Pulse Ox 95 07/08/24 12:00 O2 Del Method Room Air 07/08/24 12:00 07/07/24 07/08/24 07/08/24 22:59 06:59 14:59 Intake Total 0 / 250 Balance 0 / 250 Weight last 48 hrs Weight 102 lb Weight 102 lb Weight 102 lb Physical Exam Narrative: General : Patient is well developed , no acute distress, oriented x3 Head : Normal cephalic, a-traumatic. Ears : Pinnae and external canal are normal. Hearing is normal. Eyes : PERRLA, Sclera and injection are normal. No conjunctival discharge. Nose : Mucous membranes are without erythema. Throat : buccal mucosa is normal, gums are without significant recession or hypertrophy. Lungs : Equal chest rise bilaterally, no use of accessory muscles, trachea is midline. Cor : Rate and rhythm are normal. Abdomen : Soft, ND, NT, no g/r/m Extremities : No edema, no cyanosis or clubbing, dorsalis pedis pulses are present bilaterally, non-tender to palpation of calves. Upper extremities are normal bilaterally. Back : non-tender to palpation, no CVA tenderness. Neuro : CN II - XII intact, Upper and lower extremities have equal and full strength Data 07/08/24 03:12 07/08/24 03:12 A&P Assessment and plan (1) Acute blood loss anemia: (2) Iron deficiency anemia: (3) Colon abnormality: Plan Plan for 2-day bowel prep When colon is fully prepped we will proceed with EGD and colonoscopy The risks and benefits of the procedure, including bleeding, infection, intestinal perforation requiring surgery, missed lesion were explained to the patient. The patient is understanding of the risks and wishes to proceed. Coding Level of Care Code 30798 Diagnoses Acute blood loss anemia D62 Iron deficiency anemia D50.9 Colon abnormality K63.9
[2024-07-07 18:17] LABS: Add Urine Culture? No; Add Urine Microscopic? YES; Bilirubin Urine Negative (Negative); Blood Urine Negative (Negative); Glucose Urine UA Negative (Normal); Ketones Urine Negative (Negative); Leukocyte Esterase Urine Negative (Negative); Nitrate Urine Negative (Negative); Protein Urine Negative (Negative); Specific Gravity, Urine 1.072 (1.005-1.030); Urine Appearance Clear (CLEAR); Urine Color Yellow (Yellow)
--- NOTE | 2024-07-07 19:46 | ECG_ITS ---
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 Measurements Intervals [place] Rate: 87 P: 67 TN: 124 QRS: 31 QRSD: 80 T: 44 QT: 336 QTc: 406 Interpretive Statements SINUS RHYTHM Compared to ECG 07/07/2024 15:56:03 No significant changes Electronically Signed On 07-08-2024 17:02:44 CARBON PAPER COATING SUPERVISOR by Meño Neff M.D. [id number]
[2024-07-07 21:33] LABS: INR 0.89 (0.8-1.2); Partial Thromboplastin Time 25.6 SECONDS (23.9-36.7)
[2024-07-07 21:48] LABS: Troponin(5th) Baseline < 6 ng/L (0-10)
[2024-07-07 21:52] LABS: Estmated Average Glucose 97
[2024-07-08] VITALS (13 sets, daily range): BP systolic 107–127; BP diastolic 66–82; PULSE 86–104; RESP 15–18; TEMP 36.6–37; O2SAT 93–97
[2024-07-08 00:21] LABS: Troponin 5 2HR Delta 0.00001 ABS# (0-10)
[2024-07-08 00:22] LABS: Lactic Sepsis W/Reflex 0.8 mmol/L (0.5-2.2)
--- NOTE | 2024-07-08 00:45 | PC.NURSE ---
Pt was attempting to finish the mag citrate bowel prep before she went NPO at midnight. She drunk about 3/4 of it and then had 3 episodes of emesis. Pt told this RN this is what always happens. I only have half my colon and this stuff just makes me sick. I am not drinking anymore of that stuff. While the pt was vomiting her HR dropped to 20s-30s, tele strip is posted in the chart. This RN got the pt cleaned up and back into bed resting. This RN WCTM until the end of this RNs shift.
[2024-07-08] MEDS: morphine 4 mg/mL SDV 1 mL 2 MG IVP ×3 (02:01→21:51)
[2024-07-08 03:18] LABS: Basophils % 0.1 %; Eosinophils # 0.2 10^3/uL (0.0-0.8); Eosinophils % 2.7 %; Hematocrit 36.2 % (36-47); Lymphocytes # 1.2 10^3/uL (0.8-4.8); Lymphocytes % 16.6 %; Mean Corpuscular HGB Conc 30.1 g/dL (30-55); Mean Corpuscular Hemoglobin 22.2 pg (27-33); Mean Corpuscular Volume 73.9 fl (85-98); Mean Platelet Volume 10.2 fL (7.4-10.4); Monocytes # 0.5 10^3/uL (0.2-0.9); Neutrophils # 5.33 10^3/uL (1.8-7.7); Neutrophils % 73.3 %; Nucleated Red Blood Cells % 0 %; Platelet Count 245 10^3/cmm (157-399); Red Cell Distribution Width 18.2 % (12.1-15.1); White Blood Count 7.28 10^3/uL (3.29-11.43)
[2024-07-08 03:36] LABS: Alanine Aminotransferase 12 U/L (0-33); Albumin Level 3.9 g/dL (3.5-5.2); Alkaline Phosphatase 101 U/L (35-105); Anion Gap 13.2 (5-19); Aspartate Amino Transferase 18 U/L (0-32); Blood Urea Nitrogen 11 mg/dL (6-20); Calcium 8.4 mg/dL (8.5-10.5); Carbon Dioxide 23 mmol/L (22-29); Chloride 103 mmol/L (98-107); Creatinine Clr Calc Pharmacy 88.4837; Glomerular Filtration Rate 126.3 mL/min (90-130); Glucose 105 mg/dL (65-115); Magnesium 2.5 mg/dL (1.7-2.3); Osmolality Calculated 280 mOsm/kg (285-295); Phosphorus 2.4 mg/dL (2.5-4.5); Potassium 4.2 mmol/L (3.5-5.1); Sodium 135 mmol/L (136-145); Total Bilirubin 0.9 mg/dL (0.15-1.2); Total Protein 5.9 g/dL (6.6-8.7)
[2024-07-08 03:51] LABS: Troponin 5 6HR Delta 0.00001 ng/L (0-12)
[2024-07-08] MEDS: pantoprazole 40 mg SDV IVP (04:10)
--- NOTE | 2024-07-08 06:43 | P.PN_ITS ---
Subjective 2 Subjective: Patient was seen this morning, she tells me that she felt nauseous throughout the night and is hard for her to keep the bowel prep down, we discussed the importance of taking the bowel prep, importance of good quality colonoscopy, she voices understanding, no fevers, no chills, no cough Vitals/I&O/Wt Last Vital Signs Temp 98.2 F 07/08/24 04:00 Pulse 90 07/08/24 04:00 Resp 18 07/08/24 04:00 BP 107/66 07/08/24 04:00 Pulse Ox 95 07/08/24 04:00 O2 Del Method Room Air 07/08/24 04:00 07/07/24 07/07/24 07/08/24 14:59 22:59 06:59 Intake Total 250 / 250 0 / 250 Balance 250 / 250 0 / 250 Weight last 48 hrs Weight 46.266 kg Weight 46.266 kg Weight 46.266 kg Physical Exam 2 Const: COMMON NORMALS: no acute distress and patient oriented x3 Resp: COMMON NORMALS: normal respiratory effort, No retractions, No use of accessory muscles and clear to auscultation bilaterally AUSCULTATION: clear to auscultation bilaterally Cardio: COMMON NORMALS: regular rate, regular rhythm, S1 normal heart sound present and S2 normal heart sound present RATE: regular rate RHYTHM: r egular rhythm HEART SOUNDS: S1 normal heart sound present and S2 normal heart sound present GI: COMMON NORMALS: Normal to inspection, nondistended, normoactive bowel sounds present, Soft to palpation and non-tender PALPATION: Yes Soft to palpation Extremity: COMMON NORMALS: no pedal edema Neuro: COMMON NORMALS: patient oriented x3 Psych: COMMON NORMALS: mental status grossly normal Data 07/08/24 03:12 07/08/24 03:12 A&P Assessment and plan (1) Dyslipidemia: (2) Anemia: (3) Iron deficiency anemia: (4) Microcytic anemia: (5) Syncope: Plan Syncopal episode -Likely orthostatic hypotension, with a combination of low hemoglobin -But could be cardiovascular etiology, cath in 2021 showed mild diffuse coronary artery disease -History of secondary AV block, telemetry monitoring -Orthostatic vitals improving after blood transfusion -Cardiac echo CONCLUSIONS Normal left ventricular size and systolic function, EF 68%.no regional wall motion abnormalities. . Normal cardiac chamber sizes. No intracardiac masses. Estimated pulmonary artery peak systolic pressure within normal limits No pericardial effusion. No significant valvular lesions. -Carotid artery ultrasound CONCLUSIONS Right proximal to mid ICA stenosis 50-69%. Moderate atheromatous plaque right carotid bulb/ICA. Left ICA stenosis <50%. Moderate atheromatous plaque left carotid bulb/ICA. Normal antegrade Doppler flow noted in the right vertebral artery. Normal antegrade Doppler flow noted in the left vertebral artery head CT - CT/CT head wo con* [id number] IMPRESSION: 1. No evidence of intracranial hemorrhage or mass effect. 2. No acute intracranial findings. -Monitor hemoglobin -Troponin series unremarkable -UA within normal limits -sHe is receiving blood we will avoid IV fluids due to risk of fluid overload Acute on chronic anemia with syncopal episode, hemoglobin 10.9 -Status post 2 units PRBC -Monitor hemoglobin closely -General Surgery consulted for EGD and colonoscopy -Protonix, Carafate -CT scan findings as below, general surgery consulted for colonoscopy, will require a 2-day prep CT/CT abdomen pelvis w con* [id number] IMPRESSION: 1. Dense constipation involving the cecum and RIGHT colon and transverse colon extending to the splenic flexure. Descending colon and sigmoid colon are decompressed. Suggestion of a possible stricture or transition point just distal to the splenic flexure. Recommend further evaluation with colonoscopy to evaluate for stricture or obstructing lesion. 2. Fecalization of the terminal ileum. Small bowel is otherwise decompressed. 3. Prior postoperative changes described above. 4. No other acute findings. -Patient reports a anaphylactoid type of reaction to IV iron we will hold off for now Low BMI 17 evidence of protein calorie malnutrition -Workup as above Patient is DNR/DNI, confirmed with patient multiple times she does not want to have aggressive intervention SCDs for DVT prophylaxis, Lovenox relatively contraindicated given acute anemia Plan for today continue prep for abdominal colonoscopy, will require a 2-day prep, monitor hemoglobin, monitor clinical status, Attestations 2 Medical Necessity Statement*: Patient requires hospitalization for acute anemia, with low BMI requiring colonoscopy and EGD Diagnoses Dyslipidemia E78.5 Anemia D64.9 Iron deficiency anemia D50.9 Microcytic anemia D50.9 Syncope R55
[2024-07-08] MEDS: peg /e-lyte soln 4,000 mL Btl 4000 ML PO (10:07)
--- NOTE | 2024-07-08 14:08 | PC.NURSE ---
Pt refused orthostatic vitals and stated I cannot stand or sit up or I will puke everywhere .
--- NOTE | 2024-07-08 14:31 | P.PN_ITS ---
Subjective 2 Subjective: Patient has been having significant nausea and vomiting since drinking magnesium citrate last night Vitals/I&O/Wt Last Vital Signs Temp 97.8 F 07/08/24 12:00 Pulse 101 H 07/08/24 12:00 Resp 15 07/08/24 12:00 BP 117/75 07/08/24 12:00 Pulse Ox 95 07/08/24 12:00 O2 Del Method Room Air 07/08/24 12:00 07/07/24 07/08/24 07/08/24 22:59 06:59 14:59 Intake Total 0 / 250 Balance 0 / 250 Weight last 48 hrs Weight 102 lb Weight 102 lb Weight 102 lb Physical Exam 2 Narrative: General: Mild distress and vomiting, awake alert and oriented x 3 Abdomen: Soft, nondistended, nontender Data 07/08/24 03:12 07/08/24 03:12 A&P Assessment and plan (1) Acute blood loss anemia: (2) Iron deficiency anemia: (3) Colon abnormality: Plan NG tube to low remittent suction due to persistent vomiting. Once NG output has reduced we will plan for 2-day bowel prep When colon is fully prepped we will proceed with EGD and colonoscopy The risks and benefits of the procedure, including bleeding, infection, intestinal perforation requiring surgery, missed lesion were explained to the patient. The patient is understanding of the risks and wishes to proceed. Attestations 2 Medical Necessity Statement*: Per primary Coding Level of Care Code 49126 Diagnoses Acute blood loss anemia D62 Iron deficiency anemia D50.9 Colon abnormality K63.9
[2024-07-08 18:03] LABS: Hematocrit 43.4 % (36-47)
--- NOTE | 2024-07-08 19:29 | XRR_ITS ---
PROCEDURE INFORMATION: Exam: XR Chest Exam date and time: 07/08/2024 7:43 PM Age: 59 years old Clinical indication: Device placement; Ng tube; Prior surgery; Surgery date: 6+ months; Surgery type: Gb, colon resection, appy, hyst, ulcers and part of stomach removed; Additional info: Ng tube placement TECHNIQUE: Imaging protocol: Radiologic exam of the chest. Views: 1 view. COMPARISON: CR XR chest LT decubitus [id number] 05/15/2024 1:34 PM FINDINGS: Tubes, catheters and devices: Nasogastric tube tip is in the stomach with the side port below the GE junction. Surgical clips again overlie the upper abdomen. Lungs: Unremarkable. No consolidation. Pleural spaces: Unremarkable. No definite pleural effusion, though the costophrenic angles are excluded from the field of view. No pneumothorax. Heart/Mediastinum: Stable cardiomediastinal silhouette. Bones/joints: Unremarkable. XR/XR chest 1V portable [id number] IMPRESSION: NG tube tip in the stomach.
[2024-07-08] MEDS: ondansetron 2 mg/ML SDV 2 mL 4 MG IVP (21:00)
[2024-07-08] MEDS: Fleet Enema 133 mL Enema PR (23:08)
[2024-07-08] MEDS: metoclopramide 5 mg/mL SDV 2 mL 10 MG IVP (23:58)
[2024-07-09] VITALS (12 sets, daily range): BP systolic 115–134; BP diastolic 73–77; PULSE 75–110; RESP 14–18; TEMP 36.4–37.4; O2SAT 94–96
[2024-07-09] MEDS: morphine 4 mg/mL SDV 1 mL 2 MG IVP ×3 (02:56→19:51)
[2024-07-09] MEDS: pantoprazole 40 mg SDV IVP ×2 (02:56→15:49)
[2024-07-09] MEDS: ondansetron 2 mg/ML SDV 2 mL 4 MG IVP (02:59)
[2024-07-09 05:03] LABS: Basophils % 0.1 %; Eosinophils % 0.2 %; Hematocrit 39.5 % (36-47); Lymphocytes # 0.8 10^3/uL (0.8-4.8); Lymphocytes % 9.3 %; Mean Corpuscular HGB Conc 29.9 g/dL (30-55); Mean Corpuscular Hemoglobin 22.2 pg (27-33); Mean Corpuscular Volume 74.4 fl (85-98); Mean Platelet Volume 10.1 fL (7.4-10.4); Monocytes # 0.6 10^3/uL (0.2-0.9); Monocytes % 7.5 %; Neutrophils # 6.85 10^3/uL (1.8-7.7); Neutrophils % 82.5 %; Nucleated Red Blood Cells % 0 %; Platelet Count 280 10^3/cmm (157-399); Red Blood Count 5.31 10^6/uL (3.85-5.65); Red Cell Distribution Width 20.3 % (12.1-15.1)
[2024-07-09 05:20] LABS: Alanine Aminotransferase 9 U/L (0-33); Albumin Level 4.2 g/dL (3.5-5.2); Alkaline Phosphatase 111 U/L (35-105); Anion Gap 14.9 (5-19); Aspartate Amino Transferase 14 U/L (0-32); Blood Urea Nitrogen 12 mg/dL (6-20); Calcium 9.1 mg/dL (8.5-10.5); Carbon Dioxide 24 mmol/L (22-29); Chloride 102 mmol/L (98-107); Creatinine Clr Calc Pharmacy 88.4837; Globulin 2.4 g/dL (1.3-4.6); Glomerular Filtration Rate 126.3 mL/min (90-130); Glucose 113 mg/dL (65-115); Magnesium 2.5 mg/dL (1.7-2.3); Osmolality Calculated 285 mOsm/kg (285-295); Potassium 3.9 mmol/L (3.5-5.1); Sodium 137 mmol/L (136-145); Total Bilirubin 0.5 mg/dL (0.15-1.2); Total Protein 6.6 g/dL (6.6-8.7)
[2024-07-09] MEDS: dextrose 5%-lactated ringers 1,000 ML 150 ML IV ×3 (09:25→22:35)
[2024-07-09] MEDS: metoclopramide 5 mg/mL SDV 2 mL 10 MG IVP (09:31)
--- NOTE | 2024-07-09 10:24 | P.PN_ITS ---
Subjective 2 Subjective: Patient vomiting still even around NG tube. Denies any abdominal pain Vitals/I&O/Wt Last Vital Signs Temp 98.7 F 07/09/24 08:00 Pulse 97 07/09/24 08:00 Resp 16 07/09/24 08:00 BP 116/74 07/09/24 08:00 Pulse Ox 94 07/09/24 08:00 O2 Del Method Room Air 07/09/24 08:00 07/08/24 07/09/24 07/09/24 22:59 06:59 14:59 Output Total 80 / 80 Balance -80 / -80 Weight last 48 hrs Weight 95 lb 1 oz Weight 102 lb Weight 102 lb Weight 102 lb Physical Exam 2 Narrative: General: Mild distress and vomiting, awake alert and oriented x 3 Abdomen: Soft, nondistended, nontender Data 07/09/24 04:18 07/09/24 04:18 A&P Assessment and plan (1) Acute blood loss anemia: (2) Iron deficiency anemia: (3) Colon abnormality: Plan NG tube to low remittent suction due to persistent vomiting. Once NG output has reduced we will plan for 2-day bowel prep When colon is fully prepped we will proceed with EGD and colonoscopy The risks and benefits of the procedure, including bleeding, infection, intestinal perforation requiring surgery, missed lesion were explained to the patient. The patient is understanding of the risks and wishes to proceed. Attestations 2 Medical Necessity Statement*: Per primary Coding Level of Care Code 61852 Diagnoses Acute blood loss anemia D62 Iron deficiency anemia D50.9 Colon abnormality K63.9
--- NOTE | 2024-07-09 16:14 | P.PN_ITS ---
Subjective 2 Subjective: Patient continues to be nauseous and has had emesis. Noted bilious output in the NGT. Medications: Reviewed: Yes Vitals/I&O/Wt Last Vital Signs Temp 97.8 F 07/09/24 12:00 Pulse 75 07/09/24 14:00 Resp 17 07/09/24 12:43 BP 134/76 07/09/24 12:00 Pulse Ox 96 07/09/24 12:00 O2 Del Method Room Air 07/09/24 12:00 07/09/24 07/09/24 07/09/24 06:59 14:59 22:59 Intake Total 967.5 / 967.5 Output Total 80 / 80 Balance -80 / -80 967.5 / 887.5 Weight last 48 hrs Weight 43.12 kg Weight 46.266 kg Physical Exam 2 Narrative: General: Ill-appearing lady, NGT in place to suction HEENT: PERRLA, pupils bilaterally equal and reactive, pallors not present Chest: Normal vesicular breath sounds, no added sounds, equal good air entry bilaterally CVS: S1-S2 regular, no murmurs, no tachycardia, no gallops, no rubs Abdomen: Soft, nontender, no organomegaly, bowel sounds present Neuro: No focal deficits, no facial deformity Data 07/09/24 04:18 07/09/24 04:18 A&P Assessment and plan (1) Dyslipidemia: (2) Anemia: (3) Iron deficiency anemia: (4) Microcytic anemia: (5) Syncope: Plan Syncopal episode -Likely orthostatic hypotension, with a combination of low hemoglobin -But could be cardiovascular etiology, cath in 2021 showed mild diffuse coronary artery disease -History of secondary AV block, telemetry monitoring -Orthostatic vitals improving after blood transfusion -Cardiac echo CONCLUSIONS Normal left ventricular size and systolic function, EF 68%.no regional wall motion abnormalities. . Normal cardiac chamber sizes. No intracardiac masses. Estimated pulmonary artery peak systolic pressure within normal limits No pericardial effusion. No significant valvular lesions. -Carotid artery ultrasound CONCLUSIONS Right proximal to mid ICA stenosis 50-69%. Moderate atheromatous plaque right carotid bulb/ICA. Left ICA stenosis <50%. Moderate atheromatous plaque left carotid bulb/ICA. Normal antegrade Doppler flow noted in the right vertebral artery. Normal antegrade Doppler flow noted in the left vertebral artery head CT - CT/CT head wo con* [id number] IMPRESSION: 1. No evidence of intracranial hemorrhage or mass effect. 2. No acute intracranial findings. -Monitor hemoglobin -Troponin series unremarkable -UA within normal limits -sHe is receiving blood we will avoid IV fluids due to risk of fluid overload Acute on chronic anemia with syncopal episode, hemoglobin 10.9 -Status post 2 units PRBC -Monitor hemoglobin closely -General Surgery consulted for EGD and colonoscopy -Protonix, Carafate -CT scan findings as below, general surgery consulted for colonoscopy, will require a 2-day prep CT/CT abdomen pelvis w con* [id number] IMPRESSION: 1. Dense constipation involving the cecum and RIGHT colon and transverse colon extending to the splenic flexure. Descending colon and sigmoid colon are decompressed. Suggestion of a possible stricture or transition point just distal to the splenic flexure. Recommend further evaluation with colonoscopy to evaluate for stricture or obstructing lesion. 2. Fecalization of the terminal ileum. Small bowel is otherwise decompressed. 3. Prior postoperative changes described above. 4. No other acute findings. -Patient reports a anaphylactoid type of reaction to IV iron we will hold off for now Low BMI 17 evidence of protein calorie malnutrition -Workup as above Patient is DNR/DNI, confirmed with patient multiple times she does not want to have aggressive intervention SCDs for DVT prophylaxis, Lovenox relatively contraindicated given acute anemia Plan for today continue prep for abdominal colonoscopy, will require a 2-day prep, monitor hemoglobin, monitor clinical status, 07/09/2024. Hemoglobin stable at 11.8. Patient still has NGT in place connected to suction. Awaiting reduction in the NGT output to be able to proceed with bowel prep and undergo EGD and colonoscopy due to high suspicion for stricture, possible colon cancer. Attestations 2 Medical Necessity Statement*: Continued admission to maintain NGT to suction, awaiting improvement to proceed with EGD and colonoscopy Coding Level of Care Code Acute Code for Chg Fwd Moderate MDM includes number and complexity of problems actively addressed during encounter, amount and/or complexity of data reviewed/ordered and described risk of complication, morbidity or mortality of management as documented Diagnoses Dyslipidemia E78.5 Anemia D64.9 Iron deficiency anemia D50.9 Microcytic anemia D50.9 Syncope R55
[2024-07-10] VITALS (14 sets, daily range): BP systolic 115–134; BP diastolic 69–80; PULSE 67–99; RESP 16–18; TEMP 36.6–36.8; O2SAT 93–97
[2024-07-10] MEDS: morphine 4 mg/mL SDV 1 mL 2 MG IVP ×5 (00:45→20:42)
[2024-07-10] MEDS: pantoprazole 40 mg SDV IVP ×2 (03:56→15:21)
[2024-07-10] MEDS: dextrose 5%-lactated ringers 1,000 ML 150 ML IV ×3 (04:53→18:40)
[2024-07-10 06:15] LABS: Alanine Aminotransferase 9 U/L (0-33); Albumin Level 3.9 g/dL (3.5-5.2); Alkaline Phosphatase 104 U/L (35-105); Aspartate Amino Transferase 17 U/L (0-32); Blood Urea Nitrogen 6 mg/dL (6-20); Calcium 9.3 mg/dL (8.5-10.5); Carbon Dioxide 27 mmol/L (22-29); Chloride 103 mmol/L (98-107); Creatinine Clr Calc Pharmacy 82.4995; Globulin 2.4 g/dL (1.3-4.6); Glomerular Filtration Rate 126.3 mL/min (90-130); Glucose 125 mg/dL (65-115); Magnesium 1.8 mg/dL (1.7-2.3); Osmolality Calculated 289 mOsm/kg (285-295); Phosphorus 2.6 mg/dL (2.5-4.5); Sodium 140 mmol/L (136-145); Total Bilirubin 0.5 mg/dL (0.15-1.2); Total Protein 6.3 g/dL (6.6-8.7)
[2024-07-10 06:16] LABS: Anion Gap 13.7 (5-19); Potassium 3.7 mmol/L (3.5-5.1)
[2024-07-10 09:49] LABS: Basophils % 0.3 %; Eosinophils # 0.2 10^3/uL (0.0-0.8); Eosinophils % 2.4 %; Hematocrit 40.3 % (36-47); Lymphocytes # 1.5 10^3/uL (0.8-4.8); Lymphocytes % 19.3 %; Mean Corpuscular HGB Conc 29.3 g/dL (30-55); Mean Corpuscular Hemoglobin 22.4 pg (27-33); Mean Corpuscular Volume 76.6 fl (85-98); Monocytes # 0.9 10^3/uL (0.2-0.9); Monocytes % 11.4 %; Neutrophils # 5.04 10^3/uL (1.8-7.7); Neutrophils % 66.5 %; Nucleated Red Blood Cells % 0 %; Platelet Count 250 10^3/cmm (157-399); Red Blood Count 5.26 10^6/uL (3.85-5.65); Red Cell Distribution Width 20.8 % (12.1-15.1); White Blood Count 7.57 10^3/uL (3.29-11.43)
[2024-07-10] MEDS: metoclopramide 5 mg/mL SDV 2 mL 10 MG IVP (10:54)
--- NOTE | 2024-07-10 10:59 | P.PN_ITS ---
Subjective 2 Subjective: No further emesis around the tube. Denies any abdominal pain Vitals/I&O/Wt Last Vital Signs Temp 98.2 F 07/10/24 08:18 Pulse 85 07/10/24 09:29 Resp 16 07/10/24 10:20 BP 130/77 07/10/24 08:18 Pulse Ox 95 07/10/24 09:29 O2 Del Method Room Air 07/10/24 09:29 07/09/24 07/10/24 07/10/24 22:59 06:59 14:59 Intake Total 1967.5 / 1967.5 945 / 2912.5 Output Total 400 / 480 Balance 1567.5 / 1487.5 945 / 2432.5 Weight last 48 hrs Weight 95 lb 1.6 oz Weight 95 lb 1 oz Physical Exam 2 Narrative: General: Mild distress and vomiting, awake alert and oriented x 3 Abdomen: Soft, nondistended, nontender Data 07/10/24 09:32 07/10/24 05:10 A&P Assessment and plan (1) Acute blood loss anemia: (2) Iron deficiency anemia: (3) Colon abnormality: Plan 1 gallon of GoLytely via NGT. Place NGT back to LIWS if emesis When colon is fully prepped we will proceed with EGD and colonoscopy The risks and benefits of the procedure, including bleeding, infection, intestinal perforation requiring surgery, missed lesion were explained to the patient. The patient is understanding of the risks and wishes to proceed. Attestations 2 Medical Necessity Statement*: Per primary Coding Level of Care Code 45217 Diagnoses Acute blood loss anemia D62 Iron deficiency anemia D50.9 Colon abnormality K63.9
--- NOTE | 2024-07-10 11:34 | P.PN_ITS ---
Subjective 2 Subjective: no new complaints. No vomiting today. Starting bowel prep in anticipation of endoscopy Medications: Reviewed: Yes Vitals/I&O/Wt Last Vital Signs Temp 98.2 F 07/10/24 08:18 Pulse 85 07/10/24 09:29 Resp 16 07/10/24 10:20 BP 130/77 07/10/24 08:18 Pulse Ox 95 07/10/24 09:29 O2 Del Method Room Air 07/10/24 09:29 07/09/24 07/10/24 07/10/24 22:59 06:59 14:59 Intake Total 1967.5 / 1967.5 945 / 2912.5 Output Total 400 / 480 Balance 1567.5 / 1487.5 945 / 2432.5 Weight last 48 hrs Weight 43.137 kg Weight 43.12 kg Physical Exam 2 Narrative: General: No acute distress HEENT: PERRLA, pupils bilaterally equal and reactive, pallors not present Chest: Normal vesicular breath sounds, no added sounds, equal good air entry bilaterally CVS: S1-S2 regular, no murmurs, no tachycardia, no gallops, no rubs Abdomen: Soft, nontender, no organomegaly, bowel sounds present Neuro: No focal deficits, no facial deformity Data 07/10/24 09:32 07/10/24 05:10 A&P Assessment and plan (1) Dyslipidemia: (2) Anemia: (3) Iron deficiency anemia: (4) Microcytic anemia: (5) Syncope: Plan Syncopal episode -Likely orthostatic hypotension, with a combination of low hemoglobin -But could be cardiovascular etiology, cath in 2021 showed mild diffuse coronary artery disease -History of secondary AV block, telemetry monitoring -Orthostatic vitals improving after blood transfusion -Cardiac echo CONCLUSIONS Normal left ventricular size and systolic function, EF 68%.no regional wall motion abnormalities. . Normal cardiac chamber sizes. No intracardiac masses. Estimated pulmonary artery peak systolic pressure within normal limits No pericardial effusion. No significant valvular lesions. -Carotid artery ultrasound CONCLUSIONS Right proximal to mid ICA stenosis 50-69%. Moderate atheromatous plaque right carotid bulb/ICA. Left ICA stenosis <50%. Moderate atheromatous plaque left carotid bulb/ICA. Normal antegrade Doppler flow noted in the right vertebral artery. Normal antegrade Doppler flow noted in the left vertebral artery head CT - CT/CT head wo con* [id number] IMPRESSION: 1. No evidence of intracranial hemorrhage or mass effect. 2. No acute intracranial findings. -Monitor hemoglobin -Troponin series unremarkable -UA within normal limits -sHe is receiving blood we will avoid IV fluids due to risk of fluid overload Acute on chronic anemia with syncopal episode, hemoglobin 10.9 -Status post 2 units PRBC -Monitor hemoglobin closely -General Surgery consulted for EGD and colonoscopy -Protonix, Carafate -CT scan findings as below, general surgery consulted for colonoscopy, will require a 2-day prep CT/CT abdomen pelvis w con* [id number] IMPRESSION: 1. Dense constipation involving the cecum and RIGHT colon and transverse colon extending to the splenic flexure. Descending colon and sigmoid colon are decompressed. Suggestion of a possible stricture or transition point just distal to the splenic flexure. Recommend further evaluation with colonoscopy to evaluate for stricture or obstructing lesion. 2. Fecalization of the terminal ileum. Small bowel is otherwise decompressed. 3. Prior postoperative changes described above. 4. No other acute findings. -Patient reports a anaphylactoid type of reaction to IV iron we will hold off for now Low BMI 17 evidence of protein calorie malnutrition -Workup as above Patient is DNR/DNI, confirmed with patient multiple times she does not want to have aggressive intervention SCDs for DVT prophylaxis, Lovenox relatively contraindicated given acute anemia Plan for today continue prep for abdominal colonoscopy, will require a 2-day prep, monitor hemoglobin, monitor clinical status, 07/09/2024. Hemoglobin stable at 11.8. Patient still has NGT in place connected to suction. Awaiting reduction in the NGT output to be able to proceed with bowel prep and undergo EGD and colonoscopy due to high suspicion for stricture, possible colon cancer. 07/10/2024. Hemoglobin stable at 11.8. Patient has NGT in place. No further vomiting episodes. Getting bowel prep via NGT today in anticipation of undergoing endoscopic evaluation tomorrow. Hemodynamically stable afebrile. Attestations 2 Medical Necessity Statement*: Continued admission for bowel prep today, anticipated colonoscopy tomorrow Coding Level of Care Code Acute Code for Chg Fwd Straight Forward/Low MDM includes number and complexity of problems actively addressed during encounter, amount and/or complexity of data reviewed/ordered and described risk of complication, morbidity or mortality of management as documented Diagnoses Dyslipidemia E78.5 Anemia D64.9 Iron deficiency anemia D50.9 Microcytic anemia D50.9 Syncope R55
[2024-07-10] MEDS: peg /e-lyte soln 4,000 mL Btl 4000 ML PO (12:17)
[2024-07-10] MEDS: ondansetron 2 mg/ML SDV 2 mL 4 MG IVP (15:31)
--- NOTE | 2024-07-10 17:16 | XRR_ITS ---
PROCEDURE INFORMATION: Exam: XR Chest Exam date and time: 07/10/2024 5:40 PM Age: 59 years old Clinical indication: Device placement; Ng tube; Prior surgery; Surgery date: 6+ months; Surgery type: Gb, colon resection, appy, hyst, ulcers and part of stomach removed; Additional info: Ng placement TECHNIQUE: Imaging protocol: Radiologic exam of the chest. Views: 1 view. COMPARISON: CR (CHEST, ) 07/08/2024 7:43 PM FINDINGS: Lungs: No focal consolidation. Pleural spaces: No evidence of pneumothorax. No evidence of pleural effusion. Heart/Mediastinum: Cardiomediastinal silhouette is within normal limits. Enteric tube in place with tip in the region of the gastric body and side hole distal to the GE junction. Stable clips noted in the upper abdomen. Bones/joints: No evidence of acute osseous abnormality. XR/XR chest 1V portable [id number] IMPRESSION: 1. Enteric tube in place with tip in the region of the gastric body and side hole distal to the GE junction.
[2024-07-11] VITALS (13 sets, daily range): BP systolic 121–133; BP diastolic 68–83; PULSE 81–100; RESP 15–18; TEMP 36.3–36.8; O2SAT 94–98
[2024-07-11] MEDS: ondansetron 2 mg/ML SDV 2 mL 4 MG IVP (00:03)
[2024-07-11] MEDS: morphine 4 mg/mL SDV 1 mL 2 MG IVP ×5 (01:01→21:39)
[2024-07-11] MEDS: dextrose 5%-lactated ringers 1,000 ML 150 ML IV ×3 (01:44→15:33)
[2024-07-11] MEDS: pantoprazole 40 mg SDV IVP ×2 (04:19→15:34)
[2024-07-11] MEDS: sucralfate 1 gm/10 mL Oral Liq UDC PO ×3 (09:25→20:03)
[2024-07-11] MEDS: magnesium citrate Btl 296 mL PO (14:11)
--- NOTE | 2024-07-11 15:33 | P.PN_ITS ---
Subjective 2 Subjective: Bowel prep is going well. She is almost coming out clean. No further nausea or vomiting Vitals/I&O/Wt Last Vital Signs Temp 97.8 F 07/11/24 12:35 Pulse 89 07/11/24 12:35 Resp 16 07/11/24 12:35 BP 133/74 07/11/24 12:35 Pulse Ox 97 07/11/24 12:35 O2 Del Method Room Air 07/11/24 12:35 07/11/24 07/11/24 07/11/24 06:59 14:59 22:59 Intake Total 1000 / 3000 2019 Output Total 50 / 50 Balance 1000 / 3000 1969 / 1969 Weight last 48 hrs Weight 107 lb 6.4 oz Weight 95 lb 1.6 oz Physical Exam 2 Narrative: General: Mild distress and vomiting, awake alert and oriented x 3 Abdomen: Soft, nondistended, nontender Data 07/10/24 09:32 07/10/24 05:10 A&P Assessment and plan (1) Acute blood loss anemia: (2) Iron deficiency anemia: (3) Colon abnormality: Plan Tomorrow for EGD and colonoscopy The risks and benefits of the procedure, including bleeding, infection, intestinal perforation requiring surgery, missed lesion were explained to the patient. The patient is understanding of the risks and wishes to proceed. Attestations 2 Medical Necessity Statement*: Per primary Coding Level of Care Code 80992 Diagnoses Acute blood loss anemia D62 Iron deficiency anemia D50.9 Colon abnormality K63.9
--- NOTE | 2024-07-11 17:53 | P.PN_ITS ---
Subjective 2 Subjective: No new complaints. Continuing bowel prep to enable endoscopy. Medications: Reviewed: Yes Vitals/I&O/Wt Last Vital Signs Temp 97.4 F L 07/11/24 16:21 Pulse 89 07/11/24 16:21 Resp 16 07/11/24 17:35 BP 130/81 07/11/24 16:21 Pulse Ox 98 07/11/24 16:21 O2 Del Method Room Air 07/11/24 16:21 07/11/24 07/11/24 07/11/24 06:59 14:59 22:59 Intake Total 1000 / 3000 2019 1820 / 3840 Output Total 50 / 50 Balance 1000 / 3000 1969 1820 / 3790 Weight last 48 hrs Weight 48.716 kg Weight 43.137 kg Physical Exam 2 Narrative: General: No acute distress HEENT: PERRLA, pupils bilaterally equal and reactive, pallors not present Chest: Normal vesicular breath sounds, no added sounds, equal good air entry bilaterally CVS: S1-S2 regular, no murmurs, no tachycardia, no gallops, no rubs Abdomen: Soft, nontender, no organomegaly, bowel sounds present Neuro: No focal deficits, no facial deformity Data 07/13/24 05:04 07/10/24 05:10 A&P Assessment and plan (1) Dyslipidemia: (2) Anemia: (3) Iron deficiency anemia: (4) Microcytic anemia: (5) Syncope: Plan Syncopal episode -Likely orthostatic hypotension, with a combination of low hemoglobin -But could be cardiovascular etiology, cath in 2021 showed mild diffuse coronary artery disease -History of secondary AV block, telemetry monitoring -Orthostatic vitals improving after blood transfusion -Cardiac echo CONCLUSIONS Normal left ventricular size and systolic function, EF 68%.no regional wall motion abnormalities. . Normal cardiac chamber sizes. No intracardiac masses. Estimated pulmonary artery peak systolic pressure within normal limits No pericardial effusion. No significant valvular lesions. -Carotid artery ultrasound CONCLUSIONS Right proximal to mid ICA stenosis 50-69%. Moderate atheromatous plaque right carotid bulb/ICA. Left ICA stenosis <50%. Moderate atheromatous plaque left carotid bulb/ICA. Normal antegrade Doppler flow noted in the right vertebral artery. Normal antegrade Doppler flow noted in the left vertebral artery head CT - CT/CT head wo con* [id number] IMPRESSION: 1. No evidence of intracranial hemorrhage or mass effect. 2. No acute intracranial findings. -Monitor hemoglobin -Troponin series unremarkable -UA within normal limits -sHe is receiving blood we will avoid IV fluids due to risk of fluid overload Acute on chronic anemia with syncopal episode, hemoglobin 10.9 -Status post 2 units PRBC -Monitor hemoglobin closely -General Surgery consulted for EGD and colonoscopy -Protonix, Carafate -CT scan findings as below, general surgery consulted for colonoscopy, will require a 2-day prep CT/CT abdomen pelvis w con* [id number] IMPRESSION: 1. Dense constipation involving the cecum and RIGHT colon and transverse colon extending to the splenic flexure. Descending colon and sigmoid colon are decompressed. Suggestion of a possible stricture or transition point just distal to the splenic flexure. Recommend further evaluation with colonoscopy to evaluate for stricture or obstructing lesion. 2. Fecalization of the terminal ileum. Small bowel is otherwise decompressed. 3. Prior postoperative changes described above. 4. No other acute findings. -Patient reports a anaphylactoid type of reaction to IV iron we will hold off for now Low BMI 17 evidence of protein calorie malnutrition -Workup as above Patient is DNR/DNI, confirmed with patient multiple times she does not want to have aggressive intervention SCDs for DVT prophylaxis, Lovenox relatively contraindicated given acute anemia Plan for today continue prep for abdominal colonoscopy, will require a 2-day prep, monitor hemoglobin, monitor clinical status, 07/09/2024. Hemoglobin stable at 11.8. Patient still has NGT in place connected to suction. Awaiting reduction in the NGT output to be able to proceed with bowel prep and undergo EGD and colonoscopy due to high suspicion for stricture, possible colon cancer. 07/10/2024. Hemoglobin stable at 11.8. Patient has NGT in place. No further vomiting episodes. Getting bowel prep via NGT today in anticipation of undergoing endoscopic evaluation tomorrow. Hemodynamically stable afebrile. 07/11/2024 : Hemoglobin stable. NGT in place, getting bowel prep, tolerating this well today. anticipate EGD and colonoscopy tomorrow Attestations 2 Medical Necessity Statement*: EGD and colonoscopy tomorrow Coding Level of Care Code Acute Code for Chg Fwd Diagnoses Dyslipidemia E78.5 Anemia D64.9 Iron deficiency anemia D50.9 Microcytic anemia D50.9 Syncope R55
--- NOTE | 2024-07-11 19:46 | PC.NURSE ---
All Go-Lytly given and Mag Citrate through NG tube and bowel movements are clear.
[2024-07-12] VITALS (14 sets, daily range): BP systolic 109–162; BP diastolic 62–91; PULSE 70–89; RESP 15–18; TEMP 36.3–37.1; O2SAT 94–98
[2024-07-12] MEDS: dextrose 5%-lactated ringers 1,000 ML 150 ML IV ×2 (01:03→08:33)
[2024-07-12] MEDS: pantoprazole 40 mg SDV IVP ×2 (02:32→15:26)
[2024-07-12] MEDS: sucralfate 1 gm/10 mL Oral Liq UDC PO ×3 (02:32→20:40)
[2024-07-12] MEDS: morphine 4 mg/mL SDV 1 mL 2 MG IVP ×4 (02:32→20:40)
--- NOTE | 2024-07-12 08:42 | P.PN_ITS ---
Vitals/I&O/Wt Last Vital Signs Temp 98.8 F 07/12/24 07:47 Pulse 86 07/12/24 07:47 Resp 16 07/12/24 08:37 BP 131/73 07/12/24 07:47 Pulse Ox 96 07/12/24 07:47 O2 Del Method Room Air 07/12/24 07:47 07/11/24 07/12/24 07/12/24 22:59 06:59 14:59 Intake Total 2820 / 4840 0 / 4840 1000 / 1000 Output Total 2500 / 2550 Balance 320 / 2290 0 / 2290 1000 / 1000 Weight last 48 hrs Weight 98 lb 4.8 oz Weight 107 lb 6.4 oz Data 07/10/24 09:32 07/10/24 05:10 A&P Assessment and plan (1) Acute blood loss anemia: (2) Iron deficiency anemia: (3) Colon abnormality: Plan EGD and colonoscopy The risks and benefits of the procedure, including bleeding, infection, intestinal perforation requiring surgery, missed lesion were explained to the patient. The patient is understanding of the risks and wishes to proceed. Attestations 2 Medical Necessity Statement*: PER PRIMARY Coding Level of Care Code Acute Code for Chg Fwd Diagnoses Acute blood loss anemia D62 Iron deficiency anemia D50.9 Colon abnormality K63.9
--- NOTE | 2024-07-12 10:58 | ANES.PREANE2 ---
Pre-Anesthetic Assessment Height/Weight: Height 5 ft 5 in Weight 98 lb 4.8 oz Temp Pulse Resp BP Pulse Ox O2 Del Method 98.8 F 81 16 131/73 96 Room Air 07/12/24 07:47 07/12/24 09:39 07/12/24 09:39 07/12/24 07:47 07/12/24 09:39 07/12/24 09:39 Preop Diagnosis: GI bleed Operation Date: 07/12/24 11:00 Proposed Procedures p EGD(Not Applicable) - Calvin Caceres DO s Colonoscopy(Not Applicable) - Calvin Caceres DO Was Beta Obdulio taken within 24 hours: N/A Was Clonidine taken within 24 hours: N/A Social Tobacco and No alcohol Exam alert, oriented x 3, clear to auscultation bilaterally and regular rate & rhythm Airway Submandibular: within normal limits Cervical ROM: within normal limits Mallampati: Class III Comments: Comments: NG in place Anesthetic Plan ASA status: 3 Anesthesia: MAC Other: Patient initially admitted 07/07/2024 for dizziness/passing out. Anemic at admission. Patient has completed bowel prep, concern for small bowel obstruction initially Hypertension EKG showing sinus rhythm Echo showing EF 68% with no wall motion abnormalities Labs reviewed, hemoglobin 11.8, status post 2 units PRBCs Patient had an NG placed due to unable to tolerate bowel prep. NPO since 2 days ago Plan for MAC anesthetic with possible conversion to general Medications/Allergies Home Medications Medication Instructions Recorded Confirmed Last Taken Type nitroglycerin 0.4 mg sublingual 0.4 mg sublingual Q5M PRN Chest 07/16/23 07/07/24 Unknown History tablet (Nitrostat) Pain tiotropium 2.5 mcg-olodaterol 2.5 2 puff inhalation DAILY 05/16/24 07/07/24 Unknown History mcg/actuation mist for inhalation (Stiolto Respimat) umeclidinium 62.5 mcg-vilanterol 1 ea inhalation DAILY 05/16/24 07/07/24 Unknown History 25 mcg/actuation powdr for inhalation (Anoro Ellipta) tizanidine 2 mg tablet 2 mg PO Q6H PRN Spasms 14 days #30 05/18/24 07/07/24 07/07/24 Rx tabs pkwjlxe-vhuarekraqkmq-oxyzvyxv 250 2 tab PO Q6H PRN Pain 07/07/24 07/07/24 07/07/24 History mg-250 mg-65 mg tablet (Excedrin Extra Strength) polyethylene glycol 3350 17 gram 17 g PO BID PRN constipation 07/07/24 07/07/24 Unknown History oral powder packet (Miralax) Allergies Allergy/AdvReac Type Severity Reaction Status Date / Time diphenhydramine Allergy Unknown Verified 07/04/24 13:01 [From Benadryl] hydromorphone [From Dilaudid] Allergy ADR-Vomitin Verified 07/04/24 13:01 g ibuprofen [From Motrin] Allergy ALGY-Anaphy Verified 07/04/24 13:01 laxis Penicillins Allergy ALGY-Anaphy Verified 07/04/24 13:01 laxis tramadol Allergy Unknown Verified 07/04/24 13:01 Current Medications Generic Name Dose Route Start Last Admin Trade Name Freq PRN Reason Stop Dose Admin Dextrose/Lactated Ringer's 1,000 mls @ 150 mls/hr 07/09/24 09:15 07/12/24 08:33 Dextrose 5%-Lactated Ringers IV 150 mls/hr .Q6H40M ELISABETH Administration Metoclopramide HCl 10 mg 07/08/24 09:02 07/10/24 10:54 Metoclopramide 5 Mg/Ml Sdv 2 Ml IVP 10 mg Q6H PRN Administration NAUSEA AND VOMITING Morphine Sulfate 2 mg 07/07/24 15:10 07/12/24 08:37 Morphine 4 Mg/Ml Sdv 1 Ml IVP 2 mg Q4H PRN Administration SEVERE PAIN Ondansetron HCl 4 mg 07/08/24 09:06 07/11/24 00:03 Ondansetron 2 Mg/Ml Sdv 2 Ml IVP 4 mg Q6H PRN Administration vomiting, or N/V if npo Pantoprazole Sodium 40 mg 07/07/24 15:30 07/12/24 02:32 Pantoprazole 40 Mg Sdv IVP 40 mg Q12H ELISABETH Administration Sucralfate 1 gm 07/07/24 15:10 07/12/24 08:35 Sucralfate 1 Gm/10 Ml Oral Liq Udc PO Not Given Q6H ELISABETH PFSH Anesthesia Medical History Small bowel obstruction Microcytic anemia Leukocytosis Dyslipidemia Nondisplaced fracture of fifth right metatarsal bone Fracture of fourth metatarsal bone of right foot SOB (shortness of breath) Hx of COPD, 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,quit in 2000 Metatarsal bone fracture Dysphagia Weight loss Peripheral neuropathy Chest pain Abnormal EKG Atherosclerotic heart disease of [place] coronary artery with other forms of angina pectoris GERD (gastroesophageal reflux disease) Benign essential hypertension with target blood pressure below 140/90 Bradycardia AV block, 2nd degree Recurrent vomiting HTN (hypertension) Nausea and vomiting Elevated blood pressure reading Unstable angina Chest pain Palpitations Chest pain Emphysema of lung Quit in 2019 Chronic migraine without aura, intractable, with status migrainosus Surgical History Status post colon resection H/O colonoscopy History of surgery ULCERS AND PART OF STOMACH REMOVED History of colon resection History of hysterectomy History of appendectomy History of cholecystectomy Family History Mother CAD (coronary artery disease), Onset Age: 50 Cancer Lung disease Stroke Denies family history of Diabetes Clotting disorder Dementia Chronic kidney disease (CKD) Suicide Anesthesia complication Bleeding disorder Social History Smoking and tobacco/nicotine status: unknown if used tobacco/nicotine Alcohol intake: former Substance/Drug Use: never Data Anesthesia 07/10/24 09:32 07/10/24 05:10 Cardiac Studies: Echocardiogram 07/07/24 Sestamibi Stress Test (Cardiology) 02/18/22 Cardiac Event Monitor 04/01/22
[2024-07-12] MEDS: sodium chloride 0.9% 500 ML 15 ML IV (11:37)
[2024-07-12] MEDS: EPINEPHrine 1 mg/mL INJ XX (12:07)
--- NOTE | 2024-07-12 12:26 | ANE.PACU2 ---
Inpatient post-anesthesia follow up: Airway intact: Yes Vital signs: Temperature 98.0 F Pulse Rate [Orthos tatic 89 Standing] Pulse Rate [Orthos tatic 88 Sitting] Pulse Rate [Orthos tatic Lying] 79 Pulse Rate 88 Respiratory Rate 17 Blood Pressure [Or thostatic 153/91 Standing] Blood Pressure [Or thostatic 162/91 Sitting] Blood Pressure [Or thostatic 126/62 Lying] Blood Pressure 109/68 Pulse Oximetry 98 Oxygen Delivery Me thod Room Air Oxygen Flow Rate Fraction of Inspir ed Oxygen Hydration adequate: Yes Nausea and vomiting: No Pain level: 1 Mental status: Baseline
--- NOTE | 2024-07-12 16:18 | P.PN_ITS ---
Subjective 2 Subjective: Patient underwent EGD and colonoscopy today. The esophagus shows diffuse moderate gastritis. There was contact bleeding. General loop was grossly normal proximally. Cold biopsy was taken from the fundus. Colonoscopy normal. Medications: Reviewed: Yes Vitals/I&O/Wt Last Vital Signs Temp 98.4 F 07/12/24 15:32 Pulse 87 07/12/24 15:32 Resp 16 07/12/24 16:00 BP 113/74 07/12/24 15:32 Pulse Ox 94 07/12/24 15:32 O2 Del Method Room Air 07/12/24 15:32 07/12/24 07/12/24 07/12/24 06:59 14:59 22:59 Intake Total 0 / 4840 2051.5 / 2051.5 Balance 0 / 2290 2051.5 / 2051. Weight last 48 hrs Weight 44.588 kg Weight 48.716 kg Physical Exam 2 Narrative: General: No acute distress HEENT: PERRLA, pupils bilaterally equal and reactive, pallors not present Chest: Normal vesicular breath sounds, no added sounds, equal good air entry bilaterally CVS: S1-S2 regular, no murmurs, no tachycardia, no gallops, no rubs Abdomen: Soft, nontender, no organomegaly, bowel sounds present Neuro: No focal deficits, no facial deformity Data 07/10/24 09:32 07/10/24 05:10 A&P Assessment and plan (1) Dyslipidemia: (2) Anemia: (3) Iron deficiency anemia: (4) Microcytic anemia: (5) Syncope: Plan Syncopal episode -Likely orthostatic hypotension, with a combination of low hemoglobin -But could be cardiovascular etiology, cath in 2021 showed mild diffuse coronary artery disease -History of secondary AV block, telemetry monitoring -Orthostatic vitals improving after blood transfusion -Cardiac echo CONCLUSIONS Normal left ventricular size and systolic function, EF 68%.no regional wall motion abnormalities. . Normal cardiac chamber sizes. No intracardiac masses. Estimated pulmonary artery peak systolic pressure within normal limits No pericardial effusion. No significant valvular lesions. -Carotid artery ultrasound CONCLUSIONS Right proximal to mid ICA stenosis 50-69%. Moderate atheromatous plaque right carotid bulb/ICA. Left ICA stenosis <50%. Moderate atheromatous plaque left carotid bulb/ICA. Normal antegrade Doppler flow noted in the right vertebral artery. Normal antegrade Doppler flow noted in the left vertebral artery head CT - CT/CT head wo con* [id number] IMPRESSION: 1. No evidence of intracranial hemorrhage or mass effect. 2. No acute intracranial findings. -Monitor hemoglobin -Troponin series unremarkable -UA within normal limits -sHe is receiving blood we will avoid IV fluids due to risk of fluid overload Acute on chronic anemia with syncopal episode, hemoglobin 10.9 -Status post 2 units PRBC -Monitor hemoglobin closely -General Surgery consulted for EGD and colonoscopy -Protonix, Carafate -CT scan findings as below, general surgery consulted for colonoscopy, will require a 2-day prep CT/CT abdomen pelvis w con* [id number] IMPRESSION: 1. Dense constipation involving the cecum and RIGHT colon and transverse colon extending to the splenic flexure. Descending colon and sigmoid colon are decompressed. Suggestion of a possible stricture or transition point just distal to the splenic flexure. Recommend further evaluation with colonoscopy to evaluate for stricture or obstructing lesion. 2. Fecalization of the terminal ileum. Small bowel is otherwise decompressed. 3. Prior postoperative changes described above. 4. No other acute findings. -Patient reports a anaphylactoid type of reaction to IV iron we will hold off for now Low BMI 17 evidence of protein calorie malnutrition -Workup as above Patient is DNR/DNI, confirmed with patient multiple times she does not want to have aggressive intervention SCDs for DVT prophylaxis, Lovenox relatively contraindicated given acute anemia Plan for today continue prep for abdominal colonoscopy, will require a 2-day prep, monitor hemoglobin, monitor clinical status, 07/09/2024. Hemoglobin stable at 11.8. Patient still has NGT in place connected to suction. Awaiting reduction in the NGT output to be able to proceed with bowel prep and undergo EGD and colonoscopy due to high suspicion for stricture, possible colon cancer. 07/10/2024. Hemoglobin stable at 11.8. Patient has NGT in place. No further vomiting episodes. Getting bowel prep via NGT today in anticipation of undergoing endoscopic evaluation tomorrow. Hemodynamically stable afebrile. 07/12/2024 : Hemoglobin of 11.8. Patient underwent EGD and colonoscopy today. Contact bleeding gastritis noted. Colonoscopy grossly normal. Patient complaining of interim development of cough today. Will check chest x-ray, potentially may have aspirated earlier when she was vomiting. Anticipate discharge in the upcoming 24 hours if remains stable Attestations 2 Medical Necessity Statement*: Anticipate discharge in the upcoming 24 hours Coding Level of Care Code Acute Code for Chg Fwd Diagnoses Dyslipidemia E78.5 Anemia D64.9 Iron deficiency anemia D50.9 Microcytic anemia D50.9 Syncope R55
--- NOTE | 2024-07-12 16:27 | XR_ITS ---
WS: [id number] Exam: XR chest 1V portable [id number] Date/Time of Exam: 07/12/2024 4:28 PM Reason For Exam: pneumonia Comparison 07/10/2024. Lungs are clear and fully expanded. Normal cardiomediastinal silhouette. No pleural effusions. Bony s tructures are intact. Surgical clips in the upper LEFT abdomen. XR/XR chest 1V portable [id number] IMPRESSION: 1. No acute cardiopulmonary finding.
[2024-07-13] VITALS (8 sets, daily range): BP systolic 109; BP diastolic 65–69; PULSE 79–88; RESP 16–18; TEMP 36.7–36.9; O2SAT 94–98
[2024-07-13] MEDS: morphine 4 mg/mL SDV 1 mL 2 MG IVP ×2 (00:47→11:24)
[2024-07-13] MEDS: pantoprazole 40 mg SDV IVP (02:30)
[2024-07-13] MEDS: sucralfate 1 gm/10 mL Oral Liq UDC PO ×2 (02:30→07:59)
[2024-07-13 06:03] LABS: Hematocrit 35.2 % (36-47)
[2024-07-13] MEDS: ipratropium-albuterol 3 mL Neb INHALATION (11:32)
--- NOTE | 2024-07-13 12:31 | PC.NURSE ---
D/C pending medicaid ride
--- NOTE | 2024-07-13 12:43 | PC.NURSE ---
Pt requested her medication be sent to the pharmacy here rather than [facility]. This nurse called our main campus pharmacy and spoke with Aileen to give a verbal order for protonix and carafate. They will call [facility] to get this prescription transferred over.
--- NOTE | 2024-07-13 14:41 | P.DS_ITS ---
Discharge Providers Date of Admission: 07/07/24 14:47 Date of Discharge: July 13, 2024 Attending Provider at Admission: Stefan Garg MD Attending Provider at Discharge: Berta Montana MD Primary Care Provider: Braden Owen NP Diagnoses at Discharge Discharge Diagnosis (1) Dyslipidemia: Status: Acute (2) Anemia: Status: Acute (3) Iron deficiency anemia: Status: Acute (4) Microcytic anemia: Status: Acute (5) Syncope: Status: Acute Reason for Visit Reason for Visit: SYNCOPE Hospital Course Hospital Course Radha Maguire is a 59 year old female with a past medical history of iron deficiency anemia, history of bowel obstruction, microcytic anemia COPD, who presents to [facility] due to lightheadedness, dizziness, fatigue, malaise, and syncopal episode. she had 1 episode of black tarry bowel movement with intermittent blood in her stools for the last few weeks. On abdominal CT she was found to have Dense constipation involving the cecum and RIGHT colon and transverse colon extending to the splenic flexure.possible stricture or transition point just distal to the splenic flexure. She underwent EGD and colonoscopy which showed gastritis and EGD with contact bleeding. This was likely the source of her melanotic stools. Colonoscopy was grossly normal. She had acute on chronic anemia, she received 2 unit packed red blood cells upon admission. H&H was monitored closely. It has remained stable during the course of this admission. No further bleeding was encountered. Chronic anemia was most likely related to slow GI loss just poor nutritional intake. Physical Exam Narrative: General: No acute distress, AO x3 HEENT: PERRLA, pupils bilaterally equal and reactive, pallors not present Chest: Normal vesicular breath sounds, no added sounds, equal good air entry bilaterally CVS: S1-S2 regular, no murmurs, no tachycardia, no gallops, no rubs Abdomen: Soft, nontender, no organomegaly, bowel sounds present Neuro: No focal deficits, no facial deformity, AO x3, power 5/5 in all limbs Discharge Data Studies Completed and Pending Completed Studies During Hospitalization Category Date Time Status CT abdomen pelvis w con* [id number] Stat Cat Scan 07/07/24 10:[address] head wo con* [id number] Stat Cat Scan 07/07/24 13:46 Completed CXRP [XR chest 1V portable [id number]] Routine Exams 07/12/24 16:27 Completed CXRP [XR chest 1V portable [id number]] Stat Exams 07/10/24 17:16 Completed XR chest 1V portable [id number] Stat Exams 07/08/24 19:29 Completed CV carotid duplex BI* [id number] Stat Ultrasound 07/07/24 13:46 Completed CV. echo complete* [id number] Stat Ultrasound 07/07/24 13:46 Completed Pending at discharge Category Date Time Status Pathology: Surgical [PTH] Routine Pth 07/12/24 12:13 Received Radiology Impressions Abdomen/Pelvis CT 07/07/24 10:38 IMPRESSION: 1. Dense constipation involving the cecum and RIGHT colon and transverse colon extending to the splenic flexure. Descending colon and sigmoid colon are decompressed. Suggestion of a possible stricture or transition point just distal to the splenic flexure. Recommend further evaluation with colonoscopy to evaluate for stricture or obstructing lesion. 2. Fecalization of the terminal ileum. Small bowel is otherwise decompressed. 3. Prior postoperative changes described above. 4. No other acute findings. Head CT 07/07/24 13:46 IMPRESSION: 1. No evidence of intracranial hemorrhage or mass effect. 2. No acute intracranial findings. Chest X-Ray 07/12/24 16:27 IMPRESSION: 1. No acute cardiopulmonary finding. Laboratory Results WBC 7.57 10^3/uL (3.29-11.43) 07/10/24 09:32 Corrected WBC Cancelled 07/10/24 06:59 RBC 5.26 10^6/uL (3.85-5.65) 07/10/24 09:32 Hgb 10.30 g/dL (11.27-16.99) L 07/13/24 05:04 Hct 35.2 % (36-47) L 07/13/24 05:04 MCV 76.6 fl (85-98) L 07/10/24 09:32 MCH 22.4 pg (27-33) L 07/10/24 09:32 MCHC 29.3 g/dL (30-55) L 07/10/24 09:32 RDW 20.8 % (12.1-15.1) H 07/10/24 09:32 Plt Count 250 10^3/cmm (157-399) 07/10/24 09:32 MPV 10.0 fL (7.4-10.4) 07/10/24 09:32 Gran % Cancelled 07/10/24 06:59 Neut % (Auto) 66.5 % 07/10/24 09:32 Lymph % (Auto) 19.3 % 07/10/24 09:32 Hanson % (Auto) 11.4 % 07/10/24 09:32 Eos % (Auto) 2.4 % 07/10/24 09:32 Baso % (Auto) 0.3 % 07/10/24 09:32 Neut # (Auto) 5.04 10^3/uL (1.8-7.7) 07/10/24 09:32 Lymph # (Auto) 1.5 10^3/uL (0.8-4.8) 07/10/24 09:32 Hanson # (Auto) 0.9 10^3/uL (0.2-0.9) 07/10/24 09:32 Eos # (Auto) 0.2 10^3/uL (0.0-0.8) 07/10/24 09:32 Baso # (Auto) 0.0 10^3/uL (0.0-0.1) 07/10/24 09:32 Absolute Gran (auto) Cancelled 07/10/24 06:59 Nucleated RBC % (auto) 0 % 07/10/24 09:32 Nucleated RBCs # 0.0 /100WBC 07/10/24 09:32 PT 12.30 SECONDS (12.1-14.9) 07/07/24 21:11 INR 0.89 (0.8-1.2) 07/07/24 21:11 APTT 25.6 SECONDS (23.9-36.7) 07/07/24 21:11 Sodium 140 mmol/L (136-145) 07/10/24 05:10 Potassium 3.7 mmol/L (3.5-5.1) 07/10/24 05:10 Chloride 103 mmol/L (98-107) 07/10/24 05:10 Carbon Dioxide 27 mmol/L (22-29) 07/10/24 05:10 Anion Gap 13.7 (5-19) 07/10/24 05:10 BUN 6 mg/dL (6-20) 07/10/24 05:10 Creatinine 0.5 mg/dL (0.5-0.9) 07/10/24 05:10 GFR Calculation 126.3 mL/min (90-130) 07/10/24 05:10 Glucose 125 mg/dL (65-115) H 07/10/24 05:10 Estimat Average Glucose 97 07/07/24 10:41 Hemoglobin A1c 5.0 % (4.0-6.0) 07/07/24 10:41 Calculated Osmolality 289 mOsm/kg (285-295) 07/10/24 05:10 Lactic Acid 0.8 mmol/L (0.5-2.2) 07/08/24 00:00 Calcium 9.3 mg/dL (8.5-10.5) 07/10/24 05:10 Phosphorus 2.6 mg/dL (2.5-4.5) 07/10/24 05:10 Magnesium 1.8 mg/dL (1.7-2.3) 07/10/24 05:10 Total Bilirubin 0.5 mg/dL (0.15-1.2) 07/10/24 05:10 AST 17 U/L (0-32) 07/10/24 05:10 ALT 9 U/L (0-33) 07/10/24 05:10 Alkaline Phosphatase 104 U/L (35-105) 07/10/24 05:10 Troponin T Baseline < 6 ng/L (0-10) 07/07/24 21:11 Troponin T 120 Minute 6.00 ng/L (0-10) 07/08/24 00:00 Delta Troponin T 0.86632 ABS# (0-10) 07/08/24 00:00 Troponin T Hi Sens 6Hr 6.00 ng/L (0-10) 07/08/24 03:12 Troponin T Hi Sens 6Hr Delta 0.81576 ng/L (0-12) 07/08/24 03:12 NT-Pro-B Natriuret Pep 53 pg/mL (0-125) 07/07/24 10:41 Total Protein 6.3 g/dL (6.6-8.7) L 07/10/24 05:10 Albumin 3.9 g/dL (3.5-5.2) 07/10/24 05:10 Globulin 2.4 g/dL (1.3-4.6) 07/10/24 05:10 Lipase 19 U/L (13-60) 07/07/24 10:41 Procalcitonin 0.04 ng/mL (0-0.5) 07/07/24 10:41 TSH 3.78 uIU/mL (0.27-4.20) 07/07/24 10:41 Urine Color Yellow (Yellow) 07/07/24 17:11 Urine Appearance Clear (CLEAR) 07/07/24 17:11 Urine pH 6.0 (5-7) 07/07/24 17:11 Ur Specific [place] 1.072 (1.005-1.030) H 07/07/24 17:11 Urine Protein Negative (Negative) 07/07/24 17:11 Urine Glucose (UA) Negative (Normal) 07/07/24 17:11 Urine Ketones Negative (Negative) 07/07/24 17:11 Urine Blood Negative (Negative) 07/07/24 17:11 Urine Nitrate Negative (Negative) 07/07/24 17:11 Urine Bilirubin Negative (Negative) 07/07/24 17:11 Urine Urobilinogen 1.0 mg/dL (Negative) 07/07/24 17:11 Ur Leukocyte Esterase Negative (Negative) 07/07/24 17:11 Urine RBC 0-2 /hpf (0-2) 07/07/24 17:11 Urine WBC 0-5 /hpf (0-5) 07/07/24 17:11 Ur Squamous Epith Cells 0-5 /hpf (0-5) 07/07/24 17:11 Amorphous Sediment Not Reportable 07/07/24 17:11 Urine Bacteria None seen /hpf (NONE) 07/07/24 17:11 Hyaline Casts 0-4 /lpf H 07/07/24 17:11 Blood Type A Positive 07/07/24 10:41 Rho(D) Type Rh positive 07/07/24 10:41 Antibody Screen Negative 07/07/24 10:41 Crossmatch See Detail 07/07/24 10:41 Vitals Last Vital Signs Temp 98.0 F 07/13/24 11:41 Pulse 88 07/13/24 13:49 Resp 17 07/13/24 11:41 BP 109/68 07/13/24 13:49 Pulse Ox 98 07/13/24 13:49 O2 Del Method Room Air 07/13/24 11:41 Discharge Plan Discharge Patient Disposition: Home Condition: Stable Prescriptions: New sucralfate 100 mg/mL Suspension 1 g PO Q6H 30 Days Qty: 1200 0RF pantoprazole [Protonix] 40 mg tablet,delayed release (DR/EC) 40 mg PO BID 28 Days Qty: 56 0RF Continued Anoro Ellipta 62.5-25 mcg/actuation blister with device 1 ea INHALATION DAILY Stiolto Respimat 2.5-2.5 mcg/actuation mist 2 puff INHALATION DAILY tizanidine 2 mg tablet 2 mg PO Q6H PRN (Reason: Spasms) 14 Days Qty: 30 1RF nitroglycerin [Nitrostat] 0.4 mg Tablet, Sublingual 0.4 mg SUBLINGUAL Q5M PRN (Reason: Chest Pain) Rx Instructions: do not exceed 3 doses per episode Excedrin Extra Strength 250-250-65 mg Tablet 2 tab PO Q6H PRN (Reason: Pain) polyethylene glycol 3350 [Miralax] 17 gram powder in packet 17 g PO BID PRN (Reason: constipation ) Discharge Orders: Discharge Order (Routine); Ordered 07/13/24 Ordered By: Berta Montana Referrals: Calvin Caceres DO [Physician] - 1 week (We have notified your physician's clinic of the need for a follow-up appointment to be scheduled. If you have not heard from them within the next 2 business days, please call them directly. ) Delonte Golden MD [Referring] - 07/20/24 1:30 pm Discharge Diet: As Directed and Low Fat Discharge Activity: Resume usual activity Patient Instructions: Anemia, Sucralfate (By mouth) (Carafate), Pantoprazole (By mouth) (Protonix), Syncope, GI Post Discharge Instructions w/ Anesthesia, Opioid Safety Activity Restrictions/Additional Instructions: Henry diet Discharge Attestations Time Spent in Discharge Care*: greater than 30 min Quality Metrics Clinical Quality Measures [ No reported AMI, CVA or VTE this stay] Coding Level of Care Code Acute Code for Chg Fwd Diagnoses Dyslipidemia E78.5 Anemia D64.9 Iron deficiency anemia D50.9 Microcytic anemia D50.9 Syncope R55
== END 2024-07-13 13:50 | disposition home or self-care (01) | DRG 811 ==
LOC: ER 13:01 → MEDSURG 07-08 06:26
PROVIDERS: Surgery; Admitting Provider Family Medicine; Emergency Provider Emergency Medicine; PCP Nurse Practitioner Family; Visit Provider Student in an Organized Health Care Education/Training Program
PROC: 0DJ08ZZ Inspection of Upper Intestinal Tract, Via Natural or Artificial Opening Endoscopic (ICD-10-PCS; CPT 43235; principal; 2024-07-12 11:00)
PROC: 0DJD8ZZ Inspection of Lower Intestinal Tract, Via Natural or Artificial Opening Endoscopic (ICD-10-PCS; CPT 45378; 2024-07-12 11:00)
DX: D62 Acute posthemorrhagic anemia (principal); K29.71 Gastritis, unspecified, with bleeding; E46 Unspecified protein-calorie malnutrition; Z68.1 Body mass index [BMI] 19.9 or less, adult; E78.5 Hyperlipidemia, unspecified; I95.1 Orthostatic hypotension; J43.9 Emphysema, unspecified; I25.10 Atherosclerotic heart disease of native coronary artery without angina pectoris; K59.00 Constipation, unspecified; Z66 Do not resuscitate; R05.9 Cough, unspecified; Z79.82 Long term (current) use of aspirin
CPT/HCPCS: 36415; 36430; 43239; 45378; 70450; 71045; 74177; 80053; 81001; 83036; 83605; 83690; 83735; 83880; 84100; 84145; 84443; 84484; 85014; 85018; 85025; 85610; 85730; 86850; 86900; 86920; 88305; 88342; 93005; 93306; 93880; 94640; 94664; 96374; 96375; 99285; 99291; 99292; J0171; J2270; J2405; J2470; J2704; J2765; J7040; J7121; P9040

== ENCOUNTER → 2024-07-25 12:38 | Outpatient (BNVA) | payer MEDICAID, SELFPAY | PROVIDERS: PCP Nurse Practitioner Family; Visit Provider Surgery | DX: Z09 Encounter for follow-up examination after completed treatment for conditions other than malignant neoplasm (principal); R03.0 Elevated blood-pressure reading, without diagnosis of hypertension; K29.70 Gastritis, unspecified, without bleeding; D64.9 Anemia, unspecified | CPT/HCPCS: 99204 ==

== ENCOUNTER 2025-01-13 09:32 | Outpatient (CLI) | payer MEDICAID, SELFPAY ==
--- NOTE | 2025-01-13 09:42 | MR_ITS ---
WS: [id number] MRI HEAD WITHOUT CONTRAST TECHNIQUE: Sagittal T1, T2 axial, T2 axial FLAIR, axial and coronal T1 images, axial susceptibility weighted imaging, axial diffusion weighted images, and coronal T2 images were obtained. CLINICAL INFORMATION: HEADACHE/MEMORY LOSS COMPARISON: CT 2023. MRI 2019 FINDINGS: No evidence of restricted diffusion to suggest acute ischemia. Moderate small vessel changes slightly progressed compared to 2020. Mild to moderate parenchymal volume loss. Benign grey cisterna magna. Normal vascular flow voids at the skull base. No extra-axial fluid collections. Paranasal sinuses and mastoid air cells are well aerated. No hemosiderin on the susceptibly weighted images. Normal optic chiasm and pituitary infundibulum. Temporal lobes and hippocampal formations are normal in appearance. MR/MR head wo con* [id number] IMPRESSION: 1. No evidence of restricted diffusion to suggest acute ischemia. 2. Moderate small vessel changes with mild to moderate parenchymal volume loss slightly progressed compared to 2020. 3. No hemosiderin on the susceptibility weighted images. 4. Temporal lobes and hippocampal formations are normal in appearance. 5. No other acute findings.
== END 2025-01-13 09:33 | disposition home or self-care (01) ==
LOC: RAD 09:35
PROVIDERS: PCP Nurse Practitioner Family; Visit Provider Family Medicine
DX: R51.9 Headache, unspecified (principal); R41.3 Other amnesia
CPT/HCPCS: 70551

== ENCOUNTER 2025-02-08 22:43 | Emergency (ER) | payer MEDICAID, SELFPAY ==
[2025-02-08 22:48] VITALS: BP 119/86; PULSE 97; RESP 20; TEMP 36.8; O2SAT 99; BMI 17.1
--- OUTSIDE RECORDS SUMMARY | 2025-02-08 22:54 | XMS_ITS | Encounter Summary ---
Author Organization [facility] Address [address] [place] [address] Care Team Providers Care Cylinder Handler Name Role Phone Non-Staff, Physician Primary Care Provider Unava ilable Encounter Details Date Type Department Care Team (Late st Contact Info) Description 07/17/2007 Emergency [facility] Emergency Department [address] [place] [address] Ed, Physician NO ADDRESS ON FILE Renetta Abreu MD [address] [place] [address] Social History Tobacco Use Types Packs/Day Years Used Date Smoking Tobacco: Never Assessed Comments Unknown Sex and Gender Information Value Date Recorded Sex Assigned at Not on file Legal Sex Female 6:52 AM SOUND ENGINEER AUDIO CONTROL Gender Identity Not on file Sexual Orientation Not on file documented as of this encounter Plan of Treatment Not on file documented as of this encounter Procedures Procedure Name Priority Date/Time Associated Diagnosis Comments URINALYSIS MICROSCOPY ONLY Routine 07/17/2007 5:15 PM SOUND ENGINEER AUDIO CONTROL CBC WITH DIFFERENTIAL Routine 07/17/2007 5:15 PM SOUND ENGINEER AUDIO CONTROL URINALYSIS W/REFLEX MICROSCOPIC Routine 07/17/2007 5:15 PM SOUND ENGINEER AUDIO CONTROL COMPREHENSIVE METABOLIC PANEL Routine 07/17/2007 5:15 PM SOUND ENGINEER AUDIO CONTROL HCG QUANTITATIVE, BLOOD Routine 07/17/2007 5:00 PM SOUND ENGINEER AUDIO CONTROL documented in this encounter Results * (ABNORMAL) URINALYSIS MICROSCOPY ONLY (07/17/2007 5:15 PM SOUND ENGINEER AUDIO CONTROL) WBC URINE 3-5(A) 0 - 2 INTERFACE SYSTEM RBC UA 0-2 0 - 2 INTERFACE SYSTEM HYALINE CAST None Seen 0 - 2 INTERFA CE SYSTEM BACTERIA UA Many(A) None Seen INTERFAC E SYSTEM 07/17/2007 5:15 PM SOUND ENGINEER AUDIO CONTROL Renetta Abreu MD URINE ORDERABLES Edited Performing Organization Address [facility] Phone Number INTERFACE SYSTEM Refer to clinic/hospital department * (ABNORMAL) URINALYSIS (07/17/2007 5:15 PM SOUND ENGINEER AUDIO CONTROL) COLOR UA Yellow Straw INTERFACE SYSTEM CLARITY UA Clear Clear INTERFACE SYSTEM LEUKOCYTE ESTERASE UA NEGATIVE NEGATIVE INTERFACE SYSTEM NITRITE UA POSITIVE(A) NEGATIVE INTERFA CE SYSTEM PH UA 6.5 5.0 - 9.0 INTERFACE SYSTEM PROTEIN UA NEGATIVE NEGATIVE INTERFACE SYSTEM GLUCOSE UA NEGATIVE NEGATIVE INTERFACE SYSTEM KETONES UA NEGATIVE NEGATIVE INTERFACE SYSTEM UROBILINOGEN UA 0.2 0.2 INTE RFACE SYSTEM BILIRUBIN UA NEGATIVE NEGATIVE INTERFA CE SYSTEM BLOOD UA NEGATIVE NEGATIVE INTERFACE SYSTEM SPECIFIC GRAVITY UA 1.025 <=1.005 INTERFACE SYSTEM MICRO EXAM Yes(A) No INTERFACE SYSTEM 07/17/2007 5:15 PM SOUND ENGINEER AUDIO CONTROL Result [facility] Renetta Abreu MD URINE ORDERABLES Edited Performing Organization Address [facility] Phone Number INTERFACE SYSTEM Refer to clinic/hospital department * (ABNORMAL) COMPREHENSIVE METABOLIC PANEL (07/17/2007 5:15 PM SOUND ENGINEER AUDIO CONTROL) GLOBULIN (CALC) 2.6 2.4 - 3.9 g/dL INTERFACE SYSTEM ALBUMIN/GLOBULIN RATIO 1.4 1.0 - 2.3 INTERFACE SYSTEM GLUCOSE 83 70 - 110 mg/dL INTERFACE SYSTEM BUN 9 7 - 17 mg/dL INTERFACE SYSTEM CREATININE 0.7 0.7 - 1.2 mg/dL INTERFACE SYSTEM SODIUM 140 136 - 145 mEq/L INTERFACE SYSTEM POTASSIUM 4.0 3.5 - 5.0 mEq/L INTERFACE SYSTEM Comment:Specimen slightly he molyzed CHLORIDE 105 95 - 110 mEq/L INTERFACE SYSTEM CO2 26 22 - 32 mmol/l INTERFACE SYSTEM CALCIUM 8.6 8.4 - 10.5 mg/dL INTERFACE SYSTEM TOTAL PROTEIN 6.3 6.3 - 8.2 g/dL INTERFACE SYSTEM ALBUMIN 3.7 3.5 - 5.0 g/dL INTERFACE SYSTEM ALKALINE PHOSPHATASE 107(H) 25 - 100 U/L INTERFACE SYSTEM AST 32 8 - 33 U/L INTERFACE SYSTEM ALT 22 4 - 36 IU/L INTERFACE SYSTEM BILIRUBIN TOTAL 0.2(L) 0.3 - 1.2 mg/dL INTERFACE SYSTEM ANION GAP 13 9 - 20 mEq/L INTERFACE SYSTEM OSMOLALITY, CALCULATED 286 275 - 295 mOsm/Kg INTERFACE SYSTEM 07/17/2007 5:15 PM SOUND ENGINEER AUDIO CONTROL Renetta Abreu MD CHEMISTRY ORDERABLES Edited INTERFACE SYSTEM Refer to clinic/hospital department * (ABNORMAL) CBC WITH DIFFERENTIAL (07/17/2007 5:15 PM SOUND ENGINEER AUDIO CONTROL) WBC 6.1 4.5 - 11.0 K/ul INTERFACE SYSTEM RBC 4.79 4.20 - 5.40 Mil/ul INTERFACE SYSTEM HEMOGLOBIN 11.4(L) 12.0 - 16.0 g/dL INTERFACE SYSTEM HEMATOCRIT 38.4 36.0 - 46.0 % INTERFACE SYSTEM MCV 80.2(L) 84.0 - 103.0 Fl INTERFACE SYSTEM MCH 23.8(L) 27.0 - 34.0 pg INTERFACE SYSTEM MCHC 29.7(L) 30.0 - 35.0 g/dL INTERFACE SYSTEM RDW 22.0(H) 11.0 - 14.5 % INTERFACE SYSTEM PLATELETS 304 140 - 440 K/ul INTERFACE SYSTEM MPV 11.0 8.9 - 12.8 Fl INTERFACE SYSTEM NEUTROPHILS 44.9 42.2 - 75.2 % INTERFACE SYSTEM LYMPHOCYTES 35.6 24.0 - 44.0 % INTERFACE SYSTEM MONOCYTES 9.0 2.0 - 10.0 % INTERFA CE SYSTEM EOSINOPHILS 10.3(H) 0.0 - 7.0 % INTERF NATHALIA SYSTEM BASOPHILS 0.2 0.0 - 1.0 % INTERFAC E SYSTEM NEUTROPHIL ABSOLUTE 2.8 2.0 - 8.0 K/ul INTERFACE SYSTEM LYMPHOCYTE ABSOLUTE 2.2 1.2 - 4.0 K/ul INTERFACE SYSTEM MONOCYTE ABSOLUTE 0.6 0.1 - 0.6 K/ul INTERFACE SYSTEM EOSINOPHIL ABSOLUTE 0.6 0.0 - 0.7 K/ul INTERFACE SYSTEM BASOPHILS ABSOLUTE 0.0 0.0 - 0.2 K/ul INTERFACE SYSTEM HEM COMMENT Automated Diff Automated Diff INTERFACE SYSTEM 07/17/2007 5:15 PM SOUND ENGINEER AUDIO CONTROL Renetta Abreu MD HEMATOLOGY ORDERABLES Edited Performing Organization Address [facility] Phone Number INTERFACE SYSTEM Refer to clinic/hospital department * BETA HCG QUANTITATIVE, BLOOD (07/17/2007 5:00 PM SOUND ENGINEER AUDIO CONTROL) CHORIONIC GONADOTROPIN, TOTAL <2.0 0.0 - 10.0 mlU/ML INTERFACE SYSTEM 07/17/2007 5:00 PM SOUND ENGINEER AUDIO CONTROL us Renetta Abreu MD CHEMISTRY ORDERABLES Edited Performing Organization Address [facility] Phone Number INTERFACE SYSTEM Refer to clinic/hospital department documented in this encounter Visit Diagnoses Not on filedocumented in this encounter Care Teams Cylinder Handler Relationship Specialty Start Date End Date Non-Staff, Physician NO ADDRESS ON FILE PCP - General 07/02/07 documented as of this encounter
--- OUTSIDE RECORDS SUMMARY | 2025-02-08 22:54 | XMS_ITS | Encounter Summary ---
Author Organization [facility] Address [address] [place] [address] Care Team Providers Care Director Of Spa And Guest Experience Name Role Phone Non-Staff, Physician Primary Care Provider Unava ilable Encounter Details Date Type Department Care Team (Late st Contact Info) Description 08/01/2007 Outpatient Historical [facility] [address] 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
--- OUTSIDE RECORDS SUMMARY | 2025-02-08 22:54 | XMS_ITS | Encounter Summary ---
Author Organization [facility] Address [address] [place] [address] Care Team Providers Care Creative Perfumer Name Role Phone Non-Staff, Physician Primary Care Provider Unava ilable Encounter Details Date Type Department Care Team (Late st Contact Info) Description 07/06/2007 Outpatient Historical [facility] [address] 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
--- OUTSIDE RECORDS SUMMARY | 2025-02-08 22:54 | XMS_ITS | Encounter Summary ---
Author Organization [facility] Address [address] [place] [address] Care Team Providers Care Laboratory Scientist Name Role Phone Non-Staff, Physician Primary Care Provider Unava ilable Encounter Details Date Type Department Care Team (Late st Contact Info) Description 08/15/2007 Emergency [facility] Emergency Department [address] [place] [address] Ed, Physician NO ADDRESS ON FILE Prabhjot Bartlett PA [address] [place] [address] Lumbago; Personal History of Injury, Presenting Hazards to Health; Personal History of Allergy to Penicillin; Personal History of Allergy to Other Specified Medicinal Agents Social History Tobacco Use Types Packs/Day Years Used Date Smoking Tobacco: Never Assessed Comments Unknown Sex and Gender Information Value Date Recorded Sex Assigned at Not on file Legal 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
--- OUTSIDE RECORDS SUMMARY | 2025-02-08 22:54 | XMS_ITS | Encounter Summary ---
Author Organization [facility] Address [address] [place] [address] Care Team Providers Care Circle Cutting Saw Operator Name Role Phone Non-Staff, Physician Primary Care Provider Unava ilable Encounter Details Date Type Department Care Team (Late st Contact Info) Description 08/14/2007 Outpatient [facility] [address] 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 Gender Identity Not on file Sexual Orientation Not on file documented as of this encounter Plan of Treatment Not on file documented as of this encounter Visit Diagnoses Diagnosis Chronic airway obstruction, not elsewhere classified (CMS/HCC) Chronic airway obstruction, not elsewhere classified Encounter for long-term (current) use of other medications Personal history of allergy to penicillin Personal history of allergy to analgesic agent documented in this encounter Care Teams Circle Cutting Saw Operator Relationship Specialty Start Date End Date Non-Staff, Physician NO ADDRESS ON FILE PCP - General 07/02/07 documented as of this encounter
--- OUTSIDE RECORDS SUMMARY | 2025-02-08 22:54 | XMS_ITS | Encounter Summary ---
Author Organization [facility] Address [address] [place] [address] Care Team Providers Care Assisted Living Housekeeper Name Role Phone Non-Staff, Physician Primary Care Provider Unava ilable Encounter Details Date Type Department Care Team (Late st Contact Info) Description 07/17/2007 Outpatient Historical [facility] [address] [place] [address] AMBULANCE, 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
--- OUTSIDE RECORDS SUMMARY | 2025-02-08 22:54 | XMS_ITS | Encounter Summary ---
Author Organization [facility] Address [address] [place] [address] Care Team Providers Care Betting Clerks Name Role Phone Non-Staff, Physician Primary Care Provider Unava ilable Encounter Details Date Type Department Care Team (Late st Contact Info) Description 07/21/2007 Emergency [facility] Emergency Department [address] [place] [address] Ed, Physician NO ADDRESS ON FILE Anne Hardin FNP NO ADDRESS ON FILE Other Chronic Pain; Unspecified Neuralgia, Neuritis, and Radiculitis; Tobacco Use Disorder; Personal History of Allergy to Analgesic Agent; Personal History of Allergy to Penicillin Social History Tobacco Use Types Packs/Day Years Used Date Smoking Tobacco: Never Assessed Comments Unknown Sex and Gender Information Value Date Recorded Sex Assigned at Not on file Legal Sex Female 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
--- OUTSIDE RECORDS SUMMARY | 2025-02-08 22:54 | XMS_ITS | Encounter Summary ---
Author Organization [facility] Address [address] [place] [address] Care Team Providers Care Infrastructure Software Engineer Name Role Phone Non-Staff, Physician Primary Care Provider Unava ilable Encounter Details Date Type Department Care Team (Late st Contact Info) Description 08/14/2007 Emergency [facility] Emergency Department [address] [place] [address] Ed, Physician NO ADDRESS ON FILE Joe Perez MD NO ADDRESS ON FILE Lumbago; Chronic Airway Obstruction, not Elsewhere Classified (CMS/HCC); Encounter for Long-Term (Current) Use of Other Medications; Personal History of Allergy to Penicillin; Personal History of Allergy to Analgesic Agent Social History Tobacco Use Types Packs/Day Years Used Date Smoking Tobacco: Never Assessed Comments Unknown Sex and Gender Information Value Date Recorded Sex Assigned at Not on file Legal Sex Female 6:52 AM SALES OPERATIONS Gender Identity Not on file Sexual Orientation Not on file documented as of this encounter Plan of Treatment Not on file documented as of this encounter Procedures Procedure Name Priority Date/Time Associated Diagnosis Comments URINALYSIS W/REFLEX MICROSCOPIC Routine 08/14/2007 6:35 PM SALES OPERATIONS CBC WITH DIFFERENTIAL Routine 08/14/2007 4:16 PM SALES OPERATIONS documented in this encounter Results * URINALYSIS (08/14/2007 6:35 PM SALES OPERATIONS) COLOR UA Straw Straw INTERFACE SYSTEM CLARITY UA Clear Clear INTERFACE SYSTEM LEUKOCYTE ESTERASE UA NEGATIVE NEGATIVE INTERFACE SYSTEM NITRITE UA NEGATIVE NEGATIVE INTERFACE SYSTEM PH UA 7.0 5.0 - 9.0 INTERFACE SYSTEM PROTEIN UA NEGATIVE NEGATIVE INTERFACE SYSTEM GLUCOSE UA NEGATIVE NEGATIVE INTERFACE SYSTEM KETONES UA NEGATIVE NEGATIVE INTERFACE SYSTEM UROBILINOGEN UA 0.2 0.2 INTE RFACE SYSTEM BILIRUBIN UA NEGATIVE NEGATIVE INTERFA CE SYSTEM BLOOD UA NEGATIVE NEGATIVE INTERFACE SYSTEM SPECIFIC GRAVITY UA 1.020 <=1.005 INTERFACE SYSTEM MICRO EXAM No No INTERFACE SYSTEM 08/14/2007 6:35 PM SALES OPERATIONS Joe Perez MD URINE ORDERABLES Edited INTERFACE SYSTEM Refer to clinic/hospital department * (ABNORMAL) CBC WITH DIFFERENTIAL (08/14/2007 4:16 PM SALES OPERATIONS) WBC 5.4 4.5 - 11.0 K/ul INTERFACE SYSTEM RBC 4.29 4.20 - 5.40 Mil/ul INTERFACE SYSTEM HEMOGLOBIN 10.9(L) 12.0 - 16.0 g/dL INTERFACE SYSTEM HEMATOCRIT 35.3(L) 36.0 - 46.0 % INTERFACE SYSTEM MCV 82.3(L) 84.0 - 103.0 Fl INTERFACE SYSTEM MCH 25.4(L) 27.0 - 34.0 pg INTERFACE SYSTEM MCHC 30.9 30.0 - 35.0 g/dL INTERFACE SYSTEM RDW 19.7(H) 11.0 - 14.5 % INTERFACE SYSTEM PLATELETS 227 140 - 440 K/ul INTERFACE SYSTEM MPV 10.1 8.9 - 12.8 Fl INTERFACE SYSTEM NEUTROPHILS 59.3 42.2 - 75.2 % INTERFACE SYSTEM LYMPHOCYTES 27.4 24.0 - 44.0 % INTERFACE SYSTEM MONOCYTES 8.2 2.0 - 10.0 % INTERFA CE SYSTEM EOSINOPHILS 4.9 0.0 - 7.0 % INTERF NATHALIA SYSTEM BASOPHILS 0.2 0.0 - 1.0 % INTERFAC E SYSTEM NEUTROPHIL ABSOLUTE 3.2 2.0 - 8.0 K/ul INTERFACE SYSTEM LYMPHOCYTE ABSOLUTE 1.5 1.2 - 4.0 K/ul INTERFACE SYSTEM MONOCYTE ABSOLUTE 0.4 0.1 - 0.6 K/ul INTERFACE SYSTEM EOSINOPHIL ABSOLUTE 0.3 0.0 - 0.7 K/ul INTERFACE SYSTEM BASOPHILS ABSOLUTE 0.0 0.0 - 0.2 K/ul INTERFACE SYSTEM HEM COMMENT Automated Diff Automated Diff INTERFACE SYSTEM 08/14/2007 4:16 PM SALES OPERATIONS Joe Perez MD HEMATOLOGY ORDERABLES Edit ed INTERFACE SYSTEM Refer to clinic/hospital department documented in this encounter Visit Diagnoses Diagnosis Lumbago Chronic airway obstruction, not elsewhere classified (CMS/[facility]) Chronic airway obstruction, not elsewhere classified Encounter for long-term (current) use of other medications Personal history of allergy to penicillin Personal history of allergy to analgesic agent documented in this encounter Care Teams Infrastructure Software Engineer Relationship Specialty Start Date End Date Non-Staff, Physician NO ADDRESS ON FILE PCP - General 07/02/07 documented as of this encounter
--- OUTSIDE RECORDS SUMMARY | 2025-02-08 22:54 | XMS_ITS | Encounter Summary ---
Author Organization [facility] [facility] Address [address] [place] [address] Care Team Providers Care Senior Laboratory Technician Name Role Phone Non-Staff, Physician Primary Care Provider Unava ilable Encounter Details Date Type Department Care Team (Late st Contact Info) Description 08/02/2007 Outpatient [facility] [address] [place] [address] AMBULANCE, [facility] Chronic Obstructive Asthma, Unspecified (CMS/HCC); Tobacco Use Disorder; Encounter for Long-Term (Current) Use of Other Medications; Personal History of Allergy to Penicillin; Personal History of Allergy to Analgesic Agent Social History Tobacco Use Types Packs/Day Years Used Date Smoking Tobacco: Never Assessed Comments Unknown Sex and Gender Information Value Date Recorded Sex Assigned at Not on file Legal Sex Female 6:52 AM HAND ALTERATIONS TAILOR Gender Identity Not on file Sexual Orientation Not on file documented as of this encounter Plan of Treatment Not on file documented as of this encounter Visit Diagnoses Diagnosis Chronic obstructive asthma, unspecified (CMS/HCC) Chronic obstructive asthma, unspecified Tobacco use disorder Encounter for long-term (current) use of other medications Personal history of allergy to penicillin Personal history of allergy to analgesic agent documented in this encounter Care Teams Senior Laboratory Technician Relationship Specialty Start Date End Date Non-Staff, Physician NO ADDRESS ON FILE PCP - General 07/02/07 documented as of this encounter
--- OUTSIDE RECORDS SUMMARY | 2025-02-08 22:54 | XMS_ITS | Encounter Summary ---
Author Organization [facility] Address [address] [place] [address] Care Team Providers Care Coin Teller Name Role Phone Non-Staff, Physician Primary Care Provider Unava ilable Encounter Details Date Type Department Care Team (Late st Contact Info) Description 07/18/2007 Outpatient [facility] [address] [place] [address] AMBULANCE, [facility] Social History Tobacco Use Types Packs/Day Years Used Date Smoking Tobacco: Never Assessed Comments Unknown Sex and Gender Information Value Date Recorded Sex Assigned at Not on file Legal Sex Female 6:52 AM INSTRUMENT LENS GRINDER APPRENTICE Gender Identity Not on file Sexual Orientation Not on file documented as of this encounter Plan of Treatment Not on file documented as of this encounter Visit Diagnoses Not on filedocumented in this encounter Care Teams Coin Teller Relationship Specialty Start Date End Date Non-Staff, Physician NO ADDRESS ON FILE PCP - General 07/02/07 documented as of this encounter
--- OUTSIDE RECORDS SUMMARY | 2025-02-08 22:54 | XMS_ITS | Encounter Summary ---
Author Organization [facility] Address [address] [place] [address] Care Team Providers Care Account Leader Name Role Phone Non-Staff, Physician Primary Care Provider Unava ilable Encounter Details Date Type Department Care Team (Late st Contact Info) Description 08/07/2007 Outpatient Historical [facility] [address] [place] [address] AMBULANCE, [facility] Social History Tobacco Use Types Packs/Day Years Used Date Smoking Tobacco: Never Assessed Comments Unknown Sex and Gender Information Value Date Recorded Sex Assigned at Not on file Legal Sex Female 6:52 AM HEALTH INFORMATION ADMINISTRATOR Gender Identity Not on file Sexual Orientation Not on file documented as of this encounter Plan of Treatment Not on file documented as of this encounter Visit Diagnoses Not on filedocumented in this encounter Care Teams Account Leader Relationship Specialty Start Date End Date Non-Staff, Physician NO ADDRESS ON FILE PCP - General 07/02/07 documented as of this encounter
--- OUTSIDE RECORDS SUMMARY | 2025-02-08 22:54 | XMS_ITS | Encounter Summary ---
Author Organization [facility] Address [address] [place] [address] Care Team Providers Care Examination Supervisor Name Role Phone Non-Staff, Physician Primary Care Provider Unava ilable Encounter Details Date Type Department Care Team (Late st Contact Info) Description 07/18/2007 Emergency [facility] Emergency Department [address] [place] [address] Ed, Physician NO ADDRESS ON FILE Justen Lipscomb MD NO ADDRESS ON FILE Social History Tobacco Use Types Packs/Day Years Used Date Smoking Tobacco: Never Assessed Comments Unknown Sex and Gender Information Value Date Recorded Sex Assigned at Not on file Legal Sex Female 6:52 AM VEHICLE SERVICE AGENT Gender Identity Not on file Sexual Orientation Not on file documented as of this encounter Plan of Treatment Not on file documented as of this encounter Procedures Procedure Name Priority Date/Time Associated Diagnosis Comments CBC WITH DIFFERENTIAL Routine 07/18/2007 3:32 PM VEHICLE SERVICE AGENT COMPREHENSIVE METABOLIC PANEL Routine 07/18/2007 3:32 PM VEHICLE SERVICE AGENT documented in this encounter Results * (ABNORMAL) COMPREHENSIVE METABOLIC PANEL (07/18/2007 3:32 PM VEHICLE SERVICE AGENT) GLUCOSE 94 70 - 110 mg/dL INTERFACE SYSTEM BUN 7 7 - 17 mg/dL INTERFACE SYSTEM CREATININE 0.6(L) 0.7 - 1.2 mg/dL INTERFACE SYSTEM SODIUM 139 136 - 145 mEq/L INTERFACE SYSTEM POTASSIUM 4.1 3.5 - 5.0 mEq/L INTERFACE SYSTEM CHLORIDE 106 95 - 110 mEq/L INTERFACE SYSTEM CO2 28 22 - 32 mmol/l INTERFACE SYSTEM CALCIUM 8.6 8.4 - 10.5 mg/dL INTERFACE SYSTEM TOTAL PROTEIN 6.3 6.3 - 8.2 g/dL INTERFACE SYSTEM ALBUMIN 3.8 3.5 - 5.0 g/dL INTERFACE SYSTEM ALKALINE PHOSPHATASE 115(H) 25 - 100 U/L INTERFACE SYSTEM AST 41(H) 8 - 33 U/L INTERFACE SYSTEM ALT 21 4 - 36 IU/L INTERFACE SYSTEM BILIRUBIN TOTAL 0.3 0.3 - 1.2 mg/dL INTERFACE SYSTEM GLOBULIN (CALC) 2.5 2.4 - 3.9 g/dL INTERFACE SYSTEM ALBUMIN/GLOBULIN RATIO 1.5 1.0 - 2.3 INTERFACE SYSTEM ANION GAP 9 9 - 20 mEq/L INTERFACE SYSTEM OSMOLALITY, CALCULATED 284 275 - 295 mOsm/Kg INTERFACE SYSTEM 07/18/2007 3:32 PM VEHICLE SERVICE AGENT us Physician Sj Ed CHEMISTRY ORDERABLES Edited INTERFACE SYSTEM Refer to clinic/hospital department * (ABNORMAL) CBC WITH DIFFERENTIAL (07/18/2007 3:32 PM VEHICLE SERVICE AGENT) WBC 6.5 4.5 - 11.0 K/ul INTERFACE SYSTEM RBC 4.94 4.20 - 5.40 Mil/ul INTERFACE SYSTEM HEMOGLOBIN 11.9(L) 12.0 - 16.0 g/dL INTERFACE SYSTEM HEMATOCRIT 40.5 36.0 - 46.0 % INTERFACE SYSTEM MCV 82.0(L) 84.0 - 103.0 Fl INTERFACE SYSTEM MCH 24.1(L) 27.0 - 34.0 pg INTERFACE SYSTEM MCHC 29.4(L) 30.0 - 35.0 g/dL INTERFACE SYSTEM RDW 22.1(H) 11.0 - 14.5 % INTERFACE SYSTEM PLATELETS 302 140 - 440 K/ul INTERFACE SYSTEM MPV 11.0 8.9 - 12.8 Fl INTERFACE SYSTEM NEUTROPHILS 46.9 42.2 - 75.2 % INTERFACE SYSTEM LYMPHOCYTES 35.0 24.0 - 44.0 % INTERFACE SYSTEM MONOCYTES 6.5 2.0 - 10.0 % INTERFA CE SYSTEM EOSINOPHILS 11.4(H) 0.0 - 7.0 % INTERF NATHALIA SYSTEM BASOPHILS 0.2 0.0 - 1.0 % INTERFAC E SYSTEM NEUTROPHIL ABSOLUTE 3.1 2.0 - 8.0 K/ul INTERFACE SYSTEM LYMPHOCYTE ABSOLUTE 2.3 1.2 - 4.0 K/ul INTERFACE SYSTEM MONOCYTE ABSOLUTE 0.4 0.1 - 0.6 K/ul INTERFACE SYSTEM EOSINOPHIL ABSOLUTE 0.7 0.0 - 0.7 K/ul INTERFACE SYSTEM BASOPHILS ABSOLUTE 0.0 0.0 - 0.2 K/ul INTERFACE SYSTEM HEM COMMENT Automated Diff Automated Diff INTERFACE SYSTEM 07/18/2007 3:32 PM VEHICLE SERVICE AGENT us Physician Sj Ed HEMATOLOGY ORDERABLES Edited INTERFACE SYSTEM Refer to clinic/hospital department documented in this encounter Visit Diagnoses Not on filedocumented in this encounter Care Teams Examination Supervisor Relationship Specialty Start Date End Date Non-Staff, Physician NO ADDRESS ON FILE PCP - General 07/02/07 documented as of this encounter
--- OUTSIDE RECORDS SUMMARY | 2025-02-08 22:55 | XMS_ITS | Encounter Summary ---
Author Organization [facility] Address [address] [place] [address] Care Team Providers Care Die Presser Name Role Phone Non-Staff, Physician Primary Care Provider Unava ilable Encounter Details Date Type Department Care Team (Late st Contact Info) Description 07/28/2007 Emergency [facility] Emergency Department [address] [place] [address] Ed, Physician NO ADDRESS ON FILE Farshad Salinas MD NO ADDRESS ON FILE Chronic Obstructive Asthma, Unspecified (CMS/HCC); Acquired Absence of Intestine (Large) (Small); Acquired Absence of Organ, Stomach; Personal History of Tobacco Use, Presenting Hazards to Health; Family History of Stroke (Cerebrovascular); Family History of Ischemic Heart Disease; Family History of Other Cardiovascular Diseases; Personal History of Allergy to Penicillin; Personal History of Allergy to Analgesic Agent Social History Tobacco Use Types Packs/Day Years Used Date Smoking Tobacco: Never Assessed Comments Unknown Sex and Gender Information Value Date Recorded Sex Assigned at Not on file Legal Sex Female 6:52 AM CABLE SPLICER APPRENTICE Gender Identity Not on file Sexual Orientation Not on file documented as of this encounter Plan of Treatment Not on file documented as of this encounter Procedures Procedure Name Priority Date/Time Associated Diagnosis Comments POC GLUCOSE Routine 07/28/2007 3:58 PM CABLE SPLICER APPRENTICE documented in this encounter Results * (ABNORMAL) POC GLUCOSE (07/28/2007 3:58 PM CABLE SPLICER APPRENTICE) GLUCOSE POC 101(H) 60 - 100 mg/dL INTERFACE SYSTEM 07/28/2007 3:58 PM CABLE SPLICER APPRENTICE Farshad Salinas MD POINT OF CARE TESTING Ian arlene INTERFACE SYSTEM Refer to clinic/hospital department documented in this encounter Visit Diagnoses Diagnosis Chronic obstructive asthma, unspecified (CMS/HCC) Chronic obstructive asthma, unspecified 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
--- OUTSIDE RECORDS SUMMARY | 2025-02-08 22:55 | XMS_ITS | Encounter Summary ---
Author Organization [facility] Address [address] [place] [address] Care Team Providers Care National Sales Consultant Name Role Phone Non-Staff, Physician Primary Care Provider Unava ilable Encounter Details Date Type Department Care Team (Late st Contact Info) Description 07/28/2007 Outpatient Historical [facility] [address] [place] [address] [address]ANCE, [facility] Unspecified Asthma; Encounter for Long-Term (Current) Use of Other Medications; Acquired Absence of Intestine (Large) (Small); Personal History of Allergy to Penicillin; Personal History of Allergy to Analgesic Agent Social History Tobacco Use Types Packs/Day Years Used Date Smoking Tobacco: Never Assessed Comments Unknown Sex and Gender Information Value Date Recorded Sex Assigned at Not on file Legal Sex Female 6:52 AM NOODLE CATALYST MAKER Gender Identity Not on file Sexual Orientation Not on file documented as of this encounter Plan of Treatment Not on file documented as of this encounter Visit Diagnoses Diagnosis Unspecified asthma(493.90) Unspecified asthma Encounter for long-term (current) use of other medications Acquired absence of intestine (large) (small) Personal history of allergy to penicillin Personal history of allergy to analgesic agent documented in this encounter Care Teams National Sales Consultant Relationship Specialty Start Date End Date Non-Staff, Physician NO ADDRESS ON FILE PCP - General 07/02/07 documented as of this encounter
--- OUTSIDE RECORDS SUMMARY | 2025-02-08 22:55 | XMS_ITS | Encounter Summary ---
Author Organization [facility] Address [address] [place] [address] Care Team Providers Care Parcel Post Delivery Name Role Phone Non-Staff, Physician Primary Care Provider Unava ilable Encounter Details Date Type Department Care Team (Late st Contact Info) Description 08/01/2007 Emergency [facility] Emergency Department [address] [place] [address] Ed, Physician NO ADDRESS ON FILE Maxine Hodges MD [address] [facility] [address] [place] [address] Other and Unspecified Ovarian Cyst; Personal History of Peptic Ulcer Disease; Personal History of Allergy to Analgesic Agent; Personal History of Allergy to Penicillin Social History Tobacco Use Types Packs/Day Years Used Date Smoking Tobacco: Never Assessed Comments Unknown Sex and Gender Information Value Date Recorded Sex Assigned at Not on file Legal Sex Female 6:52 AM CIPHER EXPERT Gender Identity Not on file Sexual Orientation Not on file documented as of this encounter Plan of Treatment Not on file documented as of this encounter Procedures Procedure Name Priority Date/Time Associated Diagnosis Comments PT AND APTT Routine 08/01/2007 7:55 PM CIPHER EXPERT CBC WITH DIFFERENTIAL Routine 08/01/2007 7:55 PM CIPHER EXPERT HCG QUANTITATIVE, BLOOD Routine 08/01/2007 7:55 PM CIPHER EXPERT BASIC METABOLIC PANEL Routine 08/01/2007 7:55 PM CIPHER EXPERT documented in this encounter Results * BETA HCG QUANTITATIVE, BLOOD (08/01/2007 7:55 PM CIPHER EXPERT) CHORIONIC GONADOTROPIN, TOTAL <2.0 0.0 - 10.0 mlU/ML INTERFACE SYSTEM 08/01/2007 7:55 PM CIPHER EXPERT us Maxine Hodges MD CHEMISTRY ORDERABLES Edited Performing Organization Address [facility] Phone Number INTERFACE SYSTEM Refer to clinic/hospital department * (ABNORMAL) PT AND APTT (08/01/2007 7:55 PM CIPHER EXPERT) Pathologist [facility] PROTIME 12.5(L) 12.8 - 15.8 Secs INTERFACE SYSTEM INR 0.8 INTERFACE SYSTEM PTT 26.4 21.6 - 35.6 Secs INTERFACE SYSTEM 08/01/2007 7:55 PM CIPHER EXPERT us Maxine Hodges MD HEMATOLOGY ORDERABLES Edite d Performing Organization Address [facility] Number INTERFACE SYSTEM Refer to clinic/hospital department * BASIC METABOLIC PANEL (08/01/2007 7:55 PM CIPHER EXPERT) Pathologist [facility] GLUCOSE 95 70 - 110 mg/dL INTERFACE SYSTEM BUN 14 7 - 17 mg/dL INTERFACE SYSTEM CREATININE 0.7 0.7 - 1.2 mg/dL INTERFACE SYSTEM SODIUM 137 136 - 145 mEq/L INTERFACE SYSTEM POTASSIUM 4.4 3.5 - 5.0 mEq/L INTERFACE SYSTEM CHLORIDE 102 95 - 110 mEq/L INTERFACE SYSTEM CO2 27 22 - 32 mmol/l INTERFACE SYSTEM CALCIUM 9.5 8.4 - 10.5 mg/dL INTERFACE SYSTEM ANION GAP 12 9 - 20 mEq/L INTERFACE SYSTEM OSMOLALITY, CALCULATED 283 275 - 295 mOsm/Kg INTERFACE SYSTEM 08/01/2007 7:55 PM CIPHER EXPERT us Maxine Hodges MD CHEMISTRY ORDERABLES Edited Performing Organization Address [facility] Phone Number INTERFACE SYSTEM Refer to clinic/hospital department * (ABNORMAL) CBC WITH DIFFERENTIAL (08/01/2007 7:55 PM CIPHER EXPERT) Pathologist [facility] WBC 8.9 4.5 - 11.0 K/ul INTERFACE SYSTEM RBC 5.09 4.20 - 5.40 Mil/ul INTERFACE SYSTEM HEMOGLOBIN 12.8 12.0 - 16.0 g/dL INTERFACE SYSTEM HEMATOCRIT 41.3 36.0 - 46.0 % INTERFACE SYSTEM MCV 81.1(L) 84.0 - 103.0 Fl INTERFACE SYSTEM MCH 25.1(L) 27.0 - 34.0 pg INTERFACE SYSTEM MCHC 31.0 30.0 - 35.0 g/dL INTERFACE SYSTEM RDW 21.5(H) 11.0 - 14.5 % INTERFACE SYSTEM PLATELETS 242 140 - 440 K/ul INTERFACE SYSTEM MPV 11.1 8.9 - 12.8 Fl INTERFACE SYSTEM NEUTROPHILS 66.0 42.2 - 75.2 % INTERFACE SYSTEM LYMPHOCYTES 22.1(L) 24.0 - 44.0 % INTERFACE SYSTEM MONOCYTES 6.3 2.0 - 10.0 % INTERFA CE SYSTEM EOSINOPHILS 5.5 0.0 - 7.0 % INTERF NATHALIA SYSTEM BASOPHILS 0.1 0.0 - 1.0 % INTERFAC E SYSTEM NEUTROPHIL ABSOLUTE 5.9 2.0 - 8.0 K/ul INTERFACE SYSTEM LYMPHOCYTE ABSOLUTE 2.0 1.2 - 4.0 K/ul INTERFACE SYSTEM MONOCYTE ABSOLUTE 0.6 0.1 - 0.6 K/ul INTERFACE SYSTEM EOSINOPHIL ABSOLUTE 0.5 0.0 - 0.7 K/ul INTERFACE SYSTEM BASOPHILS ABSOLUTE 0.0 0.0 - 0.2 K/ul INTERFACE SYSTEM HEM COMMENT Smear Reviewed Automated Diff INTERFACE SYSTEM 08/01/2007 7:55 PM CIPHER EXPERT Maxine Hodges MD HEMATOLOGY ORDERABLES Edite d INTERFACE SYSTEM Refer to clinic/hospital department documented in this encounter Visit Diagnoses Diagnosis Other and unspecified ovarian cyst Personal history of peptic ulcer disease Personal history of allergy to analgesic agent Personal history of allergy to penicillin documented in this encounter Care Teams Parcel Post Delivery Relationship Specialty Start Date End Date Non-Staff, Physician NO ADDRESS ON FILE PCP - General 07/02/07 documented as of this encounter
--- OUTSIDE RECORDS SUMMARY | 2025-02-08 22:55 | XMS_ITS | Encounter Summary ---
Author Organization [facility] Address [address] [place] [address] Care Team Providers Care Tutoring Clinician Name Role Phone Non-Staff, Physician Primary Care Provider Unava ilable Encounter Details Date Type Department Care Team (Late st Contact Info) Description 11/13/2007 Outpatient Historical [facility] IN BED Sj Ed, Physician NO ADDRESS ON FILE Tripp Montalvo MD NO ADDRESS ON FILE Angel Rene, DO [address] [phone] Blood in Stool; Postgastric Surgery Syndromes; Other Emphysema (CMS/HCC); Paralytic Ileus (CMS/HCC); Tobacco Use Disorder; Acquired Absence of Organ, Stomach; Personal History of Peptic Ulcer Disease; Unspecified Anemia; Acquired Absence of Intestine (Large) (Small) Social History Tobacco Use Types Packs/Day Years Used Date Smoking Tobacco: Never Assessed Comments Unknown Sex and Gender Information Value Date Recorded Sex Assigned at Not on file 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 Gender Identity Not on file Sexual Orientation Not on file documented as of this encounter Plan of Treatment Not on file documented as of this encounter Procedures Procedure Name Priority Date/Time Associated Diagnosis Comments CBC WITH DIFFERENTIAL Routine 11/17/2007 3:26 AM CDT BASIC METABOLIC PANEL Routine 11/17/2007 3:26 AM CDT XR UPR GI AND SMALL BOWEL Routine 11/16/2007 11:10 AM CDT XR ABDOMEN W DECUB AND OR ERECT 2 VW Routine 11/15/2007 7:47 AM CDT CBC WITH DIFFERENTIAL Routine 11/15/2007 5:03 AM CDT BASIC METABOLIC PANEL Routine 11/15/2007 5:03 AM CDT CBC WITH DIFFERENTIAL Routine 11/14/2007 4:21 AM CDT MAGNESIUM LEVEL Routine 11/14/2007 4:21 AM CDT BASIC METABOLIC PANEL Routine 11/14/2007 4:[address] ABDOMEN PELVIS W CONTRAST Routine 11/13/2007 11:42 AM CDT documented in this encounter Results * (ABNORMAL) BASIC METABOLIC PANEL (11/17/2007 3:26 AM CDT) CREATININE 0.5(L) 0.7 - 1.2 mg/dL [facility] CALCIUM 9.0 8.4 - 10.5 mg/dL [facility] GLUCOSE 109 70 - 110 mg/dL [facility] CHLORIDE 105 95 - 110 mEq/L [facility] ANION GAP 10 9 - 20 mEq/L [facility] SODIUM 138 136 - 145 mEq/L [facility] BUN 2(L) 7 - 17 mg/dL [facility] CO2 27 22 - 32 mmol/l [facility] POTASSIUM 4.0 3.5 - 5.0 mEq/L [facility] OSMOLALITY, CALCULATED 281 275 - 295 mOsm/Kg [facility] Blood specimen (specimen) 11/17/2007 3:26 AM CDT 11/17/2007 3:54 AM CDT us Angel Rene DO CHEMISTRY ORDERABLES Final Result [facility] [address] [place] [address] * (ABNORMAL) CBC WITH DIFFERENTIAL (11/17/2007 3:26 AM CDT) HEMATOCRIT 29.9(L) 36.0 - 46.0 % [facility] EOSINOPHILS 12.3(H) 0.0 - 7.0 % [facility] PLATELETS 182 140 - 440 K/ul [facility] EOSINOPHIL ABSOLUTE 0.5 0.0 - 0.7 K/ul [facility] RBC 3.68(L) 4.20 - 5.40 Mil/ul [facility] LYMPHOCYTES 25.9 24.0 - 44.0 % [facility] MCHC 31.1 30.0 - 35.0 g/dL [facility] LYMPHOCYTE ABSOLUTE 1.0(L) 1.2 - 4.0 K/ul [facility] MCV 81.3(L) 84.0 - 103.0 Fl [facility] MPV 10.3 8.9 - 12.8 Fl [facility] BASOPHILS ABSOLUTE 0.0 0.0 - 0.2 K/ul [facility] BASOPHILS 0.3 0.0 - 1.0 % [facility] HEMOGLOBIN 9.3(L) 12.0 - 16.0 g/dL [facility] RDW 14.7(H) 11.0 - 14.5 % [facility] MONOCYTE ABSOLUTE 0.5 0.1 - 0.6 K/ul [facility] MONOCYTES 14.1(H) 2.0 - 10.0 % [facility] WBC 3.8(L) 4.5 - 11.0 K/ul [facility] MCH 25.3(L) 27.0 - 34.0 pg [facility] NEUTROPHIL ABSOLUTE 1.8(L) 2.0 - 8.0 K/ul [facility] NEUTROPHILS 47.4 42.2 - 75.2 % [facility] Blood specimen (specimen) 11/17/2007 3:26 AM CDT 11/17/2007 3:54 AM CDT us Angel Rene DO HEMATOLOGY ORDERABLES Mercedes l Result Performing Organization Address City/State/[facility] Co de Phone Number [facility] [address] [place] [address] * XR UPR GI AND SMALL BOWEL (11/16/2007 11:10 AM CDT) Anatomical Region Laterality Modality Abdomen Other 11/16/2007 11:1 0 AM CDT Narrative 11/16/2007 3:53 PM CDT Upper GI exam with small bowel follow-through study was performed. The patient has postoperative changes with Billroth procedure. There are multiple clips. Contrast was introduced through a feeding tube or NG tube. The afferent and efferent loops are identified and are unremarkable. Contrast is identified to pass from the stomach without difficulty and there is no evidence of obstruction or stricture. No fold thickening, ulceration or mass is identified. The transit time to the colon is 2-1/2 hours. No obstruction is identified. The small bowel pattern is also unremarkable without any mucosal fold thickening. Impression: Postoperative changes. No obstruction. No mucosal abnormalities. - Dictated By: Christal Acuña M.D. Electronically Signed By: Chirstal Acuña M.D. Date Signed: 11/19/07 [facility] Procedure Note Christal Acuña - 11/19/2007 Upper GI exam with small bowel follow-through study was performed. Thepatient has postoperative changes with Billroth procedure. There are multiple clips. Contrast was introducedthrough a feeding tube or NG tube. The afferent and efferent loops are identified and are unremarkable.Contrast is identified to pass from the stomach without difficulty and there is no evidence ofobstruction or stricture. No fold thickening, ulceration or mass is identified. The transit time to thecolon is 2- 1/2 hours. No obstruction is identified. The small bowel pattern is also unremarkablewithout any mucosal fold thickening. Impression: Postoperative changes. No obstruction. No mucosalabnormalities. - Dictated By: Christal Acuña M.D. Electronically Signed By: Christal Acuña M.D. Date Signed: 11/19/07 [facility] us Angel Rene DO DIAGNOSTIC IMAGING ORDERAB LES Final Result * XR ABDOMEN W DECUB AND OR ERECT (11/15/2007 7:47 AM CDT) Anatomical Region Laterality Modality Abdomen Other 11/15/2007 7:47 AM CDT Narrative 11/15/2007 9:20 AM CDT The NG tube extends into the mid stomach. Contrast is present in the proximal colon. Bowel anastomotic sutures are seen throughout the mid abdomen. No abnormal small bowel distention is present. Impression: Largely unremarkable appearance of the bowel gas. - Dictated By: Carmelo Granda M.D. Electronically Signed By: Carmelo Granda M.D. Date Signed: 11/15/07 Procedure Note Carmelo Granda - 11/15/2007 The NG tube extends into the mid stomach. Contrast is present in theproximal colon. Bowel anastomotic sutures are seen throughout the mid abdomen. No abnormal small boweldistention is present. Impression: Largely unremarkable appearance of the bowel gas. - Dictated By: Carmelo Granda M.D. Electronically Signed By: Carmelo Granda M.D. Date Signed: 11/15/07 Angel Rene DO DIAGNOSTIC IMAGING ORDERAB LES Final Result * (ABNORMAL) BASIC METABOLIC PANEL (11/15/2007 5:03 AM CDT) BUN <2(L) 7 - 17 mg/dL [facility] CO2 31 22 - 32 mmol/l [facility] POTASSIUM 4.4 3.5 - 5.0 mEq/L [facility] OSMOLALITY, CALCULATED <287 275 - 295 mOsm/Kg [facility] CREATININE 0.6(L) 0.7 - 1.2 mg/dL [facility] CALCIUM 8.9 8.4 - 10.5 mg/dL [facility] GLUCOSE 111(H) 70 - 110 mg/dL [facility] CHLORIDE 104 95 - 110 mEq/L [facility] ANION GAP 10 9 - 20 mEq/L [facility] SODIUM 141 136 - 145 mEq/L [facility] Blood specimen (specimen) 11/15/2007 5:03 AM CDT 11/15/2007 6:00 AM CDT us Angel Rene DO CHEMISTRY ORDERABLES Final Result [facility] [address] [place] [address] * (ABNORMAL) CBC WITH DIFFERENTIAL (11/15/2007 5:03 AM CDT) LYMPHOCYTE ABSOLUTE 1.4 1.2 - 4.0 K/ul [facility] MCV 82.2(L) 84.0 - 103.0 Fl [facility] MPV 10.2 8.9 - 12.8 Fl [facility] BASOPHILS ABSOLUTE 0.0 0.0 - 0.2 K/ul [facility] BASOPHILS 0.1 0.0 - 1.0 % [facility] HEMOGLOBIN 9.6(L) 12.0 - 16.0 g/dL [facility] RDW 14.7(H) 11.0 - 14.5 % [facility] MONOCYTE ABSOLUTE 0.7(H) 0.1 - 0.6 K/ul [facility] MONOCYTES 9.6 2.0 - 10.0 % [facility] WBC 7.2 4.5 - 11.0 K/ul [facility] MCH 25.2(L) 27.0 - 34.0 pg [facility] NEUTROPHIL ABSOLUTE 4.6 2.0 - 8.0 K/ul [facility] NEUTROPHILS 64.0 42.2 - 75.2 % [facility] HEMATOCRIT 31.3(L) 36.0 - 46.0 % [facility] PLATELETS 220 140 - 440 K/ul [facility] EOSINOPHILS 6.7 0.0 - 7.0 % [facility] EOSINOPHIL ABSOLUTE 0.5 0.0 - 0.7 K/ul [facility] RBC 3.81(L) 4.20 - 5.40 Mil/ul [facility] MCHC 30.7 30.0 - 35.0 g/dL [facility] LYMPHOCYTES 19.6(L) 24.0 - 44.0 % [facility] Blood specimen (specimen) 11/15/2007 5:03 AM CDT 11/15/2007 6:00 AM CDT Angel Rene DO HEMATOLOGY ORDERABLES Mercedes l Result Performing Organization Address [facility] de Phone Number [facility] [address] [place] [address] * MAGNESIUM LEVEL (11/14/2007 4:21 AM CDT) MAGNESIUM 1.9 1.7 - 2.4 mg/dL [facility] Blood specimen (specimen) 11/14/2007 4:21 AM CDT 11/14/2007 4:43 AM CDT Angel Rene DO CHEMISTRY ORDERABLES Final Result Performing Organization Address [facility] Phone Number [facility] [address] [place] [address] * (ABNORMAL) BASIC METABOLIC PANEL (11/14/2007 4:21 AM CDT) CREATININE 0.5(L) 0.7 - 1.2 mg/dL [facility] CALCIUM 8.2(L) 8.4 - 10.5 mg/dL [facility] GLUCOSE 113(H) 70 - 110 mg/dL [facility] CHLORIDE 110 95 - 110 mEq/L [facility] SODIUM 139 136 - 145 mEq/L [facility] ANION GAP 10 9 - 20 mEq/L [facility] BUN 4(L) 7 - 17 mg/dL [facility] CO2 23 22 - 32 mmol/l [facility] OSMOLALITY, CALCULATED 284 275 - 295 mOsm/Kg [facility] POTASSIUM 4.0 3.5 - 5.0 mEq/L [facility] Blood specimen (specimen) 11/14/2007 4:21 AM CDT 11/14/2007 4:43 AM CDT Angel Rene DO CHEMISTRY ORDERABLES Final Result [facility] [address] [place] [address] * (ABNORMAL) CBC WITH DIFFERENTIAL (11/14/2007 4:21 AM CDT) RBC 3.84(L) 4.20 - 5.40 Mil/ul [facility] MCHC 30.7 30.0 - 35.0 g/dL [facility] MONOCYTE ABSOLUTE 0.6 0.1 - 0.6 K/ul [facility] LYMPHOCYTES 31.5 24.0 - 44.0 % [facility] MCV 81.5(L) 84.0 - 103.0 Fl [facility] NEUTROPHIL ABSOLUTE 2.4 2.0 - 8.0 K/ul [facility] MPV 10.3 8.9 - 12.8 Fl [facility] HEMOGLOBIN 9.6(L) 12.0 - 16.0 g/dL [facility] MONOCYTES 11.6(H) 2.0 - 10.0 % [facility] RDW 14.8(H) 11.0 - 14.5 % [facility] EOSINOPHIL ABSOLUTE 0.4 0.0 - 0.7 K/ul [facility] WBC 5.0 4.5 - 11.0 K/ul [facility] NEUTROPHILS 48.7 42.2 - 75.2 % [facility] MCH 25.0(L) 27.0 - 34.0 pg [facility] LYMPHOCYTE ABSOLUTE 1.6 1.2 - 4.0 K/ul [facility] HEMATOCRIT 31.3(L) 36.0 - 46.0 % [facility] PLATELETS 217 140 - 440 K/ul [facility] EOSINOPHILS 8.2(H) 0.0 - 7.0 % [facility] Blood specimen (specimen) 11/14/2007 4:21 AM CDT 11/14/2007 4:43 AM CDT us Angel Rene DO HEMATOLOGY ORDERABLES Mercedes l Result [facility] [place] [address] [place] [address] * CT ABDOMEN PELVIS W CONTRAST (11/13/2007 11:42 AM CDT) Anatomical Region Laterality Modality Abdomen Other 11/13/2007 11:4 2 AM CDT Narrative 11/13/2007 12:24 PM CDT Exam: CT Abdomen, Pelvis, w/contrast Date/Time of Exam: Nov 13, 2007 11:42:26 AM History: Please see order comments. Axial tomograms obtained through the abdomen and pelvis with Optiray-240 intravenous contrast, 75 mL. Oral and rectal contrast administered. Patient unable to fully retain rectal contrast. Visualized lung bases unremarkable. Nonspecific mild generalized thickening and nodularity of left adrenal gland. Partial malrotation of right kidney. Remainder of solid upper intra-abdominal organs unremarkable. Nonspecific appearing gallbladder. Nonspecific appearing gynecologic organs. Tubal ligation clips. Postsurgical residuals associated with partial gastrectomy and partial colectomy within upper abdomen. Remaining colon is mildly distended with retained stool. Multiple fluid filled distended loops of small bowel within right side of the abdomen and pelvis. Several mildly distended contrast filled loops of small bowel within left side of the abdomen. Several normal caliber loops of small bowel also within left side of abdomen. A transition zone is not readily apparent of bowel structures. No free fluid or free air. No apparent lymphadenopathy by size criteria. Impression: Overall bowel gas pattern indeterminate for small bowel ileus versus partial small bowel obstruction from adhesions. Clinical correlation recommended. - Dictated By: Kermit Bryant M.D. Electronically Signed By: Kermit Bryant M.D. Date Signed: 11/13/07 [facility] Procedure Note Kermit Bryant S - 11/13/2007 Exam: CT Abdomen, Pelvis, w/contrast Date/Time of Exam: Nov 13, 2007 11:42:26 AM History: Please see order comments. Axial tomograms obtained through the abdomen and pelvis with Optiray- 240intravenous contrast, 75 mL. Oral and rectal contrast administered. Patient unable to fully retainrectal contrast. Visualized lung bases unremarkable. Nonspecific mild generalizedthickening and nodularity of left adrenal gland. Partial malrotation of right kidney. Remainder of solidupper intra-abdominal organs unremarkable. Nonspecific appearing gallbladder. Nonspecific appearinggynecologic organs. Tubal ligation clips. Postsurgical residuals associated with partial gastrectomyand partial colectomy within upper abdomen. Remaining colon is mildly distended with retained stool.Multiple fluid filled distended loops of small bowel within right side of the abdomen and pelvis. Severalmildly distended contrast filled loops of small bowel within left side of the abdomen. Severalnormal caliber loops of small bowel also within left side of abdomen. A transition zone is not readilyapparent of bowel structures. No free fluid or free air. No apparent lymphadenopathy by size criteria. Impression: Overall bowel gas pattern indeterminate for small bowel ileusversus partial small bowel obstruction from adhesions. Clinical correlation recommended. - Dictated By: Kermit Bryant M.D. Electronically Signed By: Kermit Bryant M.D. Date Signed: 11/13/07 [facility] us Tripp Montalvo MD CT ORDERABLES Final Result documented in this encounter Visit Diagnoses Diagnosis Blood in stool Postgastric surgery syndromes Other emphysema (CMS/HCC) Other emphysema Paralytic ileus (CMS/HCC) Paralytic ileus Tobacco use disorder Acquired absence of organ, stomach Personal history of peptic ulcer disease Anemia, unspecified Acquired absence of intestine (large) (small) documented in this encounter Care Teams Tutoring Clinician Relationship Specialty Start Date End Date Non-Staff, Physician NO ADDRESS ON FILE PCP - General 07/02/07 documented as of this encounter
--- OUTSIDE RECORDS SUMMARY | 2025-02-08 22:55 | XMS_ITS | Encounter Summary ---
Author Organization [facility] Address [address] [place] [address] Care Team Providers Care Television Repairman Name Role Phone Non-Staff, Physician Primary Care Provider Unava ilable Encounter Details Date Type Department Care Team (Late st Contact Info) Description 07/27/2007 Outpatient Historical [facility] [address] 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
--- OUTSIDE RECORDS SUMMARY | 2025-02-08 22:55 | XMS_ITS | Encounter Summary ---
Author Organization [facility] Address [address] [place] [address] Care Team Providers Care Shift Manager Name Role Phone Non-Staff, Physician Primary Care Provider Unava ilable Encounter Details Date Type Department Care Team (Late st Contact Info) Description 08/16/2007 Outpatient Historical [facility] [address] 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
--- OUTSIDE RECORDS SUMMARY | 2025-02-08 22:55 | XMS_ITS | Patient Health Record ---
Author Organization [facility] Address [address] [place] [address] Care Team Providers Care Medication Specialist Name Role Phone Carmelo Holguin Unavailable [phone] Reason For Referral No Information Problems Problem Type SNOMED Code ICD Code Onset Dates Problem Status W/U Status Risk Notes Problem Pain in limb (45052529) Leg pain (729.5) 09/06/19 16 Active confirmed [id number]- Problem Migraine with aura (3687310) Classic migraine (346.00) 12/15/19 18 Active confirmed [id number]- Problem Unexplained weight loss (265964737) Unexplained weight loss (783.21) 12/26/19 18 Active confirmed [id number]- Problem Hip pain (93357985) Hip pain (719.45) 09/06/19 16 Active confirmed [id number]- Problem Anemia (803750277) Other specified anemia (285.8) 11/06/19 18 Active confirmed [id number]- Problem Headache (72816659) Headache (784.0) 11/06/19 18 Problem resolved confirmed [id number]- Problem Vitamin B12 deficiency (non anemic) (23395870) B12 deficiency (266.2) 11/06/19 18 Problem resolved confirmed [id number]- Problem 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) Other abnormal findings on blood examination (790.99) 01/16/20 18 Problem resolved confirmed [id number]- Problem Pain in female pelvis (409364145) Female pelvic pain (625.9) 09/06/19 16 Problem resolved confirmed [id number] 11- Problem Weight loss (398792193) Weight loss (783.9) 11/06/19 18 Problem resolved confirmed [id number]- Problem Emphysema (66405571) Emphysema, other (492.8) 09/06/19 16 Problem resolved confirmed [id number] 11- Problem Exposure to communicable disease (700958351) Contact with or exposure to communicable diseases, unspecified (V01.9) 09/06/19 16 Problem resolved confirmed [id number] 11- Problem Screening for malignant neoplasm of breast (068899391) Screening for breast cancer, unspecified (V76.10) 12/26/19 18 Problem resolved confirmed [id number] 11- Plan Of Treatment No Information
--- OUTSIDE RECORDS SUMMARY | 2025-02-08 22:55 | XMS_ITS | Clinical Summary ---
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 Gender Identity Not on file Sexual Orientation Not on file Plan of Treatment Health Maintenance Due Date Last Done Comments DTAP/TDAP/TD VACCINES (1 - Tdap) 02/29/1984 HEPATITIS B VACCINES (1 of 3 - 19+ 3-dose series) 02/01 HPV/Cotest (21-29) 1986 CERVICAL CANCER SCREENING 1995 HPV/Cotest (30-65) 1995 PAP SMEAR 1995 BREAST CANCER SCREENING 2005 COLORECTAL SCREENING 2010 Colorectal Cancer Screening 2010 FIT-DNA Q 3 years 2010 FIT/FOBT Q 1 year 2010 Flex Sig/CT Colonography Q 5 years 2010 ZOSTER VACCINE (1 of 2) 2015 INFLUENZA VACCINE (#1) 2025 Insurance MEDICAID [place] Care Teams Acid Tender Relationship Specialty Start Date End Date Non-Staff, Physician NO ADDRESS ON FILE PCP - General 07/02/07
--- OUTSIDE RECORDS SUMMARY | 2025-02-08 22:55 | XMS_ITS | Encounter Summary ---
Author Organization [facility] Address [address] [place] [address] Care Team Providers Care Wage Analyst Name Role Phone Non-Staff, Physician Primary Care Provider Unava ilable Encounter Details Date Type Department Care Team (Late st Contact Info) Description 07/28/2007 Outpatient Historical [facility] [address] 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
--- OUTSIDE RECORDS SUMMARY | 2025-02-08 22:55 | XMS_ITS | Encounter Summary ---
Author Organization [facility] Address [address] [place] [address] Care Team Providers Care Fur Feeder Name Role Phone Non-Staff, Physician Primary Care Provider Unava ilable Encounter Details Date Type Department Care Team (Late st Contact Info) Description 07/25/2007 Emergency [facility] Emergency Department [address] 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
--- OUTSIDE RECORDS SUMMARY | 2025-02-08 22:55 | XMS_ITS | Encounter Summary ---
Author Organization [facility] Address [address] [place] [address] Care Team Providers Care Rn Lpn Cna Name Role Phone Non-Staff, Physician Primary Care Provider Unava ilable Encounter Details Date Type Department Care Team (Late st Contact Info) Description 07/30/2007 Outpatient [facility] [address] 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
--- OUTSIDE RECORDS SUMMARY | 2025-02-08 22:55 | XMS_ITS | Encounter Summary ---
Author Organization [facility] Address [address] [place] [address] Care Team Providers Care Security Checker Name Role Phone Non-Staff, Physician Primary Care Provider Unava ilable Encounter Details Date Type Department Care Team (Late st Contact Info) Description 07/27/2007 Emergency [facility] Emergency Department [address] [place] [address] Ed, Physician NO ADDRESS ON FILE Justen Lipscomb MD NO ADDRESS ON FILE Social History Tobacco Use Types Packs/Day Years Used Date Smoking Tobacco: Never Assessed Comments Unknown Sex and Gender Information Value Date Recorded Sex Assigned at Not on file Legal Sex Female 6:52 AM [employer] Gender Identity Not on file Sexual Orientation Not on file documented as of this encounter Plan of Treatment Not on file documented as of this encounter Visit Diagnoses Not on filedocumented in this encounter Care Teams Security Checker Relationship Specialty Start Date End Date Non-Staff, Physician NO ADDRESS ON FILE PCP - General 07/02/07 documented as of this encounter
--- OUTSIDE RECORDS SUMMARY | 2025-02-08 22:55 | XMS_ITS | Encounter Summary ---
Author Organization [employer] [facility] Address [address] [place] [address] Care Team Providers Care Furnace Converter Name Role Phone Non-Staff, Physician Primary Care Provider Unava ilable Encounter Details Date Type Department Care Team (Late st Contact Info) Description 07/01/2007 Outpatient Historical HIS IN BED Sj Ed, Physician NO ADDRESS ON FILE Marissa Hardin MD NO ADDRESS ON FILE Chon Mobley MD [address] [place] [address] Namita Grant MD [address] [place] [address] Luis Alfredo Slade MD [address] [place] [address] Amado Hope MD NO ADDRESS ON FILE Mal Baer, DO [address] [place] [address] Adjustment Disorder with Depressed Mood; Rectal Prolapse; Blood in Stool; Urinary Tract Infection, Site not Specified; Iron Deficiency Anemia Secondary to Blood Loss (Chronic); Gastroparesis; Suicidal Ideation; Foreign Body in Stomach; Other Emphysema (CMS/HCC); Other Vitamin B12 Deficiency Anemia; Postgastric Surgery Syndromes; Unspecified Hemorrhoids without Mention of Complication; Benign Neoplasm of Rectum and Anal Canal; Intestinal Bypass or Anastomosis Status; Acquired Absence of Organ, Stomach; Foreign Body Accidentally Entering Other Orifice; Other Chronic Pain; Tobacco Use Disorder; Lumbago; Unspecified Place of Occurrence Social History Tobacco Use Types Packs/Day Years Used Date Smoking Tobacco: Never Assessed Comments Unknown Sex and Gender Information Value Date Recorded Sex Assigned at Not on file Legal Sex Female 6:52 AM DATA WAREHOUSING MANAGER Gender Identity Not on file Sexual Orientation Not on file documented as of this encounter Plan of Treatment Not on file documented as of this encounter Procedures Procedure Name Priority Date/Time Associated Diagnosis Comments CBC WITH DIFFERENTIAL Routine 07/09/2007 9:30 AM DATA WAREHOUSING MANAGER DIFFERENTIAL, MANUAL Routine 07/07/2007 2:30 AM DATA WAREHOUSING MANAGER CBC WITH DIFFERENTIAL Routine 07/07/2007 2:30 AM DATA WAREHOUSING MANAGER BASIC METABOLIC PANEL Routine 07/07/2007 2:30 AM DATA WAREHOUSING MANAGER URINALYSIS MICROSCOPY ONLY Routine 07/06/2007 1:09 PM DATA WAREHOUSING MANAGER URINALYSIS W/REFLEX MICROSCOPIC Routine 07/06/2007 1:09 PM DATA WAREHOUSING MANAGER ENDOMYSIAL IGA AUTOANTIBODY Routine 07/06/2007 11:38 AM DATA WAREHOUSING MANAGER HEMOGLOBIN AND HEMATOCRIT Routine 07/05/2007 3:28 AM DATA WAREHOUSING MANAGER CBC WITH DIFFERENTIAL Routine 07/04/2007 2:53 AM DATA WAREHOUSING MANAGER BASIC METABOLIC PANEL Routine 07/04/2007 2:53 AM DATA WAREHOUSING MANAGER HEMOGLOBIN AND HEMATOCRIT Routine 07/03/2007 4:05 AM DATA WAREHOUSING MANAGER HEMOGLOBIN AND HEMATOCRIT Routine 07/02/2007 2:09 PM DATA WAREHOUSING MANAGER CARDIAC ENZYMES Routine 07/02/2007 6:27 AM DATA WAREHOUSING MANAGER CBC WITH DIFFERENTIAL Routine 07/02/2007 4:23 AM DATA WAREHOUSING MANAGER COMPREHENSIVE METABOLIC PANEL Routine 07/02/2007 4:23 AM DATA WAREHOUSING MANAGER FOLATE, SERUM Routine 07/02/2007 12:04 AM DATA WAREHOUSING MANAGER IRON, TIBC, AND PERCENT SATURATION Routine 07/02/2007 12:04 AM DATA WAREHOUSING MANAGER CARDIAC ENZYMES Routine 07/02/2007 12:04 AM DATA WAREHOUSING MANAGER FERRITIN Routine 07/02/2007 12:04 AM DATA WAREHOUSING MANAGER VITAMIN B12 LEVEL Routine 07/02/2007 12: 04 AM DATA WAREHOUSING MANAGER XR CHEST PA OR AP 1 VW Routine 7 7:27 PM DATA WAREHOUSING MANAGER CARDIAC ENZYMES Routine 07/01/2007 6:11 PM DATA WAREHOUSING MANAGER CBC WITH DIFFERENTIAL Routine 07/01/2007 6:11 PM DATA WAREHOUSING MANAGER PTT Routine 07/01/2007 6:11 PM DATA WAREHOUSING MANAGER PROTIME-INR Routine 07/01/2007 6:11 PM DATA WAREHOUSING MANAGER HCG QUANTITATIVE, BLOOD Routine 07/01/2007 6:11 PM DATA WAREHOUSING MANAGER TSH Routine 07/01/2007 6:11 PM DATA WAREHOUSING MANAGER BASIC METABOLIC PANEL Routine 07/01/2007 6:11 PM DATA WAREHOUSING MANAGER documented in this encounter Results * (ABNORMAL) CBC WITH DIFFERENTIAL (07/09/2007 9:30 AM DATA WAREHOUSING MANAGER) WBC 6.3 4.5 - 11.0 K/ul INTERFACE SYSTEM RBC 5.06 4.20 - 5.40 Mil/ul INTERFACE SYSTEM HEMOGLOBIN 12.0 12.0 - 16.0 g/dL INTERFACE SYSTEM HEMATOCRIT 40.3 36.0 - 46.0 % INTERFACE SYSTEM MCV 79.6(L) 84.0 - 103.0 Fl INTERFACE SYSTEM MCH 23.7(L) 27.0 - 34.0 pg INTERFACE SYSTEM MCHC 29.8(L) 30.0 - 35.0 g/dL INTERFACE SYSTEM RDW 22.3(H) 11.0 - 14.5 % INTERFACE SYSTEM PLATELETS 248 140 - 440 K/ul INTERFACE SYSTEM MPV 11.0 8.9 - 12.8 Fl INTERFACE SYSTEM NEUTROPHILS 52.6 42.2 - 75.2 % INTERFACE SYSTEM LYMPHOCYTES 21.7(L) 24.0 - 44.0 % INTERFACE SYSTEM MONOCYTES 7.1 2.0 - 10.0 % INTERFA CE SYSTEM EOSINOPHILS 18.4(H) 0.0 - 7.0 % INTERF NATHALIA SYSTEM BASOPHILS 0.2 0.0 - 1.0 % INTERFAC E SYSTEM NEUTROPHIL ABSOLUTE 3.3 2.0 - 8.0 K/ul INTERFACE SYSTEM LYMPHOCYTE ABSOLUTE 1.4 1.2 - 4.0 K/ul INTERFACE SYSTEM MONOCYTE ABSOLUTE 0.5 0.1 - 0.6 K/ul INTERFACE SYSTEM EOSINOPHIL ABSOLUTE 1.2(H) 0.0 - 0.7 K/ul INTERFACE SYSTEM BASOPHILS ABSOLUTE 0.0 0.0 - 0.2 K/ul INTERFACE SYSTEM PERIPHERAL BLOOD SMEAR REVIEW Automated Diff Automated Diff INTERFACE SYSTEM 07/09/2007 9:30 AM DATA WAREHOUSING MANAGER Narrative INTERFACE SYSTEM - 07/09/2007 9:41 AM DATA WAREHOUSING MANAGER Ordered by an unspecified provider. Historical Provider HEMATOLOGY ORDERABLES Edited INTERFACE SYSTEM Refer to clinic/hospital department * (ABNORMAL) DIFFERENTIAL, MANUAL (07/07/2007 2:30 AM DATA WAREHOUSING MANAGER) NEUTROPHILS, SEG 60 36 - 66 % INT ERFACE SYSTEM BANDS 3 0 - 6 % INTERFACE SYSTEM LYMPHOCYTES 24 24 - 44 % INTERFAC E SYSTEM MONOCYTE 2(L) 4 - 10 % INTERFACE SYSTEM EOSINOPHILS 11(H) 0 - 3 % INTERFAC E SYSTEM PLATELET EST. Normal Normal INTERF NATHALIA SYSTEM RBC MORPHOLOGY Abnormal(A ) Normal INTERFACE SYSTEM ANISOCYTOSIS 1+(A) None Seen INTERFA CE SYSTEM POIKILOCYTES 1+(A) None Seen INTERFA CE SYSTEM POLYCHROMASIA 1+(A) None Seen INTERF NATHALIA SYSTEM SCHISTOCYTES 1+(A) None Seen INTERFA CE SYSTEM SMUDGE CELLS Few(A) None Seen INTERFA CE SYSTEM 07/07/2007 2:30 AM DATA WAREHOUSING MANAGER Chon Mobley MD HEMATOLOGY ORDERABLES COM Ed ited INTERFACE SYSTEM Refer to clinic/hospital department * (ABNORMAL) BASIC METABOLIC PANEL (07/07/2007 2:30 AM DATA WAREHOUSING MANAGER) GLUCOSE 69(L) 70 - 110 mg/dL INTERFACE SYSTEM BUN 3(L) 7 - 17 mg/dL INTERFACE SYSTEM CREATININE 0.8 0.7 - 1.2 mg/dL INTERFACE SYSTEM SODIUM 141 136 - 145 mEq/L INTERFACE SYSTEM POTASSIUM 3.7 3.5 - 5.0 mEq/L INTERFACE SYSTEM CHLORIDE 110 95 - 110 mEq/L INTERFACE SYSTEM CO2 27 22 - 32 mmol/l INTERFACE SYSTEM CALCIUM 8.4 8.4 - 10.5 mg/dL INTERFACE SYSTEM ANION GAP 8(L) 9 - 20 mEq/L INTERFACE SYSTEM OSMOLALITY, CALCULATED 284 275 - 295 mOsm/Kg INTERFACE SYSTEM 07/07/2007 2:30 AM DATA WAREHOUSING MANAGER Chon Mobley MD CHEMISTRY ORDERABLES Edited Performing Organization Address [facility] de Phone Number INTERFACE SYSTEM Refer to clinic/hospital department * (ABNORMAL) CBC WITH DIFFERENTIAL (07/07/2007 2:30 AM DATA WAREHOUSING MANAGER) Pathologist [facility] WBC 6.0 4.5 - 11.0 K/ul INTERFACE SYSTEM RBC 4.27 4.20 - 5.40 Mil/ul INTERFACE SYSTEM HEMOGLOBIN 10.2(L) 12.0 - 16.0 g/dL INTERFACE SYSTEM HEMATOCRIT 33.9(L) 36.0 - 46.0 % INTERFACE SYSTEM MCV 79.4(L) 84.0 - 103.0 Fl INTERFACE SYSTEM MCH 23.9(L) 27.0 - 34.0 pg INTERFACE SYSTEM MCHC 30.1 30.0 - 35.0 g/dL INTERFACE SYSTEM RDW 21.7(H) 11.0 - 14.5 % INTERFACE SYSTEM PLATELETS 239 140 - 440 K/ul INTERFACE SYSTEM MPV 10.4 8.9 - 12.8 Fl INTERFACE SYSTEM 07/07/2007 2:30 AM DATA WAREHOUSING MANAGER Chon Mobley MD HEMATOLOGY ORDERABLES Edited Performing Organization Address [facility] de Phone Number INTERFACE SYSTEM Refer to clinic/hospital department * (ABNORMAL) URINALYSIS MICROSCOPY ONLY (07/06/2007 1:09 PM DATA WAREHOUSING MANAGER) WBC URINE 0-2 0 - 2 INTERFACE SYSTEM RBC UA 6-10(A) 0 - 2 INTERFACE SYSTEM HYALINE CAST None Seen 0 - 2 INTERFA CE SYSTEM BACTERIA UA Many(A) None Seen INTERFAC E SYSTEM 07/06/2007 1:09 PM DATA WAREHOUSING MANAGER us Chon Mobley MD URINE ORDERABLES Edited Performing Organization Address [facility] Phone Number INTERFACE SYSTEM Refer to clinic/hospital department * (ABNORMAL) URINALYSIS (07/06/2007 1:09 PM DATA WAREHOUSING MANAGER) COLOR UA Yellow Straw INTERFACE SYSTEM CLARITY UA SL CLOUDY Clear INTERFACE SYSTEM LEUKOCYTE ESTERASE UA NEGATIVE NEGATIVE INTERFACE SYSTEM NITRITE UA POSITIVE(A) NEGATIVE INTERFA CE SYSTEM PH UA 8.0 5.0 - 9.0 INTERFACE SYSTEM PROTEIN UA NEGATIVE NEGATIVE INTERFACE SYSTEM GLUCOSE UA NEGATIVE NEGATIVE INTERFACE SYSTEM KETONES UA NEGATIVE NEGATIVE INTERFACE SYSTEM UROBILINOGEN UA 0.2 0.2 INTE RFACE SYSTEM BILIRUBIN UA NEGATIVE NEGATIVE INTERFA CE SYSTEM BLOOD UA Large(A) NEGATIVE INTERFACE SYSTEM SPECIFIC GRAVITY UA 1.015 <=1.005 INTERFACE SYSTEM MICRO EXAM Yes(A) No INTERFACE SYSTEM 07/06/2007 1:09 PM DATA WAREHOUSING MANAGER us Chon Mobley MD URINE ORDERABLES Edited Performing Organization Address [facility] Phone Number INTERFACE SYSTEM Refer to clinic/hospital department * ENDOMYSIAL IGA AUTOANTIBODY (07/06/2007 11:38 AM DATA WAREHOUSING MANAGER) ENDOMYSIAL AB IGA See Sep Report INTERFACE SYSTEM 07/06/2007 11:3 8 AM DATA WAREHOUSING MANAGER us Chon Mobley MD CHEMISTRY ORDERABLES Edited Performing Organization Address [facility] Phone Number INTERFACE SYSTEM Refer to clinic/hospital department * (ABNORMAL) HEMOGLOBIN AND HEMATOCRIT (07/05/2007 3:28 AM DATA WAREHOUSING MANAGER) HEMOGLOBIN 9.8(L) 12.0 - 16.0 g/dL INTERFACE SYSTEM HEMATOCRIT 33.1(L) 36.0 - 46.0 % INTERFACE SYSTEM 07/05/2007 3:28 AM DATA WAREHOUSING MANAGER Chon Mobley MD HEMATOLOGY ORDERABLES Edited Performing Organization Address [facility] Phone Number INTERFACE SYSTEM Refer to clinic/hospital department * (ABNORMAL) BASIC METABOLIC PANEL (07/04/2007 2:53 AM DATA WAREHOUSING MANAGER) GLUCOSE 91 70 - 110 mg/dL INTERFACE SYSTEM BUN 4(L) 7 - 17 mg/dL INTERFACE SYSTEM CREATININE 0.5(L) 0.7 - 1.2 mg/dL INTERFACE SYSTEM SODIUM 140 136 - 145 mEq/L INTERFACE SYSTEM POTASSIUM 3.3(L) 3.5 - 5.0 mEq/L INTERFACE SYSTEM CHLORIDE 109 95 - 110 mEq/L INTERFACE SYSTEM CO2 26 22 - 32 mmol/l INTERFACE SYSTEM CALCIUM 7.5(L) 8.4 - 10.5 mg/dL INTERFACE SYSTEM ANION GAP 8(L) 9 - 20 mEq/L INTERFACE SYSTEM OSMOLALITY, CALCULATED 283 275 - 295 mOsm/Kg INTERFACE SYSTEM 07/04/2007 2:53 AM DATA WAREHOUSING MANAGER Chon Mobley MD CHEMISTRY ORDERABLES Edited Performing Organization Address [facility] Phone Number INTERFACE SYSTEM Refer to clinic/hospital department * (ABNORMAL) CBC WITH DIFFERENTIAL (07/04/2007 2:53 AM DATA WAREHOUSING MANAGER) WBC 6.6 4.5 - 11.0 K/ul INTERFACE SYSTEM RBC 4.08(L) 4.20 - 5.40 Mil/ul INTERFACE SYSTEM HEMOGLOBIN 9.5(L) 12.0 - 16.0 g/dL INTERFACE SYSTEM HEMATOCRIT 31.2(L) 36.0 - 46.0 % INTERFACE SYSTEM MCV 76.5(L) 84.0 - 103.0 Fl INTERFACE SYSTEM MCH 23.3(L) 27.0 - 34.0 pg INTERFACE SYSTEM MCHC 30.4 30.0 - 35.0 g/dL INTERFACE SYSTEM RDW 20.0(H) 11.0 - 14.5 % INTERFACE SYSTEM PLATELETS 262 140 - 440 K/ul INTERFACE SYSTEM MPV 10.2 8.9 - 12.8 Fl INTERFACE SYSTEM NEUTROPHILS 48.7 42.2 - 75.2 % INTERFACE SYSTEM LYMPHOCYTES 26.5 24.0 - 44.0 % INTERFACE SYSTEM MONOCYTES 12.7(H) 2.0 - 10.0 % INTERFA CE SYSTEM EOSINOPHILS 11.9(H) 0.0 - 7.0 % INTERF NATHALIA SYSTEM BASOPHILS 0.2 0.0 - 1.0 % INTERFAC E SYSTEM NEUTROPHIL ABSOLUTE 3.2 2.0 - 8.0 K/ul INTERFACE SYSTEM LYMPHOCYTE ABSOLUTE 1.8 1.2 - 4.0 K/ul INTERFACE SYSTEM MONOCYTE ABSOLUTE 0.8(H) 0.1 - 0.6 K/ul INTERFACE SYSTEM EOSINOPHIL ABSOLUTE 0.8(H) 0.0 - 0.7 K/ul INTERFACE SYSTEM BASOPHILS ABSOLUTE 0.0 0.0 - 0.2 K/ul INTERFACE SYSTEM PERIPHERAL BLOOD SMEAR REVIEW Automated Diff Automated Diff INTERFACE SYSTEM 07/04/2007 2:53 AM DATA WAREHOUSING MANAGER Chon Mobley MD HEMATOLOGY ORDERABLES Edited Performing Organization Address City/[facility] de Phone Number INTERFACE SYSTEM Refer to clinic/hospital department * (ABNORMAL) HEMOGLOBIN AND HEMATOCRIT (07/03/2007 4:05 AM DATA WAREHOUSING MANAGER) HEMOGLOBIN 9.8(L) 12.0 - 16.0 g/dL INTERFACE SYSTEM HEMATOCRIT 32.0(L) 36.0 - 46.0 % INTERFACE SYSTEM 07/03/2007 4:05 AM DATA WAREHOUSING MANAGER Chon Mobley MD HEMATOLOGY ORDERABLES Edited Performing Organization Address City/[facility] de Phone Number INTERFACE SYSTEM Refer to clinic/hospital department * (ABNORMAL) HEMOGLOBIN AND HEMATOCRIT (07/02/2007 2:09 PM DATA WAREHOUSING MANAGER) HEMOGLOBIN 9.8(L) 12.0 - 16.0 g/dL INTERFACE SYSTEM HEMATOCRIT 31.7(L) 36.0 - 46.0 % INTERFACE SYSTEM 07/02/2007 2:09 PM DATA WAREHOUSING MANAGER Chon Mobley MD HEMATOLOGY ORDERABLES Edited Performing Organization Address City/[facility] Co de Phone Number INTERFACE SYSTEM Refer to clinic/hospital department * CARDIAC ENZYMES (07/02/2007 6:27 AM DATA WAREHOUSING MANAGER) TROPONIN I <0.1 0.0 - 1.3 ng/mL INTERFACE SYSTEM Comment: As of 06 the Troponin Reference Range has changed from 0.0-1.5 ng/ml to 0.0- 1.3 ng/ml due to a change in testing methodology. CKMB <0.2 0.0 - 5.0 ng/mL INTERFACE SYSTEM 07/02/2007 6:27 AM DATA WAREHOUSING MANAGER us Marissa Hardin MD CHEMISTRY ORDERABLES Edited Performing Organization Address [facility] de Phone Number INTERFACE SYSTEM Refer to clinic/hospital department * (ABNORMAL) COMPREHENSIVE METABOLIC PANEL (07/02/2007 4:23 AM DATA WAREHOUSING MANAGER) GLOBULIN (CALC) 1.7(L) 2.4 - 3.9 g/dL INTERFACE SYSTEM ALBUMIN/GLOBULIN RATIO 1.8 1.0 - 2.3 INTERFACE SYSTEM GLUCOSE 94 70 - 110 mg/dL INTERFACE SYSTEM BUN 6(L) 7 - 17 mg/dL INTERFACE SYSTEM CREATININE 0.5(L) 0.7 - 1.2 mg/dL INTERFACE SYSTEM SODIUM 140 136 - 145 mEq/L INTERFACE SYSTEM POTASSIUM 3.4(L) 3.5 - 5.0 mEq/L INTERFACE SYSTEM CHLORIDE 112(H) 95 - 110 mEq/L INTERFACE SYSTEM CO2 22 22 - 32 mmol/l INTERFACE SYSTEM CALCIUM 7.5(L) 8.4 - 10.5 mg/dL INTERFACE SYSTEM TOTAL PROTEIN 4.7(L) 6.3 - 8.2 g/dL INTERFACE SYSTEM ALBUMIN 3.0(L) 3.5 - 5.0 g/dL INTERFACE SYSTEM ALKALINE PHOSPHATASE 64 25 - 100 U/L INTERFACE SYSTEM AST 23 8 - 33 U/L INTERFACE SYSTEM ALT 17 4 - 36 IU/L INTERFACE SYSTEM BILIRUBIN TOTAL 1.2 0.3 - 1.2 mg/dL INTERFACE SYSTEM ANION GAP 9 9 - 20 mEq/L INTERFACE SYSTEM OSMOLALITY, CALCULATED 284 275 - 295 mOsm/Kg INTERFACE SYSTEM 07/02/2007 4:23 AM DATA WAREHOUSING MANAGER us Chon Mobley MD CHEMISTRY ORDERABLES Edited INTERFACE SYSTEM Refer to clinic/hospital department * (ABNORMAL) CBC WITH DIFFERENTIAL (07/02/2007 4:23 AM DATA WAREHOUSING MANAGER) WBC 13.9(H) 4.5 - 11.0 K/ul INTERFACE SYSTEM RBC 3.59(L) 4.20 - 5.40 Mil/ul INTERFACE SYSTEM HEMOGLOBIN 8.1(L) 12.0 - 16.0 g/dL INTERFACE SYSTEM HEMATOCRIT 26.9(L) 36.0 - 46.0 % INTERFACE SYSTEM MCV 74.9(L) 84.0 - 103.0 Fl INTERFACE SYSTEM MCH 22.6(L) 27.0 - 34.0 pg INTERFACE SYSTEM MCHC 30.1 30.0 - 35.0 g/dL INTERFACE SYSTEM RDW 18.8(H) 11.0 - 14.5 % INTERFACE SYSTEM PLATELETS 279 140 - 440 K/ul INTERFACE SYSTEM MPV 10.6 8.9 - 12.8 Fl INTERFACE SYSTEM NEUTROPHILS 72.7 42.2 - 75.2 % INTERFACE SYSTEM LYMPHOCYTES 14.1(L) 24.0 - 44.0 % INTERFACE SYSTEM MONOCYTES 6.2 2.0 - 10.0 % INTERFA CE SYSTEM EOSINOPHILS 6.9 0.0 - 7.0 % INTERF NATHALIA SYSTEM BASOPHILS 0.1 0.0 - 1.0 % INTERFAC E SYSTEM NEUTROPHIL ABSOLUTE 10.1(H) 2.0 - 8.0 K/ul INTERFACE SYSTEM LYMPHOCYTE ABSOLUTE 2.0 1.2 - 4.0 K/ul INTERFACE SYSTEM MONOCYTE ABSOLUTE 0.9(H) 0.1 - 0.6 K/ul INTERFACE SYSTEM EOSINOPHIL ABSOLUTE 1.0(H) 0.0 - 0.7 K/ul INTERFACE SYSTEM BASOPHILS ABSOLUTE 0.0 0.0 - 0.2 K/ul INTERFACE SYSTEM PERIPHERAL BLOOD SMEAR REVIEW Smear Reviewed Automated Diff INTERFACE SYSTEM 07/02/2007 4:23 AM DATA WAREHOUSING MANAGER us Chon Mobley MD HEMATOLOGY ORDERABLES Edited INTERFACE SYSTEM Refer to clinic/hospital department * CARDIAC ENZYMES (07/02/2007 12:04 AM DATA WAREHOUSING MANAGER) TROPONIN I <0.1 0.0 - 1.3 ng/mL INTERFACE SYSTEM Comment: As of 06 the Troponin Reference Range has changed from 0.0-1.5 ng/ml to 0.0- 1.3 ng/ml due to a change in testing methodology. CKMB <0.2 0.0 - 5.0 ng/mL INTERFACE SYSTEM 07/02/2007 12:0 4 AM DATA WAREHOUSING MANAGER us Marissa Hardin MD CHEMISTRY ORDERABLES Edited Performing Organization Address City/[facility] de Phone Number INTERFACE SYSTEM Refer to clinic/hospital department * (ABNORMAL) VITAMIN B12 (07/02/2007 12:04 AM DATA WAREHOUSING MANAGER) VITAMIN B12 164(L) 211 - 911 pg/dL INTERFACE SYSTEM 07/02/2007 12:0 4 AM DATA WAREHOUSING MANAGER us Chon Mobley MD CHEMISTRY ORDERABLES Edited Performing Organization Address [facility] de Phone Number INTERFACE SYSTEM Refer to clinic/hospital department * FOLATE, SERUM (07/02/2007 12:04 AM DATA WAREHOUSING MANAGER) FOLATE, SERUM 12.54 >=5.38 ng/dL INTERFACE SYSTEM 07/02/2007 12:0 4 AM DATA WAREHOUSING MANAGER us Chon Mobley MD CHEMISTRY ORDERABLES Edited Performing Organization Address [facility] de Phone Number INTERFACE SYSTEM Refer to clinic/hospital department * (ABNORMAL) FERRITIN (07/02/2007 12:04 AM DATA WAREHOUSING MANAGER) FERRITIN 3.0(L) 10.0 - 291.0 ng/mL INTERFACE SYSTEM 07/02/2007 12:0 4 AM DATA WAREHOUSING MANAGER Result Luciana Mobley MD CHEMISTRY ORDERABLES Edited Performing Organization Address City/[facility] de Phone Number INTERFACE SYSTEM Refer to clinic/hospital department * IRON AND TIBC (07/02/2007 12:04 AM DATA WAREHOUSING MANAGER) TIBC 365 250 - 450 ug/dL INTERFACE SYSTEM IRON % SATURATION 45 15 - 50 % INTERFACE SYSTEM IRON 164 50 - 170 ug/dL INTERFACE SYSTEM Comment: As of Sep 11, 2005 the reference ranges have changed due to new instrumentation. 07/02/2007 12:0 4 AM DATA WAREHOUSING MANAGER Chon Mobley MD CHEMISTRY ORDERABLES Edited INTERFACE SYSTEM Refer to clinic/hospital department * XR CHEST PA OR AP (07/01/2007 7:27 PM DATA WAREHOUSING MANAGER) Anatomical Region Laterality Modality Chest Other 07/01/2007 7:27 PM DATA WAREHOUSING MANAGER Narrative 07/01/2007 7:27 PM DATA WAREHOUSING MANAGER Exam: Chest - PortableDate/Time of Exam: Jul 01, 2007 6:08:12 PMHistory: Chest pain. Findings: No comparison. Surgical clips are present in the epigastrium. There is a large amount offood in the stomach. Lungs are clear. The cardiac silhouette and pulmonary vasculature arenormal. Impression: No active disease. - Dictated By: Susan Liu M.D. Electronically Signed By: Susan Liu M.D. Date Signed: 07/02/07 Procedure Note 06/24/2009 Exam: Chest - PortableDate/Time of Exam: Jul 01, 2007 6:08:12 PMHistory: Chest pain. Findings: No comparison. Surgical clips are present in the epigastrium. There is alarge amount offood in the stomach. Lungs are clear. The cardiac silhouette and pulmonary vasculaturearenormal. Impression: No active disease. - Dictated By: Susan Liu M.D. Electronically Signed By: Susan Liu M.D. Date Signed: 07/02/07 us Marissa Hardin MD DIAGNOSTIC IMAGING ORDERABLE S Final Result * BETA HCG QUANTITATIVE, BLOOD (07/01/2007 6:11 PM DATA WAREHOUSING MANAGER) CHORIONIC GONADOTROPIN, TOTAL <2.0 0.0 - 10.0 mlU/ML INTERFACE SYSTEM Comment: Total HCG levels between 10 mIU/mL and 25 mIU/mL may be indicative of early but need to be correlated with other clinical findings. HCG ranges during normal , as reported by the loader technician, are summarized as follows: Gestational Age Expected hCG Values (mIU/ml) 0.2-1 Weeks 5 - 50 1-2 Weeks 50 - 500 2-3 Weeks 100 - 5,000 3-4 Weeks 1,000 - 50,000 5-6 Weeks 10,000 - 100,000 6-8 Weeks 15,000 - 200,000 2-3 Months 10,000 - 100,000 07/01/2007 6:11 PM DATA WAREHOUSING MANAGER Chon Mobley MD CHEMISTRY ORDERABLES Edited Performing Organization Address [facility] de Phone Number INTERFACE SYSTEM Refer to clinic/hospital department * TSH (07/01/2007 6:11 PM DATA WAREHOUSING MANAGER) TSH 1.770 0.350 - 5.500 uIU/ml INTERFACE SYSTEM 07/01/2007 6:11 PM DATA WAREHOUSING MANAGER Chon Mobley MD CHEMISTRY ORDERABLES Edited Performing Organization Address [facility] Phone Number INTERFACE SYSTEM Refer to clinic/hospital department * (ABNORMAL) CBC WITH DIFFERENTIAL (07/01/2007 6:11 PM DATA WAREHOUSING MANAGER) WBC 6.0 4.5 - 11.0 K/ul INTERFACE SYSTEM RBC 3.17(L) 4.20 - 5.40 Mil/ul INTERFACE SYSTEM HEMOGLOBIN 6.2(L) 12.0 - 16.0 g/dL INTERFACE SYSTEM HEMATOCRIT 22.1(L) 36.0 - 46.0 % INTERFACE SYSTEM MCV 69.7(L) 84.0 - 103.0 Fl INTERFACE SYSTEM MCH 19.6(L) 27.0 - 34.0 pg INTERFACE SYSTEM MCHC 28.1(L) 30.0 - 35.0 g/dL INTERFACE SYSTEM RDW 16.9(H) 11.0 - 14.5 % INTERFACE SYSTEM PLATELETS 315 140 - 440 K/ul INTERFACE SYSTEM MPV 11.1 8.9 - 12.8 Fl INTERFACE SYSTEM NEUTROPHILS 47.5 42.2 - 75.2 % INTERFACE SYSTEM LYMPHOCYTES 26.6 24.0 - 44.0 % INTERFACE SYSTEM MONOCYTES 12.2(H) 2.0 - 10.0 % INTERFA CE SYSTEM EOSINOPHILS 13.5(H) 0.0 - 7.0 % INTERF NATHALIA SYSTEM BASOPHILS 0.2 0.0 - 1.0 % INTERFAC E SYSTEM NEUTROPHIL ABSOLUTE 2.8 2.0 - 8.0 K/ul INTERFACE SYSTEM LYMPHOCYTE ABSOLUTE 1.6 1.2 - 4.0 K/ul INTERFACE SYSTEM MONOCYTE ABSOLUTE 0.7(H) 0.1 - 0.6 K/ul INTERFACE SYSTEM EOSINOPHIL ABSOLUTE 0.8(H) 0.0 - 0.7 K/ul INTERFACE SYSTEM BASOPHILS ABSOLUTE 0.0 0.0 - 0.2 K/ul INTERFACE SYSTEM PERIPHERAL BLOOD SMEAR REVIEW Automated Diff Automated Diff INTERFACE SYSTEM 07/01/2007 6:11 PM DATA WAREHOUSING MANAGER us Marissa Hardin MD HEMATOLOGY ORDERABLES Edited Performing Organization Address City/State/[facility] Co de Phone Number INTERFACE SYSTEM Refer to clinic/hospital department * PTT (07/01/2007 6:11 PM DATA WAREHOUSING MANAGER) PTT 23.1 21.6 - 35.6 Secs INTERFACE SYSTEM Comment: Therapeutic Range: Hi-level PE/DVT heparin protocol 80.1 -95.0 sec Lo-level PE/DVT heparin protocol 67.1 - 80.0 sec Cardiac Heparin Protocol 67.1 - 85.0 sec Neuro Heparin Protocol 67.1 - 80.0 sec As of 07/09/2006 note change in APTT Normal Range. 07/01/2007 6:11 PM DATA WAREHOUSING MANAGER us Marissa Hardin MD HEMATOLOGY ORDERABLES Edited INTERFACE SYSTEM Refer to clinic/hospital department * PROTIME-INR (07/01/2007 6:11 PM DATA WAREHOUSING MANAGER) PROTIME 14.0 13.0 - 15.7 Secs INTERFACE SYSTEM Comment: As of 06 note change in normal range. INR 1.0 INTERFACE SYSTEM Comment: Expected Values for INR: DVT/PE Goal INR 2.5; range 2.0 - 3.0 Valve Replacement Tissue Goal INR 2.5; range 2.0 - 3.0 Mechanical Goal INR 3.0; range 2.5 - 3.5 POST-NC Goal INR 2.5; range 2.0 - 3.0 or Goal 3.0; range 2.5 - 3.5 Atrial Fibrillation Goal INR 2.5; range 2.0 - 3.0 Ischemic Stroke Goal INR 2.5; range 2.0 - 3.0 For additional information see Guidelines for Anticoagulation available from the pharmacy Aleksandra Otero, Pharm D. 07/01/2007 6:11 PM DATA WAREHOUSING MANAGER us Marissa Hardin MD HEMATOLOGY ORDERABLES Edited Performing Organization Address [facility] Phone Number INTERFACE SYSTEM Refer to clinic/hospital department * (ABNORMAL) BASIC METABOLIC PANEL (07/01/2007 6:11 PM DATA WAREHOUSING MANAGER) GLUCOSE 98 70 - 110 mg/dL INTERFACE SYSTEM BUN 12 7 - 17 mg/dL INTERFACE SYSTEM CREATININE 0.6(L) 0.7 - 1.2 mg/dL INTERFACE SYSTEM SODIUM 140 136 - 145 mEq/L INTERFACE SYSTEM POTASSIUM 3.6 3.5 - 5.0 mEq/L INTERFACE SYSTEM CHLORIDE 110 95 - 110 mEq/L INTERFACE SYSTEM CO2 25 22 - 32 mmol/l INTERFACE SYSTEM CALCIUM 8.3(L) 8.4 - 10.5 mg/dL INTERFACE SYSTEM ANION GAP 9 9 - 20 mEq/L INTERFACE SYSTEM OSMOLALITY, CALCULATED 287 275 - 295 mOsm/Kg INTERFACE SYSTEM 07/01/2007 6:11 PM DATA WAREHOUSING MANAGER us Marissa Hardin MD CHEMISTRY ORDERABLES Edited Performing Organization Address [facility]/ZIP Co de Phone Number INTERFACE SYSTEM Refer to clinic/hospital department * CARDIAC ENZYMES (07/01/2007 6:11 PM DATA WAREHOUSING MANAGER) TROPONIN I <0.1 0.0 - 1.3 ng/mL INTERFACE SYSTEM Comment: As of 06 the Troponin Reference Range has changed from 0.0-1.5 ng/ml to 0.0- 1.3 ng/ml due to a change in testing methodology. CKMB <0.2 0.0 - 5.0 ng/mL INTERFACE SYSTEM 07/01/2007 6:11 PM DATA WAREHOUSING MANAGER us Marissa Hardin MD CHEMISTRY ORDERABLES Edited Performing Organization Address City/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
--- OUTSIDE RECORDS SUMMARY | 2025-02-08 22:55 | XMS_ITS | Encounter Summary ---
Author Organization [facility] Address [address] [place] [address] Care Team Providers Care Retail Service Technician Name Role Phone Non-Staff, Physician Primary Care Provider Unava ilable Encounter Details Date Type Department Care Team (Late st Contact Info) Description 07/30/2007 Emergency [facility] Emergency Department [address] [place] [address] Ed, Physician NO ADDRESS ON FILE Megan Aquino MD [address] [place] [address] Other Emphysema (CMS/HCC); Fall from Other Slipping, Tripping, or Stumbling; Place of Occurrence, Home Social History Tobacco Use Types Packs/Day Years Used Date Smoking Tobacco: Never Assessed Comments Unknown Sex and Gender Information Value Date Recorded Sex Assigned at Not on file Legal Sex Female 6:52 AM SKY CAP Gender Identity Not on file Sexual Orientation Not on file documented as of this encounter Plan of Treatment Not on file documented as of this encounter Visit Diagnoses Diagnosis Other emphysema (CMS/HCC) Other emphysema Fall from other slipping, tripping, or stumbling Place of occurrence, home documented in this encounter Care Teams Retail Service Technician Relationship Specialty Start Date End Date Non-Staff, Physician NO ADDRESS ON FILE PCP - General 07/02/07 documented as of this encounter
--- OUTSIDE RECORDS SUMMARY | 2025-02-08 22:55 | XMS_ITS | Encounter Summary ---
Author Organization [employer] [facility] Address [address] [place] [address] Care Team Providers Care Corporate Claims Examiner Name Role Phone Non-Staff, Physician Primary Care Provider Unava ilable Encounter Details Date Type Department Care Team (Late st Contact Info) Description 11/13/2007 Outpatient Historical [facility] [address] [place] [address] AMBULANCE, [facility] AMBULANCE, [facility] Social History Tobacco Use Types Packs/Day Years Used Date Smoking Tobacco: Never Assessed Comments Unknown Sex and Gender Information Value Date Recorded Sex Assigned at Not on file Legal Sex Female 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
[2025-02-08 23:53] VITALS: BP 130/76; PULSE 83; O2SAT 100
--- NOTE | 2025-02-08 23:54 | ED_ITS ---
HPI - Headache General: Chief Complaint: Headache Stated Complaint: HEADACHE Time Seen by Provider: 02/08/25 22:50 History of Present Illness: 59-year-old female presents with chronic headache that has been going on since July. She recently had an MRI done last month that she reports that they found lesions on however chart review indicates that it was negative for any acute findings or lesions. She presents today because she just has a headache and reports that she is having some memory loss that is also been evaluated that she is post follow-up with a neurologist. Associated symptoms: Deny fever(s), nausea or vomiting Related Data Home Medications ?Medication ?Instructions ?Recorded ?Confirmed nitroglycerin 0.4 mg sublingual 0.4 mg sublingual Q5M PRN Chest 07/16/23 07/25/24 tablet (Nitrostat) Pain tiotropium 2.5 mcg-olodaterol 2.5 2 puff inhalation DA IRVIN 05/16/24 07/25/24 mcg/actuation mist for inhalation (Stiolto Respimat) umeclidinium 62.5 mcg-vilanterol 1 ea inhalation DAILY 05/16/24 07/25/24 25 mcg/actuation powdr for inhalation (Anoro Ellipta) cazftpm-hjnqukkoliewl-patwsxqo 250 2 tab PO Q6H PRN Pa in 07/07/24 07/25/24 mg-250 mg-65 mg tablet (Excedrin Extra Strength) polyethylene glycol 3350 17 gram 17 g PO BID PRN const ipation 07/07/24 07/25/24 oral powder packet (Miralax) Previous Rx's ?Medication ?Instructions ?Recorded tizanidine 2 mg tablet 2 mg PO Q6H PRN Spasms 14 da ys #30 05/18/24 tabs pantoprazole 40 mg tablet,delayed 40 mg PO BID 30 days #60 tabs 07/25/24 release (Protonix) Allergies Allergy/AdvReac Type Severity Reaction Status Date / Time diphenhydramine (From Allergy Unknown Verified 07/25/24 12:48 Benadryl) hydromorphone (From Dilaudid) Allergy ADR-Vomitin Verified 07/25/24 12:48 g ibuprofen (From Motrin) Allergy ALGY-Anaphy Verified 07/25/24 12:48 laxis Penicillins Allergy ALGY-Anaphy Verified 07/25/24 12:48 laxis tramadol Allergy Unknown Verified 07/25/24 12:48 Review of Systems Const: Denies: fever(s) or chills Resp: Denies: dyspnea or productive cough GI: Denies: abdominal pain, nausea or vomiting Neuro: Reports: headache(s) PFSH ED PFSH: Medical History Small bowel obstruction Microcytic anemia Leukocytosis Dyslipidemia Nondisplaced fracture of fifth right metatarsal bone Fracture of fourth metatarsal bone of right foot SOB (shortness of breath) Hx of COPD, 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,quit in 2000 Metatarsal bone fracture Dysphagia Weight loss Peripheral neuropathy Chest pain Abnormal EKG Atherosclerotic heart disease of [place] coronary artery with other forms of angina pectoris GERD (gastroesophageal reflux disease) Benign essential hypertension with target blood pressure below 140/90 Bradycardia AV block, 2nd degree Recurrent vomiting HTN (hypertension) Nausea and vomiting Elevated blood pressure reading Unstable angina Chest pain Palpitations Chest pain Emphysema of lung Quit in 2019 Chronic migraine without aura, intractable, with status migrainosus Surgical History Status post colon resection H/O colonoscopy History of surgery ULCERS AND PART OF STOMACH REMOVED History of colon resection History of hysterectomy History of appendectomy History of cholecystectomy Family History Mother CAD (coronary artery disease), Onset Age: 50 Cancer Lung disease Stroke Denies family history of Diabetes Clotting disorder Dementia Chronic kidney disease (CKD) Suicide Anesthesia complication Bleeding disorder Social History Smoking and tobacco/nicotine status: unknown if used tobacco/nicotine Alcohol intake: former Substance/Drug Use: never Physical Exam Const: GENERAL APPEARANCE: anxious and appears older than stated age Resp: COMMON NORMALS: normal respiratory effort and clear to auscultation bilaterally AUSCULTATION: clear to auscultation bilaterally Cardio: COMMON NORMALS: regular rate and regular rhythm RATE: regular rate RHYTHM: regular rhythm Neuro: COMMON NORMALS: moves all extremities, no focal motor deficits and no sensory deficits noted Psych: APPEARANCE: Yes grossly normal MOOD & AFFECT: Yes depressed mood Course Vital Signs: Vital signs: Vital Signs Temperature 98.2 F 02/08/25 22:48 Pulse Rate 79 02/09/25 00:37 Respiratory Rate 20 H 02/08/25 22:48 Blood Pressure 119/65 02/09/25 00:37 Pulse Oximetry 99 02/09/25 00:37 Oxygen Delivery Me thod Room Air 02/09/25 00:37 MDM - Headache Medical Decision Making Patient with a history of chronic headaches. I did review that recent MRI and that shows no acute significant findings. She is trying to follow-up with a neurologist and I encouraged her to continue to try to follow-up for further evaluation and recommendations. She does feel significantly better following treatment here in the ER. . She is stable and discharged home No radiology studies performed this visit Discharge Plan Discharge Patient Disposition: Home Clinical Impression: Chronic migraine without aura, intractable, with status migrainosus Condition: Stable Prescriptions: No Action pantoprazole [Protonix] 40 mg tablet,delayed release (DR/EC) 40 mg PO BID 30 Days Qty: 60 1RF Anoro Ellipta 62.5-25 mcg/actuation blister with device 1 ea INHALATION DAILY Stiolto Respimat 2.5-2.5 mcg/actuation mist 2 puff INHALATION DAILY tizanidine 2 mg tablet 2 mg PO Q6H PRN (Reason: Spasms) 14 Days Qty: 30 1RF nitroglycerin [Nitrostat] 0.4 mg Tablet, Sublingual 0.4 mg SUBLINGUAL Q5M PRN (Reason: Chest Pain) Rx Instructions: do not exceed 3 doses per episode Excedrin Extra Strength 250-250-65 mg Tablet 2 tab PO Q6H PRN (Reason: Pain) polyethylene glycol 3350 [Miralax] 17 gram powder in packet 17 g PO BID PRN (Reason: constipation ) Discharge Orders: Discharge ED (Routine); Ordered 02/09/25 Ordered By: Diego iHnds Referrals: Braden Owen NP [Primary Care Provider, Nurse Practitioner] Discharge Diet: Usual diet Discharge Activity: Increase activity as tolerated Patient Instructions: Opioid Safety, Pain Management, Patient Portal & Falguni Instructions Activity Restrictions/Additional Instructions: Please continue to follow-up closely with your primary care provider and try to arrange a follow-up with a neurologist. Be sure you are drinking plenty of fluids. Print Language: Andorran Coding Level of Care Code ED Glass Beveller for Storm Wolfe
[2025-02-09] MEDS: ketamine 100 mg/mL Inj 5 mL 12 MG IV
[2025-02-09 00:37] VITALS: BP 119/65; PULSE 79; O2SAT 99
[2025-02-09 01:59] VITALS: BP 108/69; PULSE 91; O2SAT 99
== END 2025-02-09 02:01 | disposition home or self-care (01) ==
PROVIDERS: Emergency Provider Student in an Organized Health Care Education/Training Program; PCP Nurse Practitioner Family
DX: G43.911 Migraine, unspecified, intractable, with status migrainosus (principal); E78.5 Hyperlipidemia, unspecified; I10 Essential (primary) hypertension; Z87.891 Personal history of nicotine dependence; Z79.899 Other long term (current) drug therapy; Z79.82 Long term (current) use of aspirin; Z88.0 Allergy status to penicillin; Z88.5 Allergy status to narcotic agent; Z88.8 Allergy status to other drugs, medicaments and biological substances
CPT/HCPCS: 96361; 96374; 96375; 99284; J1100; J3490; J7040

== ENCOUNTER 2025-05-01 15:53 | Outpatient (CLI) | payer MEDICAID, SELFPAY ==
--- NOTE | 2025-05-01 16:00 | XRR_ITS ---
PROCEDURE INFORMATION: Exam: XR Chest Exam date and time: 05/01/2025 4:05 PM Age: 60 years old Clinical indication: Shortness of breath; PT states she was exposed to black mold & is having chest pain on both sides x few months. HX of copd TECHNIQUE: Imaging protocol: Radiologic exam of the chest. Views: 2 views. COMPARISON: CR XR chest 1V portable [id number] 07/12/2024 4:33 PM FINDINGS: Lungs: Hyperinflation with hyper lucency of the apices consistent with emphysematous change. Pleural spaces: No pleural effusion. No pneumothorax. Heart/Mediastinum: No cardiomegaly. Bones/joints: Unremarkable. Intraperitoneal space: Surgical clips of the upper abdomen. XR/XR chest 2V* [id number] IMPRESSION: 1. Query emphysema. 2. No acute cardiopulmonary abnormality.
[2025-05-01 16:23] LABS: Hematocrit 35.2 % (36-47); Hemoglobin 10.90 g/dL (11.27-16.99); Mean Corpuscular HGB Conc 31.0 g/dL (30-55); Mean Corpuscular Hemoglobin 24.7 pg (27-33); Mean Corpuscular Volume 79.6 fl (85-98); Nucleated Red Blood Cells % 0 %; Platelet Count 237 10^3/cmm (157-399); Red Blood Count 4.42 10^6/uL (3.85-5.65); White Blood Count 5.41 10^3/uL (3.29-11.43)
[2025-05-01 17:35] LABS: Alanine Aminotransferase 10 U/L (0-33); Albumin Level 4.4 g/dL (3.5-5.2); Alkaline Phosphatase 85 U/L (35-105); Anion Gap 15.0 (5-19); Aspartate Amino Transferase 16 U/L (0-32); Blood Urea Nitrogen 24 mg/dL (8-23); Calcium 9.0 mg/dL (8.5-10.5); Carbon Dioxide 23 mmol/L (22-29); Chloride 108 mmol/L (98-107); Cholesterol 229 mg/dL (0-200); Globulin 2.7 g/dL (1.3-4.6); Glucose 119 mg/dL (65-115); HDL Cholesterol 81 mg/dL (60-100); Osmolality Calculated 299 mOsm/kg (285-295); Potassium 4.0 mmol/L (3.5-5.1); Sodium 142 mmol/L (136-145); Thyroid Stimulating Hormone 3.91 uIU/mL (0.27-4.20); Total Protein 7.1 g/dL (6.6-8.7); Triglycerides 97 mg/dL (0-150)
== END 2025-05-01 15:54 | disposition home or self-care (01) ==
PROVIDERS: PCP Nurse Practitioner Family; Visit Provider Family Medicine
DX: Z01.89 Encounter for other specified special examinations (principal); J43.9 Emphysema, unspecified
CPT/HCPCS: 36415; 71046; 80053; 80061; 82306; 84443; 85025

== ENCOUNTER 2025-05-03 15:25 | Observation (INO) | payer MEDICAID, SELFPAY ==
[2025-05-03 15:26] VITALS: BP 149/105; PULSE 108; RESP 18; TEMP 36.6; O2SAT 100; BMI 17.4
--- NOTE | 2025-05-03 15:29 | XRR_ITS ---
PROCEDURE INFORMATION: Exam: XR Chest Exam date and time: 05/03/2025 3:32 PM Age: 60 years old Clinical indication: Pain; Angina pectoris; Additional info: Chest pain TECHNIQUE: Imaging protocol: Radiologic exam of the chest. Views: 1 view. COMPARISON: CR XR chest 2V* [id number] 05/01/2025 4:05 PM FINDINGS: Lungs: Unremarkable. No consolidation. Pleural spaces: Unremarkable. No pleural effusion. No pneumothorax. Heart/Mediastinum: Unremarkable. No cardiomegaly. Bones/joints: Unremarkable. XR/XR chest 1V portable [id number] IMPRESSION: No acute cardiopulmonary process.
--- NOTE | 2025-05-03 15:30 | ECG_ITS ---
[facility]: 2025[facility]03 Pat Name: Radha Maguire Department: Room: Gender: Female Director Of Rehabilitation: : 1965 Requested By: Narendra Ramírez Order Number: [id number] Emily MD: Shar Lou M.D. Measurements Intervals [place] Rate: 110 P: 81 WA: 123 QRS: 76 QRSD: 82 T: 70 QT: 304 QTc: 412 Interpretive Statements SINUS TACHYCARDIA MODERATE ST DEPRESSION [0.05+ mV ST DEPRESSION] Compared to ECG 07/07/2024 20:07:24 ST (T wave) deviation now present Sinus rhythm no longer present Electronically Signed On 05-04-2025 08:36:05 CDT by Shar Lou M.D. [email or web address]
--- OUTSIDE RECORDS SUMMARY | 2025-05-03 15:31 | XMS_ITS | Encounter Summary ---
Author Organization [employer] [facility] Address [address] [place] [address] Care Team Providers Care Coding Consultant Name Role Phone Non-Staff, Physician Primary Care Provider Unava ilable Encounter Details Date Type Department Care Team (Late st Contact Info) Description 07/30/[address] [facility] [address] [place] [address] AMBULANCE, [facility] Chronic Obstructive Asthma, Unspecified (CMS/HCC); Personal History of Allergy to Penicillin; Personal History of Allergy to Analgesic Agent Social History Tobacco Use Types Packs/Day Years Used Date Smoking Tobacco: Never Assessed Comments Unknown Sex and Gender Information Value Date Recorded Sex Assigned at Not on file Legal Sex Female 6:52 AM SAMPLE WASHER Gender Identity Not on file Sexual Orientation Not on file documented as of this encounter Plan of Treatment Not on file documented as of this encounter Visit Diagnoses Diagnosis Chronic obstructive asthma, unspecified (CMS/HCC) Chronic obstructive asthma, unspecified Personal history of allergy to penicillin Personal history of allergy to analgesic agent documented in this encounter Care Teams Coding Consultant Relationship Specialty Start Date End Date Non-Staff, Physician NO ADDRESS ON FILE PCP - General 07/02/07 documented as of this encounter
--- OUTSIDE RECORDS SUMMARY | 2025-05-03 15:31 | XMS_ITS | Encounter Summary ---
Author Organization [facility] Address [address] [place] [address] Care Team Providers Care Wrapper Opener Name Role Phone Non-Staff, Physician Primary Care Provider Unava ilable Encounter Details Date Type Department Care Team (Late st Contact Info) Description 07/06/2007 Outpatient Historical [facility] [address] [place] [address] AMBULANCE, [facility] Social History Tobacco Use Types Packs/Day Years Used Date Smoking Tobacco: Never Assessed Comments Unknown Sex and Gender Information Value Date Recorded Sex Assigned at Not on file Legal Sex Female 6:52 AM BRAIN SURGEON Gender Identity Not on file Sexual Orientation Not on file documented as of this encounter Plan of Treatment Not on file documented as of this encounter Visit Diagnoses Not on filedocumented in this encounter Care Teams Wrapper Opener Relationship Specialty Start Date End Date Non-Staff, Physician NO ADDRESS ON FILE PCP - General 07/02/07 documented as of this encounter
--- OUTSIDE RECORDS SUMMARY | 2025-05-03 15:31 | XMS_ITS | Encounter Summary ---
Author Organization [employer] Address [address] [place] [address] Care Team Providers Care Property Manager Name Role Phone Non-Staff, Physician Primary Care Provider Unava ilable Encounter Details Date Type Department Care Team (Late st Contact Info) Description 07/17/2007 Outpatient Historical [facility] [address] [place] [address] AMBULANCE, [facility] Social History Tobacco Use Types Packs/Day Years Used Date Smoking Tobacco: Never Assessed Comments Unknown Sex and Gender Information Value Date Recorded Sex Assigned at Not on file Legal Sex Female 6:52 AM SKIN PILER Gender Identity Not on file Sexual Orientation Not on file documented as of this encounter Plan of Treatment Not on file documented as of this encounter Visit Diagnoses Not on filedocumented in this encounter Care Teams Property Manager Relationship Specialty Start Date End Date Non-Staff, Physician NO ADDRESS ON FILE PCP - General 07/02/07 documented as of this encounter
--- OUTSIDE RECORDS SUMMARY | 2025-05-03 15:31 | XMS_ITS | Encounter Summary ---
Author Organization [facility] Address [address] [place] [address] Care Team Providers Care Land Development Project Manager Name Role Phone Non-Staff, Physician Primary Care Provider Unava ilable Encounter Details Date Type Department Care Team (Late st Contact Info) Description 08/14/2007 Outpatient [facility] [address] 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
--- OUTSIDE RECORDS SUMMARY | 2025-05-03 15:31 | XMS_ITS | Clinical Summary ---
Author Organization [facility] Address [address] [facility] Attn: [place] [address] Care Team Providers Care Informatics Physician Liaison Name Role Phone Non-Staff, Physician Primary Care Provider Unava ilable Social History Tobacco Use Types Packs/Day Years Used Date Smoking Tobacco: Never Assessed Comments Unknown Sex and Gender Information Value Date Recorded Sex Assigned at Not on file Legal Sex Female 12:02 PM MEDICAL TECHNOLOGIST PRN Gender Identity Not on file Sexual Orientation Not on file Plan of Treatment Upcoming Encounters Date Type Department Care Team (Late st Contact Info) Description 09/13/2025 12:00 PM MEDICAL TECHNOLOGIST PRN Office Visit [facility] Neurology - [place] [address] [place] [address] Yevgeniy Allen MD [address] [place] [address] Health Maintenance Due Date Last Done Comments DTAP/TDAP/TD VACCINES (1 - Tdap) 02/29/1984 HPV/Cotest (21-29) 1986 CERVICAL CANCER SCREENING 1995 HPV/Cotest (30-65) 1995 PAP SMEAR 1995 BREAST CANCER SCREENING 2005 COLORECTAL SCREENING 2010 Colorectal Cancer Screening 2010 FIT-DNA Q 3 years 2010 FIT/FOBT Q 1 year 2010 Flex Sig/CT Colonography Q 5 years 2010 ZOSTER VACCINE (1 of 2) 2015 INFLUENZA VACCINE (#1) 2025 RSV VACCINE (60+ or ) (1 - 1-dose 75+ series) 02/29/2040 HEPATITIS B VACCINES Aged Out No long er eligible based on patient's age to complete this topic Insurance MEDICAID [place] Care Teams Informatics Physician Liaison Relationship Specialty Start Date End Date Non-Staff, Physician NO ADDRESS ON FILE PCP - General 07/02/07
--- OUTSIDE RECORDS SUMMARY | 2025-05-03 15:31 | XMS_ITS | Encounter Summary ---
Author Organization [facility] Address [address] [place] [address] Care Team Providers Care Surveillance System Monitor Name Role Phone Non-Staff, Physician Primary Care Provider Unava ilable Encounter Details Date Type Department Care Team (Late st Contact Info) Description 07/18/2007 Emergency [facility] Emergency Department [address] [place] [address] Ed, Physician NO ADDRESS ON FILE Justen Lipscomb MD NO ADDRESS ON FILE Social History Tobacco Use Types Packs/Day Years Used Date Smoking Tobacco: Never Assessed Comments Unknown Sex and Gender Information Value Date Recorded Sex Assigned at Not on file Legal Sex Female 6:52 AM TUBE MAN Gender Identity Not on file Sexual Orientation Not on file documented as of this encounter Plan of Treatment Not on file documented as of this encounter Procedures Procedure Name Priority Date/Time Associated Diagnosis Comments CBC WITH DIFFERENTIAL Routine 07/18/2007 3:32 PM TUBE MAN COMPREHENSIVE METABOLIC PANEL Routine 07/18/2007 3:32 PM TUBE MAN documented in this encounter Results * (ABNORMAL) COMPREHENSIVE METABOLIC PANEL (07/18/2007 3:32 PM TUBE MAN) GLUCOSE 94 70 - 110 mg/dL INTERFACE [...] 295 mOsm/Kg INTERFACE SYSTEM 07/18/2007 3:32 PM TUBE MAN us Physician Sj Ed CHEMISTRY ORDERABLES Edited INTERFACE SYSTEM Refer to clinic/hospital department * (ABNORMAL) CBC WITH DIFFERENTIAL (07/18/2007 3:32 PM TUBE MAN) WBC 6.5 4.5 - 11.0 K/ul INTERFACE [...] Automated Diff INTERFACE SYSTEM 07/18/2007 3:32 PM TUBE MAN us Physician Sj Ed HEMATOLOGY ORDERABLES Edited INTERFACE SYSTEM Refer to clinic/hospital department documented in this encounter Visit Diagnoses Not on filedocumented in this encounter Care Teams Surveillance System Monitor Relationship Specialty Start Date End Date Non-Staff, Physician NO ADDRESS ON FILE PCP - General 07/02/07 documented as of this encounter
--- OUTSIDE RECORDS SUMMARY | 2025-05-03 15:31 | XMS_ITS | Encounter Summary ---
Author Organization [facility] Address [address] [place] [address] Care Team Providers Care Human Resources Benefits Assistant Name Role Phone Non-Staff, Physician Primary Care Provider Unava ilable Encounter Details Date Type Department Care Team (Late st Contact Info) Description 07/17/2007 Emergency [facility] Emergency Department [address] [place] [address] Ed, Physician NO ADDRESS ON FILE Renetta Abreu MD [address] [place] [address] Social History Tobacco Use Types Packs/Day Years Used Date Smoking Tobacco: Never Assessed Comments Unknown Sex and Gender Information Value Date Recorded Sex Assigned at Not on file Legal Sex Female 6:52 AM ASSEMBLER DC FIELD RING Gender Identity Not on file Sexual Orientation Not on file documented as of this encounter Plan of Treatment Not on file documented as of this encounter Procedures Procedure Name Priority Date/Time Associated Diagnosis Comments URINALYSIS MICROSCOPY ONLY Routine 07/17/2007 5:15 PM ASSEMBLER DC FIELD RING CBC WITH DIFFERENTIAL Routine 07/17/2007 5:15 PM ASSEMBLER DC FIELD RING URINALYSIS W/REFLEX MICROSCOPIC Routine 07/17/2007 5:15 PM ASSEMBLER DC FIELD RING COMPREHENSIVE METABOLIC PANEL Routine 07/17/2007 5:15 PM ASSEMBLER DC FIELD RING HCG QUANTITATIVE, BLOOD Routine 07/17/2007 5:00 PM ASSEMBLER DC FIELD RING documented in this encounter Results * (ABNORMAL) URINALYSIS MICROSCOPY ONLY (07/17/2007 5:15 PM ASSEMBLER DC FIELD RING) WBC URINE 3-5(A) 0 - 2 INTERFACE SYSTEM RBC UA 0-2 0 - 2 INTERFACE SYSTEM HYALINE CAST None Seen 0 - 2 INTERFA CE SYSTEM BACTERIA UA Many(A) None Seen INTERFAC E SYSTEM 07/17/2007 5:15 PM ASSEMBLER DC FIELD RING Renetta Abreu MD URINE ORDERABLES Edited Performing Organization Address [facility] Phone Number INTERFACE SYSTEM Refer to clinic/hospital department * (ABNORMAL) URINALYSIS (07/17/2007 5:15 PM ASSEMBLER DC FIELD RING) COLOR UA Yellow Straw INTERFACE SYSTEM CLARITY [...] Yes(A) No INTERFACE SYSTEM 07/17/2007 5:15 PM ASSEMBLER DC FIELD RING Result [facility] Renetta Abreu MD URINE ORDERABLES Edited Performing Organization Address [facility] Phone Number INTERFACE SYSTEM Refer to clinic/hospital department * (ABNORMAL) COMPREHENSIVE METABOLIC PANEL (07/17/2007 5:15 PM ASSEMBLER DC FIELD RING) GLOBULIN (CALC) 2.6 2.4 - 3.9 g/dL [...] 295 mOsm/Kg INTERFACE SYSTEM 07/17/2007 5:15 PM ASSEMBLER DC FIELD RING Renetta Abreu MD CHEMISTRY ORDERABLES Edited INTERFACE SYSTEM Refer to clinic/hospital department * (ABNORMAL) CBC WITH DIFFERENTIAL (07/17/2007 5:15 PM ASSEMBLER DC FIELD RING) WBC 6.1 4.5 - 11.0 K/ul INTERFACE [...] Automated Diff INTERFACE SYSTEM 07/17/2007 5:15 PM ASSEMBLER DC FIELD RING Renetta Abreu MD HEMATOLOGY ORDERABLES Edited Performing Organization Address City/[facility] Phone Number INTERFACE SYSTEM Refer to clinic/hospital department * BETA HCG QUANTITATIVE, BLOOD (07/17/2007 5:00 PM ASSEMBLER DC FIELD RING) CHORIONIC GONADOTROPIN, TOTAL <2.0 0.0 - 10.0 mlU/ML INTERFACE SYSTEM 07/17/2007 5:00 PM ASSEMBLER DC FIELD RING us Renetta Abreu MD CHEMISTRY ORDERABLES Edited Performing Organization Address [facility] Phone Number INTERFACE SYSTEM Refer to clinic/hospital department documented in this encounter Visit Diagnoses Not on filedocumented in this encounter Care Teams Human Resources Benefits Assistant Relationship Specialty Start Date End Date Non-Staff, Physician NO ADDRESS ON FILE PCP - General 07/02/07 documented as of this encounter
--- OUTSIDE RECORDS SUMMARY | 2025-05-03 15:31 | XMS_ITS | Encounter Summary ---
Author Organization [facility] Address [address] [place] [address] Care Team Providers Care Motion Picture Operator Name Role Phone Non-Staff, Physician Primary Care Provider Unava ilable Encounter Details Date Type Department Care Team (Late st Contact Info) Description 07/30/2007 Emergency [facility] Emergency Department [address] [place] [address] Ed, Physician NO ADDRESS ON FILE Megan Aquino MD [address] [place] [address] Other Emphysema (CMS/HCC); Fall from Other Slipping, Tripping, or Stumbling; Place of Occurrence, Home Social History Tobacco Use Types Packs/Day Years Used Date Smoking Tobacco: Never Assessed Comments Unknown Sex and Gender Information Value Date Recorded Sex Assigned at Not on file Legal Sex Female 6:52 AM ACCOUNT REVIEW SPECIALIST Gender Identity Not on file Sexual Orientation Not on file documented as of this encounter Plan of Treatment Not on file documented as of this encounter Visit Diagnoses Diagnosis Other emphysema Fall from other slipping, tripping, or stumbling Place of occurrence, home documented in this encounter Care Teams Motion Picture Operator Relationship Specialty Start Date End Date Non-Staff, Physician NO ADDRESS ON FILE PCP - General 07/02/07 documented as of this encounter
--- OUTSIDE RECORDS SUMMARY | 2025-05-03 15:31 | XMS_ITS | Encounter Summary ---
Author Organization [employer] Address [address] [place] [address] Care Team Providers Care Glazier Supervisor Name Role Phone Non-Staff, Physician Primary Care Provider Unava ilable Encounter Details Date Type Department Care Team (Late st Contact Info) Description 07/01/2007 Outpatient Historical [facility] Ed, Physician NO ADDRESS ON FILE Marissa Hardin MD NO ADDRESS ON FILE Chon Mobley MD [address] [place] [address] Namita Grant MD [address] [place] [address] Luis Alfredo Slade MD [address] [place] [address] Amado Hope MD NO ADDRESS ON FILE Mal Baer, DO [address] [place] [address] Adjustment Disorder with Depressed Mood; [...] on file Legal Sex Female 6:52 AM ASSISTANT PLANT CONTROL OPERATOR Gender Identity Not on file Sexual Orientation Not on file documented as of this encounter Plan of Treatment Not on file documented as of this encounter Procedures Procedure Name Priority Date/Time Associated Diagnosis Comments CBC WITH DIFFERENTIAL Routine 07/09/2007 9:30 AM ASSISTANT PLANT CONTROL OPERATOR DIFFERENTIAL, MANUAL Routine 07/07/2007 2:30 AM ASSISTANT PLANT CONTROL OPERATOR CBC WITH DIFFERENTIAL Routine 07/07/2007 2:30 AM ASSISTANT PLANT CONTROL OPERATOR BASIC METABOLIC PANEL Routine 07/07/2007 2:30 AM ASSISTANT PLANT CONTROL OPERATOR URINALYSIS MICROSCOPY ONLY Routine 07/06/2007 1:09 PM ASSISTANT PLANT CONTROL OPERATOR URINALYSIS W/REFLEX MICROSCOPIC Routine 07/06/2007 1:09 PM ASSISTANT PLANT CONTROL OPERATOR ENDOMYSIAL IGA AUTOANTIBODY Routine 07/06/2007 11:38 AM ASSISTANT PLANT CONTROL OPERATOR HEMOGLOBIN AND HEMATOCRIT Routine 07/05/2007 3:28 AM ASSISTANT PLANT CONTROL OPERATOR CBC WITH DIFFERENTIAL Routine 07/04/2007 2:53 AM ASSISTANT PLANT CONTROL OPERATOR BASIC METABOLIC PANEL Routine 07/04/2007 2:53 AM ASSISTANT PLANT CONTROL OPERATOR HEMOGLOBIN AND HEMATOCRIT Routine 07/03/2007 4:05 AM ASSISTANT PLANT CONTROL OPERATOR HEMOGLOBIN AND HEMATOCRIT Routine 07/02/2007 2:09 PM ASSISTANT PLANT CONTROL OPERATOR CARDIAC ENZYMES Routine 07/02/2007 6:27 AM ASSISTANT PLANT CONTROL OPERATOR CBC WITH DIFFERENTIAL Routine 07/02/2007 4:23 AM ASSISTANT PLANT CONTROL OPERATOR COMPREHENSIVE METABOLIC PANEL Routine 07/02/2007 4:23 AM ASSISTANT PLANT CONTROL OPERATOR FOLATE, SERUM Routine 07/02/2007 12:04 AM ASSISTANT PLANT CONTROL OPERATOR IRON, TIBC, AND PERCENT SATURATION Routine 07/02/2007 12:04 AM ASSISTANT PLANT CONTROL OPERATOR CARDIAC ENZYMES Routine 07/02/2007 12:04 AM ASSISTANT PLANT CONTROL OPERATOR FERRITIN Routine 07/02/2007 12:04 AM ASSISTANT PLANT CONTROL OPERATOR VITAMIN B12 LEVEL Routine 07/02/2007 12: 04 AM ASSISTANT PLANT CONTROL OPERATOR XR CHEST PA OR AP 1 VW Routine 7 7:27 PM ASSISTANT PLANT CONTROL OPERATOR CARDIAC ENZYMES Routine 07/01/2007 6:11 PM ASSISTANT PLANT CONTROL OPERATOR CBC WITH DIFFERENTIAL Routine 07/01/2007 6:11 PM ASSISTANT PLANT CONTROL OPERATOR PTT Routine 07/01/2007 6:11 PM ASSISTANT PLANT CONTROL OPERATOR PROTIME-INR Routine 07/01/2007 6:11 PM ASSISTANT PLANT CONTROL OPERATOR HCG QUANTITATIVE, BLOOD Routine 07/01/2007 6:11 PM ASSISTANT PLANT CONTROL OPERATOR TSH Routine 07/01/2007 6:11 PM ASSISTANT PLANT CONTROL OPERATOR BASIC METABOLIC PANEL Routine 07/01/2007 6:11 PM ASSISTANT PLANT CONTROL OPERATOR documented in this encounter Results * (ABNORMAL) CBC WITH DIFFERENTIAL (07/09/2007 9:30 AM ASSISTANT PLANT CONTROL OPERATOR) WBC 6.3 4.5 - 11.0 K/ul INTERFACE [...] Automated Diff INTERFACE SYSTEM 07/09/2007 9:30 AM ASSISTANT PLANT CONTROL OPERATOR Narrative INTERFACE SYSTEM - 07/09/2007 9:41 AM ASSISTANT PLANT CONTROL OPERATOR Ordered by an unspecified provider. Historical Provider HEMATOLOGY ORDERABLES Edited INTERFACE SYSTEM Refer to clinic/hospital department * (ABNORMAL) DIFFERENTIAL, MANUAL (07/07/2007 2:30 AM ASSISTANT PLANT CONTROL OPERATOR) NEUTROPHILS, SEG 60 36 - 66 % [...] Seen INTERFA CE SYSTEM 07/07/2007 2:30 AM ASSISTANT PLANT CONTROL OPERATOR Chon Mobley MD HEMATOLOGY ORDERABLES COM Ed ited INTERFACE SYSTEM Refer to clinic/hospital department * (ABNORMAL) BASIC METABOLIC PANEL (07/07/2007 2:30 AM ASSISTANT PLANT CONTROL OPERATOR) GLUCOSE 69(L) 70 - 110 mg/dL INTERFACE [...] 295 mOsm/Kg INTERFACE SYSTEM 07/07/2007 2:30 AM ASSISTANT PLANT CONTROL OPERATOR Chon Mobley MD CHEMISTRY ORDERABLES Edited Performing Organization Address [facility] de Phone Number INTERFACE SYSTEM Refer to clinic/hospital department * (ABNORMAL) CBC WITH DIFFERENTIAL (07/07/2007 2:30 AM ASSISTANT PLANT CONTROL OPERATOR) Pathologist [facility] WBC 6.0 4.5 - 11.0 K/ul INTERFACE [...] 12.8 Fl INTERFACE SYSTEM 07/07/2007 2:30 AM ASSISTANT PLANT CONTROL OPERATOR Chon Mobley MD HEMATOLOGY ORDERABLES Edited Performing Organization Address [facility] de Phone Number INTERFACE SYSTEM Refer to clinic/hospital department * (ABNORMAL) URINALYSIS MICROSCOPY ONLY (07/06/2007 1:09 PM ASSISTANT PLANT CONTROL OPERATOR) WBC URINE 0-2 0 - 2 INTERFACE SYSTEM RBC UA 6-10(A) 0 - 2 INTERFACE SYSTEM HYALINE CAST None Seen 0 - 2 INTERFA CE SYSTEM BACTERIA UA Many(A) None Seen INTERFAC E SYSTEM 07/06/2007 1:09 PM ASSISTANT PLANT CONTROL OPERATOR us Chon Mobley MD URINE ORDERABLES Edited Performing Organization Address [facility] Phone Number INTERFACE SYSTEM Refer to clinic/hospital department * (ABNORMAL) URINALYSIS (07/06/2007 1:09 PM ASSISTANT PLANT CONTROL OPERATOR) COLOR UA Yellow Straw INTERFACE SYSTEM CLARITY [...] Yes(A) No INTERFACE SYSTEM 07/06/2007 1:09 PM ASSISTANT PLANT CONTROL OPERATOR us Chon Mobley MD URINE ORDERABLES Edited Performing Organization Address [facility] Phone Number INTERFACE SYSTEM Refer to clinic/hospital department * ENDOMYSIAL IGA AUTOANTIBODY (07/06/2007 11:38 AM ASSISTANT PLANT CONTROL OPERATOR) ENDOMYSIAL AB IGA See Sep Report INTERFACE SYSTEM 07/06/2007 11:3 8 AM ASSISTANT PLANT CONTROL OPERATOR us Chon Mobley MD CHEMISTRY ORDERABLES Edited Performing Organization Address [facility] Phone Number INTERFACE SYSTEM Refer to clinic/hospital department * (ABNORMAL) HEMOGLOBIN AND HEMATOCRIT (07/05/2007 3:28 AM ASSISTANT PLANT CONTROL OPERATOR) HEMOGLOBIN 9.8(L) 12.0 - 16.0 g/dL INTERFACE SYSTEM HEMATOCRIT 33.1(L) 36.0 - 46.0 % INTERFACE SYSTEM 07/05/2007 3:28 AM ASSISTANT PLANT CONTROL OPERATOR Chon Mobley MD HEMATOLOGY ORDERABLES Edited Performing Organization Address [facility] Phone Number INTERFACE SYSTEM Refer to clinic/hospital department * (ABNORMAL) BASIC METABOLIC PANEL (07/04/2007 2:53 AM ASSISTANT PLANT CONTROL OPERATOR) GLUCOSE 91 70 - 110 mg/dL INTERFACE [...] 295 mOsm/Kg INTERFACE SYSTEM 07/04/2007 2:53 AM ASSISTANT PLANT CONTROL OPERATOR Chon Mobley MD CHEMISTRY ORDERABLES Edited Performing Organization Address [facility] Phone Number INTERFACE SYSTEM Refer to clinic/hospital department * (ABNORMAL) CBC WITH DIFFERENTIAL (07/04/2007 2:53 AM ASSISTANT PLANT CONTROL OPERATOR) WBC 6.6 4.5 - 11.0 K/ul INTERFACE [...] Automated Diff INTERFACE SYSTEM 07/04/2007 2:53 AM ASSISTANT PLANT CONTROL OPERATOR Chon Mobley MD HEMATOLOGY ORDERABLES Edited Performing Organization Address [facility] de Phone Number INTERFACE SYSTEM Refer to clinic/hospital department * (ABNORMAL) HEMOGLOBIN AND HEMATOCRIT (07/03/2007 4:05 AM ASSISTANT PLANT CONTROL OPERATOR) HEMOGLOBIN 9.8(L) 12.0 - 16.0 g/dL INTERFACE SYSTEM HEMATOCRIT 32.0(L) 36.0 - 46.0 % INTERFACE SYSTEM 07/03/2007 4:05 AM ASSISTANT PLANT CONTROL OPERATOR Chon Mobley MD HEMATOLOGY ORDERABLES Edited Performing Organization Address [facility] de Phone Number INTERFACE SYSTEM Refer to clinic/hospital department * (ABNORMAL) HEMOGLOBIN AND HEMATOCRIT (07/02/2007 2:09 PM ASSISTANT PLANT CONTROL OPERATOR) HEMOGLOBIN 9.8(L) 12.0 - 16.0 g/dL INTERFACE SYSTEM HEMATOCRIT 31.7(L) 36.0 - 46.0 % INTERFACE SYSTEM 07/02/2007 2:09 PM ASSISTANT PLANT CONTROL OPERATOR Chon Mobley MD HEMATOLOGY ORDERABLES Edited Performing Organization Address [facility] Co de Phone Number INTERFACE SYSTEM Refer to clinic/hospital department * CARDIAC ENZYMES (07/02/2007 6:27 AM ASSISTANT PLANT CONTROL OPERATOR) TROPONIN I <0.1 0.0 - 1.3 ng/mL INTERFACE SYSTEM Comment: As of 06 the Troponin Reference Range has changed from 0.0-1.5 ng/ml to 0.0- 1.3 ng/ml due to a change in testing methodology. CKMB <0.2 0.0 - 5.0 ng/mL INTERFACE SYSTEM 07/02/2007 6:27 AM ASSISTANT PLANT CONTROL OPERATOR us Marissa Hardin MD CHEMISTRY ORDERABLES Edited Performing Organization Address [facility] de Phone Number INTERFACE SYSTEM Refer to clinic/hospital department * (ABNORMAL) COMPREHENSIVE METABOLIC PANEL (07/02/2007 4:23 AM ASSISTANT PLANT CONTROL OPERATOR) GLOBULIN (CALC) 1.7(L) 2.4 - 3.9 g/dL [...] 295 mOsm/Kg INTERFACE SYSTEM 07/02/2007 4:23 AM ASSISTANT PLANT CONTROL OPERATOR us Chon Mobley MD CHEMISTRY ORDERABLES Edited INTERFACE SYSTEM Refer to clinic/hospital department * (ABNORMAL) CBC WITH DIFFERENTIAL (07/02/2007 4:23 AM ASSISTANT PLANT CONTROL OPERATOR) WBC 13.9(H) 4.5 - 11.0 K/ul INTERFACE [...] Automated Diff INTERFACE SYSTEM 07/02/2007 4:23 AM ASSISTANT PLANT CONTROL OPERATOR us Chon Mobley MD HEMATOLOGY ORDERABLES Edited INTERFACE SYSTEM Refer to clinic/hospital department * CARDIAC ENZYMES (07/02/2007 12:04 AM ASSISTANT PLANT CONTROL OPERATOR) TROPONIN I <0.1 0.0 - 1.3 ng/mL INTERFACE SYSTEM Comment: As of 06 the Troponin Reference Range has changed from 0.0-1.5 ng/ml to 0.0- 1.3 ng/ml due to a change in testing methodology. CKMB <0.2 0.0 - 5.0 ng/mL INTERFACE SYSTEM 07/02/2007 12:0 4 AM ASSISTANT PLANT CONTROL OPERATOR us Marissa Hardin MD CHEMISTRY ORDERABLES Edited Performing Organization Address City/[facility] de Phone Number INTERFACE SYSTEM Refer to clinic/hospital department * (ABNORMAL) VITAMIN B12 (07/02/2007 12:04 AM ASSISTANT PLANT CONTROL OPERATOR) VITAMIN B12 164(L) 211 - 911 pg/dL INTERFACE SYSTEM 07/02/2007 12:0 4 AM ASSISTANT PLANT CONTROL OPERATOR us Chon Mobley MD CHEMISTRY ORDERABLES Edited Performing Organization Address [facility] de Phone Number INTERFACE SYSTEM Refer to clinic/hospital department * FOLATE, SERUM (07/02/2007 12:04 AM ASSISTANT PLANT CONTROL OPERATOR) FOLATE, SERUM 12.54 >=5.38 ng/dL INTERFACE SYSTEM 07/02/2007 12:0 4 AM ASSISTANT PLANT CONTROL OPERATOR us Chon Mobley MD CHEMISTRY ORDERABLES Edited Performing Organization Address [facility] de Phone Number INTERFACE SYSTEM Refer to clinic/hospital department * (ABNORMAL) FERRITIN (07/02/2007 12:04 AM ASSISTANT PLANT CONTROL OPERATOR) FERRITIN 3.0(L) 10.0 - 291.0 ng/mL INTERFACE SYSTEM 07/02/2007 12:0 4 AM ASSISTANT PLANT CONTROL OPERATOR Result Luciana Mobley MD CHEMISTRY ORDERABLES Edited Performing Organization Address [facility] de Phone Number INTERFACE SYSTEM Refer to clinic/hospital department * IRON AND TIBC (07/02/2007 12:04 AM ASSISTANT PLANT CONTROL OPERATOR) TIBC 365 250 - 450 ug/dL INTERFACE SYSTEM IRON % SATURATION 45 15 - 50 % INTERFACE SYSTEM IRON 164 50 - 170 ug/dL INTERFACE SYSTEM Comment: As of Sep 11, 2005 the reference ranges have changed due to new instrumentation. 07/02/2007 12:0 4 AM ASSISTANT PLANT CONTROL OPERATOR Chon Mobley MD CHEMISTRY ORDERABLES Edited INTERFACE SYSTEM Refer to clinic/hospital department * XR CHEST PA OR AP (07/01/2007 7:27 PM ASSISTANT PLANT CONTROL OPERATOR) Anatomical Region Laterality Modality Chest Other 07/01/2007 7:27 PM ASSISTANT PLANT CONTROL OPERATOR Narrative 07/01/2007 7:27 PM ASSISTANT PLANT CONTROL OPERATOR Exam: Chest - PortableDate/Time of Exam: Jul [...] BETA HCG QUANTITATIVE, BLOOD (07/01/2007 6:11 PM ASSISTANT PLANT CONTROL OPERATOR) CHORIONIC GONADOTROPIN, TOTAL <2.0 0.0 - 10.0 mlU/ML INTERFACE SYSTEM Comment: Total HCG levels between 10 mIU/mL and 25 mIU/mL may be indicative of early but need to be correlated with other clinical findings. HCG ranges during normal , as reported by the table games floor supervisor, are summarized as follows: Gestational Age Expected hCG Values (mIU/ml) 0.2-1 Weeks 5 - 50 1-2 Weeks 50 - 500 2-3 Weeks 100 - 5,000 3-4 Weeks 1,000 - 50,000 5-6 Weeks 10,000 - 100,000 6-8 Weeks 15,000 - 200,000 2-3 Months 10,000 - 100,000 07/01/2007 6:11 PM ASSISTANT PLANT CONTROL OPERATOR Chon Mobley MD CHEMISTRY ORDERABLES Edited Performing Organization Address [facility] de Phone Number INTERFACE SYSTEM Refer to clinic/hospital department * TSH (07/01/2007 6:11 PM ASSISTANT PLANT CONTROL OPERATOR) TSH 1.770 0.350 - 5.500 uIU/ml INTERFACE SYSTEM 07/01/2007 6:11 PM ASSISTANT PLANT CONTROL OPERATOR Chon Mobley MD CHEMISTRY ORDERABLES Edited Performing Organization Address [facility] Phone Number INTERFACE SYSTEM Refer to clinic/hospital department * (ABNORMAL) CBC WITH DIFFERENTIAL (07/01/2007 6:11 PM ASSISTANT PLANT CONTROL OPERATOR) WBC 6.0 4.5 - 11.0 K/ul INTERFACE [...] Automated Diff INTERFACE SYSTEM 07/01/2007 6:11 PM ASSISTANT PLANT CONTROL OPERATOR us Marissa Hardin MD HEMATOLOGY ORDERABLES Edited Performing Organization Address City/State/[facility] Co de Phone Number INTERFACE SYSTEM Refer to clinic/hospital department * PTT (07/01/2007 6:11 PM ASSISTANT PLANT CONTROL OPERATOR) PTT 23.1 21.6 - 35.6 Secs INTERFACE SYSTEM Comment: Therapeutic Range: Hi-level PE/DVT heparin protocol 80.1 -95.0 sec Lo-level PE/DVT heparin protocol 67.1 - 80.0 sec Cardiac Heparin Protocol 67.1 - 85.0 sec Neuro Heparin Protocol 67.1 - 80.0 sec As of 07/09/2006 note change in APTT Normal Range. 07/01/2007 6:11 PM ASSISTANT PLANT CONTROL OPERATOR us Marissa Hardin MD HEMATOLOGY ORDERABLES Edited INTERFACE SYSTEM Refer to clinic/hospital department * PROTIME-INR (07/01/2007 6:11 PM ASSISTANT PLANT CONTROL OPERATOR) PROTIME 14.0 13.0 - 15.7 Secs INTERFACE SYSTEM Comment: As of 06 note change in normal range. INR 1.0 INTERFACE SYSTEM Comment: Expected Values for INR: DVT/PE Goal INR 2.5; range 2.0 - 3.0 Valve Replacement Tissue Goal INR 2.5; range 2.0 - 3.0 Mechanical Goal INR 3.0; range 2.5 - 3.5 POST-NV Goal INR 2.5; range 2.0 - 3.0 or Goal 3.0; range 2.5 - 3.5 Atrial Fibrillation Goal INR 2.5; range 2.0 - 3.0 Ischemic Stroke Goal INR 2.5; range 2.0 - 3.0 For additional information see Guidelines for Anticoagulation available from the pharmacy Aleksandra Otero, Pharm D. 07/01/2007 6:11 PM ASSISTANT PLANT CONTROL OPERATOR us Marissa Hardin MD HEMATOLOGY ORDERABLES Edited Performing Organization Address [facility] Phone Number INTERFACE SYSTEM Refer to clinic/hospital department * (ABNORMAL) BASIC METABOLIC PANEL (07/01/2007 6:11 PM ASSISTANT PLANT CONTROL OPERATOR) GLUCOSE 98 70 - 110 mg/dL INTERFACE [...] 295 mOsm/Kg INTERFACE SYSTEM 07/01/2007 6:11 PM ASSISTANT PLANT CONTROL OPERATOR us Marissa Hardin MD CHEMISTRY ORDERABLES Edited Performing Organization Address [facility]/ZIP Co de Phone Number INTERFACE SYSTEM Refer to clinic/hospital department * CARDIAC ENZYMES (07/01/2007 6:11 PM ASSISTANT PLANT CONTROL OPERATOR) TROPONIN I <0.1 0.0 - 1.3 ng/mL INTERFACE SYSTEM Comment: As of 06 the Troponin Reference Range has changed from 0.0-1.5 ng/ml to 0.0- 1.3 ng/ml due to a change in testing methodology. CKMB <0.2 0.0 - 5.0 ng/mL INTERFACE SYSTEM 07/01/2007 6:11 PM ASSISTANT PLANT CONTROL OPERATOR us Marissa Hardin MD CHEMISTRY ORDERABLES Edited Performing Organization Address [facility] Co de Phone Number INTERFACE SYSTEM Refer to clinic/hospital department documented in this encounter Visit Diagnoses Diagnosis Adjustment disorder with depressed mood Rectal prolapse Blood in stool Urinary tract infection, site not specified Iron deficiency anemia secondary to blood loss (chronic) Gastroparesis Suicidal ideation Foreign body in stomach Other emphysema Other vitamin B12 deficiency anemia Postgastric surgery syndromes Unspecified hemorrhoids without mention of complication 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
--- OUTSIDE RECORDS SUMMARY | 2025-05-03 15:31 | XMS_ITS | Encounter Summary ---
Author Organization [employer] [facility] Address [address] [place] [address] Care Team Providers Care Pi/Senior Research Associate Name Role Phone Non-Staff, Physician Primary Care Provider Unava ilable Encounter Details Date Type Department Care Team (Late st Contact Info) Description 08/07/2007 Outpatient Historical [facility] [address] [place] [address] AMBULANCE, [facility] Social History Tobacco Use Types Packs/Day Years Used Date Smoking Tobacco: Never Assessed Comments Unknown Sex and Gender Information Value Date Recorded Sex Assigned at Not on file Legal Sex Female 6:52 AM ASSEMBLY LINE ROBOT OPERATOR Gender Identity Not on file Sexual Orientation Not on file documented as of this encounter Plan of Treatment Not on file documented as of this encounter Visit Diagnoses Not on filedocumented in this encounter Care Teams Pi/Senior Research Associate Relationship Specialty Start Date End Date Non-Staff, Physician NO ADDRESS ON FILE PCP - General 07/02/07 documented as of this encounter
--- OUTSIDE RECORDS SUMMARY | 2025-05-03 15:31 | XMS_ITS | Encounter Summary ---
Author Organization [facility] Address [address] [place] [address] Care Team Providers Care Curriculum And Assessment Coordinator Name Role Phone Non-Staff, Physician Primary Care Provider Unava ilable Encounter Details Date Type Department Care Team (Late st Contact Info) Description 08/14/2007 Emergency [facility] Emergency Department [address] [place] [address] Ed, Physician NO ADDRESS ON [...] on file Legal Sex Female 6:52 AM BLOCK SAW OPERATOR Gender Identity Not on file Sexual Orientation Not on file documented as of this encounter Plan of Treatment Not on file documented as of this encounter Procedures Procedure Name Priority Date/Time Associated Diagnosis Comments URINALYSIS W/REFLEX MICROSCOPIC Routine 08/14/2007 6:35 PM BLOCK SAW OPERATOR CBC WITH DIFFERENTIAL Routine 08/14/2007 4:16 PM BLOCK SAW OPERATOR documented in this encounter Results * URINALYSIS (08/14/2007 6:35 PM BLOCK SAW OPERATOR) COLOR UA Straw Straw INTERFACE SYSTEM CLARITY [...] No No INTERFACE SYSTEM 08/14/2007 6:35 PM BLOCK SAW OPERATOR Joe Perez MD URINE ORDERABLES Edited INTERFACE SYSTEM Refer to clinic/hospital department * (ABNORMAL) CBC WITH DIFFERENTIAL (08/14/2007 4:16 PM BLOCK SAW OPERATOR) WBC 5.4 4.5 - 11.0 K/ul INTERFACE [...] Automated Diff INTERFACE SYSTEM 08/14/2007 4:16 PM BLOCK SAW OPERATOR Joe Perez MD HEMATOLOGY ORDERABLES Edit ed INTERFACE SYSTEM Refer to clinic/hospital department documented in this encounter Visit Diagnoses Diagnosis Lumbago Chronic airway obstruction, not elsewhere classified (CMS/[facility]) Chronic airway obstruction, not elsewhere classified Encounter for long-term (current) use of other medications Personal history of allergy to penicillin Personal history of allergy to analgesic agent documented in this encounter Care Teams Curriculum And Assessment Coordinator Relationship Specialty Start Date End Date Non-Staff, Physician NO ADDRESS ON FILE PCP - General 07/02/07 documented as of this encounter
--- OUTSIDE RECORDS SUMMARY | 2025-05-03 15:31 | XMS_ITS | Encounter Summary ---
Author Organization [facility] Address [address] [place] [address] Care Team Providers Care Compliance Specialist Name Role Phone Non-Staff, Physician Primary Care Provider Unava ilable Encounter Details Date Type Department Care Team (Late st Contact Info) Description 07/21/2007 Emergency [facility] Emergency Department [address] [place] [address] Ed, Physician NO ADDRESS ON [...] on file Legal Sex Female 6:52 AM CONTROL SPECIALIST Gender Identity Not on file Sexual Orientation Not on file documented as of this encounter Plan of Treatment Not on file documented as of this encounter Visit Diagnoses Diagnosis Other chronic pain Neuralgia, neuritis, and radiculitis, unspecified Tobacco use disorder Personal history of allergy to analgesic agent Personal history of allergy to penicillin documented in this encounter Care Teams Compliance Specialist Relationship Specialty Start Date End Date Non-Staff, Physician NO ADDRESS ON FILE PCP - General 07/02/07 documented as of this encounter
--- OUTSIDE RECORDS SUMMARY | 2025-05-03 15:31 | XMS_ITS | Encounter Summary ---
Author Organization [facility] Address [address] [place] [address] Care Team Providers Care Lockstitch Hemmer Name Role Phone Non-Staff, Physician Primary Care Provider Unava ilable Encounter Details Date Type Department Care Team (Late st Contact Info) Description 08/01/2007 Outpatient Historical [facility] [address] [place] [address] AMBULANCE, [facility] Social History Tobacco Use Types Packs/Day Years Used Date Smoking Tobacco: Never Assessed Comments Unknown Sex and Gender Information Value Date Recorded Sex Assigned at Not on file Legal Sex Female 6:52 AM CLIENT CARE SPECIALIST Gender Identity Not on file Sexual Orientation Not on file documented as of this encounter Plan of Treatment Not on file documented as of this encounter Visit Diagnoses Not on filedocumented in this encounter Care Teams Lockstitch Hemmer Relationship Specialty Start Date End Date Non-Staff, Physician NO ADDRESS ON FILE PCP - General 07/02/07 documented as of this encounter
--- OUTSIDE RECORDS SUMMARY | 2025-05-03 15:31 | XMS_ITS | Encounter Summary ---
Author Organization [facility] Address [address] [place] [address] Care Team Providers Care Lease Purchase Driver Name Role Phone Non-Staff, Physician Primary Care Provider Unava ilable Encounter Details Date Type Department Care Team (Late st Contact Info) Description 08/01/2007 Emergency [facility] Emergency Department [address] [place] [address] Ed, Physician NO ADDRESS ON FILE Maxine Hodges MD [address] [facility] [address] [place] [address] Other and Unspecified Ovarian Cyst; Personal History of Peptic Ulcer Disease; Personal History of Allergy to Analgesic Agent; Personal History of Allergy to Penicillin Social History Tobacco Use Types Packs/Day Years Used Date Smoking Tobacco: Never Assessed Comments Unknown Sex and Gender Information Value Date Recorded Sex Assigned at Not on file Legal Sex Female 6:52 AM ICD 9 CODER Gender Identity Not on file Sexual Orientation Not on file documented as of this encounter Plan of Treatment Not on file documented as of this encounter Procedures Procedure Name Priority Date/Time Associated Diagnosis Comments PT AND APTT Routine 08/01/2007 7:55 PM ICD 9 CODER CBC WITH DIFFERENTIAL Routine 08/01/2007 7:55 PM ICD 9 CODER HCG QUANTITATIVE, BLOOD Routine 08/01/2007 7:55 PM ICD 9 CODER BASIC METABOLIC PANEL Routine 08/01/2007 7:55 PM ICD 9 CODER documented in this encounter Results * BETA HCG QUANTITATIVE, BLOOD (08/01/2007 7:55 PM ICD 9 CODER) CHORIONIC GONADOTROPIN, TOTAL <2.0 0.0 - 10.0 mlU/ML INTERFACE SYSTEM 08/01/2007 7:55 PM ICD 9 CODER us Maxine Hodges MD CHEMISTRY ORDERABLES Edited Performing Organization Address [facility] Phone Number INTERFACE SYSTEM Refer to clinic/hospital department * (ABNORMAL) PT AND APTT (08/01/2007 7:55 PM ICD 9 CODER) Pathologist [facility] PROTIME 12.5(L) 12.8 - 15.8 Secs INTERFACE SYSTEM INR 0.8 INTERFACE SYSTEM PTT 26.4 21.6 - 35.6 Secs INTERFACE SYSTEM 08/01/2007 7:55 PM ICD 9 CODER us Maxine Hodges MD HEMATOLOGY ORDERABLES Edite d Performing Organization Address [facility] Number INTERFACE SYSTEM Refer to clinic/hospital department * BASIC METABOLIC PANEL (08/01/2007 7:55 PM ICD 9 CODER) Pathologist [facility] GLUCOSE 95 70 - 110 mg/dL INTERFACE [...] 295 mOsm/Kg INTERFACE SYSTEM 08/01/2007 7:55 PM ICD 9 CODER us Maxine Hodges MD CHEMISTRY ORDERABLES Edited Performing Organization Address [facility] Phone Number INTERFACE SYSTEM Refer to clinic/hospital department * (ABNORMAL) CBC WITH DIFFERENTIAL (08/01/2007 7:55 PM ICD 9 CODER) Pathologist [facility] WBC 8.9 4.5 - 11.0 K/ul INTERFACE [...] Automated Diff INTERFACE SYSTEM 08/01/2007 7:55 PM ICD 9 CODER Maxine Hodges MD HEMATOLOGY ORDERABLES Edite d INTERFACE SYSTEM Refer to clinic/hospital department documented in this encounter Visit Diagnoses Diagnosis Other and unspecified ovarian cyst Personal history of peptic ulcer disease Personal history of allergy to analgesic agent Personal history of allergy to penicillin documented in this encounter Care Teams Lease Purchase Driver Relationship Specialty Start Date End Date Non-Staff, Physician NO ADDRESS ON FILE PCP - General 07/02/07 documented as of this encounter
--- OUTSIDE RECORDS SUMMARY | 2025-05-03 15:31 | XMS_ITS | Encounter Summary ---
Author Organization [facility] Address [address] [place] [address] Care Team Providers Care Taper And Floater Name Role Phone Non-Staff, Physician Primary Care Provider Unava ilable Encounter Details Date Type Department Care Team (Late st Contact Info) Description 08/02/2007 Outpatient [facility] [address] [place] [address] AMBULANCE, [facility] Chronic Obstructive Asthma, Unspecified (CMS/HCC); Tobacco Use Disorder; Encounter for Long-Term (Current) Use of Other Medications; Personal History of Allergy to Penicillin; Personal History of Allergy to Analgesic Agent Social History Tobacco Use Types Packs/Day Years Used Date Smoking Tobacco: Never Assessed Comments Unknown Sex and Gender Information Value Date Recorded Sex Assigned at Not on file Legal Sex Female 6:52 AM DIRECTOR APPAREL Gender Identity Not on file Sexual Orientation [...] agent documented in this encounter Care Teams Taper And Floater Relationship Specialty Start Date End Date Non-Staff, Physician NO ADDRESS ON FILE PCP - General 07/02/07 documented as of this encounter
--- OUTSIDE RECORDS SUMMARY | 2025-05-03 15:31 | XMS_ITS | Encounter Summary ---
Author Organization [facility] Address [address] [place] [address] Care Team Providers Care Fermenter Wine Name Role Phone Non-Staff, Physician Primary Care Provider Unava ilable Encounter Details Date Type Department Care Team (Late st Contact Info) Description 07/18/2007 Outpatient Historical [facility] [address] [place] [address] AMBULANCE, [facility] Social History Tobacco Use Types Packs/Day Years Used Date Smoking Tobacco: Never Assessed Comments Unknown Sex and Gender Information Value Date Recorded Sex Assigned at Not on file Legal Sex Female 6:52 AM POSTAL CLERK Gender Identity Not on file Sexual Orientation Not on file documented as of this encounter Plan of Treatment Not on file documented as of this encounter Visit Diagnoses Not on filedocumented in this encounter Care Teams Fermenter Wine Relationship Specialty Start Date End Date Non-Staff, Physician NO ADDRESS ON FILE PCP - General 07/02/07 documented as of this encounter
--- OUTSIDE RECORDS SUMMARY | 2025-05-03 15:31 | XMS_ITS | Encounter Summary ---
Author Organization [facility] Address [address] [place] [address] Care Team Providers Care Art Historian Name Role Phone Non-Staff, Physician Primary Care Provider Unava ilable Encounter Details Date Type Department Care Team (Late st Contact Info) Description 08/15/2007 Emergency [facility] Emergency Department [address] [place] [address] Ed, Physician NO ADDRESS ON FILE Prabhjot Bartlett PA [address] [place] [address] Lumbago; Personal History of Injury, Presenting Hazards to Health; Personal History of Allergy to Penicillin; Personal History of Allergy to Other Specified Medicinal Agents Social History Tobacco Use Types Packs/Day Years Used Date Smoking Tobacco: Never Assessed Comments Unknown Sex and Gender Information Value Date Recorded Sex Assigned at Not on file Legal Sex Female 6:52 AM FACTORER Gender Identity Not on file Sexual Orientation Not on file documented as of this encounter Plan of Treatment Not on file documented as of this encounter Visit Diagnoses Diagnosis Lumbago Personal history of injury, presenting hazards to health Personal history of allergy to penicillin Personal history of allergy to other specified medicinal agents documented in this encounter Care Teams Art Historian Relationship Specialty Start Date End Date Non-Staff, Physician NO ADDRESS ON FILE PCP - General 07/02/07 documented as of this encounter
--- OUTSIDE RECORDS SUMMARY | 2025-05-03 15:31 | XMS_ITS | Clinical Summary ---
Author Organization [facility] Address [address] [place] [address] Phone Care Team Providers Care Guest Relations Associate Name Role Phone Non-Staff, Physician Primary Care Provider Unava ilable Social History Tobacco Use Types Packs/Day Years Used Date Smoking Tobacco: Never Assessed Comments Unknown Sex and Gender Information Value Date Recorded Sex Assigned at Not on file Legal Sex Female 6:52 AM VIOLIN RESTORER Gender Identity Not on file Sexual Orientation [...] age to complete this topic Insurance MEDICAID [place] Care Teams Guest Relations Associate Relationship Specialty Start Date End Date Non-Staff, Physician NO ADDRESS ON FILE PCP - General 07/02/07
--- OUTSIDE RECORDS SUMMARY | 2025-05-03 15:32 | XMS_ITS | Encounter Summary ---
Author Organization [facility] Address [address] [place] [address] Care Team Providers Care Vehicle Painter Name Role Phone Non-Staff, Physician Primary Care Provider Unava ilable Encounter Details Date Type Department Care Team (Late st Contact Info) Description 07/27/2007 Outpatient Historical [facility] [address] [place] [address] [facility] Social History Tobacco Use Types Packs/Day Years Used Date Smoking Tobacco: Never Assessed Comments Unknown Sex and Gender Information Value Date Recorded Sex Assigned at Not on file Legal Sex Female 6:52 AM TELEPHONE ORDER CLERK ROOM SERVICE Gender Identity Not on file Sexual Orientation Not on file documented as of this encounter Plan of Treatment Not on file documented as of this encounter Visit Diagnoses Not on filedocumented in this encounter Care Teams Vehicle Painter Relationship Specialty Start Date End Date Non-Staff, Physician NO ADDRESS ON FILE PCP - General 07/02/07 documented as of this encounter
--- OUTSIDE RECORDS SUMMARY | 2025-05-03 15:32 | XMS_ITS | Encounter Summary ---
Author Organization [facility] Address [address] [place] [address] Care Team Providers Care Ehs Specialist Name Role Phone Non-Staff, Physician Primary Care Provider Unava ilable Encounter Details Date Type Department Care Team (Late st Contact Info) Description 07/28/2007 Emergency [facility] [address] [place] [address] Ed, Physician NO ADDRESS ON [...] on file Legal Sex Female 6:52 AM WIRE WEAVING LOOM SETTER Gender Identity Not on file Sexual Orientation Not on file documented as of this encounter Plan of Treatment Not on file documented as of this encounter Procedures Procedure Name Priority Date/Time Associated Diagnosis Comments POC GLUCOSE Routine 07/28/2007 3:58 PM WIRE WEAVING LOOM SETTER documented in this encounter Results * (ABNORMAL) POC GLUCOSE (07/28/2007 3:58 PM WIRE WEAVING LOOM SETTER) GLUCOSE POC 101(H) 60 - 100 mg/dL INTERFACE SYSTEM 07/28/2007 3:58 PM WIRE WEAVING LOOM SETTER Farshad Salinas MD POINT OF CARE TESTING [...] agent documented in this encounter Care Teams Ehs Specialist Relationship Specialty Start Date End Date Non-Staff, Physician NO ADDRESS ON FILE PCP - General 07/02/07 documented as of this encounter
--- OUTSIDE RECORDS SUMMARY | 2025-05-03 15:32 | XMS_ITS | Encounter Summary ---
Author Organization [facility] Address [address] [place] [address] Care Team Providers Care Glaze Sprayer Name Role Phone Non-Staff, Physician Primary Care Provider Unava ilable Encounter Details Date Type Department Care Team (Late st Contact Info) Description 08/16/2007 Outpatient Historical [facility] [address] [place] [address] AMBULANCE, [facility] Social History Tobacco Use Types Packs/Day Years Used Date Smoking Tobacco: Never Assessed Comments Unknown Sex and Gender Information Value Date Recorded Sex Assigned at Not on file Legal Sex Female 6:52 AM LINOTYPIST Gender Identity Not on file Sexual Orientation Not on file documented as of this encounter Plan of Treatment Not on file documented as of this encounter Visit Diagnoses Not on filedocumented in this encounter Care Teams Glaze Sprayer Relationship Specialty Start Date End Date Non-Staff, Physician NO ADDRESS ON FILE PCP - General 07/02/07 documented as of this encounter
--- OUTSIDE RECORDS SUMMARY | 2025-05-03 15:32 | XMS_ITS | Encounter Summary ---
Author Organization [facility] Address [address] [place] [address] Care Team Providers Care Visiting Teacher Name Role Phone Non-Staff, Physician Primary Care Provider Unava ilable Encounter Details Date Type Department Care Team (Late st Contact Info) Description 11/13/2007 Outpatient Historical HIS IN BED Sj Ed, Physician NO ADDRESS ON FILE Tripp Montalvo MD NO ADDRESS ON FILE Angel Rene, DO [address] [id number] Blood in Stool; Postgastric Surgery Syndromes; Other [...] on file Legal Sex Female 6:52 AM CORSET MAKER Gender Identity Not on file Sexual [...] CDT) CREATININE 0.5(L) 0.7 - 1.2 mg/dL [facility] CALCIUM 9.0 8.4 - 10.5 mg/dL [facility] GLUCOSE 109 70 - 110 mg/dL [facility] CHLORIDE 105 95 - 110 mEq/L [facility] ANION GAP 10 9 - 20 mEq/L [facility] SODIUM 138 136 - 145 mEq/L [facility] BUN 2(L) 7 - 17 mg/dL [facility] CO2 27 22 - 32 mmol/l [facility] POTASSIUM 4.0 3.5 - 5.0 mEq/L [facility] OSMOLALITY, CALCULATED 281 275 - 295 mOsm/Kg [facility] Blood specimen (specimen) 11/17/2007 3:26 AM CDT 11/17/2007 3:54 AM CDT us Angel Rene DO CHEMISTRY ORDERABLES Final Result [facility] [address] [place] [address] * (ABNORMAL) CBC WITH DIFFERENTIAL (11/17/2007 3:26 AM CDT) HEMATOCRIT 29.9(L) 36.0 - 46.0 % [facility] EOSINOPHILS 12.3(H) 0.0 - 7.0 % [facility] PLATELETS 182 140 - 440 K/ul [facility] EOSINOPHIL ABSOLUTE 0.5 0.0 - 0.7 K/ul [facility] RBC 3.68(L) 4.20 - 5.40 Mil/ul [facility] LYMPHOCYTES 25.9 24.0 - 44.0 % [facility] MCHC 31.1 30.0 - 35.0 g/dL [facility] LYMPHOCYTE ABSOLUTE 1.0(L) 1.2 - 4.0 K/ul [facility] MCV 81.3(L) 84.0 - 103.0 Fl [facility] MPV 10.3 8.9 - 12.8 Fl [facility] BASOPHILS ABSOLUTE 0.0 0.0 - 0.2 K/ul [facility] BASOPHILS 0.3 0.0 - 1.0 % [facility] HEMOGLOBIN 9.3(L) 12.0 - 16.0 g/dL [facility] RDW 14.7(H) 11.0 - 14.5 % [facility] MONOCYTE ABSOLUTE 0.5 0.1 - 0.6 K/ul [facility] MONOCYTES 14.1(H) 2.0 - 10.0 % [facility] WBC 3.8(L) 4.5 - 11.0 K/ul [facility] MCH 25.3(L) 27.0 - 34.0 pg [facility] NEUTROPHIL ABSOLUTE 1.8(L) 2.0 - 8.0 K/ul [facility] NEUTROPHILS 47.4 42.2 - 75.2 % [facility] Blood specimen (specimen) 11/17/2007 3:26 AM CDT 11/17/2007 3:54 AM CDT us Angel Rene DO HEMATOLOGY ORDERABLES Mercedes l Result Performing Organization Address City/State/[facility] Co de Phone Number [facility] [address] [place] [address] * XR UPR GI AND SMALL BOWEL [...] By: Christal Acuña M.D. Date Signed: 11/19/07 [facility] Procedure Note Christal Acuña - 11/19/2007 Upper [...] By: Christal Acuña M.D. Date Signed: 11/19/07 [facility] us Angel Rene DO DIAGNOSTIC IMAGING ORDERAB [...] CDT) BUN <2(L) 7 - 17 mg/dL [facility] CO2 31 22 - 32 mmol/l [facility] POTASSIUM 4.4 3.5 - 5.0 mEq/L [facility] OSMOLALITY, CALCULATED <287 275 - 295 mOsm/Kg [facility] CREATININE 0.6(L) 0.7 - 1.2 mg/dL [facility] CALCIUM 8.9 8.4 - 10.5 mg/dL [facility] GLUCOSE 111(H) 70 - 110 mg/dL [facility] CHLORIDE 104 95 - 110 mEq/L [facility] ANION GAP 10 9 - 20 mEq/L [facility] SODIUM 141 136 - 145 mEq/L [facility] Blood specimen (specimen) 11/15/2007 5:03 AM CDT 11/15/2007 6:00 AM CDT us Angel Rene DO CHEMISTRY ORDERABLES Final Result [facility] [address] [place] [address] * (ABNORMAL) CBC WITH DIFFERENTIAL (11/15/2007 5:03 AM CDT) LYMPHOCYTE ABSOLUTE 1.4 1.2 - 4.0 K/ul [facility] MCV 82.2(L) 84.0 - 103.0 Fl [facility] MPV 10.2 8.9 - 12.8 Fl [facility] BASOPHILS ABSOLUTE 0.0 0.0 - 0.2 K/ul [facility] BASOPHILS 0.1 0.0 - 1.0 % [facility] HEMOGLOBIN 9.6(L) 12.0 - 16.0 g/dL [facility] RDW 14.7(H) 11.0 - 14.5 % [facility] MONOCYTE ABSOLUTE 0.7(H) 0.1 - 0.6 K/ul [facility] MONOCYTES 9.6 2.0 - 10.0 % [facility] WBC 7.2 4.5 - 11.0 K/ul [facility] MCH 25.2(L) 27.0 - 34.0 pg [facility] NEUTROPHIL ABSOLUTE 4.6 2.0 - 8.0 K/ul [facility] NEUTROPHILS 64.0 42.2 - 75.2 % [facility] HEMATOCRIT 31.3(L) 36.0 - 46.0 % [facility] PLATELETS 220 140 - 440 K/ul [facility] EOSINOPHILS 6.7 0.0 - 7.0 % [facility] EOSINOPHIL ABSOLUTE 0.5 0.0 - 0.7 K/ul [facility] RBC 3.81(L) 4.20 - 5.40 Mil/ul [facility] MCHC 30.7 30.0 - 35.0 g/dL [facility] LYMPHOCYTES 19.6(L) 24.0 - 44.0 % [facility] Blood specimen (specimen) 11/15/2007 5:03 AM CDT 11/15/2007 6:00 AM CDT Angel Rene DO HEMATOLOGY ORDERABLES Mercedes l Result Performing Organization Address [facility] de Phone Number [facility] [address] [place] [address] * MAGNESIUM LEVEL (11/14/2007 4:21 AM CDT) MAGNESIUM 1.9 1.7 - 2.4 mg/dL [facility] Blood specimen (specimen) 11/14/2007 4:21 AM CDT 11/14/2007 4:43 AM CDT Angel Rene DO CHEMISTRY ORDERABLES Final Result Performing Organization Address [facility] Phone Number [facility] [address] [place] [address] * (ABNORMAL) BASIC METABOLIC PANEL (11/14/2007 4:21 AM CDT) CREATININE 0.5(L) 0.7 - 1.2 mg/dL [facility] CALCIUM 8.2(L) 8.4 - 10.5 mg/dL [facility] GLUCOSE 113(H) 70 - 110 mg/dL [facility] CHLORIDE 110 95 - 110 mEq/L [facility] SODIUM 139 136 - 145 mEq/L [facility] ANION GAP 10 9 - 20 mEq/L [facility] BUN 4(L) 7 - 17 mg/dL [facility] CO2 23 22 - 32 mmol/l [facility] OSMOLALITY, CALCULATED 284 275 - 295 mOsm/Kg [facility] POTASSIUM 4.0 3.5 - 5.0 mEq/L [facility] Blood specimen (specimen) 11/14/2007 4:21 AM CDT 11/14/2007 4:43 AM CDT Angel Rene DO CHEMISTRY ORDERABLES Final Result [facility] [address] [place] [address] * (ABNORMAL) CBC WITH DIFFERENTIAL (11/14/2007 4:21 AM CDT) RBC 3.84(L) 4.20 - 5.40 Mil/ul [facility] MCHC 30.7 30.0 - 35.0 g/dL [facility] MONOCYTE ABSOLUTE 0.6 0.1 - 0.6 K/ul [facility] LYMPHOCYTES 31.5 24.0 - 44.0 % [facility] MCV 81.5(L) 84.0 - 103.0 Fl [facility] NEUTROPHIL ABSOLUTE 2.4 2.0 - 8.0 K/ul [facility] MPV 10.3 8.9 - 12.8 Fl [facility] HEMOGLOBIN 9.6(L) 12.0 - 16.0 g/dL [facility] MONOCYTES 11.6(H) 2.0 - 10.0 % [facility] RDW 14.8(H) 11.0 - 14.5 % [facility] EOSINOPHIL ABSOLUTE 0.4 0.0 - 0.7 K/ul [facility] WBC 5.0 4.5 - 11.0 K/ul [facility] NEUTROPHILS 48.7 42.2 - 75.2 % [facility] MCH 25.0(L) 27.0 - 34.0 pg [facility] LYMPHOCYTE ABSOLUTE 1.6 1.2 - 4.0 K/ul [facility] HEMATOCRIT 31.3(L) 36.0 - 46.0 % [facility] PLATELETS 217 140 - 440 K/ul [facility] EOSINOPHILS 8.2(H) 0.0 - 7.0 % [facility] Blood specimen (specimen) 11/14/2007 4:21 AM CDT 11/14/2007 4:43 AM CDT us Angel Rene DO HEMATOLOGY ORDERABLES Mercedes l Result [facility] [place] [address] [address] * CT ABDOMEN PELVIS W CONTRAST (11/13/2007 [...] in stool Postgastric surgery syndromes Other emphysema Paralytic ileus (CMS/HCC) Paralytic ileus Tobacco use disorder Acquired absence of organ, stomach Personal history of peptic ulcer disease Anemia, unspecified Acquired absence of intestine (large) (small) documented in this encounter Care Teams Visiting Teacher Relationship Specialty Start Date End Date Non-Staff, Physician NO ADDRESS ON FILE PCP - General 07/02/07 documented as of this encounter
--- OUTSIDE RECORDS SUMMARY | 2025-05-03 15:32 | XMS_ITS | Encounter Summary ---
Author Organization [facility] Address [address] [place] [address] Care Team Providers Care Laborer Airport Maintenance Name Role Phone Non-Staff, Physician Primary Care Provider Unava ilable Encounter Details Date Type Department Care Team (Late st Contact Info) Description 07/28/2007 Outpatient Historical [facility] [address] [place] [address] AMBULANCE, [facility] Social History Tobacco Use Types Packs/Day Years Used Date Smoking Tobacco: Never Assessed Comments Unknown Sex and Gender Information Value Date Recorded Sex Assigned at Not on file Legal Sex Female 6:52 AM GALLERY OR MUSEUM ATTENDANT Gender Identity Not on file Sexual Orientation Not on file documented as of this encounter Plan of Treatment Not on file documented as of this encounter Visit Diagnoses Not on filedocumented in this encounter Care Teams Laborer Airport Maintenance Relationship Specialty Start Date End Date Non-Staff, Physician NO ADDRESS ON FILE PCP - General 07/02/07 documented as of this encounter
--- OUTSIDE RECORDS SUMMARY | 2025-05-03 15:32 | XMS_ITS | Encounter Summary ---
Author Organization [facility] Address [address] [place] [address] Care Team Providers Care Engineered Wood Designer Name Role Phone Non-Staff, Physician Primary Care Provider Unava ilable Encounter Details Date Type Department Care Team (Late st Contact Info) Description 07/25/2007 Emergency [facility] Emergency Department [address] [place] [address] Ed, Physician NO ADDRESS ON FILE Marissa Hardin MD NO ADDRESS ON FILE Social History Tobacco Use Types Packs/Day Years Used Date Smoking Tobacco: Never Assessed Comments Unknown Sex and Gender Information Value Date Recorded Sex Assigned at Not on file Legal Sex Female 6:52 AM WATER PUMPER Gender Identity Not on file Sexual Orientation Not on file documented as of this encounter Plan of Treatment Not on file documented as of this encounter Visit Diagnoses Not on filedocumented in this encounter Care Teams Engineered Wood Designer Relationship Specialty Start Date End Date Non-Staff, Physician NO ADDRESS ON FILE PCP - General 07/02/07 documented as of this encounter
--- OUTSIDE RECORDS SUMMARY | 2025-05-03 15:32 | XMS_ITS | Encounter Summary ---
Author Organization [facility] Address [address] [place] [address] Care Team Providers Care Projection Printer Name Role Phone Non-Staff, Physician Primary Care Provider Unava ilable Encounter Details Date Type Department Care Team (Late st Contact Info) Description 11/13/2007 Outpatient Historical [facility] [address] [place] [address] AMBULANCE, [facility] AMBULANCE, [facility] Social History Tobacco Use Types Packs/Day Years Used Date Smoking Tobacco: Never Assessed Comments Unknown Sex and Gender Information Value Date Recorded Sex Assigned at Not on file Legal Sex Female 6:52 AM NON LICENSED NUCLEAR EQUIPMENT OPERATOR Gender Identity Not on file Sexual Orientation Not on file documented as of this encounter Plan of Treatment Not on file documented as of this encounter Visit Diagnoses Not on filedocumented in this encounter Care Teams Projection Printer Relationship Specialty Start Date End Date Non-Staff, Physician NO ADDRESS ON FILE PCP - General 07/02/07 documented as of this encounter
--- OUTSIDE RECORDS SUMMARY | 2025-05-03 15:32 | XMS_ITS | Encounter Summary ---
Author Organization [facility] Address [address] [place] [address] Care Team Providers Care Logistics Operations Manager Name Role Phone Non-Staff, Physician Primary Care Provider Unava ilable Encounter Details Date Type Department Care Team (Late st Contact Info) Description 07/28/2007 Outpatient Historical [facility] [address] [place] [address] AMBULANCE, [facility] Unspecified Asthma; Encounter for Long-Term [...] on file Legal Sex Female 6:52 AM GEAR GRINDING MACHINE OPERATOR Gender Identity Not on file Sexual [...] agent documented in this encounter Care Teams Logistics Operations Manager Relationship Specialty Start Date End Date Non-Staff, Physician NO ADDRESS ON FILE PCP - General 07/02/07 documented as of this encounter
--- OUTSIDE RECORDS SUMMARY | 2025-05-03 15:32 | XMS_ITS | Encounter Summary ---
Author Organization [facility] Address [address] [place] [address] Care Team Providers Care Sales Floor Manager Name Role Phone Non-Staff, Physician Primary Care Provider Unava ilable Encounter Details Date Type Department Care Team (Late st Contact Info) Description 07/27/2007 Emergency [facility] Emergency Department [address] [place] [address] Ed, Physician NO ADDRESS ON FILE Justen Lipscomb MD NO ADDRESS ON FILE Social History Tobacco Use Types Packs/Day Years Used Date Smoking Tobacco: Never Assessed Comments Unknown Sex and Gender Information Value Date Recorded Sex Assigned at Not on file Legal Sex Female 6:52 AM DRAFTER (CAD) ELECTRICAL Gender Identity Not on file Sexual Orientation Not on file documented as of this encounter Plan of Treatment Not on file documented as of this encounter Visit Diagnoses Not on filedocumented in this encounter Care Teams Sales Floor Manager Relationship Specialty Start Date End Date Non-Staff, Physician NO ADDRESS ON FILE PCP - General 07/02/07 documented as of this encounter
--- NOTE | 2025-05-03 15:49 | W.ED.CHESTPA ---
HPI - Chest Pain General: Chief Complaint: ER Hold Stated Complaint: chest pain Time Seen by Provider: 05/03/25 15:29 History of Present Illness: 60-year-old female who presents to the emergency room with complaint of chest pain. Had chest pain today she did have nitro earlier with mild relief of chest pain. She has had intermittent chest pain while at rest on and off for a month now. Pain is associated with exertion as well. Known history of coronary artery disease. Patient also has a history of former heavy alcohol use. Patient had a near syncopal episode today when she got lightheaded and dizzy with a rapid heart rate and worsening chest discomfort. Associated symptoms: Deny abdominal pain, dyspnea or fever(s) Related Data Home Medications ?Medication ?Instructions ?Recorded ?Confirmed nitroglycerin 0.4 mg sublingual 0.4 mg sublingual Q5M PRN Chest 07/16/23 05/04/25 tablet (Nitrostat) Pain nfmokbw-rorwzqtzeopgd-biqksyok 250 2 tab PO Q6H PRN Pain 07/07/24 05/04/25 mg-250 mg-65 mg tablet (Excedrin Extra Strength) cholecalciferol (vitamin D3) 50 2,000 unit PO DAILY 05/04/25 05/04/25 mcg (2,000 unit) capsule (Vitamin D3) Previous Rx's ?Medication ?Instructions ?Recorded tizanidine 2 mg tablet 2 mg PO Q6H PRN Spasms 14 days #30 05/18/24 tabs nitroglycerin 0.4 mg sublingual 0.4 mg sublingual Q5M PRN Chest 05/04/25 tablet Pain 30 days #30 tabs pantoprazole 40 mg tablet,delayed 40 mg PO BID 30 days #60 tabs 05/04/25 release (Protonix) sucralfate 1 gram tablet (Carafate) 1 g PO BID 4 weeks #56 tabs 05/04/25 Allergies Allergy/AdvReac Type Severity Reaction Status Date / Time diphenhydramine (From Allergy Unknown Verified 07/25/24 12:48 Benadryl) hydromorphone (From Dilaudid) Allergy ADR-Vomitin Verified 07/25/24 12:48 g ibuprofen (From Motrin) Allergy ALGY-Anaphy Verified 07/25/24 12:48 laxis Penicillins Allergy ALGY-Anaphy Verified 07/25/24 12:48 laxis tramadol Allergy Unknown Verified 07/25/24 12:48 Review of Systems Const: Denies: fever(s) or chills Card: Reports: chest pain Resp: Denies: dyspnea GI: Denies: abdominal pain : Denies: dysuria, urinary frequency or urinary urgency Musc: Denies: neck pain or back pain Skin/Breast: Denies: rash PFSH ED PFSH: Medical History HTN (hypertension) Atherosclerotic heart disease of [place] coronary artery with other forms of angina pectoris Other chest pain Small bowel obstruction Microcytic anemia Leukocytosis Dyslipidemia Nondisplaced fracture of fifth right metatarsal bone Fracture of fourth metatarsal bone of right foot SOB (shortness of breath) Hx of COPD, 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,quit in 2000 Metatarsal bone fracture Dysphagia Weight loss Peripheral neuropathy Abnormal EKG GERD (gastroesophageal reflux disease) Benign essential hypertension with target blood pressure below 140/90 Bradycardia AV block, 2nd degree Recurrent vomiting Nausea and vomiting Elevated blood pressure reading Unstable angina Chest pain Palpitations Chest pain Emphysema of lung Quit in 2019 Chronic migraine without aura, intractable, with status migrainosus Surgical History Status post colon resection H/O colonoscopy History of surgery ULCERS AND PART OF STOMACH REMOVED History of colon resection History of hysterectomy History of appendectomy History of cholecystectomy Family History Mother CAD (coronary artery disease), Onset Age: 50 Cancer Lung disease Stroke Denies family history of Diabetes Clotting disorder Dementia Chronic kidney disease (CKD) Suicide Anesthesia complication Bleeding disorder Social History Smoking and tobacco/nicotine status: unknown if used tobacco/nicotine Alcohol intake: former Substance/Drug Use: never Physical Exam Const: GENERAL APPEARANCE: cooperative ORIENTATION/CONSCIOUSNESS: Yes awake, Yes oriented to person, Yes oriented to place and Yes oriented to time HENMT: COMMON NORMALS: normocephalic, atraumatic and hearing grossly normal bilaterally HEAD & SCALP: normocephalic and atraumatic Resp: COMMON NORMALS: normal respiratory effort, No retractions, No use of accessory muscles and clear to auscultation bilaterally AUSCULTATION: clear to auscultation bilaterally Cardio: COMMON NORMALS: regular rate, regular rhythm and No murmurs present (Cardio) RATE: regular rate RHYTHM: regular rhythm GI: COMMON NORMALS: Soft to palpation and No hepatosplenomegaly present AUSCULTATION: Yes normoactive bowel sounds PALPATION: Yes Soft to palpation, No Tenderness to palpation present (GI), No Guarding due to palpation present (GI) and Yes No hepatosplenomegaly present Extremity: COMMON NORMALS: normal to inspection, capillary refill normal, no clubbing, cyanosis or edema, no calf tenderness and no pedal edema Neuro: SENSORIUM/ORIENTATION: Yes oriented to person, Yes oriented to place and Yes oriented to time Skin: COMMON NORMALS: no rashes or lesions noted GENERAL SKIN EXAM: no rashes or lesions noted Course Vital Signs: Vital signs: Vital Signs Temperature 98.4 F 05/05/25 11:54 Pulse Rate 84 05/05/25 14:23 Respiratory Rate 18 05/05/25 14:23 Blood Pressure 128/72 05/05/25 14:23 Pulse Oximetry 96 05/05/25 14:23 Oxygen Delivery Me thod Room Air 05/05/25 11:54 MDM - Chest Pain Medical Decision Making ST depression present initially with tachycardia resolved after Nitropaste applied. Patient's chest pain has improved. Labs reviewed troponins are normal however patient has dynamic EKG changes and history of heart disease. Discussed with hospitalist will admit cardiac consultation. Heart score of 6. Medical Records I reviewed the patient's medical records. Lab Data I reviewed the patient's lab results. 05/05/25 03:08 05/05/25 05:05 Radiology Impressions Chest X-Ray 05/03/25 15:29 IMPRESSION: No acute cardiopulmonary process. Chest CTA 05/03/25 20:38 IMPRESSION: No acute findings. Abdomen/Pelvis CT 05/04/25 11:23 IMPRESSION: 1. No acute findings within limitations of a noncontrast exam. 2. Moderate colonic stool/gas, correlate for constipation. 3. Postoperative changes suggestive of partial gastrectomy. This is incompletely evaluated given the lack of intravenous and oral contrast. 4. Additional chronic and incidental/ancillary findings as above. COMMENTS: Consistent with the [employer]'s Incidental Findings Committee white paper (J Am Rossana Radiol 2017): For any incidental adrenal lesion greater than or equal to 1 cm but less than or equal to 4 cm classified in this report as benign, likely benign, or containing fat (including classification as an adenoma or myelolipoma), no follow-up imaging is recommended per consensus recommendations based on imaging criteria. Further lab evaluation could be pursued if warranted based on clinical findings. Liver Ultrasound 05/04/25 13:56 IMPRESSION: Technically difficult study due to bowel gas and patient limitations 1. Prior cholecystectomy. 2. Slightly dilated common bile duct measuring 8 mm likely physiologic postcholecystectomy. 3. Liver is normal in appearance. 4. RIGHT kidney incompletely visualized but no evidence of hydronephrosis. Laboratory Results WBC 3.93 10^3/uL (3.29-11.43) 05/03/25 15:51 RBC 4.16 10^6/uL (3.85-5.65) 05/03/25 15:51 Hgb 9.90 g/dL (11.27-16.99) L 05/03/25 15:51 Hct 32.9 % (36-47) L 05/03/25 15:51 MCV 79.1 fl (85-98) L 05/03/25 15:51 MCH 23.8 pg (27-33) L 05/03/25 15:51 MCHC 30.1 g/dL (30-55) 05/03/25 15:51 RDW 14.7 % (12.1-15.1) 05/03/25 15:51 Plt Count 221 10^3/cmm (157-399) 05/03/25 15:51 MPV 10.2 fL (7.4-10.4) 05/03/25 15:51 Neut % (Auto) 51.4 % 05/03/25 15:51 Lymph % (Auto) 31.0 % 05/03/25 15:51 [place] % (Auto) 10.9 % 05/03/25 15:51 Eos % (Auto) 6.1 % 05/03/25 15:51 Baso % (Auto) 0.3 % 05/03/25 15:51 Neut # (Auto) 2.02 10^3/uL (1.8-7.7) 05/03/25 15:51 Lymph # (Auto) 1.2 10^3/uL (0.8-4.8) 05/03/25 15:51 [place] # (Auto) 0.4 10^3/uL (0.2-0.9) 05/03/25 15:51 Eos # (Auto) 0.2 10^3/uL (0.0-0.8) 05/03/25 15:51 Baso # (Auto) 0.0 10^3/uL (0.0-0.1) 05/03/25 15:51 Nucleated RBC % (auto) 0 % 05/03/25 15:51 Nucleated RBCs # 0.0 /100WBC 05/03/25 15:51 Specimen Type Arterial 05/03/25 16:15 Sample Site Radial, left 05/03/25 16:15 ABG pH 7.44 (7.35-7.45) 05/03/25 16:15 ABG pCO2 37.8 mmHg (35-45) 05/03/25 16:15 ABG pO2 97.2 mmHg (80.0-100.0) 05/03/25 16:15 ABG PO2/FiO2 Ratio 462 05/03/25 16:15 ABG HCO3 25.4 mmol/L (22-26) 05/03/25 16:15 ABG O2 Saturation 96.6 05/03/25 16:15 ABG Base Excess 1.3 mmol/L (-2.0-2.0) 05/03/25 16:15 Lauro Test Pos 05/03/25 16:15 A-a O2 Gradient 0.6 mmHg (5-10) L 05/03/25 16:15 Hematocrit 32.2 % (37-47) L 05/03/25 16:15 Hgb O2 Saturation 95.6 % (95-100) 05/03/25 16:15 Carboxyhemoglobin < 0.3 %THgb (0.4-20.1) L 05/03/25 16:15 Methemoglobin 1.1 % (0.4-1.5) 05/03/25 16:15 Total Hemoglobin 10.5 g/dL (12-16) L 05/03/25 16:15 Sodium 141.0 mmol/L (131-143) 05/03/25 16:15 Potassium 4.6 mmol/L (3.5-5.0) 05/03/25 16:15 Glucose 105.0 mg/dL (70-115) 05/03/25 16:15 Ionized Calcium 1.1 mmol/L (1.1-1.4) 05/03/25 16:15 O2 Delivery Device Room air 05/03/25 16:15 FiO2 21.0 % 05/03/25 16:15 Quality Assurance Auditor ID Gd 05/03/25 16:15 Sodium 142 mmol/L (136-145) 05/03/25 15:51 Potassium 4.5 mmol/L (3.5-5.1) 05/03/25 15:51 Chloride 107 mmol/L (98-107) 05/03/25 15:51 Carbon Dioxide 24 mmol/L (22-29) 05/03/25 15:51 Anion Gap 15.5 (5-19) 05/03/25 15:51 BUN 11 mg/dL (8-23) 05/03/25 15:51 Creatinine 0.5 mg/dL (0.5-0.9) 05/03/25 15:51 GFR Calculation 125.9 mL/min (90-130) 05/03/25 15:51 Glucose 101 mg/dL (65-115) 05/03/25 15:51 Calculated Osmolality 294 mOsm/kg (285-295) 05/03/25 15:51 Calcium 8.5 mg/dL (8.5-10.5) 05/03/25 15:51 Iron 17 ug/dL (37-145) L 05/03/25 15:51 TIBC 423 mcg/dl 05/03/25 15:51 % Saturation 4.0 % (20-50) L 05/03/25 15:51 Unsat Iron Binding 406 ug/dL (112-347) H 05/03/25 15:51 Ferritin 12 ng/mL (15-150) L 05/03/25 15:51 Total Bilirubin 0.2 mg/dL (0.15-1.2) 05/03/25 15:51 AST 19 U/L (0-32) 05/03/25 15:51 ALT 12 U/L (0-33) 05/03/25 15:51 Alkaline Phosphatase 85 U/L (35-105) 05/03/25 15:51 Troponin T Baseline < 6 ng/L (0-10) 05/03/25 15:51 Troponin T 120 Minute < 6.0 ng/L (0-10) 05/03/25 17:43 Delta Troponin T 0 ABS# (0-10) 05/03/25 17:43 Total Protein 6.2 g/dL (6.6-8.7) L 05/03/25 15:51 Albumin 4.1 g/dL (3.5-5.2) 05/03/25 15:51 Globulin 2.1 g/dL (1.3-4.6) 05/03/25 15:51 TSH 4.80 uIU/mL (0.27-4.20) H 05/03/25 15:51 All radiology interpretation(s) finalized by discharge EKG Data EKG 1: Interpretation: EKG 05/03/2025 1530 sinus tachycardia rate of 110 IA interval [address] depression in V3 through V6 as well as inferior leads to 3 and aVF. Compared to EKG 07/07/2024 ST depression is new. EKG 2: Computer generated interpretation: EKG 05/03/2025 1716 sinus rhythm rate of 85 parable [address] depression present previously is no longer present. Rate has normalized, sinus tachycardia no longer present Clincial Decision Support The following clinical decision support tools were used to aid in care of the patient HEART Score -> History: Moderately Suspicious, EKG: Significant ST-deviation, Age: 45-64 yrs, Risk Factors: >/=3 Risk Factors, Troponin: Baseline Trop <16 ng/L. Resulting HEART Score: 6. 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
[2025-05-03 16:16] LABS: Hematocrit 32.9 % (36-47); Hemoglobin 9.90 g/dL (11.27-16.99); Mean Corpuscular HGB Conc 30.1 g/dL (30-55); Mean Corpuscular Hemoglobin 23.8 pg (27-33); Mean Corpuscular Volume 79.1 fl (85-98); Nucleated Red Blood Cells % 0 %; Platelet Count 221 10^3/cmm (157-399); Red Blood Count 4.16 10^6/uL (3.85-5.65); White Blood Count 3.93 10^3/uL (3.29-11.43)
[2025-05-03 16:20] VITALS: BP 145/95; PULSE 91
[2025-05-03] MEDS: nitroglycerin 1 gm/inch oint Pkt 0.5 INCH TOPICAL (16:20)
[2025-05-03 16:31] LABS: ABG PCO2 37.8 mmHg (35-45); ABG PH Result 7.44 (7.35-7.45); Alveolar-Arterial Oxygen Gradi 0.6 mmHg (5-10); Arterial Blood Gas Hematocrit 32.2 % (37-47); Blood Gas Allen Test Pos; Blood Gas Operator Identificat GD; Blood Gas Sample Site Radial, left; Blood Gas Sample Type Arterial; Carboxyhemoglobin < 0.3 %THgb (0.4-20.1); Glucose Level-ABG 105.0 mg/dL (70-115); HCO3 ABG 25.4 mmol/L (22-26); Ionized Calcium Level - ABG 1.1 mmol/L (1.1-1.4); Methemoglobin 1.1 % (0.4-1.5); Oxygen Saturation ABG 96.6; PO2 ABG 97.2 mmHg (80.0-100.0); PO2 FiO2 Ratio Arterial Blood 462; Potassium Level - ABG 4.6 mmol/L (3.5-5.0); Sodium Level - ABG 141.0 mmol/L (131-143)
[2025-05-03 16:45] LABS: Alanine Aminotransferase 12 U/L (0-33); Albumin Level 4.1 g/dL (3.5-5.2); Alkaline Phosphatase 85 U/L (35-105); Anion Gap 15.5 (5-19); Aspartate Amino Transferase 19 U/L (0-32); Blood Urea Nitrogen 11 mg/dL (8-23); Calcium 8.5 mg/dL (8.5-10.5); Carbon Dioxide 24 mmol/L (22-29); Chloride 107 mmol/L (98-107); Creatinine Clr Calc Pharmacy 92.5329; Globulin 2.1 g/dL (1.3-4.6); Glucose 101 mg/dL (65-115); Osmolality Calculated 294 mOsm/kg (285-295); Potassium 4.5 mmol/L (3.5-5.1); Sodium 142 mmol/L (136-145); Total Protein 6.2 g/dL (6.6-8.7)
[2025-05-03 17:08] LABS: Troponin(5th) Baseline < 6 ng/L (0-10)
--- NOTE | 2025-05-03 17:16 | ECG_ITS ---
[facility]: 2025-05-03 Pat Name: Radha Maguire Department: Room: Gender: Female Community Service Specialist: : 1965 Requested By: Narendra Ramírez Order Number: [id number] Emily MD: Shar Lou M.D. Measurements Intervals [place] Rate: 85 P: 68 NM: 123 QRS: 69 QRSD: 77 T: 70 QT: 335 QTc: 400 Interpretive Statements SINUS RHYTHM Compared to ECG 05/03/2025 15:30:05 Sinus tachycardia no longer present ST (T wave) deviation no longer present Electronically Signed On 05-04-2025 08:53:41 CDT by Shar Lou M.D. [email or web address]
[2025-05-03 18:04] VITALS: BP 115/78; PULSE 89; O2SAT 100
[2025-05-03 18:20] LABS: Troponin 5 2HR < 6.0 ng/L (0-10); Troponin 5 2HR Delta 0 ABS# (0-10)
--- NOTE | 2025-05-03 19:32 | PM.HP ---
Providers/Chief Complaint Primary Care Provider: Braden Owen NP Chief Complaint: chest pain History of Present Illness As per the patient and retrospective notes: Radha Maguire is a 60 year old female presented with atypical chest pain that has been there since a month in the mid epigastric region with radiation to the back and sides and worsened over in one day since morning, associated with nausea and vomiting with mild dizziness but no diaphoresis or any syncope or presyncope. the patient described pain as crushing and heaviness with palpitations. the patient also reported having recent on and off LLE that worsens with excessive walking, mild exertional sob but no orthopnea or PND. no headaches or focal neurological deficit, no change in her urinary or bowel habits. ex smoker and quit long time ago. no alcohol or any other drug abuse. Review of Systems General: Reports: 10 or more systems reviewed and unremarkable except in HPI and below Medications/Allergies Home Medications ?Medication ?Instructions ?Recorded ?Confirmed ?Last Taken ?Type nitroglycerin 0.4 mg sublingual 0.4 mg sublingual Q5M PRN Chest 07/16/23 07/25/24 Unknown History tablet (Nitrostat) Pain tizanidine 2 mg tablet 2 mg PO Q6H PRN Spasms 14 days #30 05/18/24 07/25/24 07/07/24 Rx tabs otiaedt-sfyffwoohbjei-wwihbajf 250 2 tab PO Q6H PRN Pain 07/07/24 07/25/24 07/07/24 History mg-250 mg-65 mg tablet (Excedrin Extra Strength) polyethylene glycol 3350 17 gram 17 g PO BID PRN constipation 07/07/24 07/25/24 Unknown History oral powder packet (Miralax) pantoprazole 40 mg tablet,delayed 40 mg PO BID 30 days #60 tabs 07/25/24 07/25/24 Unknown Rx release (Protonix) Allergies Allergy/AdvReac Type Severity Reaction Status Date / Time diphenhydramine (From Allergy Unknown Verified 07/25/24 12:48 Benadryl) hydromorphone (From Dilaudid) Allergy ADR-Vomitin Verified 07/25/24 12:48 g ibuprofen (From Motrin) Allergy ALGY-Anaphy Verified 07/25/24 12:48 laxis Penicillins Allergy ALGY-Anaphy Verified 12/23/24 12:48 laxis tramadol Allergy Unknown Verified 07/25/24 12:48 PFSH Acute PFSH: Medical History (Updated 05/03/25 @ 22:23 by Abigail Elizabeth MD) HTN (hypertension) Atherosclerotic heart disease of [place] coronary artery with other forms of angina pectoris Other chest pain Small bowel obstruction Microcytic anemia Leukocytosis Dyslipidemia Nondisplaced fracture of fifth right metatarsal bone Fracture of fourth metatarsal bone of right foot SOB (shortness of breath) Hx of COPD, 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,quit in 2000 Metatarsal bone fracture Dysphagia Weight loss Peripheral neuropathy Abnormal EKG GERD (gastroesophageal reflux disease) Benign essential hypertension with target blood pressure below 140/90 Bradycardia AV block, 2nd degree Recurrent vomiting Nausea and vomiting Elevated blood pressure reading Unstable angina Chest pain Palpitations Chest pain Emphysema of lung Quit in 2019 Chronic migraine without aura, intractable, with status migrainosus Surgical History Status post colon resection H/O colonoscopy History of surgery ULCERS AND PART OF STOMACH REMOVED History of colon resection History of hysterectomy History of appendectomy History of cholecystectomy Family History Mother CAD (coronary artery disease), Onset Age: 50 Cancer Lung disease Stroke Denies family history of Diabetes Clotting disorder Dementia Chronic kidney disease (CKD) Suicide Anesthesia complication Bleeding disorder Social History Smoking and tobacco/nicotine status: unknown if used tobacco/nicotine Alcohol intake: former Substance/Drug Use: never Vitals/I&O/Wt Last Vital Signs Temp 97.8 F 05/03/25 15:26 Pulse 89 05/03/25 18:04 Resp 18 05/03/25 15:26 BP 115/78 05/03/25 18:04 Pulse Ox 100 05/03/25 18:04 O2 Del Method Room Air 05/03/25 15:26 Weight last 48 hrs Weight 48.988 kg Physical Exam Narrative: General: Alert and oriented, lying comfortably without any distress HEENT: Normocephalic, atraumatic, grossly unremarkable exam Cardio: normal rate rhythm, normal S1-S2 without any murmurs, rubs, or gallops and JVD normal Respiratory: normal vascular breathing on auscultation without any wheezes, stridor, rhonchi GI: Abdomen soft, mild mid-epigastric tenderness, nondistended, normoactive bowel sounds present all 4 quadrants, Neuro: intact cranial nerves motor and sensory and cerebellar/coordination function without any focal neurological deficit Behavior: Appropriate and cooperative Extremities: Adequate palpable pulses, mild trace edema Skin: grossly unremarkable exam Data 05/03/25 15:51 05/03/25 15:51 A&P Assessment and plan 1. Other chest pain: Atypical chest pain cardiology taken on board since the patient had angiogram in 2021 and reported having mild disease. CT angio to rule out pulmonary embolism considering patient having ongoing chest pain and mild shortness of breath. Patient had been loaded with aspirin 324 mg and for stress test tomorrow Continue aspirin and statin Telemetry monitoring Repeat troponins with EKG TSH 2. Iron deficiency anemia: Iron profile Monitor CBC Based on her iron profile result to consider iron replacement Outpatient follow-up for colonoscopy to look for underlying etiology of iron deficiency 3. Diffuse esophageal spasm: Continue on PPI daily Maalox as needed Anticonstipation measures 4. COPD (chronic obstructive pulmonary disease): Ex-smoker currently not in exacerbation DuoNebs as needed for shortness of breath 5. Dyslipidemia: Statins to continue 6. HTN (hypertension): Current blood pressure stable Medication reconciliation, Since could not find any antihypertensive in the medications however patient had hypertension as previous comorbidity documented in the chart. Continue to monitor hemodynamics and to add antihypertensive if medically indicated PDMP PDMP Reviewed: Not Reviewed Attestations Medical Necessity Statement*: Radha Maguire's hospital stay will be less than 2 midnights for ruling out ACS and management of atypical chest pain Time Spent in Patient Care: 16 - 35 minutes (>than 50% of time spent in counselling and/or direct pt care on unit). Other Attestations: Patient condition has been discussed at length with the patient/family, I have independently reviewed the chart labs imaging/diagnostics/EKG. the goals of care and code status with the patient/family/NOK/legal personal financial representative, and documented accordingly. The patient/family has been informed about the current condition and further plan of care. Agreed with the plan of care and understood without any language barrier. 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 Any obvious errors or omissions should be clarified with the author of the document. Coding Level of Care Code Acute Code for Chg Fwd Diagnoses Other chest pain R07.89 Chest pain type: other chest pain Iron deficiency anemia D50.9 Diffuse esophageal spasm K22.4 COPD (chronic obstructive pulmonary disease) J44.9 Dyslipidemia E78.5 HTN (hypertension) I10
[2025-05-03 19:52] VITALS: BP 123/74; PULSE 88; RESP 18; O2SAT 99
[2025-05-03 19:57] LABS: Ferritin 12 ng/mL (15-150); Iron 17 ug/dL (37-145); Thyroid Stimulating Hormone 4.80 uIU/mL (0.27-4.20); Total Iron Binding Capacity 423 mcg/dl; Unsaturated Iron Binding 406 ug/dL (112-347)
--- NOTE | 2025-05-03 20:38 | CTR_ITS ---
PROCEDURE INFORMATION: Exam: CTA Chest With Contrast Exam date and time: 05/03/2025 9:17 PM Age: 60 years old Clinical indication: Pain; Angina pectoris; Additional info: Chest pain, ordered for Dr. Neff TECHNIQUE: Imaging protocol: Computed tomographic angiography of the chest with contrast. Exam focused on the arteries. 3D rendering (Not supervised by radiologist): MIP and/or 3D reconstructed images were created by the technologist. Radiation optimization: All CT scans at this facility use at least one of these dose optimization techniques: automated exposure control; mA and/or kV adjustment per patient size (includes targeted exams where dose is matched to clinical indication); or iterative reconstruction. Contrast material: OMNI 350; Contrast volume: 100 ml; Contrast route: INTRAVENOUS (IV); COMPARISON: CT angio chest PE protcl [id number] 03/20/2022 6:43 PM RADIATION DOSE METRICS: Total DLP (mGy-cm): 150.6 FINDINGS: Pulmonary arteries: No pulmonary emboli. Aorta: Classic branching pattern of the aortic arch with patency of the origins of the great vessels. There is no aortic dissection. There is no aortic aneurysm. Celiac and mesenteric arteries: Limited evaluation of the upper abdomen demonstrates patency of the origins of the celiac, SMA and visualized renal arteries. Status post gastric surgery. Lungs: No focal consolidation or other acute appearing pulmonary opacity. Pleural spaces: No pleural effusion or pneumothorax noted. Heart: There is no cardiomegaly. There is no pericardial effusion. Lymph nodes: No pathologically enlarged lymph nodes (by short axis size criteria). Bones/joints: No acute osseous abnormality. Soft tissues: Unremarkable. CT/CT angio chest PE protcl [id number] IMPRESSION: No acute findings.
--- NOTE | 2025-05-03 21:18 | P.CONIM_ITS ---
Providers/Reason For Consult 2 Consulting Physician/Specialty*: LUDMILA Neff MD/cardiology Reason for Consult*: Patient with chest pain Requesting Physician: Dr. Elizabeth Attending Physician: Abigail Elizabeth MD Primary Care Provider: Braden Owen NP History of Present Illness History of Present Illness Radha Maguire is a 60 year old female is being admitted to the hospital through the emergency room where she presented with complaints of chest pain. This patient apparently has been in her baseline state of health up until this afternoon when she started having sudden onset of pain in the mid substernal region. The pain was moderate to severe intensity. It was a constant steady pain with some waxing and waning. She had some associated shortness of breath. No nausea or vomiting. No sweating or palpitations. She also had some intermittent sharp pains. No fever, chills or cough. No other associated symptoms or radiation of pain. At the time of my examination, patient was still complaining of pain but of lesser intensity. She was given topical nitrates and sublingual nitro. Gave some relief. She has a history of chest pain off and on for many years. In 2021, she had a cardiac catheterization which revealed mild diffuse coronary artery disease. She had a multiple ER visits in the past for various conditions. She has a history of tachycardia, high blood pressure, COPD, GERD, anxiety disorder, excetra. Her EKG showed some nonspecific ST depressions in the anterolateral leads. Apparently she had similar changes in the EKG during the previous ER visits. Review of Systems 2 Narrative: CONSTITUTIONAL: No fever or chills. EYES: No blurring of vision or other visual disturbances lately. ENT: No hoarseness of voice, auditory disturbances or sore throat. CARDIOVASCULAR: As mentioned above. RESPIRATORY: History of COPD GASTROINTESTINAL: No hematemesis or melena. GENITOURINARY: No dysuria or hematuria. INTEGUMENTARY: No skin rashes or history of skin cancer. NEURO: History of anxiety disorder and migraine headache PSYCHIATRIC: No history of psychosis or major depression. HEMATOLOGIC: History of anemia ENDOCRINE: No history of polyuria or polydipsia. MUSCULOSKELETAL: No recent joint pain or swelling. ALLERGY/IMMUNOLOGY: As mentioned above. Medications/Allergies Home Medications ?Medication ?Instructions ?Recorded ?Confirmed ?Last Taken ?Type nitroglycerin 0.4 mg sublingual 0.4 mg sublingual Q5M PRN Chest 07/16/23 07/25/24 Unknown History tablet (Nitrostat) Pain tizanidine 2 mg tablet 2 mg PO Q6H PRN Spasms 14 da ys #30 05/18/24 07/25/24 07/07/24 Rx tabs hppifmb-haktbzmozggdw-wdohnukn 250 2 tab PO Q6H PRN Pa in 07/07/24 07/25/24 07/07/24 History mg-250 mg-65 mg tablet (Excedrin Extra Strength) polyethylene glycol 3350 17 gram 17 g PO BID PRN const ipation 07/07/24 07/25/24 Unknown History oral powder packet (Miralax) pantoprazole 40 mg tablet,delayed 40 mg PO BID 30 days #60 tabs 07/25/24 07/25/24 Unknown Rx release (Protonix) Allergies Allergy/AdvReac Type Severity Reaction Status Date / Time diphenhydramine (From Allergy Unknown Verified 07/25/24 12:48 Benadryl) hydromorphone (From Dilaudid) Allergy ADR-Vomitin Verified 07/25/24 12:48 g ibuprofen (From Motrin) Allergy ALGY-Anaphy Verified 07/25/24 12:48 laxis Penicillins Allergy ALGY-Anaphy Verified 07/25/24 12:48 laxis tramadol Allergy Unknown Verified 07/25/24 12:48 Current Medications Generic Name Dose Route Start Last Admin Trade Name Freq PRN Reason Stop Dose Admin Acetaminophen 650 mg 05/03/25 19:21 05/03/25 19:54 Acetaminophen 325 Mg Tablet PO 650 mg Q6H PRN Administration Mild/Mod Pain Or Temp >/= 101 Enoxaparin Sodium 40 mg 05/03/25 19:30 05/03/25 19:54 Enoxaparin 40 Mg/0.4 Ml Syringe SUBCUT 40 mg Q24H ELISABETH Administration PFSH Acute 2 PFSH: Medical History Atherosclerotic heart disease of [place] coronary artery with other forms of angina pectoris Chest pain, unspecified type Small bowel obstruction Microcytic anemia Leukocytosis Dyslipidemia Nondisplaced fracture of fifth right metatarsal bone Fracture of fourth metatarsal bone of right foot SOB (shortness of breath) Hx of COPD, 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,quit in 2000 Metatarsal bone fracture Dysphagia Weight loss Peripheral neuropathy Abnormal EKG GERD (gastroesophageal reflux disease) Benign essential hypertension with target blood pressure below 140/90 Bradycardia AV block, 2nd degree Recurrent vomiting HTN (hypertension) Nausea and vomiting Elevated blood pressure reading Unstable angina Chest pain Palpitations Chest pain Emphysema of lung Quit in 2019 Chronic migraine without aura, intractable, with status migrainosus Surgical History Status post colon resection H/O colonoscopy History of surgery ULCERS AND PART OF STOMACH REMOVED History of colon resection History of hysterectomy History of appendectomy History of cholecystectomy Family History Mother CAD (coronary artery disease), Onset Age: 50 Cancer Lung disease Stroke Denies family history of Diabetes Clotting disorder Dementia Chronic kidney disease (CKD) Suicide Anesthesia complication Bleeding disorder Social History Smoking and tobacco/nicotine status: unknown if used tobacco/nicotine Alcohol intake: former Substance/Drug Use: never Vitals/I&O/Wt Last Vital Signs Temp 97.8 F 05/03/25 15:26 Pulse 88 05/03/25 19:52 Resp 18 05/03/25 19:52 BP 123/74 05/03/25 19:52 Pulse Ox 99 05/03/25 19:52 O2 Del Method Room Air 05/03/25 15:26 Weight last 48 hrs Weight 108 lb Physical Exam 2 Narrative: GENERAL: The patient is alert and oriented times three. Not in any acute distress. HEENT: No significant pallor, icterus or lymphadenopathy.Oral cavity: There are no mucous membrane lesions. NECK: Trachea appears to be central. No masses noted. No JVD or thyromegaly appreciated. RESPIRATORY: Chest is symmetrical. No intercostals muscle retraction or any accessory muscle activation. There is no chest wall tenderness. Breath sounds are heard bilaterally. No rales or rhonchi heard. No evidence of any consolidation. BREASTS: Deferred. HEART: The heart sounds are normal. No S3 or S4. No significant murmurs. No pericardial rub ABDOMEN: No vessel pulsations or distention. No tenderness. No organomegaly appreciated. Bowel sounds are normally heard. : Deferred. RECTAL: Deferred. LYMPHATIC: No lymphadenopathy noted in the neck. EXTREMITIES: No edema or cyanosis. No clubbing. MUSCULOSKELETAL: No acute joint deformities or swelling SKIN: There are no significant rashes or ecchymosis NEUROPSYCHIATRIC: The patient is alert and oriented x3. Appears to be in a good mood. No tremors or rigidity noted. Data 05/03/25 15:51 05/03/25 15:51 Other Labs: Laboratory Last Values WBC 3.93 10^3/uL (3.29-11.43) 05/03/25 15:51 RBC 4.16 10^6/uL (3.85-5.65) 05/03/25 15:51 Hgb 9.90 g/dL (11.27-16.99) L 05/03/25 15:51 Hct 32.9 % (36-47) L 05/03/25 15:51 MCV 79.1 fl (85-98) L 05/03/25 15:51 MCH 23.8 pg (27-33) L 05/03/25 15:51 MCHC 30.1 g/dL (30-55) 05/03/25 15:51 RDW 14.7 % (12.1-15.1) 05/03/25 15: Plt Count 221 10^3/cmm (157-399) 05/03/25 15:51 MPV 10.2 fL (7.4-10.4) 05/03/25 15:51 Neut % (Auto) 51.4 % 05/03/25 15:51 Lymph % (Auto) 31.0 % 05/03/25 15:51 [place] % (Auto) 10.9 % 05/03/25 15:51 Eos % (Auto) 6.1 % 05/03/25 15:51 Baso % (Auto) 0.3 % 05/03/25 15:51 Neut # (Auto) 2.02 10^3/uL (1.8-7.7) 05/03/25 15:51 Lymph # (Auto) 1.2 10^3/uL (0.8-4.8) 05/03/25 15:51 [place] # (Auto) 0.4 10^3/uL (0.2-0.9) 05/03/25 15:51 Eos # (Auto) 0.2 10^3/uL (0.0-0.8) 05/03/25 15:51 Baso # (Auto) 0.0 10^3/uL (0.0-0.1) 05/03/25 15:51 Nucleated RBC % (auto) 0 % 05/03/25 15:51 Nucleated RBCs # 0.0 /100WBC 05/03/25 15:51 Specimen Type Arterial 05/03/25 16:15 Sample Site Radial, left 05/03/25 16:15 ABG pH 7.44 (7.35-7.45) 05/03/25 16:15 ABG pCO2 37.8 mmHg (35-45) 05/03/25 16:15 ABG pO2 97.2 mmHg (80.0-100.0) 05/03/25 16:15 ABG PO2/FiO2 Ratio 462 05/03/25 16:15 ABG HCO3 25.4 mmol/L (22-26) 05/03/25 16:15 ABG O2 Saturation 96.6 05/03/25 16:15 ABG Base Excess 1.3 mmol/L (-2.0-2.0) 05/03/25 16:15 Lauro Test Pos 05/03/25 16:15 A-a O2 Gradient 0.6 mmHg (5-10) L 05/03/25 16:15 Hematocrit 32.2 % (37-47) L 05/03/25 16:15 Hgb O2 Saturation 95.6 % (95-100) 05/03/25 16:15 Carboxyhemoglobin < 0.3 %THgb (0.4-20.1) L 05/03/25 16:15 Methemoglobin 1.1 % (0.4-1.5) 05/03/25 16:15 Total Hemoglobin 10.5 g/dL (12-16) L 05/03/25 16:15 Sodium 141.0 mmol/L (131-143) 05/03/25 16:15 Potassium 4.6 mmol/L (3.5-5.0) 05/03/25 16:15 Glucose 105.0 mg/dL (70-115) 05/03/25 16:15 Ionized Calcium 1.1 mmol/L (1.1-1.4) 05/03/25 16:15 O2 Delivery Device Room air 05/03/25 16:15 FiO2 21.0 % 05/03/25 16:15 Sustainability Manager ID Gd 05/03/25 16:15 Sodium 142 mmol/L (136-145) 05/03/25 15:51 Potassium 4.5 mmol/L (3.5-5.1) 05/03/25 15:51 Chloride 107 mmol/L (98-107) 05/03/25 15:51 Carbon Dioxide 24 mmol/L (22-29) 05/03/25 15:51 Anion Gap 15.5 (5-19) 05/03/25 15:51 BUN 11 mg/dL (8-23) 05/03/25 15:51 Creatinine 0.5 mg/dL (0.5-0.9) 05/03/25 15:51 GFR Calculation 125.9 mL/min (90-130) 05/03/25 15:51 Glucose 101 mg/dL (65-115) 05/03/25 15:51 Calculated Osmolality 294 mOsm/kg (285-295) 05/03/25 15:51 Calcium 8.5 mg/dL (8.5-10.5) 05/03/25 15:51 Iron 17 ug/dL (37-145) L 05/03/25 15:51 TIBC 423 mcg/dl 05/03/25 15:51 % Saturation 4.0 % (20-50) L 05/03/25 15:51 Unsat Iron Binding 406 ug/dL (112-347) H 05/03/25 15:51 Ferritin 12 ng/mL (15-150) L 05/03/25 15:51 Total Bilirubin 0.2 mg/dL (0.15-1.2) 05/03/25 15:51 AST 19 U/L (0-32) 05/03/25 15:51 ALT 12 U/L (0-33) 05/03/25 15:51 Alkaline Phosphatase 85 U/L (35-105) 05/03/25 15:51 Troponin T Baseline < 6 ng/L (0-10) 05/03/25 15:51 Troponin T 120 Minute < 6.0 ng/L (0-10) 05/03/25 17:43 Delta Troponin T 0 ABS# (0-10) 05/03/25 17:43 Total Protein 6.2 g/dL (6.6-8.7) L 05/03/25 15:51 Albumin 4.1 g/dL (3.5-5.2) 05/03/25 15:51 Globulin 2.1 g/dL (1.3-4.6) 05/03/25 15:51 TSH 4.80 uIU/mL (0.27-4.20) H 05/03/25 15:51 Other data: EKG from today revealed sinus rhythm with less than [address] depressions in the anterolateral and inferior leads Repeat EKG with a slower heart rate shows resolution of these changes. Apparently the patient had similar EKG findings in the past A&P Assessment and plan 1. Chest pain, unspecified type: The etiology of the patient's chest pain is not clear. Possibility of pulmonary embolism is a consideration especially in view of the persistent pain. Coronary ischemia causing this cannot be excluded. Apparently she had a similar EKG changes in the past. 2. Atherosclerotic heart disease of [place] coronary artery with other forms of angina pectoris: Patient was found to have mild diffuse coronary disease by angiogram in 2021. Possibility of progression of disease is a consideration. 3. Dyslipidemia: May continue on the current management 4. Elevated blood pressure reading: Currently the blood pressure seems to be in the normal range 5. Iron deficiency anemia, unspecified iron deficiency anemia type: Apparently the patient is known to have chronic anemia. Evaluation and management as per the primary. Plan: A CTA of the chest would be appropriate rule out PE. Once the pulmonary embolism is ruled out, consider doing a Myocardial perfusion imaging to evaluate for any underlying coronary ischemia. Based on the patient's clinical progress and the results of the above, further recommendations will be made. Thank you for the opportunity to evaluate this patient and make these recommendations PDMP PDMP Reviewed: Not Reviewed Coding Level of Care Code 01978 Diagnoses Chest pain, unspecified type R07.9 Chest pain type: unspecified Atherosclerotic heart disease of [place] coronary artery with other forms of angina pectoris I25.118 Dyslipidemia E78.5 Elevated blood pressure reading R03.0 Iron deficiency anemia, unspecified iron deficiency anemia type D50.9 Iron deficiency anemia type: unspecified iron deficiency
[2025-05-03] MEDS: iohexol 350 mg/mL 500 mL Btl (per mL) IV (21:20)
--- NOTE | 2025-05-03 21:29 | ECG_ITS ---
[facility] Date: 2025-[facility]-03 Pat Name: Radha Maguire Department: Room: EDIP Gender: Female Molder Offbearer: : 1965 Requested By: Narendra Ramírez Order Number: [id number] Emily MD: Shar Lou M.D. Measurements Intervals [place] Rate: 106 P: 79 VA: 122 QRS: 79 QRSD: 93 T: 81 QT: 311 QTc: 414 Interpretive Statements SINUS TACHYCARDIA INCOMPLETE RIGHT BUNDLE BRANCH BLOCK [90+ ms QRS DURATION, TERMINAL R IN V1/V2, 40+ ms S IN I/aVL/V4/V5/V6] Compared to ECG 05/03/2025 17:16:43 Incomplete right bundle-branch block now present Sinus rhythm no longer present Electronically Signed On 05-04-2025 08:51:20 CDT by Shar Lou M.D. [email or web address] [id number]
[2025-05-03 22:32] LABS: Troponin 5 6HR < 6.0 ng/L (0-10); Troponin 5 6HR Delta 0 ng/L (0-12)
[2025-05-03 22:56] VITALS: BP 128/72; PULSE 87; RESP 16; O2SAT 99
[2025-05-03 23:19] VITALS: RESP 16; O2SAT 99
[2025-05-03] MEDS: morphine 4 mg/mL SDV 1 mL IVP (23:19)
[2025-05-04] VITALS (12 sets, daily range): BP systolic 91–144; BP diastolic 52–96; PULSE 72–98; RESP 16–24; TEMP 36.7–36.8; O2SAT 95–100; BMI 18.6
--- NOTE | 2025-05-04 | ECG_ITS ---
[facility] Test Date: 2025-05-04 Pat Name: Radha Maguire Department: Room: 112 Gender: Female Milk Treater: : 1965 Requested By: Abigail Elizabeth Order Number: [id number] Emily MD: Meño Neff M.D. Interpretive Statements Lung unchanged pre/post procedure; Intraprocedure shortess of breath; Symptoms resoled by discharge PROCEDURE: At the baseline, the EKG revealed normal sinus rhythm with normal ST Ts.. The baseline heart was patient denies any fever, chills or cough. Bpm with a blood pressue of 94/57 mm of Hg Lexiscan was infused over a period of 20 seconds. A total of 0.4 milligrams of Lexiscan was infused. The stress phase was continued for a total of 5 minutes. Heart rate at the end of the stress phase was 112 bpm with a blood pressure 137/78 mm of Hg. The EKG at the peak infusion revealed some nonspecific ST-T. Sestamibi was injected 20 seconds after the Lexiscan infusion. Heart rate at the end of the recovery phase was 98 bpm with a blood pressure of 118/60 mm of Hg. CONCLUSION: 1. Nonspecific EKG changes with the LexiScan infusion 2. No LexiScan induced chest pain or cardiac arrhythmia 3. Normal blood pressure and heart rate response 4. Sestamibi/sestamibi perfusion scan pending; see separate report. Electronically Signed On 05-07-2025 20:55:29 CDT by Meño Neff M.D. [email or web address] [id number]
[2025-05-04] MEDS: morphine 4 mg/mL SDV 1 mL IVP ×2 (03:39→08:45)
[2025-05-04 04:20] LABS: Alanine Aminotransferase 22 U/L (0-33); Albumin Level 4.0 g/dL (3.5-5.2); Alkaline Phosphatase 95 U/L (35-105); Anion Gap 15.4 (5-19); Aspartate Amino Transferase 39 U/L (0-32); Blood Urea Nitrogen 10 mg/dL (8-23); Calcium 8.7 mg/dL (8.5-10.5); Carbon Dioxide 24 mmol/L (22-29); Chloride 104 mmol/L (98-107); Creatinine Clr Calc Pharmacy 92.5329; Globulin 2.3 g/dL (1.3-4.6); Glucose 102 mg/dL (65-115); Magnesium 2.0 mg/dL (1.7-2.3); Osmolality Calculated 287 mOsm/kg (285-295); Potassium 4.4 mmol/L (3.5-5.1); Sodium 139 mmol/L (136-145); Total Protein 6.3 g/dL (6.6-8.7)
[2025-05-04] MEDS: ondansetron 2 mg/ML SDV 2 mL 4 MG IVP ×3 (06:13→08:45)
--- NOTE | 2025-05-04 07:25 | PC.NURSE ---
Patient was stating headache. Nitro paste was removed per patient request.
--- NOTE | 2025-05-04 09:37 | P.PN_ITS ---
Subjective 2 Subjective: The patient is feeling better. Chest pain is improving. Had a CT of the chest to rule out any PE. No acute findings were noted. Medications: Medication Review Details: Home Medications nitroglycerin 0.4 mg sublingual tablet (Nitrostat) 0.4 mg sublingual Q5M PRN Chest Pain 07/16/23 [History Confirmed 07/25/24] tizanidine 2 mg tablet 2 mg PO Q6H PRN Spasms 14 days #30 tabs 05/18/24 [Rx Confirmed 07/25/24] vtayeck-thhhbdkqnawnf-iusjhwaa 250 mg-250 mg-65 mg tablet (Excedrin Extra Strength) 2 tab PO Q6H PRN Pain 07/07/24 [History Confirmed 07/25/24] polyethylene glycol 3350 17 gram oral powder packet (Miralax) 17 g PO BID PRN constipation 07/07/24 [History Confirmed 07/25/24] pantoprazole 40 mg tablet,delayed release (Protonix) 40 mg PO BID 30 days #60 tabs 07/25/24 [Rx Confirmed 07/25/24] Active Medications Acetaminophen (Acetaminophen 325 Mg Tablet) 650 mg PO Q6H PRN PRN Reason: Mild/Mod Pain Or Temp >/= 101 Last Admin: 05/03/25 19:54 Dose: 650 mg Al Hydrox/Mg Hydrox/Simethicone (Qaph-Zdy-Czudrdnrn-Heidi 30 Ml Udc) 15 ml PO Q6H PRN PRN Reason: INDIGESTION Aminophylline (Aminophylline 25 Mg/Ml Sdv 20 Ml) 25 mg IVP Q2M PRN PRN Reason: see dose instructions Stop: 05/05/25 06:50 Aspirin (Aspirin 81 Mg Ec Tablet) 81 mg PO DAILY [facility] Last Admin: 05/04/25 04:08 Dose: 81 mg Atorvastatin Calcium (Atorvastatin 40 Mg Tablet) 40 mg PO BEDTIME [facility] Last Admin: 05/03/25 23:19 Dose: Not Given Bisacodyl (Bisacodyl 5 Mg Tablet) 10 mg PO DAILY PRN; Protocol PRN Reason: Constipation (see protocol) Enoxaparin Sodium (Enoxaparin 40 Mg/0.4 Ml Syringe) 40 mg SUBCUT Q24H [facility] Last Admin: 05/03/25 19:54 Dose: 40 mg Sodium Chloride (Sodium Chloride 0.9%) 1,000 mls @ 100 mls/hr IV .Q10H ELISABETH Last Admin: 05/04/25 03:38 Dose: 100 mls/hr Morphine Sulfate (Morphine 4 Mg/Ml Sdv 1 Ml) 4 mg IVP Q4H PRN PRN Reason: SEVERE PAIN Last Admin: 05/04/25 08:45 Dose: 4 mg Nitroglycerin (Nitroglycerin 0.4 Mg Sublingual Tablet) 0.4 mg SUBLINGUAL Q5M PRN PRN Reason: CHEST PAIN Nitroglycerin (Nitroglycerin 0.4 Mg Sublingual Tablet) 0.4 mg SUBLINGUAL Q5M PRN PRN Reason: CHEST PAIN Stop: 05/05/25 06:50 Ondansetron HCl (Ondansetron 2 Mg/Ml Sdv 2 Ml) 4 mg IVP Q8H PRN PRN Reason: vomiting, or N/V if npo Last Admin: 05/04/25 08:45 Dose: 4 mg Ondansetron HCl (Ondansetron 2 Mg/Ml Sdv 2 Ml) 4 mg IVP Q2M PRN PRN Reason: NAUSEA Last Admin: 05/04/25 07:28 Dose: 4 mg Pantoprazole Sodium (Pantoprazole Dr 40 Mg Tablet) 40 mg PO DAILY ELISABETH Last Admin: 05/04/25 04:08 Dose: 40 mg Tizanidine HCl (Tizanidine 4 Mg Tablet) 2 mg PO Q6H PRN PRN Reason: spasm Last Admin: 05/04/25 08:43 Dose: 2 mg Vitals/I&O/Wt Last Vital Signs Temp 97.8 F 05/03/25 15:26 Pulse 96 05/04/25 07:40 Resp 22 H 05/04/25 05:25 BP 118/62 05/04/25 07:40 Pulse Ox 98 05/04/25 05:25 O2 Del Method Room Air 05/04/25 05:53 Weight last 48 hrs Weight 115 lb 6 oz Weight 108 lb Physical Exam 2 Narrative: GENERAL: The patient is alert and oriented times three. Not in any acute distress. HEENT: No significant pallor, icterus or lymphadenopathy.Oral cavity: There are no mucous membrane lesions. NECK: Trachea appears to be central. No masses noted. No JVD or thyromegaly appreciated. RESPIRATORY: Chest is symmetrical. No intercostals muscle retraction or any accessory muscle activation. There is no chest wall tenderness. Breath sounds are heard bilaterally. No rales or rhonchi heard. No evidence of any consolidation. BREASTS: Deferred. HEART: The heart sounds are normal. No S3 or S4. No significant murmurs. No pericardial rub ABDOMEN: No vessel pulsations or distention. No tenderness. No organomegaly appreciated. Bowel sounds are normally heard. : Deferred. RECTAL: Deferred. LYMPHATIC: No lymphadenopathy noted in the neck. EXTREMITIES: No edema or cyanosis. No clubbing. MUSCULOSKELETAL: No acute joint deformities or swelling SKIN: There are no significant rashes or ecchymosis NEUROPSYCHIATRIC: The patient is alert and oriented x3. Appears to be in a good mood. No tremors or rigidity noted. Data 05/03/25 15:51 05/04/25 03:58 Other Labs: Laboratory Last Values WBC 3.93 10^3/uL (3.29-11.43) 05/03/25 15:51 RBC 4.16 10^6/uL (3.85-5.65) 05/03/25 15:51 Hgb 9.90 g/dL (11.27-16.99) L 05/03/25 15:51 Hct 32.9 % (36-47) L 05/03/25 15:51 MCV 79.1 fl (85-98) L 05/03/25 15:51 MCH 23.8 pg (27-33) L 05/03/25 15:51 MCHC 30.1 g/dL (30-55) 05/03/25 15:51 RDW 14.7 % (12.1-15.1) 05/03/25 15:51 Plt Count 221 10^3/cmm (157-399) 05/03/25 15:51 MPV 10.2 fL (7.4-10.4) 05/03/25 15:51 Neut % (Auto) 51.4 % 05/03/25 15:51 Lymph % (Auto) 31.0 % 05/03/25 15:51 [place] % (Auto) 10.9 % 05/03/25 15:51 Eos % (Auto) 6.1 % 05/03/25 15:51 Baso % (Auto) 0.3 % 05/03/25 15:51 Neut # (Auto) 2.02 10^3/uL (1.8-7.7) 05/03/25 15:51 Lymph # (Auto) 1.2 10^3/uL (0.8-4.8) 05/03/25 15:51 [place] # (Auto) 0.4 10^3/uL (0.2-0.9) 05/03/25 15:51 Eos # (Auto) 0.2 10^3/uL (0.0-0.8) 05/03/25 15:51 Baso # (Auto) 0.0 10^3/uL (0.0-0.1) 05/03/25 15:51 Nucleated RBC % (auto) 0 % 05/03/25 15:51 Nucleated RBCs # 0.0 /100WBC 05/03/25 15:51 Specimen Type Arterial 05/03/25 16:15 Sample Site Radial, left 05/03/25 16:15 ABG pH 7.44 (7.35-7.45) 05/03/25 16:15 ABG pCO2 37.8 mmHg (35-45) 05/03/25 16:15 ABG pO2 97.2 mmHg (80.0-100.0) 05/03/25 16:15 ABG PO2/FiO2 Ratio 462 05/03/25 16:15 ABG HCO3 25.4 mmol/L (22-26) 05/03/25 16:15 ABG O2 Saturation 96.6 05/03/25 16:15 ABG Base Excess 1.3 mmol/L (-2.0-2.0) 05/03/25 16:15 Lauro Test Pos 05/03/25 16:15 A-a O2 Gradient 0.6 mmHg (5-10) L 05/03/25 16:15 Hematocrit 32.2 % (37-47) L 05/03/25 16:15 Hgb O2 Saturation 95.6 % (95-100) 05/03/25 16:15 Carboxyhemoglobin < 0.3 %THgb (0.4-20.1) L 05/03/25 16:15 Methemoglobin 1.1 % (0.4-1.5) 05/03/25 16:15 Total Hemoglobin 10.5 g/dL (12-16) L 05/03/25 16:15 Sodium 141.0 mmol/L (131-143) 05/03/25 16:15 Potassium 4.6 mmol/L (3.5-5.0) 05/03/25 16:15 Glucose 105.0 mg/dL (70-115) 05/03/25 16:15 Ionized Calcium 1.1 mmol/L (1.1-1.4) 05/03/25 16:15 O2 Delivery Device Room air 05/03/25 16:15 FiO2 21.0 % 05/03/25 16:15 Calender Operator Helper ID Gd 05/03/25 16:15 Sodium 139 mmol/L (136-145) 05/04/25 03:58 Potassium 4.4 mmol/L (3.5-5.1) 05/04/25 03:58 Chloride 104 mmol/L (98-107) 05/04/25 03:58 Carbon Dioxide 24 mmol/L (22-29) 05/04/25 03:58 Anion Gap 15.4 (5-19) 05/04/25 03:58 BUN 10 mg/dL (8-23) 05/04/25 03:58 Creatinine 0.5 mg/dL (0.5-0.9) 05/04/25 03:58 GFR Calculation 125.9 mL/min (90-130) 05/04/25 03:58 Glucose 102 mg/dL (65-115) 05/04/25 03:58 Calculated Osmolality 287 mOsm/kg (285-295) 05/04/25 03:58 Calcium 8.7 mg/dL (8.5-10.5) 05/04/25 03:58 Magnesium 2.0 mg/dL (1.7-2.3) 05/04/25 03:58 Iron 17 ug/dL (37-145) L 05/03/25 15:51 TIBC 423 mcg/dl 05/03/25 15:51 % Saturation 4.0 % (20-50) L 05/03/25 15:51 Unsat Iron Binding 406 ug/dL (112-347) H 05/03/25 15:51 Ferritin 12 ng/mL (15-150) L 05/03/25 15:51 Total Bilirubin 0.2 mg/dL (0.15-1.2) 05/04/25 03:58 AST 39 U/L (0-32) H 05/04/25 03:58 ALT 22 U/L (0-33) 05/04/25 03:58 Alkaline Phosphatase 95 U/L (35-105) 05/04/25 03:58 Troponin T Baseline < 6 ng/L (0-10) 05/03/25 15:51 Troponin T 120 Minute < 6.0 ng/L (0-10) 05/03/25 17:43 Delta Troponin T 0 ABS# (0-10) 05/03/25 17:43 Troponin T Hi Sens 6Hr < 6.0 ng/L (0-10) 05/03/25 22:00 Troponin T Hi Sens 6Hr Delta 0 ng/L (0-12) 05/03/25 22:00 Total Protein 6.3 g/dL (6.6-8.7) L 05/04/25 03:58 Albumin 4.0 g/dL (3.5-5.2) 05/04/25 03:58 Globulin 2.3 g/dL (1.3-4.6) 05/04/25 03:58 TSH 4.80 uIU/mL (0.27-4.20) H 05/03/25 15:51 A&P Assessment and plan 1. Chest pain, unspecified type: Patient had a Myocardial perfusion imaging today. She was found to have no evidence of ischemia. The chest pain is most likely noncardiac. GERD is a consideration 2. Atherosclerotic heart disease of [place] coronary artery with other forms of angina pectoris: Patient was found to have mild diffuse coronary disease by angiogram in 2021. No clinical evidence of any Miochol injury or ongoing coronary ischemia 3. Dyslipidemia: May continue on the current management 4. Elevated blood pressure reading: Currently the blood pressure seems to be in the normal range 5. Iron deficiency anemia, unspecified iron deficiency anemia type: Apparently the patient is known to have chronic anemia. Evaluation and management as per the primary. 6. Epigastric abdominal pain: May require a workup Plan: Patient's cardiac status seems to be stable. At this point, I will hold off on any further cardiac workup. GI workup as per the primary PDMP PDMP Reviewed: Not Reviewed Attestations 2 Medical Necessity Statement*: Disposition as per the primary Coding Level of Care Code 96987 Diagnoses Chest pain, unspecified type R07.9 Chest pain type: unspecified Atherosclerotic heart disease of [place] coronary artery with other forms of angina pectoris I25.118 Dyslipidemia E78.5 Elevated blood pressure reading R03.0 Iron deficiency anemia, unspecified iron deficiency anemia type D50.9 Iron deficiency anemia type: unspecified iron deficiency Epigastric abdominal pain R10.13
--- NOTE | 2025-05-04 11:23 | CTR_ITS ---
PROCEDURE INFORMATION: Exam: CT Abdomen And Pelvis Without Contrast Exam date and time: 05/04/2025 12:32 PM Age: 60 years old Clinical indication: Abdominal pain; Epigastric; Prior surgery; Surgery date: 6+ months; Surgery type: --gb, colon resection, appy, hysterectomy, ulcers and partial stomach; HX of colon cancer; Additional info: Epigatsric pain TECHNIQUE: Imaging protocol: Computed tomography of the abdomen and pelvis without contrast. Radiation optimization: All CT scans at this facility use at least one of these dose optimization techniques: automated exposure control; mA and/or kV adjustment per patient size (includes targeted exams where dose is matched to clinical indication); or iterative reconstruction. COMPARISON: CT abdomen pelvis w con* [id number] 07/07/2024 11:47 AM RADIATION DOSE METRICS: Total DLP (mGy-cm): 304.23 FINDINGS: Liver: Unremarkable noncontrast appearance. Gallbladder and biliary ducts: Surgically absent gallbladder. Mildly dilated common duct which can be seen in the post cholecystectomy state. Pancreas: Unremarkable. No ductal dilation. Spleen: Unremarkable. No splenomegaly. Adrenal glands: Left adrenal adenoma, 1.9 cm. Unremarkable right adrenal gland. 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 No hydronephrosis. No calcified urolithiasis. Stomach and bowel: Postoperative changes of the gastroesophageal junction. Postoperative changes of suggested partial gastrectomy. Nondistended bowel loops. Moderate colonic stool and gas. Appendix: Postoperative changes of appendectomy. Intraperitoneal space: No free air. No significant fluid collection. Vasculature: Scattered atherosclerosis. No abdominal aortic aneurysm. Lymph nodes: No pathologically enlarged lymph nodes. Urinary bladder: Opacified with excreted contrast. Reproductive: Suggested tubal ligation. Uterus is absent. Bones/joints: No acute fracture. Soft tissues: Soft tissue gas in the left anterior abdominal wall, correlate for possible injection site. CT/CT abdomen pelvis wo con [id number] IMPRESSION: 1. No acute findings within limitations of a noncontrast exam. 2. Moderate colonic stool/gas, correlate for constipation. 3. Postoperative changes suggestive of partial gastrectomy. This is incompletely evaluated given the lack of intravenous and oral contrast. 4. Additional chronic and incidental/ancillary findings as above. COMMENTS: Consistent with the [employer]'s Incidental Findings Committee white paper (J Am Rossana Radiol 2017): For any incidental adrenal lesion greater than or equal to 1 cm but less than or equal to 4 cm classified in this report as benign, likely benign, or containing fat (including classification as an adenoma or myelolipoma), no follow-up imaging is recommended per consensus recommendations based on imaging criteria. Further lab evaluation could be pursued if warranted based on clinical findings.
[2025-05-04 11:47] LABS: Lipase 18 U/L (13-60)
--- NOTE | 2025-05-04 12:47 | ECG_ITS ---
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 Measurements Intervals [place] Rate: 88 P: 52 CO: 133 QRS: 66 QRSD: 97 T: 61 QT: 365 QTc: 444 Interpretive Statements SINUS RHYTHM INCOMPLETE RIGHT BUNDLE BRANCH BLOCK [90+ ms QRS DURATION, TERMINAL R IN V1/V2, 40+ ms S IN I/aVL/V4/V5/V6] MINIMAL ST DEPRESSION [0.025+ mV ST DEPRESSION] Compared to ECG 05/03/2025 21:35:54 ST (T wave) deviation now present Sinus tachycardia no longer present Electronically Signed On 05-04-2025 18:46:40 CDT by Meño Neff M.D. [email or web address] [id number]
--- NOTE | 2025-05-04 12:47 | USCV_ITS ---
Radha Maguire Age: 60 Gender: F : 1965 Exam Date: 05/04/2025 16:45 Ordering Phys: Stefan Garg MD Technologist: [place] [facility] [place]: syncope Risk Factors: Previous Vascular Surgery: Right Brachial BP: / Left Brachial BP: / Right Left Velocity (cm/s) Spectral Plaque Velocity (cm/s) Spectral Plaque Syst/Diast Broadening Syst/Diast Broadening 103.50/27.10 Prox CCA 95.80 / 25.90 84.10/ 21.50 Mid CCA 88.70 / 28.10 91.50/ 21.50 Distal CCA 87.60 / 27.00 94.10/ 34.50 Prox ICA 114.40/ 40.60 88.90/ 25.40 Mid ICA 134.30/ 51.00 61.50/ 21.30 Distal ICA 74.90 / 29.90 96.60 ECA 60.30 1.00 ICA/CCA 1.30 Antegrade Vertebral Antegrade 70.60/ 21.50 cm/s 62.00/ 18.20 cm/s Tri Subclavian Tri 91.30 86.60 FINDINGS Comparison:. 07/07/24 No significant elevation of systolic or diastolic velocities. Waveforms are normal. Mild carotid atherosclerosis. CONCLUSIONS Bilateral ICA stenosis less than 50%. Mild carotid atherosclerosis. Dr. Amanda Conner DO (Electronically Signed) Final Date: 05 May 2025 13:46 S
[2025-05-04] MEDS: metoclopramide 5 mg/mL SDV 2 mL IVP (13:07)
[2025-05-04] MEDS: pantoprazole 40 mg SDV IVP (13:08)
[2025-05-04 13:21] LABS: Hematocrit 30.5 % (36-47); Hemoglobin 9.30 g/dL (11.27-16.99); Mean Corpuscular HGB Conc 30.5 g/dL (30-55); Mean Corpuscular Hemoglobin 24.0 pg (27-33); Mean Corpuscular Volume 78.6 fl (85-98); Nucleated Red Blood Cells % 0 %; Platelet Count 215 10^3/cmm (157-399); Red Blood Count 3.88 10^6/uL (3.85-5.65); White Blood Count 5.86 10^3/uL (3.29-11.43)
[2025-05-04 13:38] LABS: Alanine Aminotransferase 371 U/L (0-33); Albumin Level 3.9 g/dL (3.5-5.2); Alkaline Phosphatase 216 U/L (35-105); Anion Gap 17.1 (5-19); Aspartate Amino Transferase 581 U/L (0-32); Blood Urea Nitrogen 10 mg/dL (8-23); Calcium 8.5 mg/dL (8.5-10.5); Carbon Dioxide 21 mmol/L (22-29); Chloride 103 mmol/L (98-107); Creatinine Clr Calc Pharmacy 106.7472; Globulin 1.9 g/dL (1.3-4.6); Glucose 149 mg/dL (65-115); Osmolality Calculated 286 mOsm/kg (285-295); Potassium 4.1 mmol/L (3.5-5.1); Sodium 137 mmol/L (136-145); Total Protein 5.8 g/dL (6.6-8.7)
[2025-05-04 13:40] LABS: Lactic Sepsis W/Reflex 1.5 mmol/L (0.5-2.2); Troponin(5th) Baseline < 6 ng/L (0-10)
--- NOTE | 2025-05-04 13:56 | US_ITS ---
WS: [id number] ULTRASOUND ABDOMEN LIMITED CLINICAL INFORMATION: evaluate for transaminitis FINDINGS: Liver Size: Normal. Craniocaudal length: 13.3 cm. Echogenicity: Normal. Surface nodularity: None. Mass (size and location): None. Bile ducts Intrahepatic ducts: Normal. Common bile duct diameter: 0.8 cm. Gallbladder Prior cholecystectomy Pancreas Normal as visualized. Right kidney: Normal as visualized Hydronephrosis: None. Size: 7.9 cm x 3.9 cm x 4.1 cm. Abdominal aorta and IVC Visualized portions are normal. Ascites: None. US/US liver [id number] IMPRESSION: Technically difficult study due to bowel gas and patient limitation s 1. Prior cholecystectomy. 2. Slightly dilated common bile duct measuring 8 mm likely physiologic postcho lecystectomy. 3. Liver is normal in appearance. 4. RIGHT kidney incompletely visualized but no evidence of hydronephrosis.
[2025-05-04 14:41] LABS: Lipase 13 U/L (13-60)
--- NOTE | 2025-05-04 14:46 | ECG_ITS ---
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 Measurements Intervals [place] Rate: 86 P: 64 OR: 135 QRS: 44 QRSD: 91 T: 59 QT: 348 QTc: 417 Interpretive Statements SINUS RHYTHM Compared to ECG 05/04/2025 12:45:40 Incomplete right bundle-branch block no longer present ST (T wave) deviation no longer present Electronically Signed On 05-04-2025 18:57:46 CDT by Meño Neff M.D. [email or web address] [id number]
--- NOTE | 2025-05-04 14:53 | PM.PN ---
Subjective Subjective: - Patient was seen this morning - She reports feeling nauseous, she feels like if she is fartun vomit, no abdominal pain, she is passing gas, no fevers, no chills - She does have some epigastric discomfort, but tells me that she feels so nauseous she cannot tolerate GI cocktail - CT angiogram negative for pulmonary embolism, discussed stress testing this morning - Patient completed stress test, so far low probability - Patient continues to feel nauseous, she has a history of bowel obstruction, history of gastritis, CT scan abdomen pelvis ordered without contrast - On the way back from [place] according to nursing staff Radha passed out, it was brief, had an episode of nausea and vomiting during the episode, rapid response called -Concerns for vasovagal syncope - She was examined as the nursing staff were getting her back into the bed in a wheelchair - She is alert awake she can follow commands she feels very nauseous, nursing staff are wheeling her back to the room -No facial droop, slurring words, no focal weakness, she follows all commands, -Orders placed for IV fluids - She was got back into bed -No facial droop, slurring words, no focal weakness, she follows all commands, -she is normotensive, normal sinus rhythm heart rates in the 80s, EKG no acute ST-T wave changes she had 2 episodes of nausea and vomiting, orders placed for Reglan, Zofran - Reexamine her nausea is more under control remains normotensive, normal sinus rhythm, CT scan abdomen pelvis, no acute findings, patient does not want to try GI cocktail - For acute on chronic anemia with iron deficient anemia patient declines IV Venofer due to side effects - Repeat CBC, CMP, inflammatory markers, - Noted to have transaminitis on blood work, no hyperbilirubinemia ultrasound of the liver ordered Vitals/I&O/Wt Last Vital Signs Temp 98.0 F 05/04/25 08:00 Pulse 83 05/04/25 12:00 Resp 17 05/04/25 12:00 BP 100/61 05/04/25 12:00 Pulse Ox 96 05/04/25 12:00 O2 Del Method Room Air 05/04/25 12:00 Weight last 48 hrs Weight 52.333 kg Weight 48.988 kg Physical Exam Const: COMMON NORMALS: no acute distress and patient oriented x3 Eye: COMMON NORMALS: Equal, round and reactive pupils present and EOMs intact bilaterally PUPIL: Yes Equal, round and reactive pupils present Lymph: LYMPHATIC: no lymphadenopathy noted Resp: COMMON NORMALS: normal respiratory effort, No retractions, No use of accessory muscles and clear to auscultation bilaterally AUSCULTATION: clear to auscultation bilaterally Cardio: COMMON NORMALS: regular rate, regular rhythm, S1 normal heart sound present and S2 normal heart sound present RATE: regular rate RHYTHM: regular rhythm HEART SOUNDS: S1 normal heart sound present and S2 normal heart sound present GI: COMMON NORMALS: Normal to inspection, nondistended, normoactive bowel sounds present and non-tender OTHER: No guarding, no rebound, no rigidity Extremity: COMMON NORMALS: no calf tenderness and no pedal edema Neuro: COMMON NORMALS: patient oriented x3, CN's II-XII intact bilaterally, moves all extremities and no focal motor deficits Psych: COMMON NORMALS: mental status grossly normal Data 05/04/25 13:05 05/04/25 13:05 A&P Assessment and plan 1. Atherosclerotic heart disease of [place] coronary artery with other forms of angina pectoris: Patient was found to have mild diffuse coronary disease by angiogram in 2021. Possibility of progression of disease is a consideration. 2. Dyslipidemia: 3. Elevated blood pressure readin. Iron deficiency anemia, unspecified iron deficiency anemia type: 5. Epigastric abdominal pain: 6. Syncope: 7. Transaminitis: Plan: Transaminitis - Etiology unclear - Potentially shock liver - IV fluids - Monitor LFTs - Right upper quadrant ultrasound Intractable nausea and vomiting - CT scan abdomen pelvis CT/CT abdomen pelvis wo con [id number] IMPRESSION: 1. No acute findings within limitations of a noncontrast exam. 2. Moderate colonic stool/gas, correlate for constipation. 3. Postoperative changes suggestive of partial gastrectomy. This is incompletely evaluated given the lack of intravenous and oral contrast. 4. Additional chronic and incidental/ancillary findings as above. - Keep n.p.o. - IV fluids - Nausea control with Zofran, Reglan - With history of gastric surgery possible gastroparesis? Atypical chest discomfort -CT angiogram of chest negative for PE IMPRESSIONS 1. Myocardial perfusion imaging revealing uniform tracer uptake with no significant perfusion abnormalities 2. Normal LV ejection fraction of 88% 3. LV wall motion analysis revealing no gross wall motion abnormalities. 4. Normal LV volume Low probability for coronary ischemia, based on the above findings Iron deficiency anemia - Protonix, Carafate - Patient declines IV iron - History of gastritis on EGD Syncope - Cardiac echo - Carotid artery ultrasound - Serial EKGs, serial troponins, telemetry monitoring Full code SCDs for DVT prophylaxis, given patient's acute anemia, iron deficiency, history of gastritis PDMP PDMP Reviewed: Last Reviewed 05/04/25 12:01 by Stefan Garg MD Attestations Medical Necessity Statement*: Patient requires hospitalization for transaminitis, intractable nausea vomiting, atypical chest discomfort, iron deficiency, syncope Diagnoses Atherosclerotic heart disease of [place] coronary artery with other forms of angina pectoris I25.118 Dyslipidemia E78.5 Elevated blood pressure reading R03.0 Iron deficiency anemia, unspecified iron deficiency anemia type D50.9 Iron deficiency anemia type: unspecified iron deficiency Epigastric abdominal pain R10.13 Syncope R55 Transaminitis R74.01
[2025-05-04 14:55] LABS: Hepatitis A Antibody IgM Non-Reactive (Nonreactive); Hepatitis B Surface Antigen Non-Reactive (Nonreactive)
[2025-05-04 15:18] LABS: HIV 1 & 2 Antigen Non-Reactive (Non-Reactiv)
[2025-05-04 16:21] LABS: Troponin 5 2HR 6.10 ng/L (0-10); Troponin 5 2HR Delta 0.10001 ABS# (0-10)
--- NOTE | 2025-05-04 16:35 | PC.NURSE ---
Patient urinated in bed and continues to refuse bed change and hygiene. States Don't move me.
[2025-05-04 19:52] LABS: Troponin 5 6HR 6.53 ng/L (0-10); Troponin 5 6HR Delta 0.53001 ng/L (0-12)
--- NOTE | 2025-05-04 21:40 | ECG_ITS ---
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 Measurements Intervals [place] Rate: 76 P: 60 MD: 132 QRS: 65 QRSD: 80 T: 72 QT: 368 QTc: 414 Interpretive Statements SINUS RHYTHM POSSIBLE RIGHT VENTRICULAR CONDUCTION DELAY [RSR (QR) IN V1/V2] Compared to ECG 05/04/2025 14:46:24 No significant changes Electronically Signed On 05-04-2025 23:28:26 CDT by Meño Neff M.D. [email or web address] [id number]
--- NOTE | 2025-05-04 22:36 | NMCV_ITS ---
NM jewels perf SPECT r/s* [id number] Radha Maguire Age: 60 Gender: F : 1965 Exam Date: 05/04/2025 06:38 Ordering Phys: Abigail Elizabeth MD Technologist: CALEB Chung Exam Location: [facility] Indications: CP STRESS TEST Please see separate stress test report in [facility] for full findings IMAGE PROTOCOL Rest/Stress 1 Lexiscan Day Radiopharmaceutical Dose (mCi) Administration Site Administered by Rest: Tc-99m 11 IV Corinne Guardado, BACTERIOLOGIST SOIL Sestamibi Stress:Tc-99m 32.7 IV Corinne Chandlergle, BACTERIOLOGIST SOIL Sestamibi Rest: 04-May-2025 60 Discovery 630 Stress: 04-May-2025 30 Discovery 630 0.4mg Lexiscan. Supine position only as patient was unable to lay prone. SPECT RESULTS Technical Quality: Good Raw Data Analysis: Normal Image Corrections: No attenuation or motion correction applied Summed Stress Score: 0 Summed Rest Score: 0 Summed Difference Score: 0 PERFUSION FINDINGS Fairly uniform myocardial tracer uptake. No significant perfusion normalities FUNCTIONAL RESULTS (calculated via Gated SPECT) Stress Image LV EF (%): 88 Stress EDV (mL):43 TID: 1 Stress ESV (mL):5 FUNCTIONAL FINDINGS: Segmental wall motion analysis revealing no gross wall motion abnormalities IMPRESSIONS 1. Myocardial perfusion imaging revealing uniform tracer uptake with no significant perfusion abnormalities 2. Normal LV ejection fraction of 88% 3. LV wall motion analysis revealing no gross wall motion abnormalities. 4. Normal LV volume Low probability for coronary ischemia, based on the above findings Dr Meño Neff MD FACC (Electronically Signed) Final Date: 04 May 2025 08:55 S
[2025-05-05] VITALS: BP 98/58; PULSE 78; RESP 14; O2SAT 97
[2025-05-05] MEDS: pantoprazole 40 mg SDV IVP (00:57)
[2025-05-05] MEDS: metoclopramide 5 mg/mL SDV 2 mL IVP (01:17)
--- NOTE | 2025-05-05 01:31 | PC.NURSE ---
I went in to administer zanaflex to the patient per her request, Patient sat up to take the medication and began dry heaving and complaining of being extremely hot. During this episode patient vagaled and heart rate dropped into the thirties, with measured 4-5.5 second long pauses. Patient maintained consciousness, I had Lynne RN pull reglan from the xis and it was administered. ICU nurses came over to help with the patient. Fan was given to patient and ice to help her cool down. After reglan was administered patient stopped dry heaving and heart rate returned to sinus rhythm/sinus tachycardia. was notified, and strips were printed. He ordered a GI cocktail that patient refused, otherwise he said that cardiac workups were negative and she has previous medical history of this happening, and to continue to monitor.
[2025-05-05 03:17] LABS: Hematocrit 29.0 % (36-47); Hemoglobin 8.80 g/dL (11.27-16.99); Mean Corpuscular HGB Conc 30.3 g/dL (30-55); Mean Corpuscular Hemoglobin 24.0 pg (27-33); Mean Corpuscular Volume 79.0 fl (85-98); Nucleated Red Blood Cells % 0 %; Platelet Count 226 10^3/cmm (157-399); Red Blood Count 3.67 10^6/uL (3.85-5.65); White Blood Count 5.28 10^3/uL (3.29-11.43)
[2025-05-05] MEDS: ondansetron 2 mg/ML SDV 2 mL 4 MG IVP (03:51)
[2025-05-05 04:00] VITALS: BP 159/91; PULSE 98; RESP 21; O2SAT 97
[2025-05-05 05:37] LABS: Alanine Aminotransferase 292 U/L (0-33); Albumin Level 4.3 g/dL (3.5-5.2); Alkaline Phosphatase 250 U/L (35-105); Anion Gap 22.1 (5-19); Aspartate Amino Transferase 223 U/L (0-32); Blood Urea Nitrogen 8 mg/dL (8-23); Calcium 9.2 mg/dL (8.5-10.5); Carbon Dioxide 21 mmol/L (22-29); Chloride 100 mmol/L (98-107); Creatinine Clr Calc Pharmacy 90.5628; Globulin 2.3 g/dL (1.3-4.6); Glucose 119 mg/dL (65-115); Magnesium 1.9 mg/dL (1.7-2.3); Osmolality Calculated 287 mOsm/kg (285-295); Potassium 4.1 mmol/L (3.5-5.1); Sodium 139 mmol/L (136-145); Total Protein 6.6 g/dL (6.6-8.7)
[2025-05-05 07:46] VITALS: BP 129/74; PULSE 105; RESP 26; TEMP 36.5; O2SAT 94
--- NOTE | 2025-05-05 08:10 | PM.PN ---
Subjective Subjective: This patient apparently has been having episodes of nausea, vomiting and epigastric pain yesterday. She had a CT of the abdomen and pelvis yesterday. While returning from the CT study, she had another episode of nausea and vomiting and a passing out spell- lasted for few secs. The episode was thought to be vasovagal reaction. director meetings today, she again started having nausea and vomiting. During the spell, she was found to be bradycardic and also was found to have episodes of complete heart block with a 4.6 second pause, the longest. The patient apparently has not had any symptoms of dizziness or passing out during the spell. She did not have any chest pain or chest tightness. Never had any syncope in the past She had a Myocardial perfusion imaging yesterday and was found to be unremarkable with no evidence of ischemia Medications: Medication Review Details: Current Medications Acetaminophen (Acetaminophen 325 Mg Tablet) 650 mg PO Q6H PRN PRN Reason: Mild/Mod Pain Or Temp >/= 101 Last Admin: 05/03/25 19:54 Dose: 650 mg Al Hydrox/Mg Hydrox/Simethicone (Qlsr-Fzg-Wbtdbiysh-Heidi 30 Ml Udc) 15 ml PO Q6H PRN PRN Reason: INDIGESTION Aspirin (Aspirin 81 Mg Ec Tablet) 81 mg PO DAILY ELISABETH Last Admin: 05/05/25 04:05 Dose: 81 mg Bisacodyl (Bisacodyl 5 Mg Tablet) 10 mg PO DAILY PRN; Protocol PRN Reason: Constipation (see protocol) Metoclopramide HCl (Metoclopramide 5 Mg/Ml Sdv 2 Ml) 5 mg IVP Q6H PRN PRN Reason: NAUSEA AND VOMITING Last Admin: 05/05/25 01:17 Dose: 5 mg Morphine Sulfate (Morphine 4 Mg/Ml Sdv 1 Ml) 4 mg IVP Q4H PRN PRN Reason: SEVERE PAIN Last Admin: 05/04/25 08:45 Dose: 4 mg Nitroglycerin (Nitroglycerin 0.4 Mg Sublingual Tablet) 0.4 mg SUBLINGUAL Q5M PRN PRN Reason: CHEST PAIN Ondansetron HCl (Ondansetron 2 Mg/Ml Sdv 2 Ml) 4 mg IVP Q8H PRN PRN Reason: vomiting, or N/V if npo Last Admin: 05/05/25 03:51 Dose: 4 mg Ondansetron HCl (Ondansetron 2 Mg/Ml Sdv 2 Ml) 4 mg IVP Q2M PRN PRN Reason: NAUSEA Last Admin: 05/04/25 07:28 Dose: 4 mg Pantoprazole Sodium (Pantoprazole 40 Mg Sdv) 40 mg IVP Q12H ELISABETH Last Admin: 05/05/25 00:57 Dose: 40 mg Sucralfate (Sucralfate 1 Gm/10 Ml Oral Liq Udc) 1 gm PO Q6H ELISABETH Last Admin: 05/05/25 01:50 Dose: Not Given Tizanidine HCl (Tizanidine 4 Mg Tablet) 2 mg PO Q6H PRN PRN Reason: spasm Last Admin: 05/05/25 00:57 Dose: 2 mg Vitals/I&O/Wt Last Vital Signs Temp 97.7 F 05/05/25 07:46 Pulse 105 H 05/05/25 07:46 Resp 26 H 05/05/25 07:46 BP 129/74 05/05/25 07:46 Pulse Ox 94 05/05/25 07:46 O2 Del Method Room Air 05/05/25 07:46 05/04/25 05/05/25 05/05/25 22:59 06:59 14:59 Intake Total 120 / 120 Output Total 0 / 0 Balance 120 / 120 Weight last 48 hrs Weight 121 lb Weight 115 lb 6 oz Weight 108 lb Physical Exam Narrative: GENERAL: The patient is alert and oriented times three. Not in any acute distress. HEENT: No significant pallor, icterus or lymphadenopathy.Oral cavity: There are no mucous membrane lesions. NECK: Trachea appears to be central. No masses noted. No JVD or thyromegaly appreciated. RESPIRATORY: Chest is symmetrical. No intercostals muscle retraction or any accessory muscle activation. There is no chest wall tenderness. Breath sounds are heard bilaterally. No rales or rhonchi heard. No evidence of any consolidation. BREASTS: Deferred. HEART: The heart sounds are normal. No S3 or S4. No significant murmurs. No pericardial rub ABDOMEN: No vessel pulsations or distention. No tenderness. No organomegaly appreciated. Bowel sounds are normally heard. : Deferred. RECTAL: Deferred. LYMPHATIC: No lymphadenopathy noted in the neck. EXTREMITIES: No edema or cyanosis. No clubbing. MUSCULOSKELETAL: No acute joint deformities or swelling SKIN: There are no significant rashes or ecchymosis NEUROPSYCHIATRIC: The patient is alert and oriented x3. Appears to be in a good mood. No tremors or rigidity noted. Data 05/05/25 03:08 05/05/25 05:05 Other Labs: Laboratory Last Values WBC 5.28 10^3/uL (3.29-11.43) 05/05/25 03:08 RBC 3.67 10^6/uL (3.85-5.65) L 05/05/25 03:08 Hgb 8.80 g/dL (11.27-16.99) L 05/05/25 03:08 Hct 29.0 % (36-47) L 05/05/25 03:08 MCV 79.0 fl (85-98) L 05/05/25 03:08 MCH 24.0 pg (27-33) L 05/05/25 03:08 MCHC 30.3 g/dL (30-55) 05/05/25 03:08 RDW 15.0 % (12.1-15.1) 05/05/25 03:08 Plt Count 226 10^3/cmm (157-399) 05/05/25 03:08 MPV 11.1 fL (7.4-10.4) H 05/05/25 03:08 Neut % (Auto) 73.6 % 05/05/25 03:08 Lymph % (Auto) 15.0 % 05/05/25 03:08 [place] % (Auto) 9.1 % 05/05/25 03:08 Eos % (Auto) 1.9 % 05/05/25 03:08 Baso % (Auto) 0.2 % 05/05/25 03:08 Neut # (Auto) 3.89 10^3/uL (1.8-7.7) 05/05/25 03:08 Lymph # (Auto) 0.8 10^3/uL (0.8-4.8) 05/05/25 03:08 [place] # (Auto) 0.5 10^3/uL (0.2-0.9) 05/05/25 03:08 Eos # (Auto) 0.1 10^3/uL (0.0-0.8) 05/05/25 03:08 Baso # (Auto) 0.0 10^3/uL (0.0-0.1) 05/05/25 03:08 Nucleated RBC % (auto) 0 % 05/05/25 03:08 Nucleated RBCs # 0.0 /100WBC 05/05/25 03:08 Specimen Type Arterial 05/03/25 16:15 Sample Site Radial, left 05/03/25 16:15 ABG pH 7.44 (7.35-7.45) 05/03/25 16:15 ABG pCO2 37.8 mmHg (35-45) 05/03/25 16:15 ABG pO2 97.2 mmHg (80.0-100.0) 05/03/25 16:15 ABG PO2/FiO2 Ratio 462 05/03/25 16:15 ABG HCO3 25.4 mmol/L (22-26) 05/03/25 16:15 ABG O2 Saturation 96.6 05/03/25 16:15 ABG Base Excess 1.3 mmol/L (-2.0-2.0) 05/03/25 16:15 Lauro Test Pos 05/03/25 16:15 A-a O2 Gradient 0.6 mmHg (5-10) L 05/03/25 16:15 Hematocrit 32.2 % (37-47) L 05/03/25 16:15 Hgb O2 Saturation 95.6 % (95-100) 05/03/25 16:15 Carboxyhemoglobin < 0.3 %THgb (0.4-20.1) L 05/03/25 16:15 Methemoglobin 1.1 % (0.4-1.5) 05/03/25 16:15 Total Hemoglobin 10.5 g/dL (12-16) L 05/03/25 16:15 Sodium 141.0 mmol/L (131-143) 05/03/25 16:15 Potassium 4.6 mmol/L (3.5-5.0) 05/03/25 16:15 Glucose 105.0 mg/dL (70-115) 05/03/25 16:15 Ionized Calcium 1.1 mmol/L (1.1-1.4) 05/03/25 16:15 O2 Delivery Device Room air 05/03/25 16:15 FiO2 21.0 % 05/03/25 16:15 Behavior Support Specialist ID [id number] 05/03/25 16:15 Sodium 139 mmol/L (136-145) 05/05/25 05:05 Potassium 4.1 mmol/L (3.5-5.1) 05/05/25 05:05 Chloride 100 mmol/L (98-107) 05/05/25 05:05 Carbon Dioxide 21 mmol/L (22-29) L 05/05/25 05:05 Anion Gap 22.1 (5-19) H 05/05/25 05:05 BUN 8 mg/dL (8-23) 05/05/25 05:05 Creatinine 0.6 mg/dL (0.5-0.9) 05/05/25 05:05 GFR Calculation 102.0 mL/min (90-130) 05/05/25 05:05 Glucose 119 mg/dL (65-115) H 05/05/25 05:05 Calculated Osmolality 287 mOsm/kg (285-295) 05/05/25 05:05 Lactic Acid 1.5 mmol/L (0.5-2.2) 05/04/25 13:05 Calcium 9.2 mg/dL (8.5-10.5) 05/05/25 05:05 Magnesium 1.9 mg/dL (1.7-2.3) 05/05/25 05:05 Iron 17 ug/dL (37-145) L 05/03/25 15:51 TIBC 423 mcg/dl 05/03/25 15:51 % Saturation 4.0 % (20-50) L 05/03/25 15:51 Unsat Iron Binding 406 ug/dL (112-347) H 05/03/25 15:51 Ferritin 12 ng/mL (15-150) L 05/03/25 15:51 Total Bilirubin 0.5 mg/dL (0.15-1.2) 05/05/25 05:05 GGT 26 U/L (5-36) 05/04/25 03:58 AST 223 U/L (0-32) H 05/05/25 05:05 ALT 292 U/L (0-33) H 05/05/25 05:05 Alkaline Phosphatase 250 U/L (35-105) H 05/05/25 05:05 Troponin T Baseline < 6 ng/L (0-10) 05/04/25 13:05 Troponin T 120 Minute 6.10 ng/L (0-10) 05/04/25 15:49 Delta Troponin T 0.75308 ABS# (0-10) 05/04/25 15:49 Troponin T Hi Sens 6Hr 6.53 ng/L (0-10) 05/04/25 19:16 Troponin T Hi Sens 6Hr Delta 0.20798 ng/L (0-12) 05/04/25 19:16 C-Reactive Protein 3.0 mg/L (0.0-4.9) 05/04/25 03:58 Total Protein 6.6 g/dL (6.6-8.7) 05/05/25 05:05 Albumin 4.3 g/dL (3.5-5.2) 05/05/25 05:05 Globulin 2.3 g/dL (1.3-4.6) 05/05/25 05:05 Lipase 13 U/L (13-60) 05/04/25 13:05 TSH 4.80 uIU/mL (0.27-4.20) H 05/03/25 15:51 Hepatitis A IgM Ab Non-reactive (Nonreactive) 05/04/25 13:05 Hep Bs Antigen Non-reactive (Nonreactive) 05/04/25 13:05 Hep B Core IgM Ab Non-reactive (Nonreactive) 05/04/25 13:05 Hepatitis C Antibody Non-reactive (Nonreactive) 05/04/25 13:05 HIV 1&2 Ab & HIV 1 Ag Non-reactive (Non-Reactiv) 05/04/25 13:05 HIV 1&2 Antibody Non-reactive (Non-Reactiv) 05/04/25 13:05 A&P Assessment and plan 1. Vasovagal syncope: The patient is episode of syncope during the nausea and vomiting, could be related to vasovagal reaction. Transient high degree AV block could be the etiology. Apparently the patient never had similar symptoms in the past. She is currently asymptomatic. 2. Chest pain, unspecified type: Patient had a Myocardial perfusion imaging today. She was found to have no evidence of ischemia. The chest pain is most likely noncardiac. GERD is a consideration. Her ongoing episodes of nausea vomiting and epigastric pain warrants further evaluation. 3. Atherosclerotic heart disease of [place] coronary artery with other forms of angina pectoris: Patient was found to have mild diffuse coronary disease by angiogram in 2021. No clinical evidence of any Miochol injury or ongoing coronary ischemia 4. Dyslipidemia: May continue on the current management 5. Elevated blood pressure reading: Currently the blood pressure seems to be in the normal range 6. Iron deficiency anemia, unspecified iron deficiency anemia type: Apparently the patient is known to have chronic anemia. Evaluation and management as per the primary. 7. Epigastric abdominal pain: Patient may benefit from further GI workup. Further evaluation and management as per the primary care. Plan: If the patient continues to remain stable, may be discharged home from a cardiac standpoint. May be appropriate to send her home with an event monitor for 30 days. GI workup as mentioned above I may see her back in the office in [address] Garg PDMP PDMP Reviewed: Not Reviewed Attestations Medical Necessity Statement*: Deferred to the primary Coding Level of Care Code 20453 Diagnoses Vasovagal syncope R55 Syncope type: vasovagal syncope Chest pain, unspecified type R07.9 Chest pain type: unspecified Atherosclerotic heart disease of [place] coronary artery with other forms of angina pectoris I25.118 Dyslipidemia E78.5 Elevated blood pressure reading R03.0 Iron deficiency anemia, unspecified iron deficiency anemia type D50.9 Iron deficiency anemia type: unspecified iron deficiency Epigastric abdominal pain R10.13
--- NOTE | 2025-05-05 10:29 | PM.DCS ---
Discharge Providers Date of Admission: 05/03/25 18:37 Date of Discharge: May 05, 2025 Attending Provider at Admission: Abigail Elizabeth MD Attending Provider at Discharge: Stefan Garg MD Primary Care Provider: Delonte Golden MD Diagnoses at Discharge Discharge Diagnosis 1. Vasovagal syncope: 2. Other chest pain: 3. Atherosclerotic heart disease of [place] coronary artery with other forms of angina pectoris: 4. Dyslipidemia: 5. Elevated blood pressure readin. Iron deficiency anemia, unspecified iron deficiency anemia type: 7. Epigastric abdominal pain: Reason for Visit Reason for Visit: chest pain Hospital Course Hospital Course This is a 60-year-old female with past medical history of hypertension, iron deficiency, gastritis, CAD who presents [facility] for chest pain Transaminitis - Etiology likely secondary to shock liver, hypotension, dehydration - Monitored LFTs as inpatient - Received IV fluids - Overall clinically improved, follow-up with primary care provider to monitor LFTs - Right upper quadrant ultrasound US/US liver [id number] IMPRESSION: Technically difficult study due to bowel gas and patient limitations 1. Prior cholecystectomy. 2. Slightly dilated common bile duct measuring 8 mm likely physiologic postcholecystectomy. 3. Liver is normal in appearance. 4. RIGHT kidney incompletely visualized but no evidence of hydronephrosis. Intractable nausea and vomiting - CT scan abdomen pelvis CT/CT abdomen pelvis wo con [id number] IMPRESSION: 1. No acute findings within limitations of a noncontrast exam. 2. Moderate colonic stool/gas, correlate for constipation. 3. Postoperative changes suggestive of partial gastrectomy. This is incompletely evaluated given the lack of intravenous and oral contrast. 4. Additional chronic and incidental/ancillary findings as above. - Received IV fluids, overall clinically improved, discharged with a close follow-up with primary care provider - With history of gastric surgery possible gastroparesis? Follow-up with primary care Atypical chest discomfort -CT angiogram of chest negative for PE IMPRESSIONS 1. Myocardial perfusion imaging revealing uniform tracer uptake with no significant perfusion abnormalities 2. Normal LV ejection fraction of 88% 3. LV wall motion analysis revealing no gross wall motion abnormalities. 4. Normal LV volume Low probability for coronary ischemia, based on the above findings Iron deficiency anemia - Protonix, Carafate on discharge - Patient declines IV iron -Declines p.o. 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 07/07/24 No significant elevation of systolic or diastolic velocities. Waveforms are normal. Mild carotid atherosclerosis. CONCLUSIONS Bilateral ICA stenosis less than 50%. Mild carotid atherosclerosis. - Serial EKGs, serial troponins, telemetry monitoring -No recurrent episodes -Discharge with event monitor Physical Exam Const: COMMON NORMALS: no acute distress and patient oriented x3 Eye: COMMON NORMALS: Equal, round and reactive pupils present and EOMs intact bilaterally PUPIL: Yes Equal, round and reactive pupils present Resp: COMMON NORMALS: normal respiratory effort, No retractions, No use of accessory muscles and clear to auscultation bilaterally AUSCULTATION: clear to auscultation bilaterally Cardio: COMMON NORMALS: regular rate, regular rhythm, S1 normal heart sound present and S2 normal heart sound present RATE: regular rate RHYTHM: regular rhythm HEART SOUNDS: S1 normal heart sound present and S2 normal heart sound present GI: COMMON NORMALS: Normal to inspection, nondistended, normoactive bowel sounds present and non-tender Extremity: COMMON NORMALS: no pedal edema Neuro: COMMON NORMALS: patient oriented x3 and moves all extremities Psych: COMMON NORMALS: mental status grossly normal Discharge Data Studies Completed and Pending Completed Studies During Hospitalization Category Date Time Status CT abdomen pelvis wo con [id number] Stat Cat Scan 05/04/25 11:[address] angio chest PE protcl [id number] Stat Cat Scan 05/03/25 20:38 Completed Cardiac Stress Test MIBI [Sestamibi Stress Test Request Exams 05/04/25 07:11 Draft ] Routine XR chest 1V portable [id number] Stat Exams 05/03/25 15:29 Completed NM jewels perf SPECT r/s* [id number] Routine Nuc Med 05/04/25 22:36 [place] liver [id number] Routine Ultrasound 05/04/25 13:56 Completed Pending at discharge Category Date Time Status Complete Blood Count w/Auto AM LABS Lab 05/06/25 04:00 Ordered Complete Blood Count w/Auto AM LABS Lab 05/07/25 04:00 Ordered Comprehensive Metabolic Panel AM LABS Lab 05/06/25 04:00 Ordered Comprehensive Metabolic Panel AM LABS Lab 05/07/25 04:00 Ordered Magnesium AM LABS Lab 05/06/25 04:00 Ordered Magnesium AM LABS Lab 05/07/25 04:00 Ordered CV carotid duplex BI* [id number] Routine Ultrasound 05/04/25 12:47 Taken CV. echo complete* [id number] Routine Ultrasound 05/05/25 12:47 Ordered Radiology Impressions Chest X-Ray 05/03/25 15:29 IMPRESSION: No acute cardiopulmonary process. Chest CTA 05/03/25 20:38 IMPRESSION: No acute findings. Abdomen/Pelvis CT 05/04/25 11:23 IMPRESSION: 1. No acute findings within limitations of a noncontrast exam. 2. Moderate colonic stool/gas, correlate for constipation. 3. Postoperative changes suggestive of partial gastrectomy. This is incompletely evaluated given the lack of intravenous and oral contrast. 4. Additional chronic and incidental/ancillary findings as above. COMMENTS: Consistent with the [employer]'s Incidental Findings Committee white paper (J Am Rossana Radiol 2017): For any incidental adrenal lesion greater than or equal to 1 cm but less than or equal to 4 cm classified in this report as benign, likely benign, or containing fat (including classification as an adenoma or myelolipoma), no follow-up imaging is recommended per consensus recommendations based on imaging criteria. Further lab evaluation could be pursued if warranted based on clinical findings. Liver Ultrasound 05/04/25 13:56 IMPRESSION: Technically difficult study due to bowel gas and patient limitations 1. Prior cholecystectomy. 2. Slightly dilated common bile duct measuring 8 mm likely physiologic postcholecystectomy. 3. Liver is normal in appearance. 4. RIGHT kidney incompletely visualized but no evidence of hydronephrosis. Laboratory Results WBC 5.28 10^3/uL (3.29-11.43) 05/05/25 03:08 RBC 3.67 10^6/uL (3.85-5.65) L 05/05/25 03:08 Hgb 8.80 g/dL (11.27-16.99) L 05/05/25 03:08 Hct 29.0 % (36-47) L 05/05/25 03:08 MCV 79.0 fl (85-98) L 05/05/25 03:08 MCH 24.0 pg (27-33) L 05/05/25 03:08 MCHC 30.3 g/dL (30-55) 05/05/25 03:08 RDW 15.0 % (12.1-15.1) 05/05/25 03:08 Plt Count 226 10^3/cmm (157-399) 05/05/25 03:08 MPV 11.1 fL (7.4-10.4) H 05/05/25 03:08 Neut % (Auto) 73.6 % 05/05/25 03:08 Lymph % (Auto) 15.0 % 05/05/25 03:08 [place] % (Auto) 9.1 % 05/05/25 03:08 Eos % (Auto) 1.9 % 05/05/25 03:08 Baso % (Auto) 0.2 % 05/05/25 03:08 Neut # (Auto) 3.89 10^3/uL (1.8-7.7) 05/05/25 03:08 Lymph # (Auto) 0.8 10^3/uL (0.8-4.8) 05/05/25 03:08 [place] # (Auto) 0.5 10^3/uL (0.2-0.9) 05/05/25 03:08 Eos # (Auto) 0.1 10^3/uL (0.0-0.8) 05/05/25 03:08 Baso # (Auto) 0.0 10^3/uL (0.0-0.1) 05/05/25 03:08 Nucleated RBC % (auto) 0 % 05/05/25 03:08 Nucleated RBCs # 0.0 /100WBC 05/05/25 03:08 Specimen Type Arterial 05/03/25 16:15 Sample Site Radial, left 05/03/25 16:15 ABG pH 7.44 (7.35-7.45) 05/03/25 16:15 ABG pCO2 37.8 mmHg (35-45) 05/03/25 16:15 ABG pO2 97.2 mmHg (80.0-100.0) 05/03/25 16:15 ABG PO2/FiO2 Ratio 462 05/03/25 16:15 ABG HCO3 25.4 mmol/L (22-26) 05/03/25 16:15 ABG O2 Saturation 96.6 05/03/25 16:15 ABG Base Excess 1.3 mmol/L (-2.0-2.0) 05/03/25 16:15 Lauro Test Pos 05/03/25 16:15 A-a O2 Gradient 0.6 mmHg (5-10) L 05/03/25 16:15 Hematocrit 32.2 % (37-47) L 05/03/25 16:15 Hgb O2 Saturation 95.6 % (95-100) 05/03/25 16:15 Carboxyhemoglobin < 0.3 %THgb (0.4-20.1) L 05/03/25 16:15 Methemoglobin 1.1 % (0.4-1.5) 05/03/25 16:15 Total Hemoglobin 10.5 g/dL (12-16) L 05/03/25 16:15 Sodium 141.0 mmol/L (131-143) 05/03/25 16:15 Potassium 4.6 mmol/L (3.5-5.0) 05/03/25 16:15 Glucose 105.0 mg/dL (70-115) 05/03/25 16:15 Ionized Calcium 1.1 mmol/L (1.1-1.4) 05/03/25 16:15 O2 Delivery Device Room air 05/03/25 16:15 FiO2 21.0 % 05/03/25 16:15 Psychiatry Teacher ID Gd 05/03/25 16:15 Sodium 139 mmol/L (136-145) 05/05/25 05:05 Potassium 4.1 mmol/L (3.5-5.1) 05/05/25 05:05 Chloride 100 mmol/L (98-107) 05/05/25 05:05 Carbon Dioxide 21 mmol/L (22-29) L 05/05/25 05:05 Anion Gap 22.1 (5-19) H 05/05/25 05:05 BUN 8 mg/dL (8-23) 05/05/25 05:05 Creatinine 0.6 mg/dL (0.5-0.9) 05/05/25 05:05 GFR Calculation 102.0 mL/min (90-130) 05/05/25 05:05 Glucose 119 mg/dL (65-115) H 05/05/25 05:05 Calculated Osmolality 287 mOsm/kg (285-295) 05/05/25 05:05 Lactic Acid 1.5 mmol/L (0.5-2.2) 05/04/25 13:05 Calcium 9.2 mg/dL (8.5-10.5) 05/05/25 05:05 Magnesium 1.9 mg/dL (1.7-2.3) 05/05/25 05:05 Iron 17 ug/dL (37-145) L 05/03/25 15:51 TIBC 423 mcg/dl 05/03/25 15:51 % Saturation 4.0 % (20-50) L 05/03/25 15:51 Unsat Iron Binding 406 ug/dL (112-347) H 05/03/25 15:51 Ferritin 12 ng/mL (15-150) L 05/03/25 15:51 Total Bilirubin 0.5 mg/dL (0.15-1.2) 05/05/25 05:05 GGT 26 U/L (5-36) 05/04/25 03:58 AST 223 U/L (0-32) H 05/05/25 05:05 ALT 292 U/L (0-33) H 05/05/25 05:05 Alkaline Phosphatase 250 U/L (35-105) H 05/05/25 05:05 Troponin T Baseline < 6 ng/L (0-10) 05/04/25 13:05 Troponin T 120 Minute 6.10 ng/L (0-10) 05/04/25 15:49 Delta Troponin T 0.34906 ABS# (0-10) 05/04/25 15:49 Troponin T Hi Sens 6Hr 6.53 ng/L (0-10) 05/04/25 19:16 Troponin T Hi Sens 6Hr Delta 0.22939 ng/L (0-12) 05/04/25 19:16 C-Reactive Protein 3.0 mg/L (0.0-4.9) 05/04/25 03:58 Total Protein 6.6 g/dL (6.6-8.7) 05/05/25 05:05 Albumin 4.3 g/dL (3.5-5.2) 05/05/25 05:05 Globulin 2.3 g/dL (1.3-4.6) 05/05/25 05:05 Lipase 13 U/L (13-60) 05/04/25 13:05 TSH 4.80 uIU/mL (0.27-4.20) H 05/03/25 15:51 Hepatitis A IgM Ab Non-reactive (Nonreactive) 05/04/25 13:05 Hep Bs Antigen Non-reactive (Nonreactive) 05/04/25 13:05 Hep B Core IgM Ab Non-reactive (Nonreactive) 05/04/25 13:05 Hepatitis C Antibody Non-reactive (Nonreactive) 05/04/25 13:05 HIV 1&2 Ab & HIV 1 Ag Non-reactive (Non-Reactiv) 05/04/25 13:05 HIV 1&2 Antibody Non-reactive (Non-Reactiv) 05/04/25 13:05 Vitals Last Vital Signs Temp 97.7 F 05/05/25 07:46 Pulse 105 H 05/05/25 07:46 Resp 26 H 05/05/25 07:46 BP 129/74 05/05/25 07:46 Pulse Ox 94 05/05/25 07:46 O2 Del Method Room Air 05/05/25 07:46 Discharge Plan Discharge Patient Disposition: Home Condition: Stable Prescriptions: New nitroglycerin 0.4 mg Tablet, Sublingual 0.4 mg sublingual Q5M PRN (Reason: Chest Pain) 30 Days Qty: 30 0RF sucralfate [Carafate] 1 gram tablet 1 g PO BID 28 Days Qty: 56 0RF Continued tizanidine 2 mg tablet 2 mg PO Q6H PRN (Reason: Spasms) 14 Days Qty: 30 1RF cholecalciferol (vitamin D3) [Vitamin D3] 50 mcg (2,000 unit) capsule 2,000 unit PO DAILY pantoprazole [Protonix] 40 mg tablet,delayed release (DR/EC) 40 mg PO BID 30 Days Qty: 60 1RF nitroglycerin [Nitrostat] 0.4 mg Tablet, Sublingual 0.4 mg SUBLINGUAL Q5M PRN (Reason: Chest Pain) Rx Instructions: do not exceed 3 doses per episode [id number] [Excedrin Extra Strength] 250-250-65 mg Tablet 2 tab PO Q6H PRN (Reason: Pain) Tax Compliance Manager OK for DC: Cardiology Discharge Order = DC NOW: Discharge Order (Routine); Ordered 05/05/25 Ordered By: Stefan Garg Referrals: Yovani Pruitt MD [Physician, General Surgery] - 05/12/25 9:20 am Referral Note: anemia, needing egd. The appt is with Braden Aguillon NP [Referring, Nurse Practitioner] - 05/11/25 10:30 am Yared Saldana MD [Physician, Cardiology] - 05/31/25 1:45 pm Garry Alvarez MD [Hospitalist, Oncology] - 05/09/25 3:15 pm Referral Note: iron deficiency Discharge Diet: Cardiac Discharge Activity: Resume usual activity Patient Instructions: Chest Pain - Chest Wall, COPD, Nitroglycerin (By mouth), Sucralfate (By mouth), Hypertensive Crisis (DC), Opioid Safety, Patient Portal & [place] Instructions Activity Restrictions/Additional Instructions: - If you develop bloody or black stools please go to the emergency room - If you have lightheadedness go to the emergency room - Follow-up with cardiology - See primary care provider about iron deficiency Discharge Attestations Time Spent in Discharge Care*: greater than 30 min Quality Metrics Clinical Quality Measures [ No reported AMI, CVA or VTE this stay] Coding Level of Care Code 59344 Total time (in minutes) for Discharge: 45 Diagnoses Vasovagal syncope R55 Syncope type: vasovagal syncope Other chest pain R07.89 Chest pain type: other chest pain Atherosclerotic heart disease of [place] coronary artery with other forms of angina pectoris I25.118 Dyslipidemia E78.5 Elevated blood pressure reading R03.0 Iron deficiency anemia, unspecified iron deficiency anemia type D50.9 Iron deficiency anemia type: unspecified iron deficiency Epigastric abdominal pain R10.13
[2025-05-05 10:37] VITALS: BP 127/67; BP 128/75; BP 135/78; PULSE 107; PULSE 119; PULSE 98
[2025-05-05 11:54] VITALS: BP 128/72; PULSE 100; RESP 23; TEMP 36.9; O2SAT 94
--- NOTE | 2025-05-05 12:47 | USCV_ITS ---
Radha Maguire Age: 60 Gender: F : 1965 Exam Date: 05/05/2025 10:58 Ordering Phys: Stefan Garg MD Technologist: Exam Location: [facility] [place] Indication: Syncope BP: 127 / 67 HR: 98 Rhythm: Sinus Technical Quality: Adequate MEASUREMENTS (Male / Female) Normal Values 2D ECHO LV Diastolic Diameter PLAX 3.1 cm 4.2 - 5.9 / 3.9 - 5.3 cm IVS Diastolic Thickness 1.0 cm 0.6 - 1.0 / 0.6 - 0.9 cm IVS Systolic Thickness 1.1 cm LVPW Diastolic Thickness 0.8 cm 0.6 - 1.0 / 0.6 - 0.9 cm LVPW Systolic Thickness 1.0 cm LVOT Diameter 2.0 cm LV Ejection Fraction 2D Teich 66.4 % LV Ejection Fraction MOD 4C 72.9 % LV Ejection Fraction MOD 2C 71.9 % LV Ejection Fraction 2C AL 73.2 % LA Diameter 3.1 cm RA Systolic Volume 4C AL 15.8 ml RA Systolic Volume 4C MOD 15.4 ml LA Sys Volume AL 16.2 cm cubed LA Sys Volume Index AL 10.2 cm cubed/m squared Aorta at Sinotubular Diameter 2.0 cm IVC Diameter 0.9 cm DOPPLER AV Peak Velocity 125.0 cm/s LVOT Peak Velocity 99.0 cm/s AV Area Cont Eq vti 2.2 cm squared AV Area Cont Eq pk 2.5 cm squared MV Peak Velocity 98.0 cm/s MV Area PHT 8.7 cm squared Mitral E to A Ratio 0.8 TV Peak Velocity 230.0 cm/s TR Peak Velocity 268.0 cm/s TR Peak Gradient 28.7 mmHg TR Mean Velocity 220.0 cm/s TR Mean Gradient 20.5 mmHg TR Velocity Time Integral 57.8 cm PV Peak Velocity 96.0 cm/s RV Ejection Time 0.2 s FINDINGS Left Ventricle Normal left ventricular size and systolic function, EF 73%.no regional wall motion abnormalities. Grade I/IV diastolic dysfunction (abnormal relaxation filling pattern), normal to mildly elevated filling pressures. Right Ventricle Normal right ventricular size and systolic function. Right Atrium Normal right atrial size. Left Atrium Normal left atrial size. IA Septum Normal appearance of the interatrial septum. Mitral Valve Trace mitral valve regurgitation. Aortic Valve No gross abnormalities noted Tricuspid Valve Trace tricuspid valve regurgitation. Pulmonic Valve Pulmonic valve not well visualized. Pericardium No pericardial effusion. Aorta Normal diameter of the aortic root and ascending thoracic aorta. IVC Inferior vena cava not visualized. CONCLUSIONS Normal left ventricular size and systolic function, EF 73%.no regional wall motion abnormalities. Grade I/IV diastolic dysfunction (abnormal relaxation filling pattern), normal to mildly elevated filling pressures. Trace of mitral and tricuspid valve regurgitation. There is no pericardial effusion. There are no intracardiac masses. Compared to the study from 07/07/2024, no significant change. Comparison with the previous study is difficult because of the difference in the technical quality. Dr Meño Neff MD FACC (Electronically Signed) Final Date: 05 May 2025 17:42 S
[2025-05-05 14:23] VITALS: BP 128/72; PULSE 84; RESP 18; O2SAT 96
== END 2025-05-05 14:25 | disposition home or self-care (01) ==
LOC: ER 20:28 → ER IP 20:35 → CSU 05-04 04:07
PROVIDERS: Admitting Provider Student in an Organized Health Care Education/Training Program; Emergency Provider Family Medicine; PCP Family Medicine; Visit Provider Family Medicine
DX: I25.118 Atherosclerotic heart disease of native coronary artery with other forms of angina pectoris (principal); R55 Syncope and collapse; E78.5 Hyperlipidemia, unspecified; R03.0 Elevated blood-pressure reading, without diagnosis of hypertension; D50.9 Iron deficiency anemia, unspecified; R10.13 Epigastric pain; Z79.82 Long term (current) use of aspirin; K21.9 Gastro-esophageal reflux disease without esophagitis; Z79.891 Long term (current) use of opiate analgesic; D64.9 Anemia, unspecified; G62.9 Polyneuropathy, unspecified; R00.1 Bradycardia, unspecified; R00.2 Palpitations; I44.1 Atrioventricular block, second degree; Z82.49 Family history of ischemic heart disease and other diseases of the circulatory system; Z80.9 Family history of malignant neoplasm, unspecified; I10 Essential (primary) hypertension
CPT/HCPCS: 36415; 36600; 71045; 71275; 74176; 76705; 78452; 80051; 80053; 80074; 82330; 82728; 82805; 82977; 83540; 83550; 83605; 83690; 83735; 84443; 84484; 85025; 86140; 87806; 93005; 93017; 93306; 93880; 96365; 96372; 96375; 96376; 99285; A9500; G0378; J1650; J2270; J2405; J2470; J2765; J2785; J7030; J9999

== ENCOUNTER 2025-05-23 12:50 | Emergency (ER) | payer MEDICAID, SELFPAY ==
--- NOTE | 2025-05-23 12:50 | CT_ITS ---
WS: [id number] CT HEAD TECHNIQUE: Noncontrast CT of the head obtained from the skullbase to the vertex. CLINICAL INFORMATION: Symptoms of acute stroke COMPARISON: MRI 01/13/2025 DLP: [id number] scans at [facility] use at least one of these dose optimization techniques: automated exposure control; mA and/or kV adjustment per patient size (includes targeted exams where dose is matched to clinical indication); or iterative reconstruction. FINDINGS: No evidence of intracranial hemorrhage or mass effect. Ventricular system and basal cisterns are patent. Mild small vessel changes with mild parenchymal volume loss. No extra-axial fluid collections. No evidence of mass or mass effect. Vascular calcification. Paranasal sinuses and mastoid air cells are well aerated. .Normal visualized soft tissues. CT/CT head thrombolytic [id number] IMPRESSION: 1. No evidence of intracranial hemorrhage or mass effect. 2. Vascular calcification DMM and 3. No acute intracranial findings. Notified Dr. Odonnell at 05/23/2025 1:04 PM.
--- NOTE | 2025-05-23 12:53 | ED_ITS ---
HPI - Neuro Symptoms/Deficit 2 General: Chief Complaint: Neuro Symptoms/Deficit Stated Complaint: Stroke Alert Time Seen by Provider: 05/23/25 12:50 History of Present Illness: 60-year-old female presents emergency ro om with a headache that started last night and left facial droop today. 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 She is complaining of a left-sided headache. And is quite tender over her left scalp posteriorly. No word salad. No focal motor deficits. No drift. No confusion. Follows commands. No fevers. No chest pain. No abdominal pain. No vomiting Related Data Home Medications ?Medication ?Instructions ?Recorded ?Confirmed nitroglycerin 0.4 mg sublingual 0.4 mg sublingual Q5M PRN Chest 07/16/23 05/04/25 tablet (Nitrostat) Pain fbtdawr-ubleacgwcwwih-axbnorsl 250 2 tab PO Q6H PRN Pa in 07/07/24 05/04/25 mg-250 mg-65 mg tablet (Excedrin Extra Strength) cholecalciferol (vitamin D3) 50 2,000 unit PO DAILY 05/04/25 mcg (2,000 unit) capsule (Vitamin D3) Previous Rx's ?Medication ?Instructions ?Recorded tizanidine 2 mg tablet 2 mg PO Q6H PRN Spasms 14 da ys #30 05/18/24 tabs nitroglycerin 0.4 mg sublingual 0.4 mg sublingual Q5M PRN Chest 05/04/25 tablet Pain 30 days #30 tabs pantoprazole 40 mg tablet,delayed 40 mg PO BID 30 days #60 tabs 05/04/25 release (Protonix) sucralfate 1 gram tablet (Carafate) 1 g PO BID 4 weeks #56 tabs 05/04/25 carboxymethylcellulose sodium 1 % 2 drp ophthalmic (ey e) 5XD PRN dry 05/23/25 eye drops (Artificial Tears eye(s) #15 mL (carboxymethylcellulose)) cefdinir 300 mg capsule 300 mg PO BID 10 days #20 ca ps 05/23/25 prednisone 20 mg tablet 60 mg (3 x 20 mg) PO DAILY # 20 tabs 05/23/25 valacyclovir 1 gram tablet 1,000 mg PO Q12H 10 days #2 0 tabs 05/23/25 Allergies Allergy/AdvReac Type Severity Reaction Status Date / Time diphenhydramine (From Allergy Unknown Verified 07/25/24 12:48 Benadryl) hydromorphone (From Dilaudid) Allergy ADR-Vomitin Verified 07/25/24 12:48 g ibuprofen (From Motrin) Allergy ALGY-Anaphy Verified 07/25/24 12:48 laxis Penicillins Allergy ALGY-Anaphy Verified 07/25/24 12:48 laxis tramadol Allergy Unknown Verified 07/25/24 12:48 Review of Systems 2 Narrative: Constitutional symptoms: Negative except as documented in HPI. Skin symptoms: Negative except as documented in HPI. Eye symptoms: Negative except as documented in HPI. ENMT symptoms: Negative except as documented in HPI. Respiratory symptoms: Negative except as documented in HPI. Cardiovascular symptoms: Negative except as documented in HPI. Gastrointestinal symptoms: Negative except as documented in HPI. Genitourinary symptoms: Negative except as documented in HPI. Musculoskeletal symptoms: Negative except as documented in HPI. Neurologic symptoms: Negative except as documented in HPI. Psychiatric symptoms: Negative except as documented in HPI. Endocrine symptoms: Negative except as documented in HPI. 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,quit in 2000 Metatarsal bone fracture Dysphagia Weight loss Peripheral neuropathy Abnormal EKG GERD (gastroesophageal reflux disease) Benign essential hypertension with target blood pressure below 140/90 Bradycardia AV block, 2nd degree Recurrent vomiting Nausea and vomiting Elevated blood pressure reading Unstable angina Chest pain Palpitations Chest pain Emphysema of lung Quit in 2019 Chronic migraine without aura, intractable, with status migrainosus Surgical History Status post colon resection H/O colonoscopy History of surgery ULCERS AND PART OF STOMACH REMOVED History of colon resection History of hysterectomy History of appendectomy History of cholecystectomy Family History Mother CAD (coronary artery disease), Onset Age: 50 Cancer Lung disease Stroke Denies family history of Diabetes Clotting disorder Dementia Chronic kidney disease (CKD) Suicide Anesthesia complication Bleeding disorder Social History Smoking and tobacco/nicotine status: unknown if used tobacco/nicotine Alcohol intake: former Substance/Drug Use: never Physical Exam 2 Narrative: EXAM NARRATIVE: General: Alert, no acute distress. Skin: Warm, dry. Head: Normocephalic, atraumatic. Neck: Supple, trachea midline. Eye: Extraocular movements are intact. Ears, nose, mouth and throat: mucosa moist. Cardiovascular: Regular, Normal peripheral perfusion. Respiratory: Lungs are clear to auscultation, respirations are non-labored, breath sounds are equal, Symmetrical chest wall expansion. Gastrointestinal: Soft, Nontender, Non distended Musculoskeletal: Normal ROM, no deformity. Neurological: Alert and oriented, patient has weakness of the left mouth and cannot smile on the left side. Weakness of left eye and eyebrow. Cannot close her left eye and cannot lift her left eyebrow. She is very tender over her left scalp Psychiatric: Cooperative, appropriate mood & affect. Course 2 Vital Signs: Vital signs: Vital Signs Temperature 98.6 F 05/23/25 13:00 Pulse Rate 101 H 05/23/25 13:00 Respiratory Rate 16 05/23/25 13:00 Blood Pressure 127/79 05/23/25 13:00 Pulse Oximetry 100 05/23/25 13:00 Oxygen Delivery Me thod Room Air 05/23/25 13:00 MDM - Neuro Symptoms/Deficit Medical Decision Making Medical decision making: Differential diagnosis for patient with complaint of facial droop: bells palsy vs stroke. including but not limited to and based on the above HPI, review of systems and physical exam: basic labwork and ct head ordered to evaluate, rule in and rule out above pathologies. involves forehead and eyelid, so almost certainly not a stroke Orders placed to evaluate differential diagnosis based on the above differential, HPI and physical exam CT head: No acute intracranial process. No intracranial hemorrhage, no evidence of infarct. No evidence of acute fracture. This was reviewed and interpreted by myself the emergency room physician. I also reviewed the radiology report. Last known well time was around midnight last night. She is out of the window for TNKase. Consultation: I spoke with Dr. Mack who is on-call for neurology. 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 NIH Stroke Scale/Score (NIHSS) from [email or web address] on 05/23/2025 All calculations should be rechecked by clinician prior to use RESULT SUMMARY: 3 points NIH Stroke Scale INPUTS: 1A: Level of consciousness ?> 0 = Alert; keenly responsive 1B: Ask month and age ?> 0 = Both questions right 1C: 'Blink eyes' & 'squeeze hands' ?> 0 = Performs both tasks 2: Horizontal extraocular movements ?> 0 = Normal 3: Visual bergman ?> 0 = No visual loss 4: Facial palsy ?> 3 = Unilateral complete paralysis (upper/lower face) 5A: Left arm motor drift ?> 0 = No drift for 10 seconds 5B: Right arm motor drift ?> 0 = No drift for 10 seconds 6A: Left leg motor drift ?> 0 = No drift for 5 seconds 6B: Right leg motor drift ?> 0 = No drift for 5 seconds 7: Limb Ataxia ?> 0 = No ataxia 8: Sensation ?> 0 = Normal; no sensory loss 9: Language/aphasia ?> 0 = Normal; no aphasia 10: Dysarthria ?> 0 = Normal 11: Extinction/inattention ?> 0 = No abnormality EKG: Time 1300. Rate 96. Normal sinus rhythm, No ST-T changes, no ectopy, normal SC & QRS intervals, This was reviewed and interpreted by myself the ER physician at 1305 Lab Review: Laboratory results were reviewed and interpreted by myself the emergency room physician. No leukocytosis. No anemia. No renal failure. Liver enzymes are normal. I reviewed the patient's medical record. Reexamination: Patient continues to have weakness of her left mouth muscles and weakness of her left eyelids. We discussed using artificial tears during the day and an eye patch at night. Assessment and plan: Espinoza's palsy ?IV Solu-Medrol and p.o. first dose of valacyclovir here - Discharged home - Discussed plan with patient. Answered any questions. - Evaluation and treatment of this problem were appropriate in the emergency setting. Lab Data 05/23/25 12:38 05/23/25 12:[address] 05/23/25 12:50 IMPRESSION: 1. No evidence of intracranial hemorrhage or mass effect. 2. Vascular calcification DMM and 3. No acute intracranial findings. Notified Dr. Odonnell at 05/23/2025 1:04 PM. Laboratory Results WBC 4.34 10^3/uL (3.29-11.43) 05/23/25 12:38 RBC 4.18 10^6/uL (3.85-5.65) 05/23/25 12:38 Hgb 10.20 g/dL (11.27-16.99) L 05/23/25 12:38 Hct 32.9 % (36-47) L 05/23/25 12:38 MCV 78.7 fl (85-98) L 05/23/25 12:38 MCH 24.4 pg (27-33) L 05/23/25 12:38 MCHC 31.0 g/dL (30-55) 05/23/25 12:38 RDW 15.3 % (12.1-15.1) H 05/23/25 12:38 Plt Count 260 10^3/cmm (157-399) 05/23/25 12:38 MPV 9.9 fL (7.4-10.4) 05/23/25 12:38 Neut % (Auto) 51.8 % 05/23/25 12:38 Lymph % (Auto) 32.3 % 05/23/25 12:38 [place] % (Auto) 9.7 % 05/23/25 12:38 Eos % (Auto) 5.8 % 05/23/25 12:38 Baso % (Auto) 0.2 % 05/23/25 12:38 Neut # (Auto) 2.25 10^3/uL (1.8-7.7) 05/23/25 12:38 Lymph # (Auto) 1.4 10^3/uL (0.8-4.8) 05/23/25 12:38 [place] # (Auto) 0.4 10^3/uL (0.2-0.9) 05/23/25 12:38 Eos # (Auto) 0.3 10^3/uL (0.0-0.8) 05/23/25 12:38 Baso # (Auto) 0.0 10^3/uL (0.0-0.1) 05/23/25 12:38 Nucleated RBC % (auto) 0 % 05/23/25 12:38 Nucleated RBCs # 0.0 /100WBC 05/23/25 12:38 PT 12.10 SECONDS (12.1-14.9) 05/23/25 12:38 INR 0.84 (0.8-1.2) 05/23/25 12:38 APTT 24.5 SECONDS (23.9-36.7) 05/23/25 12:38 Sodium 139 mmol/L (136-145) 05/23/25 12:38 Potassium 4.0 mmol/L (3.5-5.1) 05/23/25 12:38 Chloride 102 mmol/L (98-107) 05/23/25 12:38 Carbon Dioxide 24 mmol/L (22-29) 05/23/25 12:38 Anion Gap 17.0 (5-19) 05/23/25 12:38 BUN 10 mg/dL (8-23) 05/23/25 12:38 Creatinine 0.5 mg/dL (0.5-0.9) 05/23/25 12:38 GFR Calculation 125.9 mL/min (90-130) 05/23/25 12:38 Glucose 97 mg/dL (65-115) 05/23/25 12:38 POC Glucose 117 mg/dL (70-110) H 05/23/25 13:01 Calculated Osmolality 287 mOsm/kg (285-295) 05/23/25 12:38 Calcium 8.9 mg/dL (8.5-10.5) 05/23/25 12:38 Total Bilirubin 0.3 mg/dL (0.15-1.2) 05/23/25 12:38 AST 23 U/L (0-32) 05/23/25 12:38 ALT 17 U/L (0-33) 05/23/25 12:38 Alkaline Phosphatase 107 U/L (35-105) H 05/23/25 12:38 Total Protein 6.7 g/dL (6.6-8.7) 05/23/25 12:38 Albumin 4.4 g/dL (3.5-5.2) 05/23/25 12:38 Globulin 2.3 g/dL (1.3-4.6) 05/23/25 12:38 All radiology interpretation(s) finalized by discharge Discharge Plan Discharge Patient Disposition: Home Clinical Impression: Espinoza's palsy Condition: Stable Prescriptions: New valacyclovir 1 gram tablet 1,000 mg PO Q12H 10 Days Qty: 20 0RF prednisone 20 mg tablet 60 mg PO DAILY Qty: 20 0RF Rx Instructions: 3 tabs (60 mg) x 3 days. 2 tabs (40 mg) x 3 days. 1 tab (20 mg) x 3 days. 1/2 tab (10 mg) x 4 days Artificial Tears (cmc) 1 % drops 2 drp ophthalmic (eye) 5XD PRN (Reason: dry eye(s)) Qty: 15 1RF cefdinir 300 mg capsule 300 mg PO BID 10 Days Qty: 20 0RF No Action tizanidine 2 mg tablet 2 mg PO Q6H PRN (Reason: Spasms) 14 Days Qty: 30 1RF cholecalciferol (vitamin D3) [Vitamin D3] 50 mcg (2,000 unit) capsule 2,000 unit PO DAILY nitroglycerin 0.4 mg Tablet, Sublingual 0.4 mg sublingual Q5M PRN (Reason: Chest Pain) 30 Days Qty: 30 0RF sucralfate [Carafate] 1 gram tablet 1 g PO BID 28 Days Qty: 56 0RF pantoprazole [Protonix] 40 mg tablet,delayed release (DR/EC) 40 mg PO BID 30 Days Qty: 60 1RF nitroglycerin [Nitrostat] 0.4 mg Tablet, Sublingual 0.4 mg SUBLINGUAL Q5M PRN (Reason: Chest Pain) Rx Instructions: do not exceed 3 doses per episode [id number]-auqotaqa [Excedrin Extra Strength] 250-250-65 mg Tablet 2 tab PO Q6H PRN (Reason: Pain) Discharge Orders: Discharge ED (Routine); Ordered 05/23/25 Ordered By: Ximena Decker Referrals: Delonte Golden MD [Primary Care Provider, Family Practice] Discharge Diet: Usual diet Discharge Activity: Increase activity as tolerated Patient Instructions: Espinoza Palsy (ED), Opioid Safety, Pain Management, Patient Portal & Falguni Instructions Activity Restrictions/Additional Instructions: Thank you for choosing [facility] for your healthcare needs today. You have been screened and evaluated and felt safe for discharge. Health conditions do change or evolve sometimes and as such it is important that you follow up with your Primary Doctor to be re checked, 3-5 days is a general good time frame for follow up. You are always welcome to return to the ED for re assessment if your symptoms are worsening or you have new concerns Print Language: Spanish Coding Level of Care Code ED Director Of Alumni Relations for Storm Wolfe
[2025-05-23 13:00] VITALS: BP 127/79; PULSE 101; RESP 16; TEMP 37; O2SAT 100
--- NOTE | 2025-05-23 13:00 | ECG_ITS ---
[facility] Date: 2025-05-23 Pat Name: Radha Maguire Department: Room: Gender: Female Kerrick Kleaner Operator: : 1965 Requested By: Narendra Ramírez Order Number: [id number] Emily MD: Meño Neff M.D. Measurements Intervals Lyman Rate: 96 P: 73 NV: 123 QRS: 64 QRSD: 86 T: 67 QT: 326 QTc: 412 Interpretive Statements SINUS RHYTHM POSSIBLE LEFT ATRIAL ENLARGEMENT [-0.1mV P-WAVE IN V1/V2] POSSIBLE RIGHT VENTRICULAR CONDUCTION DELAY [RSR (QR) IN V1/V2] Compared to ECG 05/04/2025 21:40:11 No significant changes Electronically Signed On 05-23-2025 15:33:39 CDT by Meño Neff M.D. [email or web address]
[2025-05-23 13:21] LABS: Hematocrit 32.9 % (36-47); Hemoglobin 10.20 g/dL (11.27-16.99); Mean Corpuscular HGB Conc 31.0 g/dL (30-55); Mean Corpuscular Hemoglobin 24.4 pg (27-33); Mean Corpuscular Volume 78.7 fl (85-98); Nucleated Red Blood Cells % 0 %; Platelet Count 260 10^3/cmm (157-399); Red Blood Count 4.18 10^6/uL (3.85-5.65); White Blood Count 4.34 10^3/uL (3.29-11.43)
[2025-05-23 13:31] LABS: INR 0.84 (0.8-1.2); Prothrombin Time 12.10 SECONDS (12.1-14.9)
[2025-05-23 13:32] LABS: Partial Thromboplastin Time 24.5 SECONDS (23.9-36.7)
[2025-05-23 13:41] LABS: Alanine Aminotransferase 17 U/L (0-33); Albumin Level 4.4 g/dL (3.5-5.2); Alkaline Phosphatase 107 U/L (35-105); Aspartate Amino Transferase 23 U/L (0-32); Blood Urea Nitrogen 10 mg/dL (8-23); Calcium 8.9 mg/dL (8.5-10.5); Carbon Dioxide 24 mmol/L (22-29); Chloride 102 mmol/L (98-107); Creatinine Clr Calc Pharmacy 105.9334; Globulin 2.3 g/dL (1.3-4.6); Glucose 97 mg/dL (65-115); Osmolality Calculated 287 mOsm/kg (285-295); Sodium 139 mmol/L (136-145); Total Protein 6.7 g/dL (6.6-8.7)
[2025-05-23 13:46] LABS: Anion Gap 17.0 (5-19); Potassium 4.0 mmol/L (3.5-5.1)
[2025-05-23] MEDS: methylPREDNISolone sod succ 125 mg/2 mL INJ IVP (14:27)
--- OUTSIDE RECORDS SUMMARY | 2025-05-23 15:07 | XMS_ITS | Encounter Summary ---
Author Organization [facility] Address [address] [place] [address] Care Team Providers Care Welder Apprentice Gas Name Role Phone Non-Staff, Physician Primary Care Provider Unava ilable Encounter Details Date Type Department Care Team (Late st Contact Info) Description 08/14/2007 Emergency [facility] Emergency Department [address] [place] [address] Ed, Physician NO ADDRESS ON [...] on file Legal Sex Female 6:52 AM TWISTER DOFFER Gender Identity Not on file Sexual Orientation Not on file documented as of this encounter Plan of Treatment Not on file documented as of this encounter Procedures Procedure Name Priority Date/Time Associated Diagnosis Comments URINALYSIS W/REFLEX MICROSCOPIC Routine 08/14/2007 6:35 PM TWISTER DOFFER CBC WITH DIFFERENTIAL Routine 08/14/2007 4:16 PM TWISTER DOFFER documented in this encounter Results * URINALYSIS (08/14/2007 6:35 PM TWISTER DOFFER) COLOR UA Straw Straw INTERFACE SYSTEM CLARITY [...] No No INTERFACE SYSTEM 08/14/2007 6:35 PM TWISTER DOFFER Joe Perez MD URINE ORDERABLES Edited INTERFACE SYSTEM Refer to clinic/hospital department * (ABNORMAL) CBC WITH DIFFERENTIAL (08/14/2007 4:16 PM TWISTER DOFFER) WBC 5.4 4.5 - 11.0 K/ul INTERFACE [...] Automated Diff INTERFACE SYSTEM 08/14/2007 4:16 PM TWISTER DOFFER Joe Perez MD HEMATOLOGY ORDERABLES Edit ed INTERFACE SYSTEM Refer to clinic/hospital department documented in this encounter Visit Diagnoses Diagnosis Lumbago Chronic airway obstruction, not elsewhere classified (CMS/[facility]) Chronic airway obstruction, not elsewhere classified Encounter for long-term (current) use of other medications Personal history of allergy to penicillin Personal history of allergy to analgesic agent documented in this encounter Care Teams Welder Apprentice Gas Relationship Specialty Start Date End Date Non-Staff, Physician NO ADDRESS ON FILE PCP - General 07/02/07 documented as of this encounter
--- OUTSIDE RECORDS SUMMARY | 2025-05-23 15:07 | XMS_ITS | Encounter Summary ---
Author Organization [facility] Address [address] [place] [address] Care Team Providers Care Assistant Professor Of Theater Name Role Phone Non-Staff, Physician Primary Care Provider Unava ilable Encounter Details Date Type Department Care Team (Late st Contact Info) Description 07/28/2007 Outpatient Historical [facility] [address] 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
--- OUTSIDE RECORDS SUMMARY | 2025-05-23 15:07 | XMS_ITS | Encounter Summary ---
Author Organization [facility] Address [address] [place] [address] Care Team Providers Care Brusher Machine Name Role Phone Non-Staff, Physician Primary Care Provider Unava ilable Encounter Details Date Type Department Care Team (Late st Contact Info) Description 08/15/2007 Emergency [facility] Emergency Department [address] [place] [address] Ed, Physician NO ADDRESS ON FILE Prabhjot Bartlett PA [address] [place] [address] Lumbago; Personal History of Injury, Presenting Hazards to Health; Personal History of Allergy to Penicillin; Personal History of Allergy to Other Specified Medicinal Agents Social History Tobacco Use Types Packs/Day Years Used Date Smoking Tobacco: Never Assessed Comments Unknown Sex and Gender Information Value Date Recorded Sex Assigned at Not on file Legal 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
--- OUTSIDE RECORDS SUMMARY | 2025-05-23 15:07 | XMS_ITS | Encounter Summary ---
Author Organization [facility] Address [address] [place] [address] Care Team Providers Care Fitness Attendant Name Role Phone Non-Staff, Physician Primary Care Provider Unava ilable Encounter Details Date Type Department Care Team (Late st Contact Info) Description 08/07/2007 Outpatient Historical [facility] [address] 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
--- OUTSIDE RECORDS SUMMARY | 2025-05-23 15:07 | XMS_ITS | Encounter Summary ---
Author Organization [facility] Address [address] [place] [address] Care Team Providers Care Forest Nursery Supervisor Name Role Phone Non-Staff, Physician Primary Care Provider Unava ilable Encounter Details Date Type Department Care Team (Late st Contact Info) Description 07/28/2007 Emergency [facility] Emergency Department [address] [place] [address] Ed, Physician NO ADDRESS ON [...] on file Legal Sex Female 6:52 AM GENERAL TELLER Gender Identity Not on file Sexual Orientation Not on file documented as of this encounter Plan of Treatment Not on file documented as of this encounter Procedures Procedure Name Priority Date/Time Associated Diagnosis Comments POC GLUCOSE Routine 07/28/2007 3:58 PM GENERAL TELLER documented in this encounter Results * (ABNORMAL) POC GLUCOSE (07/28/2007 3:58 PM GENERAL TELLER) GLUCOSE POC 101(H) 60 - 100 mg/dL INTERFACE SYSTEM 07/28/2007 3:58 PM GENERAL TELLER Farshad [place] MD POINT OF CARE TESTING [...] agent documented in this encounter Care Teams Forest Nursery Supervisor Relationship Specialty Start Date End Date Non-Staff, Physician NO ADDRESS ON FILE PCP - General 07/02/07 documented as of this encounter
--- OUTSIDE RECORDS SUMMARY | 2025-05-23 15:07 | XMS_ITS | Encounter Summary ---
Author Organization [facility] Address [address] [place] [address] Care Team Providers Care Business Support Professional Name Role Phone Non-Staff, Physician Primary Care Provider Unava ilable Encounter Details Date Type Department Care Team (Late st Contact Info) Description 07/27/2007 Emergency [facility] Emergency Department [address] [place] [address] Ed, Physician NO ADDRESS ON FILE Justen Lipscomb MD NO ADDRESS ON FILE Social History Tobacco Use Types Packs/Day Years Used Date Smoking Tobacco: Never Assessed Comments Unknown Sex and Gender Information Value Date Recorded Sex Assigned at Not on file Legal Sex Female 6:52 AM ACTIMIZE ARCHITECT Gender Identity Not on file Sexual Orientation Not on file documented as of this encounter Plan of Treatment Not on file documented as of this encounter Visit Diagnoses Not on filedocumented in this encounter Care Teams Business Support Professional Relationship Specialty Start Date End Date Non-Staff, Physician NO ADDRESS ON FILE PCP - General 07/02/07 documented as of this encounter
--- OUTSIDE RECORDS SUMMARY | 2025-05-23 15:07 | XMS_ITS | Encounter Summary ---
Author Organization [facility] Address [address] [place] [address] Care Team Providers Care Emery Wheel Molder Name Role Phone Non-Staff, Physician Primary Care Provider Unava ilable Encounter Details Date Type Department Care Team (Late st Contact Info) Description 08/01/[address] [facility] Emergency Department [address] [place] [address] Ed, Physician NO ADDRESS ON FILE Maxine Hodges MD [address] [facility] [address] [place] [address] Other and Unspecified Ovarian Cyst; Personal History of Peptic Ulcer Disease; Personal History of Allergy to Analgesic Agent; Personal History of Allergy to Penicillin Social History Tobacco Use Types Packs/Day Years Used Date Smoking Tobacco: Never Assessed Comments Unknown Sex and Gender Information Value Date Recorded Sex Assigned at Not on file Legal Sex Female 6:52 AM GOVERNMENT AFFAIRS SPECIALIST Gender Identity Not on file Sexual Orientation Not on file documented as of this encounter Plan of Treatment Not on file documented as of this encounter Procedures Procedure Name Priority Date/Time Associated Diagnosis Comments PT AND APTT Routine 08/01/2007 7:55 PM GOVERNMENT AFFAIRS SPECIALIST CBC WITH DIFFERENTIAL Routine 08/01/2007 7:55 PM GOVERNMENT AFFAIRS SPECIALIST HCG QUANTITATIVE, BLOOD Routine 08/01/2007 7:55 PM GOVERNMENT AFFAIRS SPECIALIST BASIC METABOLIC PANEL Routine 08/01/2007 7:55 PM GOVERNMENT AFFAIRS SPECIALIST documented in this encounter Results * BETA HCG QUANTITATIVE, BLOOD (08/01/2007 7:55 PM GOVERNMENT AFFAIRS SPECIALIST) CHORIONIC GONADOTROPIN, TOTAL <2.0 0.0 - 10.0 mlU/ML INTERFACE SYSTEM 08/01/2007 7:55 PM GOVERNMENT AFFAIRS SPECIALIST us Maxine Hodges MD CHEMISTRY ORDERABLES Edited Performing Organization Address [facility] Phone Number INTERFACE SYSTEM Refer to clinic/hospital department * (ABNORMAL) PT AND APTT (08/01/2007 7:55 PM GOVERNMENT AFFAIRS SPECIALIST) Pathologist [facility] PROTIME 12.5(L) 12.8 - 15.8 Secs INTERFACE SYSTEM INR 0.8 INTERFACE SYSTEM PTT 26.4 21.6 - 35.6 Secs INTERFACE SYSTEM 08/01/2007 7:55 PM GOVERNMENT AFFAIRS SPECIALIST us Maxine Hodges MD HEMATOLOGY ORDERABLES Edite d Performing Organization Address [facility] Number INTERFACE SYSTEM Refer to clinic/hospital department * BASIC METABOLIC PANEL (08/01/2007 7:55 PM GOVERNMENT AFFAIRS SPECIALIST) Pathologist [facility] GLUCOSE 95 70 - 110 mg/dL INTERFACE [...] 295 mOsm/Kg INTERFACE SYSTEM 08/01/2007 7:55 PM GOVERNMENT AFFAIRS SPECIALIST us Maxine Hodges MD CHEMISTRY ORDERABLES Edited Performing Organization Address [facility] Phone Number INTERFACE SYSTEM Refer to clinic/hospital department * (ABNORMAL) CBC WITH DIFFERENTIAL (08/01/2007 7:55 PM GOVERNMENT AFFAIRS SPECIALIST) Pathologist [facility] WBC 8.9 4.5 - 11.0 K/ul INTERFACE [...] Automated Diff INTERFACE SYSTEM 08/01/2007 7:55 PM GOVERNMENT AFFAIRS SPECIALIST Maxine Hodges MD HEMATOLOGY ORDERABLES Edite d INTERFACE SYSTEM Refer to clinic/hospital department documented in this encounter Visit Diagnoses Diagnosis Other and unspecified ovarian cyst Personal history of peptic ulcer disease Personal history of allergy to analgesic agent Personal history of allergy to penicillin documented in this encounter Care Teams Emery Wheel Molder Relationship Specialty Start Date End Date Non-Staff, Physician NO ADDRESS ON FILE PCP - General 07/02/07 documented as of this encounter
--- OUTSIDE RECORDS SUMMARY | 2025-05-23 15:07 | XMS_ITS | Patient Health Record ---
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) Other abnormal findings on blood examination (790.99) 01/16/20 18 Problem resolved confirmed [id number]- Problem Pain in limb (15804430) Leg pain (729.5) 09/06/19 16 Active confirmed [id number]- Problem Migraine with aura (2026006) Classic migraine (346.00) 12/15/19 18 Active confirmed [id number]- Problem Pain in female pelvis (708460336) Female pelvic pain (625.9) 09/06/19 16 Problem resolved confirmed [id number]- Problem Weight loss (916242892) Weight loss (783.9) 11/06/19 18 Problem resolved confirmed [id number]- Problem Unexplained weight loss (851306602) Unexplained weight loss (783.21) 12/26/19 18 Active confirmed [id number]- Problem Emphysema (56463440) Emphysema, other (492.8) 09/06/19 16 Problem resolved confirmed [id number]- Problem Hip pain (39619920) Hip pain (719.45) 09/06/19 16 Active confirmed [id number]- Problem Exposure to communicable disease (230320498) Contact with or exposure to communicable diseases, unspecified (V01.9) 09/06/19 16 Problem resolved confirmed [id number] 11- Problem Anemia (427647761) Other specified anemia (285.8) 11/06/19 18 Active confirmed [id number]- Problem Screening for malignant neoplasm of breast (319663065) Screening for breast cancer, unspecified (V76.10) 12/26/19 18 Problem resolved confirmed [id number] 11- Plan Of Treatment No Information
--- OUTSIDE RECORDS SUMMARY | 2025-05-23 15:07 | XMS_ITS | Encounter Summary ---
Author Organization [employer] [facility] Address [address] [place] [address] Care Team Providers Care Check Writing Machine Operator Name Role Phone Non-Staff, Physician Primary Care Provider Unava ilable Encounter Details Date Type Department Care Team (Late st Contact Info) Description 08/02/2007 Outpatient [facility] [address] [place] [address] AMBULANCE, [facility] Chronic Obstructive Asthma, Unspecified (CMS/HCC); Tobacco Use Disorder; Encounter for Long-Term (Current) Use of Other Medications; Personal History of Allergy to Penicillin; Personal History of Allergy to Analgesic Agent Social History Tobacco Use Types Packs/Day Years Used Date Smoking Tobacco: Never Assessed Comments Unknown Sex and Gender Information Value Date Recorded Sex Assigned at Not on file Legal Sex Female 6:52 AM RESEARCH AND DEVELOPMENT DIRECTOR Gender Identity Not on file Sexual Orientation [...] agent documented in this encounter Care Teams Check Writing Machine Operator Relationship Specialty Start Date End Date Non-Staff, Physician NO ADDRESS ON FILE PCP - General 07/02/07 documented as of this encounter
--- OUTSIDE RECORDS SUMMARY | 2025-05-23 15:07 | XMS_ITS | Encounter Summary ---
Author Organization [facility] Address [address] [place] [address] Care Team Providers Care Marketing/Sales Person Name Role Phone Non-Staff, Physician Primary Care Provider Unava ilable Encounter Details Date Type Department Care Team (Late st Contact Info) Description 07/18/2007 Emergency [facility] Emergency Department [address] [place] [address] Ed, Physician NO ADDRESS ON FILE Justen Lipscomb MD NO ADDRESS ON FILE Social History Tobacco Use Types Packs/Day Years Used Date Smoking Tobacco: Never Assessed Comments Unknown Sex and Gender Information Value Date Recorded Sex Assigned at Not on file Legal Sex Female 6:52 AM DIRECTOR OF OUTREACH Gender Identity Not on file Sexual Orientation Not on file documented as of this encounter Plan of Treatment Not on file documented as of this encounter Procedures Procedure Name Priority Date/Time Associated Diagnosis Comments CBC WITH DIFFERENTIAL Routine 07/18/2007 3:32 PM DIRECTOR OF OUTREACH COMPREHENSIVE METABOLIC PANEL Routine 07/18/2007 3:32 PM DIRECTOR OF OUTREACH documented in this encounter Results * (ABNORMAL) COMPREHENSIVE METABOLIC PANEL (07/18/2007 3:32 PM DIRECTOR OF OUTREACH) GLUCOSE 94 70 - 110 mg/dL INTERFACE [...] 295 mOsm/Kg INTERFACE SYSTEM 07/18/2007 3:32 PM DIRECTOR OF OUTREACH us Physician Sj Ed CHEMISTRY ORDERABLES Edited INTERFACE SYSTEM Refer to clinic/hospital department * (ABNORMAL) CBC WITH DIFFERENTIAL (07/18/2007 3:32 PM DIRECTOR OF OUTREACH) WBC 6.5 4.5 - 11.0 K/ul INTERFACE [...] Automated Diff INTERFACE SYSTEM 07/18/2007 3:32 PM DIRECTOR OF OUTREACH us Physician Sj Ed HEMATOLOGY ORDERABLES Edited INTERFACE SYSTEM Refer to clinic/hospital department documented in this encounter Visit Diagnoses Not on filedocumented in this encounter Care Teams Marketing/Sales Person Relationship Specialty Start Date End Date Non-Staff, Physician NO ADDRESS ON FILE PCP - General 07/02/07 documented as of this encounter
--- OUTSIDE RECORDS SUMMARY | 2025-05-23 15:07 | XMS_ITS | Encounter Summary ---
Author Organization [facility] Address [address] [place] [address] Care Team Providers Care Crew Boat Operator Name Role Phone Non-Staff, Physician Primary Care Provider Unava ilable Encounter Details Date Type Department Care Team (Late st Contact Info) Description 08/14/2007 Outpatient [facility] [address] [place] [address] AMBULANCE, [facility] Chronic Airway Obstruction, not Elsewhere Classified (CMS/[facility]); Encounter for Long-Term (Current) Use of Other Medications; Personal History of Allergy to Penicillin; Personal History of Allergy to Analgesic Agent Social History Tobacco Use Types Packs/Day Years Used Date Smoking Tobacco: Never Assessed Comments Unknown Sex and Gender Information Value Date Recorded Sex Assigned at Not on file Legal Sex Female 6:52 AM ECONOMIC HISTORIAN Gender Identity Not on file Sexual Orientation [...] agent documented in this encounter Care Teams Crew Boat Operator Relationship Specialty Start Date End Date Non-Staff, Physician NO ADDRESS ON FILE PCP - General 07/02/07 documented as of this encounter
--- OUTSIDE RECORDS SUMMARY | 2025-05-23 15:07 | XMS_ITS | Encounter Summary ---
Author Organization [facility] Address [address] [place] [address] Care Team Providers Care Coal Carrier Name Role Phone Non-Staff, Physician Primary Care Provider Unava ilable Encounter Details Date Type Department Care Team (Late st Contact Info) Description 07/17/2007 Outpatient Historical [facility] [address] [place] [address] AMBULANCE, [facility] Social History Tobacco Use Types Packs/Day Years Used Date Smoking Tobacco: Never Assessed Comments Unknown Sex and Gender Information Value Date Recorded Sex Assigned at Not on file Legal Sex Female 6:52 AM RESIDENT ASSISTANT Gender Identity Not on file Sexual Orientation Not on file documented as of this encounter Plan of Treatment Not on file documented as of this encounter Visit Diagnoses Not on filedocumented in this encounter Care Teams Coal Carrier Relationship Specialty Start Date End Date Non-Staff, Physician NO ADDRESS ON FILE PCP - General 07/02/07 documented as of this encounter
--- OUTSIDE RECORDS SUMMARY | 2025-05-23 15:07 | XMS_ITS | Clinical Summary ---
Author Organization [facility] Address [address] [facility] Attn: [place] [address] Care Team Providers Care Ground Helper Street Railway Name Role Phone Non-Staff, Physician Primary Care Provider Unava ilable Social History Tobacco Use Types Packs/Day Years Used Date Smoking Tobacco: Never Assessed Comments Unknown Sex and Gender Information Value Date Recorded Sex Assigned at Not on file Legal Sex Female 12:02 PM DIRECTOR OF USER EXPERIENCE Gender Identity Not on file Sexual Orientation Not on file Plan of Treatment Upcoming Encounters Date Type Department Care Team (Late st Contact Info) Description 09/13/2025 12:00 PM DIRECTOR OF USER EXPERIENCE Office Visit [facility] [place] [address] [place] [address] Yevgeniy Allen MD [address] [place] [address] Health Maintenance Due Date Last [...] age to complete this topic Insurance MEDICAID [place] Care Teams Ground [address] Railway Relationship Specialty Start Date End Date Non-Staff, Physician NO ADDRESS ON FILE PCP - General 07/02/07
--- OUTSIDE RECORDS SUMMARY | 2025-05-23 15:07 | XMS_ITS | Encounter Summary ---
Author Organization [facility] Address [address] [place] [address] Care Team Providers Care Warm In Name Role Phone Non-Staff, Physician Primary Care Provider Unava ilable Encounter Details Date Type Department Care Team (Late st Contact Info) Description 08/01/2007 Outpatient Historical [facility] [address] 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
--- OUTSIDE RECORDS SUMMARY | 2025-05-23 15:07 | XMS_ITS | Encounter Summary ---
Author Organization [facility] Address [address] [place] [address] Care Team Providers Care Gang Vibrator Operator Name Role Phone Non-Staff, Physician Primary Care Provider Unava ilable Encounter Details Date Type Department Care Team (Late st Contact Info) Description 07/30/2007 Outpatient [facility] [address] 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
--- OUTSIDE RECORDS SUMMARY | 2025-05-23 15:07 | XMS_ITS | Encounter Summary ---
Author Organization [facility] Address [address] [place] [address] Care Team Providers Care Shop Fitter Name Role Phone Non-Staff, Physician Primary Care Provider Unava ilable Encounter Details Date Type Department Care Team (Late st Contact Info) Description 07/28/2007 Outpatient Historical [facility] [address] [place] [address] AMBULANCE, [facility] Social History Tobacco Use Types Packs/Day Years Used Date Smoking Tobacco: Never Assessed Comments Unknown Sex and Gender Information Value Date Recorded Sex Assigned at Not on file Legal Sex Female 6:52 AM BOOT MAKER Gender Identity Not on file Sexual Orientation Not on file documented as of this encounter Plan of Treatment Not on file documented as of this encounter Visit Diagnoses Not on filedocumented in this encounter Care Teams Shop Fitter Relationship Specialty Start Date End Date Non-Staff, Physician NO ADDRESS ON FILE PCP - General 07/02/07 documented as of this encounter
--- OUTSIDE RECORDS SUMMARY | 2025-05-23 15:07 | XMS_ITS | Encounter Summary ---
Author Organization [facility] Address [address] [place] [address] Care Team Providers Care Healthcare Recruiter Name Role Phone Non-Staff, Physician Primary Care Provider Unava ilable Encounter Details Date Type Department Care Team (Late st Contact Info) Description 07/30/2007 Emergency [facility] Emergency Department [address] [place] [address] Ed, Physician NO ADDRESS ON FILE Megan Aquino MD [address] [place] [address] Other Emphysema (CMS/HCC); Fall from Other Slipping, Tripping, or Stumbling; Place of Occurrence, Home Social History Tobacco Use Types Packs/Day Years Used Date Smoking Tobacco: Never Assessed Comments Unknown Sex and Gender Information Value Date Recorded Sex Assigned at Not on file Legal Sex Female 6:52 AM STEAM BOX TENDER Gender Identity Not on file Sexual Orientation Not on file documented as of this encounter Plan of Treatment Not on file documented as of this encounter Visit Diagnoses Diagnosis Other emphysema Fall from other slipping, tripping, or stumbling Place of occurrence, home documented in this encounter Care Teams Healthcare Recruiter Relationship Specialty Start Date End Date Non-Staff, Physician NO ADDRESS ON FILE PCP - General 07/02/07 documented as of this encounter
--- OUTSIDE RECORDS SUMMARY | 2025-05-23 15:07 | XMS_ITS | Clinical Summary ---
Author Organization [facility] Address [address] [place] [address] Phone Care Team Providers Care Police Academy Instructor Name Role Phone Non-Staff, Physician Primary Care Provider Unava ilable Social History Tobacco Use Types Packs/Day Years Used Date Smoking Tobacco: Never Assessed Comments Unknown Sex and Gender Information Value Date Recorded Sex Assigned at Not on file Legal Sex Female 6:52 AM THERMAL CUTTER HAND Gender Identity Not on file Sexual Orientation [...] age to complete this topic Insurance MEDICAID [place] Care Teams Police Academy Instructor Relationship Specialty Start Date End Date Non-Staff, Physician NO ADDRESS ON FILE PCP - General 07/02/07
--- OUTSIDE RECORDS SUMMARY | 2025-05-23 15:07 | XMS_ITS | Encounter Summary ---
Author Organization [facility] Address [address] [place] [address] Care Team Providers Care Copper Plate Lithographer Name Role Phone Non-Staff, Physician Primary Care Provider Unava ilable Encounter Details Date Type Department Care Team (Late st Contact Info) Description 07/18/2007 Outpatient Historical [place] [facility] [address] [place] [address] AMBULANCE, [facility] Social History Tobacco Use Types Packs/Day Years Used Date Smoking Tobacco: Never Assessed Comments Unknown Sex and Gender Information Value Date Recorded Sex Assigned at Not on file Legal Sex Female 6:52 AM STRETCHING PRESS OPERATOR Gender Identity Not on file Sexual Orientation Not on file documented as of this encounter Plan of Treatment Not on file documented as of this encounter Visit Diagnoses Not on filedocumented in this encounter Care Teams Copper Plate Lithographer Relationship Specialty Start Date End Date Non-Staff, Physician NO ADDRESS ON FILE PCP - General 07/02/07 documented as of this encounter
--- OUTSIDE RECORDS SUMMARY | 2025-05-23 15:07 | XMS_ITS | Encounter Summary ---
Author Organization [employer] [facility] [facility] Address [address] [place] [address] Care Team Providers Care Chandelier Maker Name Role Phone Non-Staff, Physician Primary Care Provider Unava ilable Encounter Details Date Type Department Care Team (Late st Contact Info) Description 07/01/2007 Outpatient Historical HIS IN BED Sj Ed, Physician NO ADDRESS ON FILE Marissa Hardin MD NO ADDRESS ON FILE Chon Mobley MD [address] [place] [address] Namita Grant MD [address] [place] [address] Luis Alfredo Slade MD [address] [place] [address] Amado Hope MD NO ADDRESS ON FILE Mal Baer, DO [address] [place] [address] Adjustment Disorder with Depressed Mood; [...] on file Legal Sex Female 6:52 AM ART COORDINATOR Gender Identity Not on file Sexual Orientation Not on file documented as of this encounter Plan of Treatment Not on file documented as of this encounter Procedures Procedure Name Priority Date/Time Associated Diagnosis Comments CBC WITH DIFFERENTIAL Routine 07/09/2007 9:30 AM ART COORDINATOR DIFFERENTIAL, MANUAL Routine 07/07/2007 2:30 AM ART COORDINATOR CBC WITH DIFFERENTIAL Routine 07/07/2007 2:30 AM ART COORDINATOR BASIC METABOLIC PANEL Routine 07/07/2007 2:30 AM ART COORDINATOR URINALYSIS MICROSCOPY ONLY Routine 07/06/2007 1:09 PM ART COORDINATOR URINALYSIS W/REFLEX MICROSCOPIC Routine 07/06/2007 1:09 PM ART COORDINATOR ENDOMYSIAL IGA AUTOANTIBODY Routine 07/06/2007 11:38 AM ART COORDINATOR HEMOGLOBIN AND HEMATOCRIT Routine 07/05/2007 3:28 AM ART COORDINATOR CBC WITH DIFFERENTIAL Routine 07/04/2007 2:53 AM ART COORDINATOR BASIC METABOLIC PANEL Routine 07/04/2007 2:53 AM ART COORDINATOR HEMOGLOBIN AND HEMATOCRIT Routine 07/03/2007 4:05 AM ART COORDINATOR HEMOGLOBIN AND HEMATOCRIT Routine 07/02/2007 2:09 PM ART COORDINATOR CARDIAC ENZYMES Routine 07/02/2007 6:27 AM ART COORDINATOR CBC WITH DIFFERENTIAL Routine 07/02/2007 4:23 AM ART COORDINATOR COMPREHENSIVE METABOLIC PANEL Routine 07/02/2007 4:23 AM ART COORDINATOR FOLATE, SERUM Routine 07/02/2007 12:04 AM ART COORDINATOR IRON, TIBC, AND PERCENT SATURATION Routine 07/02/2007 12:04 AM ART COORDINATOR CARDIAC ENZYMES Routine 07/02/2007 12:04 AM ART COORDINATOR FERRITIN Routine 07/02/2007 12:04 AM ART COORDINATOR VITAMIN B12 LEVEL Routine 07/02/2007 12: 04 AM ART COORDINATOR XR CHEST PA OR AP 1 VW Routine 7 7:27 PM ART COORDINATOR CARDIAC ENZYMES Routine 07/01/2007 6:11 PM ART COORDINATOR CBC WITH DIFFERENTIAL Routine 07/01/2007 6:11 PM ART COORDINATOR PTT Routine 07/01/2007 6:11 PM ART COORDINATOR PROTIME-INR Routine 07/01/2007 6:11 PM ART COORDINATOR HCG QUANTITATIVE, BLOOD Routine 07/01/2007 6:11 PM ART COORDINATOR TSH Routine 07/01/2007 6:11 PM ART COORDINATOR BASIC METABOLIC PANEL Routine 07/01/2007 6:11 PM ART COORDINATOR documented in this encounter Results * (ABNORMAL) CBC WITH DIFFERENTIAL (07/09/2007 9:30 AM ART COORDINATOR) WBC 6.3 4.5 - 11.0 K/ul INTERFACE [...] Automated Diff INTERFACE SYSTEM 07/09/2007 9:30 AM ART COORDINATOR Narrative INTERFACE SYSTEM - 07/09/2007 9:41 AM ART COORDINATOR Ordered by an unspecified provider. Historical Provider HEMATOLOGY ORDERABLES Edited INTERFACE SYSTEM Refer to clinic/hospital department * (ABNORMAL) DIFFERENTIAL, MANUAL (07/07/2007 2:30 AM ART COORDINATOR) NEUTROPHILS, SEG 60 36 - 66 % [...] Seen INTERFA CE SYSTEM 07/07/2007 2:30 AM ART COORDINATOR Chon Mobley MD HEMATOLOGY ORDERABLES COM Ed ited INTERFACE SYSTEM Refer to clinic/hospital department * (ABNORMAL) BASIC METABOLIC PANEL (07/07/2007 2:30 AM ART COORDINATOR) GLUCOSE 69(L) 70 - 110 mg/dL INTERFACE [...] 295 mOsm/Kg INTERFACE SYSTEM 07/07/2007 2:30 AM ART COORDINATOR Chon Mobley MD CHEMISTRY ORDERABLES Edited Performing Organization Address [facility] de Phone Number INTERFACE SYSTEM Refer to clinic/hospital department * (ABNORMAL) CBC WITH DIFFERENTIAL (07/07/2007 2:30 AM ART COORDINATOR) Pathologist [facility] WBC 6.0 4.5 - 11.0 K/ul INTERFACE [...] 12.8 Fl INTERFACE SYSTEM 07/07/2007 2:30 AM ART COORDINATOR Chon Mobley MD HEMATOLOGY ORDERABLES Edited Performing Organization Address [facility] de Phone Number INTERFACE SYSTEM Refer to clinic/hospital department * (ABNORMAL) URINALYSIS MICROSCOPY ONLY (07/06/2007 1:09 PM ART COORDINATOR) WBC URINE 0-2 0 - 2 INTERFACE SYSTEM RBC UA 6-10(A) 0 - 2 INTERFACE SYSTEM HYALINE CAST None Seen 0 - 2 INTERFA CE SYSTEM BACTERIA UA Many(A) None Seen INTERFAC E SYSTEM 07/06/2007 1:09 PM ART COORDINATOR us Chon Mobley MD URINE ORDERABLES Edited Performing Organization Address [facility] Phone Number INTERFACE SYSTEM Refer to clinic/hospital department * (ABNORMAL) URINALYSIS (07/06/2007 1:09 PM ART COORDINATOR) COLOR UA Yellow Straw INTERFACE SYSTEM CLARITY [...] Yes(A) No INTERFACE SYSTEM 07/06/2007 1:09 PM ART COORDINATOR us Chon Mobley MD URINE ORDERABLES Edited Performing Organization Address [facility] Phone Number INTERFACE SYSTEM Refer to clinic/hospital department * ENDOMYSIAL IGA AUTOANTIBODY (07/06/2007 11:38 AM ART COORDINATOR) ENDOMYSIAL AB IGA See Sep Report INTERFACE SYSTEM 07/06/2007 11:3 8 AM ART COORDINATOR us Chon Mobley MD CHEMISTRY ORDERABLES Edited Performing Organization Address [facility] Phone Number INTERFACE SYSTEM Refer to clinic/hospital department * (ABNORMAL) HEMOGLOBIN AND HEMATOCRIT (07/05/2007 3:28 AM ART COORDINATOR) HEMOGLOBIN 9.8(L) 12.0 - 16.0 g/dL INTERFACE SYSTEM HEMATOCRIT 33.1(L) 36.0 - 46.0 % INTERFACE SYSTEM 07/05/2007 3:28 AM ART COORDINATOR Chon Mobley MD HEMATOLOGY ORDERABLES Edited Performing Organization Address [facility] Phone Number INTERFACE SYSTEM Refer to clinic/hospital department * (ABNORMAL) BASIC METABOLIC PANEL (07/04/2007 2:53 AM ART COORDINATOR) GLUCOSE 91 70 - 110 mg/dL INTERFACE [...] 295 mOsm/Kg INTERFACE SYSTEM 07/04/2007 2:53 AM ART COORDINATOR Chon Mobley MD CHEMISTRY ORDERABLES Edited Performing Organization Address [facility] Phone Number INTERFACE SYSTEM Refer to clinic/hospital department * (ABNORMAL) CBC WITH DIFFERENTIAL (07/04/2007 2:53 AM ART COORDINATOR) WBC 6.6 4.5 - 11.0 K/ul INTERFACE [...] Automated Diff INTERFACE SYSTEM 07/04/2007 2:53 AM ART COORDINATOR Chon Mobley MD HEMATOLOGY ORDERABLES Edited Performing Organization Address [facility] de Phone Number INTERFACE SYSTEM Refer to clinic/hospital department * (ABNORMAL) HEMOGLOBIN AND HEMATOCRIT (07/03/2007 4:05 AM ART COORDINATOR) HEMOGLOBIN 9.8(L) 12.0 - 16.0 g/dL INTERFACE SYSTEM HEMATOCRIT 32.0(L) 36.0 - 46.0 % INTERFACE SYSTEM 07/03/2007 4:05 AM ART COORDINATOR Chon Mobley MD HEMATOLOGY ORDERABLES Edited Performing Organization Address City/[facility] de Phone Number INTERFACE SYSTEM Refer to clinic/hospital department * (ABNORMAL) HEMOGLOBIN AND HEMATOCRIT (07/02/2007 2:09 PM ART COORDINATOR) HEMOGLOBIN 9.8(L) 12.0 - 16.0 g/dL INTERFACE SYSTEM HEMATOCRIT 31.7(L) 36.0 - 46.0 % INTERFACE SYSTEM 07/02/2007 2:09 PM ART COORDINATOR Chon Mobley MD HEMATOLOGY ORDERABLES Edited Performing Organization Address City/[facility] Co de Phone Number INTERFACE SYSTEM Refer to clinic/hospital department * CARDIAC ENZYMES (07/02/2007 6:27 AM ART COORDINATOR) TROPONIN I <0.1 0.0 - 1.3 ng/mL INTERFACE SYSTEM Comment: As of 06 the Troponin Reference Range has changed from 0.0-1.5 ng/ml to 0.0- 1.3 ng/ml due to a change in testing methodology. CKMB <0.2 0.0 - 5.0 ng/mL INTERFACE SYSTEM 07/02/2007 6:27 AM ART COORDINATOR us Marissa Hardin MD CHEMISTRY ORDERABLES Edited Performing Organization Address [facility] de Phone Number INTERFACE SYSTEM Refer to clinic/hospital department * (ABNORMAL) COMPREHENSIVE METABOLIC PANEL (07/02/2007 4:23 AM ART COORDINATOR) GLOBULIN (CALC) 1.7(L) 2.4 - 3.9 g/dL [...] 295 mOsm/Kg INTERFACE SYSTEM 07/02/2007 4:23 AM ART COORDINATOR us Chon Mobley MD CHEMISTRY ORDERABLES Edited INTERFACE SYSTEM Refer to clinic/hospital department * (ABNORMAL) CBC WITH DIFFERENTIAL (07/02/2007 4:23 AM ART COORDINATOR) WBC 13.9(H) 4.5 - 11.0 K/ul INTERFACE [...] Automated Diff INTERFACE SYSTEM 07/02/2007 4:23 AM ART COORDINATOR us Chon Mobley MD HEMATOLOGY ORDERABLES Edited INTERFACE SYSTEM Refer to clinic/hospital department * CARDIAC ENZYMES (07/02/2007 12:04 AM ART COORDINATOR) TROPONIN I <0.1 0.0 - 1.3 ng/mL INTERFACE SYSTEM Comment: As of 06 the Troponin Reference Range has changed from 0.0-1.5 ng/ml to 0.0- 1.3 ng/ml due to a change in testing methodology. CKMB <0.2 0.0 - 5.0 ng/mL INTERFACE SYSTEM 07/02/2007 12:0 4 AM ART COORDINATOR us Marissa Hardin MD CHEMISTRY ORDERABLES Edited Performing Organization Address City/[facility] de Phone Number INTERFACE SYSTEM Refer to clinic/hospital department * (ABNORMAL) VITAMIN B12 (07/02/2007 12:04 AM ART COORDINATOR) VITAMIN B12 164(L) 211 - 911 pg/dL INTERFACE SYSTEM 07/02/2007 12:0 4 AM ART COORDINATOR us Chon Mobley MD CHEMISTRY ORDERABLES Edited Performing Organization Address [facility] de Phone Number INTERFACE SYSTEM Refer to clinic/hospital department * FOLATE, SERUM (07/02/2007 12:04 AM ART COORDINATOR) FOLATE, SERUM 12.54 >=5.38 ng/dL INTERFACE SYSTEM 07/02/2007 12:0 4 AM ART COORDINATOR us Chon Mobley MD CHEMISTRY ORDERABLES Edited Performing Organization Address [facility] de Phone Number INTERFACE SYSTEM Refer to clinic/hospital department * (ABNORMAL) FERRITIN (07/02/2007 12:04 AM ART COORDINATOR) FERRITIN 3.0(L) 10.0 - 291.0 ng/mL INTERFACE SYSTEM 07/02/2007 12:0 4 AM ART COORDINATOR Result Luciana Mobley MD CHEMISTRY ORDERABLES Edited Performing Organization Address City/[facility] de Phone Number INTERFACE SYSTEM Refer to clinic/hospital department * IRON AND TIBC (07/02/2007 12:04 AM ART COORDINATOR) TIBC 365 250 - 450 ug/dL INTERFACE SYSTEM IRON % SATURATION 45 15 - 50 % INTERFACE SYSTEM IRON 164 50 - 170 ug/dL INTERFACE SYSTEM Comment: As of Sep 11, 2005 the reference ranges have changed due to new instrumentation. 07/02/2007 12:0 4 AM ART COORDINATOR Chon Mobley MD CHEMISTRY ORDERABLES Edited INTERFACE SYSTEM Refer to clinic/hospital department * XR CHEST PA OR AP (07/01/2007 7:27 PM ART COORDINATOR) Anatomical Region Laterality Modality Chest Other 07/01/2007 7:27 PM ART COORDINATOR Narrative 07/01/2007 7:27 PM ART COORDINATOR Exam: Chest - PortableDate/Time of Exam: Jul [...] BETA HCG QUANTITATIVE, BLOOD (07/01/2007 6:11 PM ART COORDINATOR) CHORIONIC GONADOTROPIN, TOTAL <2.0 0.0 - 10.0 mlU/ML INTERFACE SYSTEM Comment: Total HCG levels between 10 mIU/mL and 25 mIU/mL may be indicative of early but need to be correlated with other clinical findings. HCG ranges during normal , as reported by the lime kiln tender, are summarized as follows: Gestational Age Expected hCG Values (mIU/ml) 0.2-1 Weeks 5 - 50 1-2 Weeks 50 - 500 2-3 Weeks 100 - 5,000 3-4 Weeks 1,000 - 50,000 5-6 Weeks 10,000 - 100,000 6-8 Weeks 15,000 - 200,000 2-3 Months 10,000 - 100,000 07/01/2007 6:11 PM ART COORDINATOR Chon Mobley MD CHEMISTRY ORDERABLES Edited Performing Organization Address [facility] de Phone Number INTERFACE SYSTEM Refer to clinic/hospital department * TSH (07/01/2007 6:11 PM ART COORDINATOR) TSH 1.770 0.350 - 5.500 uIU/ml INTERFACE SYSTEM 07/01/2007 6:11 PM ART COORDINATOR Chon Mobley MD CHEMISTRY ORDERABLES Edited Performing Organization Address [facility] Phone Number INTERFACE SYSTEM Refer to clinic/hospital department * (ABNORMAL) CBC WITH DIFFERENTIAL (07/01/2007 6:11 PM ART COORDINATOR) WBC 6.0 4.5 - 11.0 K/ul INTERFACE [...] Automated Diff INTERFACE SYSTEM 07/01/2007 6:11 PM ART COORDINATOR us Marissa Hardin MD HEMATOLOGY ORDERABLES Edited Performing Organization Address City/State/[facility] Co de Phone Number INTERFACE SYSTEM Refer to clinic/hospital department * PTT (07/01/2007 6:11 PM ART COORDINATOR) PTT 23.1 21.6 - 35.6 Secs INTERFACE SYSTEM Comment: Therapeutic Range: Hi-level PE/DVT heparin protocol 80.1 -95.0 sec Lo-level PE/DVT heparin protocol 67.1 - 80.0 sec Cardiac Heparin Protocol 67.1 - 85.0 sec Neuro Heparin Protocol 67.1 - 80.0 sec As of 07/09/2006 note change in APTT Normal Range. 07/01/2007 6:11 PM ART COORDINATOR us Marissa Hardin MD HEMATOLOGY ORDERABLES Edited INTERFACE SYSTEM Refer to clinic/hospital department * PROTIME-INR (07/01/2007 6:11 PM ART COORDINATOR) PROTIME 14.0 13.0 - 15.7 Secs INTERFACE SYSTEM Comment: As of 06 note change in normal range. INR 1.0 INTERFACE SYSTEM Comment: Expected Values for INR: DVT/PE Goal INR 2.5; range 2.0 - 3.0 Valve Replacement Tissue Goal INR 2.5; range 2.0 - 3.0 Mechanical Goal INR 3.0; range 2.5 - 3.5 POST-IA Goal INR 2.5; range 2.0 - 3.0 or Goal 3.0; range 2.5 - 3.5 Atrial Fibrillation Goal INR 2.5; range 2.0 - 3.0 Ischemic Stroke Goal INR 2.5; range 2.0 - 3.0 For additional information see Guidelines for Anticoagulation available from the pharmacy Aleksandra Otero, Pharm D. 07/01/2007 6:11 PM ART COORDINATOR us Marissa Hardin MD HEMATOLOGY ORDERABLES Edited Performing Organization Address [facility] Phone Number INTERFACE SYSTEM Refer to clinic/hospital department * (ABNORMAL) BASIC METABOLIC PANEL (07/01/2007 6:11 PM ART COORDINATOR) GLUCOSE 98 70 - 110 mg/dL INTERFACE [...] 295 mOsm/Kg INTERFACE SYSTEM 07/01/2007 6:11 PM ART COORDINATOR us Marissa Hardin MD CHEMISTRY ORDERABLES Edited Performing Organization Address [facility]/ZIP Co de Phone Number INTERFACE SYSTEM Refer to clinic/hospital department * CARDIAC ENZYMES (07/01/2007 6:11 PM ART COORDINATOR) TROPONIN I <0.1 0.0 - 1.3 ng/mL INTERFACE SYSTEM Comment: As of 06 the Troponin Reference Range has changed from 0.0-1.5 ng/ml to 0.0- 1.3 ng/ml due to a change in testing methodology. CKMB <0.2 0.0 - 5.0 ng/mL INTERFACE SYSTEM 07/01/2007 6:11 PM ART COORDINATOR us Marissa Hardin MD CHEMISTRY ORDERABLES Edited Performing Organization Address [facility] Co de Phone Number INTERFACE SYSTEM [...] occurrence documented in this encounter Care Teams Chandelier Maker Relationship Specialty Start Date End Date Non-Staff, Physician NO ADDRESS ON FILE PCP - General 07/02/07 documented as of this encounter
--- OUTSIDE RECORDS SUMMARY | 2025-05-23 15:07 | XMS_ITS | Encounter Summary ---
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
--- OUTSIDE RECORDS SUMMARY | 2025-05-23 15:07 | XMS_ITS | Encounter Summary ---
Author Organization [facility] Address [address] [place] [address] Care Team Providers Care Supervisor Grounds Name Role Phone Non-Staff, Physician Primary Care Provider Unava ilable Encounter Details Date Type Department Care Team (Late st Contact Info) Description 07/27/2007 Outpatient Historical [facility] [address] 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
--- OUTSIDE RECORDS SUMMARY | 2025-05-23 15:07 | XMS_ITS | Encounter Summary ---
Author Organization [facility] Address [address] [place] [address] Care Team Providers Care Single Ending Machine Operator Name Role Phone Non-Staff, Physician Primary Care Provider Unava ilable Encounter Details Date Type Department Care Team (Late st Contact Info) Description 07/06/2007 Outpatient Historical [facility] [address] 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
--- OUTSIDE RECORDS SUMMARY | 2025-05-23 15:07 | XMS_ITS | Encounter Summary ---
Author Organization [facility] Address [address] [place] [address] Care Team Providers Care Compliance Associate Name Role Phone Non-Staff, Physician Primary Care Provider Unava ilable Encounter Details Date Type Department Care Team (Late st Contact Info) Description 07/17/2007 Emergency [facility] Emergency Department [address] [place] [address] Ed, Physician NO ADDRESS ON FILE Renetta Abreu MD [address] [place] [address] Social History Tobacco Use Types Packs/Day Years Used Date Smoking Tobacco: Never Assessed Comments Unknown Sex and Gender Information Value Date Recorded Sex Assigned at Not on file Legal Sex Female 6:52 AM LOAN COORDINATOR Gender Identity Not on file Sexual Orientation Not on file documented as of this encounter Plan of Treatment Not on file documented as of this encounter Procedures Procedure Name Priority Date/Time Associated Diagnosis Comments URINALYSIS MICROSCOPY ONLY Routine 07/17/2007 5:15 PM LOAN COORDINATOR CBC WITH DIFFERENTIAL Routine 07/17/2007 5:15 PM LOAN COORDINATOR URINALYSIS W/REFLEX MICROSCOPIC Routine 07/17/2007 5:15 PM LOAN COORDINATOR COMPREHENSIVE METABOLIC PANEL Routine 07/17/2007 5:15 PM LOAN COORDINATOR HCG QUANTITATIVE, BLOOD Routine 07/17/2007 5:00 PM LOAN COORDINATOR documented in this encounter Results * (ABNORMAL) URINALYSIS MICROSCOPY ONLY (07/17/2007 5:15 PM LOAN COORDINATOR) WBC URINE 3-5(A) 0 - 2 INTERFACE SYSTEM RBC UA 0-2 0 - 2 INTERFACE SYSTEM HYALINE CAST None Seen 0 - 2 INTERFA CE SYSTEM BACTERIA UA Many(A) None Seen INTERFAC E SYSTEM 07/17/2007 5:15 PM LOAN COORDINATOR Renetta Abreu MD URINE ORDERABLES Edited Performing Organization Address [facility] Phone Number INTERFACE SYSTEM Refer to clinic/hospital department * (ABNORMAL) URINALYSIS (07/17/2007 5:15 PM LOAN COORDINATOR) COLOR UA Yellow Straw INTERFACE SYSTEM [...] Yes(A) No INTERFACE SYSTEM 07/17/2007 5:15 PM LOAN COORDINATOR Result [facility] Renetta Abreu MD URINE ORDERABLES Edited Performing Organization Address [facility] Phone Number INTERFACE SYSTEM Refer to clinic/hospital department * (ABNORMAL) COMPREHENSIVE METABOLIC PANEL (07/17/2007 5:15 PM LOAN COORDINATOR) GLOBULIN (CALC) 2.6 2.4 - 3.9 g/dL [...] 295 mOsm/Kg INTERFACE SYSTEM 07/17/2007 5:15 PM LOAN COORDINATOR Renetta Abreu MD CHEMISTRY ORDERABLES Edited INTERFACE SYSTEM Refer to clinic/hospital department * (ABNORMAL) CBC WITH DIFFERENTIAL (07/17/2007 5:15 PM LOAN COORDINATOR) WBC 6.1 4.5 - 11.0 K/ul INTERFACE [...] Automated Diff INTERFACE SYSTEM 07/17/2007 5:15 PM LOAN COORDINATOR Renetta Abreu MD HEMATOLOGY ORDERABLES Edited Performing Organization Address City/[facility] Phone Number INTERFACE SYSTEM Refer to clinic/hospital department * BETA HCG QUANTITATIVE, BLOOD (07/17/2007 5:00 PM LOAN COORDINATOR) CHORIONIC GONADOTROPIN, TOTAL <2.0 0.0 - 10.0 mlU/ML INTERFACE SYSTEM 07/17/2007 5:00 PM LOAN COORDINATOR us Renetta Abreu MD CHEMISTRY ORDERABLES Edited Performing Organization Address [facility] Phone Number INTERFACE SYSTEM Refer to clinic/hospital department documented in this encounter Visit Diagnoses Not on filedocumented in this encounter Care Teams Compliance Associate Relationship Specialty Start Date End Date Non-Staff, Physician NO ADDRESS ON FILE PCP - General 07/02/07 documented as of this encounter
--- OUTSIDE RECORDS SUMMARY | 2025-05-23 15:08 | XMS_ITS | Encounter Summary ---
Author Organization [facility] Address [address] [place] [address] Care Team Providers Care Mantel Craftsman Name Role Phone Non-Staff, Physician Primary Care Provider Unava ilable Encounter Details Date Type Department Care Team (Late st Contact Info) Description 07/25/2007 Emergency [facility] Emergency Department [address] 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
--- OUTSIDE RECORDS SUMMARY | 2025-05-23 15:08 | XMS_ITS | Encounter Summary ---
Author Organization [employer] [facility] Address [address] [place] [address] Care Team Providers Care Retort Feeder Ground Bone Name Role Phone Non-Staff, Physician Primary Care Provider Unava ilable Encounter Details Date Type Department Care Team (Late st Contact Info) Description 11/13/2007 Outpatient Historical [facility] [address] [place] [address] AMBULANCE, [facility] AMBULANCE, [facility] Social History Tobacco Use Types Packs/Day Years Used Date Smoking Tobacco: Never Assessed Comments Unknown Sex and Gender Information Value Date Recorded Sex Assigned at Not on file 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
--- OUTSIDE RECORDS SUMMARY | 2025-05-23 15:08 | XMS_ITS | Encounter Summary ---
Author Organization [facility] Address [address] [place] [address] Care Team Providers Care Lunchroom Operator Name Role Phone Non-Staff, Physician Primary Care Provider Unava ilable Encounter Details Date Type Department Care Team (Late st Contact Info) Description 08/16/2007 Outpatient Historical [facility] [address] 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
--- OUTSIDE RECORDS SUMMARY | 2025-05-23 15:08 | XMS_ITS | Encounter Summary ---
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 Gender Identity Not on file Sexual Orientation [...] CDT) CREATININE 0.5(L) 0.7 - 1.2 mg/dL [facility] CALCIUM 9.0 8.4 - 10.5 mg/dL [facility] GLUCOSE 109 70 - 110 mg/dL [facility] CHLORIDE 105 95 - 110 mEq/L [facility] ANION GAP 10 9 - 20 mEq/L [facility] SODIUM 138 136 - 145 mEq/L [facility] BUN 2(L) 7 - 17 mg/dL [facility] CO2 27 22 - 32 mmol/l [facility] POTASSIUM 4.0 3.5 - 5.0 mEq/L [facility] OSMOLALITY, CALCULATED 281 275 - 295 mOsm/Kg [facility] Blood specimen (specimen) 11/17/2007 3:26 AM CDT 11/17/2007 3:54 AM CDT us Angel Rene DO CHEMISTRY ORDERABLES Final Result [facility] [address] [place] [address] * (ABNORMAL) CBC WITH DIFFERENTIAL (11/17/2007 3:26 AM CDT) HEMATOCRIT 29.9(L) 36.0 - 46.0 % [facility] EOSINOPHILS 12.3(H) 0.0 - 7.0 % [facility] PLATELETS 182 140 - 440 K/ul [facility] EOSINOPHIL ABSOLUTE 0.5 0.0 - 0.7 K/ul [facility] RBC 3.68(L) 4.20 - 5.40 Mil/ul [facility] LYMPHOCYTES 25.9 24.0 - 44.0 % [facility] MCHC 31.1 30.0 - 35.0 g/dL [facility] LYMPHOCYTE ABSOLUTE 1.0(L) 1.2 - 4.0 K/ul [facility] MCV 81.3(L) 84.0 - 103.0 Fl [facility] MPV 10.3 8.9 - 12.8 Fl [facility] BASOPHILS ABSOLUTE 0.0 0.0 - 0.2 K/ul [facility] BASOPHILS 0.3 0.0 - 1.0 % [facility] HEMOGLOBIN 9.3(L) 12.0 - 16.0 g/dL [facility] RDW 14.7(H) 11.0 - 14.5 % [facility] MONOCYTE ABSOLUTE 0.5 0.1 - 0.6 K/ul [facility] MONOCYTES 14.1(H) 2.0 - 10.0 % [facility] WBC 3.8(L) 4.5 - 11.0 K/ul [facility] MCH 25.3(L) 27.0 - 34.0 pg [facility] NEUTROPHIL ABSOLUTE 1.8(L) 2.0 - 8.0 K/ul [facility] NEUTROPHILS 47.4 42.2 - 75.2 % [facility] Blood specimen (specimen) 11/17/2007 3:26 AM CDT 11/17/2007 3:54 AM CDT us Angel Rene DO HEMATOLOGY ORDERABLES Mercedes l Result Performing Organization Address City/State/[facility] Co de Phone Number [facility] [address] [place] [address] * XR UPR GI AND SMALL BOWEL [...] By: Christal Acuña M.D. Date Signed: 11/19/07 [facility] Procedure Note Christal Acuña - 11/19/2007 [...] By: Christal Acuña M.D. Date Signed: 11/19/07 [facility] us Angel Rene DO DIAGNOSTIC IMAGING [...] CDT) BUN <2(L) 7 - 17 mg/dL [facility] CO2 31 22 - 32 mmol/l [facility] POTASSIUM 4.4 3.5 - 5.0 mEq/L [facility] OSMOLALITY, CALCULATED <287 275 - 295 mOsm/Kg [facility] CREATININE 0.6(L) 0.7 - 1.2 mg/dL [facility] CALCIUM 8.9 8.4 - 10.5 mg/dL [facility] GLUCOSE 111(H) 70 - 110 mg/dL [facility] CHLORIDE 104 95 - 110 mEq/L [facility] ANION GAP 10 9 - 20 mEq/L [facility] SODIUM 141 136 - 145 mEq/L [facility] Blood specimen (specimen) 11/15/2007 5:03 AM CDT 11/15/2007 6:00 AM CDT us Angel Rene DO CHEMISTRY ORDERABLES Final Result [facility] [address] [place] [address] * (ABNORMAL) CBC WITH DIFFERENTIAL (11/15/2007 5:03 AM CDT) LYMPHOCYTE ABSOLUTE 1.4 1.2 - 4.0 K/ul [facility] MCV 82.2(L) 84.0 - 103.0 Fl [facility] MPV 10.2 8.9 - 12.8 Fl [facility] BASOPHILS ABSOLUTE 0.0 0.0 - 0.2 K/ul [facility] BASOPHILS 0.1 0.0 - 1.0 % [facility] HEMOGLOBIN 9.6(L) 12.0 - 16.0 g/dL [facility] RDW 14.7(H) 11.0 - 14.5 % [facility] MONOCYTE ABSOLUTE 0.7(H) 0.1 - 0.6 K/ul [facility] MONOCYTES 9.6 2.0 - 10.0 % [facility] WBC 7.2 4.5 - 11.0 K/ul [facility] MCH 25.2(L) 27.0 - 34.0 pg [facility] NEUTROPHIL ABSOLUTE 4.6 2.0 - 8.0 K/ul [facility] NEUTROPHILS 64.0 42.2 - 75.2 % [facility] HEMATOCRIT 31.3(L) 36.0 - 46.0 % [facility] PLATELETS 220 140 - 440 K/ul [facility] EOSINOPHILS 6.7 0.0 - 7.0 % [facility] EOSINOPHIL ABSOLUTE 0.5 0.0 - 0.7 K/ul [facility] RBC 3.81(L) 4.20 - 5.40 Mil/ul [facility] MCHC 30.7 30.0 - 35.0 g/dL [facility] LYMPHOCYTES 19.6(L) 24.0 - 44.0 % [facility] Blood specimen (specimen) 11/15/2007 5:03 AM CDT 11/15/2007 6:00 AM CDT Angel Rene DO HEMATOLOGY ORDERABLES Mercedes l Result Performing Organization Address [facility] de Phone Number [facility] [address] [place] [address] * MAGNESIUM LEVEL (11/14/2007 4:21 AM CDT) MAGNESIUM 1.9 1.7 - 2.4 mg/dL [facility] Blood specimen (specimen) 11/14/2007 4:21 AM CDT 11/14/2007 4:43 AM CDT Angel Rene DO CHEMISTRY ORDERABLES Final Result Performing Organization Address [facility] Phone Number [facility] [address] [place] [address] * (ABNORMAL) BASIC METABOLIC PANEL (11/14/2007 4:21 AM CDT) CREATININE 0.5(L) 0.7 - 1.2 mg/dL [facility] CALCIUM 8.2(L) 8.4 - 10.5 mg/dL [facility] GLUCOSE 113(H) 70 - 110 mg/dL [facility] CHLORIDE 110 95 - 110 mEq/L [facility] SODIUM 139 136 - 145 mEq/L [facility] ANION GAP 10 9 - 20 mEq/L [facility] BUN 4(L) 7 - 17 mg/dL [facility] CO2 23 22 - 32 mmol/l [facility] OSMOLALITY, CALCULATED 284 275 - 295 mOsm/Kg [facility] POTASSIUM 4.0 3.5 - 5.0 mEq/L [facility] Blood specimen (specimen) 11/14/2007 4:21 AM CDT 11/14/2007 4:43 AM CDT Angel Rene DO CHEMISTRY ORDERABLES Final Result [facility] [address] [place] [address] * (ABNORMAL) CBC WITH DIFFERENTIAL (11/14/2007 4:21 AM CDT) RBC 3.84(L) 4.20 - 5.40 Mil/ul [facility] MCHC 30.7 30.0 - 35.0 g/dL [facility] MONOCYTE ABSOLUTE 0.6 0.1 - 0.6 K/ul [facility] LYMPHOCYTES 31.5 24.0 - 44.0 % [facility] MCV 81.5(L) 84.0 - 103.0 Fl [facility] NEUTROPHIL ABSOLUTE 2.4 2.0 - 8.0 K/ul [facility] MPV 10.3 8.9 - 12.8 Fl [facility] HEMOGLOBIN 9.6(L) 12.0 - 16.0 g/dL [facility] MONOCYTES 11.6(H) 2.0 - 10.0 % [facility] RDW 14.8(H) 11.0 - 14.5 % [facility] EOSINOPHIL ABSOLUTE 0.4 0.0 - 0.7 K/ul [facility] WBC 5.0 4.5 - 11.0 K/ul [facility] NEUTROPHILS 48.7 42.2 - 75.2 % [facility] MCH 25.0(L) 27.0 - 34.0 pg [facility] LYMPHOCYTE ABSOLUTE 1.6 1.2 - 4.0 K/ul [facility] HEMATOCRIT 31.3(L) 36.0 - 46.0 % [facility] PLATELETS 217 140 - 440 K/ul [facility] EOSINOPHILS 8.2(H) 0.0 - 7.0 % [facility] Blood specimen (specimen) 11/14/2007 4:21 AM CDT 11/14/2007 4:43 AM CDT us Angel Rene DO HEMATOLOGY ORDERABLES Mercedes l Result [facility] [place] [address] * CT ABDOMEN PELVIS W CONTRAST (11/13/2007 [...] (small) documented in this encounter Care Teams Service Center Supervisor Relationship Specialty Start Date End Date Non-Staff, Physician NO ADDRESS ON FILE PCP - General 07/02/07 documented as of this encounter
== END 2025-05-23 14:53 | disposition home or self-care (01) ==
PROVIDERS: Family Medicine; Emergency Provider Emergency Medicine; PCP Family Medicine
DX: G51.0 Bell's palsy (principal); Z79.82 Long term (current) use of aspirin; I25.118 Atherosclerotic heart disease of native coronary artery with other forms of angina pectoris; E78.5 Hyperlipidemia, unspecified
CPT/HCPCS: 36416; 70450; 80053; 82962; 85025; 85610; 85730; 93005; 96374; 99285; J2919; J9999

== ENCOUNTER 2025-05-30 12:34 | Oncology outpatient (recurring) (ONCR) | payer MEDICAID, SELFPAY | END 2025-06-02 23:59 | disposition home or self-care (01) | PROVIDERS: PCP Family Medicine; Visit Provider Internal Medicine Medical Oncology | DX: D50.9 Iron deficiency anemia, unspecified (principal); G51.0 Bell's palsy; Z90.3 Acquired absence of stomach [part of]; Z87.891 Personal history of nicotine dependence | CPT/HCPCS: 99213 ==

== ENCOUNTER 2025-05-31 10:45 | Outpatient (CLI) | payer MEDICAID, SELFPAY ==
--- NOTE | 2025-05-31 11:26 | CT_ITS ---
WS: [id number] LDCT LUNG CANCER SCREENING HISTORY: HX OF TOBACCO USE TECHNIQUE: Axial imaging performed from the apices to 1 cm below the costophrenic angles. Coronal and sagittal reformats are submitted with axial MIP series. All CT scans at [facility] use at least one of these dose optimization techniques: automated exposure control; mA and/or kV adjustment per patient size (includes targeted exams where dose is matched to clinical indication); or iterative reconstruction. DLP: 46.29 mGy.cm DIvol: Mean CTDIvol: 0.70 (mGy) COMPARISON: 05/03/2025, 04/01/2024 Diagnostic quality: Satisfactory Lungs: There are a few tiny micronodules. No new or enlarging mass or nodule. Bilateral perifissural nodules. No pneumonia. No endobronchial lesions. Heart: Normal size heart with no pericardial effusion.. Other findings: Mild atherosclerosis aorta. No mediastinal or hilar adenopathy. Normal pulmonary artery. Mild pectus excavatum deformity. Postsurgical changes at the GE junction. Prior cholecystectomy. Stable LEFT adrenal adenoma. CT/CT lung screening [id number] IMPRESSION: LUNG-RADS: 2-Benign Appearance or Behavior FOLLOW UP: 12 Month: Continue annual screening with LDCT OTHER FINDINGS (S MODIFIER): None.
--- NOTE | 2025-05-31 11:47 | XR_ITS ---
WS: [id number] DEXA (DUAL ENERGY X-RAY ABSORPTIOMETRY) Bone mineral density was performed using a cartmi machine. HISTORY: OSTEOPOROSIS COMPARISON: 11/27/2022 Lumbar spine BMD (L1-L4): 0.776 g/cm2 T score: -3.4 Z score: -1.7 Total hip BMD: Left: 0.515 g/cm2. T score: -3.9 Z score: -2.6 Right: 0.531 g/cm2. T score: -3.8 Z score: -2.5 10 year probability of a major osteoporotic fracture is 30.2%. Compared to the prior study from 11/27/2022. Lumbar spine bone mineral density has decreased by 2.3%. Bilateral hips bone mineral density has decreased by 6.8%. XR/XR DEXA axial skeleton* [id number] IMPRESSION: OSTEOPOROSIS based upon the WHO classification for females. Significant decrease of bone mineral density within both the lumbar spine and h ips since the prior study.
--- NOTE | 2025-05-31 11:47 | MM_ITS ---
WS: [id number] BILATERAL 3D TOMOSYNTHESIS DIGITAL SCREENING MAMMOGRAPHY WITH CAD CLINICAL INFORMATION: SCREENING HISTORY: Screening mammogram. No current complaints. COMPARISON: 2023 TECHNIQUE: Bilateral CC and MLO views. FINDINGS: The breasts are composed of heterogeneous fibroglandular density tissue, which can limit the detection of small underlying mass lesions. No suspicious mass, asymmetry, calcifications, or architectural distortion. No evidence of malignancy. MM/MM scr tomosynthesis [id number] IMPRESSION: DENSITY: The breasts are heterogeneously dense, which may obscure small masses. BI-RADS: 1 - Negative FOLLOW UP: 1 Year Follow-up Recommend return to annual screening mammography.
[2025-05-31 13:50] VITALS: PULSE 81; RESP 18; O2SAT 99
== END 2025-05-31 10:46 | disposition home or self-care (01) ==
LOC: RAD 10:47
PROVIDERS: PCP Family Medicine; Visit Provider Family Medicine
DX: Z12.31 Encounter for screening mammogram for malignant neoplasm of breast (principal); R92.333 Mammographic heterogeneous density, bilateral breasts; Z87.891 Personal history of nicotine dependence; Z12.2 Encounter for screening for malignant neoplasm of respiratory organs; I70.0 Atherosclerosis of aorta; Z98.890 Other specified postprocedural states; Z90.49 Acquired absence of other specified parts of digestive tract; D35.02 Benign neoplasm of left adrenal gland; R06.02 Shortness of breath; M81.0 Age-related osteoporosis without current pathological fracture; R91.8 Other nonspecific abnormal finding of lung field; R93.89 Abnormal findings on diagnostic imaging of other specified body structures
CPT/HCPCS: 71271; 77063; 77067; 77080; 94060; 94726; 94729; J7613

== ENCOUNTER → 2025-06-01 10:47 | Outpatient (BNVA) | payer MEDICAID, SELFPAY | PROVIDERS: PCP Family Medicine; Visit Provider Student in an Organized Health Care Education/Training Program | DX: K21.9 Gastro-esophageal reflux disease without esophagitis (principal) | CPT/HCPCS: 99203; 99214 ==

== ENCOUNTER 2025-06-06 03:58 | Emergency (ER) | payer MEDICAID, SELFPAY ==
[2025-06-06 04:00] VITALS: BP 115/71; PULSE 107; RESP 18; TEMP 36.7; O2SAT 99
--- OUTSIDE RECORDS SUMMARY | 2025-06-06 04:05 | XMS_ITS | Encounter Summary ---
Author Organization [employer] [facility] Address [address] [place] [address] Care Team Providers Care Die Grinder Name Role Phone Non-Staff, Physician Primary Care Provider Unava ilable Encounter Details Date Type Department Care Team (Late st Contact Info) Description 08/02/2007 Outpatient [facility] [address] 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
--- OUTSIDE RECORDS SUMMARY | 2025-06-06 04:05 | XMS_ITS | Encounter Summary ---
Author Organization [employer] [facility] Address [address] [place] [address] Care Team Providers Care Cloth Bleaching Range Operator Chief Name Role Phone Non-Staff, Physician Primary Care Provider Unava ilable Encounter Details Date Type Department Care Team (Late st Contact Info) Description 08/07/2007 Outpatient Historical [facility] [address] 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
--- OUTSIDE RECORDS SUMMARY | 2025-06-06 04:05 | XMS_ITS | Encounter Summary ---
Author Organization [employer] [facility] Address [address] [place] [address] Care Team Providers Care Ecological Technical Officer Name Role Phone Non-Staff, Physician Primary Care Provider Unava ilable Encounter Details Date Type Department Care Team (Late st Contact Info) Description 07/18/2007 Outpatient Historical [facility] [address] 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
--- OUTSIDE RECORDS SUMMARY | 2025-06-06 04:05 | XMS_ITS | Encounter Summary ---
Author Organization [facility] Address [address] [place] [address] Care Team Providers Care Cost Control Supervisor Name Role Phone Non-Staff, Physician Primary Care Provider Unava ilable Encounter Details Date Type Department Care Team (Late st Contact Info) Description 07/17/2007 Emergency [facility] [address] 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 CARE SPECIALIST Gender Identity Not on file Sexual Orientation Not on file documented as of this encounter Plan of Treatment Not on file documented as of this encounter Procedures Procedure Name Priority Date/Time Associated Diagnosis Comments URINALYSIS MICROSCOPY ONLY Routine 07/17/2007 5:15 PM HEMODIALYSIS PATIENT CARE SPECIALIST CBC WITH DIFFERENTIAL Routine 07/17/2007 5:15 PM HEMODIALYSIS PATIENT CARE SPECIALIST URINALYSIS W/REFLEX MICROSCOPIC Routine 07/17/2007 5:15 PM HEMODIALYSIS PATIENT CARE SPECIALIST COMPREHENSIVE METABOLIC PANEL Routine 07/17/2007 5:15 PM HEMODIALYSIS PATIENT CARE SPECIALIST HCG QUANTITATIVE, BLOOD Routine 07/17/2007 5:00 PM HEMODIALYSIS PATIENT CARE SPECIALIST documented in this encounter Results * (ABNORMAL) URINALYSIS MICROSCOPY ONLY (07/17/2007 5:15 PM HEMODIALYSIS PATIENT CARE SPECIALIST) WBC URINE 3-5(A) 0 - 2 INTERFACE SYSTEM RBC UA 0-2 0 - 2 INTERFACE SYSTEM HYALINE CAST None Seen 0 - 2 INTERFA CE SYSTEM BACTERIA UA Many(A) None Seen INTERFAC E SYSTEM 07/17/2007 5:15 PM HEMODIALYSIS PATIENT CARE SPECIALIST Renetta Abreu MD URINE ORDERABLES Edited Performing Organization Address [facility] Phone Number INTERFACE SYSTEM Refer to clinic/hospital department * (ABNORMAL) URINALYSIS (07/17/2007 5:15 PM HEMODIALYSIS PATIENT CARE SPECIALIST) COLOR UA Yellow Straw INTERFACE SYSTEM CLARITY [...] Yes(A) No INTERFACE SYSTEM 07/17/2007 5:15 PM HEMODIALYSIS PATIENT CARE SPECIALIST Result [facility] Renetta Abreu MD URINE ORDERABLES Edited Performing Organization Address [facility] Phone Number INTERFACE SYSTEM Refer to clinic/hospital department * (ABNORMAL) COMPREHENSIVE METABOLIC PANEL (07/17/2007 5:15 PM HEMODIALYSIS PATIENT CARE SPECIALIST) GLOBULIN (CALC) 2.6 2.4 - 3.9 g/dL [...] 295 mOsm/Kg INTERFACE SYSTEM 07/17/2007 5:15 PM HEMODIALYSIS PATIENT CARE SPECIALIST Renetta Abreu MD CHEMISTRY ORDERABLES Edited INTERFACE SYSTEM Refer to clinic/hospital department * (ABNORMAL) CBC WITH DIFFERENTIAL (07/17/2007 5:15 PM HEMODIALYSIS PATIENT CARE SPECIALIST) WBC 6.1 4.5 - 11.0 K/ul INTERFACE [...] Automated Diff INTERFACE SYSTEM 07/17/2007 5:15 PM HEMODIALYSIS PATIENT CARE SPECIALIST Renetta Abreu MD HEMATOLOGY ORDERABLES Edited Performing Organization Address City/[facility] Phone Number INTERFACE SYSTEM Refer to clinic/hospital department * BETA HCG QUANTITATIVE, BLOOD (07/17/2007 5:00 PM HEMODIALYSIS PATIENT CARE SPECIALIST) CHORIONIC GONADOTROPIN, TOTAL <2.0 0.0 - 10.0 mlU/ML INTERFACE SYSTEM 07/17/2007 5:00 PM HEMODIALYSIS PATIENT CARE SPECIALIST us Renetta Abreu MD CHEMISTRY ORDERABLES Edited Performing Organization Address [facility] Phone Number INTERFACE SYSTEM Refer to clinic/hospital department documented in this encounter Visit Diagnoses Not on filedocumented in this encounter Care Teams Cost Control Supervisor Relationship Specialty Start Date End Date Non-Staff, Physician NO ADDRESS ON FILE PCP - General 07/02/07 documented as of this encounter
--- OUTSIDE RECORDS SUMMARY | 2025-06-06 04:05 | XMS_ITS | Encounter Summary ---
Author Organization [facility] Address [address] [place] [address] Care Team Providers Care Skid Road Worker Name Role Phone Non-Staff, Physician Primary Care Provider Unava ilable Encounter Details Date Type Department Care Team (Late st Contact Info) Description 08/14/2007 Outpatient [facility] [address] 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
--- OUTSIDE RECORDS SUMMARY | 2025-06-06 04:05 | XMS_ITS | Encounter Summary ---
Author Organization [employer] [facility] Address [address] [place] [address] Care Team Providers Care Copier Field Service Technician Name Role Phone Non-Staff, Physician Primary Care Provider Unava ilable Encounter Details Date Type Department Care Team (Late st Contact Info) Description 07/30/2007 Outpatient [facility] [address] 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
--- OUTSIDE RECORDS SUMMARY | 2025-06-06 04:05 | XMS_ITS | Encounter Summary ---
Author Organization [facility] [facility] Address [address] [place] [address] Care Team Providers Care Driver Wheelchair Name Role Phone Non-Staff, Physician Primary Care Provider Unava ilable Encounter Details Date Type Department Care Team (Late st Contact Info) Description 07/17/2007 Outpatient Historical [facility] [address] 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
--- OUTSIDE RECORDS SUMMARY | 2025-06-06 04:05 | XMS_ITS | Clinical Summary ---
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
--- OUTSIDE RECORDS SUMMARY | 2025-06-06 04:05 | XMS_ITS | Encounter Summary ---
Author Organization [facility] Address [address] [place] [address] Care Team Providers Care Safety And Skill Based Pay Manager Name Role Phone Non-Staff, Physician Primary Care Provider Unava ilable Encounter Details Date Type Department Care Team (Late st Contact Info) Description 07/28/2007 Outpatient Historical [facility] [address] 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
--- OUTSIDE RECORDS SUMMARY | 2025-06-06 04:05 | XMS_ITS | Encounter Summary ---
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
--- OUTSIDE RECORDS SUMMARY | 2025-06-06 04:05 | XMS_ITS | Encounter Summary ---
Author Organization [facility] Address [address] [place] [address] Care Team Providers Care Wind Turbine Engineer Name Role Phone Non-Staff, Physician Primary Care Provider Unava ilable Encounter Details Date Type Department Care Team (Late st Contact Info) Description 08/01/2007 Emergency [facility] Emergency Department [address] [place] [address] Ed, Physician NO ADDRESS ON FILE Maxine Hodges MD [address] [facility] [address] [place] [address] Other and Unspecified Ovarian Cyst; Personal History of Peptic Ulcer Disease; Personal History of Allergy to Analgesic Agent; Personal History of Allergy to Penicillin Social History Tobacco Use Types Packs/Day Years Used Date Smoking Tobacco: Never Assessed Comments Unknown Sex and Gender Information Value Date Recorded Sex Assigned at Not on file Legal Sex Female 6:52 AM MACHINE HEEL SPRAYER Gender Identity Not on file Sexual Orientation Not on file documented as of this encounter Plan of Treatment Not on file documented as of this encounter Procedures Procedure Name Priority Date/Time Associated Diagnosis Comments PT AND APTT Routine 08/01/2007 7:55 PM MACHINE HEEL SPRAYER CBC WITH DIFFERENTIAL Routine 08/01/2007 7:55 PM MACHINE HEEL SPRAYER HCG QUANTITATIVE, BLOOD Routine 08/01/2007 7:55 PM MACHINE HEEL SPRAYER BASIC METABOLIC PANEL Routine 08/01/2007 7:55 PM MACHINE HEEL SPRAYER documented in this encounter Results * BETA HCG QUANTITATIVE, BLOOD (08/01/2007 7:55 PM MACHINE HEEL SPRAYER) CHORIONIC GONADOTROPIN, TOTAL <2.0 0.0 - 10.0 mlU/ML INTERFACE SYSTEM 08/01/2007 7:55 PM MACHINE HEEL SPRAYER us Maxine Hodges MD CHEMISTRY ORDERABLES Edited Performing Organization Address [facility] Phone Number INTERFACE SYSTEM Refer to clinic/hospital department * (ABNORMAL) PT AND APTT (08/01/2007 7:55 PM MACHINE HEEL SPRAYER) Pathologist [facility] PROTIME 12.5(L) 12.8 - 15.8 Secs INTERFACE SYSTEM INR 0.8 INTERFACE SYSTEM PTT 26.4 21.6 - 35.6 Secs INTERFACE SYSTEM 08/01/2007 7:55 PM MACHINE HEEL SPRAYER us Maxine Hodges MD HEMATOLOGY ORDERABLES Edite d Performing Organization Address [facility] Number INTERFACE SYSTEM Refer to clinic/hospital department * BASIC METABOLIC PANEL (08/01/2007 7:55 PM MACHINE HEEL SPRAYER) Pathologist [facility] GLUCOSE 95 70 - 110 [...] 295 mOsm/Kg INTERFACE SYSTEM 08/01/2007 7:55 PM MACHINE HEEL SPRAYER us Maxine Hodges MD CHEMISTRY ORDERABLES Edited Performing Organization Address [facility] Phone Number INTERFACE SYSTEM Refer to clinic/hospital department * (ABNORMAL) CBC WITH DIFFERENTIAL (08/01/2007 7:55 PM MACHINE HEEL SPRAYER) Pathologist [facility] WBC 8.9 4.5 - 11.0 [...] Automated Diff INTERFACE SYSTEM 08/01/2007 7:55 PM MACHINE HEEL SPRAYER Maxine Hodges MD HEMATOLOGY ORDERABLES Edite d INTERFACE SYSTEM Refer to clinic/hospital department documented in this encounter Visit Diagnoses Diagnosis Other and unspecified ovarian cyst Personal history of peptic ulcer disease Personal history of allergy to analgesic agent Personal history of allergy to penicillin documented in this encounter Care Teams Wind Turbine Engineer Relationship Specialty Start Date End Date Non-Staff, Physician NO ADDRESS ON FILE PCP - General 07/02/07 documented as of this encounter
--- OUTSIDE RECORDS SUMMARY | 2025-06-06 04:05 | XMS_ITS | Encounter Summary ---
Author Organization [facility] Address [address] [place] [address] Care Team Providers Care Accounts Payable Bookkeeper Name Role Phone Non-Staff, Physician Primary Care Provider Unava ilable Encounter Details Date Type Department Care Team (Late st Contact Info) Description 08/01/2007 Outpatient Historical [facility] [address] [place] [address] AMBULANCE, [facility] Social History Tobacco Use Types Packs/Day Years Used Date Smoking Tobacco: Never Assessed Comments Unknown Sex and Gender Information Value Date Recorded Sex Assigned at Not on file Legal Sex Female 6:52 AM SEED CLEANER Gender Identity Not on file Sexual Orientation Not on file documented as of this encounter Plan of Treatment Not on file documented as of this encounter Visit Diagnoses Not on filedocumented in this encounter Care Teams Accounts Payable Bookkeeper Relationship Specialty Start Date End Date Non-Staff, Physician NO ADDRESS ON FILE PCP - General 07/02/07 documented as of this encounter
--- OUTSIDE RECORDS SUMMARY | 2025-06-06 04:05 | XMS_ITS | Clinical Summary ---
Author Organization [facility] Address [address] Attn: [place] [address] Care Team Providers Care Industrial Laborer Name Role Phone Non-Staff, Physician Primary Care Provider Unava ilable Social History Tobacco Use Types Packs/Day Years Used Date Smoking Tobacco: Never Assessed Comments Unknown Sex and Gender Information Value Date Recorded Sex Assigned at Not on file Legal Sex Female 12:02 PM SHUTTLECOCK ASSEMBLER Gender Identity Not on file Sexual Orientation Not on file Plan of Treatment Upcoming Encounters Date Type Department Care Team (Late st Contact Info) Description 09/13/2025 12:00 PM SHUTTLECOCK ASSEMBLER Office Visit [facility] [place] [facility] [place] [address] [place] [address] Yevgeniy Allen MD [address] [place] [address] Health Maintenance Due Date Last [...] age to complete this topic Insurance MEDICAID [place] Care Teams Industrial Laborer Relationship Specialty Start Date End Date Non-Staff, Physician NO ADDRESS ON FILE PCP - General 07/02/07
--- OUTSIDE RECORDS SUMMARY | 2025-06-06 04:05 | XMS_ITS | Encounter Summary ---
Author Organization [employer] [facility] Address [address] [place] [address] Care Team Providers Care Public Information Director Name Role Phone Non-Staff, Physician Primary Care Provider Unava ilable Encounter Details Date Type Department Care Team (Late st Contact Info) Description 07/01/2007 Outpatient Historical HIS IN BED Sj Ed, Physician NO ADDRESS ON FILE Marissa Hardin MD NO ADDRESS ON FILE Chon Mobley MD [address] [place] [address] Namita Grant MD [address] [place] [address] Luis Alfredo Slade MD [address] [place] [address] Amado Hope MD NO ADDRESS ON FILE Mal Baer, DO [address] [place] [address] Adjustment Disorder with Depressed Mood; [...] on file Legal Sex Female 6:52 AM LOGGING WORKER Gender Identity Not on file Sexual Orientation Not on file documented as of this encounter Plan of Treatment Not on file documented as of this encounter Procedures Procedure Name Priority Date/Time Associated Diagnosis Comments CBC WITH DIFFERENTIAL Routine 07/09/2007 9:30 AM LOGGING WORKER DIFFERENTIAL, MANUAL Routine 07/07/2007 2:30 AM LOGGING WORKER CBC WITH DIFFERENTIAL Routine 07/07/2007 2:30 AM LOGGING WORKER BASIC METABOLIC PANEL Routine 07/07/2007 2:30 AM LOGGING WORKER URINALYSIS MICROSCOPY ONLY Routine 07/06/2007 1:09 PM LOGGING WORKER URINALYSIS W/REFLEX MICROSCOPIC Routine 07/06/2007 1:09 PM LOGGING WORKER ENDOMYSIAL IGA AUTOANTIBODY Routine 07/06/2007 11:38 AM LOGGING WORKER HEMOGLOBIN AND HEMATOCRIT Routine 07/05/2007 3:28 AM LOGGING WORKER CBC WITH DIFFERENTIAL Routine 07/04/2007 2:53 AM LOGGING WORKER BASIC METABOLIC PANEL Routine 07/04/2007 2:53 AM LOGGING WORKER HEMOGLOBIN AND HEMATOCRIT Routine 07/03/2007 4:05 AM LOGGING WORKER HEMOGLOBIN AND HEMATOCRIT Routine 07/02/2007 2:09 PM LOGGING WORKER CARDIAC ENZYMES Routine 07/02/2007 6:27 AM LOGGING WORKER CBC WITH DIFFERENTIAL Routine 07/02/2007 4:23 AM LOGGING WORKER COMPREHENSIVE METABOLIC PANEL Routine 07/02/2007 4:23 AM LOGGING WORKER FOLATE, SERUM Routine 07/02/2007 12:04 AM LOGGING WORKER IRON, TIBC, AND PERCENT SATURATION Routine 07/02/2007 12:04 AM LOGGING WORKER CARDIAC ENZYMES Routine 07/02/2007 12:04 AM LOGGING WORKER FERRITIN Routine 07/02/2007 12:04 AM LOGGING WORKER VITAMIN B12 LEVEL Routine 07/02/2007 12: 04 AM LOGGING WORKER XR CHEST PA OR AP 1 VW Routine 7 7:27 PM LOGGING WORKER CARDIAC ENZYMES Routine 07/01/2007 6:11 PM LOGGING WORKER CBC WITH DIFFERENTIAL Routine 07/01/2007 6:11 PM LOGGING WORKER PTT Routine 07/01/2007 6:11 PM LOGGING WORKER PROTIME-INR Routine 07/01/2007 6:11 PM LOGGING WORKER HCG QUANTITATIVE, BLOOD Routine 07/01/2007 6:11 PM LOGGING WORKER TSH Routine 07/01/2007 6:11 PM LOGGING WORKER BASIC METABOLIC PANEL Routine 07/01/2007 6:11 PM LOGGING WORKER documented in this encounter Results * (ABNORMAL) CBC WITH DIFFERENTIAL (07/09/2007 9:30 AM LOGGING WORKER) WBC 6.3 4.5 - 11.0 K/ul INTERFACE [...] Automated Diff INTERFACE SYSTEM 07/09/2007 9:30 AM LOGGING WORKER Narrative INTERFACE SYSTEM - 07/09/2007 9:41 AM LOGGING WORKER Ordered by an unspecified provider. Historical Provider HEMATOLOGY ORDERABLES Edited INTERFACE SYSTEM Refer to clinic/hospital department * (ABNORMAL) DIFFERENTIAL, MANUAL (07/07/2007 2:30 AM LOGGING WORKER) NEUTROPHILS, SEG 60 36 - 66 % [...] Seen INTERFA CE SYSTEM 07/07/2007 2:30 AM LOGGING WORKER Chon Mobley MD HEMATOLOGY ORDERABLES COM Ed ited INTERFACE SYSTEM Refer to clinic/hospital department * (ABNORMAL) BASIC METABOLIC PANEL (07/07/2007 2:30 AM LOGGING WORKER) GLUCOSE 69(L) 70 - 110 mg/dL INTERFACE [...] 295 mOsm/Kg INTERFACE SYSTEM 07/07/2007 2:30 AM LOGGING WORKER Chon Mobley MD CHEMISTRY ORDERABLES Edited Performing Organization Address [facility] de Phone Number INTERFACE SYSTEM Refer to clinic/hospital department * (ABNORMAL) CBC WITH DIFFERENTIAL (07/07/2007 2:30 AM LOGGING WORKER) Pathologist [facility] WBC 6.0 4.5 - 11.0 K/ul INTERFACE [...] 12.8 Fl INTERFACE SYSTEM 07/07/2007 2:30 AM LOGGING WORKER Chon Mobley MD HEMATOLOGY ORDERABLES Edited Performing Organization Address [facility] de Phone Number INTERFACE SYSTEM Refer to clinic/hospital department * (ABNORMAL) URINALYSIS MICROSCOPY ONLY (07/06/2007 1:09 PM LOGGING WORKER) WBC URINE 0-2 0 - 2 INTERFACE SYSTEM RBC UA 6-10(A) 0 - 2 INTERFACE SYSTEM HYALINE CAST None Seen 0 - 2 INTERFA CE SYSTEM BACTERIA UA Many(A) None Seen INTERFAC E SYSTEM 07/06/2007 1:09 PM LOGGING WORKER us Chon Mobley MD URINE ORDERABLES Edited Performing Organization Address [facility] Phone Number INTERFACE SYSTEM Refer to clinic/hospital department * (ABNORMAL) URINALYSIS (07/06/2007 1:09 PM LOGGING WORKER) COLOR UA Yellow Straw INTERFACE SYSTEM CLARITY [...] Yes(A) No INTERFACE SYSTEM 07/06/2007 1:09 PM LOGGING WORKER us Chon Mobley MD URINE ORDERABLES Edited Performing Organization Address [facility] Phone Number INTERFACE SYSTEM Refer to clinic/hospital department * ENDOMYSIAL IGA AUTOANTIBODY (07/06/2007 11:38 AM LOGGING WORKER) ENDOMYSIAL AB IGA See Sep Report INTERFACE SYSTEM 07/06/2007 11:3 8 AM LOGGING WORKER us Chon Mobley MD CHEMISTRY ORDERABLES Edited Performing Organization Address [facility] Phone Number INTERFACE SYSTEM Refer to clinic/hospital department * (ABNORMAL) HEMOGLOBIN AND HEMATOCRIT (07/05/2007 3:28 AM LOGGING WORKER) HEMOGLOBIN 9.8(L) 12.0 - 16.0 g/dL INTERFACE SYSTEM HEMATOCRIT 33.1(L) 36.0 - 46.0 % INTERFACE SYSTEM 07/05/2007 3:28 AM LOGGING WORKER Chon Mobley MD HEMATOLOGY ORDERABLES Edited Performing Organization Address [facility] Phone Number INTERFACE SYSTEM Refer to clinic/hospital department * (ABNORMAL) BASIC METABOLIC PANEL (07/04/2007 2:53 AM LOGGING WORKER) GLUCOSE 91 70 - 110 mg/dL INTERFACE [...] 295 mOsm/Kg INTERFACE SYSTEM 07/04/2007 2:53 AM LOGGING WORKER Chon Mobley MD CHEMISTRY ORDERABLES Edited Performing Organization Address [facility] Phone Number INTERFACE SYSTEM Refer to clinic/hospital department * (ABNORMAL) CBC WITH DIFFERENTIAL (07/04/2007 2:53 AM LOGGING WORKER) WBC 6.6 4.5 - 11.0 K/ul INTERFACE [...] Automated Diff INTERFACE SYSTEM 07/04/2007 2:53 AM LOGGING WORKER Chon Mobley MD HEMATOLOGY ORDERABLES Edited Performing Organization Address [facility] de Phone Number INTERFACE SYSTEM Refer to clinic/hospital department * (ABNORMAL) HEMOGLOBIN AND HEMATOCRIT (07/03/2007 4:05 AM LOGGING WORKER) HEMOGLOBIN 9.8(L) 12.0 - 16.0 g/dL INTERFACE SYSTEM HEMATOCRIT 32.0(L) 36.0 - 46.0 % INTERFACE SYSTEM 07/03/2007 4:05 AM LOGGING WORKER Chon Mobley MD HEMATOLOGY ORDERABLES Edited Performing Organization Address [facility] de Phone Number INTERFACE SYSTEM Refer to clinic/hospital department * (ABNORMAL) HEMOGLOBIN AND HEMATOCRIT (07/02/2007 2:09 PM LOGGING WORKER) HEMOGLOBIN 9.8(L) 12.0 - 16.0 g/dL INTERFACE SYSTEM HEMATOCRIT 31.7(L) 36.0 - 46.0 % INTERFACE SYSTEM 07/02/2007 2:09 PM LOGGING WORKER Chon Mobley MD HEMATOLOGY ORDERABLES Edited Performing Organization Address [facility] Co de Phone Number INTERFACE SYSTEM Refer to clinic/hospital department * CARDIAC ENZYMES (07/02/2007 6:27 AM LOGGING WORKER) TROPONIN I <0.1 0.0 - 1.3 ng/mL INTERFACE SYSTEM Comment: As of 06 the Troponin Reference Range has changed from 0.0-1.5 ng/ml to 0.0- 1.3 ng/ml due to a change in testing methodology. CKMB <0.2 0.0 - 5.0 ng/mL INTERFACE SYSTEM 07/02/2007 6:27 AM LOGGING WORKER us Marissa Hardin MD CHEMISTRY ORDERABLES Edited Performing Organization Address [facility] de Phone Number INTERFACE SYSTEM Refer to clinic/hospital department * (ABNORMAL) COMPREHENSIVE METABOLIC PANEL (07/02/2007 4:23 AM LOGGING WORKER) GLOBULIN (CALC) 1.7(L) 2.4 - 3.9 g/dL [...] 295 mOsm/Kg INTERFACE SYSTEM 07/02/2007 4:23 AM LOGGING WORKER us Chon Mobley MD CHEMISTRY ORDERABLES Edited INTERFACE SYSTEM Refer to clinic/hospital department * (ABNORMAL) CBC WITH DIFFERENTIAL (07/02/2007 4:23 AM LOGGING WORKER) WBC 13.9(H) 4.5 - 11.0 K/ul INTERFACE [...] Automated Diff INTERFACE SYSTEM 07/02/2007 4:23 AM LOGGING WORKER us Chon Mobley MD HEMATOLOGY ORDERABLES Edited INTERFACE SYSTEM Refer to clinic/hospital department * CARDIAC ENZYMES (07/02/2007 12:04 AM LOGGING WORKER) TROPONIN I <0.1 0.0 - 1.3 ng/mL INTERFACE SYSTEM Comment: As of 06 the Troponin Reference Range has changed from 0.0-1.5 ng/ml to 0.0- 1.3 ng/ml due to a change in testing methodology. CKMB <0.2 0.0 - 5.0 ng/mL INTERFACE SYSTEM 07/02/2007 12:0 4 AM LOGGING WORKER us Marissa Hardin MD CHEMISTRY ORDERABLES Edited Performing Organization Address [facility] de Phone Number INTERFACE SYSTEM Refer to clinic/hospital department * (ABNORMAL) VITAMIN B12 (07/02/2007 12:04 AM LOGGING WORKER) VITAMIN B12 164(L) 211 - 911 pg/dL INTERFACE SYSTEM 07/02/2007 12:0 4 AM LOGGING WORKER us Chon Mobley MD CHEMISTRY ORDERABLES Edited Performing Organization Address [facility] de Phone Number INTERFACE SYSTEM Refer to clinic/hospital department * FOLATE, SERUM (07/02/2007 12:04 AM LOGGING WORKER) FOLATE, SERUM 12.54 >=5.38 ng/dL INTERFACE SYSTEM 07/02/2007 12:0 4 AM LOGGING WORKER us Chon Mobley MD CHEMISTRY ORDERABLES Edited Performing Organization Address [facility] de Phone Number INTERFACE SYSTEM Refer to clinic/hospital department * (ABNORMAL) FERRITIN (07/02/2007 12:04 AM LOGGING WORKER) FERRITIN 3.0(L) 10.0 - 291.0 ng/mL INTERFACE SYSTEM 07/02/2007 12:0 4 AM LOGGING WORKER Result Luciana Mobley MD CHEMISTRY ORDERABLES Edited Performing Organization Address [facility] de Phone Number INTERFACE SYSTEM Refer to clinic/hospital department * IRON AND TIBC (07/02/2007 12:04 AM LOGGING WORKER) TIBC 365 250 - 450 ug/dL INTERFACE SYSTEM IRON % SATURATION 45 15 - 50 % INTERFACE SYSTEM IRON 164 50 - 170 ug/dL INTERFACE SYSTEM Comment: As of Sep 11, 2005 the reference ranges have changed due to new instrumentation. 07/02/2007 12:0 4 AM LOGGING WORKER Chon Mobley MD CHEMISTRY ORDERABLES Edited INTERFACE SYSTEM Refer to clinic/hospital department * XR CHEST PA OR AP (07/01/2007 7:27 PM LOGGING WORKER) Anatomical Region Laterality Modality Chest Other 07/01/2007 7:27 PM LOGGING WORKER Narrative 07/01/2007 7:27 PM LOGGING WORKER Exam: Chest - PortableDate/Time of Exam: Jul [...] BETA HCG QUANTITATIVE, BLOOD (07/01/2007 6:11 PM LOGGING WORKER) CHORIONIC GONADOTROPIN, TOTAL <2.0 0.0 - 10.0 mlU/ML INTERFACE SYSTEM Comment: Total HCG levels between 10 mIU/mL and 25 mIU/mL may be indicative of early but need to be correlated with other clinical findings. HCG ranges during normal , as reported by the laminating machine tender, are summarized as follows: Gestational Age Expected hCG Values (mIU/ml) 0.2-1 Weeks 5 - 50 1-2 Weeks 50 - 500 2-3 Weeks 100 - 5,000 3-4 Weeks 1,000 - 50,000 5-6 Weeks 10,000 - 100,000 6-8 Weeks 15,000 - 200,000 2-3 Months 10,000 - 100,000 07/01/2007 6:11 PM LOGGING WORKER Chon Mobley MD CHEMISTRY ORDERABLES Edited Performing Organization Address [facility] de Phone Number INTERFACE SYSTEM Refer to clinic/hospital department * TSH (07/01/2007 6:11 PM LOGGING WORKER) TSH 1.770 0.350 - 5.500 uIU/ml INTERFACE SYSTEM 07/01/2007 6:11 PM LOGGING WORKER Chon Mobley MD CHEMISTRY ORDERABLES Edited Performing Organization Address [facility] Phone Number INTERFACE SYSTEM Refer to clinic/hospital department * (ABNORMAL) CBC WITH DIFFERENTIAL (07/01/2007 6:11 PM LOGGING WORKER) WBC 6.0 4.5 - 11.0 K/ul INTERFACE [...] Automated Diff INTERFACE SYSTEM 07/01/2007 6:11 PM LOGGING WORKER us Marissa Hardin MD HEMATOLOGY ORDERABLES Edited Performing Organization Address City/State/[facility] Co de Phone Number INTERFACE SYSTEM Refer to clinic/hospital department * PTT (07/01/2007 6:11 PM LOGGING WORKER) PTT 23.1 21.6 - 35.6 Secs INTERFACE SYSTEM Comment: Therapeutic Range: Hi-level PE/DVT heparin protocol 80.1 -95.0 sec Lo-level PE/DVT heparin protocol 67.1 - 80.0 sec Cardiac Heparin Protocol 67.1 - 85.0 sec Neuro Heparin Protocol 67.1 - 80.0 sec As of 07/09/2006 note change in APTT Normal Range. 07/01/2007 6:11 PM LOGGING WORKER us Marissa Hardin MD HEMATOLOGY ORDERABLES Edited INTERFACE SYSTEM Refer to clinic/hospital department * PROTIME-INR (07/01/2007 6:11 PM LOGGING WORKER) PROTIME 14.0 13.0 - 15.7 Secs INTERFACE SYSTEM Comment: As of 06 note change in normal range. INR 1.0 INTERFACE SYSTEM Comment: Expected Values for INR: DVT/PE Goal INR 2.5; range 2.0 - 3.0 Valve Replacement Tissue Goal INR 2.5; range 2.0 - 3.0 Mechanical Goal INR 3.0; range 2.5 - 3.5 POST-[place] Goal INR 2.5; range 2.0 - 3.0 or Goal 3.0; range 2.5 - 3.5 Atrial Fibrillation Goal INR 2.5; range 2.0 - 3.0 Ischemic Stroke Goal INR 2.5; range 2.0 - 3.0 For additional information see Guidelines for Anticoagulation available from the pharmacy Aleksandra Otero, Pharm D. 07/01/2007 6:11 PM LOGGING WORKER us Marissa Hardin MD HEMATOLOGY ORDERABLES Edited Performing Organization Address [facility] Phone Number INTERFACE SYSTEM Refer to clinic/hospital department * (ABNORMAL) BASIC METABOLIC PANEL (07/01/2007 6:11 PM LOGGING WORKER) GLUCOSE 98 70 - 110 mg/dL INTERFACE [...] 295 mOsm/Kg INTERFACE SYSTEM 07/01/2007 6:11 PM LOGGING WORKER us Marissa Hardin MD CHEMISTRY ORDERABLES Edited Performing Organization Address [facility]/ZIP Co de Phone Number INTERFACE SYSTEM Refer to clinic/hospital department * CARDIAC ENZYMES (07/01/2007 6:11 PM LOGGING WORKER) TROPONIN I <0.1 0.0 - 1.3 ng/mL INTERFACE SYSTEM Comment: As of 06 the Troponin Reference Range has changed from 0.0-1.5 ng/ml to 0.0- 1.3 ng/ml due to a change in testing methodology. CKMB <0.2 0.0 - 5.0 ng/mL INTERFACE SYSTEM 07/01/2007 6:11 PM LOGGING WORKER us Marissa Hardin MD CHEMISTRY ORDERABLES Edited Performing Organization Address City/[facility] Co de Phone Number INTERFACE SYSTEM Refer [...] occurrence documented in this encounter Care Teams Public Information Director Relationship Specialty Start Date End Date Non-Staff, Physician NO ADDRESS ON FILE PCP - General 07/02/07 documented as of this encounter
--- OUTSIDE RECORDS SUMMARY | 2025-06-06 04:05 | XMS_ITS | Encounter Summary ---
Author Organization [employer] [facility] Address [address] [place] [address] Care Team Providers Care Chicken Handler Name Role Phone Non-Staff, Physician Primary Care Provider Unava ilable Encounter Details Date Type Department Care Team (Late st Contact Info) Description 07/06/2007 Outpatient Historical [facility] [address] [place] [address] AMBULANCE, [facility] Social History Tobacco Use Types Packs/Day Years Used Date Smoking Tobacco: Never Assessed Comments Unknown Sex and Gender Information Value Date Recorded Sex Assigned at Not on file Legal Sex Female 6:52 AM PHARMACY CLERK Gender Identity Not on file Sexual Orientation Not on file documented as of this encounter Plan of Treatment Not on file documented as of this encounter Visit Diagnoses Not on filedocumented in this encounter Care Teams Chicken Handler Relationship Specialty Start Date End Date Non-Staff, Physician NO ADDRESS ON FILE PCP - General 07/02/07 documented as of this encounter
--- OUTSIDE RECORDS SUMMARY | 2025-06-06 04:05 | XMS_ITS | Encounter Summary ---
Author Organization [employer] [facility] Address [address] [place] [address] Care Team Providers Care Miter Grinder Operator Name Role Phone Non-Staff, Physician Primary Care Provider Unava ilable Encounter Details Date Type Department Care Team (Late st Contact Info) Description 07/28/2007 Outpatient Historical [facility] [address] [place] [address] AMBULANCE, [facility] Social History Tobacco Use Types Packs/Day Years Used Date Smoking Tobacco: Never Assessed Comments Unknown Sex and Gender Information Value Date Recorded Sex Assigned at Not on file Legal Sex Female 6:52 AM RESIDENCE DIRECTOR Gender Identity Not on file Sexual Orientation Not on file documented as of this encounter Plan of Treatment Not on file documented as of this encounter Visit Diagnoses Not on filedocumented in this encounter Care Teams Miter Grinder Operator Relationship Specialty Start Date End Date Non-Staff, Physician NO ADDRESS ON FILE PCP - General 07/02/07 documented as of this encounter
--- OUTSIDE RECORDS SUMMARY | 2025-06-06 04:05 | XMS_ITS | Encounter Summary ---
Author Organization [facility] Address [address] [place] [address] Care Team Providers Care Cutting And Printing Machine Operator Name Role Phone Non-Staff, Physician Primary Care Provider Unava ilable Encounter Details Date Type Department Care Team (Late st Contact Info) Description 07/18/2007 Emergency [facility] Emergency Department [address] [place] [address] Ed, Physician NO ADDRESS ON FILE Justen Lipscomb MD NO ADDRESS ON FILE Social History Tobacco Use Types Packs/Day Years Used Date Smoking Tobacco: Never Assessed Comments Unknown Sex and Gender Information Value Date Recorded Sex Assigned at Not on file Legal Sex Female 6:52 AM ROLLWAY MAN Gender Identity Not on file Sexual Orientation Not on file documented as of this encounter Plan of Treatment Not on file documented as of this encounter Procedures Procedure Name Priority Date/Time Associated Diagnosis Comments CBC WITH DIFFERENTIAL Routine 07/18/2007 3:32 PM ROLLWAY MAN COMPREHENSIVE METABOLIC PANEL Routine 07/18/2007 3:32 PM ROLLWAY MAN documented in this encounter Results * (ABNORMAL) COMPREHENSIVE METABOLIC PANEL (07/18/2007 3:32 PM ROLLWAY MAN) GLUCOSE 94 70 - 110 mg/dL [...] 295 mOsm/Kg INTERFACE SYSTEM 07/18/2007 3:32 PM ROLLWAY MAN us Physician Sj Ed CHEMISTRY ORDERABLES Edited INTERFACE SYSTEM Refer to clinic/hospital department * (ABNORMAL) CBC WITH DIFFERENTIAL (07/18/2007 3:32 PM ROLLWAY MAN) WBC 6.5 4.5 - 11.0 K/ul [...] Automated Diff INTERFACE SYSTEM 07/18/2007 3:32 PM ROLLWAY MAN us Physician Sj Ed HEMATOLOGY ORDERABLES Edited INTERFACE SYSTEM Refer to clinic/hospital department documented in this encounter Visit Diagnoses Not on filedocumented in this encounter Care Teams Cutting And Printing Machine Operator Relationship Specialty Start Date End Date Non-Staff, Physician NO ADDRESS ON FILE PCP - General 07/02/07 documented as of this encounter
--- OUTSIDE RECORDS SUMMARY | 2025-06-06 04:05 | XMS_ITS | Encounter Summary ---
Author Organization [facility] Address [address] [place] [address] Care Team Providers Care Greenhouse Transplanter Name Role Phone Non-Staff, Physician Primary Care Provider Unava ilable Encounter Details Date Type Department Care Team (Late st Contact Info) Description 07/28/2007 Emergency [facility] Emergency Department [address] 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 Gender Identity Not on file Sexual Orientation Not on file documented as of this encounter Plan of Treatment Not on file documented as of this encounter Procedures Procedure Name Priority Date/Time Associated Diagnosis Comments POC GLUCOSE Routine 07/28/2007 3:58 PM MANUFACTURING TECHNICIAN documented in this encounter Results * (ABNORMAL) POC GLUCOSE (07/28/2007 3:58 PM MANUFACTURING TECHNICIAN) GLUCOSE POC 101(H) 60 - 100 mg/dL INTERFACE SYSTEM 07/28/2007 3:58 PM MANUFACTURING TECHNICIAN Farshad Salinas MD POINT OF CARE TESTING [...] agent documented in this encounter Care Teams Greenhouse Transplanter Relationship Specialty Start Date End Date Non-Staff, Physician NO ADDRESS ON FILE PCP - General 07/02/07 documented as of this encounter
--- OUTSIDE RECORDS SUMMARY | 2025-06-06 04:05 | XMS_ITS | Encounter Summary ---
Author Organization [facility] Address [address] [place] [address] Care Team Providers Care Community Arts Officer Name Role Phone Non-Staff, Physician Primary Care Provider Unava ilable Encounter Details Date Type Department Care Team (Late st Contact Info) Description 07/30/2007 Emergency [facility] Emergency Department [address] 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
--- OUTSIDE RECORDS SUMMARY | 2025-06-06 04:05 | XMS_ITS | Encounter Summary ---
Author Organization [facility] Address [address] [place] [address] Care Team Providers Care Diaper Folder Name Role Phone Non-Staff, Physician Primary Care Provider Unava ilable Encounter Details Date Type Department Care Team (Late st Contact Info) Description 08/15/2007 Emergency [facility] Emergency Department [address] [place] [address] Ed, Physician NO ADDRESS ON FILE Prabhjot Bartlett PA [address] [place] [address] Lumbago; Personal History of Injury, Presenting Hazards to Health; Personal History of Allergy to Penicillin; Personal History of Allergy to Other Specified Medicinal Agents Social History Tobacco Use Types Packs/Day Years Used Date Smoking Tobacco: Never Assessed Comments Unknown Sex and Gender Information Value Date Recorded Sex Assigned at Not on file 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
--- OUTSIDE RECORDS SUMMARY | 2025-06-06 04:05 | XMS_ITS | Encounter Summary ---
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 Gender Identity Not on file Sexual Orientation Not on file documented as of this encounter Plan of Treatment Not on file documented as of this encounter Procedures Procedure Name Priority Date/Time Associated Diagnosis Comments URINALYSIS W/REFLEX MICROSCOPIC Routine 08/14/2007 6:35 PM COMMERCIAL PROPERTY MANAGER CBC WITH DIFFERENTIAL Routine 08/14/2007 4:16 PM COMMERCIAL PROPERTY MANAGER documented in this encounter Results * URINALYSIS (08/14/2007 6:35 PM COMMERCIAL PROPERTY MANAGER) COLOR UA Straw Straw INTERFACE SYSTEM CLARITY [...] No No INTERFACE SYSTEM 08/14/2007 6:35 PM COMMERCIAL PROPERTY MANAGER Joe Perez MD URINE ORDERABLES Edited INTERFACE SYSTEM Refer to clinic/hospital department * (ABNORMAL) CBC WITH DIFFERENTIAL (08/14/2007 4:16 PM COMMERCIAL PROPERTY MANAGER) WBC 5.4 4.5 - 11.0 K/ul INTERFACE [...] Automated Diff INTERFACE SYSTEM 08/14/2007 4:16 PM COMMERCIAL PROPERTY MANAGER Joe Perez MD HEMATOLOGY ORDERABLES Edit ed INTERFACE SYSTEM Refer to clinic/hospital department documented in this encounter Visit Diagnoses Diagnosis Lumbago Chronic airway obstruction, not elsewhere classified (CMS/[facility]) Chronic airway obstruction, not elsewhere classified Encounter for long-term (current) use of other medications Personal history of allergy to penicillin Personal history of allergy to analgesic agent documented in this encounter Care Teams Vice President Pharmacy Relationship Specialty Start Date End Date Non-Staff, Physician NO ADDRESS ON FILE PCP - General 07/02/07 documented as of this encounter
--- OUTSIDE RECORDS SUMMARY | 2025-06-06 04:08 | XMS_ITS | Encounter Summary ---
Author Organization [facility] Address [address] [place] [address] Care Team Providers Care Marketing Director Assisted Living Name Role Phone Non-Staff, Physician Primary Care Provider Unava ilable Encounter Details Date Type Department Care Team (Late st Contact Info) Description 07/27/2007 Emergency [facility] Emergency Department [address] 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
--- OUTSIDE RECORDS SUMMARY | 2025-06-06 04:08 | XMS_ITS | Encounter Summary ---
Author Organization [employer] [facility] Address [address] [place] [address] Care Team Providers Care Supervisor Grower Name Role Phone Non-Staff, Physician Primary Care Provider Unava ilable Encounter Details Date Type Department Care Team (Late st Contact Info) Description 08/16/2007 Outpatient Historical [facility] [address] [place] [address] AMBULANCE, 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
--- OUTSIDE RECORDS SUMMARY | 2025-06-06 04:08 | XMS_ITS | Encounter Summary ---
Author Organization [employer] [facility] Address [address] [place] [address] Care Team Providers Care Sales Data Analyst Name Role Phone Non-Staff, Physician Primary Care Provider Unava ilable Encounter Details Date Type Department Care Team (Late st Contact Info) Description 11/13/2007 Outpatient Historical [facility] [address] [place] [address] AMBULANCE, [facility], [facility] Social History Tobacco Use Types Packs/Day Years Used Date Smoking Tobacco: Never Assessed Comments Unknown Sex and Gender Information Value Date Recorded Sex Assigned at Not on file Legal 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
--- OUTSIDE RECORDS SUMMARY | 2025-06-06 04:08 | XMS_ITS | Encounter Summary ---
Author Organization [facility] Address [address] [place] [address] Care Team Providers Care Lens Examiner Name Role Phone Non-Staff, Physician Primary Care Provider Unava ilable Encounter Details Date Type Department Care Team (Late st Contact Info) Description 07/25/2007 Emergency [facility] Emergency Department [address] [place] [address] Ed, Physician NO ADDRESS ON FILE Marissa Hardin MD NO ADDRESS ON FILE Social History Tobacco Use Types Packs/Day Years Used Date Smoking Tobacco: Never Assessed Comments Unknown Sex and Gender Information Value Date Recorded Sex Assigned at Not on file Legal Sex Female 6:52 AM RN CLINICAL DOCUMENTATION Gender Identity Not on file Sexual Orientation Not on file documented as of this encounter Plan of Treatment Not on file documented as of this encounter Visit Diagnoses Not on filedocumented in this encounter Care Teams Lens Examiner Relationship Specialty Start Date End Date Non-Staff, Physician NO ADDRESS ON FILE PCP - General 07/02/07 documented as of this encounter
--- OUTSIDE RECORDS SUMMARY | 2025-06-06 04:08 | XMS_ITS | Encounter Summary ---
Author Organization [employer] [facility] Address [address] [place] [address] Care Team Providers Care Sanitation Engineer Name Role Phone Non-Staff, Physician Primary Care Provider Unava ilable Encounter Details Date Type Department Care Team (Late st Contact Info) Description 07/27/2007 Outpatient Historical [facility] [address] 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
--- OUTSIDE RECORDS SUMMARY | 2025-06-06 04:08 | XMS_ITS | Encounter Summary ---
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 Gender Identity Not on file Sexual [...] CDT) CREATININE 0.5(L) 0.7 - 1.2 mg/dL [facility] CALCIUM 9.0 8.4 - 10.5 mg/dL [facility] GLUCOSE 109 70 - 110 mg/dL [facility] CHLORIDE 105 95 - 110 mEq/L [facility] ANION GAP 10 9 - 20 mEq/L [facility] SODIUM 138 136 - 145 mEq/L [facility] BUN 2(L) 7 - 17 mg/dL [facility] CO2 27 22 - 32 mmol/l [facility] POTASSIUM 4.0 3.5 - 5.0 mEq/L [facility] OSMOLALITY, CALCULATED 281 275 - 295 mOsm/Kg [facility] Blood specimen (specimen) 11/17/2007 3:26 AM CDT 11/17/2007 3:54 AM CDT us Angel Rene DO CHEMISTRY ORDERABLES Final Result [facility] [address] [place] [address] * (ABNORMAL) CBC WITH DIFFERENTIAL (11/17/2007 3:26 AM CDT) HEMATOCRIT 29.9(L) 36.0 - 46.0 % [facility] EOSINOPHILS 12.3(H) 0.0 - 7.0 % [facility] PLATELETS 182 140 - 440 K/ul [facility] EOSINOPHIL ABSOLUTE 0.5 0.0 - 0.7 K/ul [facility] RBC 3.68(L) 4.20 - 5.40 Mil/ul [facility] LYMPHOCYTES 25.9 24.0 - 44.0 % [facility] MCHC 31.1 30.0 - 35.0 g/dL [facility] LYMPHOCYTE ABSOLUTE 1.0(L) 1.2 - 4.0 K/ul [facility] MCV 81.3(L) 84.0 - 103.0 Fl [facility] MPV 10.3 8.9 - 12.8 Fl [facility] BASOPHILS ABSOLUTE 0.0 0.0 - 0.2 K/ul [facility] BASOPHILS 0.3 0.0 - 1.0 % [facility] HEMOGLOBIN 9.3(L) 12.0 - 16.0 g/dL [facility] RDW 14.7(H) 11.0 - 14.5 % [facility] MONOCYTE ABSOLUTE 0.5 0.1 - 0.6 K/ul [facility] MONOCYTES 14.1(H) 2.0 - 10.0 % [facility] WBC 3.8(L) 4.5 - 11.0 K/ul [facility] MCH 25.3(L) 27.0 - 34.0 pg [facility] NEUTROPHIL ABSOLUTE 1.8(L) 2.0 - 8.0 K/ul [facility] NEUTROPHILS 47.4 42.2 - 75.2 % [facility] Blood specimen (specimen) 11/17/2007 3:26 AM CDT 11/17/2007 3:54 AM CDT us Angel Rene DO HEMATOLOGY ORDERABLES Mercedes l Result Performing Organization Address City/State/[facility] Co de Phone Number [facility] [address] [place] [address] * XR UPR GI AND SMALL BOWEL [...] By: Christal Acuña M.D. Date Signed: 11/19/07 [facility] Procedure Note Christal Acuña - 11/19/2007 Upper [...] By: Christal Acuña M.D. Date Signed: 11/19/07 [facility] us Angel Rene DO DIAGNOSTIC IMAGING ORDERAB [...] CDT) BUN <2(L) 7 - 17 mg/dL [facility] CO2 31 22 - 32 mmol/l [facility] POTASSIUM 4.4 3.5 - 5.0 mEq/L [facility] OSMOLALITY, CALCULATED <287 275 - 295 mOsm/Kg [facility] CREATININE 0.6(L) 0.7 - 1.2 mg/dL [facility] CALCIUM 8.9 8.4 - 10.5 mg/dL [facility] GLUCOSE 111(H) 70 - 110 mg/dL [facility] CHLORIDE 104 95 - 110 mEq/L [facility] ANION GAP 10 9 - 20 mEq/L [facility] SODIUM 141 136 - 145 mEq/L [facility] Blood specimen (specimen) 11/15/2007 5:03 AM CDT 11/15/2007 6:00 AM CDT us Angel Rene DO CHEMISTRY ORDERABLES Final Result [facility] [address] [place] [address] * (ABNORMAL) CBC WITH DIFFERENTIAL (11/15/2007 5:03 AM CDT) LYMPHOCYTE ABSOLUTE 1.4 1.2 - 4.0 K/ul [facility] MCV 82.2(L) 84.0 - 103.0 Fl [facility] MPV 10.2 8.9 - 12.8 Fl [facility] BASOPHILS ABSOLUTE 0.0 0.0 - 0.2 K/ul [facility] BASOPHILS 0.1 0.0 - 1.0 % [facility] HEMOGLOBIN 9.6(L) 12.0 - 16.0 g/dL [facility] RDW 14.7(H) 11.0 - 14.5 % [facility] MONOCYTE ABSOLUTE 0.7(H) 0.1 - 0.6 K/ul [facility] MONOCYTES 9.6 2.0 - 10.0 % [facility] WBC 7.2 4.5 - 11.0 K/ul [facility] MCH 25.2(L) 27.0 - 34.0 pg [facility] NEUTROPHIL ABSOLUTE 4.6 2.0 - 8.0 K/ul [facility] NEUTROPHILS 64.0 42.2 - 75.2 % [facility] HEMATOCRIT 31.3(L) 36.0 - 46.0 % [facility] PLATELETS 220 140 - 440 K/ul [facility] EOSINOPHILS 6.7 0.0 - 7.0 % [facility] EOSINOPHIL ABSOLUTE 0.5 0.0 - 0.7 K/ul [facility] RBC 3.81(L) 4.20 - 5.40 Mil/ul [facility] MCHC 30.7 30.0 - 35.0 g/dL [facility] LYMPHOCYTES 19.6(L) 24.0 - 44.0 % [facility] Blood specimen (specimen) 11/15/2007 5:03 AM CDT 11/15/2007 6:00 AM CDT Angel Rene DO HEMATOLOGY ORDERABLES Mercedes l Result Performing Organization Address [facility] de Phone Number [facility] [address] [place] [address] * MAGNESIUM LEVEL (11/14/2007 4:21 AM CDT) MAGNESIUM 1.9 1.7 - 2.4 mg/dL [facility] Blood specimen (specimen) 11/14/2007 4:21 AM CDT 11/14/2007 4:43 AM CDT Angel Rene DO CHEMISTRY ORDERABLES Final Result Performing Organization Address [facility] Phone Number [facility] [address] [place] [address] * (ABNORMAL) BASIC METABOLIC PANEL (11/14/2007 4:21 AM CDT) CREATININE 0.5(L) 0.7 - 1.2 mg/dL [facility] CALCIUM 8.2(L) 8.4 - 10.5 mg/dL [facility] GLUCOSE 113(H) 70 - 110 mg/dL [facility] CHLORIDE 110 95 - 110 mEq/L [facility] SODIUM 139 136 - 145 mEq/L [facility] ANION GAP 10 9 - 20 mEq/L [facility] BUN 4(L) 7 - 17 mg/dL [facility] CO2 23 22 - 32 mmol/l [facility] OSMOLALITY, CALCULATED 284 275 - 295 mOsm/Kg [facility] POTASSIUM 4.0 3.5 - 5.0 mEq/L [facility] Blood specimen (specimen) 11/14/2007 4:21 AM CDT 11/14/2007 4:43 AM CDT Angel Rnee DO CHEMISTRY ORDERABLES Final Result [facility] [address] [place] [address] * (ABNORMAL) CBC WITH DIFFERENTIAL (11/14/2007 4:21 AM CDT) RBC 3.84(L) 4.20 - 5.40 Mil/ul [facility] MCHC 30.7 30.0 - 35.0 g/dL [facility] MONOCYTE ABSOLUTE 0.6 0.1 - 0.6 K/ul [facility] LYMPHOCYTES 31.5 24.0 - 44.0 % [facility] MCV 81.5(L) 84.0 - 103.0 Fl [facility] NEUTROPHIL ABSOLUTE 2.4 2.0 - 8.0 K/ul [facility] MPV 10.3 8.9 - 12.8 Fl [facility] HEMOGLOBIN 9.6(L) 12.0 - 16.0 g/dL [facility] MONOCYTES 11.6(H) 2.0 - 10.0 % [facility] RDW 14.8(H) 11.0 - 14.5 % [facility] EOSINOPHIL ABSOLUTE 0.4 0.0 - 0.7 K/ul [facility] WBC 5.0 4.5 - 11.0 K/ul [facility] NEUTROPHILS 48.7 42.2 - 75.2 % [facility] MCH 25.0(L) 27.0 - 34.0 pg [facility] LYMPHOCYTE ABSOLUTE 1.6 1.2 - 4.0 K/ul [facility] HEMATOCRIT 31.3(L) 36.0 - 46.0 % [facility] PLATELETS 217 140 - 440 K/ul [facility] EOSINOPHILS 8.2(H) 0.0 - 7.0 % [facility] Blood specimen (specimen) 11/14/2007 4:21 AM CDT 11/14/2007 4:43 AM CDT us Angel Rene DO HEMATOLOGY ORDERABLES Mercedes l Result [facility] [place] [address] * CT ABDOMEN PELVIS W CONTRAST (11/13/2007 [...] (small) documented in this encounter Care Teams Children'S Zoo Caretaker Relationship Specialty Start Date End Date Non-Staff, Physician NO ADDRESS ON FILE PCP - General 07/02/07 documented as of this encounter
--- NOTE | 2025-06-06 05:57 | ED_ITS ---
HPI - Extremity Problem 2 General: Chief complaint: Extremity Problem,Nontraumatic Stated complaint: bilateral leg spasms Time Seen by Provider: 06/06/25 05:55 Source: patient and EMS Mode of arrival: EMS Limitations: no limitations History of Present Illness: 60-year-old female states that started h aving diarrhea this morning states she started having some muscle spasms in her hands and legs. States that her hands and legs and both cramped up. States her diarrhea is improved still having some mild cramps states that improved as well. She denies any blood in her stool denies any fevers. Denies any worse improving factors Related Data Home Medications ?Medication ?Instructions ?Recorded ?Confirmed nitroglycerin 0.4 mg sublingual 0.4 mg sublingual Q5M PRN Chest 07/16/23 06/01/25 tablet (Nitrostat) Pain awbfsmf-kgnnvidhnawpn-fnjytthv 250 2 tab PO Q6H PRN Pa in 07/07/24 06/01/25 mg-250 mg-65 mg tablet (Excedrin Extra Strength) cholecalciferol (vitamin D3) 50 2,000 unit PO DAILY 06/01/25 mcg (2,000 unit) capsule (Vitamin D3) Previous Rx's ?Medication ?Instructions ?Recorded tizanidine 2 mg tablet 2 mg PO Q6H PRN Spasms 14 da ys #30 05/18/24 tabs pantoprazole 40 mg tablet,delayed 40 mg PO BID 30 days #60 tabs 05/04/25 release (Protonix) carboxymethylcellulose sodium 1 % 2 drp ophthalmic (ey e) 5XD PRN dry 05/23/25 eye drops (Artificial Tears eye(s) #15 mL (carboxymethylcellulose)) prednisone 20 mg tablet 60 mg (3 x 20 mg) PO DAILY # 20 tabs 05/23/25 Allergies Allergy/AdvReac Type Severity Reaction Status Date / Time diphenhydramine (From Allergy Unknown Verified 06/06/25 04:06 Benadryl) hydromorphone (From Dilaudid) Allergy ADR-Vomitin Verified 06/06/25 04:06 g ibuprofen (From Motrin) Allergy ALGY-Anaphy Verified 06/06/25 04:06 laxis Penicillins Allergy ALGY-Anaphy Verified 06/06/25 04:06 laxis tramadol Allergy Unknown Verified 06/06/25 04:06 Review of Systems 2 GI: Reports: diarrhea PFSH ED 2 PFSH: Medical History HTN (hypertension) Atherosclerotic heart disease of [place] coronary artery with other forms of angina pectoris Other chest pain Small bowel obstruction Microcytic anemia Leukocytosis Dyslipidemia Nondisplaced fracture of fifth right metatarsal bone Fracture of fourth metatarsal bone of right foot SOB (shortness of breath) Hx of COPD, 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,quit in 2000 Metatarsal bone fracture Dysphagia Weight loss Peripheral neuropathy Abnormal EKG GERD (gastroesophageal reflux disease) Benign essential hypertension with target blood pressure below 140/90 Bradycardia AV block, 2nd degree Recurrent vomiting Nausea and vomiting Elevated blood pressure reading Unstable angina Chest pain Palpitations Chest pain Emphysema of lung Quit in 2019 Chronic migraine without aura, intractable, with status migrainosus Surgical History Status post colon resection H/O colonoscopy History of surgery ULCERS AND PART OF STOMACH REMOVED History of colon resection History of hysterectomy History of appendectomy History of cholecystectomy Family History Mother CAD (coronary artery disease), Onset Age: 50 Cancer Lung disease Stroke Denies family history of Diabetes Clotting disorder Dementia Chronic kidney disease (CKD) Suicide Anesthesia complication Bleeding disorder Social History Smoking and tobacco/nicotine status: former use of tobacco/nicotine Alcohol intake: former Substance/Drug Use: never Physical Exam 2 Const: COMMON NORMALS: no acute distress, patient oriented x3 and healthy appearing HENMT: COMMON NORMALS: normocephalic and atraumatic HEAD & SCALP: n ormocephalic and atraumatic Neck/C-Spine: COMMON NORMALS: full ROM and supple Chest: COMMONS NORMALS: normal inspection of the chest and normal palpation of entire chest wall Resp: COMMON NORMALS: normal respiratory effort, No retractions, No use of accessory muscles and clear to auscultation bilaterally AUSCULTATION: clear to auscultation bilaterally Cardio: COMMON NORMALS: regular rate, regular rhythm and No murmurs present (Cardio) RATE: regular rate RHYTHM: regular rhythm GI: COMMON NORMALS: Normal to inspection, nondistended, normoactive bowel sounds present, Soft to palpation, non-tender and no masses PALPATION: Yes Soft to palpation Extremity: COMMON NORMALS: normal to inspection and full ROM Neuro: COMMON NORMALS: patient oriented x3, moves all extremities and no focal motor deficits Psych: COMMON NORMALS: mental status grossly normal, Normal thought process present and cooperative THOUGHT PROCESS: Normal thought process present Skin: COMMON NORMALS: no rashes or lesions noted and no wounds GENERAL SKIN EXAM: no rashes or lesions noted Course 2 Vital Signs: Vital signs: Vital Signs Temperature 98.0 F 06/06/25 04:00 Pulse Rate 105 H 06/06/25 06:47 Respiratory Rate 18 06/06/25 04:00 Blood Pressure 124/71 06/06/25 06:47 Pulse Oximetry 100 06/06/25 06:47 Oxygen Delivery Me thod Room Air 06/06/25 06:47 MDM - Extremity (Nontraumatic) Medical Decision Making Patient presents for muscle spasms in her hands along with legs that is since resolved. Differential included hypokalemia. CBC BMP here is normal no signs of hypokalemia. She has felt much improved. Had no more spasms been able to tolerate p.o. She has had no diarrhea here as well. Her vitals here are normal did go over her lab work with her she is follow-up her PCP and return if worsening she understands agrees to plan Medical Records I reviewed the patient's medical records. Lab Data I reviewed the patient's lab results. 06/06/25 07:00 06/06/25 07:00 Laboratory Results WBC 12.28 10^3/uL (3.29-11.43) H 06/06/25 07:00 RBC 4.24 10^6/uL (3.85-5.65) 06/06/25 07:00 Hgb 10.10 g/dL (11.27-16.99) L 06/06/25 07:00 Hct 36.6 % (36-47) 06/06/25 07:00 MCV 86.3 fl (85-98) 06/06/25 07:00 MCH 23.8 pg (27-33) L 06/06/25 07:00 MCHC 27.6 g/dL (30-55) L 06/06/25 07:00 RDW 15.9 % (12.1-15.1) H 06/06/25 07:00 Plt Count 242 10^3/cmm (157-399) 06/06/25 07:00 MPV 9.7 fL (7.4-10.4) 06/06/25 07:00 Neut % (Auto) 84.1 % 06/06/25 07:00 Lymph % (Auto) 7.8 % 06/06/25 07:00 [place] % (Auto) 6.1 % 06/06/25 07:00 Eos % (Auto) 1.1 % 06/06/25 07:00 Baso % (Auto) 0.2 % 06/06/25 07:00 Neut # (Auto) 10.33 10^3/uL (1.8-7.7) H 06/06/25 07:00 Lymph # (Auto) 1.0 10^3/uL (0.8-4.8) 06/06/25 07:00 [place] # (Auto) 0.8 10^3/uL (0.2-0.9) 06/06/25 07:00 Eos # (Auto) 0.1 10^3/uL (0.0-0.8) 06/06/25 07:00 Baso # (Auto) 0.0 10^3/uL (0.0-0.1) 06/06/25 07:00 Nucleated RBC % (auto) 0 % 06/06/25 07:00 Nucleated RBCs # 0.0 /100WBC 06/06/25 07:00 Sodium 138 mmol/L (136-145) 06/06/25 07:00 Potassium 4.1 mmol/L (3.5-5.1) 06/06/25 07:00 Chloride 107 mmol/L (98-107) 06/06/25 07:00 Carbon Dioxide 20 mmol/L (22-29) L 06/06/25 07:00 Anion Gap 15.1 (5-19) 06/06/25 07:00 BUN 12 mg/dL (8-23) 06/06/25 07:00 Creatinine 0.6 mg/dL (0.5-0.9) 06/06/25 07:00 GFR Calculation 102.0 mL/min (90-130) 06/06/25 07:00 Glucose 107 mg/dL (65-115) 06/06/25 07:00 Calculated Osmolality 286 mOsm/kg (285-295) 06/06/25 07:00 Calcium 8.7 mg/dL (8.5-10.5) 06/06/25 07:00 Total Bilirubin 0.2 mg/dL (0.15-1.2) 06/06/25 07:00 AST 21 U/L (0-32) 06/06/25 07:00 ALT 21 U/L (0-33) 06/06/25 07:00 Alkaline Phosphatase 84 U/L (35-105) 06/06/25 07:00 Total Protein 6.2 g/dL (6.6-8.7) L 06/06/25 07:00 Albumin 3.9 g/dL (3.5-5.2) 06/06/25 07:00 Globulin 2.3 g/dL (1.3-4.6) 06/06/25 07:00 No radiology studies performed this visit Discharge Plan Discharge Patient Disposition: Home Clinical Impression: Muscle spasm Condition: Stable Prescriptions: No Action tizanidine 2 mg tablet 2 mg PO Q6H PRN (Reason: Spasms) 14 Days Qty: 30 1RF cholecalciferol (vitamin D3) [Vitamin D3] 50 mcg (2,000 unit) capsule 2,000 unit PO DAILY pantoprazole [Protonix] 40 mg tablet,delayed release (DR/EC) 40 mg PO BID 30 Days Qty: 60 1RF prednisone 20 mg tablet 60 mg PO DAILY Qty: 20 0RF Rx Instructions: 3 tabs (60 mg) x 3 days. 2 tabs (40 mg) x 3 days. 1 tab (20 mg) x 3 days. 1/2 tab (10 mg) x 4 days Artificial Tears (cmc) 1 % drops 2 drp ophthalmic (eye) 5XD PRN (Reason: dry eye(s)) Qty: 15 1RF nitroglycerin [Nitrostat] 0.4 mg Tablet, Sublingual 0.4 mg SUBLINGUAL Q5M PRN (Reason: Chest Pain) Rx Instructions: do not exceed 3 doses per episode jdurgiu-vafoqzbudcazz-wnntoebl [Excedrin Extra Strength] 250-250-65 mg Tablet 2 tab PO Q6H PRN (Reason: Pain) Discharge Orders: Discharge ED (Routine); Ordered 06/06/25 Ordered By: Loc Triplett Referrals: Delonte Golden MD [Primary Care Provider, Family Practice] - 1-3 days Discharge Diet: Advance as tolerated Discharge Activity: Resume usual activity Patient Instructions: Muscle Spasm (ED) Print Language: Montenegrin Coding Level of Care Code ED Heavy Duty Mechanic for Storm Wolfe
[2025-06-06 06:47] VITALS: BP 124/71; PULSE 105; O2SAT 100
[2025-06-06 07:12] LABS: Hematocrit 36.6 % (36-47); Hemoglobin 10.10 g/dL (11.27-16.99); Mean Corpuscular HGB Conc 27.6 g/dL (30-55); Mean Corpuscular Hemoglobin 23.8 pg (27-33); Mean Corpuscular Volume 86.3 fl (85-98); Nucleated Red Blood Cells % 0 %; Platelet Count 242 10^3/cmm (157-399); Red Blood Count 4.24 10^6/uL (3.85-5.65); White Blood Count 12.28 10^3/uL (3.29-11.43)
--- NOTE | 2025-06-06 07:31 | PC.NURSE ---
PER VERBAL ORDERS DR. ISLAS TO HOLD IV FLUIDS.
[2025-06-06 07:33] LABS: Alanine Aminotransferase 21 U/L (0-33); Albumin Level 3.9 g/dL (3.5-5.2); Alkaline Phosphatase 84 U/L (35-105); Anion Gap 15.1 (5-19); Aspartate Amino Transferase 21 U/L (0-32); Blood Urea Nitrogen 12 mg/dL (8-23); Calcium 8.7 mg/dL (8.5-10.5); Carbon Dioxide 20 mmol/L (22-29); Chloride 107 mmol/L (98-107); Creatinine Clr Calc Pharmacy 81.7612; Globulin 2.3 g/dL (1.3-4.6); Glucose 107 mg/dL (65-115); Osmolality Calculated 286 mOsm/kg (285-295); Potassium 4.1 mmol/L (3.5-5.1); Sodium 138 mmol/L (136-145); Total Protein 6.2 g/dL (6.6-8.7)
[2025-06-06 08:00] VITALS: PULSE 101; O2SAT 100
== END 2025-06-06 08:23 | disposition home or self-care (01) ==
PROVIDERS: Emergency Provider Emergency Medicine; PCP Family Medicine
DX: R25.2 Cramp and spasm (principal); Z79.82 Long term (current) use of aspirin; Z87.891 Personal history of nicotine dependence; I25.118 Atherosclerotic heart disease of native coronary artery with other forms of angina pectoris; E78.5 Hyperlipidemia, unspecified; I10 Essential (primary) hypertension; J44.9 Chronic obstructive pulmonary disease, unspecified
CPT/HCPCS: 36415; 80053; 85025; 99283

== ENCOUNTER → 2025-06-13 13:49 | Outpatient (BNVA) | payer MEDICAID, SELFPAY | PROVIDERS: PCP Family Medicine; Visit Provider Internal Medicine Cardiovascular Disease | DX: I25.10 Atherosclerotic heart disease of native coronary artery without angina pectoris (principal); I10 Essential (primary) hypertension; R55 Syncope and collapse; Z87.891 Personal history of nicotine dependence | CPT/HCPCS: 99214 ==

== ENCOUNTER 2025-07-07 00:35 | Emergency (ER) | payer MEDICAID, SELFPAY ==
[2025-07-07] VITALS (9 sets, daily range): BP systolic 113–148; BP diastolic 65–87; PULSE 89–106; RESP 16–22; TEMP 36.9; O2SAT 95–99
--- NOTE | 2025-07-07 00:42 | CTR_ITS ---
PROCEDURE INFORMATION: Exam: CT Abdomen And Pelvis With Contrast Exam date and time: 07/07/2025 1:47 AM Age: 60 years old Clinical indication: Abdominal pain; Prior surgery; Surgery date: 1-6 months; Surgery type: Colon resection; Additional info: Abd pain since 9pm, HX colon resection and bowel obstruction TECHNIQUE: Imaging protocol: Computed tomography of the abdomen and pelvis with contrast. Radiation optimization: All CT scans at this facility use at least one of these dose optimization techniques: automated exposure control; mA and/or kV adjustment per patient size (includes targeted exams where dose is matched to clinical indication); or iterative reconstruction. Contrast material: OMNI 350; Contrast volume: 100 ml; Contrast route: INTRAVENOUS (IV); COMPARISON: CT abdomen pelvis wo con [id number] 05/04/2025 12:32 PM RADIATION DOSE METRICS: Total DLP (mGy-cm): 362.42 FINDINGS: Esophagus: Mild thickening of the distal esophagus. Correlate for esophagitis. Liver: Normal. No mass. Gallbladder and biliary ducts: The gallbladder is surgically absent. Stable bile duct dilatation involving the central and extrahepatic ducts. Smooth tapering to the level of the ampulla is noted. No clear biliary obstruction or stricture is noted. Pancreas: The pancreas is mildly atrophic. No ductal dilatation is seen. No solid mass is seen. Spleen: Normal. No splenomegaly. Adrenal glands: The bilateral adrenal glands are mildly thickened, which is nonspecific but can be seen in the setting of adenomatous hyperplasia. Kidneys and ureters: Bilateral extrarenal pelvises are noted. Stomach and bowel: Postoperative changes from gastric bypass are noted. No acute complication. High-grade bowel obstruction with transition point in the right lower quadrant (series 4, image 49, series 6, image 31), likely adhesive. Distal small bowel is decompressed. No pneumatosis. No portal venous gas. Mild small bowel wall thickening is noted. Mild long segment circumferential wall thickening of the transverse colon extending into the splenic flexure is noted. Mild pericolonic fat stranding is present. Appendix: No evidence of appendicitis. Intraperitoneal space: No ascites is present. No free intraperitoneal air. Vasculature: Questioned mild short-segment stenosis of the celiac origin (limited by volume averaging). Lymph nodes: Unremarkable. No enlarged lymph nodes. Urinary bladder: Unremarkable as visualized. Reproductive: Unremarkable as visualized. Bones/joints: Pectus excavatum is noted. Soft tissues: Unremarkable. CT/CT abdomen pelvis w con* [id number] IMPRESSION: 1. High-grade bowel obstruction. Transition point in the right lower quadrant as noted above. Recommend enteric tube decompression. Recommend surgical consultation. No definite ischemic changes at this time. 2. Findings concerning for colitis involving the transverse colon and splenic flexure. 3. Stable intra and extrahepatic bile duct dilatation favored to represent reservoir effect in the post cholecystectomy state. Consider correlation with LFTs/bilirubin. Nonemergent follow-up MRCP can be obtained if clinically indicated. 4. Incidental adrenal gland thickening, which can be seen in the setting of adenomatous hyperplasia. 5. Mild thickening of the distal esophagus. Correlate for esophagitis. Nonemergent endoscopy could be considered if clinically indicated.
--- OUTSIDE RECORDS SUMMARY | 2025-07-07 00:43 | XMS_ITS | Encounter Summary ---
Author Organization [facility] Address [address] [place] [address] Care Team Providers Care Materials Assistant Name Role Phone Non-Staff, Physician Primary Care Provider Unava ilable Encounter Details Date Type Department Care Team (Late st Contact Info) Description 07/30/2007 Emergency [facility] Emergency Department [address] 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
--- OUTSIDE RECORDS SUMMARY | 2025-07-07 00:43 | XMS_ITS | Encounter Summary ---
Author Organization [facility] Address [address] [place] [address] Care Team Providers Care Instructor Tap Dancing Name Role Phone Non-Staff, Physician Primary Care Provider Unava ilable Encounter Details Date Type Department Care Team (Late st Contact Info) Description 08/02/2007 Outpatient [facility] [address] [place] [address] AMBULANCE, 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
--- OUTSIDE RECORDS SUMMARY | 2025-07-07 00:43 | XMS_ITS | Encounter Summary ---
Author Organization [facility] Address [address] [place] [address] Care Team Providers Care Audit Reviewer Name Role Phone Non-Staff, Physician Primary Care Provider Unava ilable Encounter Details Date Type Department Care Team (Late st Contact Info) Description 07/28/[address] [facility] [address] 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
--- OUTSIDE RECORDS SUMMARY | 2025-07-07 00:43 | XMS_ITS | Encounter Summary ---
Author Organization [facility] Address [address] [place] [address] Care Team Providers Care Gas Plant Repairer Name Role Phone Non-Staff, Physician Primary Care Provider Unava ilable Encounter Details Date Type Department Care Team (Late st Contact Info) Description 07/17/2007 Emergency [facility] Emergency Department [address] 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 Gender Identity Not on file Sexual Orientation Not on file documented as of this encounter Plan of Treatment Not on file documented as of this encounter Procedures Procedure Name Priority Date/Time Associated Diagnosis Comments URINALYSIS MICROSCOPY ONLY Routine 07/17/2007 5:15 PM REWINDER OPERATOR HELPER CBC WITH DIFFERENTIAL Routine 07/17/2007 5:15 PM REWINDER OPERATOR HELPER URINALYSIS W/REFLEX MICROSCOPIC Routine 07/17/2007 5:15 PM REWINDER OPERATOR HELPER COMPREHENSIVE METABOLIC PANEL Routine 07/17/2007 5:15 PM REWINDER OPERATOR HELPER HCG QUANTITATIVE, BLOOD Routine 07/17/2007 5:00 PM REWINDER OPERATOR HELPER documented in this encounter Results * (ABNORMAL) URINALYSIS MICROSCOPY ONLY (07/17/2007 5:15 PM REWINDER OPERATOR HELPER) WBC URINE 3-5(A) 0 - 2 INTERFACE SYSTEM RBC UA 0-2 0 - 2 INTERFACE SYSTEM HYALINE CAST None Seen 0 - 2 INTERFA CE SYSTEM BACTERIA UA Many(A) None Seen INTERFAC E SYSTEM 07/17/2007 5:15 PM REWINDER OPERATOR HELPER Renetta Abreu MD URINE ORDERABLES Edited Performing Organization Address [facility] Phone Number INTERFACE SYSTEM Refer to clinic/hospital department * (ABNORMAL) URINALYSIS (07/17/2007 5:15 PM REWINDER OPERATOR HELPER) COLOR UA Yellow Straw INTERFACE SYSTEM CLARITY [...] Yes(A) No INTERFACE SYSTEM 07/17/2007 5:15 PM REWINDER OPERATOR HELPER Result [facility] Renetta Abreu MD URINE ORDERABLES Edited Performing Organization Address [facility] INTERFACE SYSTEM Refer to clinic/hospital department * (ABNORMAL) COMPREHENSIVE METABOLIC PANEL (07/17/2007 5:15 PM REWINDER OPERATOR HELPER) GLOBULIN (CALC) 2.6 2.4 - 3.9 g/dL [...] 295 mOsm/Kg INTERFACE SYSTEM 07/17/2007 5:15 PM REWINDER OPERATOR HELPER Renetta Abreu MD CHEMISTRY ORDERABLES Edited INTERFACE SYSTEM Refer to clinic/hospital department * (ABNORMAL) CBC WITH DIFFERENTIAL (07/17/2007 5:15 PM REWINDER OPERATOR HELPER) WBC 6.1 4.5 - 11.0 K/ul INTERFACE [...] Automated Diff INTERFACE SYSTEM 07/17/2007 5:15 PM REWINDER OPERATOR HELPER us Renetta Abreu MD HEMATOLOGY ORDERABLES Edited Performing Organization Address [facility] Phone Number INTERFACE SYSTEM Refer to clinic/hospital department * BETA HCG QUANTITATIVE, BLOOD (07/17/2007 5:00 PM REWINDER OPERATOR HELPER) CHORIONIC GONADOTROPIN, TOTAL <2.0 0.0 - 10.0 mlU/ML INTERFACE SYSTEM 07/17/2007 5:00 PM REWINDER OPERATOR HELPER us Renetta Abreu MD CHEMISTRY ORDERABLES Edited Performing Organization Address [facility] Phone Number INTERFACE SYSTEM Refer to clinic/hospital department documented in this encounter Visit Diagnoses Not on filedocumented in this encounter Care Teams Gas Plant Repairer Relationship Specialty Start Date End Date Non-Staff, Physician NO ADDRESS ON FILE PCP - General 07/02/07 documented as of this encounter
--- OUTSIDE RECORDS SUMMARY | 2025-07-07 00:43 | XMS_ITS | Clinical Summary ---
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
--- OUTSIDE RECORDS SUMMARY | 2025-07-07 00:43 | XMS_ITS | Encounter Summary ---
Author Organization [facility] Address [address] [place] [address] Care Team Providers Care Track Layer Name Role Phone Non-Staff, Physician Primary Care Provider Unava ilable Encounter Details Date Type Department Care Team (Late st Contact Info) Description 07/18/2007 Outpatient [facility] [address] 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
--- OUTSIDE RECORDS SUMMARY | 2025-07-07 00:43 | XMS_ITS | Encounter Summary ---
Author Organization [employer] [facility] Address [address] [place] [address] Care Team Providers Care Technical Sales Specialist Name Role Phone Non-Staff, Physician Primary Care Provider Unava ilable Encounter Details Date Type Department Care Team (Late st Contact Info) Description 07/06/2007 Outpatient Historical [facility] [address] 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
--- OUTSIDE RECORDS SUMMARY | 2025-07-07 00:43 | XMS_ITS | Encounter Summary ---
Author Organization [employer] [facility] Address [address] [place] [address] Care Team Providers Care Tower Director Name Role Phone Non-Staff, Physician Primary Care Provider Unava ilable Encounter Details Date Type Department Care Team (Late st Contact Info) Description 08/07/2007 Outpatient Historical [facility] [address] 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
--- OUTSIDE RECORDS SUMMARY | 2025-07-07 00:43 | XMS_ITS | Encounter Summary ---
Author Organization [facility] Address [address] [place] [address] Care Team Providers Care Planting Machine Crewman Name Role Phone Non-Staff, Physician Primary Care Provider Unava ilable Encounter Details Date Type Department Care Team (Late st Contact Info) Description 08/15/2007 Emergency [facility] Emergency Department [address] [place] [address] Ed, Physician NO ADDRESS ON FILE Prabhjot Bartlett PA [address] [place] [address] Lumbago; Personal History of Injury, Presenting Hazards to Health; Personal History of Allergy to Penicillin; Personal History of Allergy to Other Specified Medicinal Agents Social History Tobacco Use Types Packs/Day Years Used Date Smoking Tobacco: Never Assessed Comments Unknown Sex and Gender Information Value Date Recorded Sex Assigned at Not on file Legal Sex Female 6:52 AM SCRAP CRANE OPERATOR Gender Identity Not on file Sexual Orientation Not on file documented as of this encounter Plan of Treatment Not on file documented as of this encounter Visit Diagnoses Diagnosis Lumbago Personal history of injury, presenting hazards to health Personal history of allergy to penicillin Personal history of allergy to other specified medicinal agents documented in this encounter Care Teams Planting Machine Crewman Relationship Specialty Start Date End Date Non-Staff, Physician NO ADDRESS ON FILE PCP - General 07/02/07 documented as of this encounter
--- OUTSIDE RECORDS SUMMARY | 2025-07-07 00:43 | XMS_ITS | Encounter Summary ---
Author Organization [employer] Address [address] [place] [address] Care Team Providers Care Shotgun Shell Reprinting Unit Operator Name Role Phone Non-Staff, Physician Primary Care Provider Unava ilable Encounter Details Date Type Department Care Team (Late st Contact Info) Description 08/14/2007 Outpatient [facility] [address] [place] [address] AMBULANCE, [facility] Chronic Airway Obstruction, not Elsewhere Classified (CMS/[facility]); Encounter for Long-Term (Current) Use of Other Medications; Personal History of Allergy to Penicillin; Personal History of Allergy to Analgesic Agent Social History Tobacco Use Types Packs/Day Years Used Date Smoking Tobacco: Never Assessed Comments Unknown Sex and Gender Information Value Date Recorded Sex Assigned at Not on file Legal Sex Female 6:52 AM CONDUIT BENDER Gender Identity Not on file Sexual Orientation [...] agent documented in this encounter Care Teams Shotgun Shell Reprinting Unit Operator Relationship Specialty Start Date End Date Non-Staff, Physician NO ADDRESS ON FILE PCP - General 07/02/07 documented as of this encounter
--- OUTSIDE RECORDS SUMMARY | 2025-07-07 00:43 | XMS_ITS | Encounter Summary ---
Author Organization [facility] Address [address] [place] [address] Care Team Providers Care Ironmolder Name Role Phone Non-Staff, Physician Primary Care Provider Unava ilable Encounter Details Date Type Department Care Team (Late st Contact Info) Description 07/28/2007 Emergency [facility] Emergency Department [address] [place] [address] Ed, Physician NO ADDRESS ON [...] on file Legal Sex Female 6:52 AM BRANCH EMPLOYMENT COORDINATOR Gender Identity Not on file Sexual Orientation Not on file documented as of this encounter Plan of Treatment Not on file documented as of this encounter Procedures Procedure Name Priority Date/Time Associated Diagnosis Comments POC GLUCOSE Routine 07/28/2007 3:58 PM BRANCH EMPLOYMENT COORDINATOR documented in this encounter Results * (ABNORMAL) POC GLUCOSE (07/28/2007 3:58 PM BRANCH EMPLOYMENT COORDINATOR) GLUCOSE POC 101(H) 60 - 100 mg/dL INTERFACE SYSTEM 07/28/2007 3:58 PM BRANCH EMPLOYMENT COORDINATOR us Farshad Salinas MD POINT OF CARE TESTING [...] agent documented in this encounter Care Teams Ironmolder Relationship Specialty Start Date End Date Non-Staff, Physician NO ADDRESS ON FILE PCP - General 07/02/07 documented as of this encounter
--- OUTSIDE RECORDS SUMMARY | 2025-07-07 00:43 | XMS_ITS | Encounter Summary ---
Author Organization [facility] Address [address] [place] [address] Care Team Providers Care Design Specialist Name Role Phone Non-Staff, Physician Primary Care Provider Unava ilable Encounter Details Date Type Department Care Team (Late st Contact Info) Description 08/01/2007 Emergency [facility] Emergency Department [address] [place] [address] Ed, Physician NO ADDRESS ON FILE Maxine Hodges MD [address] [facility] [address] [place] [address] Other and Unspecified Ovarian Cyst; Personal History of Peptic Ulcer Disease; Personal History of Allergy to Analgesic Agent; Personal History of Allergy to Penicillin Social History Tobacco Use Types Packs/Day Years Used Date Smoking Tobacco: Never Assessed Comments Unknown Sex and Gender Information Value Date Recorded Sex Assigned at Not on file Legal Sex Female 6:52 AM KEY PUNCH TEACHER Gender Identity Not on file Sexual Orientation Not on file documented as of this encounter Plan of Treatment Not on file documented as of this encounter Procedures Procedure Name Priority Date/Time Associated Diagnosis Comments PT AND APTT Routine 08/01/2007 7:55 PM KEY PUNCH TEACHER CBC WITH DIFFERENTIAL Routine 08/01/2007 7:55 PM KEY PUNCH TEACHER HCG QUANTITATIVE, BLOOD Routine 08/01/2007 7:55 PM KEY PUNCH TEACHER BASIC METABOLIC PANEL Routine 08/01/2007 7:55 PM KEY PUNCH TEACHER documented in this encounter Results * BETA HCG QUANTITATIVE, BLOOD (08/01/2007 7:55 PM KEY PUNCH TEACHER) CHORIONIC GONADOTROPIN, TOTAL <2.0 0.0 - 10.0 mlU/ML INTERFACE SYSTEM 08/01/2007 7:55 PM KEY PUNCH TEACHER us Maxine Hodges MD CHEMISTRY ORDERABLES Edited Performing Organization Address [facility] Phone Number INTERFACE SYSTEM Refer to clinic/hospital department * (ABNORMAL) PT AND APTT (08/01/2007 7:55 PM KEY PUNCH TEACHER) PROTIME 12.5(L) 12.8 - 15.8 Secs INTERFACE SYSTEM INR 0.8 INTERFACE SYSTEM PTT 26.4 21.6 - 35.6 Secs INTERFACE SYSTEM 08/01/2007 7:55 PM KEY PUNCH TEACHER us Maxine Hodges MD HEMATOLOGY ORDERABLES Edite d Performing Organization Address [facility] Number INTERFACE SYSTEM Refer to clinic/hospital department * BASIC METABOLIC PANEL (08/01/2007 7:55 PM KEY PUNCH TEACHER) GLUCOSE 95 70 - 110 mg/dL INTERFACE [...] 295 mOsm/Kg INTERFACE SYSTEM 08/01/2007 7:55 PM KEY PUNCH TEACHER us Maxine Hodges MD CHEMISTRY ORDERABLES Edited Performing Organization Address [facility] Phone Number INTERFACE SYSTEM Refer to clinic/hospital department * (ABNORMAL) CBC WITH DIFFERENTIAL (08/01/2007 7:55 PM KEY PUNCH TEACHER) WBC 8.9 4.5 - 11.0 K/ul INTERFACE [...] Automated Diff INTERFACE SYSTEM 08/01/2007 7:55 PM KEY PUNCH TEACHER Maxine Hodges MD HEMATOLOGY ORDERABLES Edite d INTERFACE SYSTEM Refer to clinic/hospital department documented in this encounter Visit Diagnoses Diagnosis Other and unspecified ovarian cyst Personal history of peptic ulcer disease Personal history of allergy to analgesic agent Personal history of allergy to penicillin documented in this encounter Care Teams Design Specialist Relationship Specialty Start Date End Date Non-Staff, Physician NO ADDRESS ON FILE PCP - General 07/02/07 documented as of this encounter
--- OUTSIDE RECORDS SUMMARY | 2025-07-07 00:43 | XMS_ITS | Encounter Summary ---
Author Organization [facility] Address [address] [place] [address] Care Team Providers Care Pie Filling Mixer Name Role Phone Non-Staff, Physician Primary Care Provider Unava ilable Encounter Details Date Type Department Care Team (Late st Contact Info) Description 07/25/2007 Emergency [facility] Emergency Department [address] [place] [address] Ed, Physician NO ADDRESS ON FILE Marissa Hardin MD NO ADDRESS ON FILE Social History Tobacco Use Types Packs/Day Years Used Date Smoking Tobacco: Never Assessed Comments Unknown Sex and Gender Information Value Date Recorded Sex Assigned at Not on file Legal Sex Female 6:52 AM PILOT PLANT SUPERVISOR Gender Identity Not on file Sexual Orientation Not on file documented as of this encounter Plan of Treatment Not on file documented as of this encounter Visit Diagnoses Not on filedocumented in this encounter Care Teams Pie Filling Mixer Relationship Specialty Start Date End Date Non-Staff, Physician NO ADDRESS ON FILE PCP - General 07/02/07 documented as of this encounter
--- OUTSIDE RECORDS SUMMARY | 2025-07-07 00:43 | XMS_ITS | Patient Health Record ---
Author Organization [facility] Address [address] [place] [address] Care Team Providers Care Track And Field Coach Name Role Phone Carmelo Holguin Unavailable [phone] Reason For Referral No Information Problems Problem Type SNOMED Code ICD Code Onset Dates Problem Status W/U Status Risk Notes Problem Pain in limb (13742270) Leg pain (729.5) 09/06/19 16 Active confirmed [id number]- Problem Migraine with aura (5385907) Classic migraine (346.00) 12/15/19 18 Active confirmed [id number]- Problem Unexplained weight loss (826339399) Unexplained weight loss (783.21) 12/26/19 18 Active confirmed [id number]- Problem Hip pain (44823805) Hip pain (719.45) 09/06/19 16 Active confirmed [id number]- Problem Anemia (484879260) Other specified anemia (285.8) 11/06/19 18 Active confirmed [id number] 11- Problem Headache (80421814) Headache (784.0) 11/06/19 18 Problem resolved confirmed [id number] 11- Problem Vitamin B12 deficiency (non anemic) (72333917) B12 deficiency (266.2) 11/06/19 18 Problem resolved confirmed [id number] 11- Problem 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) Other abnormal findings on blood examination (790.99) 01/16/20 18 Problem resolved confirmed [id number] 11- Problem Pain in female pelvis (631645790) Female pelvic pain (625.9) 09/06/19 16 Problem resolved confirmed [id number] 11- Problem Weight loss (060694665) Weight loss (783.9) 11/06/19 18 Problem resolved confirmed [id number] 11- Problem Emphysema (31596748) Emphysema, other (492.8) 09/06/19 16 Problem resolved confirmed [id number] 11- Problem Exposure to communicable disease (737780708) Contact with or exposure to communicable diseases, unspecified (V01.9) 09/06/19 16 Problem resolved confirmed [id number] 11- Problem Screening for malignant neoplasm of breast (584567229) Screening for breast cancer, unspecified (V76.10) 12/26/19 18 Problem resolved confirmed [id number] 11- Plan Of Treatment No Information
--- OUTSIDE RECORDS SUMMARY | 2025-07-07 00:43 | XMS_ITS | Encounter Summary ---
Author Organization [facility] Address [address] [place] [address] Care Team Providers Care Supervisor Buffing And Pasting Name Role Phone Non-Staff, Physician Primary Care Provider Unava ilable Encounter Details Date Type Department Care Team (Late st Contact Info) Description 07/18/2007 Emergency [facility] Emergency Department [address] [place] [address] Ed, Physician NO ADDRESS ON FILE Justen Lipscomb MD NO ADDRESS ON FILE Social History Tobacco Use Types Packs/Day Years Used Date Smoking Tobacco: Never Assessed Comments Unknown Sex and Gender Information Value Date Recorded Sex Assigned at Not on file Legal Sex Female 6:52 AM BLANKING MACHINE OPERATOR Gender Identity Not on file Sexual Orientation Not on file documented as of this encounter Plan of Treatment Not on file documented as of this encounter Procedures Procedure Name Priority Date/Time Associated Diagnosis Comments CBC WITH DIFFERENTIAL Routine 07/18/2007 3:32 PM BLANKING MACHINE OPERATOR COMPREHENSIVE METABOLIC PANEL Routine 07/18/2007 3:32 PM BLANKING MACHINE OPERATOR documented in this encounter Results * (ABNORMAL) COMPREHENSIVE METABOLIC PANEL (07/18/2007 3:32 PM BLANKING MACHINE OPERATOR) GLUCOSE 94 70 - 110 mg/dL INTERFACE [...] 295 mOsm/Kg INTERFACE SYSTEM 07/18/2007 3:32 PM BLANKING MACHINE OPERATOR us Physician Sj Ed CHEMISTRY ORDERABLES Edited INTERFACE SYSTEM Refer to clinic/hospital department * (ABNORMAL) CBC WITH DIFFERENTIAL (07/18/2007 3:32 PM BLANKING MACHINE OPERATOR) WBC 6.5 4.5 - 11.0 K/ul INTERFACE [...] Automated Diff INTERFACE SYSTEM 07/18/2007 3:32 PM BLANKING MACHINE OPERATOR us Physician Sj Ed HEMATOLOGY ORDERABLES Edited INTERFACE SYSTEM Refer to clinic/hospital department documented in this encounter Visit Diagnoses Not on filedocumented in this encounter Care Teams Supervisor Buffing And Pasting Relationship Specialty Start Date End Date Non-Staff, Physician NO ADDRESS ON FILE PCP - General 07/02/07 documented as of this encounter
--- OUTSIDE RECORDS SUMMARY | 2025-07-07 00:43 | XMS_ITS | Encounter Summary ---
Author Organization [employer] [facility] Address [address] [place] [address] Care Team Providers Care Wash Tank Tender Name Role Phone Non-Staff, Physician Primary Care Provider Unava ilable Encounter Details Date Type Department Care Team (Late st Contact Info) Description 07/17/2007 Outpatient Historical [facility] [address] [place] [address] AMBULANCE, [facility] Social History Tobacco Use Types Packs/Day Years Used Date Smoking Tobacco: Never Assessed Comments Unknown Sex and Gender Information Value Date Recorded Sex Assigned at Not on file Legal Sex Female 6:52 AM ENGRAVER OPTICAL FRAMES Gender Identity Not on file Sexual Orientation Not on file documented as of this encounter Plan of Treatment Not on file documented as of this encounter Visit Diagnoses Not on filedocumented in this encounter Care Teams Wash Tank Tender Relationship Specialty Start Date End Date Non-Staff, Physician NO ADDRESS ON FILE PCP - General 07/02/07 documented as of this encounter
--- OUTSIDE RECORDS SUMMARY | 2025-07-07 00:43 | XMS_ITS | Encounter Summary ---
Author Organization [facility] Address [address] [place] [address] Care Team Providers Care Vending Machine Host/Hostess Name Role Phone Non-Staff, Physician Primary Care Provider Unava ilable Encounter Details Date Type Department Care Team (Late st Contact Info) Description 08/14/2007 Emergency [facility] Emergency Department [address] [place] [address] Ed, Physician NO ADDRESS ON [...] on file Legal Sex Female 6:52 AM MULTIFOCAL BUTTON GRINDER Gender Identity Not on file Sexual Orientation Not on file documented as of this encounter Plan of Treatment Not on file documented as of this encounter Procedures Procedure Name Priority Date/Time Associated Diagnosis Comments URINALYSIS W/REFLEX MICROSCOPIC Routine 08/14/2007 6:35 PM MULTIFOCAL BUTTON GRINDER CBC WITH DIFFERENTIAL Routine 08/14/2007 4:16 PM MULTIFOCAL BUTTON GRINDER documented in this encounter Results * URINALYSIS (08/14/2007 6:35 PM MULTIFOCAL BUTTON GRINDER) COLOR UA Straw Straw INTERFACE SYSTEM CLARITY [...] No No INTERFACE SYSTEM 08/14/2007 6:35 PM MULTIFOCAL BUTTON GRINDER Joe Perez MD URINE ORDERABLES Edited INTERFACE SYSTEM Refer to clinic/hospital department * (ABNORMAL) CBC WITH DIFFERENTIAL (08/14/2007 4:16 PM MULTIFOCAL BUTTON GRINDER) WBC 5.4 4.5 - 11.0 K/ul INTERFACE [...] Automated Diff INTERFACE SYSTEM 08/14/2007 4:16 PM MULTIFOCAL BUTTON GRINDER Joe Perez MD HEMATOLOGY ORDERABLES Edit ed INTERFACE SYSTEM Refer to clinic/hospital department documented in this encounter Visit Diagnoses Diagnosis Lumbago Chronic airway obstruction, not elsewhere classified (CMS/[facility]) Chronic airway obstruction, not elsewhere classified Encounter for long-term (current) use of other medications Personal history of allergy to penicillin Personal history of allergy to analgesic agent documented in this encounter Care Teams Vending Machine Host/Hostess Relationship Specialty Start Date End Date Non-Staff, Physician NO ADDRESS ON FILE PCP - General 07/02/07 documented as of this encounter
--- OUTSIDE RECORDS SUMMARY | 2025-07-07 00:43 | XMS_ITS | Encounter Summary ---
Author Organization [facility] Address [address] [place] [address] Care Team Providers Care Production Team Advisor Name Role Phone Non-Staff, Physician Primary Care Provider Unava ilable Encounter Details Date Type Department Care Team (Late st Contact Info) Description 07/27/2007 Emergency [facility] Department [address] [place] [address] Ed, Physician NO ADDRESS ON FILE Justen Lipscomb MD NO ADDRESS ON FILE Social History Tobacco Use Types Packs/Day Years Used Date Smoking Tobacco: Never Assessed Comments Unknown Sex and Gender Information Value Date Recorded Sex Assigned at Not on file Legal Sex Female 6:52 AM OPERATING ROOM MANAGER Gender Identity Not on file Sexual Orientation Not on file documented as of this encounter Plan of Treatment Not on file documented as of this encounter Visit Diagnoses Not on filedocumented in this encounter Care Teams Production Team Advisor Relationship Specialty Start Date End Date Non-Staff, Physician NO ADDRESS ON FILE PCP - General 07/02/07 documented as of this encounter
--- OUTSIDE RECORDS SUMMARY | 2025-07-07 00:43 | XMS_ITS | Encounter Summary ---
Author Organization [facility] Address [address] [place] [address] Care Team Providers Care Warp Trucker Name Role Phone Non-Staff, Physician Primary Care Provider Unava ilable Encounter Details Date Type Department Care Team (Late st Contact Info) Description 08/01/2007 Outpatient Historical [facility] [address] [place] [address] AMBULANCE, [facility] Social History Tobacco Use Types Packs/Day Years Used Date Smoking Tobacco: Never Assessed Comments Unknown Sex and Gender Information Value Date Recorded Sex Assigned at Not on file Legal Sex Female 6:52 AM VERIFIER OPERATOR Gender Identity Not on file Sexual Orientation Not on file documented as of this encounter Plan of Treatment Not on file documented as of this encounter Visit Diagnoses Not on filedocumented in this encounter Care Teams Warp Trucker Relationship Specialty Start Date End Date Non-Staff, Physician NO ADDRESS ON FILE PCP - General 07/02/07 documented as of this encounter
--- OUTSIDE RECORDS SUMMARY | 2025-07-07 00:43 | XMS_ITS | Clinical Summary ---
Author Organization [facility] Address [address] [facility] Attn: [place] [address] Care Team Providers Care Geography Head Name Role Phone Non-Staff, Physician Primary Care Provider Unava ilable Social History Tobacco Use Types Packs/Day Years Used Date Smoking Tobacco: Never Assessed Comments Unknown Sex and Gender Information Value Date Recorded Sex Assigned at Not on file Legal Sex Female 12:02 PM HEALTH BENEFITS SPECIALIST Gender Identity Not on file Sexual Orientation Not on file Plan of Treatment Upcoming Encounters Date Type Department Care Team (Late st Contact Info) Description 09/13/2025 12:00 PM HEALTH BENEFITS SPECIALIST Office Visit [facility] - [place] [address] [place] [address] Yevgeniy Allen MD [address] [place] [address] Health Maintenance Due Date Last [...] to complete this topic Insurance MEDICAID [place] Care Teams Geography Head Relationship Specialty Start Date End Date Non-Staff, Physician NO ADDRESS ON FILE PCP - General 07/02/07
--- OUTSIDE RECORDS SUMMARY | 2025-07-07 00:43 | XMS_ITS | Encounter Summary ---
Author Organization [employer] [facility] Address [address] [place] [address] Care Team Providers Care Personal Support Worker Name Role Phone Non-Staff, Physician Primary Care Provider Unava ilable Encounter Details Date Type Department Care Team (Late st Contact Info) Description 07/01/2007 Outpatient Historical HIS IN BED Sj Ed, Physician NO ADDRESS ON FILE Marissa Hardin MD NO ADDRESS ON FILE Chon Mobley MD [address] [place] [address] Namita Grant MD [address] [place] [address] Luis Alfredo Slade MD [address] [place] [address] Amado Hope MD NO ADDRESS ON FILE Mal Baer, DO [address] [place] [address] Adjustment Disorder with Depressed Mood; [...] on file Legal Sex Female 6:52 AM COFFEE SHOP AIDE Gender Identity Not on file Sexual Orientation Not on file documented as of this encounter Plan of Treatment Not on file documented as of this encounter Procedures Procedure Name Priority Date/Time Associated Diagnosis Comments CBC WITH DIFFERENTIAL Routine 07/09/2007 9:30 AM COFFEE SHOP AIDE DIFFERENTIAL, MANUAL Routine 07/07/2007 2:30 AM COFFEE SHOP AIDE CBC WITH DIFFERENTIAL Routine 07/07/2007 2:30 AM COFFEE SHOP AIDE BASIC METABOLIC PANEL Routine 07/07/2007 2:30 AM COFFEE SHOP AIDE URINALYSIS MICROSCOPY ONLY Routine 07/06/2007 1:09 PM COFFEE SHOP AIDE URINALYSIS W/REFLEX MICROSCOPIC Routine 07/06/2007 1:09 PM COFFEE SHOP AIDE ENDOMYSIAL IGA AUTOANTIBODY Routine 07/06/2007 11:38 AM COFFEE SHOP AIDE HEMOGLOBIN AND HEMATOCRIT Routine 07/05/2007 3:28 AM COFFEE SHOP AIDE CBC WITH DIFFERENTIAL Routine 07/04/2007 2:53 AM COFFEE SHOP AIDE BASIC METABOLIC PANEL Routine 07/04/2007 2:53 AM COFFEE SHOP AIDE HEMOGLOBIN AND HEMATOCRIT Routine 07/03/2007 4:05 AM COFFEE SHOP AIDE HEMOGLOBIN AND HEMATOCRIT Routine 07/02/2007 2:09 PM COFFEE SHOP AIDE CARDIAC ENZYMES Routine 07/02/2007 6:27 AM COFFEE SHOP AIDE CBC WITH DIFFERENTIAL Routine 07/02/2007 4:23 AM COFFEE SHOP AIDE COMPREHENSIVE METABOLIC PANEL Routine 07/02/2007 4:23 AM COFFEE SHOP AIDE FOLATE, SERUM Routine 07/02/2007 12:04 AM COFFEE SHOP AIDE IRON, TIBC, AND PERCENT SATURATION Routine 07/02/2007 12:04 AM COFFEE SHOP AIDE CARDIAC ENZYMES Routine 07/02/2007 12:04 AM COFFEE SHOP AIDE FERRITIN Routine 07/02/2007 12:04 AM COFFEE SHOP AIDE VITAMIN B12 LEVEL Routine 07/02/2007 12: 04 AM COFFEE SHOP AIDE XR CHEST PA OR AP 1 VW Routine 7 7:27 PM COFFEE SHOP AIDE CARDIAC ENZYMES Routine 07/01/2007 6:11 PM COFFEE SHOP AIDE CBC WITH DIFFERENTIAL Routine 07/01/2007 6:11 PM COFFEE SHOP AIDE PTT Routine 07/01/2007 6:11 PM COFFEE SHOP AIDE PROTIME-INR Routine 07/01/2007 6:11 PM COFFEE SHOP AIDE HCG QUANTITATIVE, BLOOD Routine 07/01/2007 6:11 PM COFFEE SHOP AIDE TSH Routine 07/01/2007 6:11 PM COFFEE SHOP AIDE BASIC METABOLIC PANEL Routine 07/01/2007 6:11 PM COFFEE SHOP AIDE documented in this encounter Results * (ABNORMAL) CBC WITH DIFFERENTIAL (07/09/2007 9:30 AM COFFEE SHOP AIDE) WBC 6.3 4.5 - 11.0 K/ul INTERFACE [...] Automated Diff INTERFACE SYSTEM 07/09/2007 9:30 AM COFFEE SHOP AIDE Narrative INTERFACE SYSTEM - 07/09/2007 9:41 AM COFFEE SHOP AIDE Ordered by an unspecified provider. Historical Provider HEMATOLOGY ORDERABLES Edited INTERFACE SYSTEM Refer to clinic/hospital department * (ABNORMAL) DIFFERENTIAL, MANUAL (07/07/2007 2:30 AM COFFEE SHOP AIDE) NEUTROPHILS, SEG 60 36 - 66 % [...] Seen INTERFA CE SYSTEM 07/07/2007 2:30 AM COFFEE SHOP AIDE Chon Mobley MD HEMATOLOGY ORDERABLES COM Ed ited INTERFACE SYSTEM Refer to clinic/hospital department * (ABNORMAL) BASIC METABOLIC PANEL (07/07/2007 2:30 AM COFFEE SHOP AIDE) GLUCOSE 69(L) 70 - 110 mg/dL INTERFACE [...] 295 mOsm/Kg INTERFACE SYSTEM 07/07/2007 2:30 AM COFFEE SHOP AIDE Chon Mobley MD CHEMISTRY ORDERABLES Edited Performing Organization Address [facility] de Phone Number INTERFACE SYSTEM Refer to clinic/hospital department * (ABNORMAL) CBC WITH DIFFERENTIAL (07/07/2007 2:30 AM COFFEE SHOP AIDE) WBC 6.0 4.5 - 11.0 K/ul INTERFACE [...] 12.8 Fl INTERFACE SYSTEM 07/07/2007 2:30 AM COFFEE SHOP AIDE Chon Mobley MD HEMATOLOGY ORDERABLES Edited Performing Organization Address [facility] de Phone Number INTERFACE SYSTEM Refer to clinic/hospital department * (ABNORMAL) URINALYSIS MICROSCOPY ONLY (07/06/2007 1:09 PM COFFEE SHOP AIDE) WBC URINE 0-2 0 - 2 INTERFACE SYSTEM RBC UA 6-10(A) 0 - 2 INTERFACE SYSTEM HYALINE CAST None Seen 0 - 2 INTERFA CE SYSTEM BACTERIA UA Many(A) None Seen INTERFAC E SYSTEM 07/06/2007 1:09 PM COFFEE SHOP AIDE us Chon Mobley MD URINE ORDERABLES Edited Performing Organization Address [facility] Phone Number INTERFACE SYSTEM Refer to clinic/hospital department * (ABNORMAL) URINALYSIS (07/06/2007 1:09 PM COFFEE SHOP AIDE) COLOR UA Yellow Straw INTERFACE SYSTEM CLARITY [...] Yes(A) No INTERFACE SYSTEM 07/06/2007 1:09 PM COFFEE SHOP AIDE us Chon Mobley MD URINE ORDERABLES Edited Performing Organization Address [facility] Phone Number INTERFACE SYSTEM Refer to clinic/hospital department * ENDOMYSIAL IGA AUTOANTIBODY (07/06/2007 11:38 AM COFFEE SHOP AIDE) ENDOMYSIAL AB IGA See Sep Report INTERFACE SYSTEM 07/06/2007 11:3 8 AM COFFEE SHOP AIDE us Chon Mobley MD CHEMISTRY ORDERABLES Edited Performing Organization Address [facility] Phone Number INTERFACE SYSTEM Refer to clinic/hospital department * (ABNORMAL) HEMOGLOBIN AND HEMATOCRIT (07/05/2007 3:28 AM COFFEE SHOP AIDE) HEMOGLOBIN 9.8(L) 12.0 - 16.0 g/dL INTERFACE SYSTEM HEMATOCRIT 33.1(L) 36.0 - 46.0 % INTERFACE SYSTEM 07/05/2007 3:28 AM COFFEE SHOP AIDE Chon Mobley MD HEMATOLOGY ORDERABLES Edited Performing Organization Address [facility] Phone Number INTERFACE SYSTEM Refer to clinic/hospital department * (ABNORMAL) BASIC METABOLIC PANEL (07/04/2007 2:53 AM COFFEE SHOP AIDE) GLUCOSE 91 70 - 110 mg/dL INTERFACE [...] 295 mOsm/Kg INTERFACE SYSTEM 07/04/2007 2:53 AM COFFEE SHOP AIDE Chon Mobley MD CHEMISTRY ORDERABLES Edited Performing Organization Address [facility] Phone Number INTERFACE SYSTEM Refer to clinic/hospital department * (ABNORMAL) CBC WITH DIFFERENTIAL (07/04/2007 2:53 AM COFFEE SHOP AIDE) WBC 6.6 4.5 - 11.0 K/ul INTERFACE [...] Automated Diff INTERFACE SYSTEM 07/04/2007 2:53 AM COFFEE SHOP AIDE Chon Mobley MD HEMATOLOGY ORDERABLES Edited Performing Organization Address City/[facility] de Phone Number INTERFACE SYSTEM Refer to clinic/hospital department * (ABNORMAL) HEMOGLOBIN AND HEMATOCRIT (07/03/2007 4:05 AM COFFEE SHOP AIDE) HEMOGLOBIN 9.8(L) 12.0 - 16.0 g/dL INTERFACE SYSTEM HEMATOCRIT 32.0(L) 36.0 - 46.0 % INTERFACE SYSTEM 07/03/2007 4:05 AM COFFEE SHOP AIDE Chon Mobley MD HEMATOLOGY ORDERABLES Edited Performing Organization Address City/[facility] de Phone Number INTERFACE SYSTEM Refer to clinic/hospital department * (ABNORMAL) HEMOGLOBIN AND HEMATOCRIT (07/02/2007 2:09 PM COFFEE SHOP AIDE) HEMOGLOBIN 9.8(L) 12.0 - 16.0 g/dL INTERFACE SYSTEM HEMATOCRIT 31.7(L) 36.0 - 46.0 % INTERFACE SYSTEM 07/02/2007 2:09 PM COFFEE SHOP AIDE Chon Mobley MD HEMATOLOGY ORDERABLES Edited Performing Organization Address City/[facility]/ZIP Co de Phone Number INTERFACE SYSTEM Refer to clinic/hospital department * CARDIAC ENZYMES (07/02/2007 6:27 AM COFFEE SHOP AIDE) TROPONIN I <0.1 0.0 - 1.3 ng/mL INTERFACE SYSTEM Comment: As of 06 the Troponin Reference Range has changed from 0.0-1.5 ng/ml to 0.0- 1.3 ng/ml due to a change in testing methodology. CKMB <0.2 0.0 - 5.0 ng/mL INTERFACE SYSTEM 07/02/2007 6:27 AM COFFEE SHOP AIDE us Marissa Hardin MD CHEMISTRY ORDERABLES Edited Performing Organization Address [facility] Co de Phone Number INTERFACE SYSTEM Refer to clinic/hospital department * (ABNORMAL) COMPREHENSIVE METABOLIC PANEL (07/02/2007 4:23 AM COFFEE SHOP AIDE) GLOBULIN (CALC) 1.7(L) 2.4 - 3.9 g/dL [...] 295 mOsm/Kg INTERFACE SYSTEM 07/02/2007 4:23 AM COFFEE SHOP AIDE us Chon Mobley MD CHEMISTRY ORDERABLES Edited INTERFACE SYSTEM Refer to clinic/hospital department * (ABNORMAL) CBC WITH DIFFERENTIAL (07/02/2007 4:23 AM COFFEE SHOP AIDE) WBC 13.9(H) 4.5 - 11.0 K/ul INTERFACE [...] Automated Diff INTERFACE SYSTEM 07/02/2007 4:23 AM COFFEE SHOP AIDE Chon Mobley MD HEMATOLOGY ORDERABLES Edited INTERFACE SYSTEM Refer to clinic/hospital department * CARDIAC ENZYMES (07/02/2007 12:04 AM COFFEE SHOP AIDE) TROPONIN I <0.1 0.0 - 1.3 ng/mL INTERFACE SYSTEM Comment: As of 06 the Troponin Reference Range has changed from 0.0-1.5 ng/ml to 0.0- 1.3 ng/ml due to a change in testing methodology. CKMB <0.2 0.0 - 5.0 ng/mL INTERFACE SYSTEM 07/02/2007 12:0 4 AM COFFEE SHOP AIDE us Marissa Hardin MD CHEMISTRY ORDERABLES Edited Performing Organization Address City/[facility] Co de Phone Number INTERFACE SYSTEM Refer to clinic/hospital department * (ABNORMAL) VITAMIN B12 (07/02/2007 12:04 AM COFFEE SHOP AIDE) VITAMIN B12 164(L) 211 - 911 pg/dL INTERFACE SYSTEM 07/02/2007 12:0 4 AM COFFEE SHOP AIDE us Chon Mobley MD CHEMISTRY ORDERABLES Edited Performing Organization Address [facility] de Phone Number INTERFACE SYSTEM Refer to clinic/hospital department * FOLATE, SERUM (07/02/2007 12:04 AM COFFEE SHOP AIDE) FOLATE, SERUM 12.54 >=5.38 ng/dL INTERFACE SYSTEM 07/02/2007 12:0 4 AM COFFEE SHOP AIDE us Chon Mobley MD CHEMISTRY ORDERABLES Edited Performing Organization Address City/[facility] de Phone Number INTERFACE SYSTEM Refer to clinic/hospital department * (ABNORMAL) FERRITIN (07/02/2007 12:04 AM COFFEE SHOP AIDE) FERRITIN 3.0(L) 10.0 - 291.0 ng/mL INTERFACE SYSTEM 07/02/2007 12:0 4 AM COFFEE SHOP AIDE Result Luciana Mobley MD CHEMISTRY ORDERABLES Edited Performing Organization Address City/[facility] Co de Phone Number INTERFACE SYSTEM Refer to clinic/hospital department * IRON AND TIBC (07/02/2007 12:04 AM COFFEE SHOP AIDE) TIBC 365 250 - 450 ug/dL INTERFACE SYSTEM IRON % SATURATION 45 15 - 50 % INTERFACE SYSTEM IRON 164 50 - 170 ug/dL INTERFACE SYSTEM Comment: As of Sep 11, 2005 the reference ranges have changed due to new instrumentation. 07/02/2007 12:0 4 AM COFFEE SHOP AIDE Chon Mobley MD CHEMISTRY ORDERABLES Edited INTERFACE SYSTEM Refer to clinic/hospital department * XR CHEST PA OR AP (07/01/2007 7:27 PM COFFEE SHOP AIDE) Anatomical Region Laterality Modality Chest Other 07/01/2007 7:27 PM COFFEE SHOP AIDE Narrative 07/01/2007 7:27 PM COFFEE SHOP AIDE Exam: Chest - PortableDate/Time of Exam: Jul [...] BETA HCG QUANTITATIVE, BLOOD (07/01/2007 6:11 PM COFFEE SHOP AIDE) CHORIONIC GONADOTROPIN, TOTAL <2.0 0.0 - 10.0 mlU/ML INTERFACE SYSTEM Comment: Total HCG levels between 10 mIU/mL and 25 mIU/mL may be indicative of early but need to be correlated with other clinical findings. HCG ranges during normal , as reported by the cancellation clerk, are summarized as follows: Gestational Age Expected hCG Values (mIU/ml) 0.2-1 Weeks 5 - 50 1-2 Weeks 50 - 500 2-3 Weeks 100 - 5,000 3-4 Weeks 1,000 - 50,000 5-6 Weeks 10,000 - 100,000 6-8 Weeks 15,000 - 200,000 2-3 Months 10,000 - 100,000 07/01/2007 6:11 PM COFFEE SHOP AIDE Chon Mobley MD CHEMISTRY ORDERABLES Edited Performing Organization Address [facility] de Phone Number INTERFACE SYSTEM Refer to clinic/hospital department * TSH (07/01/2007 6:11 PM COFFEE SHOP AIDE) TSH 1.770 0.350 - 5.500 uIU/ml INTERFACE SYSTEM 07/01/2007 6:11 PM COFFEE SHOP AIDE Chon Mobley MD CHEMISTRY ORDERABLES Edited Performing Organization Address [facility] de Phone Number INTERFACE SYSTEM Refer to clinic/hospital department * (ABNORMAL) CBC WITH DIFFERENTIAL (07/01/2007 6:11 PM COFFEE SHOP AIDE) WBC 6.0 4.5 - 11.0 K/ul INTERFACE [...] Automated Diff INTERFACE SYSTEM 07/01/2007 6:11 PM COFFEE SHOP AIDE us Marissa Hardin MD HEMATOLOGY ORDERABLES Edited Performing Organization Address City/[facility] Co de Phone Number INTERFACE SYSTEM Refer to clinic/hospital department * PTT (07/01/2007 6:11 PM COFFEE SHOP AIDE) PTT 23.1 21.6 - 35.6 Secs INTERFACE SYSTEM Comment: Therapeutic Range: Hi-level PE/DVT heparin protocol 80.1 -95.0 sec Lo-level PE/DVT heparin protocol 67.1 - 80.0 sec Cardiac Heparin Protocol 67.1 - 85.0 sec Neuro Heparin Protocol 67.1 - 80.0 sec As of 07/09/2006 note change in APTT Normal Range. 07/01/2007 6:11 PM COFFEE SHOP AIDE us Marissa Hardin MD HEMATOLOGY ORDERABLES Edited INTERFACE SYSTEM Refer to clinic/hospital department * PROTIME-INR (07/01/2007 6:11 PM COFFEE SHOP AIDE) PROTIME 14.0 13.0 - 15.7 Secs INTERFACE SYSTEM Comment: As of 06 note change in normal range. INR 1.0 INTERFACE SYSTEM Comment: Expected Values for INR: DVT/PE Goal INR 2.5; range 2.0 - 3.0 Valve Replacement Tissue Goal INR 2.5; range 2.0 - 3.0 Mechanical Goal INR 3.0; range 2.5 - 3.5 POST-WV Goal INR 2.5; range 2.0 - 3.0 or Goal 3.0; range 2.5 - 3.5 Atrial Fibrillation Goal INR 2.5; range 2.0 - 3.0 Ischemic Stroke Goal INR 2.5; range 2.0 - 3.0 For additional information see Guidelines for Anticoagulation available from the pharmacy Aleksandra Otero, Pharm D. 07/01/2007 6:11 PM COFFEE SHOP AIDE us Marissa Hardin MD HEMATOLOGY ORDERABLES Edited Performing Organization Address [facility] Phone Number INTERFACE SYSTEM Refer to clinic/hospital department * (ABNORMAL) BASIC METABOLIC PANEL (07/01/2007 6:11 PM COFFEE SHOP AIDE) GLUCOSE 98 70 - 110 mg/dL INTERFACE [...] 295 mOsm/Kg INTERFACE SYSTEM 07/01/2007 6:11 PM COFFEE SHOP AIDE us Marissa Hardin MD CHEMISTRY ORDERABLES Edited Performing Organization Address [facility]/ZIP Co de Phone Number INTERFACE SYSTEM Refer to clinic/hospital department * CARDIAC ENZYMES (07/01/2007 6:11 PM COFFEE SHOP AIDE) TROPONIN I <0.1 0.0 - 1.3 ng/mL INTERFACE SYSTEM Comment: As of 06 the Troponin Reference Range has changed from 0.0-1.5 ng/ml to 0.0- 1.3 ng/ml due to a change in testing methodology. CKMB <0.2 0.0 - 5.0 ng/mL INTERFACE SYSTEM 07/01/2007 6:11 PM COFFEE SHOP AIDE us Marissa Hardin MD CHEMISTRY ORDERABLES Edited Performing Organization Address [facility] Co de Phone Number INTERFACE SYSTEM [...] occurrence documented in this encounter Care Teams Personal Support Worker Relationship Specialty Start Date End Date Non-Staff, Physician NO ADDRESS ON FILE PCP - General 07/02/07 documented as of this encounter
--- OUTSIDE RECORDS SUMMARY | 2025-07-07 00:43 | XMS_ITS | Encounter Summary ---
Author Organization [employer] [facility] Address [address] [place] [address] Care Team Providers Care Ore Puncher Name Role Phone Non-Staff, Physician Primary Care Provider Unava ilable Encounter Details Date Type Department Care Team (Late st Contact Info) Description 07/28/2007 Outpatient Historical [facility] [address] [place] [address] [address], 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
--- OUTSIDE RECORDS SUMMARY | 2025-07-07 00:43 | XMS_ITS | Encounter Summary ---
Author Organization [employer] [facility] Address [address] [place] [address] Care Team Providers Care Fixed Assets Accountant Name Role Phone Non-Staff, Physician Primary Care Provider Unava ilable Encounter Details Date Type Department Care Team (Late st Contact Info) Description 07/27/2007 Outpatient Historical [facility] [address] 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
--- OUTSIDE RECORDS SUMMARY | 2025-07-07 00:43 | XMS_ITS | Encounter Summary ---
Author Organization [facility] Address [address] [place] [address] Care Team Providers Care Mailroom Messenger Name Role Phone Non-Staff, Physician Primary Care Provider Unava ilable Encounter Details Date Type Department Care Team (Late st Contact Info) Description 07/21/2007 Emergency [facility] Emergency Department [address] 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
--- OUTSIDE RECORDS SUMMARY | 2025-07-07 00:43 | XMS_ITS | Encounter Summary ---
Author Organization [employer] [facility] Address [address] [place] [address] Care Team Providers Care Automatic Folder Seamer Name Role Phone Non-Staff, Physician Primary Care Provider Unava ilable Encounter Details Date Type Department Care Team (Late st Contact Info) Description 07/30/2007 Outpatient [facility] [address] 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
--- OUTSIDE RECORDS SUMMARY | 2025-07-07 00:44 | XMS_ITS | Encounter Summary ---
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 Gender Identity Not on file Sexual [...] CDT) CREATININE 0.5(L) 0.7 - 1.2 mg/dL [facility] CALCIUM 9.0 8.4 - 10.5 mg/dL [facility] GLUCOSE 109 70 - 110 mg/dL [facility] CHLORIDE 105 95 - 110 mEq/L [facility] ANION GAP 10 9 - 20 mEq/L [facility] SODIUM 138 136 - 145 mEq/L [facility] BUN 2(L) 7 - 17 mg/dL [facility] CO2 27 22 - 32 mmol/l [facility] POTASSIUM 4.0 3.5 - 5.0 mEq/L [facility] OSMOLALITY, CALCULATED 281 275 - 295 mOsm/Kg [facility] Blood specimen (specimen) 11/17/2007 3:26 AM CDT 11/17/2007 3:54 AM CDT us Angel Rene DO CHEMISTRY ORDERABLES Final Result [facility] [address] [place] [address] * (ABNORMAL) CBC WITH DIFFERENTIAL (11/17/2007 3:26 AM CDT) HEMATOCRIT 29.9(L) 36.0 - 46.0 % [facility] EOSINOPHILS 12.3(H) 0.0 - 7.0 % [facility] PLATELETS 182 140 - 440 K/ul [facility] EOSINOPHIL ABSOLUTE 0.5 0.0 - 0.7 K/ul [facility] RBC 3.68(L) 4.20 - 5.40 Mil/ul [facility] LYMPHOCYTES 25.9 24.0 - 44.0 % [facility] MCHC 31.1 30.0 - 35.0 g/dL [facility] LYMPHOCYTE ABSOLUTE 1.0(L) 1.2 - 4.0 K/ul [facility] MCV 81.3(L) 84.0 - 103.0 Fl [facility] MPV 10.3 8.9 - 12.8 Fl [facility] BASOPHILS ABSOLUTE 0.0 0.0 - 0.2 K/ul [facility] BASOPHILS 0.3 0.0 - 1.0 % [facility] HEMOGLOBIN 9.3(L) 12.0 - 16.0 g/dL [facility] RDW 14.7(H) 11.0 - 14.5 % [facility] MONOCYTE ABSOLUTE 0.5 0.1 - 0.6 K/ul [facility] MONOCYTES 14.1(H) 2.0 - 10.0 % [facility] WBC 3.8(L) 4.5 - 11.0 K/ul [facility] MCH 25.3(L) 27.0 - 34.0 pg [facility] NEUTROPHIL ABSOLUTE 1.8(L) 2.0 - 8.0 K/ul [facility] NEUTROPHILS 47.4 42.2 - 75.2 % [facility] Blood specimen (specimen) 11/17/2007 3:26 AM CDT 11/17/2007 3:54 AM CDT us Angel Rene DO HEMATOLOGY ORDERABLES Mercedes ashby Result [facility] [address] [place] [address] * XR UPR GI AND SMALL BOWEL [...] Christal Acuña M.D. Date Signed: 11/19/07 [facility] Procedure Note Christal Acuña - 11/19/2007 [...] By: Christal Acuña M.D. Electronically Signed By: Chrisatl Acuña M.D. Date Signed: 11/19/07 [facility] us Angel Rene DO DIAGNOSTIC IMAGING [...] CDT) BUN <2(L) 7 - 17 mg/dL [facility] CO2 31 22 - 32 mmol/l [facility] POTASSIUM 4.4 3.5 - 5.0 mEq/L [facility] OSMOLALITY, CALCULATED <287 275 - 295 mOsm/Kg [facility] CREATININE 0.6(L) 0.7 - 1.2 mg/dL [facility] CALCIUM 8.9 8.4 - 10.5 mg/dL [facility] GLUCOSE 111(H) 70 - 110 mg/dL [facility] CHLORIDE 104 95 - 110 mEq/L [facility] ANION GAP 10 9 - 20 mEq/L [facility] SODIUM 141 136 - 145 mEq/L [facility] Blood specimen (specimen) 11/15/2007 5:03 AM CDT 11/15/2007 6:00 AM CDT us Angel Rene DO CHEMISTRY ORDERABLES Final Result [facility] [address] [place] [address] * (ABNORMAL) CBC WITH DIFFERENTIAL (11/15/2007 5:03 AM CDT) LYMPHOCYTE ABSOLUTE 1.4 1.2 - 4.0 K/ul [facility] MCV 82.2(L) 84.0 - 103.0 Fl [facility] MPV 10.2 8.9 - 12.8 Fl [facility] BASOPHILS ABSOLUTE 0.0 0.0 - 0.2 K/ul [facility] BASOPHILS 0.1 0.0 - 1.0 % [facility] HEMOGLOBIN 9.6(L) 12.0 - 16.0 g/dL [facility] RDW 14.7(H) 11.0 - 14.5 % [facility] MONOCYTE ABSOLUTE 0.7(H) 0.1 - 0.6 K/ul [facility] MONOCYTES 9.6 2.0 - 10.0 % [facility] WBC 7.2 4.5 - 11.0 K/ul [facility] MCH 25.2(L) 27.0 - 34.0 pg [facility] NEUTROPHIL ABSOLUTE 4.6 2.0 - 8.0 K/ul [facility] NEUTROPHILS 64.0 42.2 - 75.2 % [facility] HEMATOCRIT 31.3(L) 36.0 - 46.0 % [facility] PLATELETS 220 140 - 440 K/ul [facility] EOSINOPHILS 6.7 0.0 - 7.0 % [facility] EOSINOPHIL ABSOLUTE 0.5 0.0 - 0.7 K/ul [facility] RBC 3.81(L) 4.20 - 5.40 Mil/ul [facility] MCHC 30.7 30.0 - 35.0 g/dL [facility] LYMPHOCYTES 19.6(L) 24.0 - 44.0 % [facility] Blood specimen (specimen) 11/15/2007 5:03 AM CDT 11/15/2007 6:00 AM CDT Angel Rene DO HEMATOLOGY ORDERABLES Mercedes l Result Performing Organization Address [facility] de Phone Number [facility] [address] [place] [address] * MAGNESIUM LEVEL (11/14/2007 4:21 AM CDT) MAGNESIUM 1.9 1.7 - 2.4 mg/dL [facility] Blood specimen (specimen) 11/14/2007 4:21 AM CDT 11/14/2007 4:43 AM CDT Angel Rene DO CHEMISTRY ORDERABLES Final Result Performing Organization Address [facility] Phone Number [facility] [address] [place] [address] * (ABNORMAL) BASIC METABOLIC PANEL (11/14/2007 4:21 AM CDT) CREATININE 0.5(L) 0.7 - 1.2 mg/dL [facility] CALCIUM 8.2(L) 8.4 - 10.5 mg/dL [facility] GLUCOSE 113(H) 70 - 110 mg/dL [facility] CHLORIDE 110 95 - 110 mEq/L [facility] SODIUM 139 136 - 145 mEq/L [facility] ANION GAP 10 9 - 20 mEq/L [facility] BUN 4(L) 7 - 17 mg/dL [facility] CO2 23 22 - 32 mmol/l [facility] OSMOLALITY, CALCULATED 284 275 - 295 mOsm/Kg [facility] POTASSIUM 4.0 3.5 - 5.0 mEq/L [facility] Blood specimen (specimen) 11/14/2007 4:21 AM CDT 11/14/2007 4:43 AM CDT Angel Rene DO CHEMISTRY ORDERABLES Final Result [facility] [address] [place] [address] * (ABNORMAL) CBC WITH DIFFERENTIAL (11/14/2007 4:21 AM CDT) RBC 3.84(L) 4.20 - 5.40 Mil/ul [facility] MCHC 30.7 30.0 - 35.0 g/dL [facility] MONOCYTE ABSOLUTE 0.6 0.1 - 0.6 K/ul [facility] LYMPHOCYTES 31.5 24.0 - 44.0 % [facility] MCV 81.5(L) 84.0 - 103.0 Fl [facility] NEUTROPHIL ABSOLUTE 2.4 2.0 - 8.0 K/ul [facility] MPV 10.3 8.9 - 12.8 Fl [facility] HEMOGLOBIN 9.6(L) 12.0 - 16.0 g/dL [facility] MONOCYTES 11.6(H) 2.0 - 10.0 % [facility] RDW 14.8(H) 11.0 - 14.5 % [facility] EOSINOPHIL ABSOLUTE 0.4 0.0 - 0.7 K/ul [facility] WBC 5.0 4.5 - 11.0 K/ul [facility] NEUTROPHILS 48.7 42.2 - 75.2 % [facility] MCH 25.0(L) 27.0 - 34.0 pg [facility] LYMPHOCYTE ABSOLUTE 1.6 1.2 - 4.0 K/ul [facility] HEMATOCRIT 31.3(L) 36.0 - 46.0 % [facility] PLATELETS 217 140 - 440 K/ul [facility] EOSINOPHILS 8.2(H) 0.0 - 7.0 % [facility] Blood specimen (specimen) 11/14/2007 4:21 AM CDT 11/14/2007 4:43 AM CDT us Angel Rene DO HEMATOLOGY ORDERABLES Mercedes l Result [facility] [place] [address] * CT ABDOMEN PELVIS W CONTRAST (11/13/2007 [...] (small) documented in this encounter Care Teams Kettle Chipper Relationship Specialty Start Date End Date Non-Staff, Physician NO ADDRESS ON FILE PCP - General 07/02/07 documented as of this encounter
--- OUTSIDE RECORDS SUMMARY | 2025-07-07 00:44 | XMS_ITS | Encounter Summary ---
Author Organization [email or web address] [facility] Address [address] [place] [address] Care Team Providers Care Painter Hand Name Role Phone Non-Staff, Physician Primary Care Provider Unava ilable Encounter Details Date Type Department Care Team (Late st Contact Info) Description 08/16/2007 Outpatient Historical [facility] [address] 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
--- OUTSIDE RECORDS SUMMARY | 2025-07-07 00:44 | XMS_ITS | Encounter Summary ---
Author Organization [employer] [facility] Address [address] [place] [address] Care Team Providers Care Woodworking Machine Setter Name Role Phone Non-Staff, Physician Primary Care Provider Unava ilable Encounter Details Date Type Department Care Team (Late st Contact Info) Description 11/13/2007 Outpatient Historical [facility] [address] [place] [address] AMBULANCE, [facility] AMBULANCE, [facility] Social History Tobacco Use Types Packs/Day Years Used Date Smoking Tobacco: Never Assessed Comments Unknown Sex and Gender Information Value Date Recorded Sex Assigned at Not on file 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
--- NOTE | 2025-07-07 00:59 | W.ED.ABDPA2 ---
HPI - Abdominal Pain General: Chief Complaint: Abdominal Pain Stated Complaint: ADB PAIN Time Seen by Provider: 07/07/25 00:37 History of Present Illness: 60-year-old female past medical history significant for hypertension, CAD, COPD, second-degree AV block, bowel obstruction, status post per patient gastric and colon resection for an ulcer related issue in the remote past, presenting to the emergency department with acute onset of abdominal pain starting at approximately 9 PM, 10 out of 10, feels as if her bowels are blocked to her, she has passed some mild flatus from below since onset but no bowel movement, her last bowel movement was yesterday July 05, no vomiting but positive nausea, no fevers, no urinary symptoms, no chest pain. Related Data Home Medications ?Medication ?Instructions ?Recorded ?Confirmed nitroglycerin 0.4 mg sublingual 0.4 mg sublingual Q5M PRN Chest 07/16/23 06/13/25 tablet (Nitrostat) Pain mhdxmtw-[id number]-skiymepp 250 2 tab PO Q6H PRN Pain 07/07/24 06/13/25 mg-250 mg-65 mg tablet (Excedrin Extra Strength) multivitamin 1 tab PO DAILY 06/13/25 06/13/25 Previous Rx's ?Medication ?Instructions ?Recorded tizanidine 2 mg tablet 2 mg PO Q6H PRN Spasms 14 days #30 05/18/24 tabs pantoprazole 40 mg tablet,delayed 40 mg PO BID 30 days #60 tabs 05/04/25 release (Protonix) carboxymethylcellulose sodium 1 % 2 drp ophthalmic (eye) 5XD PRN dry 05/23/25 eye drops (Artificial Tears eye(s) #15 mL (carboxymethylcellulose)) Allergies Allergy/AdvReac Type Severity Reaction Status Date / Time diphenhydramine (From Allergy Unknown Verified 06/13/25 14:12 Benadryl) hydromorphone (From Dilaudid) Allergy ADR-Vomitin Verified 06/13/25 14:12 g ibuprofen (From Motrin) Allergy ALGY-Anaphy Verified 06/13/25 14:12 laxis Penicillins Allergy ALGY-Anaphy Verified 06/13/25 14:12 laxis tramadol Allergy Unknown Verified 06/13/25 14:12 PFSH ED PFSH: Medical History HTN (hypertension) Atherosclerotic heart disease of [place] coronary artery with other forms of angina pectoris Other chest pain Small bowel obstruction Microcytic anemia Leukocytosis Dyslipidemia Nondisplaced fracture of fifth right metatarsal bone Fracture of fourth metatarsal bone of right foot SOB (shortness of breath) Hx of COPD, 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,quit in 2000 Metatarsal bone fracture Dysphagia Weight loss Peripheral neuropathy Abnormal EKG GERD (gastroesophageal reflux disease) Benign essential hypertension with target blood pressure below 140/90 Bradycardia AV block, 2nd degree Recurrent vomiting Nausea and vomiting Elevated blood pressure reading Unstable angina Chest pain Palpitations Chest pain Emphysema of lung Quit in 2019 Chronic migraine without aura, intractable, with status migrainosus Surgical History Status post colon resection H/O colonoscopy History of surgery ULCERS AND PART OF STOMACH REMOVED History of colon resection History of hysterectomy History of appendectomy History of cholecystectomy Family History (Reviewed 07/07/25 @ :00 by Blue Davenport MD) Mother CAD (coronary artery disease), Onset Age: 50 Cancer Lung disease Stroke Denies family history of Diabetes Clotting disorder Dementia Chronic kidney disease (CKD) Suicide Anesthesia complication Bleeding disorder Social History (Reviewed 07/07/25 @ :00 by Blue Davenport MD) Smoking and tobacco/nicotine status: former use of tobacco/nicotine Alcohol intake: former Substance/Drug Use: never Physical Exam Narrative: EXAM NARRATIVE: Gen: A&Ox4, no acute distress, nontoxic appearing HEENT: Normocephalic, atraumatic, no scleral icterus, external ears normal, moist mucous membranes Neck: Supple, full range of motion, no observable masses Lungs: No Respiratory distress, Lungs clear to auscultation bilaterally no rales, rhonchi, wheezing CV: Regular rate and rhythm, no murmur, no pitting edema to lower extremities bilaterally Abdomen: Abdomen diffusely tender, positive guarding, positive rigidity, no rebound, surgical scars noted to the abdomen MSK: No joint swelling, FROM all 4 extremities Skin: No rashes, petechiae, lesions. Normal color per patient. Neuro: Alert and oriented, no slurred speech, sensation and strength grossly intact all 4 extremities Psych: Appropriate for situation. Course Reevaluation(s): Reevaluation #1: Patient reevaluated this time, pain down to a 7 out of 10, no vomiting in the ED, NG tube ordered and about to be inserted, pending surgical consultation for disposition Time: 02:23 Reevaluation #2: Patient accepted to [facility] as an ER to ER transfer by Dr. Waller of general surgery, NG tube in place, stable for transfer Time: 04:00 Consultations: Consultation #1: Discussed case with radiologist Dr. Patricia who reports patient has a high-grade small bowel obstruction with a transition point in the right lower quadrant, there is also some associated transverse colitis, patient appears to be status post some sort of gastric surgery possibly a gastric bypass that was performed 40 years ago and is also status post cholecystectomy Time: :20 Consultation #2: Consulted general surgery Dr. Pruitt who will review imaging and call me back with recommendations Time: 02:24 Vital Signs: Vital signs: Vital Signs Temperature 98.4 F 07/07/25 00:45 Pulse Rate 104 H 07/07/25 01:36 Respiratory Rate 16 07/07/25 01:32 Blood Pressure 135/84 07/07/25 01:36 Pulse Oximetry 98 07/07/25 01:36 Oxygen Delivery Me thod Room Air 07/07/25 01:20 MDM - Abdominal Pain Medical Decision Making 60-year-old female history of COPD and cardiac issues, bowel obstruction in the past per chart review with history of colon and gastric resection for patient reported ulcer under unclear circumstances presenting the emergency department with acute onset of abdominal pain, last bowel movement over 24 hours ago, abdomen is rigid with guarding, concern for acute peritonitis versus recurrent bowel obstruction, plan for pain control, CT of the abdomen, reassess for disposition Lab Data Labs showing leukocytosis to 13, lactic acidosis to 2.6 07/07/25 01:05 07/07/25 01:05 Labs/Radiology: Radiology Impressions Abdomen/Pelvis CT 07/07/25 00:42 IMPRESSION: 1. High-grade bowel obstruction. Transition point in the right lower quadrant as noted above. Recommend enteric tube decompression. Recommend surgical consultation. No definite ischemic changes at this time. 2. Findings concerning for colitis involving the transverse colon and splenic flexure. 3. Stable intra and extrahepatic bile duct dilatation favored to represent reservoir effect in the post cholecystectomy state. Consider correlation with LFTs/bilirubin. Nonemergent follow-up MRCP can be obtained if clinically indicated. 4. Incidental adrenal gland thickening, which can be seen in the setting of adenomatous hyperplasia. 5. Mild thickening of the distal esophagus. Correlate for esophagitis. Nonemergent endoscopy could be considered if clinically indicated. ADDENDUM: 07/07/25 0222 Addendum: With special attention to the right lower quadrant transition point, no definite mass/lesion is noted. Mild wall thickening is noted at this level, which may be reactive. Consider follow-up CT abdomen and pelvis with contrast to document stability/resolution and exclude underlying lesion. Findings favor adhesive pathology. THIS REPORT CONTAINS FINDINGS THAT MAY BE CRITICAL TO PATIENT CARE. The findings were verbally communicated via telephone with Blue Davenport at 2:20 AM GROUND LAYER on 07/07/2025. The findings were acknowledged and understood. Laboratory Results WBC 13.02 10^3/uL (3.29-11.43) H 07/07/25 01:05 RBC 4.84 10^6/uL (3.85-5.65) 07/07/25 01:05 Hgb 11.40 g/dL (11.27-16.99) 07/07/25 01:05 Hct 38.2 % (36-47) 07/07/25 01:05 MCV 78.9 fl (85-98) L 07/07/25 01:05 MCH 23.6 pg (27-33) L 07/07/25 01:05 MCHC 29.8 g/dL (30-55) L 07/07/25 01:05 RDW 17.3 % (12.1-15.1) H 07/07/25 01:05 Plt Count 258 10^3/cmm (157-399) 07/07/25 01:05 MPV 9.8 fL (7.4-10.4) 07/07/25 01:05 Neut % (Auto) 86.5 % 07/07/25 01:05 Lymph % (Auto) 7.3 % 07/07/25 01:05 Treasure % (Auto) 4.8 % 07/07/25 01:05 Eos % (Auto) 0.8 % 07/07/25 01:05 Baso % (Auto) 0.2 % 07/07/25 01:05 Neut # (Auto) 11.26 10^3/uL (1.8-7.7) H 07/07/25 01:05 Lymph # (Auto) 1.0 10^3/uL (0.8-4.8) 07/07/25 01:05 Treasure # (Auto) 0.6 10^3/uL (0.2-0.9) 07/07/25 01:05 Eos # (Auto) 0.1 10^3/uL (0.0-0.8) 07/07/25 01:05 Baso # (Auto) 0.0 10^3/uL (0.0-0.1) 07/07/25 01:05 Nucleated RBC % (auto) 0 % 07/07/25 01:05 Nucleated RBCs # 0.0 /100WBC 07/07/25 01:05 Sodium 139 mmol/L (136-145) 07/07/25 01:05 Potassium 4.3 mmol/L (3.5-5.1) 07/07/25 01:05 Chloride 101 mmol/L (98-107) 07/07/25 01:05 Carbon Dioxide 24 mmol/L (22-29) 07/07/25 01:05 Anion Gap 18.3 (5-19) 07/07/25 01:05 BUN 10 mg/dL (8-23) 07/07/25 01:05 Creatinine 0.6 mg/dL (0.5-0.9) 07/07/25 01:05 GFR Calculation 102.0 mL/min (90-130) 07/07/25 01:05 Glucose 170 mg/dL (65-115) H 07/07/25 01:05 Calculated Osmolality 291 mOsm/kg (285-295) 07/07/25 01:05 Lactic Acid 2.6 mmol/L (0.5-2.2) H 07/07/25 02:10 Calcium 9.6 mg/dL (8.5-10.5) 07/07/25 01:05 Total Bilirubin 0.2 mg/dL (0.15-1.2) 07/07/25 01:05 AST 22 U/L (0-32) 07/07/25 01:05 ALT 22 U/L (0-33) 07/07/25 01:05 Alkaline Phosphatase 129 U/L (35-105) H 07/07/25 01:05 Total Protein 7.4 g/dL (6.6-8.7) 07/07/25 01:05 Albumin 5.1 g/dL (3.5-5.2) 07/07/25 01:05 Globulin 2.3 g/dL (1.3-4.6) 07/07/25 01:05 Lipase 19 U/L (13-60) 07/07/25 01:05 All radiology interpretation(s) finalized by discharge ED provider radiology interpretation(s): CT abdomen pelvis showing high-grade small bowel obstruction with transition point in the right lower quadrant without visible mass, transverse colitis, evidence of prior gastric bypass Discharge Plan Discharge Patient Disposition: Xfer Short-Term Hosp Clinical Impression: Complete obstruction of small intestine, Colitis Condition: Stable Referrals: Delonte Golden MD [Primary Care Provider, Family Practice] Patient Instructions: Abdominal Pain (ED) Print Language: Occitan Coding Level of Care Code ED Eap Specialist for Storm Wolfe
[2025-07-07 01:16] LABS: Hematocrit 38.2 % (36-47); Hemoglobin 11.40 g/dL (11.27-16.99); Mean Corpuscular HGB Conc 29.8 g/dL (30-55); Mean Corpuscular Hemoglobin 23.6 pg (27-33); Mean Corpuscular Volume 78.9 fl (85-98); Nucleated Red Blood Cells % 0 %; Platelet Count 258 10^3/cmm (157-399); Red Blood Count 4.84 10^6/uL (3.85-5.65); White Blood Count 13.02 10^3/uL (3.29-11.43)
--- NOTE | 2025-07-07 01:23 | PC.NURSE ---
Bedside report done with Christin MACEDO.
[2025-07-07] MEDS: ondansetron 2 mg/ML SDV 2 mL 4 MG IVP ×3 (01:32→07:41)
[2025-07-07] MEDS: morphine 4 mg/mL SDV 1 mL IVP ×4 (01:32→07:41)
[2025-07-07 01:35] LABS: Alanine Aminotransferase 22 U/L (0-33); Albumin Level 5.1 g/dL (3.5-5.2); Alkaline Phosphatase 129 U/L (35-105); Anion Gap 18.3 (5-19); Aspartate Amino Transferase 22 U/L (0-32); Blood Urea Nitrogen 10 mg/dL (8-23); Calcium 9.6 mg/dL (8.5-10.5); Carbon Dioxide 24 mmol/L (22-29); Chloride 101 mmol/L (98-107); Creatinine Clr Calc Pharmacy 81.7612; Globulin 2.3 g/dL (1.3-4.6); Glucose 170 mg/dL (65-115); Lipase 19 U/L (13-60); Osmolality Calculated 291 mOsm/kg (285-295); Potassium 4.3 mmol/L (3.5-5.1); Sodium 139 mmol/L (136-145); Total Protein 7.4 g/dL (6.6-8.7)
[2025-07-07] MEDS: iohexol 350 mg/mL 500 mL Btl (per mL) IV (02:01)
[2025-07-07 02:38] LABS: Lactic Sepsis W/Reflex 2.6 mmol/L (0.5-2.2)
[2025-07-07 04:02] LABS: Reflex Lactate Order REFLEX LACTIC ORDERD
--- NOTE | 2025-07-07 04:36 | PC.NURSE ---
Report called to Mildred Ambrocio RN at [facility]. All questions and concerns were addressed at time of report.
--- NOTE | 2025-07-07 04:38 | XRR_ITS ---
PROCEDURE INFORMATION: Exam: XR Chest Exam date and time: 07/07/2025 4:38 AM Age: 60 years old Clinical indication: Device placement; Ng tube; Additional info: Ng placement TECHNIQUE: Imaging protocol: Radiologic exam of the chest. Views: 1 view. COMPARISON: CT lung screening [id number] 05/31/2025 11:34 AM FINDINGS: Tubes, catheters and devices: Gastric tube terminates in the stomach. Lungs: Chronic interstitial prominence. Pleural spaces: Unremarkable. No pleural effusion. No pneumothorax. Heart/Mediastinum: Unremarkable. No cardiomegaly. Bones/joints: Unremarkable. XR/XR chest 1V portable [id number] IMPRESSION: No acute findings.
[2025-07-07 05:26] LABS: Lactic Acid level (Lactate) 1.9 mmol/L (0.5-2.2)
--- NOTE | 2025-07-07 06:47 | PC.NURSE ---
Report given Julia MACEDO at bedside.
--- NOTE | 2025-07-07 07:11 | PC.NURSE ---
bedside report completed with research subjectbritney Mcgrath RN.
== END 2025-07-07 07:42 | disposition short-term general hospital (02) ==
PROVIDERS: Emergency Provider Student in an Organized Health Care Education/Training Program; PCP Family Medicine
DX: K56.601 Complete intestinal obstruction, unspecified as to cause (principal); K52.9 Noninfective gastroenteritis and colitis, unspecified; Z87.891 Personal history of nicotine dependence; I25.118 Atherosclerotic heart disease of native coronary artery with other forms of angina pectoris; E78.5 Hyperlipidemia, unspecified; I10 Essential (primary) hypertension
CPT/HCPCS: 71045; 74177; 80053; 83605; 83690; 85025; 96374; 96375; 96376; 99285; J2270; J2405; J7030